=== PATIENT | male | born 1955 | race American Indian/Alaskan Native ===

== ENCOUNTER 2018-09-16 16:56 | Inpatient (IN) | payer OTHER ==
[~2018-09-16] VITALS: Ht 175.3 cm; Wt 132.3 kg
[~2018-09-16 16:56] MED LIST: ASPIRIN EC81 MG PO; B-12 DOTS500 MCG PO; BACTRIM DS TAB1 EACH PO; CRESTOR20 MG PO; FLOMAX0.4 MG PO; GLUCOPHAGE XR500 MG PO; HIBICLENS118 ML TOP; HYDROCHLOROTHIA25 MG PO; HYDROPHILIC120 GM TOP; LANTUS100 UNIT/1; LANTUS100 UNIT/1 SUB-Q; LANTUS100 UNITS/; LANTUS100 UNITS/ SUB-Q; LISINOPRIL20 MG PO; LISINOPRIL40 MG PO; METFORMIN HCL500 MG PO; MICROZIDE12.5 MG PO; NORVASC10 MG PO; NOVOLOG FL100 UNIT/1 SUB-Q; PREDNISONE20 MG PO; VITAMIN D35000 UNI1 PO; ZESTRIL10 MG PO
[2018-09-16] MEDS ORDERED: KEFLEX500 MG PO (19:21)
[2018-09-16] MEDS ORDERED: LIPITOR80 MG PO (19:27)
[2018-09-16] MEDS ORDERED: METOPROLOL TART50 MG PO (19:28)
--- NOTE | 2018-09-16 22:37 | NUR ---
PATIENTS ADMISSION COMPLETED. PATIENTS VITALS TAKEN BY SKIP TENDER. PATIENT DENIES ANY NEEDS. CALL LIGHT IN REACH.
--- NOTE | 2018-09-16 23:24 | NUR ---
PATIENT GIVEN SCHEDULED MEDICATIONS PER ORDER. PRN TYLENOL PROVIDE PER PATINET REQUEST FOR "8/10 PAINFULS SPASMS IN RIGHT LOWER LEG". PATIENT DENIES ANY FURTHER NEEDS. CALL LIGHT IN REACH.
--- NOTE | 2018-09-16 23:30 | NUR ---
PT RESTING IN BED, EYES CLOSED, SCHED ABX STARTED. PT AOX4, ASSESSMENT COMPLETE, LS CLEAR. PT DENIES ANY PAIN AT THIS TIME, PT STATES THAT HE HAS HAD A HX OF PAIN IN HIS BLE, ESPECIALLY HIS RIGHT EXTREMITY, COBAN WITH GAUZE NOTED ON RIGHT MID FOOT. ERYTHEMA NOTED TO PT'S RIGHT HARVEY WELL, APPEARS SAUL/SCALY, WARM. PT DENIES AN NUMBNESS OR TINGLING AT THIS TIME, CMS INTACT. NO REQUESTS AT THIS TIME, IV FLUIDS INFUSING PER EMAR, CALL LIGHT WITHIN REACH, FALL PRECAUITONS IN PLACE. PT ORIENTED TO ROOM, EDUCATION PROVIDED REGARDING MEDS/ DISEASE PROCESS.
--- NOTE | 2018-09-17 02:08 | NUR ---
PATIENT ASSISTED TO THE RESTROOM A SBA. PATIENT IS STEADY ON HIS FEET. PATIENT WAS ABLE TO VOID. PATIENT IS NOW BACK IN BED RESTING. PATIENTS RIGH LEG ELEVATED ON PILLOWS. NO FURTHER NEEDS NOTED. CALL LIGHT IN REACH.
--- NOTE | 2018-09-17 02:30 | NUR ---
IN ROOM FOR VITALS, VSS, PT AOX4, APPROPRIATE, ASSESSMENT COMPLETE, PT DENIES ANY PAIN AT THIS TIME, ASSESSMENT UNCHANGED FROM PREVIOUS. IV FLUIDS INFUSING PER EMAR WNL, CALL LIGHT WITHIN REACH, FALL PRECAUTIONS IN PLACE.
--- NOTE | 2018-09-17 03:30 | NUR ---
PT RESTING IN BED, EYES CLOSED, BREATHS EVEN, UNLABORED, NO REQUESTS AT THIS TIME, IV FLUIDS INFUSING PER EMAR WNL, CALL LIGHT WITHIN REACH. FALL PRECAUITONS IN PLACE.
--- NOTE | 2018-09-17 04:53 | NUR ---
PT IV ALARM SOUNDING. PT WOKE WHEN RN IN ROOM. REQUESTED PILLOW SUPPORTS FOR BOTH ARMS, AND NEW PILLOW UNDER HEAD. GRANTED. DENIES FURTHER NEEDS AT THIS TIME.
--- NOTE | 2018-09-17 05:21 | NUR ---
PT RESTING IN BED, EYES CLOSED, BREATHS EVEN, UNLABORED, NO REQUESTS AT THIS TIME, CALL LIGHT WITHIN REACH, FALL PRECAUTIONS IN PLACE. IV FLUID INFUSING PER EMAR WNL.
--- NOTE | 2018-09-17 06:08 | NUR ---
PT AOX4 THIS SHIFT, NO C/O PAIN THIS SHIFT. GAUZE DRESSING W/COBAN TO BOTTOM OF PT'S RIGHT FOOT. C/D/I. IV FLUIDS INFUSING PER EMAR. IV ABX GIVEN PER EMAR. 1PERSON SBA. ADA DIET. ACCUCHECKS.
--- NOTE | 2018-09-17 06:41 | NUR ---
PT UP TO BATHROOM WITH 1PERSON SBA, PT TOLERATED AMBULATING WELL, PT BACK TO BED NOW, PT GIVEN COFFEE PER PT'S REQUEST. NO FURTHER REQUESTS AT THIS TIME, IV FLUIDS INFUSING PER EMAR WNL. CALL LIGHT WITHIN REACH. FALL PRECAUTIONS IN PLACE.
--- NOTE | 2018-09-17 07:25 | NUR ---
PATIENT RESTING IN BED, BLOOD SUGAR TAKEN. PATIENT WASHED HANDS AND FACE WITH WARM WASH CLOTH. CALL LIGHT IN REACH. NO OTHER NEEDS AT THIS TIME.
--- NOTE | 2018-09-17 07:41 | NUR ---
Pt sleeping at this time, resp even and non labored. Pt appears to be comfortabl, no notable distress. Per report pt voiding Q/S urine output. Personal supplies and call light within reach. No needs at this time.
--- NOTE | 2018-09-17 10:46 | NUR ---
PATIENT RESTING IN BED, CALL LIGHT IN REACH. PATIENT STATES HE WOULD LIKE TO SHOWER LATER THIS AFTERNOON. NO OTHER NEEDS AT THIS TIME.
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
--- NOTE | 2018-09-17 15:03 | NUR ---
Pt in shower at this time with assist of u.s. commissioner. Pt has no needs at this time.
--- NOTE | 2018-09-17 15:34 | NUR ---
THIS CHURCH ORGANIST ASSISTED PATIENT UP INTO SHOWER, PATIENT SHOWERED INDEPENDENTLY WITH SUPERVISION. PATIENT BACK IN BEDSIDE RECLINER, CALL LIGHT IN REACH. NO OTHER NEEDS AT THIS TIME.
--- NOTE | 2018-09-17 15:53 | NUR ---
PT PLAN OF DC AT THIS TIME WILL BE TO RETURN HOME WITH HIS FAMILY.
[2018-09-17] MEDS ORDERED: GLUCOPHAGE500 MG PO (15:55)
--- NOTE | 2018-09-17 17:14 | NUR ---
BS REPORTED 53. PER PROTOCL ADMIN GLASS OF JUICE. WILL RECHECK BS IN 15 MIN AND CALL PROVIDER WITH RESULTS. PT AWAKE, ALERT AND ORIENTED X3. PT REPORTS HE WAS SLEEPING AND DID NOT FEEL SYMPTOMATIC AT ALL UNITL HE WOKE UP AND NOTICED HE WAS SWEATING A BIT. PT TOLERATING PO WELL. WILL MONITOR AND FOLLOW PROTOCOL FOR HYPOGLYCEMIA.
--- NOTE | 2018-09-17 17:29 | NUR ---
Blood sugar now 54. Gave pt full glass of juice per protocol. Pt is awake, alert and oriented x3. Will check bs again in 15 min. Dinner ordered.
--- NOTE | 2018-09-17 17:55 | NUR ---
ATTEMPTED TO CALL PROVIDER, NO ANSWER AT THIS TIME. BS HAS INCREASED TO 73. PT IS AWAKE, DOING WELL TOLERATING SNACKS AT THIS TIME. WILL CONTINUE TO ATTEMPT TO CONTACT PROVIDER. PT HAS NO NEEDS AT THIS TIME AND REPORTS HE "FEELS FINE". WILL CONTINUE TO MONITOR. SWEATING HAS SUBSIDED COMPLETELY.
--- NOTE | 2018-09-17 17:57 | NUR ---
PATIENT SITTING UP IN BED WAITING FOR DINNER. RN IN ROOM. CALL LIGHT IN REACH. NO OTHER NEEDS AT THIS TIME.
--- NOTE | 2018-09-17 18:10 | NUR ---
PT A&OX3. ON RA. IV SL. PT TOLERATING DIET. BS DECREASED TO 53 THIS SHIFT, INCREASING TO 73. PT TOLERATING DIET. WELL. PROVIDER TO BE NOTIFIED. 1PA. DECLINED PAIN MEDICATION THIS SHIFT.
--- NOTE | 2018-09-17 18:33 | NUR ---
SPOKE WITH DR. ABRAHAM REGARDING DECREASED BLOOD SUGARS' THIS EVENING. ORDER TO HOLD INSULIN FOR THIS MEAL; NON ADMIN DOSE IN EMAR THIS MEAL. PHARMACY QUESTIONED CURRENT LISINOPRIL DOSE OF 40MG PO PT STATES HE ONLY ACTUALLY TAKES 10MG AT HOME. PER DR. ABRAHAM HE WOULD LIKE TO KEEP DOSE AT 40MG INDICATED IN EMAR. DR. VELAZCO STATED NEW ADJUSTMENTS MADE IN EMAR FOR INSULIN MANAGEMENT.
--- NOTE | 2018-09-17 20:53 | NUR ---
COOP WITH ASSESSMENT, IVF VANCOMYCIN INFUSING, NO C/O ADVERSE REACTION. . DRESSING ON R FOOT
--- NOTE | 2018-09-17 22:10 | NUR ---
ROUNDED CHARGE. PATIENT IS RESTIN GIN BED WATCHING TV. PATIENT DENIES ANY COMMENTS, QUESTIONS OR CONCENRS. NO NEEDS NOTED. CALL LIGHT IN REACH.
--- NOTE | 2018-09-17 23:00 | NUR ---
RESTING, EYES CLOSED, ON ROOM AIR, AWAKENS EASILY, NO C/O APIN. R FOOT ELEVATED WITH PILLOWS, GOOD CMS, DRESSING CDI.
--- NOTE | 2018-09-18 02:53 | NUR ---
UP TO BR, VOIDED, BACK TO BED WITH 1PA, TOLERATED WELL, NO C/O PAIN DRESSING R FOOT INTACT
--- NOTE | 2018-09-18 03:47 | NUR ---
up to br from bed, voided and had a soft bm, up to chair r leg elevated, no c/o pain or resp distress, watching tv, no c/o hypoglycemia s/sx.
--- NOTE | 2018-09-18 06:13 | NUR ---
PT MEDICATED WITH TYLENOL 650MG PO C/O R FOOT PAIN. LEG ELEVATED WITH PILLOWS, DRESSING IN PLACE
--- NOTE | 2018-09-18 06:21 | NUR ---
PT HAS BEEN UP TO BR SEVERAL TIMES WITH ONE ASSIST, TO CHAIR FOR 2 HOURS, TOLERATED WELL, BACK TO BED. EDEMA 2+ R LE. DRESSING R FOOT INTACT. 1+ GENERALIZED EDEMA REST OF BODY, PT OBESE. MEDICATED WITH TYLENOL X1/ C/O PAIN. NO C/O N/V. NO C/O ADVERSE REACTION TO IV ABX. CURRENTLY AWAKE WATCHING TV
--- NOTE | 2018-09-18 07:27 | NUR ---
REPORT RECEIVED FROM STEPHANY FORD. PT AWAKE AND UP TO CHAIR. PT REPORTS "MORE" SWELLING IN RIGHT FOOT "COMPARED TO YESTERDAY." PT DENIES PAIN AND NAUSEA. PT ASSISTED WITH ORDERING BREAKFAST. NO ADDIITONAL REQUESTS OR COMPLAINTS. AT THIS TIME. CALL LIGHT WITHIN REACH.
--- NOTE | 2018-09-18 08:56 | NUR ---
MORNING ASSESSMENT AND MEDICATION DUE. THIS RN TO BEDSIDE. PT UP TO CHAIR, EATING BREAKFAST. PT DENIES PAIN AND NAUSEA. ASSESSMENT DONE, PERIPHERAL NEUROPATHY NOTED UP TO MID CALF. ABDOMINAL DISTENTION NOTED, PT REPORTS THIS IS "NORMAL." SMALL AMOUNT OF DRAINAGE NOTED ON THE BOTTOM (NEAR HEEL) OF RIGHT FOOT DRESSING. MEDICATIONS GIVEN (SEE MAR). PT STATES NO ADDITIONAL REQUESTS OR COMPLAINTS AT THIS TIME. CALL LIGHT WITHIN REACH.
--- NOTE | 2018-09-18 10:36 | NUR ---
NEW PIV STARTED PER PROTOCOL, BRISK BLOOD RETURN NOTED WITH IV START. VANCO STARTED (SEE MAR). PT VERBALIZES UNDERSTANDING TO CONTACT RN IF IV SITE BEGINS TO HURT. DIET COLA PROVIDED PER PT REQUEST. PT REMAINS UP TO CHAIR. NO ADDITIONAL REQUESTS OR COMPLAINTS AT THIS TIME. CALL LIGHT WITHIN REACH.
--- NOTE | 2018-09-18 12:15 | NUR ---
PTS CBG NOTED TO BE 80 WITH PREVIOUS HYPOGLYCEMIC EPSIDOE YESTERDAY AFTERNOON. MD CONSULTED REGARDING INSULIN DOSAGES, NEW ORDERS PLACED. PT UPDATED ON PLAN OF CARE. DIABETIC DIET EDUCATION DONE. EDUCATION R/T WOUND HEALING, BLOOD SUGAR AND "WHAT IS A CARBOHYDARTE?" DONE. PT VERBALIZES UNDERSTANDING AND POINTS OUT CARBOHYRATES ON HIS LUNCH PLATE. ASSESSMENT DONE. MD ORDERS TO HOLD LUNCH TIME INSULIN, MARKED NOT GIVEN. PT VISITING WITH AND EATING LUNCH. NO ADDITIONAL REQUESTS OR COMPLAINTS AT THIS TIME. CALL LIGHT WITHIN REACH.
--- NOTE | 2018-09-18 12:40 | NUR ---
PT CALL LIGHT ON. PT REQUESTS ASSISTANCE UP TO RESTROOM. PT ASSISTED UP, SBA, PT TOLERATED WELL. PT 800ML VOIDS WITHOUT ISSUE. PT ENCOAURGED TO WALK IN HALLWAY. PT ABLE TO MAKE 2 LAPS AROUND UNIT. PT DENIES DIZZINESS AND PAIN IN FOOT. SOB WITH AMBULATON. PT BACK TO ROOM AND UP TO CHAIR. PT WATCHING TV. NO ADDITIONAL REQUESTS OR COMPLAINTS. CALL LIGHT WITHIN REACH.
--- NOTE | 2018-09-18 13:55 | NUR ---
PT CALL LIGHT ON. PT REQUESTS ASSISTANCE BACK TO BED. PT UP AND BACK TO BED, SBA. PT REQUESTS "SOMETHING SWEET TO EAT." SUGER FREE JELLO AND PUDDING PROVIDED. EDUCATION DONE R/T DIABETES AND SUGAR INTAKE. PT VERBALIZES UNDERSTANDING AND STATES THAT "SUGAR FREE IS FINE." CALL LIGHT WITHIN REACH. NO ADDITIONAL REQUESTS OR COMPLAINTS AT THIS TIME.
--- NOTE | 2018-09-18 14:30 | NUR ---
PATIENT SAID MAYBE TAKE A SHOWER LATER.
--- NOTE | 2018-09-18 16:28 | NUR ---
THIS RN TO BEDSIDE FOR ROUNDS WITH MD. PT DENIES PAIN AND NAUEA. RIGHT LEG/FOOT CONTINUES TO APPEAR MORE SWOLLEN THAN LAST ASSESSMENT. MD REMOVES DRESSING FROM RIGHT FOOT. YELLOW DRAINAGE NOTED. RIGHT LEG HOT COMPARED TO LEFT LEG. NON-AHERANT GAUZE APPLIED WITH COBAN TO RIGHT FOOT PER DR. ABRAHAM'S INSTRUCTONS. DR. WOOD CALLED (PER DR. ABRAHAM'S INSTRUCTIONS) AND STATES HE WILL BE IN TO SEE PT SOON AND STATES THAT PT SHOULD NOT SHOWER, KEEP FOOT DRY FOR NOW. FULL ASSESSMENT DONE. MEDICATIONS GIVEN. CBG= 86. DR. ABRAHAM CONSULTED. INSULIN ORDERS CHANGED. PT AWAITING DINNER. NO ADDITIONAL REQUESTS OR COMPLAINTS AT THIS TIME. CALL LIGHT WITHIN REACH.
--- NOTE | 2018-09-18 17:57 | NUR ---
PT HERE FOR LEFT FOOT CELLULITS. DR ENCARNACION IN TO REVIEW WOUND STATUS TODAY, NEW DRESSING APPLIED, NEW DRESSING ORDERS PLACED, SHOE IN PLACE. INCREASED SWELLING AND HEAT TO RIGHT LEG TODAY. NEW PIV IN RFA, SL. INSULIN ORDERS DC'D TODAY R/T LOW BLOOD SURGARS, ONLY SLINDING SCALE REMAINS. PT UP TO AMBULATE TODAY. NO SHOWERS PER MD ORDER, BED BATH DECLINED TODAY. PT USES CALL LIGHT APPROPRIATLY.
--- NOTE | 2018-09-18 19:00 | NUR ---
SHIFT REPORT RECEIVED FROM DAYSHIFT RN AT BEDSIDE. PT AWAKE, DENIES NEEDS AT THIS TIME. RR EVEN AND UNLABORED. CALL LIGHT IN REACH.
--- NOTE | 2018-09-18 19:00 | NUR ---
HELPED PT BACK TO BED FROM THE BATHROOM. BEDSIDE TABLE AND CALL LIGHT IN REACH.
--- NOTE | 2018-09-18 21:47 | NUR ---
ASSESSMENT COMPLETE. PT A/OX3. PT DENIES PAIN AT THIS TIME. GENERALIZED 1-2+ EDEMA NOTED TO BLE, SKIN TEMPERATURE WARMER TO RLE. DRESSING CDI ON RLE. IV ABX INFUSING, SITE WNL. PT DENIES FURTHER NEEDS, CALL LIGHT IN REACH.
--- NOTE | 2018-09-18 21:48 | NUR ---
VITALS AND I&OS DONE AND CHARTED. BEDSIDE TABLE AND CALL LIGHT IN REACH. PT NEEDS NOTHING AT THIS TIME.
--- NOTE | 2018-09-18 22:00 | NUR ---
INFORMED BY HOME STAGER NOVEMBER OF PT'S VS. HR 53, BP 138/67, MAP 84. INFORMED RN CORRECTIONAL LOGAN OF PT'S VS. INSTRUCTED BY RN CORRECTIONAL TO WAIT ON ADMINISTERING PT'S SCHEDULED NICARDIPIN AND METOPROLOL TO SEE IF HR RISES. OTHER SCHEDULED MEDICATIONS GIVEN WITHOUT CONCERN.
--- NOTE | 2018-09-18 22:15 | NUR ---
Informed by lyric november of pt's 53hr. bp 138/67. This rn had an apical hr of 54. This rn infomred bellows charger assembler riaz. instructed by emma mabry to hold scheduled metoprolol and nicardipin and recheck hr "a little later in the evening". At 2250, this rn rechecked pt's hr. apical hr of 54, bp 154/85. Again informed bellows charger assembler of results, instructed by bellows charger assembler to hold scheduled metoprolol and nicardipin due to hr parameters in EMAR.
--- NOTE | 2018-09-18 23:00 | NUR ---
BP RESULT OF 154/58, MAP OF 84. APICAL HR OF 54. CHIEF LIBRARIAN BRANCH OR DEPARTMENT LOGAN AWARE. INSTRUCTED BY CHIEF LIBRARIAN BRANCH OR DEPARTMENT LOGAN TO HOLD SCHEDULED CARDIAC MEDICATIONS. THIS RN ASKED IF DR ABRAHAM SHOULD BE MADE AWARE, INSTRUCTED BY CHIEF LIBRARIAN BRANCH OR DEPARTMENT LOGAN THAT CALLING DR ABRAHAM WAS NOT NECESSARY.
--- NOTE | 2018-09-18 23:13 | NUR ---
HELPED PT BACK TO BED FROM THE BATHROOM. TWO PILLOWS GIVEN. BEDSIDE TABLE AND CALL LIGHT IN REACH.
--- NOTE | 2018-09-19 00:10 | NUR ---
SPOKE TO DR ABRAHAM REGARDING PT'S HR AND BP. DR ABRAHAM AWARE OF LAST SET OF VS TAKEN BY THIS RN AT 2250. APICAL HR 54, BP 154/68, MAP 86. INSTRUCTED TO GIVE SCHEDULED METOPROLOL AND NICARDIPIN. INSTRUCTED TO ONLY HOLD METOPROLOL IF HR IS LESS THAN 50 BPM. SCHEDULED CARDIAC MEDICATIONS GIVEN. 2200 SCHEDULED IV VANCO ALSO GIVEN, SITE WNL. PT VERBALIZED DISCOMFORT AT BLE, GENERALIZED EDEMA NOTED, PILLOWS PLACED UNDER BLE FOR ELEVATION. NO FURTHER NEEDS, CALL LIGHT IN REACH.
--- NOTE | 2018-09-19 00:30 | NUR ---
IV VANCO INFUSING, SITE WNL. RR EVEN AND UNLABORED. CALL LIGHT IN REACH, PT DENIES FURTHER NEEDS.
--- NOTE | 2018-09-19 01:11 | NUR ---
PT RESTING IN BED, EYES CLOSED. RR EVEN AND UNLABORED. IV ABX COMPLETE, FLUSHING NOW, SITE WNL. CALL LIGHT IN REACH.
--- NOTE | 2018-09-19 04:48 | NUR ---
ASSESSMENT COMPLETE. NO NEW CONCERNS. PT A/OX4, DENIES PAIN. PT WISHES FOR PRN BS CHECK PT STATED, "I FEEL HUNGRY AND I FEEL LIKE I DO SOMETIMES WHEN MY BS IS GONNA BE LOW". [employer] NOVEMBER COMPLETED BS CHECK, RESULT OF 91. SF SNACK PROVIDED FOR PT'S HUNGER. PT DENIES DIZZINESS, SWEATINESS. NO FURTHER NEEDS, CALL LIGHT IN REACH.
--- NOTE | 2018-09-19 04:56 | NUR ---
VITALS AND I&OS DONE AND CHARTED. BLOOD SUGAR DONE WELL. HELPED PT GET TO THE BED FROM THE CHAIR. PUDDING AUTOMATIC SCREWMAKER PER REQUEST OF PT. BEDSIDE TABLE AND CALL LIGHT IN REACH.
--- NOTE | 2018-09-19 06:39 | NUR ---
PT HAD A KATYA, SLEPT ON AND OFF DURING SHIFT. PT A/OX4, DENIED PAIN. PT AMBULATES 1PSBA. FOOT BOOT TO RIGHT LE WITH LEG DRESSING. CARDIAC MEDICATIONS INITIALLY HELD DUE TO 54HR, BUT GIVEN AROUND 0000 PER REDDYS ORDERS. PT ON ADA DIET, WITH INSULIN SS. PT SL, IV SITE WNL. PT USES CALL LIGHT APPROPERIATELY.
--- NOTE | 2018-09-19 07:30 | NUR ---
PATIENT REPORT RECEIVED FROM JEFFRY HAMMOND, PATIENT IS SLEEPY AND REMAINS ASLEEP DURING REPORT BUT WAKES EASILY TO HIS NAME. PATIENT BED IN THE LOW POSITION AND RAILS ARE UP.
--- NOTE | 2018-09-19 08:19 | NUR ---
PATIENT HAS DRESSING TO THE RIGHT FOOT THAT IS INTACT WITH COBAN, NETTING AND THE BLUE WALKING SHOE, CMS IS INTACT AT THIS TIME. HE DENIES ANY PAIN CURRENTLY AND BLOOD SUGAR IS 95, NO INSULIN REQUIRED AT THIS TIME. PATIENT GIVEN A DIET COKE AND BREAKFAST SET UP FOR HIM.
--- NOTE | 2018-09-19 11:01 | NUR ---
Pt. up from chair to bathroom for bedbath; repositioned in chair with feet elevated; Pt. lungs clear, equal bilateral, sinus rhythm, no murmurs or rubs detected, R LE dressing dry and intact, cap refill 2 sec. bilateral dorsalis pedis pulses present, R LE skin warm and dry, bruising present. Pain at 0.
--- NOTE | 2018-09-19 11:39 | NUR ---
KATIE FROM NUTRITION IN TO SPEAK WITH THE PATIENT RE: ADA DIET
--- NOTE | 2018-09-19 11:46 | NUR ---
PATIENT HAS HAD DIABETES FOR APPROXIMATELY 8 YEARS. 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 PATIENT TAKES INSULIN AT HOME AND SAYS HE SOMETIMES HAS A HIGH BLOOD SUGAR IN THE MIDDLE OF THE NIGHT SO HE WILL TAKE SOME SHORT ACTING INSULIN WITH A BITE OF FOOD. HIS ALSO HAS DIABETES AND HER BLOOD SUGARS ARE IN GOOD CONTROL. PATIENT SAID "IF I LISTENED TO MY I'D HAVE GOOD BLOOD SUGARS, TOO." HE EATS LARGE PORTIONS. HAS BEEN AVOIDING RICE AND PASTA. 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 HE PROBABLY WILL GET AN APPOINMENT WITH THE NEW DIETITIAN OUT AT [facility]. LITTLE EDUCATION PROVIDED SINCE PATIENT NOT NEW TO DIABETES BUT TRIED TO REINFORCE FOLLOWING UP WITH A DIETITIAN AT [employer] AND TO EAT REGULAR MEALS. WILL REMAIN AVAILABLE IF NEEDED.
--- NOTE | 2018-09-19 12:44 | NUR ---
Pt. up in chair eating, R LE wound dry and warm, LE cap. refill 1.5 sec bilateral, skin warm dry, pedal pulses present equal bilateral. Pt. pain rate 0.
--- NOTE | 2018-09-19 13:29 | NUR ---
IV ABX HUNG AT THIS TIME, PATIENT ATE 100% OF LUNCH AND DENIES OTHER NEEDS AT THIS TIME. PO KAYEXELAYTE GIVEN AT THIS TIME.
--- NOTE | 2018-09-19 15:22 | NUR ---
WHEN I WENT IN AROUND 2PM PATIENT WAS SITTING UP IN CHAIR WITH FEET ELEVATED.
--- NOTE | 2018-09-19 15:57 | NUR ---
PATIENT STAND BY ASSIST UP TO THE BATHROOM, HE HAD HIS THIRD LOOSE BM SINCE RECEIVING KAYEXELATE PO. PATIENT AMBULATED BACK TO THE CHAIR AND IS AWAITING DINNER. COFFEE AND WATER GIVEN TO THE PATIENT AT THIS TIME.
--- NOTE | 2018-09-19 16:34 | NUR ---
patient's blood glucose was 144 at this time, patient per sliding scale is not receiving insulin at this time. patient remains up in the chair with feet elevated. he has no c/o pain and gown changed at this time. cms intact to the right foot, dressing is cdi
--- NOTE | 2018-09-19 19:10 | NUR ---
SHIFT REPORT RECEIVED FROM DAYSHIFT STEPHANY LANGLEY. PT AWAKE RESTING IN CHAIR, RR EVEN AND UNLABORED. SNACK PROVIDED BY SHIVAM HAMMOND PER PT REQUEST. NO FURTHER NEEDS, CALL LIGHT IN REACH.
--- NOTE | 2018-09-19 20:21 | NUR ---
VITALS AND I&OS DONE AND CHARTED. BEDSIDE TABLE AND CALL LIGHT IN REACH. PT NEEDS NOTHING AT THIS TIME.
--- NOTE | 2018-09-19 21:11 | NUR ---
VITALS DONE AND CHARTED. PER PT REQUEST I GAVE HIM SOME SUGAR FREE JELLO. BEDSIDE TABLE AND CALL LIGHT IN REACH.
--- NOTE | 2018-09-19 21:15 | NUR ---
ASSESSMENT COMPLETE. VSS, SCHEDULED MEDICATIONS GIVEN (SEE EMAR). PT A/OX4, DENIES PAIN. STRONG PEDAL PULSES NOTED BILATERALLY. SMALL YELLOW LIKE SHADOWING NOTED UNDER SYLVIA WRAP, BOOT IN PLACE. IV ABX INFUSING, SITE WNL. NO FURTHER NEEDS, CALL LIGHT IN REACH.
--- NOTE | 2018-09-19 22:32 | NUR ---
PATIENT ASKED TO USE FOR ASSISTANCE TO REST ROOM. HE WAS ASSISTED INTO BED AFTER HE WAS FINSHED USING THE RESTROOM. HE REQUESTED A DIET COLA AND IT WAS APPROVED BY STEPHANY HIRSCH. BEDSIDE TABLE AND CALL LIGHT WAS IN REACH.
--- NOTE | 2018-09-19 22:45 | NUR ---
IV PUMP BEEPING. INFUSION COMPLETE. CONSULTED PRIMARY NURSE, PHILIP IV. pt RESTING WITH EYES CLOSED, RESPIRATIONS REGULAR. CALL LIGHT WITHIN REACH.
--- NOTE | 2018-09-20 00:20 | NUR ---
SUPERVISOR SPINNING NOVEMBER COLLECTED BS AND BP. BS RESULT OF 144, BP RESULT OF 126/56 (MAP 74). HR 60. PT STATES, "I FEEL FINE" TO SUPERVISOR SPINNING NOVEMBER. NO FURTHER NEEDS, PT QUICKLY WENT BACK TO SLEEP PER SUPERVISOR SPINNING NOVEMBER.
--- NOTE | 2018-09-20 00:20 | NUR ---
SCHEDULED VANCO INFUSING, SITE FLUSHED AND WNL. PT AMBULATED SBA TO RESTROOM TO VOID. PT REPORTS MILD DIZZINESS, AND WISHES TO HAVE BS CHECKED. PT SITTING IN BATHRROM, INSTRUCTED TO PULL CORD WHEN DONE, PT VERBALIZES UNDERSTANDING.
--- NOTE | 2018-09-20 00:37 | NUR ---
VITALS AND BLOOD SUGAR DONE AND CHARTED. INFORMED HIS RN TORREY OF RESULTS. HELPED PT BACK TO BED FROM THE BATHROOM. BEDSIDE TABLE AND CALL LIGHT IN REACH.
--- NOTE | 2018-09-20 02:40 | NUR ---
ASSESSMENT COMPLETE. NO NEW CONCERNS. PT RETING COMFORTABLY, RR EVEN AND UNLABORED. RLE DRESSING INTACT, BOOT IN PLACE. NO NEW SHADOWING NOTED. CALL LIGHT IN REACH. PT SL, SITE WNL.
--- NOTE | 2018-09-20 05:59 | NUR ---
PT HAD A GOOD NIGHT. PT A/OX4, DENIES PAIN THIS SHIFT. PT AMBULATES 1PA, TOLERATES WELL. PT ON ADA DIET WITH SCHEDULED ACCUCHECKS WITH INSULIN SS. PT DENIES NAUSEA THIS SHIFT, BOWEL TONES ACTIVE. BOOT AND DRESSING TO RLE, SCHEDULED DRESSING CHANGE TO BE DONE TODAY (09/20/18). PT SL, SCHEDULED IV ABX, SITE WNL. VSS. USES CALL LIGHT APPROPERAITELY.
--- NOTE | 2018-09-20 07:15 | NUR ---
REPORT RECEIVED FROM STEPHANY HIRSCH. PT RESTING ON LEFT SIDE WITH EYES CLOSED, SNORING NOTED, REGULAR RATE AND RHYTHEM. BED RAILS UP. CALL LIGHT WITHIN REACH.
--- NOTE | 2018-09-20 08:53 | NUR ---
MORNING ASSESSMENT AND MEDICATIONS DUE. THIS RN TO BESIDE. PT AWAKE AND DENIES PAIN AND NAUSEA. PT UP FOR MORNING CARES, BRUSHES TEETH AND USES RESTROOM WITH SBA. PT UP TO CHAIR FOR BREAKFAST. ASSESSMENT DONE. DRESSING CHANGED TO RIGHT FOOT PER MD ORDER. WOUND HAS GRANULATION AROUND EDGES AND IS YELLOW IN CENTER. EDGES ARE MACURATED AND SURROUNDING AREA IS BLANCHABLE. HEAT IN RIGHT LEG IS DIMISHED TODAY AND TEMPERATURE IS NEAR THAT OF LEFT LEG. MEDICATIONS GIVEN (SEE MAR). PT EATING BREAKFAST. CALL LIGHT WITHIN REACH.
--- NOTE | 2018-09-20 09:40 | NUR ---
SIMEON PERFORMED HIS OWN AM CARE, VS DONE, PATIENT NEEDED NO OTHER ASSISTANCE AT THE MOMENT
[2018-09-20] MEDS ORDERED: DOXYCYCLINE HY100 MG PO (10:18)
[2018-09-20] MEDS ORDERED: NORVASC5 MG PO (10:20)
--- NOTE | 2018-09-20 10:23 | NUR ---
THIS RN TO ROOM WITH MD FOR ROUNDS. EDUCATION DONE REGARDING DIABETES AND THE IMPORTANCE OF MAINTAINING HEALTHY BLOOD SUGAR VALUES FOR WOUND HEELING. PT ANTICIPATING DISCHARGE LATER TODAY (AFTER VANCO INFUSION). PHONE ARMATURE REPAIRER PROVIDED FOR PT. PT CALLING . NO REQUESTS OR COMPLAINTS AT THIS TIME.
--- NOTE | 2018-09-20 10:56 | NUR ---
VANCO ARRIVED FROM [facility]. PIV ASSESSED, WNL. GIVEN ORDERED (SEE MAR). PT ANTICIPATING DISCHARGE AFTER VANCO INFUSION. NO ADDITIONAL REQUESTS OR COMPLAINTS AT THIS TIME. CALL LIGHT WITHIN REACH.
--- NOTE | 2018-09-20 12:44 | NUR ---
PT CALL LIGHT ON. PT STATES HE IS READY FOR DISCHARGE. DISCHARGE INSTRUCTIONS REVIEWED, AT BESIDE FOR DISCHARGE INSTRUCTIONS. PT AND VERBALIZE UNDERSTANDING OF DISCHRAGE INSTRUCTIONS AND STATE THEIR QUESTIONS HAVE BEEN ANSWERED. PHARMACIST TO BEDSIDE TO REVIEW MEDICATIONS. PT AND VERBALIZE UNDERSTANDING OF MEDICATIONS EXCEPT PT STATES "I DONT' HAVE A SLINDING SCALE I JUST GIVE MYSELF WHATEVER I FEEL LIKE." PT ASKED TO WAIT WHILE MD IS CONSULTED REGARDING SLIDING SCALE HE SHOULD BE USING AT HOME. 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 STEADY ON FEET AND DENIES DIZZINESS. CALL LIGHT WITHIN REACH. AWAITING RESPONSE FROM PHARMACY OR MD REGARDING INSLUIN SLIDING SCALE FOR HOME USE.
--- NOTE | 2018-09-20 13:10 | NUR ---
MD STATES THAT PCP WILL FOLLOW UP WITH PT REGARDING SLIDING SCALE INSULIN. PT VERBALIZES UNDERSTANDING TO FOLLOW UP WIHT PCP REGARDING INSULIN DOSAGING. PT WHEELED FROM CLINIC. PT AND STATE THEY HAVE NO ADDITIONAL QUSTIONS, COMPLAINTS OR CONCERNS AT THIS TIME.
== END 2018-09-20 13:10 | disposition home or self-care (01) | DRG 623 ==
LOC: ED 16:56 → MS 20:21
PROVIDERS: ADMIT Internal Medicine
PROC: 0JBQ0ZZ Excision of Right Foot Subcutaneous Tissue and Fascia, Open Approach (ICD-10-PCS; principal; 2018-09-18)
DX: E11.628 Type 2 diabetes mellitus with other skin complications (principal); L03.115 Cellulitis of right lower limb; L97.418 Non-pressure chronic ulcer of right heel and midfoot with other specified severity; E11.65 Type 2 diabetes mellitus with hyperglycemia; E11.42 Type 2 diabetes mellitus with diabetic polyneuropathy; I10 Essential (primary) hypertension; E78.5 Hyperlipidemia, unspecified; M47.9 Spondylosis, unspecified; D64.9 Anemia, unspecified; E11.621 Type 2 diabetes mellitus with foot ulcer; E87.5 Hyperkalemia; T46.4X5A Adverse effect of angiotensin-converting-enzyme inhibitors, initial encounter; I25.10 Atherosclerotic heart disease of native coronary artery without angina pectoris; Z95.1 Presence of aortocoronary bypass graft; Z79.82 Long term (current) use of aspirin; Z79.4 Long term (current) use of insulin; Z79.899 Other long term (current) drug therapy
CPT/HCPCS: 36415; 73630; 80048; 80053; 80202; 82607; 82728; 82746; 83036; 83540; 83605; 83735; 84466; 85025; 87070; 87205; 96365; 99284-25; J1335; J1650; J1815; J3370; J7060; J7120

== ENCOUNTER 2020-05-12 14:16 | Inpatient (IN) | payer MEDICARE, OTHER ==
[~2020-05-12] VITALS: Ht 175.3 cm; Wt 111.6 kg
--- OUTSIDE RECORDS SUMMARY | ~2020-05-12 | XMS | Encounter Summary ---
Demographics + + + | Address | [address] | | | [place] [address] | + + + | Home Phone | | + + + | Preferred Language | Unknown | + + + | Marital Status | Legally | + + + | Christianity Affiliation | 1041 | + + + | Race | or | + + + | Ethnic Group | Not or | + + + Author + + + | Author | [facility] | | | and [place] | + + + | Organization | [facility] | | | and [place] | + + + | Address | Unknown | + + + | Phone | Unavailable | + + + Support + + + + + | Name | Relationship | Address | Phone | + + + + + | Jenniffer Chew | ECON | [address] | | | | | [address] | | | | | [address] | | + + + + + Care Team Providers + +------+ + | Care Cardroom Plastic Card Grader Name | Role | Phone | + +------+ + | Kaylan Montaño PA-C | PCP | | + +------+ + Encounter Details +--------+ + + + + | Date | Type | Department | Care Team | Description | +--------+ + + + + | 06/14/ | Hospital | [facility] | Kendall Morales MD | Coronary artery | | 2016 - | Encounter | [facility] | [address] | disease involving | | | | CARE [address] | [place], [place] | [place] coronary | | 06/22/ | | [address] | [address] | artery of [place] | | 2016 | | [place], [place] | | heart with unstable | | | | [address] | | angina pectoris | | | | [phone] | | (HCC) | +--------+ + + + + Social History + +-------+ +--------+------+ | Tobacco Use | Types | Packs/Day | Years | Date | | | | | Used | | + +-------+ +--------+------+ | Former Smoker | | | | | + +-------+ +--------+------+ + + +---------+ + | Alcohol Use | Drinks/Week | oz/Week | Comments | + + +---------+ + | No | | | | + + +---------+ + + + + | Sex Assigned at | Date Recorded | | | | + + + | Not on file | | + + + documented as of this encounter Last Filed Vital Signs + + + + + | Vital Sign | Reading | Time Taken | Comments | + + + + + | Blood Pressure | 144/73 | 06/22/2016 12:46 PM | | | | | PDT | | + + + + + | Pulse | 69 | 06/22/2016 12:46 PM | | | | | PDT | | + + + + + | Temperature | 36.6 C (97.8 F) | 06/22/2016 12:46 PM | | | | | PDT | | + + + + + | Respiratory Rate | 20 | 06/22/2016 12:46 PM | | | | | PDT | | + + + + + | Oxygen Saturation | - | - | | + + + + + | Inhaled Oxygen | - | - | | | Concentration | | | | + + + + + | Weight | 130.8 kg (288 lb 5.8 | 06/22/2016 12:46 PM | | | | oz) | PDT | | + + + + + | Height | 175.3 cm (5' 9") | 06/22/2016 12:46 PM | | | | | PDT | | + + + + + | Body Mass Index | 42.58 | 06/22/2016 12:46 PM | | | | | PDT | | + + + + + documented in this encounter Discharge Summaries Alena Coto PA-C - 06/21/2016 1:08 PM PDTFormatting of this note might be dif ferent from the original. Discharge Summaries by Alena Coto PA-C at 06/21/16 1873 Author: Alena Coto PA-C Service: Cardiac, Thoracic, and Vascular Surgery Au thor Type: Physician Filler Shaker - Certified Filed: 06/22/16 1033 Date of Service: 06/21/16 1308 Status: Attested Software Packager: Alena Coto PA-C (Physician Filler Shaker - Certified) Cosigner: Xavi Alvarez MD at 06/23/16 1009 Attestation signed by Xavi Alvarez MD at 06/23/16 1009 I have examined Tr Caballero, reviewed the notes, assessments, and/or procedures performed by Alena Mike PA-C, I concur with her documentation of Tr Caballero. Service: Cardiothoracic Surgery Discharge Summary Pt: Tr Caballero AGE/SEX: 61 y.o. male ROOM: [address] [place] [address] : 1955 PCP: Kaylan Montaño Date/Time:06/22/2016 10:29 AM Date of Admission: 06/14/2016 Date of Discharge: 06/22/16 Hospital Day: LOS: 8 days Surgery/Procedure: 06/15/16 1) Coronary artery bypass grafting x 3 ([facility]WOOD-LAD, GSV-OM, GSV- RPDA) 2) EVH Left Post-Op Day: 7 Days Post-Op Discharge Provider: Alena Coto PA-C Treatment Team: Admitting Provider: Kendall Morales MD Discharge Diagnoses: Principal Problem: NSTEMI (non-ST elevation myocardial infarction) (HCC) Active Problems: CAD (coronary artery disease), [place] coronary artery Resolved Problems: * No resolved hospital problems. * POSTOPERATIVE DIAGNOSES 1. Acute myocardial infarction. 2. Severe coronary artery disease. 3. Insulin-dependent diabetes mellitus. 4. Hypertension. 5. Obstructive sleep apnea. 6. Obesity. BRIEF HISTORY OF PRESENTATION: Tr Caballero is a 61 y.o. male w/ Per Dr. Morales's consult note ( ): " The patien t is a 61 y/o male w/ significant PMHx of IDDM, HTN, HUNTER who presented to [place] with a 4 day history of anginal symptoms. He was evaluated at [facility] in [place] and was diag nosed with a NSTEMI. He underwent cardiac angiography. Dr. Morales reviewed the films and wa s noted to have severe coronary artery disease. Patient is asymptomatic. Hospital Timeline: 06/14: Admission 06/15: CABG x3, R-EVH 06/16: ICU: Extubated @0400 , overnight hypoxemia/hypercarbia - BiPAP, diuresis 06/17:ICU: 4-6L NC/BiPAP, d iuresis, Shields out 06/18:ICU: 3-4L NC/BiPAP, d iuresis, Flomax added 06/19: ICU: 3L NC/BiPAP, di uresis, +/-tx to 4RP 06/20: 4RP: 2L NC/BiPAP, di uresis, start Plavix 06/21: diuresis x once 06/22: Discharge to [place]; insurance auth covered 7 days. HOSPITAL COURSE: The patient was taken to the operating room and underwent a CABG x 3; L EVH on 06/15/16. Operation was uneventful (please refer to operative note for details of the same). The patie nt tolerated the procedure well and was transferred to the ICU intubated and in stable condi tion, and was extubated per ICU protocol. He spent 5 nights in the ICU d/t acute ICU deliriu m and respiratory status and on 06/20/16, the patient was transferred to the cardiac unit, h emodynamically stable. He received electrolyte replacement per protocol and continued to broderick e good recovery, ambulating, tolerating diabetic/cardiac diet, and passing bowel movements. Chest tubes and pacing wires were removed without complication, and the patient remained sta ble with the use of BiPAP at night and was on RA at discharge. The patient was fit for disch arge to custodial on 06/22/16. Complications during hospital stay: 1) Fluid overload sp cardiac surgery: given 40mg lasix x 1 -2 times per day x 5. Pt is at pre-op weight of 132kg (291lbs). He was discharged with lasix 40mg daily x 3 days, and KDur 20mEq daily x 3 days. 2) NSTEMI: given Plavix 75mg x 3 months Past Medical History Diagnosis Date Type 2 diabetes mellitus treated with insulin ([facility]) Essential hypertension HUNTER (obstructive sleep apnea) CAD (coronary artery disease) NSTEMI (non-ST elevation myocardial infarction) ([facility]) Hypercholesteremia Neuropathy Bulging lumbar disc Morbid obesity with BMI of 40.0-44.9, adult (HCC) Past Surgical History Procedure Laterality Date Scrotal surgery Hernia repair Vasectomy Coronary artery bypass graft N/A 06/15/2016 Procedure: CABG - HAY; Surgeon: Kendall Morales MD; Location: [facility] MAIN OR; Service: Car diac; Laterality: N/A; No Known Allergies No prescriptions prior to admission DISCHARGE EXAM Vital Signs: BP 153/69 mmHg | Pulse 71 | Temp(Src) 98.2 F (36.8 C) (Oral) | Resp 20 | Ht 1.753 m (5' 9") | Wt 130.8 kg (288 lb 5.8 oz) | BMI 42.56 kg/m2 | SpO2 91% Temp: [97.6 F (36.4 C)-98.2 F (36.8 C)] 98.2 F (36.8 C) (06/22 239) BP: (126-153)/(60-73) 153/69 mmHg (06/22 853) Heart Rate: [68-75] 71 (06/22 853) Resp: [18-20] 20 (06/22 239) SpO2: [91 %-96 %] 91 % (06/21 458) Weight: [130.8 kg (288 lb 5.8 oz)] 130.8 kg (288 lb 5.8 oz) (06/22 530) PE: GENERAL: Pt sitting in chair, A&O x3, NAD NEURO: PERRLA, EOMI; no facial asymmetry, speech normal and non pressured. Normal ROM. SKIN: Mid-sternal incision is C/D/I. L EVH incisions C/D/I. Chest tube removed incision C /D/I. No erythema, edema/inflammation, discharge, or warmth noted around the incision site. No rash or mottling; No evidence of skin breakdown over the occiput, scapulae, elbows, sacru m or heels. HEENT: Sclerae clear, nonicteric; Oral Mucosa moist and pink. NECK: No JVD noted, carotid upstrokes brisk without bruits. No thyromegaly. HEART: RRR w/normal S1/S2. No murmur, rub, heave, or gallop noted. LUNGS: Lungs are CTA w/o wheezing, crackles, or rhonchi. Dim bases. ABDOMEN: Soft, morbidly obese, nontender. BS active. No masses or organomegaly noted. EXTREMITIES: +2 b/l LE edema; B/L radial, dorsalis pedis, and posterior tibialis pulses mod erate. No clubbing or cyanosis noted. DATA CBC: Lab Results Component Value Date WBC 8.93 06/21/2016 RBC 2.70* 06/21/2016 HGB 8.1* 06/21/2016 HGB 8.8* 06/15/2016 HCT 24.1* 06/21/2016 HCT 26* 06/15/2016 MCV 89.0 06/21/2016 MCH 30.0 06/21/2016 MCHC 33.7 06/21/2016 RDW 42.0 06/21/2016 PLT 249 06/21/2016 MPV 9.4 06/21/2016 DIFFTYPE AUTOMATED 06/21/2016 BMP: Lab Results Component Value Date NA 140 06/22/2016 K 4.4 06/22/2016 K 5.3* 06/15/2016 CL 104 06/22/2016 CO2 30 06/22/2016 ANIONGAP 10 06/22/2016 GLUF 88 06/22/2016 BUN 30* 06/22/2016 CREATININE 0.8 06/22/2016 BCR 38 06/22/2016 CA 8.9 06/22/2016 EGFR >60 06/22/2016 Magnesium: Lab Results Component Value Date MG 2.1 06/22/2016 Last 3 Troponin: No results found for: TROPONINI CPK: No results found for: CKTOTAL CKMB: No results found for: CKMB HgBA1c: Lab Results Component Value Date HGBA1C 8.8* 06/16/2016 LABGLYC 206 06/16/2016 TSH: No results found for: TSH, TSHNEO PLAN 1. Patient is discharged to [facility] in [place], [place] for 7 days on 06/22/16. 2. Smoking cessation was discussed with patient. Pt says he doesn't smoke and doesn't inten d to start. 3. Patient was instructed to follow up in clinic with Cardiothoracic Surgery, Nevaeh Coto PA-C on 07/10/16 at 11am. 4. Patient was instructed to follow up in clinic with Take Down Inspector, Dr. Flores in 2 weeks . i. An Ambulatory referral for the [place] office was given. 5. Patient was instructed to follow up in clinic with Primary Care Physician, Dr. Montaño in 2-4 wks. 6. Patient was given an ambulatory referral for Stone Fabricator/ Sleep study for HUNTER. 7. Education: CABG: The patient is being discharged with instructions on cardiac diet, sternal precau tions x 12 weeks and surgical incision care are according to the Society of Thoracic Surgeon guidelines. The patient is given instructions to start cardiac rehabilitation in accordance with interior decorator painting recommendations. Pt advised not to drive for 6 weeks post discharge. Patient was discharged with aspirin, atorvastatin, metoprolol and plavix. PLEASE DO NOT STOP TAKING THE BELOW MEDICATION LIST UNTIL OTHERWISE SPECIFIED BY YOUR CA RDIOTHORACIC SURGEON, THE SERVICE REPRESENTATIVE, OR YOUR PRIMARY CARE PROVIDER. Cardiothoracic Surgery will manage prescriptions until you have seen your Take Down Inspector a nd Primary Care Physician, in which they will resume prescription management afterwards. Disposition: custodial Condition: Stable Code Status: Full Code Discharge Instructions Ambulatory referral to Pulmonology Referral Priority: Routine Referral Type: Consultation Referral Reason: Specialty Services Required Requested Specialty: Pulmonary Disease Number of Visits Requested: 1 Ambulatory referral to Cardiology Referral Priority: Routine Referral Type: Consultation Referral Reason: Specialty Services Required Referred to Provider: NANCY FLORES Requested Specialty: Cardiology Number of Visits Requested: 1 Follow up: Kaylan Motnaño PA-C [address] [place] [address] Alena Coto PA-C [address] [place] [facility] [address] Go on 07/10/2016 Appointment at 11am; Post-op, For wound re-check, For suture removal, If symptoms worsen, A s needed Nancy Flores MD [address] [facility] [place] [address] Schedule an appointment as soon as possible for a visit in 2 weeks Post-op, As needed Medication List START taking these medications aspirin 325 MG EC tablet QTY: 30 tablet Refills: 2 Take 1 tablet by mouth nightly. Replaces: aspirin 81 MG tablet atorvastatin 80 MG tablet QTY: 30 tablet Refills: 2 Commonly known as: LIPITOR Take 1 tablet by mouth nightly. Replaces: rosuvastatin 20 MG tablet clopidogrel 75 MG tablet QTY: 30 tablet Refills: 2 Commonly known as: PLAVIX Take 1 tablet by mouth daily. DSS 100 MG Caps QTY: 30 each Refills: 0 Take 100 mg by mouth 2 (two) times daily. furosemide 40 MG tablet QTY: 3 tablet Refills: 0 Commonly known as: LASIX Take 1 tablet by mouth daily. insulin detemir 100 UNIT/ML injection QTY: 15 mL Refills: 0 Commonly known as: LEVEMIR Inject 13 Units into the skin 2 (two) times daily. * insulin lispro (human) 100 UNIT/ML injection QTY: 10 mL Refills: 0 Commonly known as: HUMALOG Inject 2-14 Units into the skin 3 (three) times daily before meals. Mealtime Correctional S leighann<70 Initiate Hypoglycemia Protocol BG: High Dose 70-119 0 Units 120-149 2 Units 150-199 3 Units 200-249 4 Units 250-299 7 Units 300-34 9 10 Units 350-399 11 Units >400 14 Units * insulin lispro (human) 100 UNIT/ML injection QTY: 10 mL Refills: 0 Commonly known as: HUMALOG Inject 5 Units into the skin 3 (three) times daily before meals. metoprolol 25 MG tablet QTY: 60 tablet Refills: 0 Commonly known as: LOPRESSOR Take 1 tablet by mouth 2 (two) times daily. Hold for systolic blood pressure less than 110 and/or heart rate less than 60 potassium chloride SA 20 MEQ tablet QTY: 3 tablet Refills: 0 Commonly known as: K-DUR,KLOR-CON Take 1 tablet by mouth daily. traMADol 50 MG tablet QTY: 30 tablet Refills: 0 Commonly known as: ULTRAM Take 2 tablets by mouth every 6 (six) hours as needed. * Notice: This list has 2 medication(s) that are the same as other medications prescribed for you. Read the directions carefully, and ask your doctor or other care provider to revie w them with you. CHANGE how you take these medications lisinopril 5 MG tablet QTY: 30 tablet Refills: 0 Commonly known as: ZESTRIL Take 1 tablet by mouth daily. What changed: - medication strength - how much to take CONTINUE taking these medications Cholecalciferol 5000 UNITS capsule QTY: 30 capsule Refills: 0 Take 5,000 Units by mouth daily. cyanocobalamin 500 MCG tablet QTY: 30 tablet Refills: 0 Commonly known as: VITAMIN B-12 Take 1 tablet by mouth daily. hydrophilic ointment QTY: 454 g Refills: 0 Apply 120 g topically daily. metFORMIN 1000 MG tablet QTY: 60 tablet Refills: 0 Commonly known as: GLUCOPHAGE Take 1 tablet by mouth 2 (two) times daily with meals. Indications: Type 2 Diabetes STOP taking these medications aspirin 81 MG tablet Replaced by: aspirin 325 MG EC tablet insulin aspart 100 UNIT/ML injection Commonly known as: NOVOLOG insulin glargine 100 UNIT/ML injection Commonly known as: LANTUS rosuvastatin 20 MG tablet Commonly known as: CRESTOR Replaced by: atorvastatin 80 MG tablet Where to Get Your Medications You can get these medications from any pharmacy Bring a paper prescription for each of these medications - aspirin 325 MG EC tablet - atorvastatin 80 MG tablet - Cholecalciferol 5000 UNITS capsule - clopidogrel 75 MG tablet - cyanocobalamin 500 MCG tablet - DSS 100 MG Caps - furosemide 40 MG tablet - hydrophilic ointment - insulin detemir 100 UNIT/ML injection - insulin lispro (human) 100 UNIT/ML injection - insulin lispro (human) 100 UNIT/ML injection - lisinopril 5 MG tablet - metFORMIN 1000 MG tablet - metoprolol 25 MG tablet - potassium chloride SA 20 MEQ tablet - traMADol 50 MG tablet Discharge took 45 minutes, to include final examination, discussion of admission, and prepa ration of prescriptions, instructions for on-going care, follow-up and documentation of disc harge summary. Alena Coto PA-C 06/22/2016 documented in this encounter Medications at Time of Discharge + + + +---------+ + + | Medication | Sig | Dispensed | Refills | Start | End Date | | | | | | Date | | + + + +---------+ + + | aspirin 81 mg EC | Take 81 mg by mouth | | 0 | | | | tablet | Daily. | | | | | + + + +---------+ + + | atorvaSTATin | Take 1 tablet by | | 0 | 06/22/20 | | | (LIPITOR) 80 MG | mouth nightly. | | | 16 | | | tablet | | | | | | + + + +---------+ + + | cholecalciferol | Take by mouth | | 0 | | | | (VITAMIN D-3) 5000 | Daily. | | | | | | units TABS | | | | | | + + + +---------+ + + | clopidogrel | Take 1 tablet by | | 0 | 06/22/20 | | | (PLAVIX) 75 mg | mouth daily. | | | 16 | | | tablet | | | | | | + + + +---------+ + + | cyanocobalamin | Take 500 mcg by | | 0 | | | | (VITAMIN B-12) 500 | mouth Daily. | | | | | | mcg tablet | | | | | | + + + +---------+ + + | hydrophilic | Apply 120 g | | 0 | | | | ointment | topically Daily. | | | | | + + + +---------+ + + | insulin aspart | Inject 22 Units | | 0 | | | | (NOVOLOG PENFILL) | under the skin 3 | | | | | | 100 units/mL | times daily (before | | | | | | injection cartridge | meals). | | | | | + + + +---------+ + + | insulin detemir | Inject 13 Units into | | 0 | 06/22/20 | | | (LEVEMIR FLEXTOUCH) | the skin 2 (two) | | | 16 | | | 100 units/mL | times daily. | | | | | | injection (pen) | | | | | | + + + +---------+ + + | insulin glargine | Inject 50 Units | | 0 | | | | (LANTUS SOLOSTAR) | under the skin 2 | | | | | | 100 units/mL | times daily. | | | | | | injection (pen) | | | | | | + + + +---------+ + + | insulin lispro | Inject 5 Units into | | 0 | 06/22/20 | | | (HUMALOG) 100 | the skin 3 (three) | | | 16 | | | units/mL injection | times daily before | | | | | | (vial) | meals. | | | | | + + + +---------+ + + | lisinopril | Take 40 mg by mouth | | 0 | | | | (PRINIVIL,ZESTRIL) | Daily. | | | | | | 40 MG tablet | | | | | | + + + +---------+ + + | metFORMIN | Take 1,000 mg by | | 0 | | | | (GLUCOPHAGE) 1000 MG | mouth 2 times daily | | | | | | tablet | (with breakfast & | | | | | | | dinner). | | | | | + + + +---------+ + + | rosuvastatin | Take 20 mg by mouth | | 0 | | | | (CRESTOR) 20 mg | nightly. | | | | | | tablet | | | | | | + + + +---------+ + + documented as of this encounter Progress Notes Conversion Transaction, Provider Unknown - 06/22/2016 2:33 PM PDTFormatting of this note m ight be different from the original. Case Management by Berta Reed RN at 06/22/161432 Author: Berta Reed RN Service: (none) Author Type: Registered Nurse Filed: 06/22/16 2785 Date of Service: 06/22/161432 Status: Signed Software Packager: Summer R Touchette, RN (Registered Nurse) 06/22/16 5437 Anticipated Discharge Plan Post Acute Care Needs Other (comment) (Natacha Collado) Plan communicated to patient/family Yes Anticipated Disposition Medicare Important Message (RABIA) Not applicable Disposition: Natacha Collado family aware and will meet at facility Transportation:Natacha vance All orders, signed AVS, and prescriptions have been faxed All DC paperwork completed Patient and family in agreement with discharge plan Medicare important message: N/A Pt is aware that his insurance only covering 7 days, CM will fax AVS to christopher at [facility] . Berta Reed onver paul Transaction, Provider Unknown - 06/22/2016 11:29 AM PDT Progress Notes by Avery Stevenson RRT at 06/22/16 1129 Author: Avery Stevenson RRT Service: -Emergency Author Type: Registered Respiratory Ther apist Filed: 06/22/16 1129 Date of Service: 06/22/161128 Status: Signed Software Packager: Avery Stevenson RRT (Registered Respiratory Therapist) [facility] Department of Respiratory Usp Oxygen Evaluation (Evaluation is valid for 48 hours once completed) Date: 06/22/2016 RT: Avery Stevenson Time: 11:29 AM Home O2 Eval at rest-Part 1 Is the patient's SpO2 88% or lower at rest & breathing room air? : No SpO2 at rest & breathing room air: 97 percent Home O2 Eval during exercise-Part 2 Is the patient's SpO2 88% or lower during exercise & breathing room air? : No SpO2 during exercise & breathing room air : 93 percent Home O2 Eval Comment Eval Comment: Patient ambulates at a slow pace with use of a 4 wheel walker, about 200ft in to eval patient stated feeling light headed and needed to sit. After 2 mins, patient resumed eval and returned to room. Patient on room air during whole eval. HOME OXYGEN PROVIDER PREFERENCE PHONE FAX *NOTE* Provider must include liter flow, route of oxygen administration, frequency of use w ith duration of need in months on the prescription AND document patient s diagnosis. OXYGEN PRN IS NOT A VALID ORDER Physician Signature: Date: Time: Thomas guerrero, Alena Mike PA-C - 06/22/2016 10:46 AM PDT Progress Notes by Alena Coto PA-C at 06/22/16 1046 Author: Alena Coto PA-C Service: Cardiac, Thoracic, and Vascular Surgery Au thor Type: Physician Filler Shaker - Certified Filed: 06/22/16 104 Date of Service: 06/22/16 104 Status: Attested Software Packager: Alena Coto PA-C (Physician Filler Shaker - Certified) Cosigner: Xavi Alvarez MD at 06/23/16 100 Attestation signed by Xavi Alvarez MD at 06/23/16 100 I have examined Tr Caballero, reviewed the notes, assessments, and/or procedures performed by Alena Mike PA-C, I concur with her documentation of Tr Caballero. Cardiothoracic Surgery Progress Note Pt: Tr Caballero AGE/SEX: 61 y.o. male : 1955 ROOM: [facility] ADMIT DATE: 06/14/2016 Hospital Day: LOS: 8 days Surgery/Procedure: 06/15/16 1. Coronary artery bypass grafting x3 (left internal mammary artery to left anterior desce nding artery, saphenous vein graft to obtuse marginal branch, saphenous vein graft to right posterior descending artery). 2. Endoscopic vein harvest. Post-Op Day: 7 Days Post-Op SUBJECTIVE: Per Dr. Morales's consult note ( ): " The patient is a 61 y/o male w/ sig nificant PMHx of IDDM, HTN, HUNTER who presented to [place] with a 4 day history of anginal s ymptoms. He was evaluated at [facility] in [place] and was diagnosed with a NSTEMI. He u nderwent cardiac angiography. Dr. Morales reviewed the films and was noted to have severe co ronary artery disease. Patient is asymptomatic. Hospital Timeline: 06/14: Admission 06/15: CABG x3, R-EVH 06/16: ICU: Extubated @0400, overnight hypoxemia/hypercarbia - BiPAP, diuresis 06/17:ICU: 4-6L NC/BiPAP, diuresis, Shields out 06/18:ICU: 3-4L NC/BiPAP, diuresis, Flomax added 06/19: ICU: 3L NC/BiPAP, diuresis, +/-tx to 4RP 06/20: 4RP: 2L NC/BiPAP, diuresis, start Plavix 06/22: discharge to [facility] Overnight ASSESSMENT/PLAN: General: Pt sitting up in chair, using IS. Cardiac: HD stable, NSR - Cont' optimized on ASA 325mg, Atrovastatin 80mg daily (takes Crestor 20 @ home), Metopr olol 12.5 mg bid, Lisinopril 5mg daily (home at 40mg) - NSTEMI: Started Plavix (06/20). - Take Down Inspector: Referral for Dr. Flores. Respiratory: On RA; encourage aggressive pulmonary toilet - hx of HUNTER: BiPAP; referral sent for pulm/sleep study after discharge. Neuro: 2-12 NC intact, moving all extremities well, following commands appropriately - cont' neuro checks Q24hr. GI: BM: x 4 (06/20) - Stict I/O, daily wts : UOP 600mL overnight, 2400mL/24hr - Edema: +3 b/l LE - Fluid overload sp cardiac surgery: cont' to watch; at pre-op weight this am; given 40mg daily x 1 today. - on Flomax 0.4mg daily. ENDO: hx of IDDM2: A1C: 8.8 - Current regiment: 13 units levermir bid, 1-7 units nightly, 5 units humalog w/ meals + high dose SSI. - Home regiment: metformin 1000mg bid, novolog 22 units TID w/ meals, Lantus 50 units bid daily. - Consult DM Educator for daily maintaince of BG < 180. Pain control:Tramadol 50mg/100mg prn panel Ambulation: - cont' increasing ambulation as tolerated/PT/OT Social: CM following for discharge needs, plan for SNF vs family assist (to be determined today). Disposition: discharge today to [facility] PROBLEM LIST Principal Problem: NSTEMI (non-ST elevation myocardial infarction) ([facility]) Active Problems: CAD (coronary artery disease), [place] coronary artery 1. Acute myocardial infarction. 2. Severe coronary artery disease. 3. Insulin-dependent diabetes mellitus. 4. Hypertension. 5. Obstructive sleep apnea. 6. Obesity. OBJECTIVE: Current weight: Patient Vitals for the past 96 hrs: Weight 06/22/16 0530 130.8 kg (288 lb 5.8 oz) 06/21/16 0342 132.3 kg (291 lb 10.7 oz) 06/20/16 0430 134.7 kg (296 lb 15.4 oz) 06/19/16 06 137.8 kg (303 lb 12.7 oz) Admission weight: Weight: 132 kg (291 lb 0.1 oz) Net fluid since admission: - 350 Vital Signs: BP 153/69 mmHg | Pulse 71 | Temp(Src) 98.2 F (36.8 C) (Oral) | Resp 20 | Ht 1.753 m (5' 9") | Wt 130.8 kg (288 lb 5.8 oz) | BMI 42.56 kg/m2 | SpO2 91% Temp: [97.6 F (36.4 C)-98.2 F (36.8 C)] 98.2 F (36.8 C) (06/22 239) BP: (126-153)/(60-73) 153/69 mmHg (06/22 853) Heart Rate: [68-75] 71 (06/22 853) Resp: [18-20] 20 (06/22 239) SpO2: [91 %-96 %] 91 % (06/21 2318) Weight: [130.8 kg (288 lb 5.8 oz)] 130.8 kg (288 lb 5.8 oz) (06/22 530) Intake/Output Summary (Last 24 hours) at 06/22/16 1046 Last data filed at 06/22/16 0900 Gross per 24 hour Intake 800 ml Output 2950 ml Net -2150 ml I/O this shift: In: - Out: 1300 [Urine:1300] 06/21 0700 - 06/22 0659 In: 920 [P.O.:920] Out: 2400 [Urine:2400] PE: GENERAL: Pt sitting in chair, A&O x3, NAD NEURO: PERRLA, EOMI; no facial asymmetry, speech normal and non pressured. Normal ROM. SKIN: Mid-sternal incision is C/D/I. L EVH incisions C/D/I. Chest tube removed incision C/ D/I. No erythema, edema/inflammation, discharge, or warmth noted around the incision site. N o rash or mottling; No evidence of skin breakdown over the occiput, scapulae, elbows, sacrum or heels. HEENT: Sclerae clear, nonicteric; Oral Mucosa moist and pink. NECK: No JVD noted, carotid upstrokes brisk without bruits. No thyromegaly. HEART: RRR w/normal S1/S2. No murmur, rub, heave, or gallop noted. LUNGS: Lungs are CTA w/o wheezing, crackles, or rhonchi. Dim bases. ABDOMEN: Soft, morbidly obese, nontender. BS active. No masses or organomegaly noted. EXTREMITIES: +2 b/l LE edema; B/L radial, dorsalis pedis, and posterior tibialis pulses mod erate. No clubbing or cyanosis noted. DATA: Scheduled Medications aspirin 325 mg Oral Nightly atorvastatin 80 mg Oral Nightly cholecalciferol 2,000 Units Oral Daily clopidogrel 75 mg Oral Daily cyanocobalamin 500 mcg Oral Daily docusate sodium 100 mg Oral BID famotidine 20 mg Oral BID Or famotidine 20 mg Intravenous BID insulin detemir 13 Units Subcutaneous BID insulin lispro (human) 1-7 Units Subcutaneous Nightly insulin lispro (human) 2-14 Units Subcutaneous TID AC insulin lispro (human) 5 Units Subcutaneous TID AC lisinopril 5 mg Oral Daily magnesium hydroxide 30 mL Oral Daily metFORMIN 1,000 mg Oral BID WC metoprolol 25 mg Oral BID tamsulosin 0.4 mg Oral Daily Continuous Infusions amiodarone infusion PRN Medications acetaminophen OR acetaminophen, albuterol, aluminum-magnesium hydroxide-simethicone, am iodarone IV bolus, amiodarone infusion, bisacodyl, dextrose, dextrose, dextrose, hydrALAZINE , magnesium sulfate OR magnesium sulfate OR magnesium sulfate, mineral oil-hydrophil ic petrolatum, ondansetron, polyethylene glycol, potassium OR potassium OR potassium OR potassium chloride OR potassium chloride OR potassium chloride, sodium chlor chelsey, saline lock IV - prn tolerating PO fluid AND sodium chloride, sodium phosphate, tra MADol OR traMADol HOME MEDS: Prior to Admission medications Medication Sig Start Date End Date Taking? Authorizing Provider aspirin 81 MG tablet Take 81 mg by mouth daily. Yes Historical Provider Cholecalciferol 5000 UNITS capsule Take 5,000 Units by mouth daily. Yes Historical Provid er cyanocobalamin (VITAMIN B-12) 500 MCG tablet Take 500 mcg by mouth daily. Yes Historical Provider hydrophilic ointment Apply 120 g topically daily. Yes Historical Provider insulin aspart (NOVOLOG) 100 UNIT/ML injection Inject 22 Units into the skin 3 (three) time s daily before meals. Yes Historical Provider insulin glargine (LANTUS) 100 UNIT/ML injection Inject 50 Units into the skin 2 (two) times daily. Indications: Type 2 Diabetes Yes Historical Provider lisinopril (ZESTRIL) 40 MG tablet Take 40 mg by mouth daily. Yes Historical Provider metFORMIN (GLUCOPHAGE) 1000 MG tablet Take 1,000 mg by mouth 2 (two) times daily with meals . Indications: Type 2 Diabetes Yes Historical Provider rosuvastatin (CRESTOR) 20 MG tablet Take 20 mg by mouth nightly. Yes Historical Provider LABS: Recent Labs Lab 06/21/1633906/20/1641006/19/16 0601 WBC 8.93 7.45 7.84 HGB 8.1* 7.8* 7.7* HCT 24.1* 24.0* 23.6* PLT 249 203 170 NEUTOPHILPCT 60.90 62.97 69.55 MONOPCT 10.39 13.38 10.86 Recent Labs Lab 06/22/1642706/21/1633906/20/16410 NA 140 141 139 K 4.4 4.2 4.6 CL 104 104 103 CO2 30 32 32 BUN 30* 38* 43* CREATININE 0.8 0.9 0.9 Phosphorus: No results found for: PHOS Invalid input(s): LABALBU Recent Labs Lab 06/22/1642706/21/1633906/20/16410 MG 2.1 2.3 2.5* Current Labs: Last 3 Troponin: No results found for: TROPONINI CPK: No results found for: CKTOTAL CKMB: No results found for: CKMB HgBA1c: Lab Results Component Value Date HGBA1C 8.8* 06/16/2016 LABGLYC 206 06/16/2016 TSH: No results found for: TSH, TSHNEO IMAGIN/26: CXR 2 View: FINDINGS:Enlarged cardiopericardial silhouette, status post median sternotomy and CABG. Low lung volumes. Mild interstitial edema. Left basilar subsegmental atelectasis. Sma ll left pleural effusion and/or pleural thickening. Median sternotomy wires are intact and a ligned. No pneumothorax. IMPRESSION: 1. Similar cardiomegaly, status post median sternotomy and CABG. Mild interstitial edema . Left basilar subsegmental atelectasis. 2. Possible small left pleural effusion and/or pleural thickening. No pneumothorax. Greatly appreciate the excellent care of the 4RP team for this patient. The patient has been seen and the plan discussed with the attending provider, Dr. Antonio Coto PA-C 06/22/2016 10:46 AM onversion Transaction, Provider Unknown - 06/22/2016 9:49 AM PDTFormatting of this note might be dif ferent from the original. Therapy Progress Note by John Freire PT at 06/22/16 0973 Author: John Freire PT Service: (none) Author Type: Physical Therapist Filed: 06/22/16 5326 Date of Service: 06/22/16948 Status: Addendum Software Packager: John Freire PT (Physical Therapist) Related Notes: Original Note by John Freire PT (Physical Therapist) filed at 06/22 8055 06/22/1633 PT Last Visit PT Received On 06/22/16 Reason for Treatment Cardiac Requires PT Follow Up Yes Follow up PT Only? No Assistance Required 1 person Rental Sales Agent Needed No Precautions Cardiac Precautions Sternal Other Precautions fall risk Other Comments Comments Patient sleeping in chair upon PT arrival. Pt reports 2/10 local pain in chest. Vi tals at rest in sitting: HR 72, BP 165/77 SpO2 92% on RA. Pt performed ISx5 w/ max 750. Pt r eports he used to get to 1000ml. Patient tolerated increased ambulating distance. As he fati gued his trunk sway to the left inceaseed. Patient required [address] through. Check O2 when he returned. SpO2 was at 85% w/ room air. Instructed pt to breath in through the nose and out the mouth. O2 levels increased to 91%. Helped patient to restroom. Patient performed a on the tinetti. Indicating a moderate fall risk. Vitals post activity in sitting: HR 73, BP 162/74, SpO2 93% on RA. Call light in reach and informed RN of sats. Cognition Overall Cognitive Status WFL Orientation Level Oriented Transfers Sit to/from Stand Minimal assist (steadying/contact guard) Mobility Ambulation Assistance Minimal assist Maximal Ambulation Distance (feet) 150x2 Total Ambulation Distance (feet) 300 Distance limited by? Patient's ability Pattern Decreased michelle;Foot drop right;Wide base (trunk lean to left) Assistive Device Walker 4 wheeled Balance Balance Yes Standardized Test Tinetti Performance Oriented Mobility Assessment Activity Tolerance Activity Tolerance Patient limited by shortness of breath (SOB);Patient limited by fatigue Nurse Made Aware RN Sosa Safety Devices Safety Devices in Place Yes Type of Devices (call light in reach) Plan Treatment/Interventions Continue per Primary PT POC Progress Progressing toward goals Recommendation Recommendations SNF PT Ready for Discharge Yes Note was created by student physical therapist and co-signed by licensed physical therapist . Student therapist also educationally participated in therapy session under the supervision of the licensed therapist. The patient approved of the student's role in care. onver paul Transaction, Provider Unknown - 06/22/2016 7:28 AM PDT Therapy Progress Note by EZ De Anda at 06/22/16727 Author: EZ De Anda Service: (none) Author Type: Occupational Therapy Celio aldrich Filed: 06/22/16 1051 Date of Service: 06/22/16727 Status: Signed Software Packager: EZ De Anda (Diamond Blender) 06/22/16 0728 OT Last Visit OT Received On 06/22/16 Reason for Treatment Cardiac Requires OT Follow Up Yes Assistance Required 1 person Rental Sales Agent Needed No Family/Caregiver Present Yes Precautions Cardiac Precautions Sternal Other Precautions fall risk Other Comments Comments pt seated in recliner chair upon SHAHAB arrival. pt agreeable to participate in OT at this time. Emphasis on tx session to inc overall ind during daily tasks while maintaining p recautions. At this time pt requesting to discuss self care handouts At end of session pt s eated in recliner chair no needs indicated at this time. Grooming Grooming Comments educated pt on completing grooming tasks while maintaining sternal precau tions. UE Bathing UE Bathing Comments Educated on UE/LE bathing while maintaining sternal precautions w/ use of AE/compensatory tech pt state understanding UE Dressing UE Dressing Comments Educated on UE/LE dressing task with use of AE while maintaining preca utions. Educated on looser fitted clothing. pt state understanding Toileting Toileting Comments Educated on tech for completing personal hygiene task while maintaining precautions. per pt report has been requiring assistance d/t reaching discrepancy. Educated on use of toilet aide to assist with task. pt state understanding Kitchen Mobility Kitchen Mobility Comments Educated on appropriate reaching distance when retrieving items m aking sure reaching infront of self. pt state understanding Activity Tolerance Activity Tolerance Patient tolerated treatment well;Patient limited by fatigue Safety Devices Safety Devices in Place Yes Type of Devices Call lite in place Plan Treatment Interventions (per OT POC) Progress Progressing toward goals Recommendation Recommendation SNF Equipment Recommended Tennis Centre Manager;Sock aid;Sponge long handled Education Completed: Education Topic: self care-sternal precautions Completed with: Patient, Completed by: Verbal Education, Written Material, Demonstration Response to Education: Stated Understanding, Reinforcement Necessary for Education Under standing Occupational Therapy Plan: Continue OT treatment per POC Met with supervising OTR/L on this date, discussed and confirmed that POC is still appropri ate and verified recommendations onver paul Transaction, Provider Unknown - 06/21/2016 5:17 PM PDT Therapy Progress Note by John Freire, PT at 06/21/161716 Author: John Freire PT Service: (none) Author Type: Physical Therapist Filed: 06/21/16 7093 Date of Service: 06/21/161716 Status: Signed Software Packager: John Freire PT (Physical Therapist) 06/21/161716 PT Last Visit PT Received On 06/21/16 Reason for Treatment Cardiac Requires PT Follow Up Yes Follow up PT Only? No Assistance Required 1 person Rental Sales Agent Needed No Precautions Cardiac Precautions Sternal Other Precautions Fall Risk Other Comments Comments Pt resting in the recliner upon PT arrival; fatigued but very participatory. Amaya s pain at rest. Reports feeling well after receiving a shower earlier. Now on roomair at res t, with SpO2 between 91-93%. SpO2 maintained in the 90s with activity on roomair. Pt improvi ng his transfer strength from the recliner, but when attempting to arise from a low surface chair in the hallway he needed multiple attempts and mod A from PT. Pt did indicating noted dyspnea and dizziness with activity, requiring a seated rest break for safety. No new compla ints after activity, all dizziness cleared once in sitting. Vitals at rest in sitting: HR 72 , BP 146/73, SpO2 93% RA. Vitals after activity in sitting: HR 79, BP 149/76, SpO2 94% RA. Cognition Overall Cognitive Status WFL Orientation Level Oriented Bed Mobility Scooting Moderate assist Transfers Sit to/from Stand Minimal assist (steadying/contact guard);Moderate assist (to arise OR low er) Mobility Ambulation Assistance Minimal assist Maximal Ambulation Distance (feet) 125, 100 Total Ambulation Distance (feet) 225 ft Distance limited by? Patient's ability Pattern Decreased michelle;Right swing foot doesn't pass stance foot;Left swing foot doesn't pass stance foot Assistive Device Walker 4 wheeled Modalities Other Therapy Ed on sternal precautions; upright posture with mobility and breathing techni que to reduce dyspnea Activity Tolerance Activity Tolerance Patient limited by fatigue Nurse Made Aware RN present at end of session Safety Devices Safety Devices in Place (call light in reach; RN aware) Restraints Initially in Place No Plan Treatment/Interventions Continue per Primary PT POC Progress Progressing toward goals Recommendation Recommendations SNF PT Ready for Discharge Yes onver paul Transaction, Provider Unknown - 06/21/2016 1:00 PM PDT Progress Notes by Yulissa Mahmood RD at 06/21/16 1300 Author: Yulissa Mahmood RD Service: (none) Author Type: Registered Dietitian Filed: 06/21/16 1300 Date of Service: 06/21/16 1300 Status: Signed Software Packager: Yulissa Mahmood RD (Clinical Rehabilitation Coordinator) 06/21/16 1150 Subjective Timepoint Follow up Pt c/o POD 6 s/p CABG x3. Possibilty pt can go home with assist from instead of SNF. P t was in room and willing to receive education. Diet Experience Previous Diet / Nutrition Education / Counseling diabetes educator saw pt. Pt reported diab etes edu in the past and felt comfortable with the diet. Self-selected diet(s) followed Pt states he avoids carbs like bread and pasta and was not h appy with the diabetic diet given here. He states he eats meat and vegetables at home. 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 Per his sons report he does make daija ws with vegetables from his garden. Fluid / Beverage Intake Oral Fluids Amount 1.5 L FR Liquid Meal Replacement or Supplement Boost BG control TID ordered. Food Intake Amount of Food Pt states his appetite has improved and he ate 100% of his breakfast burrito and small cup of fruit this AM. Type of Food / Meals Cardiac diabetic 2400 kcal 1.5 L FR Micronutrient Intake Vitamin Intake D;B12 Food and Nutrition Knowledge Area(s) and Level of Knowledge Reviewed the TLC diet focusing on increasing fiber and omega 3 intake while decreasing saturated fat and sodium intake. Discussed increased calorie and protein needs post-operatively and reviewed the importance of maintaining BG control. Pt exp ressed understanding. Written materials provided. Nutrition-Focused Physical Findings Overall Appearance Somnolent but pleasant Extremities, Muscles and Bones BLE 3+, BUE non-pitting, perineal dependent edema. Skin Incisions on chest Anthropometrics Weight change Wt up 1.3 kg since admit. Pt is 3.7 L fluid positive and lasix is ordered. Biochemical data, medical tests, and procedures reviewed Biochemical data, medical tests, and procedures reviewed BGs in the 100s. Humalog and Levem ir ordered. BUN 38 (H)-renal insufficiency. Recommendations Recommended energy needs Continue diabetic, cardiac diet with fluid mgmt per MD. Recommend eliminating kcal restriction as it is less than projected needs of post-op CABG. Continue masters pplements and encourage intake of foods high in protein to promote wound healing. Will nolan nue to monitor as indicated. Nutritional Risk Nutritional risk Low / moderate Follow up date 06/27/[address] onver paul Transaction, Provider Unknown - 06/21/2016 12:04 PM PDT Case Management by Berta Reed RN at 06/21/16 1204 Author: Berta Reed RN Service: (none) Author Type: Registered Nurse Filed: 06/21/16 1427 Date of Service: 06/21/16 1204 Status: Addendum Software Packager: Berta Reed RN (Registered Nurse) Related Notes: Original Note by Berta Reed RN (Registered Nurse) filed at 1215 CM spoke to Christopher from [facility] and she advised that pt has been approved for 7 days SNF. Christopher also advised that she has spoken to [facility] and they can accept pt, this CM will contact regarding transportation. CM will need to fax Christopher a copy of the AVS and med list on d/c. LM with Tyshawn at [facility] [phone]. 06/21/16 1213 Tyshawn from [facility] called back and advised that they can transport pt, if pt cannot be weaned off O2, they can also provide an O2 tank. Tyshawn will arrange transport time on day of d/c. 06/21/16 1400 Pt requested that this CM fax doctors note to his employer, CM faxed per pt's request. onver paul Transaction, Provider Unknown - 06/21/2016 9:07 AM PDT Therapy Progress Note by John Freire PT at 06/21/16 0907 Author: John Freire PT Service: (none) Author Type: Physical Therapist Filed: 06/21/16 1148 Date of Service: 06/21/16906 Status: Signed Software Packager: John Freire, PT (Physical Therapist) 06/21/16906 PT Last Visit PT Received On 06/21/16 Reason for Treatment Cardiac Requires PT Follow Up Yes Follow up PT Only? No Assistance Required 1 person Rental Sales Agent Needed No Precautions Cardiac Precautions Sternal Other Precautions Fall Risk Other Comments Comments Pt in the recliner upon PT arrival; indicating pain and fatigue but with discussio n/education pt was agreeable and participatory. Vitals at rest in sitting: HR 75, BP 123/59, SpO2 95% w/ 2L. Reports having an episode of dizziness earlier this AM when he was up w/ st aff. Indicates 5/10 pain at rest. Frequent productive cough observed this AM. RN present t o provide medication. Vitals after activity in sitting: HR 74, BP 129/69, SpO2 94% w/ 2L. P t did indicate mild dizziness with activity that subsided with seated rest. Pt assisted into BR during session, PT assisting with pericare. Discussed DC planning, patient indicating th at he would prefer a short term subacute rehab prior to returning home- which may be appropr iate considering his need for assistance with mobility and limited activity tolerance. Agree able to remaining in the recliner after activity with ed on importance of upright positionin g. Denied pain after activity. Cognition Overall Cognitive Status WFL Orientation Level Oriented Transfers Sit to/from Stand Minimal assist (steadying/contact guard);Verbal instruction Mobility Ambulation Assistance Minimal assist Maximal Ambulation Distance (feet) 100x2 Total Ambulation Distance (feet) 200 ft Distance limited by? Patient's ability Pattern Decreased michelle;Right swing foot doesn't pass stance foot;Left swing foot doesn't pass stance foot Assistive Device Walker 4 wheeled Modalities Other Therapy Ed on sternal precautions, ed on safe DC planning, ed on continued use of IS to promote pulmonary function Activity Tolerance Activity Tolerance Patient limited by fatigue Nurse Made Aware STEPHANY Garcia Safety Devices Safety Devices in Place (call light in reach; RN aware) Restraints Initially in Place No Plan Treatment/Interventions Continue per Primary PT POC Progress Progressing toward goals Recommendation Recommendations SNF Recommendation Comments pt. continues to progress, SNF vs. home with assist, pt. has good f amily support as is there at every session and willing to assist. If pt continues to im porve functional mobility and is trained pt. potentially could go home with assistance Alena Green PA-C - 06/21/2016 8:13 AM PDT Progress Notes by Alena Coto PA-C at 06/21/16812 Author: Alena Coto PA-C Service: Cardiac, Thoracic, and Vascular Surgery [place] Type: Physician Filler Shaker - Certified Filed: 06/21/1635 Date of Service: 06/21/16812 Status: Attested Software Packager: Alena Coto PA-C (Physician Filler Shaker - Certified) Cosigner: Xavi Alvarez MD at 06/21/161610 Attestation signed by Xavi Alvarez MD at 06/21/161610 I have examined rT Caballero, reviewed the notes, assessments, and/or procedures performed by Alena Mike PA-C, I concur with her documentation of Trsavannah Caballero. Cardiothoracic Surgery Progress Note Pt: Tr Caballero AGE/SEX: 61 y.o. male : 1955 ROOM: [facility]4466-1 ADMIT DATE: 06/14/2016 Hospital Day: LOS: 7 days Surgery/Procedure: 06/15/16 1. Coronary artery bypass grafting x3 (left internal mammary artery to left anterior desce nding artery, saphenous vein graft to obtuse marginal branch, saphenous vein graft to right posterior descending artery). 2. Endoscopic vein harvest. Post-Op Day: 6 Days Post-Op SUBJECTIVE: Per Dr. Morales's consult note ( ): " The patient is a 61 y/o male w/ sig nificant PMHx of IDDM, HTN, HUNTER who presented to [facility] with a 4 day history of anginal s ymptoms. He was evaluated at [facility] in [place] and was diagnosed with a NSTEMI. He u nderwent cardiac angiography. Dr. Morales reviewed the films and was noted to have severe co ronary artery disease. Patient is asymptomatic. Hospital Timeline: 06/14: Admission 06/15: CABG x3, R-[facility] 06/16: ICU: Extubated @0400, overnight hypoxemia/hypercarbia - BiPAP, diuresis 06/17:ICU: 4-6L NC/BiPAP, diuresis, Shields out 06/18:ICU: 3-4L NC/BiPAP, diuresis, Flomax added 06/19: ICU: 3L NC/BiPAP, diuresis, +/-tx to 4RP 06/20: 4RP: 2L NC/BiPAP, diuresis, start Plavix 06/21: Overnight ASSESSMENT/PLAN: General: Pt sitting up in chair, using IS. Cardiac: HD stable, NSR - Cont' optimized on ASA 325mg, Atrovastatin 80mg daily (takes Crestor 20 @ home), Metopr olol 12.5 mg bid, Lisinopril 5mg daily (home at 40mg) - NSTEMI: Started Plavix (06/20). - Take Down Inspector: Respiratory: On 2L NC, no SOB; desat's to 80-85% on RA; wean O2 as tolerated - maintain sa t >88%; encourage aggressive pulmonary toilet - hx of HUNTER: BiPAP may need referral for pulm/sleep study after discharge. Neuro: 2-12 NC intact, moving all extremities well, following commands appropriately - cont' neuro checks Q24hr. GI: BM: x 4 (06/20) - Stict I/O, daily wts : UOP 600mL overnight, 1050mL/24hr - Edema: +3 b/l LE - Fluid overload sp cardiac surgery: cont' to watch; at pre-op weight this am; on fluid r estriction 1.5L/24hr - on Flomax 0.4mg daily. ENDO: hx of IDDM2: A1C: 8.8 - Current regiment: 13 units levermir bid, 1-7 units nightly, 5 units humalog w/ meals + high dose SSI. - Home regiment: metformin 1000mg bid, novolog 22 units TID w/ meals, Lantus 50 units bid daily. - Consult DM Educator for daily maintaince of BG < 180. Pain control:Tramadol 50mg/100mg prn panel Ambulation: - cont' increasing ambulation as tolerated/PT/OT Social: CM following for discharge needs, plan for SNF vs family assist (to be determined today). Disposition: 4RP for now; discharge likely tomorrow if everything lined up. PROBLEM LIST Principal Problem: NSTEMI (non-ST elevation myocardial infarction) ([facility]) Active Problems: CAD (coronary artery disease), [place] coronary artery 1. Acute myocardial infarction. 2. Severe coronary artery disease. 3. Insulin-dependent diabetes mellitus. 4. Hypertension. 5. Obstructive sleep apnea. 6. Obesity. OBJECTIVE: Current weight: Patient Vitals for the past 96 hrs: Weight 06/21/16 034 132.3 kg (291 lb 10.7 oz) 06/20/16 043 134.7 kg (296 lb 15.4 oz) 06/19/16 06 137.8 kg (303 lb 12.7 oz) Admission weight: Weight: 132 kg (291 lb 0.1 oz) Net fluid since admission: - 350 Vital Signs: BP 123/59 mmHg | Pulse 69 | Temp(Src) 98.2 F (36.8 C) (Oral) | Resp 18 | Ht 1.753 m (5' 9") | Wt 132.3 kg (291 lb 10.7 oz) | BMI 43.05 kg/m2 | SpO2 95% Temp: [97.6 F (36.4 C)-98.6 F (37 C)] 98.2 F (36.8 C) (06/21 809) BP: (115-156)/(59-74) 123/59 mmHg (06/21 809) Heart Rate: [66-77] 69 (06/21 809) Resp: [18-22] 18 (06/21 809) SpO2: [90 %-96 %] 95 % (06/21 809) Weight: [132.3 kg (291 lb 10.7 oz)] 132.3 kg (291 lb 10.7 oz) (06/21 342) Intake/Output Summary (Last 24 hours) at 06/21/16812 Last data filed at 06/21/16809 Gross per 24 hour Intake 620 ml Output 1600 ml Net -980 ml I/O this shift: In: 120 [P.O.:120] Out: 550 [Urine:550] 06/20 0700 - 06/21 0659 In: 700 [P.O.:700] Out: 1050 [Urine:1050] PE: GENERAL: Pt sitting in chair, A&O x3, NAD NEURO: PERRLA, EOMI; no facial asymmetry, speech normal and non pressured. Normal ROM. SKIN: Mid-sternal incision is C/D/I. L EVH incisions C/D/I. Chest tube removed incision C/ D/I. No erythema, edema/inflammation, discharge, or warmth noted around the incision site. N o rash or mottling; No evidence of skin breakdown over the occiput, scapulae, elbows, sacrum or heels. HEENT: Sclerae clear, nonicteric; Oral Mucosa moist and pink. NECK: No JVD noted, carotid upstrokes brisk without bruits. No thyromegaly. HEART: RRR w/normal S1/S2. No murmur, rub, heave, or gallop noted. LUNGS: Lungs are CTA w/o wheezing, crackles, or rhonchi. Dim bases. ABDOMEN: Soft, morbidly obese, nontender. BS active. No masses or organomegaly noted. EXTREMITIES: +3 b/l LE edema; B/L radial, dorsalis pedis, and posterior tibialis pulses mod erate. No clubbing or cyanosis noted. DATA: Scheduled Medications aspirin 325 mg Oral Nightly atorvastatin 80 mg Oral Nightly cholecalciferol 2,000 Units Oral Daily clopidogrel 75 mg Oral Daily cyanocobalamin 500 mcg Oral Daily docusate sodium 100 mg Oral BID famotidine 20 mg Oral BID Or famotidine 20 mg Intravenous BID insulin detemir 13 Units Subcutaneous BID insulin lispro (human) 1-7 Units Subcutaneous Nightly insulin lispro (human) 2-14 Units Subcutaneous TID AC insulin lispro (human) 5 Units Subcutaneous TID AC lisinopril 5 mg Oral Daily magnesium hydroxide 30 mL Oral Daily metFORMIN 1,000 mg Oral BID WC metoprolol 25 mg Oral BID tamsulosin 0.4 mg Oral Daily Continuous Infusions amiodarone infusion PRN Medications acetaminophen OR acetaminophen, albuterol, aluminum-magnesium hydroxide-simethicone, am iodarone IV bolus, amiodarone infusion, bisacodyl, dextrose, dextrose, dextrose, hydrALAZINE , magnesium sulfate OR magnesium sulfate OR magnesium sulfate, mineral oil-hydrophil ic petrolatum, ondansetron, polyethylene glycol, potassium OR potassium OR potassium OR potassium chloride OR potassium chloride OR potassium chloride, sodium chlor chelsey, saline lock IV - prn tolerating PO fluid AND sodium chloride, sodium phosphate, tra MADol OR traMADol HOME MEDS: Prior to Admission medications Medication Sig Start Date End Date Taking? Authorizing Provider aspirin 81 MG tablet Take 81 mg by mouth daily. Yes Historical Provider Cholecalciferol 5000 UNITS capsule Take 5,000 Units by mouth daily. Yes Historical Provid er cyanocobalamin (VITAMIN B-12) 500 MCG tablet Take 500 mcg by mouth daily. Yes Historical Provider hydrophilic ointment Apply 120 g topically daily. Yes Historical Provider insulin aspart (NOVOLOG) 100 UNIT/ML injection Inject 22 Units into the skin 3 (three) time s daily before meals. Yes Historical Provider insulin glargine (LANTUS) 100 UNIT/ML injection Inject 50 Units into the skin 2 (two) times daily. Indications: Type 2 Diabetes Yes Historical Provider lisinopril (ZESTRIL) 40 MG tablet Take 40 mg by mouth daily. Yes Historical Provider metFORMIN (GLUCOPHAGE) 1000 MG tablet Take 1,000 mg by mouth 2 (two) times daily with meals . Indications: Type 2 Diabetes Yes Historical Provider rosuvastatin (CRESTOR) 20 MG tablet Take 20 mg by mouth nightly. Yes Historical Provider LABS: Recent Labs Lab 06/21/1633906/20/1641006/19/16600 WBC 8.93 7.45 7.84 HGB 8.1* 7.8* 7.7* HCT 24.1* 24.0* 23.6* PLT 249 203 170 NEUTOPHILPCT 60.90 62.97 69.55 MONOPCT 10.39 13.38 10.86 Recent Labs Lab 06/21/1633906/20/1641006/19/1601 06/15/16 0721 NA 141 139 138 < > 137 K 4.2 4.6 5.0* < > 4.5 CL 104 103 104 < > 100 CO2 32 32 29 < > 31 BUN 38* 43* 48* < > 30* CREATININE 0.9 0.9 0.9 < > 0.93 PROT -- -- -- -- 6.9 BILITOT -- -- -- -- 0.5 ALT -- -- -- -- 23 AST -- -- -- -- 13 < > = values in this interval not displayed. Phosphorus: No results found for: PHOS Invalid input(s): LABALBU Recent Labs Lab 06/21/16 0340 06/20/16 0411 06/19/16 0601 MG 2.3 2.5* 2.8* Current Labs: Last 3 Troponin: No results found for: TROPONINI CPK: No results found for: CKTOTAL CKMB: No results found for: CKMB HgBA1c: Lab Results Component Value Date HGBA1C 8.8* 06/16/2016 LABGLYC 206 06/16/2016 TSH: No results found for: TSH, TSHNEO IMAGIN/26: CXR 2 View: FINDINGS:Enlarged cardiopericardial silhouette, status post median sternotomy and CABG. Low lung volumes. Mild interstitial edema. Left basilar subsegmental atelectasis. Sma ll left pleural effusion and/or pleural thickening. Median sternotomy wires are intact and a ligned. No pneumothorax. IMPRESSION: 1. Similar cardiomegaly, status post median sternotomy and CABG. Mild interstitial edema . Left basilar subsegmental atelectasis. 2. Possible small left pleural effusion and/or pleural thickening. No pneumothorax. Greatly appreciate the excellent care of the 4RP team for this patient. The patient has been seen and the plan discussed with the attending provider, Dr. Antonio Coto PA-C 06/21/2016 8:13 AM onversion Transaction, Provider Unknown - 06/21/2016 4:42 AM PDTFormatting of this note might be dif ferent from the original. Progress Notes by Theodore Moreira RN at 06/21/16 7626 Author: Theodore Moreira RN Service: (none) Author Type: Registered Nurse Filed: 06/21/16 0450 Date of Service: 06/21/16 1252 Status: Addendum Software Packager: Theodore Moreira RN (Registered Nurse) Related Notes: Original Note by Theodore Moreira RN (Registered Nurse) filed at 06/21/16 5316 At 0400 when getting pt up to weigh and ambulate, pt became dizzy and diaphoretic. Pt was t aken back to room and assisted in to recliner. Vitals were checked, BGL 117, BP 120's, HR 70 's however SpO2 was low with quality reading at 86% RA. Pt has been maintaining suitable O2 sats while resting however does appear to require small amount of O2 with exertion. 2L via N C was added and O2 improved to 94%. Will continue to monitor the O2 sats and maintain the masters pplemental O2 as needed. Pt assisted with IS and DB&C, Pt reaching 750 on IS. Educated pt on the importance of using the IS aggressively and DB&C often. Pt stated understanding and oliver sing will continue to push aggressive pulmonary toilet. onver paul Transaction, Provider Unknown - 06/20/2016 3:48 PM PDT Therapy Progress Note by GRANT Cifuentes at 06/20/16 7735 Author: GRANT Cifuentes Service: (none) Author Type: Occupational Therapist Filed: 06/20/16 1549 Date of Service: 06/20/16 1540 Status: Signed Software Packager: GRANT Cifuentes (Occupational Therapist) 06/20/16 1524 OT Last Visit OT Received On 06/20/16 Requires OT Follow Up Yes Assistance Required 1 person Rental Sales Agent Needed No Family/Caregiver Present Yes Precautions Cardiac Precautions Sternal Other Precautions fall risk Other Comments Comments Pt just completing walk with PT when OT arrived for session. Pt is off of O2 at t his time. HR post activity was 81, dropped down to 76 within a few minutes after sitting. Reviewed precautions and ADL's with pt and spouse who was present in the room. Pt still nee ding some reminders for precautions during ADL's. Able to complete self feeding task and re call precautions but continues to need work on remembering precautions during actual ADL com pletion. Feeding Feeding Level of Assistance Modified independent Feeding Where Assessed (bedside chair) Feeding Comments Assist to open containers, pt self admits he would happily take more fluid s than he is allowed. Therapeutic Exercise - ROM ROM Yes (Reviewed ROM w/in precaut. w/ pt and encouragement to compl.) Plan Treatment Interventions (Per OT POC) Progress Progressing toward goals Recommendation Recommendation SNF Equipment Recommended Other (comment) (defer to SNF) OT Ready for Discharge Yes onver paul Transaction, Provider Unknown - 06/20/2016 3:16 PM PDT Case Management by Berta Reed RN at 06/20/16 151 Author: Berta Reed RN Service: (none) Author Type: Registered Nurse Filed: 06/20/16 1519 Date of Service: 06/20/161515 Status: Signed Software Packager: Berta Reed RN (Registered Nurse) CM received a message from Brandy at [facility] [employer], she is the CM assigned to pt's case. Per pt's with this insurance do not have SNF care as an op tion she will need to review pt's clinical notes to determine if pt has a need. CM faxed Christopher layton will contact this CM tomorrow. Christopher [phone] onver paul Transaction, Provider Unknown - 06/20/2016 3:01 PM PDT Therapy Progress Note by Fracisco Ying PT at 06/20/16 1501 Author: Fracisco Ying PT Service: (none) Author Type: Physical Therapist Filed: 06/20/16 5758 Date of Service: 06/20/16 1501 Status: Signed Software Packager: Fracisco Ying PT (Physical Therapist) 06/20/16 1501 PT Last Visit PT Received On 06/20/16 (should be filed at 1505) Reason for Treatment Cardiac Requires PT Follow Up Yes Follow up PT Only? No Assistance Required 1 person Precautions Cardiac Precautions Sternal Other Precautions fall risk Other Comments Comments pt. supine in bed and agreeable to PT. Reviewed sternal precautions and pt. got 8 0% without prompts. supine to sit Max A, sit to stand Mario Alberto, pt. ambulated 200' with 4WW and Min A. pt. fatigued this afternoon and doesn't want to ambulate further. pt. sitting in ch air at end of session with spouse present and OT entering room. Cognition Overall Cognitive Status WFL Orientation Level Oriented Bed Mobility Supine to Sit Max assist (BLEs OOB & trunk to upright) Scooting Moderate assist Transfers Sit to/from Stand Minimal assist (steadying/contact guard) Mobility Ambulation Assistance Minimal assist Maximal Ambulation Distance (feet) 200 Total Ambulation Distance (feet) 200 Distance limited by? Patient's ability Pattern Alternating;Right swing foot passes stance foot;Left swing foot passes stance foot Assistive Device Walker 4 wheeled Modalities Modalities Other therapy Other Therapy cont. ed. on sternal precautions Activity Tolerance Activity Tolerance Patient limited by fatigue;Patient limited by pain Nurse Made Aware yes Safety Devices Safety Devices in Place (call light in reach) Restraints Initially in Place No Plan Treatment/Interventions Continue per Primary PT POC Progress Progressing toward goals Recommendation Recommendations SNF Barriers to Discharge Physical Deficits Impacting Functional [place];Self-care Deficit s Impacting Functional [place];Pain Recommendation Comments pt. continues to progress, SNF vs. home with assist, pt. has good f amily support as is there at every session and willing to assist. If pt continues to i mporve functional mobility and is trained pt. potentially could go home with assistance onver paul Castro Provider Unknown - 06/20/2016 2:25 PM PDT Therapy Progress Note by LESLIE Lomeli at 06/20/161424 Author: LESLIE Lomeli Service: (none) Author Type: Massage Therapist Filed: 06/20/161424 Date of Service: 06/20/161424 Status: Signed Software Packager: LESLIE Lomeli (Massage Therapist) 06/20/16 1292 Massage Therapy Interventions Locations Back;Neck;Shoulder Massage Therapy Technique Effleurage;Petrissage;Grenadian massage Response to treatment Decreased pain;Increase ROM;Decreased muscle tension onver paul Castro, Provider Unknown - 06/20/2016 7:55 AM PDT Therapy Progress Note by Fracisco Ying, PT at 06/20/16754 Author: Fracisco Ying PT Service: (none) Author Type: Physical Therapist Filed: 06/20/1635 Date of Service: 06/20/16754 Status: Signed Software Packager: Fracisco Ying PT (Physical Therapist) 06/20/16754 PT Last Visit PT Received On 06/20/16 Reason for Treatment Cardiac (CABG x 3) Requires PT Follow Up Yes Follow up PT Only? No Assistance Required 2 person Precautions Cardiac Precautions Sternal Other Precautions fall risk Other Comments Comments pt. sitting in recliner and agreeable to PT. Reviewed sternal precautions and pt. is compliant with them. sit to stand Min A, pt. ambulated 500' with one rest break with FW W and Min A. Discussed with pt. about slowing michelle down (pt. tends to sterling to get sessio n done) with pt. slowing down was able to go much further then yesterday. pt. sitting in re cliner at end of session with call light in reach. Cognition Overall Cognitive Status WFL Orientation Level Oriented Transfers Sit to/from Stand Minimal assist (steadying/contact guard) Mobility Ambulation Assistance Minimal assist Maximal Ambulation Distance (feet) 350 Total Ambulation Distance (feet) 500 Distance limited by? Patient's ability Pattern Right swing foot passes stance foot;Left swing foot passes stance foot;Alternating Assistive Device Walker front wheeled Modalities Modalities Other therapy Other Therapy cont. ed on sternal precautions Activity Tolerance Activity Tolerance Patient limited by fatigue Nurse Made Aware yes Safety Devices Safety Devices in Place (call light in reach, spouse in room) Restraints Initially in Place No Plan Treatment/Interventions Continue per Primary PT POC Progress Progressing toward goals Recommendation Recommendations SNF Barriers to Discharge Physical Deficits Impacting Functional [place];Self-care Deficit s Impacting Functional [place];Pain Lila Barron ARNP - 06/20/2016 5:46 AM PDTFormatting of this note might be differ ent from the original. Progress Notes by ASHU Altamirano at 06/20/16545 Author: ASHU Altamirano Service: Cardiac, Thoracic, and Vascular Surgery [place] Type: Advanced Registered Nurse Practitioner Filed: 06/20/16 1435 Date of Service: 06/20/16545 Status: Attested Software Packager: ASHU Altamirano (Advanced Registered Nurse Practitioner) Cosigner: Xavi Alvarez MD at 06/21/161611 Attestation signed by Xavi Alvarez MD at 06/21/161611 I have examined Tr Caballero, reviewed the notes, assessments, and/or procedures performed by ASHU Herman, I concur with her documentation of Tr Caballero. - [facility] Cardiothoracic Surgery Progress Note Date/Time:06/20/2016 6:15 AM Provider: ASHU Altamirano Hospital Day: LOS: 6 days Surgery/Procedure: Post-Op Day: 5 Days Post-Op S/P CABG X 3 + Endoscopic Vein [place] (RGSV) Room: [address] [place] [address] (Acute care status) PROBLEM LIST Principal Problem: NSTEMI (non-ST elevation myocardial infarction) (HCC) Active Problems: CAD (coronary artery disease), [place] coronary artery IDDM HUNTER SUBJECTIVE: Hospital Timeline: 06/14: Admission 06/15: CABG x3, R-EVH 06/16: ICU: Extubated @0400, overnight hypoxemia/hypercarbia - BiPAP, diuresis 06/17:ICU: 4-6L NC/BiPAP, diuresis, Shields out 06/18:ICU: 3-4L NC/BiPAP, diuresis, Flomax added 06/19: ICU: 3L NC/BiPAP, diuresis, +/-tx to 4RP 06/20: 4RP: 2L NC/BiPAP, diuresis, start Plavix Patient Summary Overnight: - HD stable, NSR - On 2L NC this AM, tolerated BiPAP ~4h overnight, CABA slowly improving - Up to chair, ambulating more yest (~400ft, but w/frequent rest breaks) - Mentation cleared, no issues w/confusion/AMS yest - UOP 945ml overnight, 2245ml + 5 voids for 24h OBJECTIVE: Current weight: Weight: 134.7 kg (296 lb 15.4 oz) Admission weight: Weight: 132 kg (291 lb 0.1 oz) Vital Signs: BP 137/65 mmHg | Pulse 69 | Temp(Src) 98.8 F (37.1 C) (Oral) | Resp 22 | Ht 1.753 m (5' 9") | Wt 134.7 kg (296 lb 15.4 oz) | BMI 43.83 kg/m2 | SpO2 99% 24h: Temp: [97.7 F (36.5 C)-99 F (37.2 C)] 98.8 F (37.1 C) Heart Rate: [65-85] 69 Resp: [21-22] 22 BP: (86-176)/(49-79) 137/65 mmHg FiO2 : [30 %] 30 % Intake/Output Summary (Last 24 hours) at 06/20/16614 Last data filed at 06/20/16 0614 Gross per 24 hour Intake 900 ml Output 2595 ml Net -1695 ml 06/19 0700 - 06/20 0659 In: 800 [P.O.:800] Out: 2245 [Urine:2245] Physical Exam: GENERAL: A&O x 3, in no acute distress. Mild confusion/forgetfulness, impulsive NEURO: PERRLA, EOMI; no facial asymmetry, speech normal and non pressured. Normal ROM. HEENT: Sclerae clear, nonicteric; Oral Mucosa moist and pink. NECK: No JVD noted, carotid upstrokes brisk without bruits. No thyromegaly. HEART: RRR w/normal S1/S2. No murmur, rub, heave, or gallop noted. LUNGS: Lungs are clear to auscultation but distant without wheezing, crackles, or rhonchi. Dim bases ABDOMEN: Soft, nondistended, nontender. EXTREMITIES: +1 generalized and +3 BLE (R>L) and perineal edema; Bilateral radial, dorsalis pedis, and posterior tibialis pulses palpable. No clubbing or cyanosis noted. SKIN: Midsternal and RLE incisions clean, dry, and intact. No erythema, edema/inflammation , discharge, or warmth noted around the incision site. No rash or mottling DATA: Scheduled Medications aspirin 325 mg Oral Nightly atorvastatin 80 mg Oral Nightly cholecalciferol 2,000 Units Oral Daily cyanocobalamin 500 mcg Oral Daily docusate sodium 100 mg Oral BID famotidine 20 mg Oral BID Or famotidine 20 mg Intravenous BID insulin detemir 13 Units Subcutaneous BID insulin lispro (human) 1-7 Units Subcutaneous Nightly insulin lispro (human) 2-14 Units Subcutaneous TID AC insulin lispro (human) 5 Units Subcutaneous TID AC lisinopril 5 mg Oral Daily magnesium hydroxide 30 mL Oral Daily metFORMIN 1,000 mg Oral BID WC metoprolol 25 mg Oral BID tamsulosin 0.4 mg Oral Daily Continuous Infusions amiodarone infusion PRN Medications acetaminophen OR acetaminophen, albuterol, aluminum-magnesium hydroxide-simethicone, am iodarone IV bolus, amiodarone infusion, bisacodyl, dextrose, dextrose, dextrose, hydrALAZINE , magnesium sulfate OR magnesium sulfate OR magnesium sulfate, mineral oil-hydrophil ic petrolatum, ondansetron, polyethylene glycol, potassium OR potassium OR potassium OR potassium chloride OR potassium chloride OR potassium chloride, sodium chlor chelsey, saline lock IV - prn tolerating PO fluid AND sodium chloride, sodium phosphate, tra MADol OR traMADol LABS: Recent Labs Lab 06/20/1641006/19/1660006/18/16429 WBC 7.45 7.84 8.38 RBC 2.68* 2.64* 3.02* HGB 7.8* 7.7* 8.9* HCT 24.0* 23.6* 27.2* MCV 89.5 89.2 90.1 MCH 29.0 29.0 29.4 MCHC 32.4 32.5 32.6 RDW 42.9 42.4 42.0 PLT 203 170 140* MPV 9.5 9.6 9.8 DIFFTYPE AUTOMATED AUTOMATED AUTOMATED Recent Labs Lab 06/20/1641006/19/1660006/18/16429 NA 139 138 137 K 4.6 5.0* 5.6* CL 103 104 104 CO2 32 29 29 ANIONGAP 9 10 10 GLUF 135* 175* 156* BUN 43* 48* 53* CREATININE 0.9 0.9 1.4* BCR 48 53 38 CA 8.1* 8.7 8.2* EGFR >60 >60 55* MG 2.5* 2.8* 3.4* Imaging: X-ray chest 2 view Pending ASSESSMENT & PLAN: CARDIAC S/P CABG x3, R-EVH (06/15/16): Optimized on ASA (325mg), atorvastatin (80mg, takes rosuvastatin 20mg at home), BB (meto prolol 12.5mg BID), ZEUS-I (lisinopril 5mg, takes 40mg at home) Chest tubes out 06/17, pacing wires 06/18 NSTEMI/STEMI: Will start Plavix today H/O HTN: On home med lisinopril (5mg, home dose 40mg) RESPIRATORY BiPAP at night for HUNTER, may need referral for pulm/sleep study after discharge Encourage IS q15min while awake, aggressive pulmonary toilet Wean O2 as tolerated /RENAL Shields out 06/17, voiding well on own Continue strict I/O, daily weights Post-op fluid overload: Lasix 40mg IVP x1 today for diuresis (excellent response yest), monitor 'lytes 1.5L/24h fluid restriction, aim for net- daily fluid balance ENDO H/O T2DM: Fasting BG 135 (135-195), on EndoTool basal/bolus/SSI; Levemir 13un BID On home med metformin (1000mg BID); Lantus (50un BID) and Novolog (33un w/meals) home do ses on HOLD for now, will restart when able/as needed HEME Acute blood loss anemia (post-op, also likely dilutional as well s/t post-op fluid overl oad): Stable; should improve some with continued diuresis, also on Fe/vit C supplement Will continue to monitor Increase ambulation as tolerated, PT/OT CM consulted for discharge needs, plan is for SNF (referrals sent out), likely ready lat er this week if resp status and mobility continues to improve Disposition: Cardiac Unit (waiting for bed on 4RP) The patient has been seen and the plan has been discussed with the attending provider, Dr.C carlson. Lila Grigsby YasstephanieASHU 06/20/2016 onversio n Transaction, Provider Unknown - 06/19/2016 4:51 PM PDTFormatting of this note might be di fferent from the original. Nurse Progress Note by Chad Hennessy RN at 06/19/161650 Author: Chad Hennessy RN Service: (none) Author Type: Registered Nurse Filed: 06/19/161651 Date of Service: 06/19/161650 Status: Signed Software Packager: Chad Hennessy RN (Registered Nurse) I received report on this patient from Jyoti HAMMOND and assumed care of this patient at this time . CHAD HENNESSY RN 06/19/2016 4:52 PM onver paul Transaction, Provider Unknown - 06/19/2016 4:00 PM PDT Therapy Progress Note by Fracisco Ying PT at 06/19/16 1600 Author: Fracisco Ying PT Service: (none) Author Type: Physical Therapist Filed: 06/19/16 163 Date of Service: 06/19/16 1600 Status: Signed Software Packager: Fracisco Ying PT (Physical Therapist) 06/19/16 1600 PT Last Visit PT Received On 06/19/16 Reason for Treatment Cardiac (CABG x 3) Requires PT Follow Up Yes Follow up PT Only? No Assistance Required 2 person (w/c follow, safety concerns) Precautions Cardiac Precautions Sternal Other Precautions fall risk Other Comments Comments pt. sitting in recliner and agreeable to PT. Cont. ed on sternal precautions pt w as able to get 60% without prompts. sit to stand two tries Mod A, pt. ambulated 200' with F WW with VC for using walker for balance and not putting weight through it. pt has better ca dence this afternoon but does go slightly right as he ambulates. posture cues needed. pt. sitting in chair at the end of sesison with call light in reach and spouse in room. Cognition Overall Cognitive Status WFL Orientation Level Oriented Transfers Sit to/from Stand Moderate assist (to arise OR lower) Mobility Ambulation Assistance Minimal assist Maximal Ambulation Distance (feet) 100 Total Ambulation Distance (feet) 200 Distance limited by? Patient's ability Pattern Decreased michelle;Right swing foot passes stance foot;Left swing foot passes stance foot;Alternating Assistive Device Walker front wheeled (bariatric) Modalities Modalities Other therapy Other Therapy cont ed. on sternal precations Activity Tolerance Activity Tolerance Patient limited by fatigue Nurse Made Aware yes Safety Devices Safety Devices in Place (call light in reach) Restraints Initially in Place No Plan Treatment/Interventions Continue per Primary PT POC Progress Progressing toward goals Recommendation Recommendations SNF Barriers to Discharge Physical Deficits Impacting Functional [place];Self-care Deficit s Impacting Functional [place];Pain onver paul Transaction, Provider Unknown - 06/19/2016 9:50 AM PDT Therapy Progress Note by LESLIE Saavedra at 06/19/16949 Author: LESLIE Saavedra Service: (none) Author Type: Massage Therapist Filed: 06/19/16949 Date of Service: 06/19/16949 Status: Signed Software Packager: LESLIE Saavedra (Massage Therapist) 06/19/16949 Massage Therapy Interventions Locations Back;Neck;Shoulder Massage Therapy Technique Effleurage;Petrissage;Grenadian massage Response to treatment Decreased muscle tension onver paul Transaction, Provider Unknown - 06/19/2016 8:14 AM PDT Case Management by CLYDE Erickson at 06/19/16813 Author: CLYDE Erickson Service: (none) Author Type: School Leader Filed: 06/19/16846 Date of Service: 06/19/16813 Status: Addendum Software Packager: CLYDE Erickson (School Leader) Related Notes: Original Note by CLYDE Erickson (School Leader) filed at 06/19/16815 Received referral from [facility] to work on d/c plan. Pt confused yesterday, did not know that he had his surgery already. Pt had been planning to go home with his SO, Jenniffer. PT notes jerry bobby recommending SNF. I called SO and left a message requesting a return call. As a back up plan I placed pt on list at [facility] as pt lives in [place]. Awai t return call from SO. Addendum: Spoke with in pt's room. does not want [facility]. She is open to [facility] and [facility]. Made referrals to both. onver paul Transaction, Provider Unknown - 06/19/2016 7:40 AM PDT Therapy Progress Note by Fracisco Ying PT at 06/19/16739 Author: Fracisco Ying PT Service: (none) Author Type: Physical Therapist Filed: 06/19/16904 Date of Service: 06/19/16739 Status: Signed Software Packager: Fracisco Ying PT (Physical Therapist) 06/19/16739 PT Last Visit PT Received On 06/19/16 Reason for Treatment Cardiac (CABG x 3) Requires PT Follow Up Yes Follow up PT Only? Yes (medical status) Assistance Required 2 person (w/c follow, safety concerns) Precautions Cardiac Precautions Sternal Other Precautions fall risk Other Comments Comments pt. sitting in recliner when PT came in and pt. was agreeable to therapy. pt. le thargic and had to be woken up multiple times during education on sternal precautions. pt. able to get about 40% of sternal precautions with out prompts. pt. sit to stand Mod A, pt. ambulated 150' with FWW with education on just using it for balance not pushing through it w ith his arms and Min A. w/c follow for safety as pt. fatigues realatively easy. Discussed with pt and spouse, they report pt. just sweats with pretty much any type of movement. pt. very stable at this time, took O2 and BP multiple times and were WFL. pt. very fatigued aft er ambulating but seemed to recover after a few minutes and HR,BP and O2 were about were the y started before ambulation. pt. sitting in chair at end of sesion with spouse in room, sarahy l light in reach. Cognition Overall Cognitive Status WFL Orientation Level Oriented Comments lethargic Transfers Sit to/from Stand Moderate assist (to arise OR lower) Mobility Ambulation Assistance Minimal assist Maximal Ambulation Distance (feet) 50 (standing rest breaks) Total Ambulation Distance (feet) 150 Distance limited by? Patient's ability Pattern Decreased michelle;Right swing foot doesn't pass stance foot;Left swing foot doesn't pass stance foot Assistive Device Walker front wheeled (bariatric) Modalities Modalities Other therapy Other Therapy cont. ed on sternal precautions and the importance of movement Activity Tolerance Activity Tolerance Patient limited by fatigue;Patient limited by pain Nurse Made Aware yes Safety Devices Safety Devices in Place (call light in reach, spouse in room) Restraints Initially in Place No Plan Treatment/Interventions Continue per Primary PT POC Progress Progressing toward goals Recommendation Recommendations SNF Barriers to Discharge Physical Deficits Impacting Functional [place];Self-care Deficit s Impacting Functional [place];Pain Recommendation Comments pt. doing better today, but should benefit from SNF to imporve stre ngth, functional mobility and endurance Lila Barron ARNP - 06/19/2016 5:51 AM PDTFormatting of this note might be differ ent from the original. Progress Notes by ASHU Altamirano at 06/19/16 6279 Author: ASHU Altamirano Service: Cardiac, Thoracic, and Vascular Surgery [facility] Type: Advanced Registered Nurse Practitioner Filed: 06/19/16 0921 Date of Service: 06/19/16 0544 Status: Attested Software Packager: ASHU Altamirano ([place] Registered Nurse Practitioner) Cosigner: Kendall Morales MD at 06/19/16 2097 Attestation signed by Kendall Morales MD at 06/19/16 4790 Patient was seen, examined, labs, x-rays, treatment plan reviewed. - [facility] Cardiothoracic Surgery Progress Note Date/Time:06/19/2016 5:56 AM Provider: ASHU Altamirano Hospital Day: LOS: 5 days Surgery/Procedure: Post-Op Day: 4 Days Post-Op S/P CABG X 3 + Endoscopic Vein [place] (RGSV) Room: [address] [place] [address] PROBLEM LIST Principal Problem: NSTEMI (non-ST elevation myocardial infarction) ([facility]) Active Problems: CAD (coronary artery disease), [place] coronary artery IDDM HUNTER SUBJECTIVE: Hospital Timeline: 06/14: Admission 06/15: CABG x3, R-EVH 06/16: ICU: Extubated @0400, overnight hypoxemia/hypercarbia - BiPAP, diuresis 06/17:ICU: 4-6L NC/BiPAP, diuresis, Shields out 06/18:ICU: 3-4L NC/BiPAP, diuresis, Flomax added 06/19: ICU: 3L NC/BiPAP, diuresis, +/-tx to 4RP Patient Summary Overnight: - HD stable, NSR -On 3L NC this AM, only tolerated ~2.5h BiPAP overnight, shallow/tachy breathing, easily dy spneic, gets confused at times, forgetful - Up to chair, somnolent - UOP 700ml overnight, 2025ml for 24h OBJECTIVE: Current weight: Weight: 137.8 kg (303 lb 12.7 oz) Admission weight: Weight: 132 kg (291 lb 0.1 oz) Vital Signs: BP 133/66 mmHg | Pulse 72 | Temp(Src) 98.2 F (36.8 C) (Oral) | Resp 20 | Ht 1.753 m (5' 9") | Wt 137.2 kg (302 lb 7.5 oz) | BMI 44.65 kg/m2 | SpO2 98% 24h: Temp: [97.5 F (36.4 C)-99.2 F (37.3 C)] 98.2 F (36.8 C) Heart Rate: [72-91] 72 Resp: [16-22] 20 BP: (99-156)/(47-89) 133/66 mmHg FiO2 : [30 %] 30 % Intake/Output Summary (Last 24 hours) at 06/19/16 0556 Last data filed at 06/19/16 0014 Gross per 24 hour Intake 2012 ml Output 1675 ml Net 337 ml 06/18 0700 06/19 0659 In: 2011 [P.O.:1963] Out: 1675 [Urine:1675] Physical Exam: GENERAL: A&O x 3, in no acute distress. Mild confusion/forgetfulness, impulsive NEURO: PERRLA, EOMI; no facial asymmetry, speech normal and non pressured. Normal ROM. GCS: 15 HEENT: Sclerae clear, nonicteric; Oral Mucosa moist and pink. NECK: No JVD noted, carotid upstrokes brisk without bruits. No thyromegaly. HEART: RRR w/normal S1/S2. No murmur, rub, heave, or gallop noted. LUNGS: Lungs are clear to auscultation but distant without wheezing, crackles, or rhonchi. Dim bases ABDOMEN: Soft, nondistended, nontender. EXTREMITIES: +1 generalized and +3 BLE edema (R>L); Bilateral radial, dorsalis pedis, and p osterior tibialis pulses moderate. No clubbing or cyanosis noted. SKIN: Midsternal and RLE dressings clean, dry, and intact. No erythema, edema/inflammation , discharge, or warmth noted around the incision site. No rash or mottling DATA: Scheduled Medications aspirin 324 mg Per NG tube Nightly Or aspirin 325 mg Oral Nightly Or aspirin 300 mg Rectal Nightly atorvastatin 80 mg Oral Nightly cholecalciferol 2,000 Units Oral Daily cyanocobalamin 500 mcg Oral Daily docusate sodium 100 mg Oral BID famotidine 20 mg Oral BID Or famotidine 20 mg Intravenous BID insulin detemir 25 Units Subcutaneous Nightly insulin lispro (human) 1-7 Units Subcutaneous Nightly insulin lispro (human) 2-14 Units Subcutaneous TID AC insulin lispro (human) 5 Units Subcutaneous TID AC magnesium hydroxide 30 mL Oral Daily metoprolol 12.5 mg Oral BID sodium chloride 10 mL Intravenous 2 times per day sodium phosphate 1 enema Rectal Once tamsulosin 0.4 mg Oral Daily Continuous Infusions amiodarone infusion dexmedetomidine in NS Stopped (06/17/16400) EPINEPHrine Stopped (06/15/162129) nitroGLYCERIN in D5W Stopped (06/15/162129) norepinephrine phenylephrine Stopped (06/17/1610) vasopressin Stopped (06/16/162327) PRN Medications acetaminophen OR acetaminophen OR acetaminophen, albumin human, albuterol, aluminum -magnesium hydroxide-simethicone, amiodarone IV bolus, amiodarone infusion, atropine, bisaco dyl, calcium chloride, dexmedetomidine in NS, dextrose, dextrose, dextrose, dextrose, EPINEP Hrine, hydrALAZINE, [] HYDROmorphone FOLLOWED BY HYDROmorphone, insulin regular 1 unit/mL, lactated ringers, magnesium sulfate, meperidine, mineral oil-hydrophilic petrolatu m, nitroGLYCERIN in D5W, norepinephrine, oxyCODONE OR oxyCODONE, phenylephrine, potassiu m chloride, sodium chloride, vasopressin LABS: Recent Labs Lab 06/19/16 0606/18/16 0430 06/17/16 0357 WBC 7.84 8.38 14.08* RBC 2.64* 3.02* 2.87* HGB 7.7* 8.9* 8.5* HCT 23.6* 27.2* 25.1* MCV 89.2 90.1 87.5 MCH 29.0 29.4 29.5 MCHC 32.5 32.6 33.7 RDW 42.4 42.0 42.0 PLT 170 140* 145* MPV 9.6 9.8 9.5 DIFFTYPE AUTOMATED AUTOMATED AUTOMATED Recent Labs Lab 06/19/16 0601 06/18/16 0430 06/17/16 1238 06/17/16 0357 NA 138 137 138 137 K 5.0* 5.6* 5.2* 5.9* CL 104 104 104 104 CO2 29 29 27 26 ANIONGAP 10 10 12 13 GLUF 175* 156* 203* 174* BUN 48* 53* 44* 41* CREATININE 0.9 1.4* 1.6* 1.7* BCR 53 38 28 24 CA 8.7 8.2* 7.7* 7.6* EGFR >60 55* 47* 44* MG 2.8* 3.4* -- 2.8* Imaging: X-ray chest 1 view FINDINGS: Cardiac enlargement post median sternotomy. Shifting bilateral perihilar and left basilar a telectasis. Prominence of the superior mediastinum again noted. Right IJ sheath has been rem abel. No pneumothorax. IMPRESSION: 1. Removal right IJ sheath. 2. Persistent moderate cardiac enlargement. 3. Shifting bilateral perihilar atelectasis, overall slightly improved. 4. No pneumothorax. SSMENT & PLAN: CARDIAC S/P CABG x3, R-EVH (06/15/16): Optimized on ASA (325mg), atorvastatin (80mg, takes rosuvastatin 20mg at home), BB (meto prolol 12.5mg BID); will restart ZEUS-I (lisinopril 5mg, takes 40mg at home) now that renal f xn improving Chest tubes out 06/17, pacing wires 06/18 NSTEMI/STEMI: Will start Plavix POD#5 or at discharge H/O HTN: Will restart lisinopril today (5mg, home dose 40mg) RESPIRATORY BiPAP at night for HUNTER and prn for hypoxia, otherwise NC if tolerated, up to chair Encourage IS q15min while awake, aggressive pulmonary toilet Wean O2 as tolerated Continue to monitor hypoxemia/hypercarbia - continues to be mildly confused, improves w/ BiPAP but pt doesn't tolerate the mask well; may improve with continued diuresis as well /RENAL Shileds out 06/17, voiding well on own Continue strict I/O, daily weights Post-op fluid overload: Increase lasix to 40mg IVP x2 today for diuresis, monitor 'lytes 1.5L/24h fluid restriction, aim for net- daily fluid balance ENDO H/O T2DM: Fasting BG 175 (155-215), on EndoTool basal/bolus/SSI; Levemir at 25un nightly (will mara nge to 13un BID), but only 1/2 dose given last night d/t lack of PO intake Will restart home med metformin (1000mg BID); Lantus (50un BID) and Novolog (33un w/meal s) home doses on HOLD for now, will restart when able/as needed HEME Acute blood loss anemia (post-op, also likely dilutional as well s/t post-op fluid overl oad): Should improve some with diuresis, will also start Fe/vit C supplement today Increase ambulation as tolerated, PT/OT CM consulted for discharge needs, plan is for SNF (referrals sent out), likely ready lat er this week if resp status and mentation improves Disposition: Likely transfer to Cardiac Unit later today if resp/mentation remains stable The patient has been seen and the plan has been discussed with the attending provider, Dr.C roberson. Lila Grigsby ASHU Bear 06/19/2016 onversio n Transaction, Provider Unknown - 06/18/2016 4:45 PM PDTFormatting of this note might be di fferent from the original. Progress Notes by Leeanna Vang RD, CD at 06/18/16 410 Author: Leeanna Vang RD, CD Service: (none) Author Type: Registered Dietitian Filed: 06/18/161644 Date of Service: 06/18/161644 Status: Signed Software Packager: Leeanna Vang RD, CD (Registered Dietitian) 06/18/16 9152 Subjective Timepoint Admit (CABG day 3) Pt c/o Pt was admitted with NSTEMI, angina, and severe CAD. POD #3 s/p CABG x 3. Pt had jus t finished working with PT when seen. Per PT, pt became anxious and diaphoretic and was unab le to participate in education at that time. Mental status has been waxing and waning. Son w as at the bedside. Diet Experience Self-selected diet(s) followed Son reports that pt had been eating well up until admit. Tri es to limit his salt intake but son states that pt is stubborn and often does not adhere to dietary recommendations. Pt cooks for himself at home. Tends to prepare a lot of stews using fresh vegetables from his garden. Son does not think that pt has had any diabetic diet educ ation in the past. Fluid / Beverage Intake Oral Fluids Amount Drinking liquids ad jass. Likes milk. Liquid Meal Replacement or Supplement Pt is receiving Boost Glucose Control TID. Tried a ch ocolate flavor and did not really like it. Has a vanilla flavor in the fridge. Per son, pt m ay prefer strawberry. Food Intake Amount of Food Per son, pt ate about 6 bites of eggs and a half a slice of toast for breakf ast. Ate better at lunch time, finished most of the lunch special which consisted of meatloa f, potatoes, squash, etc. Type of Food / Meals Cardiac, diabetic, 2400 kcal diet. Meal / Snack Pattern House diet. Micronutrient Intake Vitamin Intake B12;D Food and Nutrition Knowledge Area(s) and Level of Knowledge Will f/u to provide cardiac, diabetic diet education once me ntal status improves and pt is able to fully participate in conversation and retain informat ion. Nutrition-Focused Physical Findings Overall Appearance Obese, lethargic. On nasal cannula. Extremities, Muscles and Bones 3+ generalized edema with 4+ RLE and 3+ LLE edema. Anthropometrics Weight change Wt has been stable prior to admit. BMI 42.65 - grade 3 obesity. Biochemical data, medical tests, and procedures reviewed Biochemical data, medical tests, and procedures reviewed BUN 53 (H), Cr 1.4 (H), K+ 5.6 (H) - renal insufficiency. Lasix ordered. BG has been elevated in the 100s-200s, on Levemir and Humalog insulin. HgbA1c 8.8 - poor glycemic control for at least the past 2-3 months. Aga Felder referral. Estimated Energy Needs Total Energy Estimated Needs 6888-7293 kcal/day Method for Estimating Needs 30-35 kcal/kg adjusted wt (87.3 kg) Estimated Protein Needs Total Protein Estimated Needs 113-157 g protein/day Method for Estimating Needs 1.3-1.8 g protein/kg adjusted wt (87.3 kg) Recommendations Recommended energy needs Continue diabetic, cardiac diet as ordered. Recommend removing sarahy oric restriction. Encourage PO intake. House diet is appropriate to ensure pt receives meals on a consistent basis until cognitive status improves. Continue Boost Glucose Control TID. Will arrange for a strawberry flavor to be sent for pt to try. Will continue to monitor clin ical course and f/u with further nutrition recs as indicated. Nutritional Risk Nutritional risk High Follow up date 06/21/[address], CD, CNSC 06/18/2016 Harish Riggins MD - 06/18/2016 3:43 PM PDT Progress Notes by Harish Fiore MD at 06/18/16 6822 Author: Harish Fiore MD Service: Cryptological Technician Author Type: Physician Filed: 06/18/16 8300 Date of Service: 06/18/161542 Status: Signed Software Packager: Harish Fiore MD (Physician) [facility] Service: Cryptological Technician Progress Note Tr Caballero 61 y.o. Hospital Day: LOS: 4 days Post-Op Day: 3 Days Post-Op Consulting Physicians Treatment Team: Admitting Provider: Kendall Morales MD SUBJECTIVE Patient Summary: 61 y/o man with DM, HTN, HUNTER s/o CABG. Consulted for Acute Hypercar juvenal and mental status changes. ICU Timeline: 06/14-Admission 06/15-CABGx3 06/16-Extubated. Consulted for Hypercarbia and mental status changes. Events Overnight: Fluctuation in mental status. Intermittent BiPAP use SCHEDULED MEDICATIONS aspirin 324 mg Per NG tube Nightly Or aspirin 325 mg Oral Nightly Or aspirin 300 mg Rectal Nightly atorvastatin 80 mg Oral Nightly cholecalciferol 2,000 Units Oral Daily cyanocobalamin 500 mcg Oral Daily docusate sodium 100 mg Oral BID famotidine 20 mg Oral BID Or famotidine 20 mg Intravenous BID furosemide 20 mg Intravenous BID-Diuretics insulin detemir 25 Units Subcutaneous Nightly insulin lispro (human) 1-7 Units Subcutaneous Nightly insulin lispro (human) 2-14 Units Subcutaneous TID AC insulin lispro (human) 5 Units Subcutaneous TID AC magnesium hydroxide 30 mL Oral Daily metoprolol 12.5 mg Oral BID sodium chloride 10 mL Intravenous 2 times per day sodium phosphate 1 enema Rectal Once tamsulosin 0.4 mg Oral Daily CONTINUOUS INFUSIONS amiodarone infusion dexmedetomidine in NS Stopped (06/17/16400) EPINEPHrine Stopped (06/15/162129) nitroGLYCERIN in D5W Stopped (06/15/162129) norepinephrine phenylephrine Stopped (06/17/1610) vasopressin Stopped (06/16/162327) OBJECTIVE VITAL SIGNS Temp: [97.5 F (36.4 C)-99 F (37.2 C)] 99 F (37.2 C) Heart Rate: [67-90] 78 Resp: [16-24] 16 BP: (99-159)/(47-89) 99/47 mmHg FiO2 : [30 %-35 %] 30 % Intake/Output Summary (Last 24 hours) at 06/18/16 1544 Last data filed at 06/18/16 1330 Gross per 24 hour Intake 437 ml Output 1450 ml Net -1013 ml EXAM GEN: awake, alert, oriented x3, NAD NEURO: PERRLA, EOMI, no facial asymmetry, moves all extremities well GCS: 15 HEENT: sclerae clear, nonicteric, oral mmm, pink, no exudates NECK: supple, trachea midline HEART: RRR, S1/S2, no murmur, rub or gallop LUNGS: clear b/l, no wheezing, rales or rhonchi, symmetric chest expansion, even/unlabored respirations ABD: soft, nondistended, nontender to palpation, no masses, no hepatosplenomegaly EXTR: 2+ edema lower extremities SKIN: midsternal dressing C/D/I. DATA Recent Labs Lab 06/18/1642906/17/1635606/16/1635106/15/16 2128 WBC 8.38 14.08* 13.04* 18.36* RBC 3.02* 2.87* 3.35* 3.40* HGB 8.9* 8.5* 9.8* 9.8* HCT 27.2* 25.1* 29.4* 30.1* MCV 90.1 87.5 87.7 88.3 MCH 29.4 29.5 29.3 28.9 MCHC 32.6 33.7 33.4 32.7 RDW 42.0 42.0 40.7 41.1 PLT 140* 145* 163 175 MPV 9.8 9.5 9.4 8.3 BANDSABS -- -- -- 3.49* NEUTROABS 6.27 11.16* 11.00* -- LYMPHSABS 1.06 1.43 0.90* -- MONOSABS 0.91* 1.43* 1.10* -- BASOSABS 0.03 0.03 0.03 -- EOSABS 0.10 0.02 0.01 -- MORPH -- -- -- RBC AND PLT MORPHOLOGY APPEAR NORMAL Recent Labs Lab 06/18/1642906/17/16 1238 06/17/1635606/16/1635106/15/16 0721 NA 137 138 137 -- 141 < > 137 K 5.6* 5.2* 5.9* < > 5.7* < > 4.5 CL 104 104 104 -- 107 < > 100 CO2 29 27 26 -- 25 < > 31 ANIONGAP 10 12 13 -- 15 < > 10 GLUF 156* 203* 174* -- 230* < > 92 BUN 53* 44* 41* -- 29* < > 30* CREATININE 1.4* 1.6* 1.7* -- 1.1 < > 0.93 BCR 38 28 24 -- 26 < > 32 CA 8.2* 7.7* 7.6* -- 7.7* < > 8.7 ALB -- -- -- -- -- -- 3.3 GLOB -- -- -- -- -- -- 3.6 AG -- -- -- -- -- -- 0.9* PROT -- -- -- -- -- -- 6.9 BILITOT -- -- -- -- -- -- 0.5 ALT -- -- -- -- -- -- 23 AST -- -- -- -- -- -- 13 EGFR 55* 47* 44* -- >60 < > >60 MG 3.4* -- 2.8* -- 2.5* < > 2.3 < > = values in this interval not displayed. Recent Labs Lab 06/15/168 INR 1.2 IMAGING PROBLEM LIST Principal Problem: NSTEMI (non-ST elevation myocardial infarction) (HCC) Active Problems: CAD (coronary artery disease), [place] coronary artery ASSESSMENT & PLAN -Continue NIPPV as needed and for naps and night sleep. -Pulmonary toilet -Minimize narcotics -Diuresis per CT surgery -Outpatient sleep studies Harish Fiore MD 06/18/2016 3:44 PM onversion Transact ion, Provider Unknown - 06/18/2016 2:42 PM PDTFormatting of this note might be different fr om the original. Therapy Progress Note by Deisy Koch PT at 06/18/16 0997 Author: Deisy [place], PT Service: (none) Author Type: Physical Therapist Filed: 06/18/16 1270 Date of Service: 06/18/16 1442 Status: Signed Software Packager: Deisy Koch PT (Physical Therapist) 06/18/16 1442 PT Last Visit PT Received On 06/18/16 Reason for Treatment Cardiac (CABG x 3) Requires PT Follow Up Yes Follow up PT Only? Yes (medical status) Assistance Required 2 person (w/c follow; safety concerns d/t medical status) Precautions Cardiac Precautions Sternal Other Precautions fall precautions Other Comments Comments Pt in recliner chair upon arrival. Appears mildly diaphoretic and is constantly ad justing position in chair as if he is uncomfortable. Admits he is eager to return to bed. Pr e-activity: BP 152/75, HR 77 bpm, SpO2 96% on 3 L O2. Pt's son present to encourage pt. FWW trialed this session for ambulation. Pt attempted to pull himself into standing with walker and required cues to continue to utilize heart pillow. Still needing v.i. to achieve "nose o cecilio toes" position during STS transfer. Mild unsteadiness in intial standing. SIMONA is very wi de. Breathing immediately becomes more laborsome just in standing position but pt denies any worsening perceived dyspnea. Gait proceeded cautiously with slow michelle. Pt requiring min/ mod A for trunk stability and also assist to advance/turn walker. Gait speed and stride twan th was significantly slower than this morning and it appeared much more laborsome for pt. Pt became even more diaphoretic and reported significant fatigue. HR 89 bpm, SpO2 93%. LEs and UEs became mildly tremulous and pt was assisted into w/c. Even after 5 minutes of rest pt d id not seem to recover much (remained dyspneic, tachypneic, very diaphoretic) so he was push ed back to room in w/c and assisted into bed. Post activity: BP 156/71, HR 77 bpm, SpO2 96%. RN present and aware of pt's poor response to activity. Pt reporting no clear symptoms asi de from extreme fatigue. Cognition Overall Cognitive Status GIANA Orientation Level Oriented Bed Mobility Rolling Maximal assist;x 1 person Sit to Sidelying Max assist (BLEs into bed & trunk to lower);x 2 person Transfers Sit to/from Stand Moderate assist (to arise OR lower);x 1 person Mobility Ambulation Assistance Moderate assist;Minimal assist;X1;X2 (w/c follow for safety) Maximal Ambulation Distance (feet) 20 Total Ambulation Distance (feet) 20 Distance limited by? Patient's ability Pattern Decreased michelle;Right swing foot doesn't pass stance foot;Left swing foot doesn't pass stance foot Assistive Device Walker front wheeled (bariatric) Seated Seated-Exercise Type Long arc quads;Heel raises;Toe raises Seated-Exercise Comments x 5 ea bilat Modalities Other Therapy Ed son on ongoing mobility progression based on response to activity. Ed pt o n breathing technique, pacing, and safe mobility techniques. Activity Tolerance Activity Tolerance Patient limited by fatigue;Treatment limited secondary to medical compli cations;Patient limited by shortness of breath (SOB) Nurse Made Aware STEPHANY Hitchcock Safety Devices Safety Devices in Place (call light in reach; needs met; son present) Plan Treatment/Interventions Continue per Primary PT POC Progress Slow progress, medical status limitations;Slow progress, decreased activity tolera nce Recommendation Recommendations SNF Barriers to Discharge Physical Deficits Impacting Functional [place];Self-care Deficit s Impacting Functional [place];Cognitive Deficits Impacting Functional [place] Recommendation Comments Pt desires to return home and will still work towards this goal, bu t based on limited activity tolerance today, may benefit from SNF placement prior to returni ng home. onver paul Transaction, Provider Unknown - 06/18/2016 2:28 PM PDT Therapy Progress Note by GRANT Cifuentes at 06/18/16 1249 Author: GRANT Cifuentes Service: (none) Author Type: Occupational Therapist Filed: 06/18/16 6090 Date of Service: 06/18/161427 Status: Signed Software Packager: GRANT Cifuentes (Occupational Therapist) 06/18/16 1300 Precautions Cardiac Precautions Sternal Other Precautions fall precautions Home Environment Type of Home Home one story (duplex) Home Exterior Layout Entry steps none Home Interior Layout Lives on main level with bedroom/bathroom Bathroom Shower/Tub Walk-in shower Bathroom Toilet Standard Bathroom Accessibility Accessible via walker Home Equipment Cane single point Additional Comments Pt time actually seen, 1350. 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 Provided pt with educaiton regarding grooming and sternal prec autions, pt needed vc's to correct technique immediately after being handed wash cloth to wi pe face and head. Vision-Basic Assessment Current Vision (supposed to have glasses, doesn't) Cognition Overall Cognitive Status WFL Orientation Level Oriented RUE Assessment RUE Assessment X (GIANA d/t sternal precautions) LUE Assessment LUE Assessment X (GIANA d/t sternal precautions) Hand Function Gross Grasp Functional Functional Gross Grasp Able to grasp objects without difficulty Assessment Assessment Decreased ADL status;Decreased UE ROM;Decreased endurance;Decreased self-care tr ans;Decreased high-level ADLs Prognosis Good;With family Goal Formulation Patient;Family ADL Goals Pt Will Perform Grooming Standing at sink;With min assist;Maintaining sternal precautions Pt Will Perform Bathing In shower/tub unit;With min assist;Maintaining sternal precautions Pt Will Perform UE Dressing At edge of bed;With min assist;Maintaining sternal precautions Pt Will Perform LE Dressing At edge of bed;With min assist;Maintaining sternal precautions Functional Transfer Goals Pt Will Perform All Functional Transfers With supervision;Maintaining sternal precautions Plan Treatment Interventions ADL retraining;Functional transfer training;Functional dynamic acti vities;Therapeutic exercises;Endurance training;Patient/Family training;Equipment eval/educa tion;Compensatory technique education;Continued evaluation Progress (Initiate OT POC) OT Frequency 4-6 x/wk (Q/BID) Care Duration (Days) 10 Days Requires OT Follow Up Yes Recommendation Recommendation Defer at this time (pending acute progression) Equipment Recommended Other (comment) (tbd) OT Ready for Discharge Yes 06/18/16 1300 OT Last Visit Requires OT Follow Up Yes Precautions Cardiac Precautions Sternal Other Precautions fall precautions Other Comments Comments Pt time actually seen, 1350. Pt is a 61 yo male who was admitted from [facility] ith a 4 day history of anginal symptoms. He was evaluated at [facility] in [place] and as diagnosed with a NSTEMI. He is currently s/p CABG x 3. Pt was sitting upright int he be dside chair with RN assisting to position pt with waffle cushion for pressure relief. Pt's son was present int he room and able to answer quesitons with pt. Pt's vitals were HR 78bpm , O2 92% on 3L. Pt appears diaphoretic with moaning which appears to be from discomfort. P t able to engage in minimal education. Appeared very anxious/diaphoretic and was not engage d in educaiton. provided handouts and educaiton to son as well who wa sin the room. Inform ed pt and son we would continue to work with pt regarding ADL's with sternal precautions. N o further needs identified at this time. Activity Tolerance Activity Tolerance Patient limited by pain;Patient limited by fatigue (Pt appears diaphoretic at this time.) Safety Devices Safety Devices in Place Yes Plan Treatment Interventions ADL retraining;Functional transfer training;Functional dynamic acti vities;Therapeutic exercises;Endurance training;Patient/Family training;Equipment eval/educa tion;Compensatory technique education;Continued evaluation Progress (Initiate OT POC) OT Frequency 4-6 x/wk (Q/BID) Care Duration (Days) 10 Days Recommendation Recommendation Defer at this time (pending acute progression) Equipment Recommended Other (comment) (tbd) OT Ready for Discharge Yes Education Completed: Education Topic: OT role, ADL's while maintaining precautions Completed with: Patient, Family Completed by: Verbal Education, Written Material Response to Education: Stated Understanding, Reinforcement Necessary for Education Under standing Occupational Therapy Plan: Initiate OT POC The following recommendations are made for d/c planning at this time: Return to home w/ family support versus SNF: Pending acute progression Barriers to d/c at this time include: Self-care deficits impacting functional independence onver paul Transaction, Provider Unknown - 06/18/2016 11:44 AM PDT Therapy Progress Note by Charles Tapia [facility] at 06/18/16 1144 Author: LESLIE Saavedra Service: (none) Author Type: Massage Therapist Filed: 06/18/16 1144 Date of Service: 06/18/16 1144 Status: Signed Software Packager: LESLIE Saavedra (Massage Therapist) 06/18/16 1144 Massage Therapy Interventions Locations Back;Neck;Shoulder Massage Therapy Technique Effleurage;Petrissage;Grenadian massage Response to treatment Decreased muscle tension onver paul Transaction, Provider Unknown - 06/18/2016 10:50 AM PDT Therapy Progress Note by Brandy Streeter OTR/L at 06/18/16 1050 Author: Brandy Streeter OTR/Beth Service: (none) Author Type: Occupational Therapist Filed: 06/18/16 1050 Date of Service: 06/18/16 1050 Status: Signed Software Packager: CIRO Cifuentes/Beth (Occupational Therapist) 06/18/16 1049 OT Last Visit OT Received On 06/18/16 Requires OT Follow Up Unavailable Other Comments Comments Pt currently with PT, will follow up later this day for evaluation. onver paul Transaction, Provider Unknown - 06/18/2016 10:29 AM PDT Therapy Progress Note by Deisy Koch PT at 06/18/16 1029 Author: Deisy Koch PT Service: (none) Author Type: Physical Therapist Filed: 06/18/16 7795 Date of Service: 06/18/16 1029 Status: Signed Software Packager: Deisy Koch PT (Physical Therapist) 06/18/16 1029 PT Last Visit PT Received On 06/18/16 Reason for Treatment Cardiac (CABG x 3) Requires PT Follow Up Yes Follow up PT Only? Yes (ongoing monitoring/assessment) Assistance Required 1 person;2 person Precautions Cardiac Precautions Sternal Other Precautions fall precautions Other Comments Comments Pt in recliner upon arrival. RN had just taken pt off Bipap and placed pt on 4 L O 2. BP 123/89, HR 77 bpm, SpO2 94%. Pt appears diaphoretic at rest. Pt able to recite about 50% of sternal precautions and used pillow appropriately when coughing. Pt was extremely ret ropulsive during initial standing and required mod A to prevent posterior LOB and took about 30 seconds before he was really steady in standing. This improved with STS practice of gett ing "nose over toes." Pt's breathing sounds quite labored during ambulation, however he is a ble to maintain a conversation with therapist. Sats 92% and above, HR in 80s during activity . Therapist instructed pt to go "slow and steady" and pt repeated this to himself aloud abou t 20 times during ambulation. Pt took seated rest break in w/c between bouts of ambulation. Pt hallucinated on 2 different occasions during session, but seemed aware that it was a hager ucination (saw balloons floating and black spots on his heart pillow). Pt denied dizziness/l ightheadedness. Overall activity tolerance is gradually improving. Post-activity: BP 142/67, HR 78 bpm, SpO2 96% on 3 L o2. Pt left in recliner chair. Cognition Overall Cognitive Status GIANA (seems somewhat variable; pt was hallucinating) Orientation Level Oriented Transfers Sit to/from Stand Moderate assist (to arise OR lower);x 1 person;Verbal instruction Mobility Ambulation Assistance Minimal assist;X2 (w/c follow for safety) Maximal Ambulation Distance (feet) 70, 40 Total Ambulation Distance (feet) 110 Distance limited by? Patient's ability;Therapist/staff discretion Pattern Decreased michelle;Right swing foot doesn't pass stance foot;Left swing foot doesn't pass stance foot Assistive Device Other (Comment) (BALE PILER on w/c) Modalities Other Therapy Ongoing ed on sternal precautions, recommendations, safe mobility techniques, pacing, and breathing technique. Activity Tolerance Activity Tolerance Patient limited by fatigue;Patient limited by shortness of breath (SOB) Nurse Made Aware RN Coretta Safety Devices Safety Devices in Place (call light in reach; son present) Plan Treatment/Interventions Continue per Primary PT POC Progress Progressing toward goals Recommendation Recommendations Other (comment) (see comments; plan for SNF) Barriers to Discharge Physical Deficits Impacting Functional [place];Self-care Deficit s Impacting Functional [place] Recommendation Comments Pt having intermittent hallucinations/confusion during therapy. Pt is very receptive to teachings but overall is quite variable in abilities which could be uns afe if pt returned home. May benefit from arranging for SNF for ongoing monitoring/rehab and if pt improves prior to d/c, could always return home with family assist. Pt and son open t o this plan. oncecilio miller Transaction, Provider Unknown - 06/18/2016 10:05 AM PDT Case Management by CLYDE Erickson at 06/18/16 1005 Author: CLYDE Erickson Service: (none) Author Type: School Leader Filed: 06/18/16 1030 Date of Service: 06/18/16 1005 Status: Signed Software Packager: CLYDE Erickson (School Leader) Attended morning rounds. Pt had CABG x3. Pt has issues with severe sleep apnea requiring bi pap however pt does not like wearing the bipap. He was confused and lethargic this morning s o RN put bipap on pt which pt does not like. Met with pt and his son. Pt did not realize that he had surgery and asked when he was harini g home. Son is very supportive. Son states that pt's plans to be with pt after d/c. I explained that the sternal precautions are very important and that if pt is confused he is more likely to use his arms especially since he doesn't remember having surgery. Placed name and number on white board and encouraged son to have his mother call me if she has questions. Lila Barron ARNP - 06/18/2016 5:50 AM PDTFormatting of this note might be differ ent from the original. Progress Notes by ASHU Altamirano at 06/18/16 0550 Author: ASHU Altamirano Service: Cardiac, Thoracic, and Vascular Surgery [place] Type: Advanced Registered Nurse Practitioner Filed: 06/18/16 5767 Date of Service: 06/18/16 0550 Status: Attested Software Packager: ASHU Altamirano (Advanced Registered Nurse Practitioner) Cosigner: Kendall Morales MD at 06/18/16 1811 Attestation signed by Kendall Morales MD at 06/18/16 1811 Patient was seen, examined, labs, x-rays, treatment plan reviewed. - [facility] Cardiothoracic Surgery Progress Note Date/Time:06/18/2016 5:53 AM Provider: ASHU Altamirano Hospital Day: LOS: 4 days Surgery/Procedure: Post-Op Day: 3 Days Post-Op S/P CABG X 3 + Endoscopic Vein [place] (RGSV) Room: [address] [place] [address] PROBLEM LIST Principal Problem: NSTEMI (non-ST elevation myocardial infarction) ([facility]) Active Problems: CAD (coronary artery disease), [place] coronary artery IDDM HUNTER SUBJECTIVE: Hospital Timeline: 06/14: Admission 06/15: CABG x3, R-EVH 06/16: ICU: Extubated @0400, overnight hypoxemia/hypercarbia - BiPAP, diuresis 06/17:ICU: 4-6L NC/BiPAP, diuresis, Shields out 06/18:ICU: 3-4L NC/BiPAP, diuresis, Flomax added Patient Summary Overnight: - HD stable, NSR -On 4L NC this AM, shallow/tachy breathing, easily dyspneic, gets confused when off BiPAP f or long periods - Up to chair, lethargic this AM - UOP 425ml overnight, 1020ml for 24h OBJECTIVE: Current weight: Weight: 137.2 kg (302 lb 7.5 oz) Admission weight: Weight: 132 kg (291 lb 0.1 oz) Vital Signs: BP 159/67 mmHg | Pulse 70 | Temp(Src) 98.8 F (37.1 C) (Oral) | Resp 20 | Ht 1.753 m (5' 9") | Wt 137.2 kg (302 lb 7.5 oz) | BMI 44.65 kg/m2 | SpO2 97% 24h: Temp: [98.4 F (36.9 C)-99.3 F (37.4 C)] 98.8 F (37.1 C) Heart Rate: [67-90] 70 Resp: [16-36] 20 BP: (99-159)/(50-73) 159/67 mmHg Arterial Line BP: (96-153)/(42-64) 130/60 mmHg FiO2 : [30 %-35 %] 30 % Intake/Output Summary (Last 24 hours) at 06/18/16 0553 Last data filed at 06/17/16 1352 Gross per 24 hour Intake 2209.8 ml Output 766 ml Net 1443.8 ml 06/17 0700 - 06/18 0659 In: 1160 [P.O.:1160] Out: 684 [Urine:594] Physical Exam: GENERAL: A&O x 3, in no acute distress. Mild confusion NEURO: PERRLA, EOMI; no facial asymmetry, speech normal and non pressured. Normal ROM. GCS: 15 HEENT: Sclerae clear, nonicteric; Oral Mucosa moist and pink. NECK: No JVD noted, carotid upstrokes brisk without bruits. No thyromegaly. HEART: RRR w/normal S1/S2. No murmur, rub, heave, or gallop noted. LUNGS: Lungs are clear to auscultation but distant without wheezing, crackles, or rhonchi. Dim bases ABDOMEN: Soft, nondistended, nontender. EXTREMITIES: +2 generalized and +3 BLE edema (R>L); Bilateral radial, dorsalis pedis, and p osterior tibialis pulses moderate. No clubbing or cyanosis noted. SKIN: Midsternal and RLE dressings clean, dry, and intact. No erythema, edema/inflammation , discharge, or warmth noted around the incision site. No rash or mottling DATA: Scheduled Medications aspirin 324 mg Per NG tube Nightly Or aspirin 325 mg Oral Nightly Or aspirin 300 mg Rectal Nightly atorvastatin 80 mg Oral Nightly cholecalciferol 2,000 Units Oral Daily cyanocobalamin 500 mcg Oral Daily docusate sodium 100 mg Oral BID famotidine 20 mg Oral BID Or famotidine 20 mg Intravenous BID insulin detemir 19 Units Subcutaneous Nightly insulin lispro (human) 1-7 Units Subcutaneous Nightly insulin lispro (human) 2-14 Units Subcutaneous TID AC insulin lispro (human) 5 Units Subcutaneous TID AC magnesium hydroxide 30 mL Oral Daily metoprolol 12.5 mg Oral BID sodium phosphate 1 enema Rectal Once Continuous Infusions amiodarone infusion dexmedetomidine in NS Stopped (06/17/16 0401) EPINEPHrine Stopped (06/15/162129) nitroGLYCERIN in D5W Stopped (06/15/160) norepinephrine phenylephrine Stopped (06/17/16 0810) vasopressin Stopped (06/16/16 7753) PRN Medications acetaminophen OR acetaminophen OR acetaminophen, albumin human, albuterol, aluminum -magnesium hydroxide-simethicone, amiodarone IV bolus, amiodarone infusion, atropine, bisaco dyl, calcium chloride, dexmedetomidine in NS, dextrose, dextrose, dextrose, dextrose, EPINEP Hrine, hydrALAZINE, [] HYDROmorphone FOLLOWED BY HYDROmorphone, insulin regular 1 unit/mL, lactated ringers, magnesium sulfate, meperidine, mineral oil-hydrophilic petrolatu m, nitroGLYCERIN in D5W, norepinephrine, oxyCODONE OR oxyCODONE, phenylephrine, potassiu m chloride, vasopressin LABS: Recent Labs Lab 06/18/1642906/17/1635606/16/16 035 WBC 8.38 14.08* 13.04* RBC 3.02* 2.87* 3.35* HGB 8.9* 8.5* 9.8* HCT 27.2* 25.1* 29.4* MCV 90.1 87.5 87.7 MCH 29.4 29.5 29.3 MCHC 32.6 33.7 33.4 RDW 42.0 42.0 40.7 PLT 140* 145* 163 MPV 9.8 9.5 9.4 DIFFTYPE AUTOMATED AUTOMATED AUTOMATED Recent Labs Lab 06/18/1642906/17/16 1238 06/17/1635606/16/16 035 NA 137 138 137 -- 141 K 5.6* 5.2* 5.9* < > 5.7* CL 104 104 104 -- 107 CO2 29 27 26 -- 25 ANIONGAP 10 12 13 -- 15 GLUF 156* 203* 174* -- 230* BUN 53* 44* 41* -- 29* CREATININE 1.4* 1.6* 1.7* -- 1.1 BCR 38 28 24 -- 26 CA 8.2* 7.7* 7.6* -- 7.7* EGFR 55* 47* 44* -- >60 MG 3.4* -- 2.8* -- 2.5* < > = values in this interval not displayed. Imaging: X-ray chest 1 view FINDINGS: Persistent mild to moderate cardiac enlargement with prominence of the superior mediastinum post cardiac surgery. Bilateral perihilar and left basilar atelectasis persists. Improvemen t in pulmonary venous congestion. No pneumothorax. Removal left basilar chest drain and midl ine mediastinal drain. No pneumothorax. No pneumomediastinum. IMPRESSION: 1. Removal of the left chest tube and mediastinal drain, without pneumothorax or pneumome diastinum. 2. Persistent mild/moderate cardiac enlargement with prominence of the superior mediastin um. 3. Persistent bilateral atelectasis. SSMENT & PLAN: CARDIAC S/P CABG X 3 Optimized on ASA (325mg), atorvastatin (80mg, takes rosuvastatin 20mg at home), BB (meto prolol 12.5mg BID) Chest tubes out 06/18, remove pacing wires today Home med lisinopril (40mg) on HOLD for now, will restart when able NSTEMI/STEMI: Will start Plavix POD#5 or at discharge RESPIRATORY BiPAP at night for HUNTER and prn for hypoxia, otherwise NC if tolerated, up to chair Encourage IS q15min while awake, aggressive pulmonary toilet Wean O2 as tolerated Continue to monitor hypoxemia/hypercarbia - continues to be mildly confused, improves w/ BiPAP but pt doesn't tolerate the mask well /RENAL Shields out 06/17, has had some difficulty urinating d/t penile/scrotal edema - will start Flomax today, and Shields to be replaced if he continues to have difficulty (until edema reso lves) Continue strict I/O, daily weights 20mg lasix IVP x2 today for diuresis (post-op fluid overload), monitor 'lytes ENDO H/O T2DM: Fasting BG 156 (155-220), on EndoTool basal/bolus/SSI; will increase Levemir to 25un nig htly (was 19un) Home meds metformin (1000mg BID), Lantus (50un BID), Novolog (33un w/meals) on HOLD for now, will restart when able/as needed Increase ambulation as tolerated, PT/OT CM consulted for discharge needs, plan for home vs SNF, likely ready later this week if resp status and mentation improves Disposition: Continue ICU care d/t guarded resp status and AMS The patient has been seen and the plan has been discussed with the attending provider, Dr.C roberson. ASHU Altamirano 06/18/2016 Manuel Collier PT - 06/17/2016 5:02 PM PDTFormatting of this note might be different from the origin al. Therapy Progress Note by Sofie Matos PT at 06/17/161701 Author: Sofie Matos PT Service: (none) Author Type: Physical Therapist Filed: 06/17/16 2125 Date of Service: 06/17/161701 Status: Signed Software Packager: Sofie Matos PT (Physical Therapist) 06/17/161701 PT Last Visit PT Received On 06/17/16 Reason for Treatment Cardiac (CABG x 3) Requires PT Follow Up Yes Follow up PT Only? Yes (For assessment (may need ABG; requiring Bi-pap at times)) Assistance Required 1 person;2 person (2nd person for lines) Precautions Cardiac Precautions Sternal Other Precautions Fall precautions, monitor SpO2 Other Comments Comments Pt in recliner when PT arrived, states "I'm doing just fine" and agreeable to ther apy. VS at rest in seated: HR 82 SpO2 92% on 4L NC BP 125/50, denies pain. Pt was assiste d out of recliner requiring 2 attempts then ambulated into hallway with W/C BALE PILER. Pt require s extra time with ambulation and frequent standing rest breaks. Pt very fatigued upon retur allison to room and assisted into bed with MAX A x 2. Pt was repostioned for comfort with kavon ws. VS post-activity in supine with HOB elevated: HR 84 SpO2 92% on 5L BP 107/56. As PT w as discussing d/c planning with pt's son, pt becoming increasingly confused and disoriented. RN informed who placed pt on Bi-pap; ABG to be ordered. RN present when PT left, pt on b i-pap with son present. Cognition Overall Cognitive Status WFL Orientation Level Oriented;Disoriented (Became less oriented after mobilizing ("I'm in [place]")) Comments Some mild confusion this p.m. Per RN pt had large dose of dilauded earlier. Bed Mobility Sit to Supine Max assist (BLEs into bed & trunk to lower) Scooting Verbal instruction;Standby assist;Minimal assist Transfers Sit to/from Stand Minimal assist (steadying/contact guard);Moderate assist (to arise OR low er) Mobility Ambulation Assistance Minimal assist;X2 (2nd person for safety) Maximal Ambulation Distance (feet) 40ft x 2 Total Ambulation Distance (feet) 80ft Distance limited by? Patient's ability Pattern Alternating;Shuffling;Decreased michelle;Wide base;Right swing foot doesn't pass sta nce foot;Left swing foot doesn't pass stance foot;Forward flexed Assistive Device (BHHA on W/C) Modalities Other Therapy Ongoing pt/fam ed on sternal precautions, safety during mobility, use of call light, use of IS. Activity Tolerance Activity Tolerance Patient limited by pain;Patient limited by shortness of breath (SOB);Pat ient limited by fatigue Nurse Made Aware Yes RN Brianna Safety Devices Safety Devices in Place (Call light and needs in reach, son present) Plan Treatment/Interventions Continue per Primary PT POC Progress Progressing toward goals Recommendation Recommendations Other (comment) (SNF vs home assist) Barriers to Discharge Physical Deficits Impacting Functional [place];Self-care Deficit s Impacting Functional [place] Recommendation Comments Patient requiring MOD to MAX A at this time for most mobility tasks . Son reports "my mom is unemployed right now so she will be around to help 18/03"; pending progress in PT pt may be able to return home with family assist; may also benefit from [place] [place] rehab in SNF setting if appropriate. Jillian, GRANT Langston - 06/17/2016 10:33 AM PDT Therapy Progress Note by GRANT Fernandez at 06/17/16 1033 Author: GRANT Fernandez Service: (none) Author Type: Occupational Therapist Filed: 06/17/16 1034 Date of Service: 06/17/161032 Status: Signed Software Packager: Irina M Karina, OTR/L (Occupational Therapist) 06/17/16 1032 OT Last Visit OT Received On 06/17/16 Requires OT Follow Up On hold Other Comments Comments RN recently placed pt on facemask Bipap to keep him from re-intubation. Pt on hold at this time. ofie Matos PT - 06/17/2016 9:03 AM PDT Therapy Progress Note by Sofie Matos PT at 06/17/16 0903 Author: Sofie Matos PT Service: (none) Author Type: Physical Therapist Filed: 06/17/1634 Date of Service: 06/17/16902 Status: Signed Software Packager: Sofie Matos PT (Physical Therapist) 06/17/16 09 PT Last Visit PT Received On 06/17/16 Reason for Treatment Cardiac (CABG x 3) Requires PT Follow Up Yes Follow up PT Only? No Assistance Required 1 person;2 person (2nd person for lines) Precautions Cardiac Precautions Sternal Other Precautions Fall precautions Other Comments Comments Pt in recliner finishing breakfast when PT arrived, agreeable to therapy. VS at r est in seated: BP 124/69 HR 82 SpO2 95% on 3.5L, pain 8/10 with meds provided by RN 20 min p rior. Pt assisted out of recliner; demonstrates improved LE strength and decreased retropul sivity with STS. Pt ambulated 100ft total requiring occasional standing rest breaks, then a ssisted into recliner and repositioned with pillows for comfort. VS post-activity in seated : HR 85 SpO2 95% on 3.5L NC BP 120/54, pain unchanged. Pt resting comfortably with family present, call light and needs in reach when PT left. Cognition Overall Cognitive Status WFL Orientation Level Oriented Bed Mobility Scooting Verbal instruction;Standby assist Transfers Sit to/from Stand Minimal assist (steadying/contact guard) Mobility Ambulation Assistance Minimal assist;X2 (2nd person for lines ) Maximal Ambulation Distance (feet) 50ft x 2 Total Ambulation Distance (feet) 100ft Distance limited by? Patient's ability Pattern Alternating;Decreased michelle;Right swing foot doesn't pass stance foot;Left swing foot doesn't pass stance foot;Wide base Assistive Device Other (Comment) ([facility] on W/C) Modalities Other Therapy Ongoing pt/fam ed on sternal precautions and safety during mobility. Activity Tolerance Activity Tolerance Patient limited by pain;Patient limited by fatigue Nurse Made Aware Yes RN Brianna Plan Treatment/Interventions Continue per Primary PT POC Progress Progressing toward goals Recommendation Recommendations Defer (Anticipate home assist; will update as mobility progresses) Lila Braun ARNP - 06/17/2016 6:47 AM PDTFormatting of this note might be different from the bert laila. Progress Notes by ASHU Altamirano at 06/17/1647 Author: ASHU Altamirano Service: Cardiac, Thoracic, and Vascular Surgery [place] Type: Advanced Registered Nurse Practitioner Filed: 06/17/1610 Date of Service: 06/17/16646 Status: Attested Software Packager: ASHU Altamirano (Advanced Registered Nurse Practitioner) Cosigner: Abdelrahman Coles MD at 06/17/16 1001 Attestation signed by Abdelrahman Coles MD at 06/17/16 1001 (Updated) I have personally seen the patient and reviewed the above note and agree with the assessmen t and plan with the following additions. Large man with history of HUNTER. Developed hypercarbic respiratory insufficiency with pCO2 6 7. We were able to get him to tolerate BiPAP by giving a bit of sedation, but I was concern ed he was failing and might need reintubation. He was able to "get by" and by 4 AM pCO2 had improved to 57. This AM sitting up in chair he has rapid resp rate and shallow breathing, but pCO2 after being up a while is better at 46. I would like to d/c the chest tubes (even though more serous drainage than I'd like) to try and help him breathe better. New issue is post op renal insufficiency. Creat 1.2 -> 1.7. Continue to monitor, avoid ne phrotoxins etc. Electronically signed by: Abdelrahman Coles M.D. CardioThoracic Surgery [facility] 06/17/2016, 9:52 AM - [facility] Cardiothoracic Surgery Progress Note Date/Time:06/17/2016 6:49 AM Provider: ASHU Altamirano Hospital Day: LOS: 3 days Surgery/Procedure: Post-Op Day: 2 Days Post-Op S/P CABG X 3 + Endoscopic Vein [place] (RGSV) Room: [address] [place] [address] PROBLEM LIST Principal Problem: NSTEMI (non-ST elevation myocardial infarction) ([facility]) Active Problems: CAD (coronary artery disease), [place] coronary artery IDDM HUNTER SUBJECTIVE: Hospital Timeline: 06/14: Admission 06/15: CABG x3, R-EVH 06/16: ICU: Extubated @0400, overnight hypoxemia/hypercarbia - BiPAP, diuresis 06/17:ICU: 4-6L NC, diuresis, Shields out Patient Summary Overnight: - HD stable, NSR, on Jesus @30 this AM (on/off Jesus, BP dips when getting OOB) -On 6L NC this AM, shallow/tachy breathing; had become increasingly hypoxic overnight, was almost intubated, but placed on BiPAP and responded well overall (ABGs improving) - Getting up to commode this AM, c/o mild-moderate pain - UOP 575ml overnight, 900ml for 24h - CT 280ml out overnight, 520ml for 24h OBJECTIVE: Current weight: Weight: 137.2 kg (302 lb 7.5 oz) Admission weight: Weight: 132 kg (291 lb 0.1 oz) Vital Signs: BP 112/57 mmHg | Pulse 80 | Temp(Src) 99 F (37.2 C) (Bladder) | Resp 25 | Ht 1.753 m (5 ' 9") | Wt 137.2 kg (302 lb 7.5 oz) | BMI 44.65 kg/m2 | SpO2 96% 24h: Temp: [98.1 F (36.7 C)-99.3 F (37.4 C)] 99.3 F (37.4 C) Heart Rate: [72-84] 82 Resp: [20-36] 26 BP: (92-135)/(45-64) 117/56 mmHg Arterial Line BP: (93-153)/(48-65) 153/52 mmHg FiO2 : [30 %-35 %] 35 % Intake/Output Summary (Last 24 hours) at 06/17/16 0649 Last data filed at 06/17/16 0600 Gross per 24 hour Intake 4769.3 ml Output 1423 ml Net 3346.3 ml 06/16 0700 - 06/17 0659 In: 4769.3 [P.O.:980; I.V.:2789.3] Out: 1423 [Urine:903] Physical Exam: GENERAL: A&O x 3, in no acute distress. NEURO: PERRLA, EOMI; no facial asymmetry, speech normal and non pressured. Normal ROM. GCS: 15 HEENT: Sclerae clear, nonicteric; Oral Mucosa moist and pink. NECK: No JVD noted, carotid upstrokes brisk without bruits. No thyromegaly. HEART: RRR w/normal S1/S2. No murmur, rub, heave, or gallop noted. LUNGS: Lungs are clear to auscultation but distant without wheezing, crackles, or rhonchi. Dim bases ABDOMEN: Soft, nondistended, nontender. EXTREMITIES: Mild generalized and +2 BLE edema (R>L); Bilateral radial, dorsalis pedis, and posterior tibialis pulses moderate. No clubbing or cyanosis noted. SKIN: Midsternal and RLE dressings clean, dry, and intact. No erythema, edema/inflammation , discharge, or warmth noted around the incision site. No rash or mottling; No evidence of s kin breakdown over the occiput, scapulae, elbows, sacrum or heels DATA: Scheduled Medications aspirin 324 mg Per NG tube Nightly Or aspirin 325 mg Oral Nightly Or aspirin 300 mg Rectal Nightly atorvastatin 80 mg Oral Nightly cholecalciferol 2,000 Units Oral Daily cyanocobalamin 500 mcg Oral Daily docusate sodium 100 mg Oral BID famotidine 20 mg Oral BID Or famotidine 20 mg Intravenous BID hydrophilic ointment 120 g Topical Daily insulin detemir 19 Units Subcutaneous Nightly insulin lispro (human) 1-7 Units Subcutaneous Nightly insulin lispro (human) 2-14 Units Subcutaneous TID AC insulin lispro (human) 5 Units Subcutaneous TID AC magnesium hydroxide 30 mL Oral Daily metoprolol 12.5 mg Oral BID sodium phosphate 1 enema Rectal Once Continuous Infusions amiodarone infusion dexmedetomidine in NS Stopped (06/17/16 040) dextrose 5 % and 0.45 % NaCl 30 mL (06/16/16 0641) EPINEPHrine Stopped (06/15/162129) insulin regular 1 unit/mL 4.2 Units/hr (06/16/162144) nitroGLYCERIN in D5W Stopped (06/15/162129) norepinephrine phenylephrine 60 mcg/min (06/17/16229) sodium chloride (IV) 30 mL/hr at 06/15/162129 vasopressin Stopped (06/16/162327) PRN Medications acetaminophen OR acetaminophen OR acetaminophen, albumin human, albuterol, aluminum -magnesium hydroxide-simethicone, amiodarone IV bolus, amiodarone infusion, atropine, bisaco dyl, calcium chloride, dexmedetomidine in NS, dextrose, dextrose, dextrose, dextrose, EPINEP Hrine, hydrALAZINE, [] HYDROmorphone FOLLOWED BY HYDROmorphone, insulin regular 1 unit/mL, lactated ringers, magnesium sulfate, meperidine, nitroGLYCERIN in D5W, norepinephr ine, ondansetron, oxyCODONE OR oxyCODONE, phenylephrine, potassium chloride, vasopressin LABS: Recent Labs Lab 06/17/1635606/16/1635106/15/162127 WBC 14.08* 13.04* 18.36* RBC 2.87* 3.35* 3.40* HGB 8.5* 9.8* 9.8* HCT 25.1* 29.4* 30.1* MCV 87.5 87.7 88.3 MCH 29.5 29.3 28.9 MCHC 33.7 33.4 32.7 RDW 42.0 40.7 41.1 PLT 145* 163 175 MPV 9.5 9.4 8.3 DIFFTYPE AUTOMATED AUTOMATED MANUAL Recent Labs Lab 06/17/1635606/16/16214106/16/16183306/16/1635106/15/162127 NA 137 -- -- -- 141 -- 139 K 5.9* 5.2* 6.0* < > 5.7* < > 4.7 CL 104 -- -- -- 107 -- 108 CO2 26 -- -- -- 25 -- 23 ANIONGAP 13 -- -- -- 15 -- 13 GLUF 174* -- -- -- 230* -- 156* BUN 41* -- -- -- 29* -- 28* CREATININE 1.7* -- -- -- 1.1 -- 1.2 BCR 24 -- -- -- 26 -- 23 CA 7.6* -- -- -- 7.7* -- 7.8* EGFR 44* -- -- -- >60 -- >60 MG 2.8* -- -- -- 2.5* -- 2.5* < > = values in this interval not displayed. Imaging: X-ray chest 1 view FINDINGS: Enlarged cardiac pericardial silhouette, similar to radiographs dated 06/16/2016. Similar p osition of right internal jugular approach vascular sheath, mediastinal drain and left thora costomy tube. Low lung volumes. Pulmonary venous congestion with mild interstitial edema. Bi basilar subsegmental atelectasis. Possible trace bilateral pleural effusions. No pneumothora x. Median sternotomy wires are intact and aligned. IMPRESSION: 1. Status post median sternotomy and CABG. Cardiomegaly with pulmonary venous congestion and mild interstitial edema. 2. Small bilateral pleural effusions with bibasilar atelectasis. 3. Support apparatus is similar to radiographs dated 06/16/2016. SSMENT & PLAN: CARDIAC S/P CABG X 3 Optimized on ASA (325mg), atorvastatin (80mg), BB (metoprolol 12.5mg BID) Pacing wires in place, remove chest tubes today Continue Jesus as Required NSTEMI/STEMI: Will start Plavix POD#5 or at discharge RESPIRATORY BiPAP if needed, otherwise NC if tolerated, up to chair Encourage IS q15min while awake, aggressive pulmonary toilet Wean O2 as tolerated ABG improved ~30min after up to chair w/4-6L NC: 7.31/46/97/23 CPAP at night for HUNTER /RENAL Shields in place, will remove today Continue strict I/O, daily weights 40mg lasix IVP for diuresis (post-op fluid overload), monitor 'lytes ENDO Continue Endotool Until Eating adequately; Transition to SS + LA Insulin when ready Increase ambulation as tolerated, PT/OT CM consulted for discharge planning Disposition: Continue ICU care d/t guarded resp status The patient has been seen and the plan has been discussed with the attending provider, Dr.S sanford. Lilayelena Bear, LABORER [employer] 06/17/2016 onversio n Transaction, Provider Unknown - 06/16/2016 11:00 PM PDTFormatting of this note might be di fferent from the original. Nurse Progress Note by Duarte Willett RN at 06/16/162299 Author: Duarte Willett RN Service: (none) Author Type: Registered Nurse Filed: 06/17/166 Date of Service: 06/16/162299 Status: Signed Software Packager: Duarte Willett RN (Registered Nurse) Pt with increasing rate requirements of phenlyephrine to maintain SBP and MAP. Call to Ruben Price for assistance in management. See orders. onver paul Transaction, Provider Unknown - 06/16/2016 10:49 PM PDT Nurse Progress Note by Duarte Willett RN at 06/16/162248 Author: Duarte Willett RN Service: (none) Author Type: Registered Nurse Filed: 06/16/162249 Date of Service: 06/16/162248 Status: Signed Software Packager: Duarte Willett RN (Registered Nurse) EndoTool discontinued per protocol. Sofie Collier PT - 06/16/2016 2:50 PM PDTFormatting of this note might be different from the bert ginal. Therapy Progress Note by Sofie Matos PT at 06/16/16 4976 Author: Sofie Matos PT Service: (none) Author Type: Physical Therapist Filed: 06/16/16 8442 Date of Service: 06/16/161449 Status: Signed Software Packager: Sofie Carlo, PT (Physical Therapist) 06/16/16 1450 PT Last Visit PT Received On 06/16/16 Reason for Treatment Cardiac (CABG x 3) Requires PT Follow Up Yes Follow up PT Only? No Assistance Required 2 person Precautions Cardiac Precautions Sternal Other Precautions Fall precautions Other Comments Comments Pt up in recliner when PT arrived requesting to get back to bed. Family and NSG p resent. VS at rest in seated: HR 78 SpO2 90% on 5L BP 89/53 pain 7/10 in sternum with meds recently provided by RN. Pt was assisted to sitting up in recliner; c/o dizziness but stat ing he felt he could ambulate back to bed. STS with MIN A, ambulated 10ft with MIN A and W/ C BALE PILER, 2nd person to manage lines. Pt was MAX A x 2 to supine, repositioned with pillows fo r comfort and provided ice pack and cool washcloth for forehead d/t complaints of feeling ho t. Pt resting comfortably in supine with HOB elevated after mobilizing: BP 113/57 HR 76 Sp O2 92% on 5L pain unchanged. Pt demonstrating good adherance to sternal precautions through out tx. Pt resting comfortably with call light and needs in reach when PT left, family pres ent. Cognition Overall Cognitive Status WFL Orientation Level Oriented Bed Mobility Sit to Supine Max assist (BLEs into bed & trunk to lower);x 2 person Scooting Minimal assist Transfers Sit to/from Stand Minimal assist (steadying/contact guard) Mobility Ambulation Assistance Minimal assist Maximal Ambulation Distance (feet) 10ft Total Ambulation Distance (feet) 10ft Distance limited by? Patient's ability Pattern Alternating;Decreased micehlle;Right swing foot doesn't pass stance foot;Left swing foot doesn't pass stance foot Assistive Device (BHHA on W/C) Modalities Other Therapy Ongoing ed on sternal precautions, safety during mobility Activity Tolerance Activity Tolerance Patient limited by fatigue;Treatment limited secondary to medical compli cations;Patient limited by pain (Dizziness) Nurse Made Aware Yes RN Brianna Safety Devices Safety Devices in Place (Call light and needs in reach, family present) Plan Treatment/Interventions Continue per Primary PT POC Progress Progressing toward goals Recommendation Recommendations Defer Sofie Collier PT - 10:29 AM PDT Therapy Progress Note by Sofie Matos PT at 06/16/16 1029 Author: Sofie Matos PT Service: (none) Author Type: Physical Therapist Filed: 06/16/16 1322 Date of Service: 06/16/16 1029 Status: Addendum Software Packager: Sofie Matos PT (Physical Therapist) Related Notes: Original Note by Sofie Matos PT (Physical Therapist) filed at 06/16/16 132 1 06/16/16 1029 PT Last Visit PT Received On 06/16/16 Reason for Treatment Cardiac (CABG x 3) Requires PT Follow Up Yes Follow up PT Only? No PT Eval/Reassessment Date 06/16/16 Assistance Required 1 person;2 person (2nd person for lines) Precautions Cardiac Precautions Sternal Other Precautions Fall precautions Other Comments Comments Chart reviewed PT eval complete. Pt is 61 y.o. male with significant past medical history of IDDM, HTN,HUNTER seen POD 1 s/p CABG x 3. Pt supine with HOB elevated when PT arri camila, eager to get out of bed ("I'm too hot here). VS at rest in supine with HOB elevated: HR 81 SpO2 93% on 4L BP 104/57 pain 4/10 in sternum. Pt sweating profusely; RN reports she believes he had a fever which just broke. Pt was educated on sternal precautions then tremaine manasa to sitting EOB MAX A x 2; stood with only MIN A and ambulated several feet to recliner w ith W/C BALE PILER. Pt was assisted into recliner and repositioned with pillows for comfort. VS p ost-activity in seated: HR 80 SpO2 91% on 4L NC BP 93/50, pain 7/10 in sternum (RN present and aware of BP, pain, and mobility status). PT then attempting to obtain pt hx but pt very fatigued after mobilizing and intermittently nodding off. Pt's and daughter arrived w ho assisted with providing home environment and PLOF information; stating pt was MOD I with QC at communtiy level prior to admit. Pt did state "I nearly lost my right leg" d/t a wound and LE cellulits, which limits his mobility. Pt sleeping comfortably in recliner with fami ly present, call light in hand, and needs met when PT left. Cognition Overall Cognitive Status WFL Orientation Level Oriented Comments Some mild confusion at times Bed Mobility Supine to Sit Max assist (BLEs OOB & trunk to upright);x 2 person Scooting Minimal assist Transfers Sit to/from Stand Minimal assist (steadying/contact guard) Bed to/from Chair Minimal assist (steadying/contact guard) Mobility Ambulation Assistance Minimal assist;X2 (2nd person for lines) Maximal Ambulation Distance (feet) 5ft Total Ambulation Distance (feet) 5ft Distance limited by? Patient's ability Pattern Alternating;Decreased michelle;Right swing foot doesn't pass stance foot;Left swing foot doesn't pass stance foot Assistive Device (BHHA on W/C) Modalities Modalities Other therapy Other Therapy Pt/fam ed on current condition, PT POC, sternal precautions, safety during mo bility, use of call light, d/c planning. Activity Tolerance Activity Tolerance Patient limited by fatigue;Patient limited by pain Nurse Made Aware Yes RN Brianna Safety Devices Safety Devices in Place (Call light and needs in reach, family present, RN aware) Plan Treatment/Interventions Cardiac protocol PT Frequency 5-7x/wk;Twice a day;Once per day Care Duration (# of days) 7 # of days Recommendation Recommendations Defer Equipment Recommended (TBD) Barriers to Discharge Cognitive Deficits Impacting Functional [place];Physical Deficit s Impacting Functional [place];Self-care Deficits Impacting Functional [place] Recommendation Comments Pt is POD 1 s/p CABG x 3; will need ongoing mobility assessment as medical status improves to determine appropriate d/c disposition (home assist VS SNF for sub acute rehab) 06/16/16 1029 PT Last Visit PT Received On 06/16/16 Reason for Treatment Cardiac (CABG x 3) Requires PT Follow Up Yes Follow up PT Only? No PT Eval/Reassessment Date 06/16/16 Assistance Required 2 person Home Environment Type of Home Home one story (duplex) Home Exterior Layout Entry steps none Home Interior Layout Lives on main level with bedroom/bathroom Bathroom Shower/Tub Walk-in shower Bathroom Toilet Standard Bathroom Accessibility Accessible via walker Home Equipment Cane quad Additional Comments Patient nodding off while attempting to inquire about home environment Some information obtained from /daughter Prior Function Level of [place] Modified independent with functional mobility;Independent with IADLs; Independent with ADLs;Driving in community;Community distance (Limited at times by LE cellulitis ) Falls in Past Year No Lives With Spouse;Adult child(mel) 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 Vision-Basic Assessment Current Vision ("Im supposed to wear glasses but I don't") Assessment of Patient Status Assessment of Patient Status Decreased functional mobility;Decreased ADL status;Decreased endurance;Decreased level of alertness/ arousal;Precautions;Pain Prognosis Should progress with skilled therapy intervention Safety Devices Safety Devices in Place (Call light and needs in reach, family present, RN aware) Precautions Cardiac Precautions Sternal Other Precautions Fall precautions Activity Tolerance Endurance Fair Plan Treatment/Interventions Cardiac protocol PT Frequency 5-7x/wk;Twice a day;Once per day Care Duration (# of days) 7 # of days Recommendation Recommendations Defer Equipment Recommended (TBD) Barriers to Discharge Cognitive Deficits Impacting Functional [place];Physical Deficit s Impacting Functional [place];Self-care Deficits Impacting Functional [place] Recommendation Comments Pt is POD 1 s/p CABG x 3; will need ongoing mobility assessment as medical status improves to determine appropriate d/c disposition (home assist VS SNF for sub acute rehab) Abdelrahman Prasad MD - 06/16/2016 9:44 AM PDT Progress Notes by Abdelrahman Coles MD at 06/16/16943 Author: Abdelrahman Coles MD Service: Cardiac, Thoracic, and Vascular Surgery Author Type: Physician Filed: 06/16/16 6105 Date of Service: 06/16/16943 Status: Addendum Software Packager: Abdelrahman Coles MD (Physician) Related Notes: Original Note by Jacob Price PA-C (Physician Filler Shaker - Certified) filed at 06/16/16 1018 [facility] Cardiothoracic Surgery Progress Note Date/Time:06/16/2016 9:45 AM Provider: Jacob Price PA-C Hospital Day: LOS: 2 days Surgery/Procedure: Post-Op Day: 1 Day Post-Op S/P CABG X 3 + Endoscopic Vein [place] Room: [address] [place] [address] PROBLEM LIST Principal Problem: NSTEMI (non-ST elevation myocardial infarction) ([facility]) Active Problems: CAD (coronary artery disease), [place] coronary artery IDDM HUNTER SUBJECTIVE: Hospital Timeline: Admission - 06/14/16 CABG X 3 - 06/15/16 Extubated - 06/16/16 @0400 Patient Summary Overnight: - HD stable, NSR, on Neosynephrine drip @30-70mcg with somewhat labile BP at this point. -O2 @ 4 L NC, no SOB - Has not been Up to chair, C/o mild-moderate pain - UOP 2211ml overnight - CT 230ml out overnight OBJECTIVE: Current weight: Weight: 131 kg (288 lb 12.8 oz) Admission weight: Weight: 132 kg (291 lb 0.1 oz) Vital Signs: BP 97/54 mmHg | Pulse 77 | Temp(Src) 100.4 F (38 C) (Bladder) | Resp 28 | Ht 1.753 m (5 ' 9") | Wt 131 kg (288 lb 12.8 oz) | BMI 42.63 kg/m2 | SpO2 95% 24h: Intake/Output Summary (Last 24 hours) at 06/16/16 0945 Last data filed at 06/16/16 0700 Gross per 24 hour Intake 5959 ml Output 2954 ml Net 3005 ml 06/15 0700 - 06/16 0659 In: 5959 [I.V.:5499] Out: 3322 [Urine:3022] Physical Exam: GENERAL: A&O x 3, in no acute distress. NEURO: PERRLA, EOMI; no facial asymmetry, speech normal and non pressured. Normal ROM. GCS: 15 HEENT: Sclerae clear, nonicteric; Oral Mucosa moist and pink. NECK: No JVD noted, carotid upstrokes brisk without bruits. No thyromegaly. HEART: RRR w/normal S1/S2. No murmur, rub, heave, or gallop noted. LUNGS: Lungs are clear to auscultation but distant without wheezing, crackles, or rhonchi. ABDOMEN: Soft, nondistended, nontender. EXTREMITIES: Mild edema; Bilateral radial, dorsalis pedis, and posterior tibialis pulses mo derate. No clubbing or cyanosis noted. SKIN: incisions/dressings clean, dry, and intact. No erythema, edema/inflammation, dischar ge, or warmth noted around the incision site. No rash or mottling; No evidence of skin break down over the occiput, scapulae, elbows, sacrum or heels DATA: Scheduled Medications albuterol 6 puff Ventilator Q4H aspirin 324 mg Per NG tube Nightly Or aspirin 325 mg Oral Nightly Or aspirin 300 mg Rectal Nightly atorvastatin 80 mg Oral Nightly [START ON 06/17/2016] bisacodyl 20 mg Rectal Once ceFAZolin 2 g Intravenous Q8H cholecalciferol 2,000 Units Oral Daily cyanocobalamin 500 mcg Oral Daily docusate sodium 100 mg Oral BID famotidine 20 mg Oral BID Or famotidine 20 mg Intravenous BID hydrophilic ointment 120 g Topical Daily magnesium hydroxide 30 mL Oral Daily metoprolol 12.5 mg Oral BID [START ON 06/17/2016] sodium phosphate 1 enema Rectal Once Continuous Infusions amiodarone infusion dexmedetomidine in NS Stopped (06/16/16 0500) dextrose 5 % and 0.45 % NaCl 30 mL (06/16/16 0641) EPINEPHrine Stopped (06/15/162129) insulin regular 1 unit/mL 1.1 Units/hr (06/16/16 0510) nitroGLYCERIN in D5W Stopped (06/15/162129) norepinephrine phenylephrine 25 mcg/min (06/16/16 0026) sodium chloride (IV) 30 mL/hr at 06/15/162129 vasopressin PRN Medications acetaminophen OR acetaminophen OR acetaminophen, albumin human, albuterol, aluminum -magnesium hydroxide-simethicone, amiodarone IV bolus, amiodarone infusion, atropine, bisaco dyl, calcium chloride, dexmedetomidine in NS, dextrose, dextrose, EPINEPHrine, hydrALAZINE, [] HYDROmorphone FOLLOWED BY HYDROmorphone, insulin regular 1 unit/mL, lactated r ingers, magnesium sulfate, meperidine, nitroGLYCERIN in D5W, norepinephrine, ondansetron, ox yCODONE OR oxyCODONE, phenylephrine, potassium chloride, vasopressin LABS: Recent Labs Lab 06/16/1635106/15/16212706/15/16194706/15/16 0721 WBC 13.04* 18.36* -- -- 9.69 RBC 3.35* 3.40* -- -- 4.49 HGB 9.8* 9.8* 8.8* < > 12.9* HCT 29.4* 30.1* 26* < > 39.0 MCV 87.7 88.3 -- -- 87.0 MCH 29.3 28.9 -- -- 28.7 MCHC 33.4 32.7 -- -- 33.0 RDW 40.7 41.1 -- -- 40.7 PLT 163 175 -- -- 206 MPV 9.4 8.3 -- -- 9.0 DIFFTYPE AUTOMATED MANUAL -- -- AUTOMATED < > = values in this interval not displayed. Recent Labs Lab 06/16/16 0911 06/16/1635106/16/1613506/15/16212706/15/16 0721 NA -- 141 -- 139 -- 137 K 5.1* 5.7* 5.6* 4.7 < > 4.5 CL -- 107 -- 108 -- 100 CO2 -- 25 -- 23 -- 31 ANIONGAP -- 15 -- 13 -- 10 GLUF -- 230* -- 156* -- 92 BUN -- 29* -- 28* -- 30* CREATININE -- 1.1 -- 1.2 -- 0.93 BCR -- 26 -- 23 -- 32 CA -- 7.7* -- 7.8* -- 8.7 EGFR -- >60 -- >60 -- >60 MG -- 2.5* -- 2.5* -- 2.3 < > = values in this interval not displayed. Imaging: TR CABALLERO XR CHEST 1 VIEW 06/16/2016 5:53 AM History: 61 years. Male. Critical care unit patient evaluate heart, tubes and lines. Technique: AP supine portable view of the chest at 0530 hours. Compared to 2120 hours last evening. Findings: Is been interval extubation and removal of the nasogastric tube. The left pleural drain is unchanged in position. The mediastinal drain is not well seen due to underpenetrat ion but is thought to be present. Cardiac size is mildly generous but unchanged. Normal pulm onary vascular pattern. 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 Persistent left basilar atelectasis. IMPRESSION: 1. Life-support devices as described above. 2. Left basilar atelectasis SSMENT & PLAN: CARDIAC S/P CABG X 3 Optimized on ASA (325mg), atorvastatin (80mg), BB (metoprolol 12.5mg BID) Chest tubes and pacing wires Continue Jesus as Required; May require Volume Challenge NSTEMI/STEMI: Will start Plavix POD#5 or at discharge RESPIRATORY Encourage IS q15min while awake, aggressive pulmonary toilet Wean O2 as tolerated /RENAL Shields in place, will remove POD#2 Continue strict I/O, daily weights ENDO Continue Endotool Until Eating adequately; Transition to SS + LA Insulin when ready. Increase ambulation as tolerated, PT/OT CM consulted for discharge planning Disposition: CaCl2 Keep in Unit Today Close Eye on BP & Volume Status Nocturnal CPAP For HUNTER To Cardiac Floor Soon if Stable. The patient has been seen and the plan has been discussed with the attending provider, Dr.S sanford. Jacob Price PA-C 06/16/2016 I have personally seen the patient and reviewed the above note and agree with the assessmen t and plan with the following additions. Looks good. Still requiring a little Jesus. Mobilization and pulmonary toilet will be challenges. Abdelrahman Coles M.D. CardioThoracic Surgery onversion Transacti on, Provider Unknown - 06/16/2016 5:52 AM PDTFormatting of this note might be different fro m the original. Progress Notes by Boy Mcgee RRT at 06/16/16 0552 Author: Boy Mcgee RRT Service: (none) Author Type: Registered Respiratory Therapis t Filed: 06/16/16551 Date of Service: 06/16/16551 Status: Signed Software Packager: Boy Mcgee, DONTE (Registered Respiratory Therapist) Pt extubated to CPAP without difficulty. onver paul Transaction, Provider Unknown - 06/16/2016 4:29 AM PDT Nurse Progress Note by Duarte Willett RN at 06/16/16428 Author: Duarte Willett RN Service: (none) Author Type: Registered Nurse Filed: 06/16/16431 Date of Service: 06/16/16428 Status: Signed Software Packager: Duarte Willett RN (Registered Nurse) Pt extubated to CPAP without difficulty. Snoring noted even on CPAP. Current Settings are : 30% Fi02, RR 24, VT 410, 10/10. onver paul Transaction, Provider Unknown - 06/15/2016 10:35 PM PDT Progress Notes by Joey Thomson RPH at 06/15/162234 Author: Joey Thomson RPH Service: (none) Author Type: Pharmacist Filed: 06/15/162234 Date of Service: 06/15/162234 Status: Signed Software Packager: Joey Thomson RPH (Pharmacist) Note ccl 85.6ml/min meds reviewed Pharmacy will follow c 2235 onver paul Transaction, Provider Unknown - 06/15/2016 7:46 PM PDT Progress Notes by Manish Jones at 06/15/161945 Author: Manish Jones Service: (none) Author Type: Wic Site Coordinator Filed: 06/15/161949 Date of Service: 06/15/161945 Status: Signed Software Packager: Manish Jones (Wic Site Coordinator) Introductory visit following handoff from outgoing agricultural scientist, followed later by on and off p ump reports, delivered when received from CVOR to Ejnniffer and dtr Rosario who are actively supported by other family/friends. Volumn of other waiting area visitors in main 10th lobby and famikly room compelled this family to seek another waiting area. I located them in 10th floor corner family room. Informed INTERNAL MEDICINE DOCTOR of this info to convey to surgeon. Raisa Mayen CC onver paul Transaction, Provider Unknown - 06/15/2016 12:13 PM PDT Case Management by Kiana Russell RN at 06/15/16 1213 Author: Kiana Russell RN Service: (none) Author Type: Registered Nurse Filed: 06/15/167 Date of Service: 06/15/161212 Status: Signed Software Packager: Kiana Russell RN (Registered Nurse) 06/15/16 1200 Discharge Planning Evaluation Admitting Diagnosis chest pain Readmission No Living Arrangements Spouse/significant other Support Systems Spouse/significant other Type of Residence Private residence Independent with ADL's Yes Independent with Mobility No-comment Home Care Services No Caregiver after Discharge No Mental Status Oriented Prior functional status independent Resources Financial concerns No Transportation issues No Patient/Family concerns No Prescription Plan Yes Name of Pharmacy [facility] Previous home health equipment No Vascular access device No Anticipated Disposition Facility Type Home Met with pt and spouse jenniffer and discussed discharge planning, Pt is a 61 y.o., male. Pt s tates he lives with spouse. Pt is independent with his ADL's, uses cane frequently. No home O2, no HD, no anticoagulants. Pt is a member of [employer] [place]. Pt states he wants to retu rn home after CABG as he will have 24/ family support. Patient's PCP is:Hinduism?? Pt doesn't remember last name for PCP/[facility] Cli brittnee Patient's insurance:[employer] Coverage concerns: no Medication coverage/concerns: no [facility] clinic Community resources utilized / needed: tbd Assistance in transportation: tbd Identification of any specific education / training: tbd Barriers to Discharge / Alternative housing needed: tbd Anticipated DCP: tbd Mary Russell, docume nted in this encounter Consult Notes Conversion Transaction, Provider Unknown - 06/20/2016 2:11 PM PDTFormatting of this note m ight be different from the original. Consults by Lidia Fernández RD, ANTELMO at 06/20/16 1411 Author: Lidia Fernández RD, ANTELMO Service: (none) Author Type: Clinical Rehabilitation Coordinator Filed: 06/20/16 1419 Date of Service: 06/20/161410 Status: Signed Software Packager: Lidia Fernández RD, CDE (Clinical Rehabilitation Coordinator) Consult Orders: 1. Clinical Rehabilitation Coordinator Consult [[id number]] ordered by ASHU Altamirano at 6 1030 Met with pt and spouse. Pt reports he's had diabetes for 5 years. At home has been taking : 50 units of Lantus am and pm. Takes 22 units of Novolog with meals and also takes metfor min. Spouse reports pt is faithful in taking his insulin. Pt states he checks his blood masters gar "at least twice a day". They both report they have had diabetes education and do not plascencia ve questions about carbohydrates or meals and do not want further diabetes information. Reviewed HbA1c of 8.8, pt reports blood sugars have been high lately. Pt was very tired, had a hard time staying awake. States he is eating about 50% of what he normally would eat, that "nothing tastes good". Elevated blood sugars here. 9 units of correctional scale insulin yesterday. Recommend: In crease Levemir to 15 units bid, increase routine Humalog with meals to 7 units. Will follow for blood sugars. Lidia Fernández RD, MPH, CDE, Clinical Rehabilitation Coordinator 06/20/2016 2:17 PM Med King MD - 06/17/2016 6:39 AM PDT Consults by Med Alfonso MD at 06/17/1639 Author: Med Alfonso MD Service: Cryptological Technician Author Type: Physician Filed: 06/17/16 0716 Date of Service: 06/17/16638 Status: Signed Software Packager: Med Alfonso MD (Physician) [facility] Service: Cryptological Technician Progress Note Tr Caballero 61 y.o. Hospital Day: LOS: 3 days Post-Op Day: 2 Days Post-Op Treatment Team: Admitting Provider: Kendall Morales MD SUBJECTIVE PT had cabg done 2 days ago. Had dsypnea; respiratory failure.. Hypoxemia and hypercarbia; low BP and AMS. Multiple evals done; vent NIPPV placed and titrated; ABG reviewed multiple times. And progr ess noted. Hospital Timeline: Admission - 06/14/16 CABG X 3 - 06/15/16 S/P CABG X 3 + Endoscopic Vein [place] Extubated - 06/16/16 @0400 Patient Summary Overnight: - HD stable, NSR, on Neosynephrine drip @30-70mcg with somewhat labile BP at this point. -O2 @ 4 L NC, no SOB - Has not been Up to chair, C/o mild-moderate pain - UOP 2211ml overnight - CT 230ml out overnight OBJECTIVE: Current weight: Weight: 137.2 kg (302 lb 7.5 oz) Admission weight: Weight: 132 kg (291 lb 0.1 oz) PAST MEDICAL HISTORY: Past Medical History Diagnosis Date Type 2 diabetes mellitus treated with insulin ([facility]) Essential hypertension HUNTER (obstructive sleep apnea) CAD (coronary artery disease) NSTEMI (non-ST elevation myocardial infarction) ([facility]) Hypercholesteremia Neuropathy Bulging lumbar disc Morbid obesity with BMI of 40.0-44.9, adult ([facility]) PAST SURGICAL HISTORY: Past Surgical History Procedure Laterality Date Scrotal surgery Hernia repair Vasectomy MEDICATION ALLERGIES: No Known Allergies MEDICATIONS PRIOR TO ADMISSION: Prescriptions prior to admission Medication Sig Dispense Refill Last Dose aspirin 81 MG tablet Take 81 mg by mouth daily. 06/14/2016 Cholecalciferol 5000 UNITS capsule Take 5,000 Units by mouth daily. 06/14/2016 cyanocobalamin (VITAMIN B-12) 500 MCG tablet Take 500 mcg by mouth daily. 06/14/2016 hydrophilic ointment Apply 120 g topically daily. 06/14/2016 insulin aspart (NOVOLOG) 100 UNIT/ML injection Inject 22 Units into the skin 3 (three) times daily before meals. 06/14/2016 insulin glargine (LANTUS) 100 UNIT/ML injection Inject 50 Units into the skin 2 (two) t imes daily. Indications: Type 2 Diabetes 06/14/2016 at 0800 lisinopril (ZESTRIL) 40 MG tablet Take 40 mg by mouth daily. 06/14/2016 at Unknown ti me metFORMIN (GLUCOPHAGE) 1000 MG tablet Take 1,000 mg by mouth 2 (two) times daily with m eals. Indications: Type 2 Diabetes 06/14/2016 rosuvastatin (CRESTOR) 20 MG tablet Take 20 mg by mouth nightly. 06/13/2016 Scheduled Medications aspirin 324 mg Per NG tube Nightly Or aspirin 325 mg Oral Nightly Or aspirin 300 mg Rectal Nightly atorvastatin 80 mg Oral Nightly cholecalciferol 2,000 Units Oral Daily cyanocobalamin 500 mcg Oral Daily docusate sodium 100 mg Oral BID famotidine 20 mg Oral BID Or famotidine 20 mg Intravenous BID hydrophilic ointment 120 g Topical Daily insulin detemir 19 Units Subcutaneous Nightly insulin lispro (human) 1-7 Units Subcutaneous Nightly insulin lispro (human) 2-14 Units Subcutaneous TID AC insulin lispro (human) 5 Units Subcutaneous TID AC magnesium hydroxide 30 mL Oral Daily metoprolol 12.5 mg Oral BID sodium phosphate 1 enema Rectal Once Continuous Infusions amiodarone infusion dexmedetomidine in NS Stopped (06/17/16 0401) dextrose 5 % and 0.45 % NaCl 30 mL (06/16/16 0641) EPINEPHrine Stopped (06/15/162129) insulin regular 1 unit/mL 4.2 Units/hr (06/16/162144) nitroGLYCERIN in D5W Stopped (06/15/162129) norepinephrine phenylephrine 60 mcg/min (06/17/16 0230) sodium chloride (IV) 30 mL/hr at 06/15/162129 vasopressin Stopped (06/16/162327) PRN Medications acetaminophen OR acetaminophen OR acetaminophen, albumin human, alb uterol, aluminum-magnesium hydroxide-simethicone, amiodarone IV bolus, amiodarone infusion, atropine, bisacodyl, calcium chloride, dexmedetomidine in NS, dextrose, dextrose, dextrose, dextrose, EPINEPHrine, hydrALAZINE, [] HYDROmorphone FOLLOWED BY HYDROmorphone, i nsulin regular 1 unit/mL, lactated ringers, magnesium sulfate, meperidine, nitroGLYCERIN in D5W, norepinephrine, ondansetron, oxyCODONE OR oxyCODONE, phenylephrine, potassium chlor chelsey, vasopressin OBJECTIVE Vital Signs: BP 112/57 mmHg | Pulse 80 | Temp(Src) 99 F (37.2 C) (Bladder) | Resp 25 | Ht 1.753 m (5 ' 9") | Wt 137.2 kg (302 lb 7.5 oz) | BMI 44.65 kg/m2 | SpO2 96% Physical Examination GEN: Awake, alert, oriented x3, obese; absent neck; struggling to breathe NEURO: PERRLA, EOMI, no facial asymmetry, speech normal, moves all extremities well; tone a bout major muscle groups appear normal. HEENT: sclerae clear, nonicteric, oral mmm, pink, no exudates NECK: supple, trachea midline HEART: RRR, SSM no rub or gallop LUNGS: clear b/l, Decreased air movt at bases. no wheezing, crackles or rhonchi ABD: soft, distended and obese, nontender to palpation, no masses; limited palpation.. EXTR: no edema, clubbing or cyanosis SKIN: warm, dry, no rash or mottling; no e/o skin breakdown over the occiput, scapulae, elb ows, sacrum or heels DATA CBC: Lab Results Component Value Date WBC 14.08* 06/17/2016 RBC 2.87* 06/17/2016 HGB 8.5* 06/17/2016 HGB 8.8* 06/15/2016 HCT 25.1* 06/17/2016 HCT 26* 06/15/2016 MCV 87.5 06/17/2016 MCH 29.5 06/17/2016 MCHC 33.7 06/17/2016 RDW 42.0 06/17/2016 PLT 145* 06/17/2016 MPV 9.5 06/17/2016 DIFFTYPE AUTOMATED 06/17/2016 CMP: Lab Results Component Value Date NA 137 06/17/2016 K 5.9* 06/17/2016 K 5.3* 06/15/2016 CL 104 06/17/2016 CO2 26 06/17/2016 ANIONGAP 13 06/17/2016 GLUF 174* 06/17/2016 BUN 41* 06/17/2016 CREATININE 1.7* 06/17/2016 BCR 24 06/17/2016 CA 7.6* 06/17/2016 PROT 6.9 06/15/2016 ALB 3.3 06/15/2016 GLOB 3.6 06/15/2016 BILITOT 0.5 06/15/2016 ALP 83 06/15/2016 AST 13 06/15/2016 ALT 23 06/15/2016 EGFR 44* 06/17/2016 BMP: Lab Results Component Value Date NA 137 06/17/2016 K 5.9* 06/17/2016 K 5.3* 06/15/2016 CL 104 06/17/2016 CO2 26 06/17/2016 ANIONGAP 13 06/17/2016 GLUF 174* 06/17/2016 BUN 41* 06/17/2016 CREATININE 1.7* 06/17/2016 BCR 24 06/17/2016 CA 7.6* 06/17/2016 EGFR 44* 06/17/2016 Ammonia: No results found for: AMMONIA Magnesium: Lab Results Component Value Date MG 2.8* 06/17/2016 Phosphorus: No results found for: PHOS LDH: No results found for: LDH PT/INR: Lab Results Component Value Date INR 1.2 06/15/2016 PTT: Lab Results Component Value Date APTT 26 06/15/2016 [APTT} CPK: No results found for: CKTOTAL ABG: Lab Results Component Value Date POCPH 7.243* 06/17/2016 POCPCO 57* 06/17/2016 POCPO2 91 06/17/2016 POCHCO 24 06/17/2016 POCTCO2 26 06/17/2016 POCBD 3* 06/17/2016 BEART 1 06/16/2016 POCSO2 95 06/17/2016 POCCMT Tidal Volume = 20 06/17/2016 HgBA1c: Lab Results Component Value Date HGBA1C 8.8* 06/16/2016 LABGLYC 206 06/16/2016 TSH: No results found for: TSH TR CABALLERO XR CHEST 1 VIEW 06/16/2016 5:53 AM History: 61 years. Male. Critical care unit patient evaluate heart, tubes and lines. Technique: AP supine portable view of the chest at 0530 hours. Compared to 2120 hours last evening. Findings: Is been interval extubation and removal of the nasogastric tube. The left pleural drain is unchanged in position. The mediastinal drain is not well seen due to underpenetrat ion but is thought to be present. Cardiac size is mildly generous but unchanged. Normal pulm onary vascular pattern. 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 Persistent left basilar atelectasis. IMPRESSION: 1. Life-support devices as described above. 2. Left basilar atelectasis LEM LIST Principal Problem: NSTEMI (non-ST elevation myocardial infarction) ([facility]) Active Problems: CAD (coronary artery disease), [place] coronary artery Respiratory failure; sleep apnea; drug dose. ASSESSMENT & PLAN NEURO: Monitor neuro signs; AMS better when ventilates well. CARDIOVASCULAR: Keep MAP > 65; hold off on diuresis for now.. As he is hypotensive. Pressor s as needed. No sign of infection for now. CTVS care as per PULMONARY: Put on BiPAP. Titrated to get adequate volumes of about 400-600 and back up rat e 20; Many evals done; followed with repeated ABG's to document slow but consistent improvemen t Pt avoided intubation. Apparently a very tough intubation case - both by history and by exam Will continue empiric duonebs for now. Getting him out of bed and weight off the lungs will help in improving lung volume Pt was explained the meaning of sleep apnea and the need to treat this .. HE DOES NOT plascencia ve a CPAP device at home. GI: need to contiue PPI/ pepcid - antireflux measures. RENAL: monitor lytes and replete as pertinent. INFECTIOUS DISEASE: Doubt PNA; but would not hesitate to start ABX early and pre-emptively HEME: Monitor H& H ; no urgent need to transfuse ENDOCRINE: Continue Endotool Until Eating adequately; Transition to SS + LA Insulin when r cole. MUSCULOSKELETAL: mobilize. PROPHYLAXIS: Stress ulcer prophylaxis: ppi DVT prophylaxis: Lovenox VAP bundle: chlorhexadine oral care, HOB >30 degrees. Keep in Unit Today Disposition: ICU Code Status: Full Code *Please bill 60 minutes of critical care time spent evaluating the patient, reviewing the d lucius and formulating a plan exclusive of all other procedures. Med Alfonso MD 06/17/2016 6:40 AM Kendall Morgan Jr., MD - 06/14/2016 9:18 PM PDT Consult* by Kendall Morales MD at 06/14/162117 Author: Kendall Morales MD Service: (none) Author Type: Physician Filed: 06/14/162132 Date of Service: 06/14/162117 Status: Signed Software Packager: Kendall Morales MD (Physician) [facility] Service: Cardiothoracic Surgery Initial Consult Note Date of Admission: 06/14/2016 Reason for Consultation: Evaluation for surgical revascularization Requesting Physician: Dr. Ochoa, Cardiology History Obtained From: patient CHIEF COMPLAINT: Angina HISTORY OF PRESENT ILLNESS The patient is a 61 y.o. male with significant past medical history of IDDM, HTN,HUNTER who pr esented in [place] with a 4 day hisitory of anginal symptoms. He was evaluated at [facility] in [place] and was diagnosed with a NSTEMI. He underwent cardiac angiography. I have reviewed the films. The patient has severe coronary artery disease. We are asked to evaluate the patient for surgical revascularization. He is currently asymptomatic. REVIEW OF SYSTEMS Review of Systems Constitutional: Positive for fatigue. Negative for fever, chills and activity change. HENT: Negative for hearing loss, nosebleeds, sore throat, tinnitus and voice change. Eyes: Negative for pain, discharge, redness and visual disturbance. Respiratory: Positive for shortness of breath. Negative for cough, chest tightness and whee zing. Cardiovascular: Positive for chest pain. Negative for palpitations and leg swelling. Gastrointestinal: Negative for nausea, abdominal pain, diarrhea, constipation, blood in sto ol, abdominal distention and anal bleeding. Genitourinary: Negative for dysuria, urgency, frequency and hematuria. Musculoskeletal: Positive for gait problem. Negative for back pain, arthralgias and neck st iffness. Skin: Negative for color change, pallor and wound. Neurological: Positive for weakness. Negative for dizziness, tremors, seizures, syncope, fa cial asymmetry, speech difficulty and light-headedness. Hematological: Negative for adenopathy. Does not bruise/bleed easily. Psychiatric/Behavioral: Negative for suicidal ideas, behavioral problems, confusion, sleep disturbance and agitation. No past medical history on file. No past surgical history on file. No Known Allergies Prescriptions prior to admission Medication Sig Dispense Refill Last Dose aspirin 81 MG tablet Take 81 mg by mouth daily. 06/14/2016 Cholecalciferol 5000 UNITS capsule Take 5,000 Units by mouth daily. 06/14/2016 cyanocobalamin (VITAMIN B-12) 500 MCG tablet Take 500 mcg by mouth daily. 06/14/2016 hydrophilic ointment Apply 120 g topically daily. 06/14/2016 insulin aspart (NOVOLOG) 100 UNIT/ML injection Inject 22 Units into the skin 3 (three) times daily before meals. 06/14/2016 insulin glargine (LANTUS) 100 UNIT/ML injection Inject 50 Units into the skin 2 (two) t imes daily. Indications: Type 2 Diabetes 06/14/2016 at 0800 lisinopril (ZESTRIL) 40 MG tablet Take 40 mg by mouth daily. 06/14/2016 at Unknown ti me metFORMIN (GLUCOPHAGE) 1000 MG tablet Take 1,000 mg by mouth 2 (two) times daily with m eals. Indications: Type 2 Diabetes 06/14/2016 rosuvastatin (CRESTOR) 20 MG tablet Take 20 mg by mouth nightly. 06/13/2016 Scheduled Medications Continuous Infusions PRN Medications No family history on file. History Smoking status Not on file Smokeless tobacco Not on file PHYSICAL EXAM Vital Signs: BP 117/61 mmHg | Pulse 76 | Temp(Src) 97.4 F (36.3 C) (Oral) | Resp 20 | Ht 1.753 m (5' 9") | Wt 132 kg (291 lb 0.1 oz) | BMI 42.95 kg/m2 | SpO2 95% Temp: [97.4 F (36.3 C)] 97.4 F (36.3 C) (06/14 1949) BP: (117)/(61) 117/61 mmHg (06/14 1949) Heart Rate: [76] 76 (06/14 1949) Resp: [20] 20 (06/14 1949) SpO2: [95 %] 95 % (06/14 1949) Height: [175.3 cm (5' 9")] 175.3 cm (5' 9") (06/14 1949) Weight: [132 kg (291 lb 0.1 oz)] 132 kg (291 lb 0.1 oz) (06/14 1949) BMI (Calculated): [43.1] 43.1 (06/14 1949) Physical Exam Constitutional: He is oriented to person, place, and time. Vital signs are normal. He appea rs well-developed and well-nourished. HENT: Head: Normocephalic and atraumatic. Eyes: Conjunctivae and lids are normal. Neck: Trachea normal and normal range of motion. Neck supple. No JVD present. Cardiovascular: Normal rate and regular rhythm. Pulmonary/Chest: Effort normal and breath sounds normal. Abdomina/Gl: Soft. Obese Rash over abdomen Musculoskeletal: He exhibits no edema. Neurological: He is alert and oriented to person, place, and time. No cranial nerve deficit . Skin: Skin is warm. No cyanosis. DATA Cath:Significant LAD/RCA lesions/Moderate OM1 PROBLEM LIST Active Problems: * No active hospital problems. * RISK SCORES About the STS Risk Calculator Procedure: CAB Only Risk of Mortality: 0.636% Morbidity or Mortality: 9.647% Long Length of Stay: 3.438% Short Length of Stay: 53.614% Permanent Stroke: 0.593% Prolonged Ventilation: 5.711% DSW Infection: 0.64% Renal Failure: 2.832% Reoperation: 3.555% ASSESSMENT & PLAN 61 y.o. with 3 vessel coronary artery disease and preserved left ventricular function. He is an acceptable candidate for surgical revascularization. Risks and benefits of the proced ure including but not limited to bleeding, infection, stroke, damage to the heart, lungs kid neys and were discussed at length with the patient and his family. The patient and harriet donnelly understand the risks and wish to proceed with surgery. STS risk score was calculated an d reviewed. CABG has been tentatively scheduled for 06/15/16. Code Status: Full Code Primary Care Physician: No primary care provider on file. Thank you for allowing me to participate in the care of this patient. KENDALL MORALES MD 06/14/2016 documented in th is encounter Miscellaneous Notes Op Note - Kendall Morales Jr., MD - 06/15/2016 8:37 PM PDT Op Note signed by Kendall Morales MD at 06/16/16751 Author: Kendall Morales MD Service: (none) Author Type: Physician Filed: 06/16/16751 Date of Service: 06/15/162036 Status: Signed Software Packager: Kendall Morales MD (Physician) TR CABALLERO Date of : 1955 DATE OF SERVICE June 15, 2016 PREOPERATIVE DIAGNOSES 1. Acute myocardial infarction. 2. Severe coronary artery disease. 3. Insulin-dependent diabetes mellitus. 4. Hypertension. 5. Obstructive sleep apnea. 6. Obesity. POSTOPERATIVE DIAGNOSES 1. Acute myocardial infarction. 2. Severe coronary artery disease. 3. Insulin-dependent diabetes mellitus. 4. Hypertension. 5. Obstructive sleep apnea. 6. Obesity. PROCEDURE 1. Coronary artery bypass grafting x3 (left internal mammary artery to left anterior descen ding artery, saphenous vein graft to obtuse marginal branch, saphenous vein graft to right p osterior descending artery). 2. Endoscopic vein harvest. SURGEON Kendall Morales MD PHYSICIAN PEDIATRICIAN BENITO Oneil. ANESTHESIOLOGIST Britton Smith MD ANESTHESIA General endotracheal. INTRAVENOUS FLUIDS 2500 mL. ESTIMATED BLOOD LOSS All recycled. DRAINS 1. A #28 chest tube. 2. A #24 chest tube. INTRAOPERATIVE COMPLICATIONS None. INDICATIONS The patient is a 61-year-old white male with a history of insulin-dependent diabetes [facility] and hypertension who presented in [place] recently with a 4-day history of anginal symp toms. He was sent to [facility] in [place] and he was diagnosed with a non- ST segment elevation [place]. He underwent cardiac catheterization yesterday which showed severe 3-vessel coronary artery disease. The patient was transferred here for further care. I saw t he patient in consultation. I recommended surgical revascularization. Risks and benefits inc luding but not limited to bleeding, infection, damage to heart, lungs, kidneys, stroke, or d eath were discussed at length with the patient. He now presents for surgery. FINDINGS 1. 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 2. The greater saphenous vein was of adequate caliber, measuring approximately 3 mm in diam eter. 3. The left internal mammary artery was of adequate caliber, and had excellent flow. 4. The LAD was 1.5 mm distally. 5. The obtuse marginal branch was 1.75 mm. 6. The RPDA was 1.75 mm. DESCRIPTION OF PROCEDURE The patient was identified and taken to the operating room where he was placed supine on th e operating table. After the adequate induction of general endotracheal anesthesia, the johanna ent's neck, chest, abdomen, and lower extremities were prepped and draped in the usual steri le fashion. Preoperative antibiotics were given. Greater saphenous vein was harvested from t he right lower extremity using endoscopic techniques. All side branches were ligated with 4- 0 silk ties. A midline incision was made over the sternum and carried down to the sternal table. The daija rnum was divided in the midline. The left internal mammary artery was taken down from the le teodoro of the left subclavian vein, down to the bifurcation at the xiphoid process. The patient was then systemically heparinized. The pedicle was divided distally. There was good flow fr om the mammary artery. It was placed on a papaverine sponge. A sternal retractor was put int o place. The pericardium was opened in the midline and suspended. When the ACT had reached 400, the patient was cannulated via the distal ascending aorta and the right atrial appendage. A card ioplegia needle was placed in the proximal ascending aorta. Cardiopulmonary bypass was then instituted without difficulty. The heart decompressed. The patient's temperature was allowed to drift. The aorta was then cross clamped and the heart was arrested with 1.25 L of cold a ntegrade cardioplegia solution. Myocardial septal temperatures were measured and kept below 15 degrees. Cardioplegia was given every 15 minutes during the crossclamp period. The inferior wall was exposed. The RPDA was dissected. An arteriotomy was made and extended . Greater saphenous vein was sewn to the RPDA using a running 7-0 Prolene stitch. Vein graft was measured to length for a proximal anastomosis and divided. An aortotomy was made in the right side of the aorta and extended with an aortic punch. Proximal anastomosis was constru cted using a running 6-0 Prolene stitch. The lateral wall was exposed. The obtuse marginal branch was dissected. An arteriotomy was made and extended. Greater saphenous vein was sewn to the obtuse marginal branch using a run allison 7-0 Prolene stitch. The vein graft was measured to length for a proximal anastomosis an d divided. An aortotomy was made in the left side of the aorta and extended with an aortic p unch. Proximal anastomosis was constructed using a running 6-0 Prolene stitch. The patient w as rewarmed. The heart was elevated. The LAD was dissected distally. An arteriotomy was made and extende d. The left internal mammary artery was sewn to the LAD using a running 8-0 Prolene stitch. The pedicle was tacked to the anterior myocardium using 2 interrupted 6-0 Prolene stitches. The patient was then placed in deep Trendelenburg position, and with high suction across the aortic vent the crossclamp was removed. The heart returned to a sinus rhythm spontaneously. The distal surgical sites were inspected. Two right ventricular pacing wires were placed. W hen the patient's temperature had reached 36.5 degrees, he was weaned from cardiopulmonary b ypass without difficulty, on low-dose epinephrine. He remained hemodynamically stable. Prota mine was then given to reverse the heparin. The patient was then decannulated in the usual f ashion. All surgical sites were inspected. There was adequate hemostasis. Two small incisions were made below the main incision. A #24 right-angle chest tube was placed in the left pleural sp zeus. A #28 chest tube was placed anterior to the heart. The sternum was reapproximated with wires in the usual fashion. The subcutaneous tissues and skin were closed with running Vicry l stitches. A sterile dressing was applied to the wound. The patient tolerated the procedure well and was transferred to the ICU in stable condition. P/ P//[id number] KENDALL MORALES MD p Note - Kendall Rivera Jr., MD - 06/15/2016 8:35 PM PDTFormatting of this note might be different from t he original. Brief Op Note by Kendall Morales MD at 06/15/162034 Author: Kendall Morales MD Service: (none) Author Type: Physician Filed: 06/15/162035 Date of Service: 06/15/162034 Status: Signed Software Packager: Kendall Morales MD (Physician) [facility] Service: Cardiothoracic Surgery Brief Op Note Pre-operative Diagnosis: AMI/CAD Post-operative Diagnosis: Same Procedure(s): CABGx3/EVH Surgeon: KENDALL MORALES MD Filler Shaker(s): Mone OLIVER Anesthesia: General endotrachial anesthesia Estimated Blood Loss: Recycled Other: IV Fluids: 2500 ml Indications: See pre-operative history and physical. Findings: See note Complications: none Condition: Stable See dictated operative report for full details. KENDALL MORALES MD 06/15/2016 lan of Care - C onversion Transaction, Provider Unknown - 06/15/2016 8:06 AM PDTFormatting of this note yulissa ht be different from the original. Plan of Care by Phani Lambert RN at 06/15/16805 Author: Phani Lambert RN Service: (none) Author Type: Registered Nurse Filed: 06/15/16806 Date of Service: 06/15/16805 Status: Signed Software Packager: Phani Lambert RN (Registered Nurse) Patient has no pain at this time. Answered all questions posed by patient. No further q uestions at this time. Fluid and Electrolyte Imbalance Fluid and electrolyte balance are achieved/maintained Progressing Hemodynamic Status Patient's vitals signs are stable Progressing Pain Patient's pain/discomfort is manageable Progressing Psychosocial Needs Demonstrates ability to cope with hospitalization/illness Progressing Safety Patient will be injury free during hospitalization Progressing docume nted in this encounter Plan of Treatment Not on filedocumented as of this encounter Procedures + +--------+ + + + | Procedure Name | Priori | Date/Time | Associated Diagnosis | Comments | | | ty | | | | + +--------+ + + + | POC GLUCOSE | Routin | 06/22/2016 | | Results for this | | | e | 11:54 AM | | procedure are in the | | | | PDT | | results section. | + +--------+ + + + | POC GLUCOSE | Routin | 06/22/2016 | | Results for this | | | e | 5:29 AM | | procedure are in the | | | | PDT | | results section. | + +--------+ + + + | MAGNESIUM | Routin | 06/22/2016 | | Results for this | | | e | 4:28 AM | | procedure are in the | | | | PDT | | results section. | + +--------+ + + + | BASIC METABOLIC | Routin | 06/22/2016 | | Results for this | | PANEL | e | 4:28 AM | | procedure are in the | | | | PDT | | results section. | + +--------+ + + + | POC GLUCOSE | Routin | 06/21/2016 | | Results for this | | | e | 9:09 PM | | procedure are in the | | | | PDT | | results section. | + +--------+ + + + | POC GLUCOSE | Routin | 06/21/2016 | | Results for this | | | e | 4:35 PM | | procedure are in the | | | | PDT | | results section. | + +--------+ + + + | POC GLUCOSE | Routin | 06/21/2016 | | Results for this | | | e | 11:21 AM | | procedure are in the | | | | PDT | | results section. | + +--------+ + + + | POC GLUCOSE | Routin | 06/21/2016 | | Results for this | | | e | 5:19 AM | | procedure are in the | | | | PDT | | results section. | + +--------+ + + + | POC GLUCOSE | Routin | 06/21/2016 | | Results for this | | | e | 4:18 AM | | procedure are in the | | | | PDT | | results section. | + +--------+ + + + | EXTERNAL LAB: CBC | Routin | 06/21/2016 | | Results for this | | | e | 3:40 AM | | procedure are in the | | | | PDT | | results section. | + +--------+ + + + | MAGNESIUM | Routin | 06/21/2016 | | Results for this | | | e | 3:40 AM | | procedure are in the | | | | PDT | | results section. | + +--------+ + + + | BASIC METABOLIC | Routin | 06/21/2016 | | Results for this | | PANEL | e | 3:40 AM | | procedure are in the | | | | PDT | | results section. | + +--------+ + + + | POC GLUCOSE | Routin | 06/20/2016 | | Results for this | | | e | 9:03 PM | | procedure are in the | | | | PDT | | results section. | + +--------+ + + + | POC GLUCOSE | Routin | 06/20/2016 | | Results for this | | | e | 3:47 PM | | procedure are in the | | | | PDT | | results section. | + +--------+ + + + | POC GLUCOSE | Routin | 06/20/2016 | | Results for this | | | e | 11:59 AM | | procedure are in the | | | | PDT | | results section. | + +--------+ + + + | POC GLUCOSE | Routin | 06/20/2016 | | Results for this | | | e | 9:58 AM | | procedure are in the | | | | PDT | | results section. | + +--------+ + + + | XR CHEST 2 VIEWS | Routin | 06/20/2016 | | Results for this | | | e | 9:35 AM | | procedure are in the | | | | PDT | | results section. | + +--------+ + + + | EXTERNAL LAB: CBC | Routin | 06/20/2016 | | Results for this | | | e | 4:11 AM | | procedure are in the | | | | PDT | | results section. | + +--------+ + + + | MAGNESIUM | Routin | 06/20/2016 | | Results for this | | | e | 4:11 AM | | procedure are in the | | | | PDT | | results section. | + +--------+ + + + | BASIC METABOLIC | Routin | 06/20/2016 | | Results for this | | PANEL | e | 4:11 AM | | procedure are in the | | | | PDT | | results section. | + +--------+ + + + | POC GLUCOSE | Routin | 06/19/2016 | | Results for this | | | e | 9:41 PM | | procedure are in the | | | | PDT | | results section. | + +--------+ + + + | POC GLUCOSE | Routin | 06/19/2016 | | Results for this | | | e | 5:05 PM | | procedure are in the | | | | PDT | | results section. | + +--------+ + + + | POC GLUCOSE | Routin | 06/19/2016 | | Results for this | | | e | 11:19 AM | | procedure are in the | | | | PDT | | results section. | + +--------+ + + + | EXTERNAL LAB: CBC | Routin | 06/19/2016 | | Results for this | | | e | 6:01 AM | | procedure are in the | | | | PDT | | results section. | + +--------+ + + + | MAGNESIUM | Routin | 06/19/2016 | | Results for this | | | e | 6:01 AM | | procedure are in the | | | | PDT | | results section. | + +--------+ + + + | BASIC METABOLIC | Routin | 06/19/2016 | | Results for this | | PANEL | e | 6:01 AM | | procedure are in the | | | | PDT | | results section. | + +--------+ + + + | XR CHEST 1 VIEW | Routin | 06/19/2016 | | Results for this | | | e | 5:26 AM | | procedure are in the | | | | PDT | | results section. | + +--------+ + + + | POC GLUCOSE | Routin | 06/19/2016 | | Results for this | | | e | 5:22 AM | | procedure are in the | | | | PDT | | results section. | + +--------+ + + + | POC GLUCOSE | Routin | 06/18/2016 | | Results for this | | | e | 9:57 PM | | procedure are in the | | | | PDT | | results section. | + +--------+ + + + | POC GLUCOSE | Routin | 06/18/2016 | | Results for this | | | e | 4:36 PM | | procedure are in the | | | | PDT | | results section. | + +--------+ + + + | POC GLUCOSE | Routin | 06/18/2016 | | Results for this | | | e | 11:27 AM | | procedure are in the | | | | PDT | | results section. | + +--------+ + + + | POC GLUCOSE | Routin | 06/18/2016 | | Results for this | | | e | 6:35 AM | | procedure are in the | | | | PDT | | results section. | + +--------+ + + + | XR CHEST 1 VIEW | Routin | 06/18/2016 | | Results for this | | | e | 6:01 AM | | procedure are in the | | | | PDT | | results section. | + +--------+ + + + | EXTERNAL LAB: CBC | Routin | 06/18/2016 | | Results for this | | | e | 4:30 AM | | procedure are in the | | | | PDT | | results section. | + +--------+ + + + | MAGNESIUM | Routin | 06/18/2016 | | Results for this | | | e | 4:30 AM | | procedure are in the | | | | PDT | | results section. | + +--------+ + + + | BASIC METABOLIC | Routin | 06/18/2016 | | Results for this | | PANEL | e | 4:30 AM | | procedure are in the | | | | PDT | | results section. | + +--------+ + + + | POC GLUCOSE | Routin | 06/17/2016 | | Results for this | | | e | 9:52 PM | | procedure are in the | | | | PDT | | results section. | + +--------+ + + + | POC GLUCOSE | Routin | 06/17/2016 | | Results for this | | | e | 5:48 PM | | procedure are in the | | | | PDT | | results section. | + +--------+ + + + | POC GLUCOSE | Routin | 06/17/2016 | | Results for this | | | e | 12:41 PM | | procedure are in the | | | | PDT | | results section. | + +--------+ + + + | BASIC METABOLIC | Routin | 06/17/2016 | | Results for this | | PANEL | e | 12:38 PM | | procedure are in the | | | | PDT | | results section. | + +--------+ + + + | XR CHEST 1 VIEW | Routin | 06/17/2016 | | Results for this | | | e | 6:15 AM | | procedure are in the | | | | PDT | | results section. | + +--------+ + + + | POC GLUCOSE | Routin | 06/17/2016 | | Results for this | | | e | 6:02 AM | | procedure are in the | | | | PDT | | results section. | + +--------+ + + + | EXTERNAL LAB: CBC | Routin | 06/17/2016 | | Results for this | | | e | 3:57 AM | | procedure are in the | | | | PDT | | results section. | + +--------+ + + + | MAGNESIUM | Routin | 06/17/2016 | | Results for this | | | e | 3:57 AM | | procedure are in the | | | | PDT | | results section. | + +--------+ + + + | BASIC METABOLIC | Routin | 06/17/2016 | | Results for this | | PANEL | e | 3:57 AM | | procedure are in the | | | | PDT | | results section. | + +--------+ + + + | POC GLUCOSE | Routin | 06/17/2016 | | Results for this | | | e | 12:35 AM | | procedure are in the | | | | PDT | | results section. | + +--------+ + + + | POC GLUCOSE | Routin | 06/16/2016 | | Results for this | | | e | 10:48 PM | | procedure are in the | | | | PDT | | results section. | + +--------+ + + + | POC GLUCOSE | Routin | 06/16/2016 | | Results for this | | | e | 9:44 PM | | procedure are in the | | | | PDT | | results section. | + +--------+ + + + | POTASSIUM | Routin | 06/16/2016 | | Results for this | | | e | 9:42 PM | | procedure are in the | | | | PDT | | results section. | + +--------+ + + + | POC GLUCOSE | Routin | 06/16/2016 | | Results for this | | | e | 8:39 PM | | procedure are in the | | | | PDT | | results section. | + +--------+ + + + | POC GLUCOSE | Routin | 06/16/2016 | | Results for this | | | e | 7:36 PM | | procedure are in the | | | | PDT | | results section. | + +--------+ + + + | POC GLUCOSE | Routin | 06/16/2016 | | Results for this | | | e | 7:02 PM | | procedure are in the | | | | PDT | | results section. | + +--------+ + + + | POTASSIUM | Routin | 06/16/2016 | | Results for this | | | e | 6:34 PM | | procedure are in the | | | | PDT | | results section. | + +--------+ + + + | POC GLUCOSE | Routin | 06/16/2016 | | Results for this | | | e | 3:53 PM | | procedure are in the | | | | PDT | | results section. | + +--------+ + + + | POC GLUCOSE | Routin | 06/16/2016 | | Results for this | | | e | 1:50 PM | | procedure are in the | | | | PDT | | results section. | + +--------+ + + + | POTASSIUM | Routin | 06/16/2016 | | Results for this | | | e | 1:45 PM | | procedure are in the | | | | PDT | | results section. | + +--------+ + + + | POC GLUCOSE | Routin | 06/16/2016 | | Results for this | | | e | 12:48 PM | | procedure are in the | | | | PDT | | results section. | + +--------+ + + + | POC GLUCOSE | Routin | 06/16/2016 | | Results for this | | | e | 11:44 AM | | procedure are in the | | | | PDT | | results section. | + +--------+ + + + | POC GLUCOSE | Routin | 06/16/2016 | | Results for this | | | e | 10:37 AM | | procedure are in the | | | | PDT | | results section. | + +--------+ + + + | POC GLUCOSE | Routin | 06/16/2016 | | Results for this | | | e | 9:16 AM | | procedure are in the | | | | PDT | | results section. | + +--------+ + + + | POTASSIUM | Routin | 06/16/2016 | | Results for this | | | e | 9:11 AM | | procedure are in the | | | | PDT | | results section. | + +--------+ + + + | POC GLUCOSE | Routin | 06/16/2016 | | Results for this | | | e | 8:08 AM | | procedure are in the | | | | PDT | | results section. | + +--------+ + + + | POC GLUCOSE | Routin | 06/16/2016 | | Results for this | | | e | 7:12 AM | | procedure are in the | | | | PDT | | results section. | + +--------+ + + + | POC GLUCOSE | Routin | 06/16/2016 | | Results for this | | | e | 6:43 AM | | procedure are in the | | | | PDT | | results section. | + +--------+ + + + | XR CHEST 1 VIEW | Routin | 06/16/2016 | | Results for this | | | e | 5:53 AM | | procedure are in the | | | | PDT | | results section. | + +--------+ + + + | POC GLUCOSE | Routin | 06/16/2016 | | Results for this | | | e | 5:09 AM | | procedure are in the | | | | PDT | | results section. | + +--------+ + + + | EXTERNAL LAB: CBC | Routin | 06/16/2016 | | Results for this | | | e | 3:52 AM | | procedure are in the | | | | PDT | | results section. | + +--------+ + + + | MAGNESIUM | Routin | 06/16/2016 | | Results for this | | | e | 3:52 AM | | procedure are in the | | | | PDT | | results section. | + +--------+ + + + | HEMOGLOBIN A1C | Routin | 06/16/2016 | | Results for this | | | e | 3:52 AM | | procedure are in the | | | | PDT | | results section. | + +--------+ + + + | BASIC METABOLIC | Routin | 06/16/2016 | | Results for this | | PANEL | e | 3:52 AM | | procedure are in the | | | | PDT | | results section. | + +--------+ + + + | POC GLUCOSE | Routin | 06/16/2016 | | Results for this | | | e | 3:18 AM | | procedure are in the | | | | PDT | | results section. | + +--------+ + + + | POC GLUCOSE | Routin | 06/16/2016 | | Results for this | | | e | 2:11 AM | | procedure are in the | | | | PDT | | results section. | + +--------+ + + + | POTASSIUM | Routin | 06/16/2016 | | Results for this | | | e | 1:36 AM | | procedure are in the | | | | PDT | | results section. | + +--------+ + + + | POC GLUCOSE | Routin | 06/16/2016 | | Results for this | | | e | 1:12 AM | | procedure are in the | | | | PDT | | results section. | + +--------+ + + + | POC GLUCOSE | Routin | 06/16/2016 | | Results for this | | | e | 12:08 AM | | procedure are in the | | | | PDT | | results section. | + +--------+ + + + | POC GLUCOSE | Routin | 06/15/2016 | | Results for this | | | e | 11:31 PM | | procedure are in the | | | | PDT | | results section. | + +--------+ + + + | POC GLUCOSE | Routin | 06/15/2016 | | Results for this | | | e | 10:13 PM | | procedure are in the | | | | PDT | | results section. | + +--------+ + + + | ECG 12 LEAD | Routin | 06/15/2016 | | Results for this | | | e | 9:39 PM | | procedure are in the | | | | PDT | | results section. | + +--------+ + + + | CALCIUM, IONIZED | Routin | 06/15/2016 | | Results for this | | | e | 9:30 PM | | procedure are in the | | | | PDT | | results section. | + +--------+ + + + | EXTERNAL LAB: CBC | Routin | 06/15/2016 | | Results for this | | | e | 9:28 PM | | procedure are in the | | | | PDT | | results section. | + +--------+ + + + | PTT | Routin | 06/15/2016 | | Results for this | | | e | 9:28 PM | | procedure are in the | | | | PDT | | results section. | + +--------+ + + + | PROTIME INR | Routin | 06/15/2016 | | Results for this | | | e | 9:28 PM | | procedure are in the | | | | PDT | | results section. | + +--------+ + + + | FIBRINOGEN | Routin | 06/15/2016 | | Results for this | | | e | 9:28 PM | | procedure are in the | | | | PDT | | results section. | + +--------+ + + + | MAGNESIUM | Routin | 06/15/2016 | | Results for this | | | e | 9:28 PM | | procedure are in the | | | | PDT | | results section. | + +--------+ + + + | BASIC METABOLIC | Routin | 06/15/2016 | | Results for this | | PANEL | e | 9:28 PM | | procedure are in the | | | | PDT | | results section. | + +--------+ + + + | XR CHEST 1 VIEW | Routin | 06/15/2016 | | Results for this | | | e | 9:25 PM | | procedure are in the | | | | PDT | | results section. | + +--------+ + + + | XR CHEST 1 VIEW | Routin | 06/15/2016 | | Results for this | | | e | 9:10 PM | | procedure are in the | | | | PDT | | results section. | + +--------+ + + + | ECHO | Routin | 06/15/2016 | | Results for this | | TRANSESOPHAGEAL(HAY) | e | 8:15 PM | | procedure are in the | | - PERIOPERATIVE | | PDT | | results section. | + +--------+ + + + | JOY REAVES | Routin | 06/15/2016 | | Results for this | | ARTERIAL | e | 7:51 PM | | procedure are in the | | | | PDT | | results section. | + +--------+ + + + | MUNA SEE, | Routin | 06/15/2016 | | Results for this | | ARTERIAL | e | 7:48 PM | | procedure are in the | | | | PDT | | results section. | + +--------+ + + + | MUNA SEE, | Routin | 06/15/2016 | | Results for this | | ARTERIAL | e | 6:51 PM | | procedure are in the | | | | PDT | | results section. | + +--------+ + + + | JARRETT ZULMADAQUANMUNA, | Routin | 06/15/2016 | | Results for this | | ARTERIAL | e | 6:24 PM | | procedure are in the | | | | PDT | | results section. | + +--------+ + + + | MUNA SEE, | Routin | 06/15/2016 | | Results for this | | ARTERIAL | e | 6:03 PM | | procedure are in the | | | | PDT | | results section. | + +--------+ + + + | MUNA SEE, | Routin | 06/15/2016 | | Results for this | | ARTERIAL | e | 4:44 PM | | procedure are in the | | | | PDT | | results section. | + +--------+ + + + | POC ALAINA Hernandes, ISGURVINDERT | Routin | 06/15/2016 | | Results for this | | ARTERIAL | e | 3:39 PM | | procedure are in the | | | | PDT | | results section. | + +--------+ + + + | POC ZULMADAQUAN CG8, | Routin | 06/15/2016 | | Results for this | | ARTERIAL | e | 3:35 PM | | procedure are in the | | | | PDT | | results section. | + +--------+ + + + | POC GLUCOSE | Routin | 06/15/2016 | | Results for this | | | e | 11:55 AM | | procedure are in the | | | | PDT | | results section. | + +--------+ + + + | EXTERNAL LAB: CBC | Routin | 06/15/2016 | | Results for this | | | e | 7:21 AM | | procedure are in the | | | | PDT | | results section. | + +--------+ + + + | MAGNESIUM | Routin | 06/15/2016 | | Results for this | | | e | 7:21 AM | | procedure are in the | | | | PDT | | results section. | + +--------+ + + + | COMPREHENSIVE | Routin | 06/15/2016 | | Results for this | | METABOLIC PANEL | e | 7:21 AM | | procedure are in the | | | | PDT | | results section. | + +--------+ + + + | XR CHEST 2 VIEWS | Routin | 06/15/2016 | | Results for this | | | e | 6:48 AM | | procedure are in the | | | | PDT | | results section. | + +--------+ + + + | POC GLUCOSE | Routin | 06/15/2016 | | Results for this | | | e | 5:33 AM | | procedure are in the | | | | PDT | | results section. | + +--------+ + + + | VAS LOWER EXTREMITY | Routin | 06/15/2016 | | Results for this | | VEIN MAPPING | e | 3:59 AM | | procedure are in the | | BILATERAL | | PDT | | results section. | + +--------+ + + + | VAS CAROTID DUPLEX | Routin | 06/15/2016 | | Results for this | | BILATERAL | e | 3:51 AM | | procedure are in the | | | | PDT | | results section. | + +--------+ + + + | POC GLUCOSE | Routin | 06/14/2016 | | Results for this | | | e | 9:19 PM | | procedure are in the | | | | PDT | | results section. | + +--------+ + + + | MRSA NAAT | STAT | 06/14/2016 | | Results for this | | | | 8:36 PM | | procedure are in the | | | | PDT | | results section. | + +--------+ + + + documented in this encounter Results POC Glucose (06/22/2016 11:54 AM PDT) + + + + + + | Component | Value | Ref Range | Performed | Pathologist | | | | | At | Signature | + + + + + + | Glucose, | 113 (H)Comment: Testing | 65 - 99 mg/dL | EXTERNAL | | | Fingerstick | performed at [facility];[address] | | LAB | | | | [address];[place] | | | | | | [address] | | | | + + + + + + + + | Specimen | + + | | + + + +---------+ + + | Performing | Address | City/State/Zipcode | Phone Number | | Organization | | | | + +---------+ + + | EXTERNAL LAB | | | | + +---------+ + + POC Glucose (06/22/2016 5:29 AM PDT) + + + + + + | Component | Value | Ref Range | Performed | Pathologist | | | | | At | Signature | + + + + + + | Glucose, | 83Comment: Testing | 65 - 99 mg/dL | EXTERNAL | | | Fingerstick | performed at [facility];[address] | | LAB | | | | [address];[place] | | | | | | [address] | | | | + + + + + + + + | Specimen | + + | | + + + +---------+ + + | Performing | Address | City/State/Zipcode | Phone Number | | Organization | | | | + +---------+ + + | EXTERNAL LAB | | | | + +---------+ + + Magnesium (06/22/2016 4:28 AM PDT) + + + + + + | Component | Value | Ref Range | Performed | Pathologist | | | | | At | Signature | + + + + + + | Magnesium | 2.1Comment: Testing | 1.7 - 2.4 mg/dL | EXTERNAL | | | | performed at [facility], [address] | | LAB | | | | [address], | | | | | | [place] [address] | | | | + + + + + + + + | Specimen | + + | Blood specimen | | (specimen) | + + + +---------+ + + | Performing | Address | City/State/Zipcode | Phone Number | | Organization | | | | + +---------+ + + | EXTERNAL LAB | | | | + +---------+ + + Basic Metabolic Panel (06/22/2016 4:28 AM PDT) + + + + + + | Component | Value | Ref Range | Performed | Pathologist | | | | | At | Signature | + + + + + + | Na | 140Comment: Testing | 135 - 145 | EXTERNAL | | | | performed at [facility], [address] | mmol/L | LAB | | | | [address], | | | | | | [place] [address] | | | | + + + + + + | K | 4.4Comment: Testing | 3.5 - 4.9 | EXTERNAL | | | | performed at [facility], [address] | mmol/L | LAB | | | | [address], | | | | | | [place] [address] | | | | + + + + + + | Cl | 104Comment: Testing | 99 - 109 mmol/L | EXTERNAL | | | | performed at [facility], [address] | | LAB | | | | [address], | | | | | | [place], [place] [address] | | | | + + + + + + | CO2 | 30Comment: Testing | 23 - 32 mmol/L | EXTERNAL | | | | performed at [facility], [address] | | LAB | | | | [address], | | | | | | [place], [place] [address] | | | | + + + + + + | Anion Gap | 10Comment: Testing | 5 - 20 mmol/L | EXTERNAL | | | | performed at [facility], [address] | | LAB | | | | [address], | | | | | | [place] [address] | | | | + + + + + + | Glucose, | 88Comment: Testing | 65 - 99 mg/dL | EXTERNAL | | | Fasting | performed at [facility], [address] | | LAB | | | | [address], | | | | | | [place] [address] | | | | + + + + + + | BUN | 30 (H)Comment: Testing | 8 - 25 mg/dL | EXTERNAL | | | | performed at [facility], [address] | | LAB | | | | [address], | | | | | | [place] [address] | | | | + + + + + + | Creatinine | 0.8Comment: Testing | 0.70 - 1.30 | EXTERNAL | | | | performed at [facility], [address] | mg/dL | LAB | | | | [address], | | | | | | [place] [address] | | | | + + + + + + | BUN/Creatin | 38Comment: Testing | | EXTERNAL | | | ine Ratio | performed at [facility], [address] | | LAB | | | | [address], | | | | | | [place] [address] | | | | + + + + + + | Calcium | 8.9Comment: Testing | 8.5 - 10.5 | EXTERNAL | | | | performed at [facility], [address] | mg/dL | LAB | | | | [address], | | | | | | [place] [address] | | | | + + + + + + | Estimated | >60Comment: GFR <60: | mL/min/1.73m2 | EXTERNAL | | | GFR | CHRONIC KIDNEY DISEASE, | | LAB | | | | IF FOUND OVER A 3 MONTH | | | | | | PERIOD.GFR <15: KIDNEY | | | | | | FAILURE.FOR | | | | | | AMERICANS, MULTIPLY THE | | | | | | CALCULATED GFR BY | | | | | | 1.210.Testing performed | | | | | | at [facility], [address] | | | | | | [facility], | | | | | | [place] [address] | | | | + + + + + + + + | Specimen | + + | Blood specimen | | (specimen) | + + + +---------+ + + | Performing | Address | City/State/Zipcode | Phone Number | | Organization | | | | + +---------+ + + | EXTERNAL LAB | | | | + +---------+ + + POC Glucose (06/21/2016 9:09 PM PDT) + + + + + + | Component | Value | Ref Range | Performed | Pathologist | | | | | At | Signature | + + + + + + | Glucose, | 110 (H)Comment: Testing | 65 - 99 mg/dL | EXTERNAL | | | Fingerstick | performed at [facility];[address] | | LAB | | | | [address];[place] | | | | | | [address] | | | | + + + + + + + + | Specimen | + + | | + + + +---------+ + + | Performing | Address | City/State/Zipcode | Phone Number | | Organization | | | | + +---------+ + + | EXTERNAL LAB | | | | + +---------+ + + POC Glucose (06/21/2016 4:35 PM PDT) + + + + + + | Component | Value | Ref Range | Performed | Pathologist | | | | | At | Signature | + + + + + + | Glucose, | 118 (H)Comment: Testing | 65 - 99 mg/dL | EXTERNAL | | | Fingerstick | performed at [facility];[address] | | LAB | | | | [address];[place], [place] | | | | | | [address] | | | | + + + + + + + + | Specimen | + + | | + + + +---------+ + + | Performing | Address | City/State/Zipcode | Phone Number | | Organization | | | | + +---------+ + + | EXTERNAL LAB | | | | + +---------+ + + POC Glucose (06/21/2016 11:21 AM PDT) + + + + + + | Component | Value | Ref Range | Performed | Pathologist | | | | | At | Signature | + + + + + + | Glucose, | 145 (H)Comment: Testing | 65 - 99 mg/dL | EXTERNAL | | | Fingerstick | performed at [facility];[address] | | LAB | | | | [address];[place], [place] | | | | | | [address] | | | | + + + + + + + + | Specimen | + + | | + + + +---------+ + + | Performing | Address | City/State/Zipcode | Phone Number | | Organization | | | | + +---------+ + + | EXTERNAL LAB | | | | + +---------+ + + POC Glucose (06/21/2016 5:19 AM PDT) + + + + + + | Component | Value | Ref Range | Performed | Pathologist | | | | | At | Signature | + + + + + + | Glucose, | 120 (H)Comment: Testing | 65 - 99 mg/dL | EXTERNAL | | | Fingerstick | performed at [facility];[address] | | LAB | | | | [address];[place], [place] | | | | | | [address] | | | | + + + + + + + + | Specimen | + + | | + + + +---------+ + + | Performing | Address | City/State/Zipcode | Phone Number | | Organization | | | | + +---------+ + + | EXTERNAL LAB | | | | + +---------+ + + POC Glucose (06/21/2016 4:18 AM PDT) + + + + + + | Component | Value | Ref Range | Performed | Pathologist | | | | | At | Signature | + + + + + + | Glucose, | 116 (H)Comment: Testing | 65 - 99 mg/dL | EXTERNAL | | | Fingerstick | performed at [facility];[address] | | LAB | | | | [address];[place] | | | | | | [address] | | | | + + + + + + + + | Specimen | + + | | + + + +---------+ + + | Performing | Address | City/State/Zipcode | Phone Number | | Organization | | | | + +---------+ + + | EXTERNAL LAB | | | | + +---------+ + + External Lab: SOLIS (06/21/2016 3:40 AM PDT) + + + + + + | Component | Value | Ref Range | Performed | Pathologist | | | | | At | Signature | + + + + + + | WBC | 8.93Comment: Testing | 3.80 - 11.00 | EXTERNAL | | | | performed at [facility], [address] | [address] | LAB | | | | [address], | | | | | | [place] [address] | | | | + + + + + + | Non- | 2.70 (L)Comment: Testing | 4.20 - 5.70 | EXTERNAL | | | Red Blood | performed at [facility], [address] | [address] | LAB | | | Cells | [address], | | | | | Counted | [place] [address] | | | | + + + + + + | Hemoglobin | 8.1 (L)Comment: Testing | 13.2 - 17.0 | EXTERNAL | | | | performed at [facility], [address] | g/dL | LAB | | | | [address], | | | | | | [place] [address] | | | | + + + + + + | Hematocrit, | 24.1 (L)Comment: Testing | 39.0 - 50.0 % | EXTERNAL | | | POC | performed at [facility], [address] | | LAB | | | | [address], | | | | | | [place] [address] | | | | + + + + + + | MCV | 89.0Comment: Testing | 80.0 - 100.0 fl | EXTERNAL | | | | performed at [facility], [address] | | LAB | | | | [address], | | | | | | [place] [address] | | | | + + + + + + | MCH | 30.0Comment: Testing | 27.0 - 34.0 pg | EXTERNAL | | | | performed at [facility], [address] | | LAB | | | | [address], | | | | | | [place] [address] | | | | + + + + + + | MCHC | 33.7Comment: Testing | 32.0 - 35.5 | EXTERNAL | | | | performed at [facility], [address] | g/dL | LAB | | | | [address], | | | | | | [place] [address] | | | | + + + + + + | RDW-CV | 42.0Comment: Testing | 37 - 53 fl | EXTERNAL | | | | performed at [facility], [address] | | LAB | | | | [address], | | | | | | [place] [address] | | | | + + + + + + | Platelet | 249Comment: Testing | 150 - 400 K/uL | EXTERNAL | | | Count | performed at [facility], [address] | | LAB | | | Plasma | [address], | | | | | | [place] [address] | | | | + + + + + + | MPV | 9.4Comment: Testing | fl | EXTERNAL | | | | performed at [facility], [address] | | LAB | | | | [address], | | | | | | [place] [address] | | | | + + + + + + | Differentia | AUTOMATEDComment: | | EXTERNAL | | | l Type | Testing performed at | | LAB | | | | [facility], [address] | | | | | | [place] | | | | | | [address] | | | | + + + + + + | % Segmented | 60.90Comment: Testing | % | EXTERNAL | | | | performed at [facility], [address] | | LAB | | | Neutrophils | [address], | | | | | | [place] [address] | | | | + + + + + + | % | 25.17Comment: Testing | % | EXTERNAL | | | Lymphocytes | performed at [facility], [address] | | LAB | | | | [address], | | | | | | [place] [address] | | | | + + + + + + | % Monocytes | 10.39Comment: Testing | % | EXTERNAL | | | | performed at [facility], [address] | | LAB | | | | [address], | | | | | | [place] [address] | | | | + + + + + + | % | 2.88Comment: Testing | % | EXTERNAL | | | Eosinophils | performed at [facility], [address] | | LAB | | | | [address], | | | | | | [place] [address] | | | | + + + + + + | % Basophils | 0.66Comment: Testing | % | EXTERNAL | | | | performed at [facility], [address] | | LAB | | | | [address], | | | | | | [place] [address] | | | | + + + + + + | Absolute | 5.44Comment: Testing | 1.90 - 7.40 | EXTERNAL | | | Segmented | performed at [facility], [address] | K/uL | LAB | | | Neutrophils | [address], | | | | | | [place] [address] | | | | + + + + + + | Absolute | 2.25Comment: Testing | 1.00 - 3.90 | EXTERNAL | | | Lymphocytes | performed at [facility], [address] | K/uL | LAB | | | | [address], | | | | | | [place] [address] | | | | + + + + + + | Absolute | 0.93 (H)Comment: Testing | 0.00 - 0.80 | EXTERNAL | | | Monocytes | performed at [facility], [address] | [address] | LAB | | | | [address], | | | | | | [place] [address] | | | | + + + + + + | Absolute | 0.26Comment: Testing | 0.00 - 0.50 | EXTERNAL | | | Eosinophils | performed at [facility], [address] | K/uL | LAB | | | | [address], | | | | | | [place] [address] | | | | + + + + + + | Absolute | 0.06Comment: Testing | 0.00 - 0.10 | EXTERNAL | | | Basophils | performed at [facility], [address] | K/uL | LAB | | | | [address], | | | | | | [place] [address] | | | | + + + + + + + + | Specimen | + + | Blood specimen | | (specimen) | + + + +---------+ + + | Performing | Address | City/State/Zipcode | Phone Number | | Organization | | | | + +---------+ + + | EXTERNAL LAB | | | | + +---------+ + + Magnesium (06/21/2016 3:40 AM PDT) + + + + + + | Component | Value | Ref Range | Performed | Pathologist | | | | | At | Signature | + + + + + + | Magnesium | 2.3Comment: Testing | 1.7 - 2.4 mg/dL | EXTERNAL | | | | performed at [facility], [address] | | LAB | | | | [facility], | | | | | | [place] [address] | | | | + + + + + + + + | Specimen | + + | Blood specimen | | (specimen) | + + + +---------+ + + | Performing | Address | City/State/Zipcode | Phone Number | | Organization | | | | + +---------+ + + | EXTERNAL LAB | | | | + +---------+ + + Basic Metabolic Panel (06/21/2016 3:40 AM PDT) + + + + + + | Component | Value | Ref Range | Performed | Pathologist | | | | | At | Signature | + + + + + + | Na | 141Comment: Testing | 135 - 145 | EXTERNAL | | | | performed at [facility], [address] | mmol/L | LAB | | | | [address], | | | | | | [place] [address] | | | | + + + + + + | K | 4.2Comment: Testing | 3.5 - 4.9 | EXTERNAL | | | | performed at [facility], [address] | mmol/L | LAB | | | | [address], | | | | | | [place] [address] | | | | + + + + + + | Cl | 104Comment: Testing | 99 - 109 mmol/L | EXTERNAL | | | | performed at [facility], [address] | | LAB | | | | [address], | | | | | | [place] [address] | | | | + + + + + + | CO2 | 32Comment: Testing | 23 - 32 mmol/L | EXTERNAL | | | | performed at [facility], [address] | | LAB | | | | [address], | | | | | | [place] [address] | | | | + + + + + + | Anion Gap | 9Comment: Testing | 5 - 20 mmol/L | EXTERNAL | | | | performed at [facility], [address] | | LAB | | | | [address], | | | | | | [place] [address] | | | | + + + + + + | Glucose, | 101 (H)Comment: Testing | 65 - 99 mg/dL | EXTERNAL | | | Fasting | performed at [facility], [address] | | LAB | | | | [address], | | | | | | [place] [address] | | | | + + + + + + | BUN | 38 (H)Comment: Testing | 8 - 25 mg/dL | EXTERNAL | | | | performed at [facility], [address] | | LAB | | | | [address], | | | | | | [place] [address] | | | | + + + + + + | Creatinine | 0.9Comment: Testing | 0.70 - 1.30 | EXTERNAL | | | | performed at [facility], [address] | mg/dL | LAB | | | | [address], | | | | | | [place] [address] | | | | + + + + + + | BUN/Creatin | 42Comment: Testing | | EXTERNAL | | | ine Ratio | performed at [facility], [address] | | LAB | | | | [address], | | | | | | [place] [address] | | | | + + + + + + | Calcium | 8.8Comment: Testing | 8.5 - 10.5 | EXTERNAL | | | | performed at [facility], [address] | mg/dL | LAB | | | | [address], | | | | | | [place] [address] | | | | + + + + + + | Estimated | >60Comment: GFR <60: | mL/min/1.73m2 | EXTERNAL | | | GFR | CHRONIC KIDNEY DISEASE, | | LAB | | | | IF FOUND OVER A 3 MONTH | | | | | | PERIOD.GFR <15: KIDNEY | | | | | | FAILURE.FOR | | | | | | AMERICANS, MULTIPLY THE | | | | | | CALCULATED GFR BY | | | | | | 1.210.Testing performed | | | | | | at [facility], [address] | | | | | | [address], | | | | | | [place] [address] | | | | + + + + + + + + | Specimen | + + | Blood specimen | | (specimen) | + + + +---------+ + + | Performing | Address | City/State/Zipcode | Phone Number | | Organization | | | | + +---------+ + + | EXTERNAL LAB | | | | + +---------+ + + POC Glucose (06/20/2016 9:03 PM PDT) + + + + + + | Component | Value | Ref Range | Performed | Pathologist | | | | | At | Signature | + + + + + + | Glucose, | 170 (H)Comment: Testing | 65 - 99 mg/dL | EXTERNAL | | | Fingerstick | performed at [facility];[address] | | LAB | | | | [address];[place] | | | | | | [address] | | | | + + + + + + + + | Specimen | + + | | + + + +---------+ + + | Performing | Address | City/State/Zipcode | Phone Number | | Organization | | | | + +---------+ + + | EXTERNAL LAB | | | | + +---------+ + + POC Glucose (06/20/2016 3:47 PM PDT) + + + + + + | Component | Value | Ref Range | Performed | Pathologist | | | | | At | Signature | + + + + + + | Glucose, | 104 (H)Comment: Testing | 65 - 99 mg/dL | EXTERNAL | | | Fingerstick | performed at [facility];[address] | | LAB | | | | [address];[place] | | | | | | [address] | | | | + + + + + + + + | Specimen | + + | | + + + +---------+ + + | Performing | Address | City/State/Zipcode | Phone Number | | Organization | | | | + +---------+ + + | EXTERNAL LAB | | | | + +---------+ + + POC Glucose (06/20/2016 11:59 AM PDT) + + + + + + | Component | Value | Ref Range | Performed | Pathologist | | | | | At | Signature | + + + + + + | Glucose, | 200 (H)Comment: Testing | 65 - 99 mg/dL | EXTERNAL | | | Fingerstick | performed at [facility];[address] | | LAB | | | | [address];[place] | | | | | | [address] | | | | + + + + + + + + | Specimen | + + | | + + + +---------+ + + | Performing | Address | City/State/Zipcode | Phone Number | | Organization | | | | + +---------+ + + | EXTERNAL LAB | | | | + +---------+ + + POC Glucose (06/20/2016 9:58 AM PDT) + + + + + + | Component | Value | Ref Range | Performed | Pathologist | | | | | At | Signature | + + + + + + | Glucose, | 255 (H)Comment: Testing | 65 - 99 mg/dL | EXTERNAL | | | Fingerstick | performed at [facility] | | LAB | | | | [address];[place], [place] | | | | | | [address] | | | | + + + + + + + + | Specimen | + + | | + + + +---------+ + + | Performing | Address | City/State/Zipcode | Phone Number | | Organization | | | | + +---------+ + + | EXTERNAL LAB | | | | + +---------+ + + XR Chest 2 Vws (06/20/2016 9:35 AM PDT) + + | Specimen | + + | | + + + + + | Impressions | Performed At | + + + | 1. Similar cardiomegaly, status post median sternotomy and CABG. | | | Mild interstitial edema. Left basilar subsegmental atelectasis. 2. | | | Possible small left pleural effusion and/or pleural thickening. No | | | pneumothorax. Electronically signed by Lexy Tenorio on | | | 06/20/2016 10:00 AM | | + + + + + + | Narrative | Performed At | + + + | TR JOVEL CHEST 2 VIEW FRONTAL AND LATERAL 06/20/2016 9:35 AM | | | HISTORY: 61 years. Male. Tubes/line position, status post | | | cardiac surgery TECHNIQUE: XR CHEST 2 VIEW FRONTAL AND LATERAL. | | | 2 view(s) obtained. COMPARISON: Multiple, most recent | | | 06/19/2016 FINDINGS: Enlarged cardiopericardial silhouette, | | | status post median sternotomy and CABG. Low lung volumes. Mild | | | interstitial edema. Left basilar subsegmental atelectasis. Small left | | | pleural effusion and/or pleural thickening. Median sternotomy wires | | | are intact and aligned. No pneumothorax. | | + + + + + | Procedure Note | + + | Parker, Rad Conversion - 04/09/2019 7:51 PM PDT TR CABALLEROXR CHEST 2 VIEW FRONTAL AND | | [id number]/20/2016 9:35 AM HISTORY:61 years. Male. Tubes/line position, status post | | cardiac surgery TECHNIQUE:XR CHEST 2 VIEW FRONTAL AND LATERAL. 2 view(s) obtained. | | COMPARISON:Multiple, most recent 06/19/2016 FINDINGS:Enlarged cardiopericardial | | silhouette, status post median sternotomy and CABG. Low lung volumes. Mild interstitial | | edema. Left basilar subsegmental atelectasis. Small left pleural effusion and/or pleural | | thickening. Median sternotomy wires are intact and aligned. No pneumothorax. | | IMPRESSION: 1. Similar cardiomegaly, status post median sternotomy and CABG. Mild | | interstitial edema. Left basilar subsegmental atelectasis.2. Possible small left | | pleural effusion and/or pleural thickening. No pneumothorax. | |Multiple, most recent 06/19/2016 | | | |FINDINGS: | |Enlarged cardiopericardial silhouette, status post median sternotomy and CABG. Low lung vol umes. Mild interstitial edema. Left basilar subsegmental atelectasis. Small left pleural eff usion and/or pleural thickening. Median | |sternotomy wires are intact and | | aligned. No pneumothorax. | | | |IMPRESSION: | |1. Similar cardiomegaly, status post median sternotomy and CABG. Mild interstitial edema. Left basilar subsegmental atelectasis. | |2. Possible small left pleural effusion and/or pleural thickening. No pneumothorax. | | | | | + + External Lab: CBC (06/20/2016 4:11 AM PDT) + + + + + + | Component | Value | Ref Range | Performed | Pathologist | | | | | At | Signature | + + + + + + | WBC | 7.45Comment: Testing | 3.80 - 11.00 | EXTERNAL | | | | performed at [facility], [address] | [address] | LAB | | | | [address], | | | | | | [place] [address] | | | | + + + + + + | Non- | 2.68 (L)Comment: Testing | 4.20 - 5.70 | EXTERNAL | | | Red Blood | performed at [facility], [address] | M/u[address] | LAB | | | Cells | [address], | | | | | Counted | [place] [address] | | | | + + + + + + | Hemoglobin | 7.8 (L)Comment: Testing | 13.2 - 17.0 | EXTERNAL | | | | performed at [facility], [address] | g/dL | LAB | | | | [address], | | | | | | [place] [address] | | | | + + + + + + | Hematocrit, | 24.0 (L)Comment: Testing | 39.0 - 50.0 % | EXTERNAL | | | POC | performed at [facility], [address] | | LAB | | | | [address], | | | | | | [place] [address] | | | | + + + + + + | MCV | 89.5Comment: Testing | 80.0 - 100.0 fl | EXTERNAL | | | | performed at [facility], [address] | | LAB | | | | [address], | | | | | | [place] [address] | | | | + + + + + + | MCH | 29.0Comment: Testing | 27.0 - 34.0 pg | EXTERNAL | | | | performed at [facility], [address] | | LAB | | | | [address], | | | | | | [place] [address] | | | | + + + + + + | MCHC | 32.4Comment: Testing | 32.0 - 35.5 | EXTERNAL | | | | performed at [facility], [address] | g/dL | LAB | | | | [address], | | | | | | [place] [address] | | | | + + + + + + | RDW-CV | 42.9Comment: Testing | 37 - 53 fl | EXTERNAL | | | | performed at [facility], [address] | | LAB | | | | [address], | | | | | | [place] [address] | | | | + + + + + + | Platelet | 203Comment: Testing | 150 - 400 K/uL | EXTERNAL | | | Count | performed at [facility], [address] | | LAB | | | Plasma | [address], | | | | | | [place] [address] | | | | + + + + + + | MPV | 9.5Comment: Testing | fl | EXTERNAL | | | | performed at [facility], [address] | | LAB | | | | [address], | | | | | | [place] [address] | | | | + + + + + + | Differentia | AUTOMATEDComment: | | EXTERNAL | | | l Type | Testing performed at | | LAB | | | | [facility], [address] [facility] | | | | | | [place] | | | | | | [address] | | | | + + + + + + | % Segmented | 62.97Comment: Testing | % | EXTERNAL | | | | performed at [facility], [address] | | LAB | | | Neutrophils | [address], | | | | | | [place] [address] | | | | + + + + + + | % | 20.57Comment: Testing | % | EXTERNAL | | | Lymphocytes | performed at [facility], [address] | | LAB | | | | [address], | | | | | | [place] [address] | | | | + + + + + + | % Monocytes | 13.38Comment: Testing | % | EXTERNAL | | | | performed at [facility], [address] | | LAB | | | | [address], | | | | | | [place], [place] [address] | | | | + + + + + + | % | 2.61Comment: Testing | % | EXTERNAL | | | Eosinophils | performed at [facility], [address] | | LAB | | | [address], | | | | | | [place] [address] | | | | + + + + + + | % Basophils | 0.47Comment: Testing | % | EXTERNAL | | | | performed at [facility], [address] | | LAB | | | | [address], | | | | | | [place] [address] | | | | + + + + + + | Absolute | 4.69Comment: Testing | 1.90 - 7.40 | EXTERNAL | | | Segmented | performed at [facility], [address] | K/uL | LAB | | | Neutrophils | [address], | | | | | | [place] [address] | | | | + + + + + + | Absolute | 1.53Comment: Testing | 1.00 - 3.90 | EXTERNAL | | | Lymphocytes | performed at [facility], [address] | K/uL | LAB | | | | [address], | | | | | | [place] [address] | | | | + + + + + + | Absolute | 1.00 (H)Comment: Testing | 0.00 - 0.80 | EXTERNAL | | | Monocytes | performed at [facility], [address] | K/[address] | LAB | | | | [address], | | | | | | [place] [address] | | | | + + + + + + | Absolute | 0.19Comment: Testing | 0.00 - 0.50 | EXTERNAL | | | Eosinophils | performed at [facility], [address] | K/uL | LAB | | | | [address], | | | | | | [place] [address] | | | | + + + + + + | Absolute | 0.04Comment: Testing | 0.00 - 0.10 | EXTERNAL | | | Basophils | performed at [facility], [address] | K/uL | LAB | | | | [address], | | | | | | [place] [address] | | | | + + + + + + + + | Specimen | + + | Blood specimen | | (specimen) | + + + +---------+ + + | Performing | Address | City/State/Zipcode | Phone Number | | Organization | | | | + +---------+ + + | EXTERNAL LAB | | | | + +---------+ + + Magnesium (06/20/2016 4:11 AM PDT) + + + + + + | Component | Value | Ref Range | Performed | Pathologist | | | | | At | Signature | + + + + + + | Magnesium | 2.5 (H)Comment: Testing | 1.7 - 2.4 mg/dL | EXTERNAL | | | | performed at [facility], [address] | | LAB | | | | [address], | | | | | | [place] [address] | | | | + + + + + + + + | Specimen | + + | Blood specimen | | (specimen) | + + + +---------+ + + | Performing | Address | City/State/Zipcode | Phone Number | | Organization | | | | + +---------+ + + | EXTERNAL LAB | | | | + +---------+ + + Basic Metabolic Panel (06/20/2016 4:11 AM PDT) + + + + + + | Component | Value | Ref Range | Performed | Pathologist | | | | | At | Signature | + + + + + + | Na | 139Comment: Testing | 135 - 145 | EXTERNAL | | | | performed at [facility], [address] | mmol/L | LAB | | | | [address], | | | | | | [place] [address] | | | | + + + + + + | K | 4.6Comment: Testing | 3.5 - 4.9 | EXTERNAL | | | | performed at [facility], [address] | mmol/L | LAB | | | | [address], | | | | | | [place] [address] | | | | + + + + + + | Cl | 103Comment: Testing | 99 - 109 mmol/L | EXTERNAL | | | | performed at [facility], [address] | | LAB | | | | [address], | | | | | | [place] [address] | | | | + + + + + + | CO2 | 32Comment: Testing | 23 - 32 mmol/L | EXTERNAL | | | | performed at [facility], [address] | | LAB | | | | [address], | | | | | | [place] [address] | | | | + + + + + + | Anion Gap | 9Comment: Testing | 5 - 20 mmol/L | EXTERNAL | | | | performed at [facility], [address] | | LAB | | | | [address], | | | | | | [place] [address] | | | | + + + + + + | Glucose, | 135 (H)Comment: Testing | 65 - 99 mg/dL | EXTERNAL | | | Fasting | performed at [facility], [address] | | LAB | | | | [address], | | | | | | [place] [address] | | | | + + + + + + | BUN | 43 (H)Comment: Testing | 8 - 25 mg/dL | EXTERNAL | | | | performed at [facility], [address] | | LAB | | | | [address], | | | | | | [place] [address] | | | | + + + + + + | Creatinine | 0.9Comment: Testing | 0.70 - 1.30 | EXTERNAL | | | | performed at [facility], [address] | mg/dL | LAB | | | | [address], | | | | | | [place] [address] | | | | + + + + + + | BUN/Creatin | 48Comment: Testing | | EXTERNAL | | | ine Ratio | performed at [facility], [address] | | LAB | | | | [address], | | | | | | [place] [address] | | | | + + + + + + | Calcium | 8.1 (L)Comment: Testing | 8.5 - 10.5 | EXTERNAL | | | | performed at [facility], [address] | mg/dL | LAB | | | | [address], | | | | | | [place] [address] | | | | + + + + + + | Estimated | >60Comment: GFR <60: | mL/min/1.73m2 | EXTERNAL | | | GFR | CHRONIC KIDNEY DISEASE, | | LAB | | | | IF FOUND OVER A 3 MONTH | | | | | | PERIOD.GFR <15: KIDNEY | | | | | | FAILURE.FOR | | | | | | AMERICANS, MULTIPLY THE | | | | | | CALCULATED GFR BY | | | | | | 1.210.Testing performed | | | | | | at [facility], [address] | | | | | | [address], | | | | | | [place] [address] | | | | + + + + + + + + | Specimen | + + | Blood specimen | | (specimen) | + + + +---------+ + + | Performing | Address | City/State/Zipcode | Phone Number | | Organization | | | | + +---------+ + + | EXTERNAL LAB | | | | + +---------+ + + POC Glucose (06/19/2016 9:41 PM PDT) + + + + + + | Component | Value | Ref Range | Performed | Pathologist | | | | | At | Signature | + + + + + + | Glucose, | 167 (H)Comment: Testing | 65 - 99 mg/dL | EXTERNAL | | | Fingerstick | performed at [facility];[address] | | LAB | | | | [address];[place] | | | | | | [address] | | | | + + + + + + + + | Specimen | + + | | + + + +---------+ + + | Performing | Address | City/State/Zipcode | Phone Number | | Organization | | | | + +---------+ + + | EXTERNAL LAB | | | | + +---------+ + + POC Glucose (06/19/2016 5:05 PM PDT) + + + + + + | Component | Value | Ref Range | Performed | Pathologist | | | | | At | Signature | + + + + + + | Glucose, | 169 (H)Comment: Testing | 65 - 99 mg/dL | EXTERNAL | | | Fingerstick | performed at [facility];[address] | | LAB | | | | [address];[place] | | | | | | [address] | | | | + + + + + + + + | Specimen | + + | | + + + +---------+ + + | Performing | Address | City/State/Zipcode | Phone Number | | Organization | | | | + +---------+ + + | EXTERNAL LAB | | | | + +---------+ + + POC Glucose (06/19/2016 11:19 AM PDT) + + + + + + | Component | Value | Ref Range | Performed | Pathologist | | | | | At | Signature | + + + + + + | Glucose, | 185 (H)Comment: Testing | 65 - 99 mg/dL | EXTERNAL | | | Fingerstick | performed at [facility];[address] | | LAB | | | | [address];[place], [place] | | | | | | [address] | | | | + + + + + + + + | Specimen | + + | | + + + +---------+ + + | Performing | Address | City/State/Zipcode | Phone Number | | Organization | | | | + +---------+ + + | EXTERNAL LAB | | | | + +---------+ + + External Lab: CBC (06/19/2016 6:01 AM PDT) + + + + + + | Component | Value | Ref Range | Performed | Pathologist | | | | | At | Signature | + + + + + + | WBC | 7.84Comment: Testing | 3.80 - 11.00 | EXTERNAL | | | | performed at [facility], [address] | K/uL | LAB | | | | [address], | | | | | | [place] [address] | | | | + + + + + + | Non- | 2.64 (L)Comment: Testing | 4.20 - 5.70 | EXTERNAL | | | Red Blood | performed at [facility], [address] | [address] | LAB | | | Cells | [address], | | | | | Counted | [place] [address] | | | | + + + + + + | Hemoglobin | 7.7 (L)Comment: Testing | 13.2 - 17.0 | EXTERNAL | | | | performed at [facility], [address] | g/dL | LAB | | | | [address], | | | | | | [place] [address] | | | | + + + + + + | Hematocrit, | 23.6 (L)Comment: Testing | 39.0 - 50.0 % | EXTERNAL | | | POC | performed at [facility], [address] | | LAB | | | | [address], | | | | | | [place] [address] | | | | + + + + + + | MCV | 89.2Comment: Testing | 80.0 - 100.0 fl | EXTERNAL | | | | performed at [facility], [address] | | LAB | | | | [address], | | | | | | [place] [address] | | | | + + + + + + | MCH | 29.0Comment: Testing | 27.0 - 34.0 pg | EXTERNAL | | | | performed at [facility], [address] | | LAB | | | | [address], | | | | | | [place] [address] | | | | + + + + + + | MCHC | 32.5Comment: Testing | 32.0 - 35.5 | EXTERNAL | | | | performed at [facility], [address] | g/dL | LAB | | | | [address], | | | | | | [place] [address] | | | | + + + + + + | RDW-CV | 42.4Comment: Testing | 37 - 53 fl | EXTERNAL | | | | performed at [facility], [address] | | LAB | | | | [address], | | | | | | [place] [address] | | | | + + + + + + | Platelet | 170Comment: Testing | 150 - 400 K/uL | EXTERNAL | | | Count | performed at [facility], [address] | | LAB | | | Plasma | [address], | | | | | | [place] [address] | | | | + + + + + + | MPV | 9.6Comment: Testing | fl | EXTERNAL | | | | performed at [facility], [address] | | LAB | | | | [address], | | | | | | [place] [address] | | | | + + + + + + | Differentia | AUTOMATEDComment: | | EXTERNAL | | | l Type | Testing performed at | | LAB | | | | [facility], [address] | | | | | | [place] | | | | | | [address] | | | | + + + + + + | % Segmented | 69.55Comment: Testing | % | EXTERNAL | | | | performed at [facility], [address] | | LAB | | | Neutrophils | [address], | | | | | | [place] [address] | | | | + + + + + + | % | 17.10Comment: Testing | % | EXTERNAL | | | Lymphocytes | performed at [facility], [address] | | LAB | | | | [address], | | | | | | [place] [address] | | | | + + + + + + | % Monocytes | 10.86Comment: Testing | % | EXTERNAL | | | | performed at [facility], [address] | | LAB | | | | [address], | | | | | | [place] [address] | | | | + + + + + + | % | 2.09Comment: Testing | % | EXTERNAL | | | Eosinophils | performed at [facility], [address] | | LAB | | | | [address], | | | | | | [place] [address] | | | | + + + + + + | % Basophils | 0.40Comment: Testing | % | EXTERNAL | | | | performed at [facility], [address] | | LAB | | | | [address], | | | | | | [place] [address] | | | | + + + + + + | Absolute | 5.45Comment: Testing | 1.90 - 7.40 | EXTERNAL | | | Segmented | performed at [facility], [address] | K/uL | LAB | | | Neutrophils | [address], | | | | | | [place] [address] | | | | + + + + + + | Absolute | 1.34Comment: Testing | 1.00 - 3.90 | EXTERNAL | | | Lymphocytes | performed at [facility], [address] | K/uL | LAB | | | | [address], | | | | | | [place] [address] | | | | + + + + + + | Absolute | 0.85 (H)Comment: Testing | 0.00 - 0.80 | EXTERNAL | | | Monocytes | performed at [facility], [address] | [address] | LAB | | | | [address], | | | | | | [place] [address] | | | | + + + + + + | Absolute | 0.16Comment: Testing | 0.00 - 0.50 | EXTERNAL | | | Eosinophils | performed at [facility], [address] | K/uL | LAB | | | | [address], | | | | | | [place] [address] | | | | + + + + + + | Absolute | 0.03Comment: Testing | 0.00 - 0.10 | EXTERNAL | | | Basophils | performed at [facility], [address] | K/uL | LAB | | | | [address], | | | | | | [place] [address] | | | | + + + + + + + + | Specimen | + + | Blood specimen | | (specimen) | + + + +---------+ + + | Performing | Address | City/State/Zipcode | Phone Number | | Organization | | | | + +---------+ + + | EXTERNAL LAB | | | | + +---------+ + + Magnesium (06/19/2016 6:01 AM PDT) + + + + + + | Component | Value | Ref Range | Performed | Pathologist | | | | | At | Signature | + + + + + + | Magnesium | 2.8 (H)Comment: Testing | 1.7 - 2.4 mg/dL | EXTERNAL | | | | performed at [facility], [address] | | LAB | | | | [address], | | | | | | [place] [address] | | | | + + + + + + + + | Specimen | + + | Blood specimen | | (specimen) | + + + +---------+ + + | Performing | Address | City/State/Zipcode | Phone Number | | Organization | | | | + +---------+ + + | EXTERNAL LAB | | | | + +---------+ + + Basic Metabolic Panel (06/19/2016 6:01 AM PDT) + + + + + + | Component | Value | Ref Range | Performed | Pathologist | | | | | At | Signature | + + + + + + | Na | 138Comment: Testing | 135 - 145 | EXTERNAL | | | | performed at [facility], [address] | mmol/L | LAB | | | | [address], | | | | | | [place] [address] | | | | + + + + + + | K | 5.0 (H)Comment: Testing | 3.5 - 4.9 | EXTERNAL | | | | performed at [facility], [address] | mmol/L | LAB | | | | [address], | | | | | | [place] [address] | | | | + + + + + + | Cl | 104Comment: Testing | 99 - 109 mmol/L | EXTERNAL | | | | performed at [facility], [address] | | LAB | | | | [address], | | | | | | [place] [address] | | | | + + + + + + | CO2 | 29Comment: Testing | 23 - 32 mmol/L | EXTERNAL | | | | performed at [facility], [address] | | LAB | | | | [address], | | | | | | [place] [address] | | | | + + + + + + | Anion Gap | 10Comment: Testing | 5 - 20 mmol/L | EXTERNAL | | | | performed at [facility], [address] | | LAB | | | | [address], | | | | | | [place] [address] | | | | + + + + + + | Glucose, | 175 (H)Comment: Testing | 65 - 99 mg/dL | EXTERNAL | | | Fasting | performed at [facility], [address] | | LAB | | | | [address], | | | | | | [place] [address] | | | | + + + + + + | BUN | 48 (H)Comment: Testing | 8 - 25 mg/dL | EXTERNAL | | | | performed at [facility], [address] | | LAB | | | | [address], | | | | | | [place] [address] | | | | + + + + + + | Creatinine | 0.9Comment: Testing | 0.70 - 1.30 | EXTERNAL | | | | performed at [facility], [address] | mg/dL | LAB | | | | [address], | | | | | | [place] [address] | | | | + + + + + + | BUN/Creatin | 53Comment: Testing | | EXTERNAL | | | ine Ratio | performed at [facility], [address] | | LAB | | | | [address], | | | | | | [place] [address] | | | | + + + + + + | Calcium | 8.7Comment: Testing | 8.5 - 10.5 | EXTERNAL | | | | performed at [facility], [address] | mg/dL | LAB | | | | [address], | | | | | | [place] [address] | | | | + + + + + + | Estimated | >60Comment: GFR <60: | mL/min/1.73m2 | EXTERNAL | | | GFR | CHRONIC KIDNEY DISEASE, | | LAB | | | | IF FOUND OVER A 3 MONTH | | | | | | PERIOD.GFR <15: KIDNEY | | | | | | FAILURE.FOR | | | | | | AMERICANS, MULTIPLY THE | | | | | | CALCULATED GFR BY | | | | | | 1.210.Testing performed | | | | | | at [facility], [address] | | | | | | [address], | | | | | | [place] [address] | | | | + + + + + + + + | Specimen | + + | Blood specimen | | (specimen) | + + + +---------+ + + | Performing | Address | City/State/Zipcode | Phone Number | | Organization | | | | + +---------+ + + | EXTERNAL LAB | | | | + +---------+ + + XR Chest 1 Vw (06/19/2016 5:26 AM PDT) + + | Specimen | + + | | + + + + + | Impressions | Performed At | + + + | 1. Removal right IJ sheath. 2. Persistent moderate cardiac | | | enlargement. 3. Shifting bilateral perihilar atelectasis, overall | | | slightly improved. 4. No pneumothorax. | | + + + + + + | Narrative | Performed At | + + + | HISTORY: Evaluate tubes and lines. COMPARISON: 06/18/16. | | | TECHNIQUE: AP portable film of the chest at 0513 hours FINDINGS: | | | Cardiac enlargement post median sternotomy. Shifting bilateral | | | perihilar and left basilar atelectasis. Prominence of the superior | | | mediastinum again noted. Right IJ sheath has been removed. No | | | pneumothorax. | | + + + + + | Procedure Note | + + | Parker, David Conversion - 04/09/2019 7:51 PM PDT HISTORY:Evaluate tubes and lines. | | COMPARISON:06/18/16. TECHNIQUE:AP portable film of the chest at 0513 hours | | FINDINGS:Cardiac enlargement post median sternotomy. Shifting bilateral perihilar and | | left basilar atelectasis. Prominence of the superior mediastinum again noted. Right IJ | | sheath has been removed. No pneumothorax. IMPRESSION: 1. Removal right IJ sheath.2. | | Persistent moderate cardiac enlargement.3. Shifting bilateral perihilar atelectasis, | | overall slightly improved.4. No pneumothorax. | | | |FINDINGS: | |Cardiac enlargement post median sternotomy. Shifting bilateral perihilar and left basilar a telectasis. Prominence of the superior mediastinum again noted. Right IJ sheath has been rem abel. No pneumothorax. | | | |IMPRESSION: | |1. Removal right IJ sheath. | |2. Persistent moderate cardiac enlargement. | |3. Shifting bilateral perihilar atelectasis, overall slightly improved. | |4. No pneumothorax. | | | | | + + POC Glucose (06/19/2016 5:22 AM PDT) + + + + + + | Component | Value | Ref Range | Performed | Pathologist | | | | | At | Signature | + + + + + + | Glucose, | 195 (H)Comment: Testing | 65 - 99 mg/dL | EXTERNAL | | | Fingerstick | performed at [facility];[address] | | LAB | | | | [address];[place] | | | | | | [address] | | | | + + + + + + + + | Specimen | + + | | + + + +---------+ + + | Performing | Address | City/State/Zipcode | Phone Number | | Organization | | | | + +---------+ + + | EXTERNAL LAB | | | | + +---------+ + + POC Glucose (06/18/2016 9:57 PM PDT) + + + + + + | Component | Value | Ref Range | Performed | Pathologist | | | | | At | Signature | + + + + + + | Glucose, | 164 (H)Comment: Testing | 65 - 99 mg/dL | EXTERNAL | | | Fingerstick | performed at [facility];[address] | | LAB | | | | [address];[place] | | | | | | [address] | | | | + + + + + + + + | Specimen | + + | | + + + +---------+ + + | Performing | Address | City/State/Zipcode | Phone Number | | Organization | | | | + +---------+ + + | EXTERNAL LAB | | | | + +---------+ + + POC Glucose (06/18/2016 4:36 PM PDT) + + + + + + | Component | Value | Ref Range | Performed | Pathologist | | | | | At | Signature | + + + + + + | Glucose, | 213 (H)Comment: Testing | 65 - 99 mg/dL | EXTERNAL | | | Fingerstick | performed at [facility];[address] | | LAB | | | | [address];[place], [place] | | | | | | [address] | | | | + + + + + + + + | Specimen | + + | | + + + +---------+ + + | Performing | Address | City/State/Zipcode | Phone Number | | Organization | | | | + +---------+ + + | EXTERNAL LAB | | | | + +---------+ + + POC Glucose (06/18/2016 11:27 AM PDT) + + + + + + | Component | Value | Ref Range | Performed | Pathologist | | | | | At | Signature | + + + + + + | Glucose, | 177 (H)Comment: Testing | 65 - 99 mg/dL | EXTERNAL | | | Fingerstick | performed at [facility];[address] | | LAB | | | | [address];[place] | | | | | | [address] | | | | + + + + + + + + | Specimen | + + | | + + + +---------+ + + | Performing | Address | City/State/Zipcode | Phone Number | | Organization | | | | + +---------+ + + | EXTERNAL LAB | | | | + +---------+ + + POC Glucose (06/18/2016 6:35 AM PDT) + + + + + + | Component | Value | Ref Range | Performed | Pathologist | | | | | At | Signature | + + + + + + | Glucose, | 191 (H)Comment: Testing | 65 - 99 mg/dL | EXTERNAL | | | Fingerstick | performed at [facility];[address] | | LAB | | | | [address];[place], [place] | | | | | | [address] | | | | + + + + + + + + | Specimen | + + | | + + + +---------+ + + | Performing | Address | City/State/Zipcode | Phone Number | | Organization | | | | + +---------+ + + | EXTERNAL LAB | | | | + +---------+ + + XR Chest 1 Vw (06/18/2016 6:01 AM PDT) + + | Specimen | + + | | + + + + + | Impressions | Performed At | + + + | 1. Removal of the left chest tube and mediastinal drain, without | | | pneumothorax or pneumomediastinum. 2. Persistent mild/moderate | | | cardiac enlargement with prominence of the superior mediastinum. 3. | | | Persistent bilateral atelectasis. | | + + + + + + | Narrative | Performed At | + + + | HISTORY: Evaluate tubes and lines. COMPARISON: 06/17/16. | | | TECHNIQUE: AP portable film of the chest at 0504 hours FINDINGS: | | | Persistent mild to moderate cardiac enlargement with prominence of | | | the superior mediastinum post cardiac surgery. Bilateral perihilar and | | | left basilar atelectasis persists. Improvement in pulmonary venous | | | congestion. No pneumothorax. Removal left basilar chest drain and | | | midline mediastinal drain. No pneumothorax. No pneumomediastinum. | | + + + + + | Procedure Note | + + | Parker, Rad Conversion - 04/09/2019 7:51 PM PDT HISTORY:Evaluate tubes and lines. | | COMPARISON:06/17/16. TECHNIQUE:AP portable film of the chest at 0504 hours | | FINDINGS:Persistent mild to moderate cardiac enlargement with prominence of the superior | | mediastinum post cardiac surgery. Bilateral perihilar and left basilar atelectasis | | persists. Improvement in pulmonary venous congestion. No pneumothorax. Removal left | | basilar chest drain and midline mediastinal drain. No pneumothorax. No | | pneumomediastinum. IMPRESSION: 1. Removal of the left chest tube and mediastinal drain, | | without pneumothorax or pneumomediastinum.2. Persistent mild/moderate cardiac | | enlargement with prominence of the superior mediastinum.3. Persistent bilateral | | atelectasis. | |Persistent mild to moderate cardiac enlargement with prominence of the superior mediastinum post cardiac surgery. Bilateral perihilar and left basilar atelectasis persists. Improvemen t in pulmonary venous congestion. | |No pneumothorax. Removal left basilar | | chest drain and midline mediastinal drain. No pneumothorax. No pneumomediastinum. | | | |IMPRESSION: | |1. Removal of the left chest tube and mediastinal drain, without pneumothorax or pneumomed iastinum. | |2. Persistent mild/moderate cardiac enlargement with prominence of the superior mediastinu m. | |3. Persistent bilateral atelectasis. | | | | | + + External Lab: CBC (06/18/2016 4:30 AM PDT) + + + + + + | Component | Value | Ref Range | Performed | Pathologist | | | | | At | Signature | + + + + + + | WBC | 8.38Comment: Testing | 3.80 - 11.00 | EXTERNAL | | | | performed at [facility], [address] | K/uL | LAB | | | | [address], | | | | | | [place] [address] | | | | + + + + + + | Non- | 3.02 (L)Comment: Testing | 4.20 - 5.70 | EXTERNAL | | | Red Blood | performed at [facility], [address] | [address] | LAB | | | Cells | [address], | | | | | Counted | [place] [address] | | | | + + + + + + | Hemoglobin | 8.9 (L)Comment: Testing | 13.2 - 17.0 | EXTERNAL | | | | performed at [facility], [address] | g/dL | LAB | | | | [address], | | | | | | [place] [address] | | | | + + + + + + | Hematocrit, | 27.2 (L)Comment: Testing | 39.0 - 50.0 % | EXTERNAL | | | POC | performed at [facility], [address] | | LAB | | | | [address], | | | | | | [place] [address] | | | | + + + + + + | MCV | 90.1Comment: Testing | 80.0 - 100.0 fl | EXTERNAL | | | | performed at [facility], [address] | | LAB | | | | [address], | | | | | | [place] [address] | | | | + + + + + + | MCH | 29.4Comment: Testing | 27.0 - 34.0 pg | EXTERNAL | | | | performed at [facility], [address] | | LAB | | | | [address], | | | | | | [place] [address] | | | | + + + + + + | MCHC | 32.6Comment: Testing | 32.0 - 35.5 | EXTERNAL | | | | performed at [facility], [address] | g/dL | LAB | | | | [address], | | | | | | [place] [address] | | | | + + + + + + | RDW-CV | 42.0Comment: Testing | 37 - 53 fl | EXTERNAL | | | | performed at [facility], [address] | | LAB | | | | [address], | | | | | | [place] [address] | | | | + + + + + + | Platelet | 140 (L)Comment: Testing | 150 - 400 K/uL | EXTERNAL | | | Count | performed at [facility], [address] | | LAB | | | Plasma | [address], | | | | | | [place] [address] | | | | + + + + + + | MPV | 9.8Comment: Testing | fl | EXTERNAL | | | | performed at [facility], [address] | | LAB | | | | [address], | | | | | | [place] [address] | | | | + + + + + + | Differentia | AUTOMATEDComment: | | EXTERNAL | | | l Type | Testing performed at | | LAB | | | | [facility], [address] | | | | | | [place] | | | | | | [address] | | | | + + + + + + | % Segmented | 74.92Comment: Testing | % | EXTERNAL | | | | performed at [facility], [address] | | LAB | | | Neutrophils | [address], | | | | | | [place] [address] | | | | + + + + + + | % | 12.66Comment: Testing | % | EXTERNAL | | | Lymphocytes | performed at [facility], [address] | | LAB | | | | [address], | | | | | | [place], [place] [address] | | | | + + + + + + | % Monocytes | 10.86Comment: Testing | % | EXTERNAL | | | | performed at [facility], [address] | | LAB | | | | [address], | | | | | | [place], [place] [address] | | | | + + + + + + | % | 1.22Comment: Testing | % | EXTERNAL | | | Eosinophils | performed at [facility], [address] | | LAB | | | | [address], | | | | | | [place] [address] | | | | + + + + + + | % Basophils | 0.34Comment: Testing | % | EXTERNAL | | | | performed at [facility], [address] | | LAB | | | | [address], | | | | | | [place] [address] | | | | + + + + + + | Absolute | 6.27Comment: Testing | 1.90 - 7.40 | EXTERNAL | | | Segmented | performed at [facility], [address] | K/uL | LAB | | | Neutrophils | [address], | | | | | | [place] [address] | | | | + + + + + + | Absolute | 1.06Comment: Testing | 1.00 - 3.90 | EXTERNAL | | | Lymphocytes | performed at [facility], [address] | K/uL | LAB | | | | [address], | | | | | | [place] [address] | | | | + + + + + + | Absolute | 0.91 (H)Comment: Testing | 0.00 - 0.80 | EXTERNAL | | | Monocytes | performed at [facility], [address] | [address] | LAB | | | | [address], | | | | | | [place] [address] | | | | + + + + + + | Absolute | 0.10Comment: Testing | 0.00 - 0.50 | EXTERNAL | | | Eosinophils | performed at [facility], [address] | K/uL | LAB | | | | [address], | | | | | | [place] [address] | | | | + + + + + + | Absolute | 0.03Comment: Testing | 0.00 - 0.10 | EXTERNAL | | | Basophils | performed at [facility], [address] | K/uL | LAB | | | | [address], | | | | | | [place] [address] | | | | + + + + + + + + | Specimen | + + | Blood specimen | | (specimen) | + + + +---------+ + + | Performing | Address | City/State/Zipcode | Phone Number | | Organization | | | | + +---------+ + + | EXTERNAL LAB | | | | + +---------+ + + Magnesium (06/18/2016 4:30 AM PDT) + + + + + + | Component | Value | Ref Range | Performed | Pathologist | | | | | At | Signature | + + + + + + | Magnesium | 3.4 (H)Comment: Testing | 1.7 - 2.4 mg/dL | EXTERNAL | | | | performed at [facility], [address] | | LAB | | | | [address], | | | | | | [place] [address] | | | | + + + + + + + + | Specimen | + + | Blood specimen | | (specimen) | + + + +---------+ + + | Performing | Address | City/State/Zipcode | Phone Number | | Organization | | | | + +---------+ + + | EXTERNAL LAB | | | | + +---------+ + + Basic Metabolic Panel (06/18/2016 4:30 AM PDT) + + + + + + | Component | Value | Ref Range | Performed | Pathologist | | | | | At | Signature | + + + + + + | Na | 137Comment: Testing | 135 - 145 | EXTERNAL | | | | performed at [facility], [address] | mmol/L | LAB | | | | [address], | | | | | | [place] [address] | | | | + + + + + + | K | 5.6 (H)Comment: Testing | 3.5 - 4.9 | EXTERNAL | | | | performed at [facility], [address] | mmol/L | LAB | | | | [address], | | | | | | [place] [address] | | | | + + + + + + | Cl | 104Comment: Testing | 99 - 109 mmol/L | EXTERNAL | | | | performed at [facility], [address] | | LAB | | | | [address], | | | | | | [place] [address] | | | | + + + + + + | CO2 | 29Comment: Testing | 23 - 32 mmol/L | EXTERNAL | | | | performed at [facility], [address] | | LAB | | | | [address], | | | | | | [place] [address] | | | | + + + + + + | Anion Gap | 10Comment: Testing | 5 - 20 mmol/L | EXTERNAL | | | | performed at [facility], [address] | | LAB | | | | [address], | | | | | | [place] [address] | | | | + + + + + + | Glucose, | 156 (H)Comment: Testing | 65 - 99 mg/dL | EXTERNAL | | | Fasting | performed at [facility], [address] | | LAB | | | | [address], | | | | | | [place] [address] | | | | + + + + + + | BUN | 53 (H)Comment: Testing | 8 - 25 mg/dL | EXTERNAL | | | | performed at [facility], [address] | | LAB | | | | [address], | | | | | | [place] [address] | | | | + + + + + + | Creatinine | 1.4 (H)Comment: Testing | 0.70 - 1.30 | EXTERNAL | | | | performed at [facility], [address] | mg/dL | LAB | | | | [address], | | | | | | [place] [address] | | | | + + + + + + | BUN/Creatin | 38Comment: Testing | | EXTERNAL | | | ine Ratio | performed at [facility], [address] | | LAB | | | | [address], | | | | | | [place] [address] | | | | + + + + + + | Calcium | 8.2 (L)Comment: Testing | 8.5 - 10.5 | EXTERNAL | | | | performed at [facility], [address] | mg/dL | LAB | | | | [address], | | | | | | [place] [address] | | | | + + + + + + | Estimated | 55 (L)Comment: GFR <60: | mL/min/1.73m2 | EXTERNAL | | | GFR | CHRONIC KIDNEY DISEASE, | | LAB | | | | IF FOUND OVER A 3 MONTH | | | | | | PERIOD.GFR <15: KIDNEY | | | | | | FAILURE.FOR | | | | | | AMERICANS, MULTIPLY THE | | | | | | CALCULATED GFR BY | | | | | | 1.210.Testing performed | | | | | | at [facility], [address] | | | | | | [address], | | | | | | [place] [address] | | | | + + + + + + + + | Specimen | + + | Blood specimen | | (specimen) | + + + +---------+ + + | Performing | Address | City/State/Zipcode | Phone Number | | Organization | | | | + +---------+ + + | EXTERNAL LAB | | | | + +---------+ + + POC Glucose (06/17/2016 9:52 PM PDT) + + + + + + | Component | Value | Ref Range | Performed | Pathologist | | | | | At | Signature | + + + + + + | Glucose, | 180 (H)Comment: Testing | 65 - 99 mg/dL | EXTERNAL | | | Fingerstick | performed at [facility];[address] | | LAB | | | | [address];[place], [place] | | | | | | [address] | | | | + + + + + + + + | Specimen | + + | | + + + +---------+ + + | Performing | Address | City/State/Zipcode | Phone Number | | Organization | | | | + +---------+ + + | EXTERNAL LAB | | | | + +---------+ + + POC Glucose (06/17/2016 5:48 PM PDT) + + + + + + | Component | Value | Ref Range | Performed | Pathologist | | | | | At | Signature | + + + + + + | Glucose, | 179 (H)Comment: Testing | 65 - 99 mg/dL | EXTERNAL | | | Fingerstick | performed at [facility];[address] | | LAB | | | | [address];[place] | | | | | | [address] | | | | + + + + + + + + | Specimen | + + | | + + + +---------+ + + | Performing | Address | City/State/Zipcode | Phone Number | | Organization | | | | + +---------+ + + | EXTERNAL LAB | | | | + +---------+ + + POC Glucose (06/17/2016 12:41 PM PDT) + + + + + + | Component | Value | Ref Range | Performed | Pathologist | | | | | At | Signature | + + + + + + | Glucose, | 221 (H)Comment: Testing | 65 - 99 mg/dL | EXTERNAL | | | Fingerstick | performed at [facility] [place];[address] | | LAB | | | | [address];[place] | | | | | | [address] | | | | + + + + + + + + | Specimen | + + | | + + + +---------+ + + | Performing | Address | City/State/Zipcode | Phone Number | | Organization | | | | + +---------+ + + | EXTERNAL LAB | | | | + +---------+ + + Basic Metabolic Panel (06/17/2016 12:38 PM PDT) + + + + + + | Component | Value | Ref Range | Performed | Pathologist | | | | | At | Signature | + + + + + + | Na | 138Comment: Testing | 135 - 145 | EXTERNAL | | | | performed at [facility], [address] | mmol/L | LAB | | | | [address], | | | | | | [place] [address] | | | | + + + + + + | K | 5.2 (H)Comment: Testing | 3.5 - 4.9 | EXTERNAL | | | | performed at [facility], [address] | mmol/L | LAB | | | | [address], | | | | | | [place] [address] | | | | + + + + + + | Cl | 104Comment: Testing | 99 - 109 mmol/L | EXTERNAL | | | | performed at [facility], [address] | | LAB | | | | [address], | | | | | | [place] [address] | | | | + + + + + + | CO2 | 27Comment: Testing | 23 - 32 mmol/L | EXTERNAL | | | | performed at [facility], [address] | | LAB | | | | [address], | | | | | | [place] [address] | | | | + + + + + + | Anion Gap | 12Comment: Testing | 5 - 20 mmol/L | EXTERNAL | | | | performed at [facility], [address] | | LAB | | | | [address], | | | | | | [place] [address] | | | | + + + + + + | Glucose, | 203 (H)Comment: Testing | 65 - 99 mg/dL | EXTERNAL | | | Fasting | performed at [facility], [address] | | LAB | | | | [address], | | | | | | [place] [address] | | | | + + + + + + | BUN | 44 (H)Comment: Testing | 8 - 25 mg/dL | EXTERNAL | | | | performed at [facility], [address] | | LAB | | | | [address], | | | | | | [place] [address] | | | | + + + + + + | Creatinine | 1.6 (H)Comment: Testing | 0.70 - 1.30 | EXTERNAL | | | | performed at [facility], [address] | mg/dL | LAB | | | | [address], | | | | | | [place] [address] | | | | + + + + + + | BUN/Creatin | 28Comment: Testing | | EXTERNAL | | | ine Ratio | performed at [facility], [address] | | LAB | | | | [address], | | | | | | [place] [address] | | | | + + + + + + | Calcium | 7.7 (L)Comment: Testing | 8.5 - 10.5 | EXTERNAL | | | | performed at [facility], [address] | mg/dL | LAB | | | | [address], | | | | | | [place] [address] | | | | + + + + + + | Estimated | 47 (L)Comment: GFR <60: | mL/min/1.73m2 | EXTERNAL | | | GFR | CHRONIC KIDNEY DISEASE, | | LAB | | | | IF FOUND OVER A 3 MONTH | | | | | | PERIOD.GFR <15: KIDNEY | | | | | | FAILURE.FOR | | | | | | AMERICANS, MULTIPLY THE | | | | | | CALCULATED GFR BY | | | | | | 1.210.Testing performed | | | | | | at [facility], [address] | | | | | | [facility], | | | | | | [place] [address] | | | | + + + + + + + + | Specimen | + + | Blood specimen | | (specimen) | + + + +---------+ + + | Performing | Address | City/State[facility] | Phone Number | | Organization | | | | + +---------+ + + | EXTERNAL LAB | | | | + +---------+ + + XR Chest 1 Vw (06/17/2016 6:15 AM PDT) + + | Specimen | + + | | + + + + + | Impressions | Performed At | + + + | 1. Status post median sternotomy and CABG. Cardiomegaly with | | | pulmonary venous congestion and mild interstitial edema. 2. Small | | | bilateral pleural effusions with bibasilar atelectasis. 3. Support | | | apparatus is similar to radiographs dated 06/16/2016. | | | | | + + + + + + | Narrative | Performed At | + + + | TR CABALLERO XR CHEST 1 VIEW 06/17/2016 6:15 AM HISTORY: 61 | | | years. Male. Tubes/line position TECHNIQUE: XR CHEST 1 VIEW. | | | 1 view(s) obtained. COMPARISON: 06/16/2016 FINDINGS: | | | Enlarged cardiac pericardial silhouette, similar to radiographs dated | | | 06/16/2016. Similar position of right internal jugular approach | | | vascular sheath, mediastinal drain and left thoracostomy tube. Low | | | lung volumes. Pulmonary venous congestion with mild interstitial | | | edema. Bibasilar subsegmental atelectasis. Possible trace bilateral | | | pleural effusions. No pneumothorax. Median sternotomy wires are intact | | | and aligned. | | + + + + + | Procedure Note | + + | David Canales Conversion - 04/09/2019 7:51 PM PDT TR CABALLEROXR CHEST 1 VIEW06/17/2016 | | 6:15 AM HISTORY:61 years. Male. Tubes/line position TECHNIQUE:XR CHEST 1 VIEW. 1 | | view(s) obtained. COMPARISON:06/16/2016 FINDINGS:Enlarged cardiac pericardial | | silhouette, similar to radiographs dated 06/16/2016. Similar position of right internal | | jugular approach vascular sheath, mediastinal drain and left thoracostomy tube. Low lung | | volumes. Pulmonary venous congestion with mild interstitial edema. Bibasilar | | subsegmental atelectasis. Possible trace bilateral pleural effusions. No pneumothorax. | | Median sternotomy wires are intact and aligned. IMPRESSION: 1. Status post median | | sternotomy and CABG. Cardiomegaly with pulmonary venous congestion and mild interstitial | | edema.2. Small bilateral pleural effusions with bibasilar atelectasis.3. Support | | apparatus is similar to radiographs dated 06/16/2016. | | | |FINDINGS: | |Enlarged cardiac pericardial silhouette, similar to radiographs dated 06/16/2016. Similar p osition of right internal jugular approach vascular sheath, mediastinal drain and left thora costomy tube. Low lung volumes. | |Pulmonary venous congestion with mild | |interstitial edema. Bibasilar subsegmental atelectasis. Possible trace bilateral pleural ef fusions. No pneumothorax. Median sternotomy wires are intact and aligned. | | | |IMPRESSION: | |1. Status post median sternotomy and CABG. Cardiomegaly with pulmonary venous congestion a nd mild interstitial edema. | |2. Small bilateral pleural effusions with bibasilar atelectasis. | |3. Support apparatus is similar to radiographs dated 06/16/2016. | | | | | + + POC Glucose (06/17/2016 6:02 AM PDT) + + + + + + | Component | Value | Ref Range | Performed | Pathologist | | | | | At | Signature | + + + + + + | Glucose, | 200 (H)Comment: Testing | 65 - 99 mg/dL | EXTERNAL | | | Fingerstick | performed at [facility];[address] | | LAB | | | | [address];[place] | | | | | | [address] | | | | + + + + + + + + | Specimen | + + | | + + + +---------+ + + | Performing | Address | City/State/Zipcode | Phone Number | | Organization | | | | + +---------+ + + | EXTERNAL LAB | | | | + +---------+ + + External Lab: CBC (06/17/2016 3:57 AM PDT) + + + + + + | Component | Value | Ref Range | Performed | Pathologist | | | | | At | Signature | + + + + + + | WBC | 14.08 (H)Comment: | 3.80 - 11.00 | EXTERNAL | | | | Testing performed at | K/uL | LAB | | | | [facility], [address] | | | | | | [place] | | | | | | [address] | | | | + + + + + + | Non- | 2.87 (L)Comment: Testing | 4.20 - 5.70 | EXTERNAL | | | Red Blood | performed at [facility], [address] | M/uL | LAB | | | Cells | [address], | | | | | Counted | [place] [address] | | | | + + + + + + | Hemoglobin | 8.5 (L)Comment: Testing | 13.2 - 17.0 | EXTERNAL | | | | performed at [facility], [address] | g/dL | LAB | | | | [address], | | | | | | [place] [address] | | | | + + + + + + | Hematocrit, | 25.1 (L)Comment: Testing | 39.0 - 50.0 % | EXTERNAL | | | POC | performed at [facility], [address] | | LAB | | | | [address], | | | | | | [place] [address] | | | | + + + + + + | MCV | 87.5Comment: Testing | 80.0 - 100.0 fl | EXTERNAL | | | | performed at [facility], [address] | | LAB | | | | [address], | | | | | | [place] [address] | | | | + + + + + + | MCH | 29.5Comment: Testing | 27.0 - 34.0 pg | EXTERNAL | | | | performed at [facility], [address] | | LAB | | | | [address], | | | | | | [place] [address] | | | | + + + + + + | MCHC | 33.7Comment: Testing | 32.0 - 35.5 | EXTERNAL | | | | performed at [facility], [address] | g/dL | LAB | | | | [address], | | | | | | [place] [address] | | | | + + + + + + | RDW-CV | 42.0Comment: Testing | 37 - 53 fl | EXTERNAL | | | | performed at [facility], [address] | | LAB | | | | [address], | | | | | | [place] [address] | | | | + + + + + + | Platelet | 145 (L)Comment: Testing | 150 - 400 K/uL | EXTERNAL | | | Count | performed at [facility], [address] | | LAB | | | Plasma | [address], | | | | | | [place] [address] | | | | + + + + + + | MPV | 9.5Comment: Testing | fl | EXTERNAL | | | | performed at [facility], [address] | | LAB | | | | [address], | | | | | | [place] [address] | | | | + + + + + + | Differentia | AUTOMATEDComment: | | EXTERNAL | | | l Type | Testing performed at | | LAB | | | | [facility], [address] | | | | | | [place] | | | | | | [address] | | | | + + + + + + | % Segmented | 79.28Comment: Testing | % | EXTERNAL | | | | performed at [facility], [address] | | LAB | | | Neutrophils | [address], | | | | | | [place] [address] | | | | + + + + + + | % | 10.18Comment: Testing | % | EXTERNAL | | | Lymphocytes | performed at [facility], [address] | | LAB | | | | [address], | | | | | | [place] [address] | | | | + + + + + + | % Monocytes | 10.17Comment: Testing | % | EXTERNAL | | | | performed at [facility], [address] | | LAB | | | | [address], | | | | | | [place] [address] | | | | + + + + + + | % | 0.15Comment: Testing | % | EXTERNAL | | | Eosinophils | performed at [facility], [address] | | LAB | | | | [address], | | | | | | [place] [address] | | | | + + + + + + | % Basophils | 0.22Comment: Testing | % | EXTERNAL | | | | performed at [facility], [address] | | LAB | | | | [address], | | | | | | [place] [address] | | | | + + + + + + | Absolute | 11.16 (H)Comment: | 1.90 - 7.40 | EXTERNAL | | | Segmented | Testing performed at | K/uL | LAB | | | Neutrophils | [facility], [address] | | | | | | [place] | | | | | | [address] | | | | + + + + + + | Absolute | 1.43Comment: Testing | 1.00 - 3.90 | EXTERNAL | | | Lymphocytes | performed at [facility], [address] | K/uL | LAB | | | | [address], | | | | | | [place] [address] | | | | + + + + + + | Absolute | 1.43 (H)Comment: Testing | 0.00 - 0.80 | EXTERNAL | | | Monocytes | performed at [facility], [address] | K/uL | LAB | | | | [address], | | | | | | [place] [address] | | | | + + + + + + | Absolute | 0.02Comment: Testing | 0.00 - 0.50 | EXTERNAL | | | Eosinophils | performed at [facility], [address] | K/uL | LAB | | | | [address], | | | | | | [place] [address] | | | | + + + + + + | Absolute | 0.03Comment: Testing | 0.00 - 0.10 | EXTERNAL | | | Basophils | performed at [facility], [address] | K/uL | LAB | | | | [address], | | | | | | [place] [address] | | | | + + + + + + + + | Specimen | + + | Blood specimen | | (specimen) | + + + +---------+ + + | Performing | Address | City/State/Zipcode | Phone Number | | Organization | | | | + +---------+ + + | EXTERNAL LAB | | | | + +---------+ + + Magnesium (06/17/2016 3:57 AM PDT) + + + + + + | Component | Value | Ref Range | Performed | Pathologist | | | | | At | Signature | + + + + + + | Magnesium | 2.8 (H)Comment: Testing | 1.7 - 2.4 mg/dL | EXTERNAL | | | | performed at [facility], [address] | | LAB | | | | [address], | | | | | | [place] [address] | | | | + + + + + + + + | Specimen | + + | Blood specimen | | (specimen) | + + + +---------+ + + | Performing | Address | City/State/Zipcode | Phone Number | | Organization | | | | + +---------+ + + | EXTERNAL LAB | | | | + +---------+ + + Basic Metabolic Panel (06/17/2016 3:57 AM PDT) + + + + + + | Component | Value | Ref Range | Performed | Pathologist | | | | | At | Signature | + + + + + + | Na | 137Comment: Testing | 135 - 145 | EXTERNAL | | | | performed at [facility], [address] | mmol/L | LAB | | | | [address], | | | | | | [place] [address] | | | | + + + + + + | K | 5.9 (H)Comment: Testing | 3.5 - 4.9 | EXTERNAL | | | | performed at [facility], [address] | mmol/L | LAB | | | | [address], | | | | | | [place] [address] | | | | + + + + + + | Cl | 104Comment: Testing | 99 - 109 mmol/L | EXTERNAL | | | | performed at [facility], [address] | | LAB | | | | [address], | | | | | | [place] [address] | | | | + + + + + + | CO2 | 26Comment: Testing | 23 - 32 mmol/L | EXTERNAL | | | | performed at [facility], [address] | | LAB | | | | [address], | | | | | | [place] [address] | | | | + + + + + + | Anion Gap | 13Comment: Testing | 5 - 20 mmol/L | EXTERNAL | | | | performed at [facility], [address] | | LAB | | | | [address], | | | | | | [place] [address] | | | | + + + + + + | Glucose, | 174 (H)Comment: Testing | 65 - 99 mg/dL | EXTERNAL | | | Fasting | performed at [facility], [address] | | LAB | | | | [address], | | | | | | [place] [address] | | | | + + + + + + | BUN | 41 (H)Comment: Testing | 8 - 25 mg/dL | EXTERNAL | | | | performed at [facility], [address] | | LAB | | | | [address], | | | | | | [place] [address] | | | | + + + + + + | Creatinine | 1.7 (H)Comment: Testing | 0.70 - 1.30 | EXTERNAL | | | | performed at [facility], [address] | mg/dL | LAB | | | | [address], | | | | | | [place] [address] | | | | + + + + + + | BUN/Creatin | 24Comment: Testing | | EXTERNAL | | | ine Ratio | performed at [facility], [address] | | LAB | | | | [address], | | | | | | [place] [address] | | | | + + + + + + | Calcium | 7.6 (L)Comment: Testing | 8.5 - 10.5 | EXTERNAL | | | | performed at [facility], [address] | mg/dL | LAB | | | | [address], | | | | | | [place] [address] | | | | + + + + + + | Estimated | 44 (L)Comment: GFR <60: | mL/min/1.73m2 | EXTERNAL | | | GFR | CHRONIC KIDNEY DISEASE, | | LAB | | | | IF FOUND OVER A 3 MONTH | | | | | | PERIOD.GFR <15: KIDNEY | | | | | | FAILURE.FOR | | | | | | AMERICANS, MULTIPLY THE | | | | | | CALCULATED GFR BY | | | | | | 1.210.Testing performed | | | | | | at [facility], [address] | | | | | | [address], | | | | | | [place] [address] | | | | + + + + + + + + | Specimen | + + | Blood specimen | | (specimen) | + + + +---------+ + + | Performing | Address | City/State/Zipcode | Phone Number | | Organization | | | | + +---------+ + + | EXTERNAL LAB | | | | + +---------+ + + POC Glucose (06/17/2016 12:35 AM PDT) + + + + + + | Component | Value | Ref Range | Performed | Pathologist | | | | | At | Signature | + + + + + + | Glucose, | 142 (H)Comment: Testing | 65 - 99 mg/dL | EXTERNAL | | | Fingerstick | performed at [facility];[address] | | LAB | | | | [address];[place], [place] | | | | | | [address] | | | | + + + + + + + + | Specimen | + + | | + + + +---------+ + + | Performing | Address | City/State/Zipcode | Phone Number | | Organization | | | | + +---------+ + + | EXTERNAL LAB | | | | + +---------+ + + POC Glucose (06/16/2016 10:48 PM PDT) + + + + + + | Component | Value | Ref Range | Performed | Pathologist | | | | | At | Signature | + + + + + + | Glucose, | 150 (H)Comment: Testing | 65 - 99 mg/dL | EXTERNAL | | | Fingerstick | performed at [facility] | | LAB | | | | [address];[place] | | | | | | [address] | | | | + + + + + + + + | Specimen | + + | | + + + +---------+ + + | Performing | Address | City/State/Zipcode | Phone Number | | Organization | | | | + +---------+ + + | EXTERNAL LAB | | | | + +---------+ + + POC Glucose (06/16/2016 9:44 PM PDT) + + + + + + | Component | Value | Ref Range | Performed | Pathologist | | | | | At | Signature | + + + + + + | Glucose, | 159 (H)Comment: Testing | 65 - 99 mg/dL | EXTERNAL | | | Fingerstick | performed at [facility];[address] | | LAB | | | | [address];[place] | | | | | | [address] | | | | + + + + + + + + | Specimen | + + | | + + + +---------+ + + | Performing | Address | City/State/Zipcode | Phone Number | | Organization | | | | + +---------+ + + | EXTERNAL LAB | | | | + +---------+ + + Potassium (06/16/2016 9:42 PM PDT) + + + + + + | Component | Value | Ref Range | Performed | Pathologist | | | | | At | Signature | + + + + + + | K | 5.2 (H)Comment: Testing | 3.5 - 4.9 | EXTERNAL | | | | performed at [facility];[address] | mmol/L | LAB | | | | [address];[place], [place] | | | | | | [address] | | | | + + + + + + + + | Specimen | + + | Blood specimen | | (specimen) | + + + +---------+ + + | Performing | Address | City/State/Zipcode | Phone Number | | Organization | | | | + +---------+ + + | EXTERNAL LAB | | | | + +---------+ + + POC Glucose (06/16/2016 8:39 PM PDT) + + + + + + | Component | Value | Ref Range | Performed | Pathologist | | | | | At | Signature | + + + + + + | Glucose, | 173 (H)Comment: Testing | 65 - 99 mg/dL | EXTERNAL | | | Fingerstick | performed at [facility];[address] | | LAB | | | | [address];[place], [place] | | | | | | [address] | | | | + + + + + + + + | Specimen | + + | | + + + +---------+ + + | Performing | Address | City/State/Zipcode | Phone Number | | Organization | | | | + +---------+ + + | EXTERNAL LAB | | | | + +---------+ + + POC Glucose (06/16/2016 7:36 PM PDT) + + + + + + | Component | Value | Ref Range | Performed | Pathologist | | | | | At | Signature | + + + + + + | Glucose, | 190 (H)Comment: Testing | 65 - 99 mg/dL | EXTERNAL | | | Fingerstick | performed at [facility];[address] | | LAB | | | | [address];[place] | | | | | | [address] | | | | + + + + + + + + | Specimen | + + | | + + + +---------+ + + | Performing | Address | City/State/Zipcode | Phone Number | | Organization | | | | + +---------+ + + | EXTERNAL LAB | | | | + +---------+ + + POC Glucose (06/16/2016 7:02 PM PDT) + + + + + + | Component | Value | Ref Range | Performed | Pathologist | | | | | At | Signature | + + + + + + | Glucose, | 178 (H)Comment: Testing | 65 - 99 mg/dL | EXTERNAL | | | Fingerstick | performed at [facility];[address] | | LAB | | | | [address];[place], [place] | | | | | | [address] | | | | + + + + + + + + | Specimen | + + | | + + + +---------+ + + | Performing | Address | City/State/Zipcode | Phone Number | | Organization | | | | + +---------+ + + | EXTERNAL LAB | | | | + +---------+ + + Potassium (06/16/2016 6:34 PM PDT) + + + + + + | Component | Value | Ref Range | Performed | Pathologist | | | | | At | Signature | + + + + + + | K | 6.0 (H)Comment: Testing | 3.5 - 4.9 | EXTERNAL | | | | performed at [facility];[address] | mmol/L | LAB | | | | [address];[place] | | | | | | [address] | | | | + + + + + + + + | Specimen | + + | Blood specimen | | (specimen) | + + + +---------+ + + | Performing | Address | City/State/Zipcode | Phone Number | | Organization | | | | + +---------+ + + | EXTERNAL LAB | | | | + +---------+ + + POC Glucose (06/16/2016 3:53 PM PDT) + + + + + + | Component | Value | Ref Range | Performed | Pathologist | | | | | At | Signature | + + + + + + | Glucose, | 120 (H)Comment: Testing | 65 - 99 mg/dL | EXTERNAL | | | Fingerstick | performed at [facility];[address] | | LAB | | | | [address];[place], [place] | | | | | | [address] | | | | + + + + + + + + | Specimen | + + | | + + + +---------+ + + | Performing | Address | City/State/Zipcode | Phone Number | | Organization | | | | + +---------+ + + | EXTERNAL LAB | | | | + +---------+ + + POC Glucose (06/16/2016 1:50 PM PDT) + + + + + + | Component | Value | Ref Range | Performed | Pathologist | | | | | At | Signature | + + + + + + | Glucose, | 125 (H)Comment: Testing | 65 - 99 mg/dL | EXTERNAL | | | Fingerstick | performed at [facility] | | LAB | | | | [address];[place] | | | | | | [address] | | | | + + + + + + + + | Specimen | + + | | + + + +---------+ + + | Performing | Address | City/State/Zipcode | Phone Number | | Organization | | | | + +---------+ + + | EXTERNAL LAB | | | | + +---------+ + + Potassium (06/16/2016 1:45 PM PDT) + + + + + + | Component | Value | Ref Range | Performed | Pathologist | | | | | At | Signature | + + + + + + | K | 5.3 (H)Comment: Testing | 3.5 - 4.9 | EXTERNAL | | | | performed at [facility];[address] | mmol/L | LAB | | | | [address];[place], [place] | | | | | | [address] | | | | + + + + + + + + | Specimen | + + | Blood specimen | | (specimen) | + + + +---------+ + + | Performing | Address | City/State/Zipcode | Phone Number | | Organization | | | | + +---------+ + + | EXTERNAL LAB | | | | + +---------+ + + POC Glucose (06/16/2016 12:48 PM PDT) + + + + + + | Component | Value | Ref Range | Performed | Pathologist | | | | | At | Signature | + + + + + + | Glucose, | 128 (H)Comment: Testing | 65 - 99 mg/dL | EXTERNAL | | | Fingerstick | performed at [facility];[address] | | LAB | | | | [address];[place] | | | | | | [address] | | | | + + + + + + + + | Specimen | + + | | + + + +---------+ + + | Performing | Address | City/State/Zipcode | Phone Number | | Organization | | | | + +---------+ + + | EXTERNAL LAB | | | | + +---------+ + + POC Glucose (06/16/2016 11:44 AM PDT) + + + + + + | Component | Value | Ref Range | Performed | Pathologist | | | | | At | Signature | + + + + + + | Glucose, | 126 (H)Comment: Testing | 65 - 99 mg/dL | EXTERNAL | | | Fingerstick | performed at [facility];[address] | | LAB | | | | [address];[place], [place] | | | | | | [address] | | | | + + + + + + + + | Specimen | + + | | + + + +---------+ + + | Performing | Address | City/State/Zipcode | Phone Number | | Organization | | | | + +---------+ + + | EXTERNAL LAB | | | | + +---------+ + + POC Glucose (06/16/2016 10:37 AM PDT) + + + + + + | Component | Value | Ref Range | Performed | Pathologist | | | | | At | Signature | + + + + + + | Glucose, | 159 (H)Comment: Testing | 65 - 99 mg/dL | EXTERNAL | | | Fingerstick | performed at [facility];[address] | | LAB | | | | [address];[place] | | | | | | [address] | | | | + + + + + + + + | Specimen | + + | | + + + +---------+ + + | Performing | Address | City/State/Zipcode | Phone Number | | Organization | | | | + +---------+ + + | EXTERNAL LAB | | | | + +---------+ + + POC Glucose (06/16/2016 9:16 AM PDT) + + + + + + | Component | Value | Ref Range | Performed | Pathologist | | | | | At | Signature | + + + + + + | Glucose, | 178 (H)Comment: Testing | 65 - 99 mg/dL | EXTERNAL | | | Fingerstick | performed at [facility];[address] | | LAB | | | | [address];[place] | | | | | | [address] | | | | + + + + + + + + | Specimen | + + | | + + + +---------+ + + | Performing | Address | City/State/Zipcode | Phone Number | | Organization | | | | + +---------+ + + | EXTERNAL LAB | | | | + +---------+ + + Potassium (06/16/2016 9:11 AM PDT) + + + + + + | Component | Value | Ref Range | Performed | Pathologist | | | | | At | Signature | + + + + + + | K | 5.1 (H)Comment: Testing | 3.5 - 4.9 | EXTERNAL | | | | performed at [facility];[address] | mmol/L | LAB | | | | [address];[place] | | | | | | [address] | | | | + + + + + + + + | Specimen | + + | Blood specimen | | (specimen) | + + + +---------+ + + | Performing | Address | City/State/Zipcode | Phone Number | | Organization | | | | + +---------+ + + | EXTERNAL LAB | | | | + +---------+ + + POC Glucose (06/16/2016 8:08 AM PDT) + + + + + + | Component | Value | Ref Range | Performed | Pathologist | | | | | At | Signature | + + + + + + | Glucose, | 230 (H)Comment: Testing | 65 - 99 mg/dL | EXTERNAL | | | Fingerstick | performed at [facility];[address] | | LAB | | | | [address];[place] | | | | | | [address] | | | | + + + + + + + + | Specimen | + + | | + + + +---------+ + + | Performing | Address | City/State/Zipcode | Phone Number | | Organization | | | | + +---------+ + + | EXTERNAL LAB | | | | + +---------+ + + POC Glucose (06/16/2016 7:12 AM PDT) + + + + + + | Component | Value | Ref Range | Performed | Pathologist | | | | | At | Signature | + + + + + + | Glucose, | 224 (H)Comment: Testing | 65 - 99 mg/dL | EXTERNAL | | | Fingerstick | performed at [facility];[address] | | LAB | | | | [address];[place] | | | | | | [address] | | | | + + + + + + + + | Specimen | + + | | + + + +---------+ + + | Performing | Address | City/State/Zipcode | Phone Number | | Organization | | | | + +---------+ + + | EXTERNAL LAB | | | | + +---------+ + + POC Glucose (06/16/2016 6:43 AM PDT) + + + + + + | Component | Value | Ref Range | Performed | Pathologist | | | | | At | Signature | + + + + + + | Glucose, | 220 (H)Comment: Testing | 65 - 99 mg/dL | EXTERNAL | | | Fingerstick | performed at [facility];[address] | [address] | | [address];[place], [place] | | | | | | [address] | | | | + + + + + + + + | Specimen | + + | | + + + +---------+ + + | Performing | Address | City/State/Zipcode | Phone Number | | Organization | | | | + +---------+ + + | EXTERNAL LAB | | | | + +---------+ + + XR Chest 1 Vw (06/16/2016 5:53 AM PDT) + + | Specimen | + + | | + + + + + | Impressions | Performed At | + + + | 1. Life-support devices as described above. 2. Left basilar | | | atelectasis Electronically signed by Allen Valencia MD on | | | 06/16/2016 8:05 AM | | + + + + + + | Narrative | Performed At | + + + | TR CABALLERO XR CHEST 1 VIEW 06/16/2016 5:53 AM History: 61 | | | years. Male. Critical care unit patient evaluate heart, tubes and | | | lines. Technique: AP supine portable view of the chest at 0530 | | | hours. Compared to 2120 hours last evening. Findings: Is been | | | interval extubation and removal of the nasogastric tube. The left | | | pleural drain is unchanged in position. The mediastinal drain is not | | | well seen due to underpenetration but is thought to be present. | | | Cardiac size is mildly generous but unchanged. Normal pulmonary | | | vascular pattern. 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 | | | Persistent left basilar atelectasis. | | + + + + + | Procedure Note | + + | Parker, Rad Conversion - 04/09/2019 7:51 PM PDT TR CABALLEROXR CHEST 1 VIEW06/16/2016 | | 5:53 AM History: 61 years. Male. Critical care unit patient evaluate heart, tubes and | | lines. Technique: AP supine portable view of the chest at 0530 hours. Compared to 2120 | | hours last evening. Findings: Is been interval extubation and removal of the nasogastric | | tube. The left pleural drain is unchanged in position. The mediastinal drain is not | | well seen due to underpenetration but is thought to be present. Cardiac size is mildly | | generous but unchanged. Normal pulmonary vascular pattern. Postoperative changes of | | sternotomy and prior CABG. Persistent left basilar atelectasis. IMPRESSION: 1. | | Life-support devices as described above.2. Left basilar atelectasis Electronically | | signed by Allen Valencia MD on 06/16/2016 8:05 AM | |unchanged. Normal pulmonary vascular pattern. 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 Persistent left basilar atelectasis. | | | | | |IMPRESSION: | |1. Life-support devices as described above. | |2. Left basilar atelectasis | | | | | + + POC Glucose (06/16/2016 5:09 AM PDT) + + + + + + | Component | Value | Ref Range | Performed | Pathologist | | | | | At | Signature | + + + + + + | Glucose, | 210 (H)Comment: Testing | 65 - 99 mg/dL | EXTERNAL | | | Fingerstick | performed at [facility];[address] | | LAB | | | | [address];[place] | | | | | | [address] | | | | + + + + + + + + | Specimen | + + | | + + + +---------+ + + | Performing | Address | City/State/Zipcode | Phone Number | | Organization | | | | + +---------+ + + | EXTERNAL LAB | | | | + +---------+ + + External Lab: CBC (06/16/2016 3:52 AM PDT) + + + + + + | Component | Value | Ref Range | Performed | Pathologist | | | | | At | Signature | + + + + + + | WBC | 13.04 (H)Comment: | 3.80 - 11.00 | EXTERNAL | | | | Testing performed at | K/uL | LAB | | | | [facility], [address] | | | | | | [place] | | | | | | [address] | | | | + + + + + + | Non- | 3.35 (L)Comment: Testing | 4.20 - 5.70 | EXTERNAL | | | Red Blood | performed at [facility], [address] | [address] | LAB | | | Cells | [address], | | | | | Counted | [place] [address] | | | | + + + + + + | Hemoglobin | 9.8 (L)Comment: Testing | 13.2 - 17.0 | EXTERNAL | | | | performed at [facility], [address] | g/dL | LAB | | | | [address], | | | | | | [place] [address] | | | | + + + + + + | Hematocrit, | 29.4 (L)Comment: Testing | 39.0 - 50.0 % | EXTERNAL | | | POC | performed at [facility], [address] | | LAB | | | | [address], | | | | | | [place] [address] | | | | + + + + + + | MCV | 87.7Comment: Testing | 80.0 - 100.0 fl | EXTERNAL | | | | performed at [facility], [address] | | LAB | | | | [address], | | | | | | [place] [address] | | | | + + + + + + | MCH | 29.3Comment: Testing | 27.0 - 34.0 pg | EXTERNAL | | | | performed at [facility], [address] | | LAB | | | | [address], | | | | | | [place] [address] | | | | + + + + + + | MCHC | 33.4Comment: Testing | 32.0 - 35.5 | EXTERNAL | | | | performed at [facility], [address] | g/dL | LAB | | | | [address], | | | | | | [place] [address] | | | | + + + + + + | RDW-CV | 40.7Comment: Testing | 37 - 53 fl | EXTERNAL | | | | performed at [facility], [address] | | LAB | | | | [address], | | | | | | [place] [address] | | | | + + + + + + | Platelet | 163Comment: Testing | 150 - 400 K/uL | EXTERNAL | | | Count | performed at [facility], [address] | | LAB | | | Plasma | [address], | | | | | | [place] [address] | | | | + + + + + + | MPV | 9.4Comment: Testing | fl | EXTERNAL | | | | performed at [facility], [address] | | LAB | | | | [address], | | | | | | [place] [address] | | | | + + + + + + | Differentia | AUTOMATEDComment: | | EXTERNAL | | | l Type | Testing performed at | | LAB | | | | [facility], [address] | | | | | | [place] | | | | | | [address] | | | | + + + + + + | % Segmented | 84.37Comment: Testing | % | EXTERNAL | | | | performed at [facility], [address] | | LAB | | | Neutrophils | [address], | | | | | | [place] [address] | | | | + + + + + + | % | 6.88Comment: Testing | % | EXTERNAL | | | Lymphocytes | performed at [facility], [address] | | LAB | | | | [address] [place], | | | | | | [place] [address] | | | | + + + + + + | % Monocytes | 8.47Comment: Testing | % | EXTERNAL | | | | performed at [facility], [address] | | LAB | | | | [address], | | | | | | [place] [address] | | | | + + + + + + | % | 0.04Comment: Testing | % | EXTERNAL | | | Eosinophils | performed at [facility], [address] | | LAB | | | | [address], | | | | | | [place] [address] | | | | + + + + + + | % Basophils | 0.24Comment: Testing | % | EXTERNAL | | | | performed at [facility], [address] | | LAB | | | | [address], | | | | | | [place] [address] | | | | + + + + + + | Absolute | 11.00 (H)Comment: | 1.90 - 7.40 | EXTERNAL | | | Segmented | Testing performed at | K/uL | LAB | | | Neutrophils | [facility], [address] | | | | | | [place] | | | | | | [address] | | | | + + + + + + | Absolute | 0.90 (L)Comment: Testing | 1.00 - 3.90 | EXTERNAL | | | Lymphocytes | performed at [facility], [address] | K/uL | LAB | | | | [address], | | | | | | [place] [address] | | | | + + + + + + | Absolute | 1.10 (H)Comment: Testing | 0.00 - 0.80 | EXTERNAL | | | Monocytes | performed at [facility], [address] | K/uL | LAB | | | | [address], | | | | | | [place] [address] | | | | + + + + + + | Absolute | 0.01Comment: Testing | 0.00 - 0.50 | EXTERNAL | | | Eosinophils | performed at [facility], [address] | K/uL | LAB | | | | [address], | | | | | | [place] [address] | | | | + + + + + + | Absolute | 0.03Comment: Testing | 0.00 - 0.10 | EXTERNAL | | | Basophils | performed at [facility], [address] | K/uL | LAB | | | | [address], | | | | | | [place] [address] | | | | + + + + + + + + | Specimen | + + | Blood specimen | | (specimen) | + + + +---------+ + + | Performing | Address | City/State/Zipcode | Phone Number | | Organization | | | | + +---------+ + + | EXTERNAL LAB | | | | + +---------+ + + Magnesium (06/16/2016 3:52 AM PDT) + + + + + + | Component | Value | Ref Range | Performed | Pathologist | | | | | At | Signature | + + + + + + | Magnesium | 2.5 (H)Comment: Testing | 1.7 - 2.4 mg/dL | EXTERNAL | | | | performed at [facility], [address] | | LAB | | | | [address], | | | | | | [place] [address] | | | | + + + + + + + + | Specimen | + + | Blood specimen | | (specimen) | + + + +---------+ + + | Performing | Address | City/State/Zipcode | Phone Number | | Organization | | | | + +---------+ + + | EXTERNAL LAB | | | | + +---------+ + + Hemoglobin A1C (06/16/2016 3:52 AM PDT) + + + + + + | Component | Value | Ref Range | Performed | Pathologist | | | | | At | Signature | + + + + + + | Hemoglobin | 8.8 (H)Comment: The | 4.0 - 6.0 % | EXTERNAL | | | A1c | [employer] [employer] | | LAB | | | | Association considers a | | | | | | hemoglobin A1c result of | | | | | | <7.0% to be the goal of | | | | | | diabetic therapy. | | | | | | When results are | | | | | | consistently >8.0%, the | | | | | | ADA suggests | | | | | | reevaluation of the | | | | | | treatment regimen. The | | | | | | testing method used is | | | | | | certified traceable to | | | | | | the Diabetes Control and | | | | | | Complications Trial | | | | | | reference method.Testing | | | | | | performed at [facility], [address] | | | | | | [address] [facility], | | | | | | [place] [address] | | | | + + + + + + | Glycohemogl | 206Comment: The ADA | mg/dL | EXTERNAL | | | obin | considers an eAG result | | LAB | | | (GHb),Total | of LT 154 mg/dL to be | | | | | | the goal of diabetic | | | | | | therapy. Estimated | | | | | | Average Glucose | | | | | | calculated from | | | | | | hemoglobin A1c by use of | | | | | | the ADA recommended | | | | | | formula.Testing | | | | | | performed at [facility], [address] | | | | | | [facility], | | | | | | [place] [address] | | | | + + + + + + + + | Specimen | + + | Blood specimen | | (specimen) | + + + +---------+ + + | Performing | Address | City/State/Zipcode | Phone Number | | Organization | | | | + +---------+ + + | EXTERNAL LAB | | | | + +---------+ + + Basic Metabolic Panel (06/16/2016 3:52 AM PDT) + + + + + + | Component | Value | Ref Range | Performed | Pathologist | | | | | At | Signature | + + + + + + | Na | 141Comment: Testing | 135 - 145 | EXTERNAL | | | | performed at [facility], [address] | mmol/L | LAB | | | | [address], | | | | | | [place] [address] | | | | + + + + + + | K | 5.7 (H)Comment: Testing | 3.5 - 4.9 | EXTERNAL | | | | performed at [facility], [address] | mmol/L | LAB | | | | [address], | | | | | | [place] [address] | | | | + + + + + + | Cl | 107Comment: Testing | 99 - 109 mmol/L | EXTERNAL | | | | performed at [facility], [address] | | LAB | | | | [address], | | | | | | [place] [address] | | | | + + + + + + | CO2 | 25Comment: Testing | 23 - 32 mmol/L | EXTERNAL | | | | performed at [facility], [address] | | LAB | | | | [address], | | | | | | [place] [address] | | | | + + + + + + | Anion Gap | 15Comment: Testing | 5 - 20 mmol/L | EXTERNAL | | | | performed at [facility], [address] | | LAB | | | | [address], | | | | | | [place], [place] [address] | | | | + + + + + + | Glucose, | 230 (H)Comment: Testing | 65 - 99 mg/dL | EXTERNAL | | | Fasting | performed at [facility], [address] | | LAB | | | | [address], | | | | | | [place], [place] [address] | | | | + + + + + + | BUN | 29 (H)Comment: Testing | 8 - 25 mg/dL | EXTERNAL | | | | performed at [facility], [address] | | LAB | | | | [address], | | | | | | [place] [address] | | | | + + + + + + | Creatinine | 1.1Comment: Testing | 0.70 - 1.30 | EXTERNAL | | | | performed at [facility], [address] | mg/dL | LAB | | | | [address], | | | | | | [place] [address] | | | | + + + + + + | BUN/Creatin | 26Comment: Testing | | EXTERNAL | | | ine Ratio | performed at [facility], [address] | | LAB | | | | [facility], | | | | | | [place] [address] | | | | + + + + + + | Calcium | 7.7 (L)Comment: Testing | 8.5 - 10.5 | EXTERNAL | | | | performed at [facility], [address] | mg/dL | LAB | | | | [address], | | | | | | [place] [address] | | | | + + + + + + | Estimated | >60Comment: GFR <60: | mL/min/1.73m2 | EXTERNAL | | | GFR | CHRONIC KIDNEY DISEASE, | | LAB | | | | IF FOUND OVER A 3 MONTH | | | | | | PERIOD.GFR <15: KIDNEY | | | | | | FAILURE.FOR | | | | | | AMERICANS, MULTIPLY THE | | | | | | CALCULATED GFR BY | | | | | | 1.210.Testing performed | | | | | | at [facility], [address] | | | | | | [address], | | | | | | [place] [address] | | | | + + + + + + + + | Specimen | + + | Blood specimen | | (specimen) | + + + +---------+ + + | Performing | Address | City/State/Zipcode | Phone Number | | Organization | | | | + +---------+ + + | EXTERNAL LAB | | | | + +---------+ + + POC Glucose (06/16/2016 3:18 AM PDT) + + + + + + | Component | Value | Ref Range | Performed | Pathologist | | | | | At | Signature | + + + + + + | Glucose, | 196 (H)Comment: Testing | 65 - 99 mg/dL | EXTERNAL | | | Fingerstick | performed at [facility];[address] | | LAB | | | | [address];[place] | | | | | | [address] | | | | + + + + + + + + | Specimen | + + | | + + + +---------+ + + | Performing | Address | City/State/Zipcode | Phone Number | | Organization | | | | + +---------+ + + | EXTERNAL LAB | | | | + +---------+ + + POC Glucose (06/16/2016 2:11 AM PDT) + + + + + + | Component | Value | Ref Range | Performed | Pathologist | | | | | At | Signature | + + + + + + | Glucose, | 164 (H)Comment: Testing | 65 - 99 mg/dL | EXTERNAL | | | Fingerstick | performed at [facility];[address] | | LAB | | | | [address];[place], [place] | | | | | | [address] | | | | + + + + + + + + | Specimen | + + | | + + + +---------+ + + | Performing | Address | City/State/Zipcode | Phone Number | | Organization | | | | + +---------+ + + | EXTERNAL LAB | | | | + +---------+ + + Potassium (06/16/2016 1:36 AM PDT) + + + + + + | Component | Value | Ref Range | Performed | Pathologist | | | | | At | Signature | + + + + + + | K | 5.6 (H)Comment: Testing | 3.5 - 4.9 | EXTERNAL | | | | performed at [facility];[address] | mmol/L | LAB | | | | [address];[place] | | | | | | [address] | | | | + + + + + + + + | Specimen | + + | Blood specimen | | (specimen) | + + + +---------+ + + | Performing | Address | City/State/Zipcode | Phone Number | | Organization | | | | + +---------+ + + | EXTERNAL LAB | | | | + +---------+ + + POC Glucose (06/16/2016 1:12 AM PDT) + + + + + + | Component | Value | Ref Range | Performed | Pathologist | | | | | At | Signature | + + + + + + | Glucose, | 140 (H)Comment: Testing | 65 - 99 mg/dL | EXTERNAL | | | Fingerstick | performed at [facility];[address] | | LAB | | | | [address];[place], [place] | | | | | | [address] | | | | + + + + + + + + | Specimen | + + | | + + + +---------+ + + | Performing | Address | City/State/Zipcode | Phone Number | | Organization | | | | + +---------+ + + | EXTERNAL LAB | | | | + +---------+ + + POC Glucose (06/16/2016 12:08 AM PDT) + + + + + + | Component | Value | Ref Range | Performed | Pathologist | | | | | At | Signature | + + + + + + | Glucose, | 162 (H)Comment: Testing | 65 - 99 mg/dL | EXTERNAL | | | Fingerstick | performed at [facility];[address] | | LAB | | | | [address];[place] | | | | | | [address] | | | | + + + + + + + + | Specimen | + + | | + + + +---------+ + + | Performing | Address | City/State/Zipcode | Phone Number | | Organization | | | | + +---------+ + + | EXTERNAL LAB | | | | + +---------+ + + POC Glucose (06/15/2016 11:31 PM PDT) + + + + + + | Component | Value | Ref Range | Performed | Pathologist | | | | | At | Signature | + + + + + + | Glucose, | 136 (H)Comment: Testing | 65 - 99 mg/dL | EXTERNAL | | | Fingerstick | performed at [facility];[address] | | LAB | | | | [address];[place] | | | | | | [address] | | | | + + + + + + + + | Specimen | + + | | + + + +---------+ + + | Performing | Address | City/State/Zipcode | Phone Number | | Organization | | | | + +---------+ + + | EXTERNAL LAB | | | | + +---------+ + + POC Glucose (06/15/2016 10:13 PM PDT) + + + + + + | Component | Value | Ref Range | Performed | Pathologist | | | | | At | Signature | + + + + + + | Glucose, | 135 (H)Comment: Testing | 65 - 99 mg/dL | EXTERNAL | | | Fingerstick | performed at [facility];[address] | | LAB | | | | [address];[place] | | | | | | [address] | | | | + + + + + + + + | Specimen | + + | | + + + +---------+ + + | Performing | Address | City/State/Zipcode | Phone Number | | Organization | | | | + +---------+ + + | EXTERNAL LAB | | | | + +---------+ + + ECG 12 lead (06/15/2016 9:39 PM PDT) + + + + + + | Component | Value | Ref Range | Performed | Pathologist | | | | | At | Signature | + + + + + + | DIAGNOSIS: | Normal sinus rhythmRight | | EXTERNAL | | | | bundle branch | | LAB | | | | blockAbnormal ECGNo | | | | | | previous ECGs | | | | | | availableConfirmed by | | | | | | DAVID POLK ([id number]) on | | | | | | 06/16/2016 11:14:09 AM | | | | + + + + + + + + | Specimen | + + | | + + + + + | Narrative | Performed At | + + + | Historically converted procedure from [facility] | EXTERNAL LAB | + + + + +---------+ + + | Performing | Address | City/State/Zipcode | Phone Number | | Organization | | | | + +---------+ + + | EXTERNAL LAB | | | | + +---------+ + + Calcium, Ionized (06/15/2016 9:30 PM PDT) + + + + + + | Component | Value | Ref Range | Performed | Pathologist | | | | | At | Signature | + + + + + + | Calcium | 1.12Comment: Testing | 1.08 - 1.25 | EXTERNAL | | | (Calc) | performed at [facility];[address] | mmol/L | LAB | | | | [address];[place] | | | | | | [address] | | | | + + + + + + | pH, Bld | 7.263 (L)Comment: | 7.300 - 7.450 | EXTERNAL | | | | Testing performed at | | LAB | | | | [facility];[address];[place] [address] | | | | + + + + + + + + | Specimen | + + | Blood specimen | | (specimen) | + + + +---------+ + + | Performing | Address | City/State/Zipcode | Phone Number | | Organization | | | | + +---------+ + + | EXTERNAL LAB | | | | + +---------+ + + PTT (06/15/2016 9:28 PM PDT) + + + + + + | Component | Value | Ref Range | Performed | Pathologist | | | | | At | Signature | + + + + + + | aPTT, | 26Comment: Testing | 23 - 32 seconds | EXTERNAL | | | Patient | performed at [facility];[address] | | LAB | | | | [address];[place], [place] | | | | | | [address] | | | | + + + + + + + + | Specimen | + + | Blood specimen | | (specimen) | + + + +---------+ + + | Performing | Address | City/State/Zipcode | Phone Number | | Organization | | | | + +---------+ + + | EXTERNAL LAB | | | | + +---------+ + + Protime INR (06/15/2016 9:28 PM PDT) + + + + + + | Component | Value | Ref Range | Performed | Pathologist | | | | | At | Signature | + + + + + + | INR | 1.2Comment: REFERENCE | | EXTERNAL | | | | RANGE:0.9 - 1.2 | | LAB | | | | NON-ANTICOAGULATED2.0 | | | | | | - 3.0 ALL OTHER | | | | | | THERAPEUTIC | | | | | | INDICATIONS2.5 - 3.5 | | | | | | MECHANICAL HEART VALVES, | | | | | | RECURRENT OR SYSTEMIC | | | | | | EMBOLISMTesting | | | | | | performed at [facility];[address] | | | | | | [address];[place] | | | | | | [address] | | | | + + + + + + + + | Specimen | + + | Blood specimen | | (specimen) | + + + +---------+ + + | Performing | Address | City/State/Zipcode | Phone Number | | Organization | | | | + +---------+ + + | EXTERNAL LAB | | | | + +---------+ + + Fibrinogen (06/15/2016 9:28 PM PDT) + + + + + + | Component | Value | Ref Range | Performed | Pathologist | | | | | At | Signature | + + + + + + | Fibrinogen | 218Comment: Testing | 200 - 450 mg/dL | EXTERNAL | | | | performed at [facility];[address] | | LAB | | | | [address];[place], [place] | | | | | | [address] | | | | + + + + + + + + | Specimen | + + | Blood specimen | | (specimen) | + + + +---------+ + + | Performing | Address | City/State/Zipcode | Phone Number | | Organization | | | | + +---------+ + + | EXTERNAL LAB | | | | + +---------+ + + External Lab: CBC (06/15/2016 9:28 PM PDT) + + + + + + | Component | Value | Ref Range | Performed | Pathologist | | | | | At | Signature | + + + + + + | WBC | 18.36 (H)Comment: | 3.80 - 11.00 | EXTERNAL | | | | Testing performed at | K/uL | LAB | | | | [facility];[address];[place] [address] | | | | + + + + + + | Non- | 3.40 (L)Comment: Testing | 4.20 - 5.70 | EXTERNAL | | | Red Blood | performed at [facility];[address] | M/uL | LAB | | | Cells | [address];[place] | | | | | Counted | [id number] | | | | + + + + + + | Hemoglobin | 9.8 (L)Comment: Testing | 13.2 - 17.0 | EXTERNAL | | | | performed at [facility];[address] | g/dL | LAB | | | | [address];[place] | | | | | | [address] | | | | + + + + + + | Hematocrit, | 30.1 (L)Comment: Testing | 39.0 - 50.0 % | EXTERNAL | | | POC | performed at [facility];[address] | | LAB | | | | [address];[place] | | | | | | [address] | | | | + + + + + + | MCV | 88.3Comment: Testing | 80.0 - 100.0 fl | EXTERNAL | | | | performed at [facility];[address] | | LAB | | | | [address];[place] | | | | | | [address] | | | | + + + + + + | MCH | 28.9Comment: Testing | 27.0 - 34.0 pg | EXTERNAL | | | | performed at [facility];[address] | | LAB | | | | [address];[place] | | | | | | [address] | | | | + + + + + + | MCHC | 32.7Comment: Testing | 32.0 - 35.5 | EXTERNAL | | | | performed at [facility];[address] | g/dL | LAB | | | | [address];[place] | | | | | | [address] | | | | + + + + + + | RDW-CV | 41.1Comment: Testing | 37 - 53 fl | EXTERNAL | | | | performed at [facility];[address] | | LAB | | | | [address];[place] | | | | | | [address] | | | | + + + + + + | Platelet | 175Comment: Testing | 150 - 400 K/uL | EXTERNAL | | | Count | performed at [facility];[address] | | LAB | | | Plasma | [address];[place] | | | | | | [address] | | | | + + + + + + | MPV | 8.3Comment: Testing | fl | EXTERNAL | | | | performed at [facility];[address] | | LAB | | | | [address];[place] | | | | | | [address] | | | | + + + + + + | Differentia | MANUALComment: Testing | | EXTERNAL | | | l Type | performed at [facility];[address] | | LAB | | | | [address];[place] | | | | | | [address] | | | | + + + + + + | Segmented | 67Comment: Testing | % | EXTERNAL | | | Neutrophils | performed at [facility];[address] | | LAB | | | Manual | [address];[place] | | | | | | [address] | | | | + + + + + + | % Bands | 19Comment: Testing | % | EXTERNAL | | | | performed at [facility];[address] | | LAB | | | | [address];[place] | | | | | | [address] | | | | + + + + + + | Lymphocytes | 12Comment: Testing | % | EXTERNAL | | | Manual | performed at [facility];[address] | | LAB | | | | [address];[place] | | | | | | [address] | | | | + + + + + + | Monocytes | 2Comment: Testing | % | EXTERNAL | | | Manual | performed at [facility];[address] | | LAB | | | | [address];[place] | | | | | | [address] | | | | + + + + + + | Absolute | 12.30 (H)Comment: | 1.90 - 7.40 | EXTERNAL | | | Neutrophils | Testing performed at | K/uL | LAB | | | | [facility];[address];[place] [address] | | | | + + + + + + | Bands | 3.49 (H)Comment: Testing | 0.00 - 0.20 | EXTERNAL | | | Manual | performed at [facility];[address] | K/uL | LAB | | | | [address];[place] | | | | | | [address] | | | | + + + + + + | Absolute | 2.20Comment: Testing | 1.00 - 3.90 | EXTERNAL | | | Lymphocytes | performed at [facility];[address] | LAB | | | | [address];[place] | | | | | | [address] | | | | + + + + + + | Absolute | 0.37Comment: Testing | 0.00 - 0.80 | EXTERNAL | | | Monocytes | performed at [facility];[address] | LAB | | | | [address];[place] | | | | | | [address] | | | | + + + + + + | RBC | RBC AND PLT MORPHOLOGY | | EXTERNAL | | | Morphology | APPEAR NORMALComment: | | LAB | | | | Testing performed at | | | | | | [facility];[address] | | | | | | [place] [address] | | | | + + + + + + + + | Specimen | + + | Blood specimen | | (specimen) | + + + +---------+ + + | Performing | Address | City/State/Zipcode | Phone Number | | Organization | | | | + +---------+ + + | EXTERNAL LAB | | | | + +---------+ + + Magnesium (06/15/2016 9:28 PM PDT) + + + + + + | Component | Value | Ref Range | Performed | Pathologist | | | | | At | Signature | + + + + + + | Magnesium | 2.5 (H)Comment: Testing | 1.7 - 2.4 mg/dL | EXTERNAL | | | | performed at [facility];[address] | | LAB | | | | [address];[place] | | | | | | [address] | | | | + + + + + + + + | Specimen | + + | Blood specimen | | (specimen) | + + + +---------+ + + | Performing | Address | City/State/Zipcode | Phone Number | | Organization | | | | + +---------+ + + | EXTERNAL LAB | | | | + +---------+ + + Basic Metabolic Panel (06/15/2016 9:28 PM PDT) + + + + + + | Component | Value | Ref Range | Performed | Pathologist | | | | | At | Signature | + + + + + + | Na | 139Comment: Testing | 135 - 145 | EXTERNAL | | | | performed at [facility];888 | mmol/L | LAB | | | | [address];[place] | | | | | | [address] | | | | + + + + + + | K | 4.7Comment: Testing | 3.5 - 4.9 | EXTERNAL | | | | performed at [facility];888 | mmol/L | LAB | | | | [address];[place] | | | | | | [address] | | | | + + + + + + | Cl | 108Comment: Testing | 99 - 109 mmol/L | EXTERNAL | | | | performed at [facility];[address] | | LAB | | | | [address];[place] | | | | | | [address] | | | | + + + + + + | CO2 | 23Comment: Testing | 23 - 32 mmol/L | EXTERNAL | | | | performed at [facility];[address] | | LAB | | | | [address];[place] | | | | | | [address] | | | | + + + + + + | Anion Gap | 13Comment: Testing | 5 - 20 mmol/L | EXTERNAL | | | | performed at [facility];[address] | | LAB | | | | [address];[place] | | | | | | [address] | | | | + + + + + + | Glucose, | 156 (H)Comment: Testing | 65 - 99 mg/dL | EXTERNAL | | | Fasting | performed at [facility];[address] | | LAB | | | | [address];[place] | | | | | | [address] | | | | + + + + + + | BUN | 28 (H)Comment: Testing | 8 - 25 mg/dL | EXTERNAL | | | | performed at [facility];[address] | | LAB | | | | [address];[place] | | | | | | [address] | | | | + + + + + + | Creatinine | 1.2Comment: Testing | 0.70 - 1.30 | EXTERNAL | | | | performed at [facility];[address] | mg/dL | LAB | | | | [address];[place] | | | | | | [address] | | | | + + + + + + | BUN/Creatin | 23Comment: Testing | | EXTERNAL | | | ine Ratio | performed at [facility];[address] | | LAB | | | | [address];[place] | | | | | | [address] | | | | + + + + + + | Calcium | 7.8 (L)Comment: Testing | 8.5 - 10.5 | EXTERNAL | | | | performed at [facility];[address] | mg/dL | LAB | | | | [address];[place] | | | | | | [address] | | | | + + + + + + | Estimated | >60Comment: GFR <60: | mL/min/1.73m2 | EXTERNAL | | | GFR | CHRONIC KIDNEY DISEASE, | | LAB | | | | IF FOUND OVER A 3 MONTH | | | | | | PERIOD.GFR <15: KIDNEY | | | | | | FAILURE.FOR | | | | | | AMERICANS, MULTIPLY THE | | | | | | CALCULATED GFR BY | | | | | | 1.210.Testing performed | | | | | | at [facility];[address] | | | | | | [address];[place] [address] | | | | + + + + + + + + | Specimen | + + | Blood specimen | | (specimen) | + + + +---------+ + + | Performing | Address | City/State/Zipcode | Phone Number | | Organization | | | | + +---------+ + + | EXTERNAL LAB | | | | + +---------+ + + XR Chest 1 Vw (06/15/2016 9:25 PM PDT) + + | Specimen | + + | | + + + + + | Impressions | Performed At | + + + | 1. Enlarged cardiopericardial silhouette, status post median | | | sternotomy and CABG. Pulmonary venous congestion with possible mild | | | interstitial edema. Small left pleural effusion with left basilar | | | atelectasis. 2. Support apparatus as detailed above. 3. Interval | | | retraction of nasogastric tube with tip projecting over expected | | | location of distal thoracic esophagus. 4. Probably small | | | pneumomediastinum and possible trace left pneumothorax, related to | | | recent surgical intervention. | | + + + + + + | Narrative | Performed At | + + + | TR CABALLERO XR CHEST 1 VIEW 06/15/2016 9:25 PM HISTORY: 61 | | | years. Male. Tubes/line position TECHNIQUE: XR CHEST 1 VIEW. | | | 1 view(s) obtained. COMPARISON: Multiple, most recent | | | 06/15/2016 FINDINGS: Status post median sternotomy and CABG. | | | Enlarged cardiopericardial silhouette. Endotracheal tube in situ with | | | tip projecting at the level of thoracic inlet. Mediastinal drain and | | | left thoracostomy tube in situ. Low lung volumes. Pulmonary venous | | | congestion and possible mild interstitial edema. Small left pleural | | | effusion with left basilar atelectasis. Probably small | | | pneumomediastinum and possible trace left pneumothorax, related to | | | recent surgical intervention. Median sternotomy is are intact and | | | aligned. Right internal jugular approach vascular sheath in situ with | | | tip projecting over expected location of right internal jugular vein. | | | Interval retraction of nasogastric tube with tip projecting over | | | expected location of distal thoracic esophagus. | | + + + + + | Procedure Note | + + | Parker, Rad Conversion - 04/09/2019 7:51 PM PDT TR CABALLEROXR CHEST 1 VIEW06/15/2016 | | 9:25 PM HISTORY:61 years. Male. Tubes/line position TECHNIQUE:XR CHEST 1 VIEW. 1 | | view(s) obtained. COMPARISON:Multiple, most recent 06/15/2016 FINDINGS:Status post | | median sternotomy and CABG. Enlarged cardiopericardial silhouette. Endotracheal tube in | | situ with tip projecting at the level of thoracic inlet. Mediastinal drain and left | | thoracostomy tube in situ. Low lung volumes. Pulmonary venous congestion and possible | | mild interstitial edema. Small left pleural effusion with left basilar atelectasis. | | Probably small pneumomediastinum and possible trace left pneumothorax, related to recent | | surgical intervention. Median sternotomy is are intact and aligned. Right internal | | jugular approach vascular sheath in situ with tip projecting over expected location of | | right internal jugular vein. Interval retraction of nasogastric tube with tip projecting | | over expected location of distal thoracic esophagus. IMPRESSION: 1. Enlarged | | cardiopericardial silhouette, status post median sternotomy and CABG. Pulmonary venous | | congestion with possible mild interstitial edema. Small left pleural effusion with left | | basilar atelectasis.2. Support apparatus as detailed above.3. Interval retraction of | | nasogastric tube with tip projecting over expected location of distal thoracic | | esophagus.4. Probably small pneumomediastinum and possible trace left pneumothorax, | | related to recent surgical intervention. Electronically signed by Lexy Tenorio on | | 06/15/2016 9:51 PM | |IMPRESSION: | |1. Enlarged cardiopericardial silhouette, status post median sternotomy and CABG. Pulmonar y venous congestion with possible mild interstitial edema. Small left pleural effusion with left basilar atelectasis. | |2. Support apparatus as detailed above. | |3. Interval retraction of nasogastric tube with tip projecting over expected location of d istal thoracic esophagus. | |4. Probably small pneumomediastinum and possible trace left pneumothorax, related to recen t surgical intervention. | | | | | + + XR Chest 1 Vw (06/15/2016 9:10 PM PDT) + + | Specimen | + + | | + + + + + | Impressions | Performed At | + + + | 1. Enlarged cardiopericardial silhouette, status post median | | | sternotomy and CABG. Pulmonary venous congestion with possible mild | | | interstitial edema. Small left pleural effusion with left basilar | | | atelectasis. 2. Support apparatus as detailed above. 3. Probably | | | small pneumomediastinum and possible trace left pneumothorax, related | | | to recent surgical intervention. | | + + + + + + | Narrative | Performed At | + + + | TR CABALLERO XR CHEST 1 VIEW 06/15/2016 9:10 PM HISTORY: 61 | | | years. Male. Status post CABG. TECHNIQUE: XR CHEST 1 VIEW. | | | 1 view(s) obtained. COMPARISON: 06/15/2016 FINDINGS: | | | Status post median sternotomy and CABG. Enlarged cardiopericardial | | | silhouette. Endotracheal tube in situ with tip projecting at the level | | | of thoracic inlet. Mediastinal drain and left thoracostomy tube in | | | situ. Low lung volumes. Pulmonary venous congestion and possible | | | mild interstitial edema. Small left pleural effusion with left basilar | | | atelectasis. Probably small pneumomediastinum and possible trace left | | | pneumothorax, related to recent surgical intervention. Median | | | sternotomy is are intact and aligned. Right internal jugular | | | approach vascular sheath in situ. Nasogastric tube in situ with tip | | | projecting over expected location of stomach. | | + + + + + | Procedure Note | + + | Parker, Rad Conversion - 04/09/2019 7:51 PM PDT TR CABALLEROXR CHEST 1 VIEW06/15/2016 | | 9:10 PM HISTORY:61 years. Male. Status post CABG. TECHNIQUE:XR CHEST 1 VIEW. 1 | | view(s) obtained. COMPARISON:06/15/2016 FINDINGS:Status post median sternotomy and CABG. | | Enlarged cardiopericardial silhouette. Endotracheal tube in situ with tip projecting at | | the level of thoracic inlet. Mediastinal drain and left thoracostomy tube in situ. Low | | lung volumes. Pulmonary venous congestion and possible mild interstitial edema. Small | | left pleural effusion with left basilar atelectasis. Probably small pneumomediastinum | | and possible trace left pneumothorax, related to recent surgical intervention. Median | | sternotomy is are intact and aligned. Right internal jugular approach vascular sheath in | | situ. Nasogastric tube in situ with tip projecting over expected location of stomach. | | IMPRESSION: 1. Enlarged cardiopericardial silhouette, status post median sternotomy and | | CABG. Pulmonary venous congestion with possible mild interstitial edema. Small left | | pleural effusion with left basilar atelectasis.2. Support apparatus as detailed | | above.3. Probably small pneumomediastinum and possible trace left pneumothorax, related | | to recent surgical intervention. Electronically signed by Lexy Tenorio on | | 06/15/2016 9:50 PM | |and aligned. Right internal jugular approach vascular sheath in situ. Nasogastric tube in s itu with tip projecting over expected location of stomach. | | | |IMPRESSION: | |1. Enlarged cardiopericardial silhouette, status post median sternotomy and CABG. Pulmonar y venous congestion with possible mild interstitial edema. Small left pleural effusion with left basilar atelectasis. | |2. Support apparatus as detailed above. | |3. Probably small pneumomediastinum and possible trace left pneumothorax, related to recen t surgical intervention. | | | | | + + ECHO Transesophageal (HAY) - Periop (06/15/2016 8:15 PM PDT) + + | Specimen | + + | | + + + + + | Impressions | Performed At | + + + | 1. None. | | + + + + + + | Narrative | Performed At | + + + | Patient Name: Tr Caballero Date of : 1955 | | | Performing Physician: Britton Smith | | | | | | INDICATIONS UNKNOWN CONCLUSIONS 1. | | | None. FINDINGS -------- Procedure Details: Limited 2D, | | | Color-flow Doppler, Pulsed-wave and Continuous-wave Doppler. | | | Procedure Details: Intubated: Y Procedure Details: Anesthetic Type: | | | General anesthesia Procedure Details: Insertion: Easy Procedure | | | Details: Probe type: Omniplane Procedure Details: Complications: | | | N Ascending Aorta: Normal size. Ascending Aorta: No dissection. | | | Aortic Arch: Normal size. Aortic Arch: No dissection. Descending | | | Aorta: Normal size. Descending Aorta: No dissection. Aortic Valve: | | | Normal annulus. Aortic Valve: No Stenosis. Aortic Valve: Normal | | | tricuspid leaflet morphology. Aortic Valve: Normal leaflet motion. | | | Mitral Valve: The mitral annulus is normal. Mitral Valve: No mitral | | | stenosis. Mitral Valve: Mild-moderate mitral regurgitation. Mitral | | | Valve: Normal mitral leaflet morphology. Mitral Valve: Normal | | | mitral valve leaflet motion. Tricuspid Valve: Normal tricuspid | | | annulus. Tricuspid Valve: Trace regurgitation. Tricuspid Valve: | | | Normal leaflet motion. Right Atrium: Normal size. Right Atrium: No | | | spontaneous echo contrast. Left atrium: Normal size. Left atrium: No | | | spontaneous echo contrast. Left Atrial Appendage : No thrombus | | | noted. Intraatrial septum: Normal. Left Ventricle: LV size, wall | | | thickness and systolic function are normal, with an EF greater than | | | 55%. Left Ventricle: Left ventricular wall thickness is normal. Left | | | Ventricle: There is normal global left ventricular contractility. | | | Left Ventricle: Overall left ventricular systolic function is | | | low-normal with, an EF between 50 - 55 %. Right Ventricle: The right | | | ventricle is normal in size and function. Right Ventricle: The right | | | ventricle is normal in size. Interventricular septum : Normal | | | morphology. Pericardium: The pericardium is normal. Pleura: Normal. | | | Complications: None. MEASUREMENTS Show Design Supervisor: | | | GD Authenticated by: Britton Smith Report Date/Time: 06-21-2016 | | | 16:57:09 | | + + + + + | Procedure Note | + + | Parker, Rad Conversion - 04/09/2019 7:51 PM PDT Patient Name: Shala Caballero | | : 1955 Performing Physician: Britton | | Sarah INDICATIONS----- | | ------UNKNOWN CONCLUSIONS 1. None. FINDINGS--------Procedure Details: Limited | | 2D, Color-flow Doppler, Pulsed-wave and Continuous-wave Doppler.Procedure Details: | | Intubated: YProcedure Details: Anesthetic Type: General anesthesiaProcedure Details: | | Insertion: EasyProcedure Details: Probe type: OmniplaneProcedure Details: | | Complications: NAscending Aorta: Normal size.Ascending Aorta: No dissection.Aortic | | Arch: Normal size.Aortic Arch: No dissection.Descending Aorta: Normal size.Descending | | Aorta: No dissection.Aortic Valve: Normal annulus.Aortic Valve: No Stenosis.Aortic | | Valve: Normal tricuspid leaflet morphology.Aortic Valve: Normal leaflet motion.Mitral | | Valve: The mitral annulus is normal.Mitral Valve: No mitral stenosis.Mitral Valve: | | Mild-moderate mitral regurgitation.Mitral Valve: Normal mitral leaflet | | morphology.Mitral Valve: Normal mitral valve leaflet motion.Tricuspid Valve: Normal | | tricuspid annulus.Tricuspid Valve: Trace regurgitation.Tricuspid Valve: Normal leaflet | | motion.Right Atrium: Normal size.Right Atrium: No spontaneous echo contrast.Left atrium: | | Normal size.Left atrium: No spontaneous echo contrast.Left Atrial Appendage : No | | thrombus noted.Intraatrial septum: Normal.Left Ventricle: LV size, wall thickness and | | systolic function are normal, with an EF greater than 55%.Left Ventricle: Left | | ventricular wall thickness is normal.Left Ventricle: There is normal global left | | ventricular contractility.Left Ventricle: Overall left ventricular systolic function is | | low-normal with, an EF between 50 - 55 %.Right Ventricle: The right ventricle is normal | | in size and function.Right Ventricle: The right ventricle is normal in | | size.Interventricular septum : Normal morphology.Pericardium: The pericardium is | | normal.Pleura: Normal.Complications: None. MEASUREMENTS Show Design Supervisor: | | GDAuthenticated by: Britton [place] Date/Time: 06-21-2016 16:57:09 IMPRESSION: 1. | | None. | |Aortic Arch: No dissection. | |Descending Aorta: Normal size. | |Descending Aorta: No dissection. | |Aortic Valve: Normal annulus. | |Aortic Valve: No Stenosis. | |Aortic Valve: Normal tricuspid leaflet morphology. | |Aortic Valve: Normal leaflet motion. | |Mitral Valve: The mitral annulus is normal. | |Mitral Valve: No mitral stenosis. | |Mitral Valve: Mild-moderate mitral regurgitation. | |Mitral Valve: Normal mitral leaflet morphology. | |Mitral Valve: Normal mitral valve leaflet motion. | |Tricuspid Valve: Normal tricuspid annulus. | |Tricuspid Valve: Trace regurgitation. | |Tricuspid Valve: Normal leaflet motion. | |Right Atrium: Normal size. | |Right Atrium: No spontaneous echo contrast. | |Left atrium: Normal size. | |Left atrium: No spontaneous echo contrast. | |Left Atrial Appendage : No thrombus noted. | |Intraatrial septum: Normal. | |Left Ventricle: LV size, wall thickness and systolic function are normal, with an EF greate r than 55%. | |Left Ventricle: Left ventricular wall thickness is normal. | |Left Ventricle: There is normal global left ventricular contractility. | |Left Ventricle: Overall left ventricular systolic function is low-normal with, an EF betwee n 50 - 55 %. | |Right Ventricle: The right ventricle is normal in size and function. | |Right Ventricle: The right ventricle is normal in size. | |Interventricular septum : Normal morphology. | |Pericardium: The pericardium is normal. | |Pleura: Normal. | |Complications: None. | | | |MEASUREMENTS | | | | | |Show Design Supervisor: GD | |Authenticated by: Britton Smith | |Report Date/Time: 06-21-2016 16:57:09 | | | |IMPRESSION: | |1. None. | + + POC CG 4, ISTAT Arterial (06/15/2016 7:51 PM PDT) + + + + + + | Component | Value | Ref Range | Performed | Pathologist | | | | | At | Signature | + + + + + + | PH ART | 7.285 (L)Comment: | 7.350 - 7.450 | EXTERNAL | | | | Testing performed at | | LAB | | | | [facility];[address] [place] [address] | | | | | | Blvd;[place] [address] | | | | + + + + + + | PCO2 ART | 54 (H)Comment: Testing | 35 - 45 mmHg | EXTERNAL | | | | performed at [facility];[address] | | LAB | | | | [address];[place] | | | | | | [address] | | | | + + + + + + | PO2 ART | 153 (H)Comment: Testing | 80 - 105 mmHg | EXTERNAL | | | | performed at [facility];[address] | | LAB | | | | [address];[place] | | | | | | [address] | | | | + + + + + + | Lactate, | 1.8 (H)Comment: Testing | 0.36 - 1.25 | EXTERNAL | | | Arterial | performed at [facility];[address] | mmol/L | LAB | | | | [address];[place] | | | | | | [address] | | | | + + + + + + | HCO3 ART | 26Comment: Testing | 22 - 26 mmol/L | EXTERNAL | | | | performed at [facility];[address] | | LAB | | | | [address];[place] | | | | | | [address] | | | | + + + + + + | POC | 27Comment: Testing | 23 - 27 mEq/L | EXTERNAL | | | APPEARANCE | performed at [facility];[address] | | LAB | | | UA | [address];[place] | | | | | | [address] | | | | + + + + + + | Base | 1Comment: Testing | 0.0 - 2.0 | EXTERNAL | | | deficit | performed at [facility];[address] | mmol/L | LAB | | | | [address];[place] | | | | | | [address] | | | | + + + + + + | O2 SAT ART | 99 (H)Comment: Testing | 95 - 98 % | EXTERNAL | | | | performed at [facility];[address] | | LAB | | | | [address];[place] | | | | | | [address] | | | | + + + + + + + + | Specimen | + + | | + + + +---------+ + + | Performing | Address | City/State/Zipcode | Phone Number | | Organization | | | | + +---------+ + + | EXTERNAL LAB | | | | + +---------+ + + JARRETT HAMILTON CG8 Arterial (06/15/2016 7:48 PM PDT) + + + + + + | Component | Value | Ref Range | Performed | Pathologist | | | | | At | Signature | + + + + + + | PH ART | 7.279 (L)Comment: | 7.350 - 7.450 | EXTERNAL | | | | Testing performed at | | LAB | | | | [facility];[address] | | | | [address];[place] [address] | | | | + + + + + + | PCO2 ART | 54 (H)Comment: Testing | 35 - 45 mmHg | EXTERNAL | | | | performed at [facility];[address] | | LAB | | | | [address];[place] | | | | | | [address] | | | | + + + + + + | PO2 ART | 146 (H)Comment: Testing | 80 - 105 mmHg | EXTERNAL | | | | performed at [facility];[address] | | LAB | | | | [address];[place] | | | | | | [address] | | | | + + + + + + | HCO3 ART | 25Comment: Testing | 22 - 26 mmol/L | EXTERNAL | | | | performed at [facility];[address] | | LAB | | | | [address];[place] | | | | | | [address] | | | | + + + + + + | POC | 27Comment: Testing | 23 - 27 mEq/L | EXTERNAL | | | APPEARANCE | performed at [facility];[address] | | LAB | | | UA | [address];[place] | | | | | | [address] | | | | + + + + + + | Base | 1Comment: Testing | 0.0 - 2.0 | EXTERNAL | | | deficit | performed at [facility];[address] | mmol/L | LAB | | | | [address];[place] | | | | | | [address] | | | | + + + + + + | O2 SAT ART | 99 (H)Comment: Testing | 95 - 98 % | EXTERNAL | | | | performed at [facility];[address] | | LAB | | | | [address];[place] | | | | | | [address] | | | | + + + + + + | Sodium, POC | 136Comment: Testing | 135 - 145 mEq/L | EXTERNAL | | | | performed at [facility];[address] | | LAB | | | | [address];[place] | | | | | | [address] | | | | + + + + + + | Potassium, | 5.3 (H)Comment: Testing | 3.5 - 5.0 mEq/L | EXTERNAL | | | POC | performed at [facility];[address] | | LAB | | | | [address];[place] | | | | | | [address] | | | | + + + + + + | Ionized | 1.41 (H)Comment: Testing | 1.12 - 1.32 | EXTERNAL | | | Calcium, | performed at [facility];[address] | mmol/L | LAB | | | POC | [address];[place] | | | | | | [address] | | | | + + + + + + | Glucose, | 145 (H)Comment: Testing | 65 - 99 mg/dL | EXTERNAL | | | POC | performed at [facility];[address] | | LAB | | | | [address];[place] | | | | | | [address] | | | | + + + + + + | Hematocrit, | 26 (L)Comment: Testing | 40.0 - 50.0 % | EXTERNAL | | | POC | performed at [facility];[address] | | LAB | | | | [address];[place] | | | | | | [address] | | | | + + + + + + | Hemoglobin, | 8.8 (L)Comment: Testing | 13.7 - 16.7 | EXTERNAL | | | POC | performed at [facility];[address] | g/dL | LAB | | | | [address];[place] | | | | | | [address] | | | | + + + + + + + + | Specimen | + + | | + + + +---------+ + + | Performing | Address | City/State/Zipcode | Phone Number | | Organization | | | | + +---------+ + + | EXTERNAL LAB | | | | + +---------+ + + POC JOY, CG8, Arterial (06/15/2016 6:51 PM PDT) + + + + + + | Component | Value | Ref Range | Performed | Pathologist | | | | | At | Signature | + + + + + + | PH ART | 7.383Comment: Testing | 7.350 - 7.450 | EXTERNAL | | | | performed at [facility];[address] | | LAB | | | | [address];[place] | | | | | | [address] | | | | + + + + + + | PCO2 ART | 46 (H)Comment: Testing | 35 - 45 mmHg | EXTERNAL | | | | performed at [facility];[address] | | LAB | | | | [address];[place] | | | | | | [address] | | | | + + + + + + | PO2 ART | 289 (H)Comment: Testing | 80 - 105 mmHg | EXTERNAL | | | | performed at [facility];[address] | | LAB | | | | [address];[place] | | | | | | [address] | | | | + + + + + + | HCO3 ART | 27 (H)Comment: Testing | 22 - 26 mmol/L | EXTERNAL | | | | performed at [facility];[address] | | LAB | | | | [address];[place] | | | | | | [address] | | | | + + + + + + | POC | 28 (H)Comment: Testing | 23 - 27 mEq/L | EXTERNAL | | | APPEARANCE | performed at [facility];[address] | | LAB | | | UA | [address];[place] | | | | | | [address] | | | | + + + + + + | Base | 2Comment: Testing | 0 - 3 mEq/L | EXTERNAL | | | Excess, | performed at [facility];[address] | | LAB | | | Arterial | [address];[place] | | | | | | [address] | | | | + + + + + + | O2 SAT ART | 100 (H)Comment: Testing | 95 - 98 % | EXTERNAL | | | | performed at [facility];[address] | | LAB | | | | [address];[place] | | | | | | [address] | | | | + + + + + + | Sodium, POC | 134 (L)Comment: Testing | 135 - 145 mEq/L | EXTERNAL | | | | performed at [facility];[address] | | LAB | | | | [address];[place] | | | | | | [address] | | | | + + + + + + | Potassium, | 6.5 (HH)Comment: Testing | 3.5 - 5.0 mEq/L | EXTERNAL | | | POC | performed at [facility];[address] | | LAB | | | | [address];[place] | | | | | | [address] | | | | + + + + + + | Ionized | 1.04 (L)Comment: Testing | 1.12 - 1.32 | EXTERNAL | | | Calcium, | performed at [facility];[address] | mmol/L | LAB | | | POC | [address];[place] | | | | | | [address] | | | | + + + + + + | Glucose, | 152 (H)Comment: Testing | 65 - 99 mg/dL | EXTERNAL | | | POC | performed at [facility];[address] | | LAB | | | | [address];[place] | | | | | | [address] | | | | + + + + + + | Hematocrit, | 26 (L)Comment: Testing | 40.0 - 50.0 % | EXTERNAL | | | POC | performed at [facility];[address] | | LAB | | | | [address];[place] | | | | | | [address] | | | | + + + + + + | Hemoglobin, | 8.8 (L)Comment: Testing | 13.7 - 16.7 | EXTERNAL | | | POC | performed at [facility];888 | g/dL | LAB | | | | [address];[place] | | | | | | [address] | | | | + + + + + + + + | Specimen | + + | | + + + +---------+ + + | Performing | Address | City/State/Zipcode | Phone Number | | Organization | | | | + +---------+ + + | EXTERNAL LAB | | | | + +---------+ + + POC ISTAT, CG8, Arterial (06/15/2016 6:24 PM PDT) + + + + + + | Component | Value | Ref Range | Performed | Pathologist | | | | | At | Signature | + + + + + + | PH ART | 7.389Comment: Testing | 7.350 - 7.450 | EXTERNAL | | | | performed at [facility];[address] | | LAB | | | | [address];[place] | | | | | | [address] | | | | + + + + + + | PCO2 ART | 48 (H)Comment: Testing | 35 - 45 mmHg | EXTERNAL | | | | performed at [facility];[address] | | LAB | | | | [address];[place] | | | | | | [address] | | | | + + + + + + | PO2 ART | 261 (H)Comment: Testing | 80 - 105 mmHg | EXTERNAL | | | | performed at [facility];[address] | | LAB | | | | [address];[place] | | | | | | [address] | | | | + + + + + + | HCO3 ART | 29 (H)Comment: Testing | 22 - 26 mmol/L | EXTERNAL | | | | performed at [facility];[address] | | LAB | | | | [address];[place] | | | | | | [address] | | | | + + + + + + | POC | 30 (H)Comment: Testing | 23 - 27 mEq/L | EXTERNAL | | | APPEARANCE | performed at [facility];[address] | | LAB | | | UA | [address];[place] | | | | | | [address] | | | | + + + + + + | Base | 4 (H)Comment: Testing | 0 - 3 mEq/L | EXTERNAL | | | Excess, | performed at [facility];888 | | LAB | | | Arterial | [address];[place] | | | | | | [address] | | | | + + + + + + | O2 SAT ART | 100 (H)Comment: Testing | 95 - 98 % | EXTERNAL | | | | performed at [facility];[address] | | LAB | | | | [address];[place] | | | | | | [address] | | | | + + + + + + | Sodium, POC | 134 (L)Comment: Testing | 135 - 145 mEq/L | EXTERNAL | | | | performed at [facility];888 | | LAB | | | | [address];[place] | | | | | | [address] | | | | + + + + + + | Potassium, | 6.5 (HH)Comment: Testing | 3.5 - 5.0 mEq/L | EXTERNAL | | | POC | performed at [facility];[address] | | LAB | | | | [address];[place] | | | | | | [address] | | | | + + + + + + | Ionized | 1.04 (L)Comment: Testing | 1.12 - 1.32 | EXTERNAL | | | Calcium, | performed at [facility];888 | mmol/L | LAB | | | POC | [address];[place] | | | | | | [address] | | | | + + + + + + | Glucose, | 145 (H)Comment: Testing | 65 - 99 mg/dL | EXTERNAL | | | POC | performed at [facility];[address] | | LAB | | | | [address];[place] | | | | | | [address] | | | | + + + + + + | Hematocrit, | 27 (L)Comment: Testing | 40.0 - 50.0 % | EXTERNAL | | | POC | performed at [facility];888 | | LAB | | | | [address];[place] | | | | | | [address] | | | | + + + + + + | Hemoglobin, | 9.2 (L)Comment: Testing | 13.7 - 16.7 | EXTERNAL | | | POC | performed at [facility];888 | g/dL | LAB | | | | [address];[place] | | | | | | [address] | | | | + + + + + + + + | Specimen | + + | | + + + +---------+ + + | Performing | Address | City/State/Zipcode | Phone Number | | Organization | | | | + +---------+ + + | EXTERNAL LAB | | | | + +---------+ + + POC JOY, CG8, Arterial (06/15/2016 6:03 PM PDT) + + + + + + | Component | Value | Ref Range | Performed | Pathologist | | | | | At | Signature | + + + + + + | PH ART | 7.378Comment: Testing | 7.350 - 7.450 | EXTERNAL | | | | performed at [facility] | | LAB | | | | [address];[place] | | | | | | [address] | | | | + + + + + + | PCO2 ART | 49 (H)Comment: Testing | 35 - 45 mmHg | EXTERNAL | | | | performed at [facility];[address] | | LAB | | | | [address];[place] | | | | | | [address] | | | | + + + + + + | PO2 ART | 263 (H)Comment: Testing | 80 - 105 mmHg | EXTERNAL | | | | performed at [facility];[address] | | LAB | | | | [address];[place] | | | | | | [address] | | | | + + + + + + | HCO3 ART | 29 (H)Comment: Testing | 22 - 26 mmol/L | EXTERNAL | | | | performed at [facility];[address] | | LAB | | | | [address];[place] | | | | | | [address] | | | | + + + + + + | POC | 30 (H)Comment: Testing | 23 - 27 mEq/L | EXTERNAL | | | APPEARANCE | performed at [facility];[address] | | LAB | | | UA | [address];[place] | | | | | | [address] | | | | + + + + + + | Base | 4 (H)Comment: Testing | 0 - 3 mEq/L | EXTERNAL | | | Excess, | performed at [facility];[address] | | LAB | | | Arterial | [address];[place] | | | | | | [address] | | | | + + + + + + | O2 SAT ART | 100 (H)Comment: Testing | 95 - 98 % | EXTERNAL | | | | performed at [facility];[address] | | LAB | | | | [address];[place] | | | | | | [address] | | | | + + + + + + | Sodium, POC | 134 (L)Comment: Testing | 135 - 145 mEq/L | EXTERNAL | | | | performed at [facility];[address] | | LAB | | | | [address];[place] | | | | | | [address] | | | | + + + + + + | Potassium, | 6.8 (HH)Comment: Testing | 3.5 - 5.0 mEq/L | EXTERNAL | | | POC | performed at [facility];[address] | | LAB | | | | [address];[place] | | | | | | [address] | | | | + + + + + + | Ionized | 1.06 (L)Comment: Testing | 1.12 - 1.32 | EXTERNAL | | | Calcium, | performed at [facility];888 | mmol/L | LAB | | | POC | [address];[place] | | | | | | [address] | | | | + + + + + + | Glucose, | 146 (H)Comment: Testing | 65 - 99 mg/dL | EXTERNAL | | | POC | performed at [facility];[address] | | LAB | | | | [address];[place] | | | | | | [address] | | | | + + + + + + | Hematocrit, | 28 (L)Comment: Testing | 40.0 - 50.0 % | EXTERNAL | | | POC | performed at [facility];[address] | | LAB | | | | [address];[place] | | | | | | [address] | | | | + + + + + + | Hemoglobin, | 9.5 (L)Comment: Testing | 13.7 - 16.7 | EXTERNAL | | | POC | performed at [facility];888 | g/dL | LAB | | | | [address];[place] | | | | | | [address] | | | | + + + + + + + + | Specimen | + + | | + + + +---------+ + + | Performing | Address | City/State/Zipcode | Phone Number | | Organization | | | | + +---------+ + + | EXTERNAL LAB | | | | + +---------+ + + POC JOY, CG8, Arterial (06/15/2016 4:44 PM PDT) + + + + + + | Component | Value | Ref Range | Performed | Pathologist | | | | | At | Signature | + + + + + + | PH ART | 7.303 (L)Comment: | 7.350 - 7.450 | EXTERNAL | | | | Testing performed at | | LAB | | | | [facility];[address];[place] [address] | | | | + + + + + + | PCO2 ART | 57 (H)Comment: Testing | 35 - 45 mmHg | EXTERNAL | | | | performed at [facility];[address] | | LAB | | | | [address];[place] | | | | | | [address] | | | | + + + + + + | PO2 ART | 232 (H)Comment: Testing | 80 - 105 mmHg | EXTERNAL | | | | performed at [facility];[address] | | LAB | | | | [address];[place] | | | | | | [address] | | | | + + + + + + | HCO3 ART | 28 (H)Comment: Testing | 22 - 26 mmol/L | EXTERNAL | | | | performed at [facility];[address] | | LAB | | | | [address];[place] | | | | | | [address] | | | | + + + + + + | POC | 30 (H)Comment: Testing | 23 - 27 mEq/L | EXTERNAL | | | APPEARANCE | performed at [facility];[address] | | LAB | | | UA | [address];[place] | | | | | | [address] | | | | + + + + + + | Base | 2Comment: Testing | 0 - 3 mEq/L | EXTERNAL | | | Excess, | performed at [facility];[address] | | LAB | | | Arterial | [address];[place] | | | | | | [address] | | | | + + + + + + | O2 SAT ART | 100 (H)Comment: Testing | 95 - 98 % | EXTERNAL | | | | performed at [facility];[address] | | LAB | | | | [address];[place] | | | | | | [address] | | | | + + + + + + | Sodium, POC | 136Comment: Testing | 135 - 145 mEq/L | EXTERNAL | | | | performed at [facility];[address] | | LAB | | | | [address];[place] | | | | | | [address] | | | | + + + + + + | Potassium, | 4.5Comment: Testing | 3.5 - 5.0 mEq/L | EXTERNAL | | | POC | performed at [facility];[address] | | LAB | | | | [address];[place] | | | | | | [address] | | | | + + + + + + | Ionized | 1.15Comment: Testing | 1.12 - 1.32 | EXTERNAL | | | Calcium, | performed at [facility];888 | mmol/L | LAB | | | POC | [address];[place] | | | | | | [address] | | | | + + + + + + | Glucose, | 140 (H)Comment: Testing | 65 - 99 mg/dL | EXTERNAL | | | POC | performed at [facility];[address] | | LAB | | | | [address];[place] | | | | | | [address] | | | | + + + + + + | Hematocrit, | 35 (L)Comment: Testing | 40.0 - 50.0 % | EXTERNAL | | | POC | performed at [facility];[address] | | LAB | | | | [address];[place] | | | | | | [address] | | | | + + + + + + | Hemoglobin, | 11.9 (L)Comment: Testing | 13.7 - 16.7 | EXTERNAL | | | POC | performed at [facility];888 | g/dL | LAB | | | | [address];[place] | | | | | | [address] | | | | + + + + + + + + | Specimen | + + | | + + + +---------+ + + | Performing | Address | City/State/Zipcode | Phone Number | | Organization | | | | + +---------+ + + | EXTERNAL LAB | | | | + +---------+ + + POC CG 4, ISTAT Arterial (06/15/2016 3:39 PM PDT) + + + + + + | Component | Value | Ref Range | Performed | Pathologist | | | | | At | Signature | + + + + + + | PH ART | 7.361Comment: Testing | 7.350 - 7.450 | EXTERNAL | | | | performed at [facility];[address] | | LAB | | | | [address];[place] | | | | | | [address] | | | | + + + + + + | PCO2 ART | 51 (H)Comment: Testing | 35 - 45 mmHg | EXTERNAL | | | | performed at [facility];[address] | | LAB | | | | [address];[place] | | | | | | [address] | | | | + + + + + + | PO2 ART | 276 (H)Comment: Testing | 80 - 105 mmHg | EXTERNAL | | | | performed at [facility];[address] | | LAB | | | | [address];[place] | | | | | | [address] | | | | + + + + + + | Lactate, | 0.6Comment: Testing | 0.36 - 1.25 | EXTERNAL | | | Arterial | performed at [facility];888 | mmol/L | LAB | | | | [address];[place] | | | | | | [address] | | | | + + + + + + | HCO3 ART | 29 (H)Comment: Testing | 22 - 26 mmol/L | EXTERNAL | | | | performed at [facility];[address] | | LAB | | | | [address];[place] | | | | | | [address] | | | | + + + + + + | POC | 30 (H)Comment: Testing | 23 - 27 mEq/L | EXTERNAL | | | APPEARANCE | performed at [facility];[address] | | LAB | | | UA | [address];[place] | | | | | | [address] | | | | + + + + + + | Base | 3Comment: Testing | 0 - 3 mEq/L | EXTERNAL | | | Excess, | performed at [facility];[address] | | LAB | | | Arterial | [address];[place] | | | | | | [address] | | | | + + + + + + | O2 SAT ART | 100 (H)Comment: Testing | 95 - 98 % | EXTERNAL | | | | performed at [facility];[address] | | LAB | | | | [address];[place] | | | | | | [address] | | | | + + + + + + + + | Specimen | + + | | + + + +---------+ + + | Performing | Address | City/State/Zipcode | Phone Number | | Organization | | | | + +---------+ + + | EXTERNAL LAB | | | | + +---------+ + + POC ISTAT, CG8, Arterial (06/15/2016 3:35 PM PDT) + + + + + + | Component | Value | Ref Range | Performed | Pathologist | | | | | At | Signature | + + + + + + | PH ART | 7.356Comment: Testing | 7.350 - 7.450 | EXTERNAL | | | | performed at [facility];8 | | LAB | | | | [address];[place], [place] | | | | | | [address] | | | | + + + + + + | PCO2 ART | 50 (H)Comment: Testing | 35 - 45 mmHg | EXTERNAL | | | | performed at [facility];[address] | | LAB | | | | [address];[place] | | | | | | [address] | | | | + + + + + + | PO2 ART | 274 (H)Comment: Testing | 80 - 105 mmHg | EXTERNAL | | | | performed at [facility];[address] | | LAB | | | | [address];[place] | | | | | | [address] | | | | + + + + + + | HCO3 ART | 28 (H)Comment: Testing | 22 - 26 mmol/L | EXTERNAL | | | | performed at [facility];[address] | | LAB | | | | [address];[place] | | | | | | [address] | | | | + + + + + + | POC | 29 (H)Comment: Testing | 23 - 27 mEq/L | EXTERNAL | | | APPEARANCE | performed at [facility];[address] | | LAB | | | UA | [address];[place] | | | | | | [address] | | | | + + + + + + | Base | 2Comment: Testing | 0 - 3 mEq/L | EXTERNAL | | | Excess, | performed at [facility];888 | | LAB | | | Arterial | [address];[place] | | | | | | [address] | | | | + + + + + + | O2 SAT ART | 100 (H)Comment: Testing | 95 - 98 % | EXTERNAL | | | | performed at [facility];[address] | | LAB | | | | [address];[place] | | | | | | [address] | | | | + + + + + + | Sodium, POC | 136Comment: Testing | 135 - 145 mEq/L | EXTERNAL | | | | performed at [facility];[address] | | LAB | | | | [address];[place] | | | | | | [address] | | | | + + + + + + | Potassium, | 4.6Comment: Testing | 3.5 - 5.0 mEq/L | EXTERNAL | | | POC | performed at [facility];[address] | | LAB | | | | [address];[place] | | | | | | [address] | | | | + + + + + + | Ionized | 1.14Comment: Testing | 1.12 - 1.32 | EXTERNAL | | | Calcium, | performed at [facility];888 | mmol/L | LAB | | | POC | [address];[place] | | | | | | [address] | | | | + + + + + + | Glucose, | 102 (H)Comment: Testing | 65 - 99 mg/dL | EXTERNAL | | | POC | performed at [facility];[address] | | LAB | | | | [address];[place] | | | | | | [address] | | | | + + + + + + | Hematocrit, | 35 (L)Comment: Testing | 40.0 - 50.0 % | EXTERNAL | | | POC | performed at [facility];[address] | | LAB | | | | [address];[place] | | | | | | [address] | | | | + + + + + + | Hemoglobin, | 11.9 (L)Comment: Testing | 13.7 - 16.7 | EXTERNAL | | | POC | performed at [facility];888 | g/dL | LAB | | | | [address];[place] | | | | | | [address] | | | | + + + + + + + + | Specimen | + + | | + + + +---------+ + + | Performing | Address | City/State/Zipcode | Phone Number | | Organization | | | | + +---------+ + + | EXTERNAL LAB | | | | + +---------+ + + POC Glucose (06/15/2016 11:55 AM PDT) + + + + + + | Component | Value | Ref Range | Performed | Pathologist | | | | | At | Signature | + + + + + + | Glucose, | 107 (H)Comment: Testing | 65 - 99 mg/dL | EXTERNAL | | | Fingerstick | performed at [facility];[address] | | LAB | | | | [address];[place] | | | | | | [address] | | | | + + + + + + + + | Specimen | + + | | + + + +---------+ + + | Performing | Address | City/State/Zipcode | Phone Number | | Organization | | | | + +---------+ + + | EXTERNAL LAB | | | | + +---------+ + + External Lab: CBC (06/15/2016 7:21 AM PDT) + + + + + + | Component | Value | Ref Range | Performed | Pathologist | | | | | At | Signature | + + + + + + | WBC | 9.69Comment: Testing | 3.80 - 11.00 | EXTERNAL | | | | performed at [facility];888 | K/uL | LAB | | | | [address];[place] | | | | | | [address] | | | | + + + + + + | Non- | 4.49Comment: Testing | 4.20 - 5.70 | EXTERNAL | | | Red Blood | performed at [facility];888 | M/uL | LAB | | | Cells | [address];[place] | | | | | Counted | [address] | | | | + + + + + + | Hemoglobin | 12.9 (L)Comment: Testing | 13.2 - 17.0 | EXTERNAL | | | | performed at [facility];888 | g/dL | LAB | | | | [address];[place] | | | | | | [address] | | | | + + + + + + | Hematocrit, | 39.0Comment: Testing | 39.0 - 50.0 % | EXTERNAL | | | POC | performed at [facility];[address] | | LAB | | | | [address];[place] | | | | | | [address] | | | | + + + + + + | MCV | 87.0Comment: Testing | 80.0 - 100.0 fl | EXTERNAL | | | | performed at [facility];[address] | | LAB | | | | [address];[place] | | | | | | [address] | | | | + + + + + + | MCH | 28.7Comment: Testing | 27.0 - 34.0 pg | EXTERNAL | | | | performed at [facility];[address] | | LAB | | | | [address];[place] | | | | | | [address] | | | | + + + + + + | MCHC | 33.0Comment: Testing | 32.0 - 35.5 | EXTERNAL | | | | performed at [facility];888 | g/dL | LAB | | | | [address];[place] | | | | | | [address] | | | | + + + + + + | RDW-CV | 40.7Comment: Testing | 37 - 53 fl | EXTERNAL | | | | performed at [facility];[address] | | LAB | | | | [address];[place] | | | | | | [address] | | | | + + + + + + | Platelet | 206Comment: Testing | 150 - 400 K/uL | EXTERNAL | | | Count | performed at [facility];[address] | | LAB | | | Plasma | [address];[place] | | | | | | [address] | | | | + + + + + + | MPV | 9.0Comment: Testing | fl | EXTERNAL | | | | performed at [facility];[address] | | LAB | | | | [address];[place] | | | | | | [address] | | | | + + + + + + | Differentia | AUTOMATEDComment: | | EXTERNAL | | | l Type | Testing performed at | | LAB | | | | [facility];[address];[place] [address] | | | | + + + + + + | % Segmented | 65.29Comment: Testing | % | EXTERNAL | | | | performed at [facility];[address] | | LAB | | | Neutrophils | [address];[place] | | | | | | [address] | | | | + + + + + + | % | 21.11Comment: Testing | % | EXTERNAL | | | Lymphocytes | performed at [facility];[address] | | LAB | | | | [address];[place] | | | | | | [address] | | | | + + + + + + | % Monocytes | 8.10Comment: Testing | % | EXTERNAL | | | | performed at [facility];[address] | | LAB | | | | [address];[place] | | | | | | [address] | | | | + + + + + + | % | 5.00Comment: Testing | % | EXTERNAL | | | Eosinophils | performed at [facility];[address] | | LAB | | | | [address];[place] | | | | | | [address] | | | | + + + + + + | % Basophils | 0.50Comment: Testing | % | EXTERNAL | | | | performed at [facility];[address] | | LAB | | | | [address];[place] | | | | | | [address] | | | | + + + + + + | Absolute | 6.33Comment: Testing | 1.90 - 7.40 | EXTERNAL | | | Segmented | performed at [facility];888 | K/uL | LAB | | | Neutrophils | [address];[place] | | | | | | [address] | | | | + + + + + + | Absolute | 2.05Comment: Testing | 1.00 - 3.90 | EXTERNAL | | | Lymphocytes | performed at [facility];888 | K/uL | LAB | | | | [address];[place] | | | | | | [address] | | | | + + + + + + | Absolute | 0.78Comment: Testing | 0.00 - 0.80 | EXTERNAL | | | Monocytes | performed at [facility];888 | K/uL | LAB | | | | [address];[place] | | | | | | [address] | | | | + + + + + + | Absolute | 0.49Comment: Testing | 0.00 - 0.50 | EXTERNAL | | | Eosinophils | performed at [facility];888 | K/uL | LAB | | | | [address];[place] | | | | | | [address] | | | | + + + + + + | Absolute | 0.05Comment: Testing | 0.00 - 0.10 | EXTERNAL | | | Basophils | performed at [facility];[address] | K/uL | LAB | | | | [address];[place] | | | | | | [address] | | | | + + + + + + + + | Specimen | + + | Blood specimen | | (specimen) | + + + +---------+ + + | Performing | Address | City/State/Zipcode | Phone Number | | Organization | | | | + +---------+ + + | EXTERNAL LAB | | | | + +---------+ + + Magnesium (06/15/2016 7:21 AM PDT) + + + + + + | Component | Value | Ref Range | Performed | Pathologist | | | | | At | Signature | + + + + + + | Magnesium | 2.3Comment: Testing | 1.7 - 2.4 mg/dL | EXTERNAL | | | | performed at [facility];[address] | | LAB | | | | [address];[place], [place] | | | | | | [address] | | | | + + + + + + + + | Specimen | + + | Blood specimen | | (specimen) | + + + +---------+ + + | Performing | Address | City/State/Zipcode | Phone Number | | Organization | | | | + +---------+ + + | EXTERNAL LAB | | | | + +---------+ + + Comprehensive Metabolic Panel (06/15/2016 7:21 AM PDT) + + + + + + | Component | Value | Ref Range | Performed | Pathologist | | | | | At | Signature | + + + + + + | Na | 137Comment: Testing | 135 - 145 | EXTERNAL | | | | performed at [facility];888 | mmol/L | LAB | | | | [address];[place] | | | | | | [address] | | | | + + + + + + | K | 4.5Comment: Testing | 3.5 - 4.9 | EXTERNAL | | | | performed at [facility];[address] | mmol/L | LAB | | | | [address];[place] | | | | | | [address] | | | | + + + + + + | Cl | 100Comment: Testing | 99 - 109 mmol/L | EXTERNAL | | | | performed at [facility];[address] | | LAB | | | | [address];[place] | | | | | | [address] | | | | + + + + + + | CO2 | 31Comment: Testing | 23 - 32 mmol/L | EXTERNAL | | | | performed at [facility];[address] | | LAB | | | | [address];[place] | | | | | | [address] | | | | + + + + + + | Anion Gap | 10Comment: Testing | 5 - 20 mmol/L | EXTERNAL | | | | performed at [facility];[address] | | LAB | | | | [address];[place] | | | | | | [address] | | | | + + + + + + | Glucose, | 92Comment: Testing | 65 - 99 mg/dL | EXTERNAL | | | Fasting | performed at [facility];[address] | | LAB | | | | [address];[place] | | | | | | [address] | | | | + + + + + + | BUN | 30 (H)Comment: Testing | 8 - 25 mg/dL | EXTERNAL | | | | performed at [facility];[address] | | LAB | | | | [address];[place] | | | | | | [address] | | | | + + + + + + | Creatinine | 0.93Comment: Testing | 0.70 - 1.30 | EXTERNAL | | | | performed at [facility];[address] | mg/dL | LAB | | | | [address];[place] | | | | | | [address] | | | | + + + + + + | BUN/Creatin | 32Comment: Testing | | EXTERNAL | | | ine Ratio | performed at [facility];[address] | | LAB | | | | [address];[place] | | | | | | [address] | | | | + + + + + + | Calcium | 8.7Comment: Testing | 8.5 - 10.5 | EXTERNAL | | | | performed at [facility];[address] | mg/dL | LAB | | | | [address];[place] | | | | | | [address] | | | | + + + + + + | Protein, | 6.9Comment: Testing | 6.3 - 8.2 g/dL | EXTERNAL | | | Total | performed at [facility];[address] | | LAB | | | | [address];[place] | | | | | | [address] | | | | + + + + + + | Albumin | 3.3Comment: Testing | 3.3 - 4.8 g/dL | EXTERNAL | | | | performed at [facility];[address] | | LAB | | | | [address];[place] | | | | | | [address] | | | | + + + + + + | Globulin | 3.6Comment: Testing | 1.3 - 4.9 g/dL | EXTERNAL | | | | performed at [facility];[address] | | LAB | | | | [address];[place] | | | | | | [address] | | | | + + + + + + | A/G Ratio | 0.9 (L)Comment: Testing | 1.0 - 2.4 | EXTERNAL | | | | performed at [facility];[address] | | LAB | | | | [address];[place] | | | | | | [address] | | | | + + + + + + | Bilirubin | 0.5Comment: Testing | 0.1 - 1.5 mg/dL | EXTERNAL | | | Total | performed at [facility];[address] | | LAB | | | | [address];[place] | | | | | | [address] | | | | + + + + + + | ALP, | 83Comment: Testing | 35 - 115 U/L | EXTERNAL | | | External | performed at [facility];[address] | | LAB | | | | [address];[place] | | | | | | [address] | | | | + + + + + + | AST | 13Comment: Testing | 10 - 45 U/L | EXTERNAL | | | | performed at [facility];[address] | | LAB | | | | [address];[place] | | | | | | [address] | | | | + + + + + + | ALT | 23Comment: Testing | 10 - 65 U/L | EXTERNAL | | | | performed at [facility];[address] | | LAB | | | | [address];[place] | | | | | | [address] | | | | + + + + + + | Estimated | >60Comment: GFR <60: | mL/min/1.73m2 | EXTERNAL | | | GFR | CHRONIC KIDNEY DISEASE, | | LAB | | | | IF FOUND OVER A 3 MONTH | | | | | | PERIOD.GFR <15: KIDNEY | | | | | | FAILURE.FOR | | | | | | AMERICANS, MULTIPLY THE | | | | | | CALCULATED GFR BY | | | | | | 1.210.Testing performed | | | | | | at [facility];[address];[place] [address] | | | | + + + + + + + + | Specimen | + + | Blood specimen | | (specimen) | + + + +---------+ + + | Performing | Address | City/State/Zipcode | Phone Number | | Organization | | | | + +---------+ + + | EXTERNAL LAB | | | | + +---------+ + + XR Chest 2 Vws (06/15/2016 6:48 AM PDT) + + | Specimen | + + | | + + + + + | Impressions | Performed At | + + + | 1. Heart size upper normal, without congestion or infiltrate. | | | | | + + + + + + | Narrative | Performed At | + + + | HISTORY: Coronary artery disease. Intended CABG. COMPARISON: | | | None. TECHNIQUE: PA and lateral films of the chest. FINDINGS: | | | Heart size is upper normal. No congestion or infiltrate. No | | | effusions. Slight degenerative changes both AC joints and scattered | | | throughout the thoracic spine. | | + + + + + | Procedure Note | + + | David Canales Conversion - 04/09/2019 7:51 PM PDT HISTORY:Coronary artery disease. | | Intended CABG. COMPARISON:None. TECHNIQUE:PA and lateral films of the chest. | | FINDINGS:Heart size is upper normal. No congestion or infiltrate. No effusions. Slight | | degenerative changes both AC joints and scattered throughout the thoracic spine. | | IMPRESSION: 1. Heart size upper normal, without congestion or infiltrate. | | | |TECHNIQUE: | |PA and lateral films of the chest. | | | |FINDINGS: | |Heart size is upper normal. No congestion or infiltrate. No effusions. Slight degenerative changes both AC joints and scattered throughout the thoracic spine. | | | |IMPRESSION: | |1. Heart size upper normal, without congestion or infiltrate. | | | | | + + POC Glucose (06/15/2016 5:33 AM PDT) + + + + + + | Component | Value | Ref Range | Performed | Pathologist | | | | | At | Signature | + + + + + + | Glucose, | 92Comment: Testing | 65 - 99 mg/dL | EXTERNAL | | | Fingerstick | performed at [facility];[address] | | LAB | | | | [address];[place], [place] | | | | | | [address] | | | | + + + + + + + + | Specimen | + + | | + + + +---------+ + + | Performing | Address | City/State/Zipcode | Phone Number | | Organization | | | | + +---------+ + + | EXTERNAL LAB | | | | + +---------+ + + VAS Lower Extremity Vein Mapping Bilat (06/15/2016 3:59 AM PDT) + + | Specimen | + + | | + + + + + | Impressions | Performed At | + + + | Bilateral lower extremity greater saphenous vein mapping. Greater | | | saphenous veins are patent bilaterally. [facility] | | | Electronically signed by Romeo Caceres MD on Jun 15 2016 4:20AM | | | Referring Provider Line: [phone] ID: [id number] | | + + + + + + | Narrative | Performed At | + + + | EXAM: BILATERAL LOWER EXTREMITY VEIN MAPPING EXAM DATE: | | | 06/15/2016 04:00 AM CLINICAL HISTORY: Coronary artery disease. | | | Scheduled for CABG. COMPARISON: None. TECHNIQUE: The bilateral | | | greater saphenous vein is were scanned with a high frequency linear | | | transducer. Greater saphenous vein diameters and branch points were | | | indicated and labeled on the skin with an indelible marker. The | | | patient was instructed to remark these areas as necessary prior to | | | surgery. The long chain beamer's worksheet was scanned into the electronic | | | medical record and faxed to the referring physician's office. | | | COMPARISON: None. FINDINGS: Greater saphenous vein diameters were | | | assessed from the upper thigh to the ankle: Right: Diameters range | | | from 13 mm proximal thigh to 1.3 mm mid calf. Left: Diameters range | | | from 5.6 mm proximal thigh , to 2.7 mm at the level of the knee, to | | | 3.2 mm-4.4 mm calf. | | + + + + + | Procedure Note | + + | David Canales Conversion - 04/09/2019 7:51 PM PDT EXAM:BILATERAL LOWER EXTREMITY VEIN | | MAPPING EXAM DATE: 06/15/2016 04:00 AM CLINICAL HISTORY: Coronary artery disease. | | Scheduled for CABG. COMPARISON: None. TECHNIQUE: The bilateral greater saphenous vein is | | were scanned with a high frequency linear transducer. Greater saphenous vein diameters | | and branch points were indicated and labeled on the skin with an indelible marker. The | | patient was instructed to remark these areas as necessary prior to surgery. The | | long chain beamer's worksheet was scanned into the electronic medical record and faxed to the | | referring physician's office. COMPARISON: None. FINDINGS: Greater saphenous vein | | diameters were assessed from the upper thigh to the ankle:Right: Diameters range from 13 | | mm proximal thigh to 1.3 mm mid calf.Left: Diameters range from 5.6 mm proximal thigh , | | to 2.7 mm at the level of the knee, to 3.2 mm-4.4 mm calf. IMPRESSION: Bilateral lower | | extremity greater saphenous vein mapping. Greater saphenous veins are patent | | bilaterally. [facility]IA Electronically signed by Romeo Caceres MD on Jun 15 2016 | | 4:20AM Referring Provider Line: [phone] ID: [id number] | |FINDINGS: Greater saphenous vein diameters were assessed from the upper thigh to the ankle: | |Right: Diameters range from 13 mm proximal thigh to 1.3 mm mid calf. | |Left: Diameters range from 5.6 mm proximal thigh , to 2.7 mm at the level of the knee, to 3 .2 mm-4.4 mm calf. | | | |IMPRESSION: | | | |Bilateral lower extremity greater saphenous vein mapping. Greater saphenous veins are paten t bilaterally. | | | | | | | |[facility] | | | | Electronically signed by Romeo Caceres MD on Jun 15 2016 4:20AM Referring Provider Sera e: [phone] ID: [id number] | + + VAS Carotid Duplex Bilateral (06/15/2016 3:51 AM PDT) + + | Specimen | + + | | + + + + + | Impressions | Performed At | + + + | 1. Limited examination, without evidence of hemodynamically | | | significant stenosis in either proximal internal carotid artery. | | | 2. Vertebral arteries are not visualized. Occlusion/stenosis not | | | excludable in this setting. CTA or MRA would provide additional | | | diagnostic information. Validated velocity measurements with | | | angiographic measurements and velocity criteria are extrapolated from | | | diameter data as defined by the Society of Radiologists in Ultrasound | | | Consensus Conference Radiology 2003; 229;340-346. [facility] | | | Electronically signed by Romeo Caceres MD on Jun 15 2016 1:06PM | | | Referring Provider Line: [phone] ID: [id number] | | + + + + + + | Narrative | Performed At | + + + | EXAM: CAROTID DOPPLER ULTRASOUND EXAM DATE: 06/15/2016 03:52 | | | AM. CLINICAL HISTORY: Cardiac surgery, history of vascular | | | disease. COMPARISON: None. TECHNIQUE: Real-time sonographic | | | vascular imaging was performed by the long chain beamer through the carotid | | | arterial system with a linear transducer utilizing color-flow, Doppler | | | flow and spectral analysis. Multiple account retention representative static images | | | were saved for review. FINDINGS: No hemodynamically significant | | | stenosis is identified in either common carotid artery or proximal | | | internal carotid arteries bilaterally, with normal velocity | | | measurements. No prominent plaque formation is demonstrated. The mid | | | and distal right internal carotid artery are not imaged nor could | | | the distal left internal carotid artery be evaluated. The | | | vertebral arteries were not visualized. Right: CCA Proximal: PSV | | | 36 cm/sec, EDV 9 cm/sec. CCA Distal: PSV 50 cm/sec, EDV 12 cm/sec. | | | ICA Proximal: PSV 31 cm/sec, EDV 5 cm/sec. ECA Proximal: PSV 48 | | | cm/sec, EDV 8 cm/sec. ICA/CCA Ratio: 0.6. CCA Plaque: | | | Calcification distal CCA. Vertebral Artery Flow: Not Visualized. | | | Left: CCA Proximal: PSV 50 cm/sec, EDV 15 cm/sec. CCA Distal: PSV 62 | | | cm/sec, EDV 14 cm/sec. ICA Proximal: PSV 62 cm/sec/ EDV 9 cm/sec. | | | ICA Mid: PSV 90 cm/sec, EDV 31 cm/sec. ECA Proximal: PSV 80 cm/sec, | | | EDV 5 cm/sec. ICA/CCA Ratio: 1.0. CCA Plaque: Intimal | | | thickening distal CCA. Vertebral Artery Flow: Not visualized. | | + + + + + | Procedure Note | + + | Parker, Rad Conversion - 04/09/2019 7:51 PM PDT EXAM:CAROTID DOPPLER ULTRASOUND EXAM | | DATE: 06/15/2016 03:52 AM. CLINICAL HISTORY: Cardiac surgery, history of vascular | | disease. COMPARISON: None. TECHNIQUE: Real-time sonographic vascular imaging was | | performed by the long chain beamer through the carotid arterial system with a linear | | transducer utilizing color-flow, Doppler flow and spectral analysis. Multiple | | account retention representative static images were saved for review. FINDINGS:No hemodynamically | | significant stenosis is identified in either common carotid artery or proximal internal | | carotid arteries bilaterally, with normal velocity measurements. No prominent plaque | | formation is demonstrated. The mid and distal right internal carotid artery are not | | imaged nor could the distal left internal carotid artery be evaluated. The vertebral | | arteries were not visualized. Right:CCA Proximal: PSV 36 cm/sec, EDV 9 cm/sec.CCA | | Distal: PSV 50 cm/sec, EDV 12 cm/sec.ICA Proximal: PSV 31 cm/sec, EDV 5 cm/sec.ECA | | Proximal: PSV 48 cm/sec, EDV 8 cm/sec. ICA/CCA Ratio: 0.6. CCA Plaque: Calcification | | distal CCA.Vertebral Artery Flow: Not Visualized. Left:CCA Proximal: PSV 50 cm/sec, EDV | | 15 cm/sec.CCA Distal: PSV 62 cm/sec, EDV 14 cm/sec.ICA Proximal: PSV 62 cm/sec/ EDV 9 | | cm/sec.ICA Mid: PSV 90 cm/sec, EDV 31 cm/sec.ECA Proximal: PSV 80 cm/sec, EDV 5 cm/sec. | | ICA/CCA Ratio: 1.0. CCA Plaque: Intimal thickening distal CCA.Vertebral Artery Flow: Not | | visualized. IMPRESSION: 1. Limited examination, without evidence of hemodynamically | | significant stenosis in either proximal internal carotid artery. 2. Vertebral arteries | | are not visualized. Occlusion/stenosis not excludable in this setting. CTA or MRA would | | provide additional diagnostic information. Validated velocity measurements with | | angiographic measurements and velocity criteria are extrapolated from diameter data as | | defined by the Society of Radiologists in Ultrasound Consensus Conference Radiology | | 2003; 229;340-346. RAD[facility] Electronically signed by Romeo Caceres MD on Jun 15 2016 | | 1:06PM Referring Provider Line: [phone] ID: [id number] | | | |ICA/CCA Ratio: 0.6. | | | |CCA Plaque: Calcification distal CCA. | |Vertebral Artery Flow: Not Visualized. | | | |Left: | |CCA Proximal: PSV 50 cm/sec, EDV 15 cm/sec. | |CCA Distal: PSV 62 cm/sec, EDV 14 cm/sec. | |ICA Proximal: PSV 62 cm/sec/ EDV 9 cm/sec. | |ICA Mid: PSV 90 cm/sec, EDV 31 cm/sec. | |ECA Proximal: PSV 80 cm/sec, EDV 5 cm/sec. | | | |ICA/CCA Ratio: 1.0. | | | |CCA Plaque: Intimal thickening distal CCA. | |Vertebral Artery Flow: Not visualized. | | | |IMPRESSION: | | | |1. Limited examination, without evidence of hemodynamically significant stenosis in either proximal internal carotid artery. | | | |2. Vertebral arteries are not visualized. Occlusion/stenosis not excludable in this setting . CTA or MRA would provide additional diagnostic information. | | | |Validated velocity measurements with angiographic measurements and velocity criteria are ex trapolated from diameter data as defined by the Society of Radiologists in Ultrasound Consen chula Conference Radiology 2003; 229;340-346. | | | |RADIA | | | | Electronically signed by Romeo Caceres MD on Jun 15 2016 1:06PM Referring Provider Sera e: [phone] ID: [id number] | + + POC Glucose (06/14/2016 9:19 PM PDT) + + + + + + | Component | Value | Ref Range | Performed | Pathologist | | | | | At | Signature | + + + + + + | Glucose, | 129 (H)Comment: Testing | 65 - 99 mg/dL | EXTERNAL | | | Fingerstick | performed at [facility];[address] | | LAB | | | | [address];[place], [place] | | | | | | [address] | | | | + + + + + + + + | Specimen | + + | | + + + +---------+ + + | Performing | Address | City/State/Zipcode | Phone Number | | Organization | | | | + +---------+ + + | EXTERNAL LAB | | | | + +---------+ + + MRSA NAAT (06/14/2016 8:36 PM PDT) + + | Specimen | + + | | + + + + + | Narrative | Performed At | + + + | SOURCE [facility]ARES(NOSE) | EXTERNAL LAB | | Testing performed at [facility];[address] [place] [address];[place] [address] MRSA PCR | | | NEGATIVE Testing performed at | | | [address];[place] [address] | | + + + + +---------+ + + | Performing | Address | City/State/Zipcode | Phone Number | | Organization | | | | + +---------+ + + | EXTERNAL LAB | | | | + +---------+ + + documented in this encounter Visit Diagnoses + + | Diagnosis | + + | 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
--- OUTSIDE RECORDS SUMMARY | ~2020-05-12 | XMS | Encounter Summary ---
Demographics + + + | Address | [address] | | | [place] [address] | + + + | Home Phone | | + + + | Preferred Language | Unknown | + + + | Marital Status | Legally | + + + | Islam Affiliation | 1041 | + + + | Race | or | + + + | Ethnic Group | Not or | + + + Author + + + | Author | [facility] | | | and [place] | + + + | Organization | [facility] | | | and [place] | + + + | Address | Unknown | + + + | Phone | Unavailable | + + + Support + + + + + | Name | Relationship | Address | Phone | + + + + + | Jenniffer Chew | ECON | [address] | | | | | [address] | | | | | [address] | | + + + + + Care Team Providers + +------+ + | Care Disease Education Specialist Name | Role | Phone | + +------+ + | Kaylan Montaño PA-C | PCP | | + +------+ + Encounter Details +--------+ + + + + | Date | Type | Department | Care Team | Description | +--------+ + + + + | 03/31/ | Orders Only | [facility] | Provider, | | | 2019 | | [facility] | [address] | | | | | [address] | [address] | | | | | [address] [place], [place] | [place] [address] | | | | | [address] | | | | | | [phone] | | | +--------+ + + + + Social History + +-------+ +--------+------+ | Tobacco Use | Types | Packs/Day | Years | Date | | | | | Used | | + +-------+ +--------+------+ | Former Smoker | | 1 | | | + +-------+ +--------+------+ + + | Comments: quit about 6-7 yrs ago | + + + + +---------+ + | Alcohol Use | Drinks/Week | oz/Week | Comments | + + +---------+ + | No | | | Alcoholic | | | | | Drinks/day: heavy | | | | | drinker in past hx. | + + +---------+ + + + + | Sex Assigned at | Date Recorded | | | | + + + | Not on file | | + + + documented as of this encounter Plan of Treatment Not on filedocumented as of this encounter Visit Diagnoses Not on filedocumented in this encounter"
--- OUTSIDE RECORDS SUMMARY | ~2020-05-12 | XMS | Encounter Summary ---
Demographics + + + | Address | [address] | | | [place] [address] | + + + | Home Phone | | + + + | Preferred Language | Unknown | + + + | Marital Status | Legally | + + + | Buddhist Affiliation | 1041 | + + + | Race | or | + + + | Ethnic Group | Not or | + + + Author + + + | Author | [facility] | | | and [place] | + + + | Organization | [facility] | | | and [place] | + + + | Address | Unknown | + + + | Phone | Unavailable | + + + Support + + + + + | Name | Relationship | Address | Phone | + + + + + | Jenniffer Chew | ECON | [address] | | | | | [address] | | | | | [address] | | + + + + + Care Team Providers + +------+ + | Care Airport Operations Specialist Name | Role | Phone | + +------+ + | Kaylan Montaño PA-C | PCP | | + +------+ + Encounter Details +--------+ + + + + | Date | Type | Department | Care Team | Description | +--------+ + + + + | 04/19/ | Orders Only | [facility] | Kaylan Montaño | | | 2015 | | [address] | | | | [address] | [place] [facility] | | | | | [place], [place] | [address] [place], [place] | | | | | [address] | [address] | | | | | [phone] | [phone] | | | | | | | | +--------+ + + + + Social History + +-------+ +--------+------+ | Tobacco Use | Types | Packs/Day | Years | Date | | | | | Used | | + +-------+ +--------+------+ | Never Assessed | | | | | + +-------+ +--------+------+ + + + | Sex Assigned at [...] + +--------+ + + + | ECHO INTERPRETATION | Routin | 04/19/2016 | | Results for this | | OF OUTSIDE FILMS | e | 11:35 AM | | procedure are in the | | | | PDT | | results section. | + +--------+ + + + documented in this encounter Results ECHO Interpretation of Outside Films (04/19/2016 11:35 AM PDT) + + | Specimen | + + | | + + + + + | Impressions | Performed At | + + + | 1. See Dictation. TDS, limited. Sinus. 2. Prob mild LVH, | | | systolic function grossly NML, Grade 1 diastolic abnormality, LVEF | | | >60%. Prob LAE, ALIYA, RVE. 3. Mitral and Tricuspid valves grossly | | | NML, trace MR, mild TR. Aortic and Pulmonic valves not seen well. | | | No . 4. No Pericardial effusion. 5. IVC grossly NML, inadequate TR | | | to estimate PAP. 6. Aortic root 42mm. | | + + + + + + | Narrative | Performed At | + + + | Patient Name: Quinton Renae Date of : 1955 | | | Performing Physician: Nito Swanson DO | | | | | | INDICATIONS Edema, HTN CONCLUSIONS 1. | | | See Dictation. TDS, limited. Sinus. 2. Prob mild LVH, systolic | | | function grossly NML, Grade 1 diastolic abnormality, LVEF >60%. Prob | | | LAE, ALIYA, RVE. 3. Mitral and Tricuspid valves grossly NML, trace MR, | | | mild TR. Aortic and Pulmonic valves not seen well. No . 4. No | | | Pericardial effusion. 5. IVC grossly NML, inadequate TR to estimate | | | PAP. 6. Aortic root 42mm. FINDINGS -------- ECG rhythm: Sinus | | | rhythm. Study: This was a technically difficult study with suboptimal | | | views. Left Ventricle: The diastolic filling pattern indicates | | | impaired relaxation consistent with mild dysfunction (Grade I). Right | | | Ventricle: The RV was not well visualized. Left Atrium: The left | | | atrium is mildly enlarged. Right Atrium: The right atrium is mildly | | | enlarged. Aortic Valve: The aortic valve was not well visualized. | | | Aortic Valve: There is no evidence of aortic regurgitation. Aortic | | | Valve: There is no evidence of aortic stenosis. Mitral Valve: The | | | mitral valve is normal. Mitral Valve: There is trace mitral | | | regurgitation. Tricuspid Valve: The tricuspid valve appears | | | structurally normal. Tricuspid Valve: Trace tricuspid regurgitation | | | present. Pulmonic Valve: The pulmonic valve was not well visualized. | | | Pericardium: There is no pericardial effusion. IVC/Hepatic Veins: | | | The IVC is normal size (1.5-2.5cm) and collapses >50% with sniff, | | | consistent with central venous pressures of 5-10mmHg. MEASUREMENTS | | | Lehr Operator: ANDRA Authenticated by: Nito Swanson | | | DO Report Date/Time: -- [id number] | | + + + + + | Procedure Note | + + | Parker, Rad Conversion - 04/16/2019 10:35 PM PDT Patient Name: Shala Renae | | : 1955 Performing Physician: Nito Swanson | | DO INDICATIONS E | | elizabeth, HTN CONCLUSIONS 1. See Dictation. TDS, limited. Sinus. 2. Prob mild | | LVH, systolic function grossly NML, Grade 1 diastolic abnormality, LVEF >60%. Prob LAE, | | ALIYA, RVE. 3. Mitral and Tricuspid valves grossly NML, trace MR, mild TR. Aortic and | | Pulmonic valves not seen well. No . 4. No Pericardial effusion. 5. IVC grossly NML, | | inadequate TR to estimate PAP. 6. Aortic root 42mm. FINDINGS--------ECG rhythm: Sinus | | rhythm.Study: This was a technically difficult study with suboptimal views.Left | | Ventricle: The diastolic filling pattern indicates impaired relaxation consistent with | | mild dysfunction (Grade I).Right Ventricle: The RV was not well visualized.Left Atrium: | | The left atrium is mildly enlarged.Right Atrium: The right atrium is mildly | | enlarged.Aortic Valve: The aortic valve was not well visualized.Aortic Valve: There is | | no evidence of aortic regurgitation.Aortic Valve: There is no evidence of aortic | | stenosis.Mitral Valve: The mitral valve is normal.Mitral Valve: There is trace mitral | | regurgitation.Tricuspid Valve: The tricuspid valve appears structurally normal.Tricuspid | | Valve: Trace tricuspid regurgitation present.Pulmonic Valve: The pulmonic valve was not | | well visualized.Pericardium: There is no pericardial effusion.IVC/Hepatic Veins: The | | IVC is normal size (1.5-2.5cm) and collapses >50% with sniff, consistent with central | | venous pressures of 5-10mmHg. MEASUREMENTS Lehr Operator: DHAuthenticated by: | | Nito Quinteros Date/Time: -- [id number] IMPRESSION: 1. See | | Dictation. TDS, limited. Sinus. 2. Prob mild LVH, systolic function grossly NML, Grade | | 1 diastolic abnormality, LVEF >60%. Prob LAE, ALIYA, RVE. 3. Mitral and Tricuspid valves | | grossly NML, trace MR, mild TR. Aortic and Pulmonic valves not seen well. No . 4. | | No Pericardial effusion. 5. IVC grossly NML, inadequate TR to estimate PAP. 6. Aortic | | root 42mm. | |Aortic Valve: The aortic valve was not well visualized. | |Aortic Valve: There is no evidence of aortic regurgitation. | |Aortic Valve: There is no evidence of aortic stenosis. | |Mitral Valve: The mitral valve is normal. | |Mitral Valve: There is trace mitral regurgitation. | |Tricuspid Valve: The tricuspid valve appears structurally normal. | |Tricuspid Valve: Trace tricuspid regurgitation present. | |Pulmonic Valve: The pulmonic valve was not well visualized. | |Pericardium: There is no pericardial effusion. | |IVC/Hepatic Veins: The IVC is normal size (1.5-2.5cm) and collapses >50% with sniff, consis tent with central venous pressures of 5-10mmHg. | | | |MEASUREMENTS | | | | | |Lehr Operator: ANDRA | |Authenticated by: Nito Swanson DO | |Report Date/Time: -- [id number] | | | |IMPRESSION: | |1. See Dictation. TDS, limited. Sinus. 2. Prob mild LVH, systolic function grossly NML, G rade 1 diastolic abnormality, LVEF >60%. Prob LAE, ALIYA, RVE. 3. Mitral and Tricuspid valves grossly NML, trace MR, mild TR. | |Aortic and Pulmonic valves not seen | |well. No . 4. No Pericardial effusion. 5. IVC grossly NML, inadequate TR to estimate PAP . 6. Aortic root 42mm. | + + documented in this encounter Visit Diagnoses Not on filedocumented in this encounter"
--- OUTSIDE RECORDS SUMMARY | ~2020-05-12 | XMS | Encounter Summary ---
Demographics + + + | Address | [address] | | | [place] [address] | + + + | Home Phone | | + + + | Preferred Language | Unknown | + + + | Marital Status | Legally | + + + | Advent Affiliation | 1041 | + + + | Race | or | + + + | Ethnic Group | Not or | + + + Author + + + | Author | [facility] | | | and [place] | + + + | Organization | [facility] | | | and [place] | + + + | Address | Unknown | + + + | Phone | Unavailable | + + + Support + + + + + | Name | Relationship | Address | Phone | + + + + + | Jenniffer Chew | ECON | [address] | | | | | [address] | | | | | [address] | | + + + + + Care Team Providers + +------+ + | Care Claims Administrator Name | Role | Phone | + +------+ + PCP | Unavailable | + +------+ + Encounter Details +--------+ + + + + | Date | Type | Department | Care Team | Description | +--------+ + + + + | 01/08/ | Hospital | [facility] | | | | 2005 | Encounter | [facility] [address] | | | | | | [address] | | | | | | [place] [address] | | | | | | [phone] | | | +--------+ + + + [...]
--- OUTSIDE RECORDS SUMMARY | ~2020-05-12 | XMS | Encounter Summary ---
Demographics + + + | Address | [address] | | | [place] [address] | + + + | Home Phone | | + + + | Preferred Language | Unknown | + + + | Marital Status | Legally | + + + | Roman Catholic Affiliation | 1041 | + + + | Race | or | + + + | Ethnic Group | Not or | + + + Author + + + | Author | [facility] | | | and [place] | + + + | Organization | [facility] | | | and [place] | + + + | Address | Unknown | + + + | Phone | Unavailable | + + + Support + + + + + | Name | Relationship | Address | Phone | + + + + + | Jenniffer Chew | ECON | [address] | | | | | [address] [place] | | | | | [address] | | + + + + + Care Team Providers + +------+ + | Care Pharmaceutical Plant Operator Name | Role | Phone | + +------+ + | Kaylan Montaño PA-C | PCP | | + +------+ + Encounter Details +--------+ + + + + | Date | Type | Department | Care Team | Description | +--------+ + + + + | 06/15/ | Hospital | [facility] | Conversion | | | 2016 | Encounter | [facility] | Transaction, | | | | | ECHOCARDIOGRAPHY | Provider Unknown | | | | | [address] [facility] | | | | | | [place], [place] | (Fax) | | | | | [address] | | | | | | [phone] | | | +--------+ + + + [...] + + documented as of this encounter Medications at Time of Discharge + + + +---------+--------+ + | Medication | Sig | Dispensed | Refills | Start | End Date | | | | | | Date | | + + + +---------+--------+ + | aspirin 81 mg EC | Take 81 mg by mouth | | 0 | | | | tablet | Daily. | | | | | + + + +---------+--------+ + | cholecalciferol | Take by mouth | | 0 | | | | (VITAMIN D-3) 5000 | Daily. | | | | | | units TABS | | | | | | + + + +---------+--------+ + | cyanocobalamin | Take 500 mcg by | | 0 | | | | (VITAMIN B-12) 500 | mouth Daily. | | | | | | mcg tablet | | | | | | + + + +---------+--------+ + | hydrophilic | Apply 120 g | | 0 | | | | ointment | topically Daily. | | | | | + + + +---------+--------+ + | insulin aspart | Inject 22 Units | | 0 | | | | (NOVOLOG PENFILL) | under the skin 3 | | | | | | 100 units/mL | times daily (before | | | | | | injection cartridge | meals). | | | | | + + + +---------+--------+ + | insulin glargine | Inject 50 Units | | 0 | | | | (LANTUS SOLOSTAR) | under the skin 2 | | | | | | 100 units/mL | times daily. | | | | | | injection (pen) | | | | | | + + + +---------+--------+ + | lisinopril | Take 40 mg by mouth | | 0 | | | | (PRINIVIL,ZESTRIL) | Daily. | | | | | | 40 MG tablet | | | | | | + + + +---------+--------+ + | metFORMIN | Take 1,000 mg by | | 0 | | | | (GLUCOPHAGE) 1000 MG | mouth 2 times daily | | | | | | tablet | (with breakfast & | | | | | | | dinner). | | | | | + + + +---------+--------+ + | rosuvastatin | Take 20 mg by mouth | | 0 | | | | (CRESTOR) 20 mg | nightly. | | | | | | tablet | | | | | | + + + +---------+--------+ + documented as of this encounter Plan of Treatment Not on filedocumented as of this encounter Visit Diagnoses Not on filedocumented in this encounter"
--- OUTSIDE RECORDS SUMMARY | ~2020-05-12 | XMS | Encounter Summary ---
Demographics + + + | Address | [address] | | | [place] [address] | + + + | Home Phone | | + + + | Preferred Language | Unknown | + + + | Marital Status | Legally | + + + | Tenriism Affiliation | [id number] | + + + | Race | or | + + + | Ethnic Group | Not or | + + + Author + + + | Author | [facility] | | | and [place] | + + + | Organization | [facility] | | | and [place] | + + + | Address | Unknown | + + + | Phone | Unavailable | + + + Support + + + + + | Name | Relationship | Address | Phone | + + + + + | Jenniffer Chew | ECON | [address] | | | | | [address] [place] | | | | | [address] | | + + + + + Care Team Providers + +------+ + | Care Linking Machine Operator Name | Role | Phone | + +------+ + | Kaylan Montaño PA-C | PCP | | + +------+ + Reason for Visit Auth/Cert +--------+--------+ + + + + | Status | Reason | Specialty | Diagnoses / | Referred By | Referred To | | | | | Procedures | Contact | Contact | +--------+--------+ + + + + | | | | Diagnoses | | | | | | | Chest pain | | | | | | | Chest pain | | | | | | | [R07.9] | | | | | | | Unstable | | | | | | | angina | | | | | | | Procedures | | | | | | | CV LHC | | | +--------+--------+ + + + + Encounter Details +--------+ + + + + | Date | Type | Department | Care Team | Description | +--------+ + + + + | 06/13/ | Hospital | [facility] | Jasen Love, | Morbid obesity with | | 2016 - | Encounter | MED CTR ICU [address] | MD [address] | BMI of 40.0-44.9, | | | | [place], | [place], [place] | adult ([facility]) (Primary | | 06/14/ | | [place] [address] | [phone] | Dx); Unstable | | 2015 | | [phone] | [phone] | angina (HCC); | | | | | | Coronary artery | | | | | | disease involving | | | | | | tunica-biloxi coronary | | | | | | artery of tunica-biloxi | | | | | | heart with unstable | | | | | | angina pectoris | | | | | | ([facility]); | | | | | | Hypertriglyceridemia | +--------+ + + + + Social [...] + + + | Blood Pressure | 101/66 | 06/14/2016 6:15 PM | | | | | PDT | | + + + + + | Pulse | 67 | 06/14/2016 6:15 PM | | | | | PDT | | + + + + + | Temperature | 36.5 C (97.7 F) | 06/14/2016 3:25 PM | | | | | PDT | | + + + + + | Respiratory Rate | 18 | 06/14/2016 6:15 PM | | | | | PDT | | + + + + + | Oxygen Saturation | 96% | 06/14/2016 6:15 PM | | | | | PDT | | + + + + + | Inhaled Oxygen | - | - | | | Concentration | | | | + + + + + | Weight | 131 kg (288 lb 12.8 | 06/14/2016 5:08 AM | | | | oz) | PDT | | + + + + + | Height | 175.3 cm (5' 9") | 06/13/2016 10:12 PM | | | | | PDT | | + + + + + | Body Mass Index | 42.65 | 06/13/2016 10:12 PM | | | | | PDT | | + + + + + documented in this encounter Discharge Summaries Jenifer Kumar MD - 06/14/2016 3:27 PM PDTFormatting of this note might be different fr om the original. Physician Discharge Summary Patient ID: Quinton Renae [id number] 61 y.o. 1955 Admit date: 06/13/2016 Discharge date and time: 06/14/2016 Admitting Physician: Jasen Love MD Discharge Physician: Jenifer Kumar MD Admission Diagnoses: Chest pain [R07.9] Discharge Diagnoses: Principal Problem: Coronary artery disease involving tunica-biloxi coronary artery of tunica-biloxi heart with unstable an neto pectoris Active Problems: Diabetes mellitus Hyperlipidemia Obstructive sleep apnea Essential hypertension Unstable angina Morbid obesity with BMI of 40.0-44.9, adult Hypertriglyceridemia Admission Condition: fair Discharged Condition: good Indication for Admission: Chest pain, admitted on transfer from [place] for unstable an [facility] Course: This is a 61 y.o. male with a history of insulin-dependent diabetes, hyper tension, hyperlipidemia, morbid obesity, smoking history, who presented with complaint of ex ertional chest pain. He has no known diagnosis of CAD, and has not had a stress test that he knows of. He works at the [employer], but has noticed worsening exercise tolerance this year to the point that he can only walk about a block before becoming very tired. The last three days, he has been wa lking a dog, and if he walks more than half a block, he develops substernal sharp chest pain up to 5/10, relieved with rest. Accompanied by weakness and shortness of breath at times. No diaphoresis, positive for history of radiation to posterior left shoulder. He has had n o resting chest pain. No fevers, cough, or sputum production. He snores loudly at night, and can't breathe if he is flat on his back, so usually turns on his side or sits up while sleeping. He has never had a sleep study or used CPAP. His bloo d sugars have been poorly controlled up to 300 frequently. He quit smoking about 5 years ag o, but smoked about 30 pack years. He presented to [facility], and was found to have RBBB on EKG without obvious a cute ischemia, but Troponin T was slightly elevated at 0.012 (normal 0.01 or less), and pace sferred for further cardiac workup. Denies current chest pain, feels better currently. He underwent right and left heart catheterization 06/14/[address] Todd Arguelles. He is found to have multi vessel CAD and will transfer to [facility] for further care. Will recommend overn ight oximetry and outpatient sleep study when medically stable along with risk reduction. Consults: cardiology Significant Diagnostic Studies: PACS Images Show images for CV Cardiac Procedure Visit Information Location Encounter # 06/13/2016 21:38 [place] [facility] [id number] Procedures CV LHC CV RHC Link to Procedure Log Procedure Log 06/14/2016 14:30 - Nursing Informatics Clinical Analyst [place] Addenda RIGHT AND LEFT CARDIAC CATHETERIZATION With ANGIOGRAPHY PATIENT NAME/: Quinton Downey Renae, (1955) DATE OF PROCEDURE: 06/14/2016 SQL SERVER DBA: Todd Arguelles MD PROCEDURES PERFORMED: Coronary Angiography Right Heart Catheterization Left Ventriculography INDICATIONS: Unstable angina and suspected pulmonary hypertension Brief Description of Procedure Following informed consent both groins was prepped and draped. A right femoral approach wa s used. Using ultrasound and fluoroscopy vascular access was obtained in the femoral artery and vein with considerable difficulty. A 6 F sheath was placed in the artery and a 7 F in the vein. Right heart pressure and flow data were recorded using a balloon tipped thermodil ution catheter. Coronary angiography was subsequently performed using listed diagnostic cor onary catheters. Hemostasis was obtained at the arterial site with a closure device. Manua l compression was used for venous hemostasis. The procedure had no immediate complications. FINDINGS: Hemodynamics: RA - 10 mm Hg RV - 46/10 mm Hg PA - 48/15 mm Hg with a mean of 29 mmHg PCW - 23 mm Hg Ao - 116/72 mm Hg with a mean of 90 mm Hg LV - Not done Using the Hayes method, cardiac output is 6.8 L/min Using thermodilution, cardiac output is 7.3 L/min (See the separate hemodynamic report for full details. Left main artery: Separate ostia are present for the LAD, diminutive ramus intermedius and circumflex coronary artery. No left main artery is present Left anterior descending artery: The left anterior descending artery is a type 2 vessel. It provides a fairly large high diagonal branch, a large bifurcating first septal legal records manager , 1 second diagonal branch then terminates at the apex. The 75% stenosis is found in the pr oximal segment of the LAD. A 75% stenosis is seen in the high diagonal. Left circumflex artery: The left circumflex artery is a medium caliber vessel that is non dominant. The vessel consists of 4 obtuse marginal branches the first of which is fairly sm all. The second diagonal, largest of all, has a long 50% stenosis in its proximal segment. Proximal circumflex is diffusely diseased without an identifiable normal segment. Degree o f stenosis is at least 30%. Right coronary artery: The right coronary artery is a medium caliber vessel that is domina nt. It gives rise to 3 right ventricular branches, a bifurcating posterior descending and a bout 4 posterolateral branches one of which is fairly large. The proximal right coronary ar zackary contains a 75% focal stenosis. The mid right coronary is severely diffusely diseased t hroughout its entire course and terminates in a 75% stenosis. The distal right coronary seg ments have luminal irregularities without significant obstruction. CONCLUSIONS: 1. Mild pulmonary hypertension 2. Severe three vessel coronary artery disease characterized by a 75% stenosis in the prox imal LAD, a 75% stenosis in a high diagonal branch, tandem 75% stenoses in the proximal and mid right coronary artery and a 50% stenosis in the second obtuse marginal branch 3. 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 Below is the cardiac cath report as generated by the markedup PRIMARY CARE PROVIDER: Kaylan Montaño PA-C Signed by Todd Arguelles MD on 06/14/2016 14:30 Narrative Cardiac Diagnostic Report Demographics Patient Name ADA Downey Gender Male Patient Number [id number] Race Visit Number [id number] Height 69.02 inches Accession Number [id number] Weight 288.81 pounds Date of 1955 BSA 2.42 m^2 Age 61 year(s) BMI 42.63 kg/m^2 Referring Melony ARGUELLES, Date of Study 06/14/2016 Physician Diagnostic Melony ARGUELLES, Interventional Meolny ARGUELLES, Physician Physician Procedure Procedure Type Diagnostic procedure: LHC (includes coronaries and LV gram if done), Right Heart Catheterization , CV CARDIAC CATH Risk Factors The patient risk factors include:obesity, arterial hypertension, diabetes, Last creatinine 0.9 mg/dl, Creatinine clearance 157.69 ml/min and dyslipidemia. Angiographic findings Cardiac Arteries and Lesion Findings LAD: Multiple stenosis.There is a 75% stenosis noted in the proximal portion of the vessel. There is a 75% stenosis noted in the proximal segment of the first diagonal. LCx: Multiple stenosis.There is moderate diffuse disease noted. There is a 50% stenosis noted in the proximal portion of the first major obtuse marginal branch. RCA: Multiple stenosis.There is a 75% stenosis noted in the proximal portion of the vessel. There is a 75% stenosis noted in the mid portion of the vessel. Ramus: Abnormal.Small caliber vessel. Conclusions Signatures Admission Data Admission Date: 06/13/2016 Admission Status: Inpatient. Procedure Data Procedure Date Date: 06/14/2016Start: 08:52 The procedure was explained in detail to the patient. Risks, complications and alternative treatments were reviewed. Written consent was obtained. Diagnostic Cath Status: Urgent Indications: Unstable angina. Fluoroscopy Time: Total: 10:12 minutes. Contrast Material - [id number] ml Entry Locations - Percutaneous access was performed through the Right Femoral artery. A 6 Fr sheath was inserted. Hemostasis was successfully obtained using Perclose ProGlide (Quinones). - Percutaneous access was performed through the Right Femoral vein. A 7 Fr sheath was inserted. Hemostasis was successfully obtained using Manual Compression. Diagnostic Catheters - SWAN-GRAEME was used for Right heart cath. - 6F JL4 was used for Left coronary angiography. - 6Fr JR4 was used for Right coronary angiography. Hemodynamics Condition: Rest Actual: Estimated: 284.81Heart rate: 71 bpm Oxygen saturation - Location: AO, Saturation %: 97.9, Hgb: 12.8, - Location: PA, Saturation %: 73.2, Hgb: 12.8, Pressure - RA - 14/11 (10) - RV - 41/12 ,15 - PA - 39/22 (29) - PCW - 23/21 (22) - AO - 119/63 (89) Cardiac output - Time: 06/14/2016 10:28 Cardiac Output (l/min): 8.5 Use: True - Time: 06/14/2016 10:28 Cardiac Output (l/min): 5.98 Use: False - Time: 06/14/2016 10:29 Cardiac Output (l/min): 12.41 Use: False - Time: 06/14/2016 10:29 Cardiac Output (l/min): 7.6 Use: True - Time: 06/14/2016 10:30 Cardiac Output (l/min): 6.45 Use: True - Time: 06/14/2016 10:30 Cardiac Output (l/min): 7.07 Use: True Cardiac output - Method: Hayes, CO (l/min): 6.63, CI (l/min/m2): 2.7, SV (ml): 92.78 - Method: Thermal, CO (l/min): 7.405, CI (l/min/m2): 3.1, SV (ml): 100.75 Shunts Oxygen values O2 dasbfciqsoa081.81 Flows (l/min)Qs6.63 Vascular resistance - CO method: Qp or Qs, TSVR: 1070.51, SVR: 949.1, PVR/SVR: - CO method: Thermal, TSVR: 958.47, SVR: 849.76, TPSVR: 317.02, PVR: 79.34, TPVR/TSVR: 0.33, PVR/SVR: 0.09 - CO method: Hayes, TSVR: 1070.51, SVR: 949.1, TPSVR: 354.07, PVR: 88.61, TPVR/TSVR: 0.33, PVR/SVR: 0.09 Results Scan on 06/14/2016 11:06 by ONBASE SCAN WAMT : CV CARDIAC CATHScan on 06/14/2016 11:06 by ONBASE SCAN WAMT : CV CARDIAC CATH Scan on 06/14/2016 14:18 by ONBASE SCAN WAMT : CV CARDIAC PROCEDUREScan on 06/14/2016 14: 18 by ONBASE SCAN WAMT : CV CARDIAC PROCEDURE Lab and Collection CV Cardiac Procedure on 06/14/2016 Result History CV Cardiac Procedure on 06/14/2016 CV Cardiac Procedure 06/14/16 Quinton Renae 61 year old Reading Physician Todd Arguelles MD Ordering Physician Todd Arguelles MD Result Information Status Provider Status Edited Result - FINAL (06/14/2016 0000) Open Surgery Report Signed at 1418 PDT Addended by Todd Arguelles MD on 06/14/16 at 1430 PDT Authorizing Provider Audit Hampton Date/Time Authorizing Provider Changed by 06/14/2016 7:59 MD Agnes Alonso Tech CV Cardiac Procedure (Order [id number]) Cardiac Cath Order: [id number] Released By: Jesse Merino Authorizing: Todd Arguelles MD Date: 06/14/2016 Department: [facility] ICU Procedure Abnormality Status CV Cardiac Procedure Visit Information Location Encounter # 06/13/2016 21:38 [facility] [id number] Order Information Order Date/Time Release Date/Time Start Date/Time End Date/Time 06/14/16 07:59 06/14/16 07:59 06/14/16 08:00 06/14/16 08:00 Order Details Frequency Duration Priority Order Class ONE TIME 1 occurrence Routine Hospital Performed Collection Information Collected: 06/14/2016 0852 Order Report View Order Information Authorizing Provider Audit Hampton Date/Time Authorizing Provider Changed by 06/14/2016 7:59 MD Agnes Alonso Tech Lab Requisition CV Cardiac Procedure (Order #[id number]) on 06/14/16 Disposition: [facility] for CT surgery evaluation Patient Instructions: Discharge Readmit Medications Start Ordered Status Ordering Provider Signed and Held Signed and Held dextrose 50% injection 12.5 g PRN JENIFER KUMAR Signed and Held Signed and Held insulin lispro (humaLOG KWIKPEN) 100 units/mL injection ( pen) 0-18 Units 4 TIMES DAILY WITH MEALS & NIGHTLY JENIFER KUMAR Signed and Held Signed and Held nitroglycerin (NITROSTAT) SL tablet 0.4 mg EVERY 5 MIN PRN JENIFER KUMAR Signed and Held Signed and Held metoprolol tartrate (LOPRESSOR) tablet 25 mg 2 TIMES DA BRYN JENIFER KUMAR Signed and Held Signed and Held aspirin tablet 325 mg DAILY JENIFER KUMAR Signed and Held Signed and Held cyanocobalamin (VITAMIN B-12) tablet 500 mcg DAILY JENIFER KUMAR Signed and Held Signed and Held insulin lispro (humaLOG KWIKPEN) 100 units/mL injection ( pen) 10 Units 3 TIMES DAILY WITH MEALS JENIFER KUMAR Signed and Held Signed and Held insulin glargine (LANTUS SOLOSTAR) 100 units/mL injection (pen) 50 Units 2 TIMES DAILY JENIFER KUMAR Signed and Held Signed and Held lisinopril (PRINIVIL,ZESTRIL) tablet 40 mg DAILY JENIFER KUMAR Signed and Held Signed and Held atorvaSTATin (LIPITOR) tablet 80 mg NIGHTLY JENIFER KUMAR Signed and Held Signed and Held acetaminophen (TYLENOL) tablet 650 mg EVERY 4 HOURS PRN JENIFER KUMAR Signed and Held Signed and Held zolpidem (AMBIEN) tablet 5 mg NIGHTLY PRN JENIFER KUMAR Signed and Held Signed and Held docusate sodium (COLACE) capsule 100 mg 2 TIMES DAILY JENIFER KUMAR Signed and Held Signed and Held senna (SENOKOT) tablet 8.6 mg 2 TIMES DAILY PRN JENIFER KUMAR Signed and Held Signed and Held ondansetron (ZOFRAN) injection 4 mg EVERY 6 HOURS PRN JENIFER KUMAR Signed and Held Signed and Held aluminum & magnesium hydroxide-simethicone (MAALOX PLUS R EGULAR STRENGTH) 200-200-20 mg/5 mL suspension 30 mL EVERY 4 HOURS PRN JENIFER KUMAR Signed and Held Signed and Held oxyCODONE (ROXICODONE) tablet 5-10 mg EVERY 4 HOURS PRN JENIFER KUMAR Signed and Held Signed and Held lidocaine 1%-EPINEPHrine 1:100,000 injection 5 mL ONCE PRN JENIFER KUMAR Signed: Jenifer Kumar MD 06/14/2016 15:27 documented in this e ncounter Medications at Time of Discharge + + [...] +---------+--------+ + documented as of this encounter Progress Notes Todd Arguelles MD - 06/14/2016 2:39 PM PDTCardiac cath revealed: 1. mild pulmonary hypertension, mean PA pressure of 28. 2. 3 vessel CAD: 75% proximal LAD, 75% diagonal. 50% OMB narrowing. Two 75% narrowings in the right coronary. Discussed with Kendall Chaney, CV surgeon at [facility]. He has agreed to accept. We decided th at we would keep Mr. Renae here tonight and ambulate him. If he has no angina and seems cli nically stable, we would discharge and have him seen by Dr. Chaney Saturday in his outpatient clinic. If not stable, will transfer tomorrow. Jenifer Lema MD - 06/14/2016 8:15 AM PDT [facility] HOSPITALIST PROGRESS NOTE PATIENT NAME: Quinton Renae AGE: 61 y.o. DATE OF SERVICE: 06/14/2016 SUBJECTIVE: No chest pain, no shortness of breath. Symptoms exertional. Patient with burnin g pain radiating to left shoulder with malaise and palpitations for the past three or four d ays when walking son's dog. Sent from [facility]. His father passed at age 60 with probable sudden cardiac when went out to chop some wood. Multiple risk factors+. Per record for cath today. OBJECTIVE: VITAL SIGNS FOR LAST 24 HOURS: Temp: [36.2 C (97.2 F)-36.8 C (98.2 F)] 36.3 C (9 7.3 F) Pulse: [67-90] 75 Resp: [14-23] 16 BP: (118-153)/(60-94) 131/62 mmHg INTAKE/OUTPUT THIS SHIFT: Intake/Output Summary (Last 24 hours) at 06/14/16 0815 Last data filed at 06/14/16 0608 Gross per 24 hour Intake 220 ml Output 900 ml Net -680 ml EXAM: Alert, pleasant NAD Lungs: clear Heart: RRR, no murmur Abd: obese MEDICATIONS REVIEWED: aspirin 325 mg Oral Daily atorvaSTATin 80 mg Oral Nightly cyanocobalamin 500 mcg Oral Daily docusate sodium 100 mg Oral BID insulin glargine 50 Units Subcutaneous BID insulin lispro 0-18 Units Subcutaneous 4x Daily WC and HS insulin lispro 10 Units Subcutaneous TID WC lisinopril 40 mg Oral Daily metoprolol tartrate 25 mg Oral BID sodium chloride 0.9% 1 mL/kg Intravenous Multilith Operator LABORATORY REVIEWED INCLUDING: Lab Results Component Value Date WBC 8.7 06/14/2016 HGB 13.5 06/14/2016 HCT 40.1 06/14/2016 Lab Results Component Value Date CREA 0.87 06/14/2016 BUN 22* 06/14/2016 NA 134* 06/14/2016 K 4.8 06/14/2016 CL 99 06/14/2016 CO2 30 06/14/2016 ASSESSMENT AND PLAN: Active Hospital Problems Diagnosis Unstable angina Diabetes mellitus Hyperlipidemia Obstructive sleep apnea Essential hypertension Morbid obesity with BMI of 40.0-44.9, adult Resolved Hospital Problems Diagnosis No resolved problems to display. 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 Dr. Arguelles is consulting. No new issues this AM. Electronically signed by: Jenifer Kumar MD, DATE/TIME: 06/14/2016 8:15 [facility] HOSPITALIST TEAM Portions of this chart may have been created using [employer] voice recognition software. Occas ional wrong-word or "sound alike" substitutions may have occurred due to the inherent limita tions of voice recognition software. Please read chart carefully and recognize using context where these substitutions have occurred.Electronically signed by Jenifer Kumar MD at 8:18 AM PDTdocumented in this encounter H&P Notes Jasen Love MD - 06/13/2016 10:24 PM PDTFormatting of this note might be different f rom the original. [facility] HISTORY AND PHYSICAL Pt. Name/Age/: Quinton Renae 61 y.o. 1955 Date of admission: 06/13/2016 Admitting Physician: Jasen Love MD Primary Care Provider: Kaylan Montaño PA-C CHIEF COMPLAINT: Chest pain HISTORY OF PRESENT ILLNESS: This is a 61 y.o. male with a history of insulin-dependent diabetes, hypertension, hyperlip idemia, morbid obesity, smoking history, who presents with chest pain. He has no known diagnosis of CAD, and has not had a stress test that he knows of. He works at the [employer], but has noticed worsening exercise tolerance this year to the point that he can only walk about a block before becoming very tired. The last three days, he has been wa lking a dog, and if he walks more than half a block, he develops substernal sharp chest pain up to 5/10, relieved with rest. Accompanied by weakness and shortness of breath at times. No radiation or diaphoresis. He has had no resting chest pain. No fevers, cough, or sputu m production. He snores loudly at night, and can't breathe if he is flat on his back, so usually turns on his side or sits up while sleeping. He has never had a sleep study or used CPAP. His bloo d sugars have been poorly controlled up to 300 frequently. He quit smoking about 5 years ag o, but smoked about 30 pack years. He presented to [facility], and was found to have RBBB on EKG without obvious a cute ischemia, but Troponin T was slightly elevated at 0.012 (normal 0.01 or less), and pace sferred for further cardiac workup. Denies current chest pain, feels better currently. PAST MEDICAL and SURGICAL HISTORY: Past Medical History Diagnosis Date Diabetes mellitus (HCC) Hypertension Neuropathy (HCC) Bulging lumbar disc Hyperlipidemia Obstructive sleep apnea Morbid obesity with BMI of 40.0-44.9, adult (HCC) Past Surgical History Procedure Laterality Date Scrotal surgery Vasectomy Abdominal hernia repair Puncture aspiration abscess Infected diabetic ulcer on left foot 2015 FAMILY HISTORY: Father of [place] in his 60's. SOCIAL HISTORY: reports that he has quit smoking. He does not have any smokeless tobacco history on file. He reports that he does not drink alcohol or use illicit drugs. 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 He lives with his and daughter in [place]. He is retire d from the [employer]. REVIEW OF SYSTEMS: Significant for stable weight and appetite. No GI symptoms. Chronic hesitation with urina tion. He had cellulitis/abscess of left foot and leg, and there was concern that he would l ose his left foot earlier this year, but this has healed. Chronic edema of both legs. Lost most of his teeth during his [employer] service. A complete 14-system review was otherwise negat adrian except as noted in the HPI. HOME MEDICATIONS: Current Discharge Medication List CONTINUE these medications which have NOT CHANGED Details aspirin 81 mg EC tablet Take 81 mg by mouth Daily. cholecalciferol (VITAMIN D-3) 5000 units TABS Take by mouth Daily. cyanocobalamin (VITAMIN B-12) 500 mcg tablet Take 500 mcg by mouth Daily. hydrophilic ointment Apply 120 g topically Daily. insulin aspart (NOVOLOG PENFILL) 100 units/mL injection cartridge Inject 22 Units under the skin 3 times daily (before meals). insulin glargine (LANTUS SOLOSTAR) 100 units/mL injection (pen) Inject 50 Units under the s kin 2 times daily. lisinopril (PRINIVIL,ZESTRIL) 40 MG tablet Take 40 mg by mouth Daily. metFORMIN (GLUCOPHAGE) 1000 MG tablet Take 1,000 mg by mouth 2 times daily (with breakfast & dinner). rosuvastatin (CRESTOR) 20 mg tablet Take 20 mg by mouth nightly. ALLERGIES: No Known Allergies VITAL SIGNS: Temp: 36.8 C (98.2 F), Pulse: 72, Resp: 14, BP: 134/71 mmHg, SpO2 98 % on nasal cannula at flow rate 2L/min Temp Min: 36.5 C (97.7 F) Max: 36.8 C (98.2 F) Weight: 132.9 kg (292 lb 15.9 oz) PHYSICAL EXAMINATION: Gen Maycol - alert, cooperative and no distress, pleasant, obese Head - Normocephalic, without obvious abnormality Eyes - conjunctiva/corneas clear ENT - mucous membranes moist, edentulous Neck - supple Lungs - clear to auscultation, no wheezes or rales and unlabored breathing Heart - normal rate, regular rhythm, normal S1, S2, no murmurs, rubs, clicks or gallops Abdomen - soft, protuberant, normal bowel sounds, nontender, without guarding and withou t rebound Extremities - chronic venous stasis changes with at least 3 cm woody edema bilaterally, healed ulcer on left posterior foot, no clubbing or cyanosis Skin - no rashes Neurologic - Alert and oriented x 3. Excellent historian. DIAGNOSTIC STUDIES: Available data and images were reviewed personally. Significant results and findings are a ddressed here or in the Assessment and Plan. Recent Results (from the past 24 hour(s)) POC Glucose Result Value Ref Range Glucose, POC 292 (H) 70-150 mg/dL ECG 12 lead Result Value Ref Range INTERPRETATION TEXT Not Confirmed Troponin I Result Value Ref Range Troponin I 0.03 <0.06 ng/mL CK Total with CK-MB Result Value Ref Range CK TOTAL 82 22-269 U/L CK-MB 5.3 0.6-6.3 ng/mL CK-MB Index 6.5 % Extra Green Top Tube Result Value Ref Range Extra Green Top Tube Done Creatinine was 1.0 at [facility] K 4.9. EKG: Reviewed independently by me. The tracing shows NSR, RBBB, no acute ischemic changes CXR: CXR pending ASSESSMENT and PLAN: Active Hospital Problems Diagnosis Diabetes mellitus Hyperlipidemia Obstructive sleep apnea Essential hypertension *Unstable angina Morbid obesity with BMI of 40.0-44.9, adult Resolved Hospital Problems Diagnosis Date Noted Date Resolved No resolved problems to display. * Unstable angina Assessment & Plan - Presents with progressive, worsening substernal chest pain with exertion and relieved wit h rest. He has multiple risk factors for CAD (family history, hyperlipidemia, smoking histo ry, hypertension, diabetes). - Troponin slightly elevated in [place], and discussed with Dr. Arguelles of cardiology, will plan for angiogram while hospitalized, pretest probability of CAD very high, NPO at [facility] - Daily aspirin - No active chest pain, but will start enoxaparin if he has chest pain Diabetes mellitus Assessment & Plan - Continue bid glargine, insulin sliding scale, and short-acting insulin before meals. Hem oglobin A1C in AM. Hyperlipidemia Assessment & Plan - Continue statin, check lipids in AM Obstructive sleep apnea Assessment & Plan - Untreated, and has not had sleep study, but almost certainly has HUNTER given his morbid obe sity, his RBBB, and chronic snoring - Consider overnight sleep ox study while hospitalized to see if he becomes hypoxic while s leeping Essential hypertension Assessment & Plan - Continue outpatient lisinopril, start metoprolol at low dose 25 mg bid, goal BP 120/80 Morbid obesity with BMI of 40.0-44.9, adult Assessment & Plan - BMI of 43, would benefit from weight loss DVT Prophylaxis SCD's while in bed Code Status Full Code. CMS Documentation I expect this patient will be hospitalized for greater than 2-midnights and expect the post -hospital plan to be discharge to home or to an adult foster home. Total of 70 minutes were required to complete the admission process. Reviewed and summariz ed past medical records. Medical Decisionmaker: Electronically signed by: Jasen Love MD 06/14/2016 0:39 [facility] Portions of this chart may have been created with [employer] voice recognition software. Occasi onal wrong-word or sound-alike substitutions may have occurred due to the inherent vieyra itations of voice recognition software. Please read the chart carefully and recognize, using context, where these substitutions have occurred documented in this encounter Consult Notes Todd Arguelles MD - 06/14/2016 8:31 AM PDT PATIENT NAME: Quinton Renae : 1955: AGE: 61 y.o. ADMISSION DATE: 06/13/2016 HOSPITAL DAY NUMBER: 1 PRIMARY CARE: Kaylan Montaño PA-C REFERRING PROVIDER: Jenifer Kumar CONSULTING PROVIDER: Todd Arguelles MD CARDIOLOGY CONSULTATION DATE OF CONSULTATION: 06/14/16 REASON FOR CONSULT: Angina with elevated troponin I HISTORY OF PRESENT ILLNESS: Quinton Renae is a 61 y.o. male with a plethora of cardiovascular risk factors. He was admi t[facility] on 06/13/2016 for Unstable angina . He has had a month or more of exertional chest discomfort that, over time, has been produce d with less and less effort. He had prolonged pain and presented to [facility] ER where he had a slightly elevated troponin. He's had no pain since presentation. He states he has hyp ertension, hyperlipidemia, diabetes but not diabetes. NYHA Class: III- Symptoms with minimal exertion PAST MEDICAL HISTORY Episode of sepsis from a right lower leg infection complicated by renal failure about one y ear ago. Hypertension Lipid disorder Type 2 diabetes with peripheral neuropathy. Sleep apnea PAST SURGICAL HISTORY Incision and drainage of abscess on right calf. FAMILY HISTORY Father of [place] about age 60. SOCIAL HISTORY Does not smoke. Formerly smoked. OUTPATIENT MEDICATIONS Prescriptions prior to admission Medication Sig Dispense Refill aspirin 81 mg EC tablet Take 81 mg by mouth Daily. cholecalciferol (VITAMIN D-3) 5000 units TABS Take by mouth Daily. cyanocobalamin (VITAMIN B-12) 500 mcg tablet Take 500 mcg by mouth Daily. hydrophilic ointment Apply 120 g topically Daily. insulin aspart (NOVOLOG PENFILL) 100 units/mL injection cartridge Inject 22 Units under the skin 3 times daily (before meals). insulin glargine (LANTUS SOLOSTAR) 100 units/mL injection (pen) Inject 50 Units under t he skin 2 times daily. lisinopril (PRINIVIL,ZESTRIL) 40 MG tablet Take 40 mg by mouth Daily. metFORMIN (GLUCOPHAGE) 1000 MG tablet Take 1,000 mg by mouth 2 times daily (with breakf ast & dinner). rosuvastatin (CRESTOR) 20 mg tablet Take 20 mg by mouth nightly. ALLERGIES No Known Allergies REVIEW OF SYSTEMS See history and physical. PHYSICAL EXAM Vital signs: Filed Vitals: 06/14/16 0733 BP: 131/62 Pulse: 75 Temp: 36.3 C (97.3 F) Resp: 16 Admit Weight: Weight: 132.9 kg (292 lb 15.9 oz) Current weight: Weight: 131 kg (288 lb 12.8 oz) Body mass index is 42.63 kg/(m^2). General appearance: Comfortable. Conversant and pleasant. Head and neck: No evidence of trauma. EOMs normal for age. PER. Neck thick and obese. Range of motion unremarkable. Bruit none. Chest: Configuration: normal. Respiratory effort and pattern: normal. Chest wall: not t jairo. Auscultation: clear with equal and normal breath sounds. Cardiovascular Jugular veins: difficult to evaluate Carotid arteries: symmetric with normal upstroke and amplitude. Palp/Percussion: PMI: difficult to evaluate. No lift or abnormal precordial motion. Auscultation: normal S1 S2; no gallop or rub or click Murmur: none Femoral arteries: symmetric and easily palpable without bruit. Pulses: Left: Radial nl DP nl PT obscured Right Radial nl DP nl PT obscured by edema Gastrointestinal Abdomen: soft without tenderness. Obesity precludes adequate palpation. Questionable hepatomegaly? Mental Status/Neurological Grossly oriented. No obvious motor or cranial nerve deficits. Affect/Mood: appropriate. Extremities No clubbing or cyanosis. Moderate bilateral LE edema, right > left. Skin Unremarkable LABS: Troponin levels here are borderline, 0.03 Creatinine is 0.9 ECG: Sinus rhythm and RBBB. No Q waves or ST deviation DIAGNOSES AND ASSESSMENTS: 1. Unstable angina 2. Leg edema 3. He may have right heart failure. Hard to say PLAN OR RECOMMENDATIONS: Cardiac catheterization, R&L with coronary angiography. I appreciate the opportunity of participating in the care of this patient. Electronically signed by: Todd Arguelles MD 06/14/2016 8:31 Portions of this chart may have been created with [employer] voice recognition software. Occasi onal wrong-word or sound-alike substitutions may have occurred due to the inherent vieyra itations of voice recognition software. Please read the chart carefully and recognize, using context, where these substitutions have occurred. documented in this encounter Miscellaneous Notes eICU Note - Maile Love RN - 06/14/2016 6:27 PM PDTGround ambulance crew assumed care, to transfer to [facility]. Right groin site remains without bleeding, swelling, hematoma. Pulses intact. P DTPlan of Care - Maile Love RN - 06/14/2016 5:04 PM PDTProblem: Patient Care Overview (Adult) Goal: Care Team Goals & Evaluation PROBLEM-RELATED GOALS: Quinton will no longer complain of chest pain by 06/14/2016 Quinton will keep his oxygen saturation >92% by 06/14/2016 STRATEGY TO ACHIEVE GOALS: Monitor for chest pain and administer medication as needed. Provide supplementary oxygen therapy as needed. RESTRAINT-RELATED GOALS: STRATEGIES TO ACHIEVE RESTRAINT GOALS: Outcome: Unchanged Goal Evaluation: No chest discomfort today. Heart cath with triple vessel disease. Awaiting transport to [facility]. Right groin without swelling, hematoma. Scant amt of blood at inser tion site. Pedal pulses intact, chronic numbness unchanged. Color WNL. Post cath vascular an d groin checks stable per post procedure protocol. lan of Care - Mica Mcdonald RN - 06/14/2016 1:52 PM PDTProblem: Discharge Planning Goal: Patient will be discharged in a safe manner Outcome: Unchanged I visited with Mr. Renae this afternoon regarding discharge planning. He lives with his Wi fe and adult Daughter in a one level home with no steps to the entrance located in [place], [place]. He is normally independent and drives prior to this hospitalization. His PCP is Dr. Guru Montaño from the [facility]. He uses the [facility] pharmacy. He owns a cane. He has no preference regarding a DME agency. He declines Home Health services. He would be agreeable to having the [facility] RN from [facility] visit him at home. He declines to discuss a "Plan B" at this time. He said that he may be sent to another hospit al for heart surgery according to Dr. Arguelles. His or Daughter will transport him home a fter discharge if he does discharge home before his surgery. CM please follow up closer to discharge. There are no other questions at this time. Electronically signed by: Mica de RN 06/14/2016 13:51 lan of Salomon Solano RN - 06/14/2016 5:08 AM PDTProblem: Patient Care Overview (Adult) Goal: Care Team Goals & Evaluation PROBLEM-RELATED GOALS: Quinton will no longer complain of chest pain by 06/14/2016 Quinton will keep his oxygen saturation >92% by 06/14/2016 STRATEGY TO ACHIEVE GOALS: Monitor for chest pain and administer medication as needed. Provide supplementary oxygen therapy as needed. RESTRAINT-RELATED GOALS: STRATEGIES TO ACHIEVE RESTRAINT GOALS: Goal Evaluation:Sleep apnea noted overnight. Lowest Oxygen saturation on room air when slee ping noted to be 66%. Placed client on 4L nasal cannula. lan of Salomon Solano RN - 06/14/2016 4:59 AM PDTProblem: Patient Care Overview (Adult) Goal: Care Team Goals & Evaluation PROBLEM-RELATED GOALS: Quinton will no longer complain of chest pain by 06/14/2016 Quinton will keep his oxygen saturation >92% by 06/14/2016 STRATEGY TO ACHIEVE GOALS: Monitor for chest pain and administer medication as needed. Provide supplementary oxygen therapy as needed. RESTRAINT-RELATED GOALS: STRATEGIES TO ACHIEVE RESTRAINT GOALS: Goal Evaluation: Monitored for episodes of chest pain. Monitored Oxygen saturation overnigh t. No chest pain noted. lan of Care - Lidia Ingram RRT - 06/14/2016 2:23 AM PDTProblem: Patient Care Overview (Adult) Goal: Care Team Goals & Evaluation PROBLEM-RELATED GOALS: Quinton will no longer complain of chest pain by 06/14/2016 Quinton will keep his oxygen saturation >92% by 06/14/2016 STRATEGY TO ACHIEVE GOALS: Monitor for chest pain and administer medication as needed. Provide supplementary oxygen therapy as needed. RESTRAINT-RELATED GOALS: STRATEGIES TO ACHIEVE RESTRAINT GOALS: Goal Evaluation: RN placed pt on 2 lpm nc. Sao2 94% on 2 lpm ssessment & Plan N ote - Jasen Love MD - 06/14/2016 12:38 AM PDTAssociated Problem(s): Essential hypert ension- Continue outpatient lisinopril, start metoprolol at low dose 25 mg bid ssessment & Plan Ger - Van Love MD - 06/14/2016 12:37 AM PDTAssociated Problem(s): Diabetes mellitus (HCC)- Contin ue bid glargine, insulin sliding scale, and short-acting insulin before meals ssessment & Plan Ger - Jules Love MD - 06/14/2016 12:37 AM PDTAssociated Problem(s): Hyperlipidemia- Continue statin, check lipids in AM ssessment & Plan Jasen Durand MD - 06/14/2016 12:37 AM PDTAssociated Problem(s) : Morbid obesity with BMI of 40.0-44.9, adult (HCC)- BMI of 43, would benefit from weight lo ss ssessment & Plan Jasen Durand MD - 06/14/2016 12:37 AM PDTAssociated Problem(s): Obstructive sle ep apnea- Untreated, and has not had sleep study, but almost certainly has HUNTER given his mor bid obesity, his RBBB, and chronic snoring - Consider overnight sleep ox study while hospitalized to see if he becomes hypoxic while s leeping ssessment & Plan Jasen Durand MD - 06/14/2016 12:35 AM PDTAssociated Problem(s): Unstable spike zayas ([facility])- Presents with progressive, worsening substernal chest pain with exertion reliev ed with rest, and he has every risk factor for CAD (family history, hyperlipidemia, smoking history, hypertension, diabetes, obesity, HUNTER) - Troponin slightly elevated in [place], and discussed with Dr. Arguelles of cardiology, will plan for angiogram while hospitalized, pretest probability of CAD very high, [facility] - Daily aspirin - No active chest pain, but will start enoxaparin if he has chest pain documented in this encounter Plan of Treatment Not on filedocumented as of this encounter Procedures + +--------+ + + + | Procedure Name | Priori | Date/Time | Associated Diagnosis | Comments | | | ty | | | | + +--------+ + + + | POC GLUCOSE | Routin | 06/14/2016 | | Results for this | | | e | 5:19 PM | | procedure are in the | | | | PDT | | results section. | + +--------+ + + + | POC GLUCOSE | Routin | 06/14/2016 | | Results for this | | | e | 11:13 AM | | procedure are in the | | | | PDT | | results section. | + +--------+ + + + | CV RHC | Routin | 06/14/2016 | | Results for this | | | e | 11:02 AM | | procedure are in the | | | | PDT | | results section. | + +--------+ + + + | CV LHC | Routin | 06/14/2016 | | Results for this | | | e | 11:02 AM | | procedure are in the | | | | PDT | | results section. | + +--------+ + + + | POCT BLOOD GAS, COOX | Routin | 06/14/2016 | | Results for this | | | e | 9:58 AM | | procedure are in the | | | | PDT | | results section. | + +--------+ + + + | POCT BLOOD GAS, COOX | Routin | 06/14/2016 | | Results for this | | | e | 9:56 AM | | procedure are in the | | | | PDT | | results section. | + +--------+ + + + | POC GLUCOSE | Routin | 06/14/2016 | | Results for this | | | e | 6:33 AM | | procedure are in the | | | | PDT | | results section. | + +--------+ + + + | LIPID PANEL | Routin | 06/14/2016 | | Results for this | | | e | 3:27 AM | | procedure are in the | | | | PDT | | results section. | + +--------+ + + + | TROPONIN I | Routin | 06/14/2016 | | Results for this | | | e | 3:27 AM | | procedure are in the | | | | PDT | | results section. | + +--------+ + + + | CBC WITH | Routin | 06/14/2016 | | Results for this | | DIFFERENTIAL | e | 3:27 AM | | procedure are in the | | | | PDT | | results section. | + +--------+ + + + | HEMOGLOBIN A1C | Routin | 06/14/2016 | | Results for this | | | e | 3:27 AM | | procedure are in the | | | | PDT | | results section. | + +--------+ + + + | CK TOTAL AND CK-MB | Routin | 06/14/2016 | | Results for this | | | e | 3:27 AM | | procedure are in the | | | | PDT | | results section. | + +--------+ + + + | BASIC METABOLIC | Routin | 06/14/2016 | | Results for this | | PANEL | e | 3:27 AM | | procedure are in the | | | | PDT | | results section. | + +--------+ + + + | CULTURE, MRSA | Routin | 06/13/2016 | | Results for this | | | e | 11:10 PM | | procedure are in the | | | | PDT | | results section. | + +--------+ + + + | EXTRA GREEN TOP TUBE | Routin | 06/13/2016 | | Results for this | | | e | 10:39 PM | | procedure are in the | | | | PDT | | results section. | + +--------+ + + + | TROPONIN I | Routin | 06/13/2016 | | Results for this | | | e | 10:35 PM | | procedure are in the | | | | PDT | | results section. | + +--------+ + + + | CK TOTAL AND CK-MB | Routin | 06/13/2016 | | Results for this | | | e | 10:35 PM | | procedure are in the | | | | PDT | | results section. | + +--------+ + + + | ECG 12 LEAD | RICCO | 06/13/2016 | | Results for this | | | | 10:28 PM | | procedure are in the | | | | PDT | | results section. | + +--------+ + + + | POC GLUCOSE | Routin | 06/13/2016 | | Results for this | | | e | 10:10 PM | | procedure are in the | | | | PDT | | results section. | + +--------+ + + + | ECG - EXTERNAL SCAN | | 06/13/2016 | | Results for this | | | | 12:00 AM | | procedure are in the | | | | PDT | | results section. | + +--------+ + + + | ECG - EXTERNAL SCAN | | 06/13/2016 | | Results for this | | | | 12:00 AM | | procedure are in the | | | | PDT | | results section. | + +--------+ + + + documented in this encounter Results POC Glucose (06/14/2016 5:19 PM PDT) + +-------+ + + + | Component | Value | Ref Range | Performed | Pathologist | | | | | At | Signature | + +-------+ + + + | Glucose, | 144 | 70 - 150 mg/dL | [facility] | | | POC | | | [facility] | | | | | | [facility] | | | | | | [place] - | | | | | | LABORATORY | | + +-------+ + + + + + | Specimen | + + | Blood | + + + + + + + | Performing | Address | City/State/Zipcode | Phone Number | | Organization | | | | + + + + + | [facility] | [address] | [place] | [phone] | | [facility] | | [address] | | | - LABORATORY | | | | + + + + + POC Glucose (06/14/2016 11:13 AM PDT) + +---------+ + + + | Component | Value | Ref Range | Performed | Pathologist | | | | | At | Signature | + +---------+ + + + | Glucose, | 215 (H) | 70 - 150 mg/dL | [facility] | | | POC | | | [facility] | | | | | [facility] | | | | | | [facility] - | | | | | | LABORATORY | | + +---------+ + + + + + | Specimen | + + | Blood | + + + + + + + | Performing | Address | City/State/Zipcode | Phone Number | | Organization | | | | + + + + + | [facility] | [address] | [place] | [phone] | | [facility] | | [address] | | | - LABORATORY | | | | + + + + + CV CARDIAC PROCEDURE (06/14/2016 11:02 AM PDT) + + | Specimen | + + | | + + + + | Addenda | + + | Addendum by Todd Arguelles MD on 06/14/2016 2:30 PM RIGHT AND LEFT | | CARDIAC CATHETERIZATION With ANGIOGRAPHY PATIENT NAME/: Quinton Renae, | | (1955) DATE OF PROCEDURE: 06/14/2016 | | SQL SERVER DBA: Todd Arguelles MD PROCEDURES PERFORMED: Coronary | | Angiography Right Heart Catheterization Left Ventriculography Indications: | | Unstable angina and suspected pulmonary hypertension Brief Description of Procedure | | Following informed consent both groins was prepped and draped. A right femoral | | approach was used. Using ultrasound and fluoroscopy vascular access was obtained in | | the femoral artery and vein with considerable difficulty. A 6 F sheath was placed in | | the artery and a 7 F in the vein. Right heart pressure and flow data were recorded | | using a balloon tipped thermodilution catheter. Coronary angiography was | | subsequently performed using listed diagnostic coronary catheters. Hemostasis was | | obtained at the arterial site with a closure device. Manual compression was used for | | venous hemostasis. The procedure had no immediate complications. FINDINGS: | | Hemodynamics: RA - 10 mm Hg RV - 46/10 mm Hg PA - 48/15 mm Hg with a mean of | | 29 mmHg PCW - 23 mm Hg Ao - 116/72 mm Hg with a mean of 90 mm Hg LV - Not | | done Using the Hayes method, cardiac output is 6.8 L/min Using thermodilution, | | cardiac output is 7.3 L/min (See the separate hemodynamic report for full details. | | Left main artery: Separate ostia are present for the LAD, diminutive ramus | | intermedius and circumflex coronary artery. No left main artery is present Left | | anterior descending artery: The left anterior descending artery is a type 2 vessel. | | It provides a fairly large high diagonal branch, a large bifurcating first septal | | legal records manager, 1 second diagonal branch then terminates at the apex. The 75% stenosis | | is found in the proximal segment of the LAD. A 75% stenosis is seen in the high | | diagonal. Left circumflex artery: The left circumflex artery is a medium caliber | | vessel that is non dominant. The vessel consists of 4 obtuse marginal branches the | | first of which is fairly small. The second diagonal, largest of all, has a long 50% | | stenosis in its proximal segment. Proximal circumflex is diffusely diseased without | | an identifiable normal segment. Degree of stenosis is at least 30%. Right | | coronary artery: The right coronary artery is a medium caliber vessel that is | | dominant. It gives rise to 3 right ventricular branches, a bifurcating posterior | | descending and about 4 posterolateral branches one of which is fairly large. The | | proximal right coronary artery contains a 75% focal stenosis. The mid right coronary | | is severely diffusely diseased throughout its entire course and terminates in a 75% | | stenosis. The distal right coronary segments have luminal irregularities without | | significant obstruction. CONCLUSIONS: 1. Mild pulmonary hypertension 2. Severe | | three vessel coronary artery disease characterized by a 75% stenosis in the proximal | | LAD, a 75% stenosis in a high diagonal branch, tandem 75% stenoses in the proximal and | | mid right coronary artery and a 50% stenosis in the second obtuse marginal branch 3. 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 Below is the cardiac cath report as | | generated by the [facility] PRIMARY CARE PROVIDER: Kaylan Montaño PA-C | + + + + -+ | Narrative | Performed At | + + -+ | Cardiac | | | Diagnostic Report Demographics Patient Name ADA Downey | | | Gender Male Patient Number [id number] | | | Race Visit Number | | | [id number] Height 69.02 inches | | | Accession Number [id number] Weight | | | 288.81 pounds Date of 1955 BSA | | | 2.42 m^2 Age 61 year(s) | | | BMI 42.63 kg/m^2 Referring | | | Melony ARGUELLES, Date of Study 06/14/2016 Physician | | | MD Diagnostic Melony ARGUELLES, Interventional | | | Melony ARGUELLES Physician | | | Physician ProcedureProcedure Type Diagnostic | | | procedure: LHC (includes coronaries and LV gram if done), Right Heart | | | Catheterization , CV CARDIAC CATH Risk Factors The patient risk | | | factors include:obesity, arterial hypertension, diabetes, Last | | | creatinine 0.9 mg/dl, Creatinine clearance 157.69 ml/min and | | | dyslipidemia. Angiographic findings Cardiac Arteries and Lesion | | | Findings LAD: Multiple stenosis.There is a 75% stenosis noted in the | | | proximal portionof the vessel.There is a 75% stenosis noted in the | | | proximal segment of the first diagonal. LCx: Multiple stenosis.There | | | is moderate diffuse disease noted.There is a 50% stenosis noted in the | | | proximal portion of the first majorobtuse marginal branch. RCA: | | | Multiple stenosis.There is a 75% stenosis noted in the proximal | | | portionof the vessel.There is a 75% stenosis noted in the mid portion | | | of the vessel. Ramus: Abnormal.Small caliber vessel. Conclusions | | | Signatures | | | | | | Electronically signed by Melony ARGUELLES MD(Diagnostic Physician) on | | | 06/14/2016 14:18 | | | | | | Admission DataAdmission Date: 06/13/2016 Admission Status: Inpatient. | | | Procedure DataProcedure DateDate: 06/14/2016Start: 08:52 The procedure | | | was explained in detail to the patient. Risks, complicationsand | | | alternative treatments were reviewed. Written consent was obtained. | | | Diagnostic Cath Status: Urgent Indications: Unstable angina. | | | Fluoroscopy Time: Total: 10:12 minutes. Contrast Material - | | | [id number] Entry Locations - Percutaneous access was performed | | | through the Right Femoral artery. A 6 Fr sheath was inserted. | | | Hemostasis was successfully obtained using Perclose ProGlide | | | (Quinones). - Percutaneous access was performed through the Right | | | Femoral vein. A 7 Fr sheath was inserted. Hemostasis was | | | successfully obtained using Manual Compression. Diagnostic | | | Catheters - SWAN-GRAEME was used for Right heart cath. - 6F JL4 was | | | used for Left coronary angiography. - 6Fr JR4 was used for Right | | | coronary angiography. Hemodynamics Condition: Rest Actual: | | | Estimated: 284.81Heart rate: 71 bpm Oxygen saturation - Location: | | | AO, Saturation %: 97.9, Hgb: 12.8, - Location: PA, Saturation %: | | | 73.2, Hgb: 12.8, Pressure - RA - 14/11 (10) - RV - 41/12 ,15 - | | | PA - 39/22 (29) - PCW - 23/21 (22) - AO - 119/63 (89) Cardiac | | | output - Time: 06/14/2016 10:28 Cardiac Output (l/min): 8.5 Use: | | | True - Time: 06/14/2016 10:28 Cardiac Output (l/min): 5.98 Use: | | | False - Time: 06/14/2016 10:29 Cardiac Output (l/min): 12.41 Use: | | | False - Time: 06/14/2016 10:29 Cardiac Output (l/min): 7.6 Use: | | | True - Time: 06/14/2016 10:30 Cardiac Output (l/min): 6.45 Use: | | | True - Time: 06/14/2016 10:30 Cardiac Output (l/min): 7.07 Use: | | | True Cardiac output - Method: Hayes, CO (l/min): 6.63, CI (l/min/m2): | | | 2.7, SV (ml): 92.78 - Method: Thermal, CO (l/min): 7.405, CI | | | (l/min/m2): 3.1, SV (ml): 100.75 Shunts Oxygen values O2 | | | [id number] Flows (l/min)Qs6.63 Vascular resistance - CO | | | method: Qp or Qs, TSVR: 1070.51, SVR: 949.1, PVR/SVR: - CO method: | | | Thermal, TSVR: 958.47, SVR: 849.76, TPSVR: 317.02, PVR: 79.34, | | | TPVR/TSVR: 0.33, PVR/SVR: 0.09 - CO method: Hayes, TSVR: 1070.51, | | | SVR: 949.1, TPSVR: 354.07, PVR: 88.61, TPVR/TSVR: 0.33, PVR/SVR: | | | 0.09 | | | | | |Admission Data | | |Admission Date: 06/13/2016 | | | | | |Admission Status: Inpatient. | | | | | |Procedure Data | | |Procedure Date | | |Date: 06/14/2016Start: 08:52 | | | | | |The procedure was explained in detail to the patient. Risks, complications | | |and alternative treatments were reviewed. Written consent was obtained. | | | | | |Diagnostic Cath Status: Urgent | | | | | |Indications: Unstable angina. | | | | | |Fluoroscopy Time: Total: 10:12 minutes. | | | | | |Contrast Material | | | - [id number] ml | | | | | |Entry Locations | | | - Percutaneous access was performed through the Right Femoral artery. A | | |6 | | | Fr sheath was inserted. Hemostasis was successfully obtained using | | | Perclose ProGlide (Quinones). | | | | | | - Percutaneous access was performed through the Right Femoral vein. A 7 | | |Fr | | | sheath was inserted. Hemostasis was successfully obtained using Manual | | | Compression. | | | | | |Diagnostic Catheters | | | - SWAN-GRAEME was used for Right heart cath. | | | | | | - 6F JL4 was used for Left coronary angiography. | | | | | | - 6Fr JR4 was used for Right coronary angiography. | | | | | | Hemodynamics | | | | | | Condition: Rest | | | | | | Actual: Estimated: 284.81Heart rate: 71 bpm | | | | | |Oxygen saturation | | | - Location: AO, Saturation %: 97.9, Hgb: 12.8, | | | | | | - Location: PA, Saturation %: 73.2, Hgb: 12.8, | | | | | |Pressure | | | - RA - 14/11 (10) | | | | | | - RV - 41/12 ,15 | | | | | | - PA - 39/22 (29) | | | | | | - PCW - 23/ (22) | | | | | | - AO - 119/63 (89) | | | | | |Cardiac output | | | - Time: 06/14/2016 10:28 Cardiac Output (l/min): 8.5 Use: True | | | | | | - Time: 06/14/2016 10:28 Cardiac Output (l/min): 5.98 Use: False | | | | | | - Time: 06/14/2016 10:29 Cardiac Output (l/min): 12.41 Use: False | | | | | | - Time: 06/14/2016 10:29 Cardiac Output (l/min): 7.6 Use: True | | | | | | - Time: 06/14/2016 10:30 Cardiac Output (l/min): 6.45 Use: True | | | | | | - Time: 06/14/2016 10:30 Cardiac Output (l/min): 7.07 Use: True | | | | | |Cardiac output | | | - Method: Hayes, CO (l/min): 6.63, CI (l/min/m2): 2.7, SV (ml): 92.78 | | | | | | - Method: Thermal, CO (l/min): 7.405, CI (l/min/m2): 3.1, SV (ml): | | |100.75 | | | | | |Shunts | | | | | | Oxygen values | | | | | | O2 zohyvjnobbm195.81 | | | | | | Flows (l/min)Qs6.63 | | | | | |Vascular resistance | | | - CO method: Qp or Qs, TSVR: 1070.51, SVR: 949.1, PVR/SVR: | | | | | | - CO method: Thermal, TSVR: 958.47, SVR: 849.76, TPSVR: 317.02, PVR: | | | 79.34, TPVR/TSVR: 0.33, PVR/SVR: 0.09 | | | | | | - CO method: Hayes, TSVR: 1070.51, SVR: 949.1, TPSVR: 354.07, PVR: 88.61, | | | TPVR/TSVR: 0.33, PVR/SVR: 0.09 | | + + -+ + + | Procedure Note | + + | Todd Arguelles MD - 06/14/2016 2:30 PM PDT Cardiac Diagnostic Report | | | | Demographics | | | | Patient Name ADA Downey Gender Male | | | | Patient Number [id number] Race | | | | Visit Number [id number] Height 69.02 inches | | | | Accession Number [id number] Weight 288.81 pounds | | | | Date of 1955 BSA 2.42 m^2 | | | | Age 61 year(s) BMI 42.63 kg/m^2 | | | | Referring Melony ARGUELLES, Date of Study 06/14/2016 | | Physician | | | | Diagnostic Melony ARGUELLES, Interventional Melony ARGUELLES, | | Physician MD Physician NEGRON | | | | Procedure | | Procedure Type | | | | Diagnostic procedure: LHC (includes coronaries and LV gram if done), Right | | Heart Catheterization , CV CARDIAC CATH | | | | Risk Factors | | | | The patient risk factors include:obesity, arterial hypertension, diabetes, | | Last creatinine 0.9 mg/dl, Creatinine clearance 157.69 ml/min and | | dyslipidemia. | | | | Angiographic findings | | | | Cardiac Arteries and Lesion Findings | | | | LAD: Multiple stenosis.There is a 75% stenosis noted in the proximal portion | | of the vessel. | | There is a 75% stenosis noted in the proximal segment of the first diagonal. | | | | LCx: Multiple stenosis.There is moderate diffuse disease noted. | | There is a 50% stenosis noted in the proximal portion of the first major | | obtuse marginal branch. | | | | RCA: Multiple stenosis.There is a 75% stenosis noted in the proximal portion | | of the vessel. | | There is a 75% stenosis noted in the mid portion of the vessel. | | | | Ramus: Abnormal.Small caliber vessel. | | | | Conclusions | | | | Signatures | | | | | | | | | | | | Admission Data | | Admission Date: 06/13/2016 | | | | Admission Status: Inpatient. | | | | Procedure Data | | Procedure Date | | Date: 06/14/2016Start: 08:52 | | | | The procedure was explained in detail to the patient. Risks, complications | | and alternative treatments were reviewed. Written consent was obtained. | | | | Diagnostic Cath Status: Urgent | | | | Indications: Unstable angina. | | | | Fluoroscopy Time: Total: 10:12 minutes. | | | | Contrast Material | | - [id number] ml | | | | Entry Locations | | - Percutaneous access was performed through the Right Femoral artery. A 6 | | Fr sheath was inserted. Hemostasis was successfully obtained using | | Perclose ProGlide (Quinones). | | | | - Percutaneous access was performed through the Right Femoral vein. A 7 Fr | | sheath was inserted. Hemostasis was successfully obtained using Manual | | Compression. | | | | Diagnostic Catheters | | - SWAN-GRAEME was used for Right heart cath. | | | | - 6F JL4 was used for Left coronary angiography. | | | | - 6Fr JR4 was used for Right coronary angiography. | | | | Hemodynamics | | | | Condition: Rest | | | | Actual: Estimated: 284.81Heart rate: 71 bpm | | | | Oxygen saturation | | - Location: AO, Saturation %: 97.9, Hgb: 12.8, | | | | - Location: PA, Saturation %: 73.2, Hgb: 12.8, | | | | Pressure | | - RA - 14/11 (10) | | | | - RV - 41/12 ,15 | | | | - PA - 39/22 (29) | | | | - PCW - 23/21 (22) | | | | - AO - 119/63 (89) | | | | Cardiac output | | - Time: 06/14/2016 10:28 Cardiac Output (l/min): 8.5 Use: True | | | | - Time: 06/14/2016 10:28 Cardiac Output (l/min): 5.98 Use: False | | | | - Time: 06/14/2016 10:29 Cardiac Output (l/min): 12.41 Use: False | | | | - Time: 06/14/2016 10:29 Cardiac Output (l/min): 7.6 Use: True | | | | - Time: 06/14/2016 10:30 Cardiac Output (l/min): 6.45 Use: True | | | | - Time: 06/14/2016 10:30 Cardiac Output (l/min): 7.07 Use: True | | | | Cardiac output | | - Method: Hayes, CO (l/min): 6.63, CI (l/min/m2): 2.7, SV (ml): 92.78 | | | | - Method: Thermal, CO (l/min): 7.405, CI (l/min/m2): 3.1, SV (ml): 100.75 | | | | Shunts | | | | Oxygen values | | | | O2 [id number] | | | | Flows (l/min)Qs6.63 | | | | Vascular resistance | | - CO method: Qp or Qs, TSVR: 1070.51, SVR: 949.1, PVR/SVR: | | | | - CO method: Thermal, TSVR: 958.47, SVR: 849.76, TPSVR: 317.02, PVR: | | 79.34, TPVR/TSVR: 0.33, PVR/SVR: 0.09 | | | | - CO method: Hayes, TSVR: 1070.51, SVR: 949.1, TPSVR: 354.07, PVR: 88.61, | | TPVR/TSVR: 0.33, PVR/SVR: 0.09 | + + POCT Blood Gas, Coox (06/14/2016 9:58 AM PDT) + +-------+ + + + | Component | Value | Ref Range | Performed | Pathologist | | | | | At | Signature | + +-------+ + + + | Carboxyhemo | | | [facility] | | | globin | | | [facility] | | | [facility], [facility]OC | | | [facility] | | | | | | C[facility] - | | | | | | LABORATORY | | + +-------+ + + + | Deoxyhemogl | | | [facility] | | | obin [facility], | | | [facility] | | | POC | | | [facility] | | | | | | CENTER - | | | | | | LABORATORY | | + +-------+ + + + | Hemoglobin | . | 13.2 - 17.0 | [facility] | | | [facility] | | g/dL | [facility] | | | | | | [facility] | | | | | | C[facility] - | | | | | | LABORATORY | | + +-------+ + + + | Methemoglob | | | [facility] | | | in [facility], | | | [facility] | | | POC | | | MEDICAL | | | | | | CENTER - | | | | | | LABORATORY | | + +-------+ + + + | O2 Capacity | | | [facility] | | | [facility] | | | [facility] | | | | | | [facility] | | | | | | CENTER - | | | | | | LABORATORY | | + +-------+ + + + | O2 Content | . | 94 - 97 % | [facility] | | | [facility] | | | [facility] | | | | | | [facility] | | | | | | [facility] - | | | | | | LABORATORY | | + +-------+ + + + + + | Specimen | + + | Blood specimen | | (specimen) | + + + + + | Narrative | Performed At | + + + | | | + + + + + + + + | Performing | Address | City/State/Zipcode | Phone Number | | Organization | | | | + + + + + | [facility] | [address] | [place] | [phone] | | [facility] | | [address] | | | - LABORATORY | | | | + + + + + POCT Blood Gas, Coox (06/14/2016 9:56 AM PDT) + +-------+ + + + | Component | Value | Ref Range | Performed | Pathologist | | | | | At | Signature | + +-------+ + + + | Carboxyhemo | | | [facility] | | | globin | | | [facility] | | | [facility] | | | [facility] | | | | | | CENTER - | | | | | | LABORATORY | | + +-------+ + + + | Deoxyhemogl | | | [facility] | | | obin [facility], | | | [facility] | | | POC | | | MEDICAL | | | | | | CENTER - | | | | | | LABORATORY | | + +-------+ + + + | Hemoglobin | . | 13.2 - 17.0 | [facility] | | | [facility] | | g/dL | [facility] | | | | | | MEDICAL | | | | | | CENTER - | | | | | | LABORATORY | | + +-------+ + + + | Methemoglob | | | [facility] | | | in [facility], | | | [facility] | | | POC | | | MEDICAL | | | | | | CENTER - | | | | | | LABORATORY | | + +-------+ + + + | O2 Capacity | | | [facility] | | | [facility] | | | [facility] | | | | | | MEDICAL | | | | | | CENTER - | | | | | | LABORATORY | | + +-------+ + + + | O2 Content | . | 94 - 97 % | [facility] | | | [facility] | | | [facility] | | | | | | MEDICAL | | | | | | CENTER - | | | | | | LABORATORY | | + +-------+ + + + + + | Specimen | + + | Blood specimen | | (specimen) | + + + + + | Narrative | Performed At | + + + | | | + + + + + + + + | Performing | Address | City/State/Zipcode | Phone Number | | Organization | | | | + + + + + | [facility] | [address] | [place] | [phone] | | [facility] | | [address] | | | - LABORATORY | | | | + + + + + POC Glucose (06/14/2016 6:33 AM PDT) + +---------+ + + + | Component | Value | Ref Range | Performed | Pathologist | | | | | At | Signature | + +---------+ + + + | Glucose, | 212 (H) | 70 - 150 mg/dL | [facility] | | | POC | | | [facility] | | | | | | [facility] | | | | | | C[facility] - | | | | | | LABORATORY | | + +---------+ + + + + + | Specimen | + + | Blood | + + + + + + + | Performing | Address | City/State/Zipcode | Phone Number | | Organization | | | | + + + + + | [facility] | [address] | [place] | [phone] | | [facility] | | [address] | | | - LABORATORY | | | | + + + + + Hemoglobin A1C (06/14/2016 3:27 AM PDT) + +---------+ + + + | Component | Value | Ref Range | Performed | Pathologist | | | | | At | Signature | + +---------+ + + + | Hemoglobin | 9.4 (H) | 4.3 - 6.0 % | [facility] | | | A1c | | | [facility] | | | | | | MEDICAL | | | | | | CENTER - | | | | | | LABORATORY | | + +---------+ + + + | Estimated | 223 | mg/dL | [facility] | | | Average | | | [facility] | | | Glucose | | | MEDICAL | | | | | | CENTER - | | | | | | LABORATORY | | + +---------+ + + + + + | Specimen | + + | Blood | + + + + + + + | Performing | Address | City/State/Zipcode | Phone Number | | Organization | | | | + + + + + | [facility] | [address] | [place], [place] | [phone] | | [facility] | | [address] | | | - LABORATORY | | | | + + + + + CBC with Differential (06/14/2016 3:27 AM PDT) + + + + + + | Component | Value | Ref Range | Performed | Pathologist | | | | | At | Signature | + + + + + + | White Blood | 8.7 | 4.0 - 11.0 K/uL | [facility] | | | Cells | | | [facility] | | | | | | [facility] | | | | | | CENTER - | | | | | | LABORATORY | | + + + + + + | Red Blood | 4.58 | 4.30 - 5.70 | [facility] | | | Cells | | M/uL | [facility] | | | | | [facility] | | | | | | [facility] - | | | | | | LAB[facility]ATORY | | + + + + + + | Hemoglobin | 13.5 | 13.5 - 18.0 | [facility] | | | | | g/dL | [facility] | | | | | | [facility] | | | | | | C[facility] - | | | | | | LABORATORY | | + + + + + + | Hematocrit | 40.1 | 40.0 - 51.0 % | [facility] | | | | | | [facility] | | | | | | [facility]ICAL | | | | | | C[facility] - | | | | | | LABORATORY | | + + + + + + | MCV | 87.4 | 83.0 - 101.0 fL | [facility] | | | | | | [facility] | | | | | | [facility] | | | | | | C[facility] - | | | | | | LABORATORY | | + + + + + + | MCH | 29.4 | 28.0 - 35.0 pg | [facility] | | | | | | [facility] | | | | | | [facility] | | | | | | C[facility] - | | | | | | LABORATORY | | + + + + + + | MCHC | 33.6 | 32.0 - 36.0 | [facility] | | | | | g/dL | [facility] | | | | | | MEDICAL | | | | | | CENTER - | | | | | | LABORATORY | | + + + + + + | RDW-CV | 13.2 | <15.0 % | [facility] | | | | | | [facility] | | | | | | [facility] | | | | | | CENTER - | | | | | | LABORATORY | | + + + + + + | Platelet | 192 | 140 - 440 K/uL | [facility] | | | Count | | | [facility] | | | | | | MEDICAL | | | | | | CENTER - | | | | | | LABORATORY | | + + + + + + | MPV | 9.4 | fL | [facility] | | | | | | [facility] | | | | | | [facility]ICAL | | | | | | CENTER - | | | | | | LABORATORY | | + + + + + + | % | 56.3 | 45.0 - 82.0 % | [facility] | | | Neutrophils | | | [facility] | | | | | | MEDICAL | | | | | | CENTER - | | | | | | LABORATORY | | + + + + + + | % | 27.4 | 20.0 - 45.0 % | [facility] | | | Lymphocytes | | | [facility] | | | | | | MEDICAL | | | | | | CENTER - | | | | | | LABORATORY | | + + + + + + | % Monocytes | 8.9 | 4.0 - 12.0 % | [facility] | | | | | | [facility] | | | | | | [facility] | | | | | | C[facility] - | | | | | | LABORATORY | | + + + + + + | % | 6.8 (H) | 0.0 - 5.0 % | [facility] | | | Eosinophils | | | [facility] | | | | | | MEDICAL | | | | | | CENTER - | | | | | | LABORATORY | | + + + + + + | % Basophils | 0.6 | 0.0 - 1.0 % | [facility] | | | | | | [facility] | | | | | | [facility]ICAL | | | | | | CENTER - | | | | | | LABORATORY | | + + + + + + | Absolute | 4.90 | 1.80 - 8.50 | [facility] | | | Neutrophils | | K/uL | [facility] | | | | | | [facility]ICAL | | | | | | CENTER - | | | | | | LABORATORY | | + + + + + + | Absolute | 2.40 | 0.60 - 3.20 | [facility] | | | Lymphocytes | | K/uL | [facility] | | | | | | [facility]ICAL | | | | | | CENTER - | | | | | | LABORATORY | | + + + + + + | Absolute | 0.80 | 0.00 - 1.00 | [facility] | | | Monocytes | | K/uL | [facility] | | | | | | MED[facility] | | | | | | CENTER - | | | | | | LABORATORY | | + + + + + + | Absolute | 0.60 (H) | 0.00 - 0.40 | [facility] | | | Eosinophils | | K/uL | [facility] | | | | | | MEDICAL | | | | | | CENTER - | | | | | | LABORATORY | | + + + + + + | Absolute | 0.10 | 0.00 - 0.10 | [facility] | | | Basophils | | K/uL | [facility] | | | | | | MEDICAL | | | | | | CENTER - | | | | | | LABORATORY | | + + + + + + + + | Specimen | + + | Blood | + + + + + + + | Performing | Address | City/State/Zipcode | Phone Number | | Organization | | | | + + + + + | [facility] | [address] | [place] | [phone] | | [facility] | | [address] | | | - LABORATORY | | | | + + + + + Lipid Panel (06/14/2016 3:27 AM PDT) + + + + + + | Component | Value | Ref Range | Performed | Pathologist | | | | | At | Signature | + + + + + + | Triglycerid | 196 (H) | 35 - 160 mg/dL | [facility] | | | es | | | [facility] | | | | | | MEDICAL | | | | | | CENTER - | | | | | | LABORATORY | | + + + + + + | Cholesterol | 172 | 150 - 200 mg/dL | [facility] | | | | | | [facility] | | | | | | MEDICAL | | | | | | CENTER - | | | | | | LABORATORY | | + + + + + + | HDL | 37Comment: New HDL | 28 - 83 mg/dL | [facility] | | | | Reference Range as of | | [facility] | | | | May 05, 2015 | | MEDICAL | | | | Values may be 10-20% | | CENTER - | | | | lower with new, | | LABORATORY | | | | standardized method. | | | | + + + + + + | Chol/HDL | 4.6 | | [facility] | | | Ratio | | | [facility] | | | | | | MEDICAL | | | | | | CENTER - | | | | | | LABORATORY | | + + + + + + | LDL, | 96 | <=130 mg/dL | [facility] | | | Calculated | | | [facility] | | | | | | MEDICAL | | | | | | CENTER - | | | | | | LABORATORY | | + + + + + + + + | Specimen | + + | Blood | + + + + + + + | Performing | Address | City/State/Zipcode | Phone Number | | Organization | | | | + + + + + | [facility] | [address] | [place] | [phone] | | [facility] | | [address] | | | - LABORATORY | | | | + + + + + Basic Metabolic Panel (06/14/2016 3:27 AM PDT) + + + + + + | Component | Value | Ref Range | Performed | Pathologist | | | | | At | Signature | + + + + + + | Na | 134 (L) | 136 - 149 | [facility] | | | | | mmol/L | [facility] | | | | | | MED[facility] | | | | | | CENTER - | | | | | | LABORATORY | | + + + + + + | K | 4.8 | 3.5 - 5.1 | [facility] | | | | | mmol/L | [facility] | | | | | | MEDICAL | | | | | | CENTER - | | | | | | LABORATORY | | + + + + + + | Cl | 99 | 98 - 109 mmol/L | [facility] | | | | | | [facility] | | | | | | MEDICAL | | | | | | CENTER - | | | | | | LABORATORY | | + + + + + + | CO2 | 30 | 24 - 31 mmol/L | [facility] | | | | | | [facility] | | | | | | MEDICAL | | | | | | CENTER - | | | | | | LABORATORY | | + + + + + + | Anion Gap | 5 | 3 - 16 mmol/L | [facility] | | | | | | [facility] | | | | | | MEDICAL | | | | | | CENTER - | | | | | | LABORATORY | | + + + + + + | Glucose | 228 (H) | 70 - 109 mg/dL | [facility] | | | | | | [facility] | | | | | | MEDICAL | | | | | | CENTER - | | | | | | LABORATORY | | + + + + + + | BUN | 22 (H) | 7 - 18 mg/dL | [facility] | | | | | | [facility] | | | | | | [facility] | | | | | | CENTER - | | | | | | LABORATORY | | + + + + + + | Creatinine | 0.87 | 0.60 - 1.30 | [facility] | | | | | mg/dL | [facility] | | | | | | MEDICAL | | | | | | CENTER - | | | | | | LABORATORY | | + + + + + + | eGFR, | >60Comment: GLOMERULAR | >=60 | [facility] | | | non- | FILTRATION | mL/min/1.73m2 | [facility] | | | [place] | RATE,ESTIMATED | | MEDICAL | | | | mL/min/1.21j3Oxzs than | | CENTER - | | | | 60 Chronic kidney | | LABORATORY | | | | disease,if found over a | | | | | | 3-month period.Less than | | | | | | 15 Kidney failureFor | | | | | | | | | | | | Americans,multiply the | | | | | | calculated GFR by 1.21. | | | | | | | | | | + + + + + + | Calcium | 9.0 | 8.3 - 10.5 | [facility] | | | | | mg/dL | [facility] | | | | | | MEDICAL | | | | | | CENTER - | | | | | | LABORATORY | | + + + + + + | BUN/Creatin | 25.3 | | [facility] | | | ine Ratio | | | [facility] | | | | | | MEDICAL | | | | | | CENTER - | | | | | | LABORATORY | | + + + + + + + + | Specimen | + + | Blood | + + + + + + + | Performing | Address | City/State/Zipcode | Phone Number | | Organization | | | | + + + + + | [facility] | [address] | [place] | [phone] | | [facility] | | [address] | | | - LABORATORY | | | | + + + + + CK Total with CK-MB (06/14/2016 3:27 AM PDT) + +-------+ + + + | Component | Value | Ref Range | Performed | Pathologist | | | | | At | Signature | + +-------+ + + + | CK TOTAL | 78 | 22 - 269 U/L | [facility] | | | | | | [facility] | | | | | | MEDICAL | | | | | | CENTER - | | | | | | LABORATORY | | + +-------+ + + + | CK-MB | 4.6 | 0.6 - 6.3 ng/mL | [facility] | | | | | | [facility] | | | | | | MEDICAL | | | | | | CENTER - | | | | | | LABORATORY | | + +-------+ + + + | CK-MB Index | 5.9 | % | [facility] | | | | | | [facility] | | | | | | MEDICAL | | | | | | CENTER - | | | | | | LABORATORY | | + +-------+ + + + + + | Specimen | + + | Blood | + + + + + + + | Performing | Address | City/State/Zipcode | Phone Number | | Organization | | | | + + + + + | [facility] | [address] | [place] | [phone] | | [facility] | | [address] | | | - LABORATORY | | | | + + + + + Troponin I (06/14/2016 3:27 AM PDT) + + + + + + | Component | Value | Ref Range | Performed | Pathologist | | | | | At | Signature | + + + + + + | Troponin I | 0.02Comment: Reference | <0.06 ng/mL | [facility] | | | | Ranges:0.00-0.06 = | | [facility] | | | | NORMAL>0.06 = | | MEDICAL | | | | SUSPICIOUS FOR | | CENTER - | | | | MYOCARDIAL DAMAGE NOTE: | | LABORATORY | | | | Values greater than 0.50 | | | | | | ng/mL have been shown | | | | | | to be strongly | | | | | | associated with acute | | | | | | myocardial infarction. | | | | | | The [employer] | | | | | | Cardiology ([employer]) | | | | | | recommends a decision | | | | | | limit of 0.06 ng/mL for | | | | | | this assay. Results | | | | | | greater than 0.06 can | | | | | | reflect a pre-infarct | | | | | | acute coronary syndrome, | | | | | | but can also reflect | | | | | | myocardial necrosis or | | | | | | injury that is not due | | | | | | to coronary artery | | | | | | disease. Some of these | | | | | | causes are sepsis, | | | | | | hypocolemia, atrial | | | | | | fibrillation, heart | | | | | | failure, pulmonary | | | | | | embolism, myocarditis, | | | | | | myocardial contusion, | | | | | | and renal failure. The | | | | | | diagnosis of myocardial | | | | | | infarction should be | | | | | | based on a combination | | | | | | of the patient's | | | | | | clinical presentation | | | | | | and the clinical | | | | | | laboratory test results | | | | | | (especially serial | | | | | | troponin levels). | | | | + + + + + + + + | Specimen | + + | Blood | + + + + + + + | Performing | Address | City/State/Zipcode | Phone Number | | Organization | | | | + + + + + | [facility] | [address] | [place] | [phone] | | [facility] | | [address] | | | - LABORATORY | | | | + + + + + Culture, MRSA (06/13/2016 11:10 PM PDT) + + + + + + | Component | Value | Ref Range | Performed | Pathologist | | | | | At | Signature | + + + + + + | Culture | Negative for MRSA by | | [facility] | | | | chromogenic agar method | | [facility] | | | | | | [facility] | | | | | | CENTER - | | | | | | LABORATORY | | + + + + + + + + | Specimen | + + | Respiratory - Both | | anterior nares (body | | structure) | + + + + + + + | Performing | Address | City/State/Zipcode | Phone Number | | Organization | | | | + + + + + | [facility] | [address] | [place] | [phone] | | [facility] | | [address] | | | - LABORATORY | | | | + + + + + Extra Green Top Tube (06/13/2016 10:39 PM PDT) + +-------+ + + + | Component | Value | Ref Range | Performed | Pathologist | | | | | At | Signature | + +-------+ + + + | Extra Green | Done | | [facility] | | | Top Tube | | | [facility] | | | | | | [facility] | | | | | | CENTER - | | | | | | LABORATORY | | + +-------+ + + + + + | Specimen | + + | Blood | + + + + + + + | Performing | Address | City/State/Zipcode | Phone Number | | Organization | | | | + + + + + | [facility] | [address] | [place] | [phone] | | [facility] | | [address] | | | - LABORATORY | | | | + + + + + CK Total with CK-MB (06/13/2016 10:35 PM PDT) + +-------+ + + + | Component | Value | Ref Range | Performed | Pathologist | | | | | At | Signature | + +-------+ + + + | CK TOTAL | 82 | 22 - 269 U/L | [facility] | | [facility] | | | | | | [facility] - | | | | | | LABORATORY | | + +-------+ + + + | CK-MB | 5.3 | 0.6 - 6.3 ng/mL | [facility] | | | | | [facility] | | | | | | [facility] | | | | | | CENTER - | | | | | | LABORATORY | | + +-------+ + + + | CK-MB Index | 6.5 | % | [facility] | | | | | [facility] | | | | | | [facility] | | | | | | CENTER - | | | | | | LABORATORY | | + +-------+ + + + + + | Specimen | + + | Blood | + + + + + + + | Performing | Address | City/State/Zipcode | Phone Number | | Organization | | | | + + + + + | [facility] | [address] | [place] | [phone] | | [facility] | | [address] | | | - LABORATORY | | | | + + + + + Troponin I (06/13/2016 10:35 PM PDT) + + + + + + | Component | Value | Ref Range | Performed | Pathologist | | | | | At | Signature | + + + + + + | Troponin I | 0.03Comment: Reference | <0.06 ng/mL | [facility] | | | | Ranges:0.00-0.06 = | | [facility] | | | | NORMAL>0.06 = | | MEDICAL | | | | SUSPICIOUS FOR | | CENTER - | | | | MYOCARDIAL DAMAGE NOTE: | | LABORATORY | | | | Values greater than 0.50 | | | | | | ng/mL have been shown | | | | | | to be strongly | | | | | | associated with acute | | | | | | myocardial infarction. | | | | | | The [employer] | | | | | | Cardiology (ACC) | | | | | | recommends a decision | | | | | | limit of 0.06 ng/mL for | | | | | | this assay. Results | | | | | | greater than 0.06 can | | | | | | reflect a pre-infarct | | | | | | acute coronary syndrome, | | | | | | but can also reflect | | | | | | myocardial necrosis or | | | | | | injury that is not due | | | | | | to coronary artery | | | | | | disease. Some of these | | | | | | causes are sepsis, | | | | | | hypocolemia, atrial | | | | | | fibrillation, heart | | | | | | failure, pulmonary | | | | | | embolism, myocarditis, | | | | | | myocardial contusion, | | | | | | and renal failure. The | | | | | | diagnosis of myocardial | | | | | | infarction should be | | | | | | based on a combination | | | | | | of the patient's | | | | | | clinical presentation | | | | | | and the clinical | | | | | | laboratory test results | | | | | | (especially serial | | | | | | troponin levels). | | | | + + + + + + + + | Specimen | + + | Blood | + + + + + + + | Performing | Address | City/State/[facility] [place] [place] | Phone Number | | Organization | | | | + + + + + | [facility] | [address] | [place] | [phone] | | [facility] | | [address] | | | - LABORATORY | | | | + + + + + ECG 12 lead (06/13/2016 10:28 PM PDT) + + + + + + | Component | Value | Ref Range | Performed | Pathologist | | | | | At | Signature | + + + + + + | VENTRICULAR | 88 | BPM | [facility] | | | RATE EKG | | | | | + + + + + + | ATRIAL RATE | 88 | BPM | [facility] | | + + + + + + | P-R | 144 | ms | [facility] | | | INTERVAL | | | | | + + + + + + | QRS | 146 | ms | [facility] | | | DURATION | | | | | + + + + + + | Q-T | 390 | ms | [facility] | | | INTERVAL | | | | | + + + + + + | Q-T | 471 | ms | [facility] | | | INTERVAL | | | | | | (CORRECTED) | | | | | + + + + + + | P WAVE AXIS | 60 | degrees | [facility] | | + + + + + + | QRS AXIS | 58 | degrees | [facility] | | + + + + + + | T AXIS | 50 | degrees | [facility] | | + + + + + + | INTERPRETAT | Normal sinus rhythmRight | | [facility] | | | ION TEXT | bundle branch | | | | | | blockAbnormal ECGNo | | | | | | previous ECGs | | | | | | availableConfirmed by | | | | | | FRANK VAUGHAN MD ([id number]) | | | | | | on 06/14/2016 6:26:53 AM | | | | | | | | | | + + + + + + + + | Specimen | + + | | + + + + + | Narrative | Performed At | + + + | | | + + + + +---------+ + + | Performing | Address | City/State/Zipcode | Phone Number | | Organization | | | | + +---------+ + + | [facility] | | | | + +---------+ + + POC Glucose (06/13/2016 10:10 PM PDT) + +---------+ + + + | Component | Value | Ref Range | Performed | Pathologist | | | | | At | Signature | + +---------+ + + + | Glucose, | 292 (H) | 70 - 150 mg/dL | [facility] | | [facility] | | [facility] | | | | | | [facility]ICAL | | | | | | CENTER - | | | | | | LABORATORY | | + +---------+ + + + + + | Specimen | + + | Blood | + + + + + + + | Performing | Address | City/State/Zipcode | Phone Number | | Organization | | | | + + + + + | [facility] | [address] | [place] | [phone] | | [facility] | | [address] | | | - LABORATORY | | | | + + + + + ECG - EXTERNAL SCAN (06/13/2016 12:00 AM PDT) + + + | Narrative | Performed At | + + + | Ordered by an | | | unspecified provider. | | + + + ECG - EXTERNAL SCAN (06/13/2016 12:00 AM PDT) + + + | Narrative | Performed At | + + + | Ordered by an | | | unspecified provider. 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) - Primary | + + | Morbid obesity with BMI of 40.0-44.9, adult ([facility]) | + + | Unstable angina ([facility]) Intermediate coronary syndrome | + + | Hypertriglyceridemia Pure hyperglyceridemia | + + | Diabetes mellitus ([facility]) Type II or unspecified type diabetes mellitus without mention | | of complication, not stated as uncontrolled | + + | Hyperlipidemia Other and unspecified hyperlipidemia | + + | Obstructive sleep apnea Obstructive sleep apnea (adult) (pediatric) | + + | Essential hypertension Unspecified essential hypertension | + + documented in this encounter Administered Medications + +--------+ +--------+------+------+ | Medication Order | MAR | Action | Dose | Rate | Site | | | Action | Date | | | | + +--------+ +--------+------+------+ | aspirin tablet 325 mg 325 mg, | Given | 06/14/20 | 325 mg | | | | Oral, DAILY, First dose on Sat | | 16 11:32 | | | | | 06/14/16 at 0900 | | AM PDT | | | | + +--------+ +--------+------+------+ +---+---+ | | | +---+---+ + +-------+ +-------+---+---+ | atorvaSTATin (LIPITOR) tablet | Given | 06/13/20 | 80 mg | | | | 80 mg 80 mg, Oral, NIGHTLY, | | 16 10:54 | | | | | First dose on Sat06/13/16 at | | PM PDT | | | | | 2245 | | | | | | + +-------+ +-------+---+---+ +---+---+ | | | +---+---+ + +-------+ +---------+---+---+ | cyanocobalamin (VITAMIN B-12) | Given | 06/14/20 | 500 mcg | | | | tablet 500 mcg 500 mcg, Oral, | | 16 11:31 | | | | | DAILY, First dose on Sat06/14/16 | | AM PDT | | | | | at 0900 | | | | | | + +-------+ +---------+---+---+ +---+---+ | | | +---+---+ + +-------+ +--------+---+---+ | docusate sodium (COLACE) | Given | 06/13/20 | 100 mg | | | | capsule 100 mg 100 mg, Oral, 2 | | 16 10:55 | | | | | TIMES DAILY, First dose on Sat | | PM PDT | | | | | 06/13/16 at 2245, 1st line agent | | | | | | | for constipation relief., | | | | | | + +-------+ +--------+---+---+ +---+---+ | | | +---+---+ + +-------+ + +---+ + | insulin glargine (LANTUS | Given | 06/14/20 | 50 Units | | Arm-Righ | | SOLOSTAR) 100 units/mL injection | | 16 12:42 | | | t Upper | | (pen) 50 Units 50 Units, | | PM PDT | | | | | Subcutaneous, 2 TIMES DAILY, | | | | | | | First dose on Sat06/13/16 at | | | | | | | 2245, For subcutaneous use only. | | | | | | | Basal (long acting) insulin., | | | | | | + +-------+ + +---+ + +-------+ + +---+ + | Given | 06/13/20 | 50 Units | | Arm-Righ | | | 16 10:51 | | | t Upper | | | PM PDT | | | | +-------+ + +---+ + +---+---+ | | | +---+---+ + +-------+ +---------+---+ + | insulin lispro (humaLOG | Given | 06/14/20 | 6 Units | | Arm-Righ | | KWIKPEN) 100 units/mL injection | | 16 11:25 | | | t Upper | | (pen) 0-18 Units 0-18 Units, | | AM PDT | | | | | Subcutaneous, 4 TIMES DAILY WITH | | | | | | | MEALS & NIGHTLY, First dose on | | | | | | | 06/13/16 at 2245, CORRECTION | | | | | | | SCALE: Blood Glucose (BG) < | | | | | | | 150: None BG | | | | | | | 150-200: DAY: 3 units. NIGHT: | | | | | | | 0 units BG 201-250: DAY: 6 | | | | | | | units. NIGHT: 3 units BG | | | | | | | 251-300: DAY: 9 units. NIGHT: | | | | | | | 6 units BG 301-350: DAY: 12 | | | | | | | units. NIGHT: 9 units BG | | | | | | | 351-400: DAY: 15 units. NIGHT: | | | | | | | 12 units BG > 400 : DAY: 18 | | | | | | | units. NIGHT: 15 units | | | | | | | AND CALL PROVIDER | | | | | | | Use DAY DOSE for doses | | | | | | | scheduled: AC, NPO, Daytime | | | | | | | 5458-0498 Use NIGHT DOSE for | | | | | | | doses scheduled: HS, 3AM, | | | | | | | Nighttime 0216-1031, | | | | | | + +-------+ +---------+---+ + +-------+ +---------+---+ + | Given | 06/13/20 | 6 Units | | Arm-Left | | | 16 10:50 | | | Upper | | | PM PDT | | | | +-------+ +---------+---+ + +---+---+ | | | +---+---+ + +-------+ + +---+ + | insulin lispro (humaLOG | Given | 06/14/20 | 10 Units | | Arm-Left | | KWIKPEN) 100 units/mL injection | | 16 6:09 | | | Upper | | (pen) 10 Units 10 Units, | | PM PDT | | | | | Subcutaneous, 3 TIMES DAILY WITH | | | | | | | MEALS, First dose on Bekah 06/14/16 | | | | | | | at 0800 | | | | | | + +-------+ + +---+ + +-------+ + +---+ + | Given | 06/14/20 | 10 Units | | Arm-Left | | | 16 12:40 | | | Upper | | | PM PDT | | | | +-------+ + +---+ + +---+---+ | | | +---+---+ + +-------+ +-------+---+---+ | lisinopril (PRINIVIL,ZESTRIL) | Given | 06/14/20 | 40 mg | | | | tablet 40 mg 40 mg, Oral, DAILY, | | 16 11:32 | | | | | First dose on [facility] 06/14/16 at | | AM PDT | | | | | 0900 | | | | | | + +-------+ +-------+---+---+ +---+---+ | | | +---+---+ + +-------+ +-------+---+---+ | metoprolol tartrate (LOPRESSOR) | Given | 06/14/20 | 25 mg | | | | tablet 25 mg 25 mg, Oral, 2 | | 16 11:32 | | | | | TIMES DAILY, First dose on Sat | | AM PDT | | | | | 06/13/16 at 2245 | | | | | | + +-------+ +-------+---+---+ +-------+ +-------+---+---+ | Given | 06/13/20 | 25 mg | | | | | 16 10:55 | | | | | | PM PDT | | | | +-------+ +-------+---+---+ + +---+ | | | + +---+ | sodium chloride 0.9% (NS) bolus | | | 131 mL 131 mL (1 mL/kg | | | 131 kg), Intravenous, Administer | | | over 1 Hours, RELIEF MAN, Starting | | | Bekah 06/14/16 at 0809, For 1 dose, | | | Begin 1 hour prior to procedure, | | | | | + +---+ | | | + +---+ documented in this encounter
--- OUTSIDE RECORDS SUMMARY | ~2020-05-12 | XMS | Encounter Summary ---
Demographics + + + | Address | [address] | | | [place] [address] | + + + | Home Phone | | + + + | Preferred Language | Unknown | + + + | Marital Status | Legally | + + + | Lutheran Affiliation | 1041 | + + + | Race | or | + + + | Ethnic Group | Not or | + + + Author + + + | Author | [facility] | | | and [place] | + + + | Organization | [facility] | | | and [place] | + + + | Address | Unknown | + + + | Phone | Unavailable | + + + Support + + + + + | Name | Relationship | Address | Phone | + + + + + | Jenniffer Chew | ECON | [address] | | | | | [address] | | | | | [address] | | + + + + + Care Team Providers + +------+ + | Care Stock Preparation Operator Name | Role | Phone | + +------+ + | Kaylan Montaño PA-C | PCP | | + +------+ + Encounter Details +--------+ + + + + | Date | Type | Department | Care Team | Description | +--------+ + + + + | 06/15/ | Hospital | [facility] | Conversion | | | 2016 | Encounter | [facility] | Transaction, | | | | | ECHOCARDIOGRAPHY | Provider Unknown | | | | | [address] | | | | | | [place], [place] | (Fax) | | | | | [address] | | | | | | [phone] | | | +--------+ + + + [...]
--- OUTSIDE RECORDS SUMMARY | ~2020-05-12 | XMS | Encounter Summary ---
Demographics + + + | Address | [address] | | | [place] [address] | + + + | Home Phone | | + + + | Preferred Language | Unknown | + + + | Marital Status | Legally | + + + | Gnosticism Affiliation | 1041 | + + + | Race | or | + + + | Ethnic Group | Not or | + + + Author + + + | Author | [facility] | | | and [place] | + + + | Organization | [facility] | | | and [place] | + + + | Address | Unknown | + + + | Phone | Unavailable | + + + Support + + + + + | Name | Relationship | Address | Phone | + + + + + | Jenniffer Chew | ECON | [address] | | | | | [address] | | | | | [address] | | + + + + + Care Team Providers + +------+ + | Care Software Controls Engineer Name | Role | Phone | + [...] | | | [address] | [facility] | | | | | [place], [place] | [address], [place] | | | | | [address] | [phone] | | | | | [phone] | [phone] | | | | | | | [...] pressures of 5-10mmHg. MEASUREMENTS | | | Implementation Lead: ANDRA Authenticated by: Nito Swanson | | | DO Report Date/Time: -- [id number] | | + + + + + [...] | | venous pressures of 5-10mmHg. MEASUREMENTS Implementation Lead: DHAuthenticated by: | | Nito Quinteros Date/Time: -- [id number] IMPRESSION: 1. See | | Dictation. TDS, [...] | |MEASUREMENTS | | | | | |Implementation Lead: ANDRA | |Authenticated by: Nito Swanson DO | |Report Date/Time: -- [id number] | | | |IMPRESSION: | |1. See [...]
--- OUTSIDE RECORDS SUMMARY | ~2020-05-12 | XMS | Encounter Summary ---
Demographics + + + | Address | [address] | | | [place] [address] | + + + | Home Phone | | + + + | Preferred Language | Unknown | + + + | Marital Status | Legally | + + + | Cheondoism Affiliation | 1041 | + + + | Race | or | + + + | Ethnic Group | Not or | + + + Author + + + | Author | [facility] | | | and [place] | + + + | Organization | [facility] | | | and [place] | + + + | Address | Unknown | + + + | Phone | Unavailable | + + + Support + + + + + | Name | Relationship | Address | Phone | + + + + + | Jenniffer Chew | ECON | [address] | | | | | [address] [place] | | | | | [address] | | + + + + + Care Team Providers + +------+ + | Care Small Products Ii Assembler Name | Role | Phone | + +------+ + | Kaylan Montaño PA-C | PCP | | + +------+ + Encounter Details +--------+ + + + + | Date | Type | Department | Care Team | Description | +--------+ + + + + | 06/14/ | Hospital | [facility] | Kendall Morales MD | Coronary artery | | 2016 - | Encounter | [facility] | [address] | disease involving | | | | CARE FLOOR [address] | [place], [place] | atka coronary | | 06/22/ | | [address] | [address] | artery of atka | | 2016 | | [place], [place] | | heart with unstable | | | | [address] | | angina pectoris | | | | [phone] | | (HCC) | +--------+ + + [...] Summaries by Alena Coto PA-C at 06/21/16 0410 Author: Alena Coto PA-C Service: Cardiac, Thoracic, and Vascular Surgery [place] Type: Physician Bioinformatics Programmer - Certified Filed: 06/22/16 1033 Date of Service: 06/21/16 1308 Status: Attested Cognos Architect: Alena Coto PA-C (Physician Bioinformatics Programmer - Certified) Cosigner: Xavi Alvarez MD at 06/23/16 1009 Attestation signed by Xavi Alvarez MD at 06/23/16 1009 I have examined Tr Caballero, reviewed the notes, assessments, and/or procedures performed by Alena Mike PA-C, I concur with her documentation of Tr Caballero. Service: Cardiothoracic Surgery Discharge Summary Pt: Tr Caballero AGE/SEX: 61 y.o. male ROOM: [address] [place] [address] : 1955 PCP: Kaylan Montaño Date/Time:06/22/2016 10:29 [...] (HCC) Active Problems: CAD (coronary artery disease), [place] coronary artery Resolved Problems: * No resolved [...] of IDDM, HTN, HUNTER who presented to [place] with a 4 day history of anginal symptoms. He was evaluated at [facility] in [place] and was diag nosed with a NSTEMI. [...] 06/21: diuresis x once 06/22: Discharge to [place]; insurance auth covered 7 days. HOSPITAL [...] patient was fit for disch arge to long-term on 06/22/16. Complications during hospital stay: 1) [...] Type 2 diabetes mellitus treated with insulin ([facility]) Essential hypertension HUNTER (obstructive sleep apnea) CAD (coronary artery disease) NSTEMI (non-ST elevation myocardial infarction) ([facility]) Hypercholesteremia Neuropathy Bulging lumbar disc Morbid obesity with BMI of 40.0-44.9, adult (HCC) Past Surgical History Procedure Laterality Date Scrotal surgery Hernia repair Vasectomy Coronary artery bypass graft N/A 06/15/2016 Procedure: CABG - HAY; Surgeon: Kendall Morales MD; Location: [facility]; Service: Car diac; Laterality: N/A; [...] SpO2: [91 %-96 %] 91 % (06/21 415) Weight: [130.8 kg (288 lb 5.8 oz)] [...] TSHNEO PLAN 1. Patient is discharged to [facility] in [place], [place] for 7 days on 06/22/16. 2. Smoking cessation was discussed with patient. Pt says he doesn't smoke and doesn't inten d to start. 3. Patient was instructed to follow up in clinic with Cardiothoracic Surgery, Nevaeh Coto PA-C on 07/10/16 at 11am. 4. Patient was instructed to follow up in clinic with Wharfmaster, Dr. Flores in 2 weeks . i. An Ambulatory referral for the [place] office was given. 5. Patient was instructed to follow up in clinic with Primary Care Physician, Dr. Montaño in 2-4 wks. 6. Patient was given an ambulatory referral for Grain Shoveler/ Sleep study for HUNTER. 7. Education: CABG: The patient is being discharged with instructions on cardiac diet, sternal precau tions x 12 weeks and surgical incision care are according to the Society of Thoracic Surgeon guidelines. The patient is given instructions to start cardiac rehabilitation in accordance with crop consultant recommendations. Pt advised not to drive for 6 weeks post discharge. Patient was discharged with aspirin, atorvastatin, metoprolol and plavix. PLEASE DO NOT STOP TAKING THE BELOW MEDICATION LIST UNTIL OTHERWISE SPECIFIED BY YOUR CA RDIOTHORACIC SURGEON, THE CONTRACT AGENT, OR YOUR PRIMARY CARE PROVIDER. Cardiothoracic Surgery will manage prescriptions until you have seen your Wharfmaster a nd Primary Care Physician, in which they will resume prescription management afterwards. Disposition: long-term Condition: Stable Code Status: Full Code Discharge Instructions Ambulatory referral to Pulmonology Referral Priority: Routine Referral Type: Consultation Referral Reason: Specialty Services Required Requested Specialty: Pulmonary Disease Number of Visits Requested: 1 Ambulatory referral to Cardiology Referral Priority: Routine Referral Type: Consultation Referral Reason: Specialty Services Required Referred to Provider: NANCY FLORES Requested Specialty: Cardiology Number of Visits Requested: 1 Follow up: Kaylan Montaño PA-C [address] [place] [address] Alena Coto PA-C [address] [place] [facility]ly named [facility] [address] Go on 07/10/2016 Appointment at 11am; Post-op, For wound re-check, For suture removal, If symptoms worsen, A s needed Nancy Flores MD [address] [facility] [place] [address] Schedule an appointment as soon as possible [...] (none) Author Type: Registered Nurse Filed: 06/22/16 1026 Date of Service: 06/22/161432 Status: Signed Cognos Architect: Summer R Touchette, RN (Registered Nurse) 06/22/16 3574 Anticipated Discharge Plan Post Acute Care Needs [...] CM will fax AVS to christopher at [facility] . Berta Reed onver paul Transaction, Provider Unknown - 06/22/2016 11:29 AM PDT Progress Notes by Avery Stevenson RRT at 06/22/16 1129 Author: Avery Stevenson RRT Service: -Emergency Author Type: Registered Respiratory Ther apist Filed: 06/22/16 1129 Date of Service: 06/22/161128 Status: Signed Cognos Architect: Avery Stevenson RRT (Registered Respiratory Therapist) [facility] Department of Respiratory Half-Way Oxygen Evaluation (Evaluation is valid for 48 [...] and Vascular Surgery [place] Type: Physician Bioinformatics Programmer - Certified Filed: 06/22/16 104 Date of Service: 06/22/16 104 Status: Attested Cognos Architect: Alena Coto PA-C (Physician Bioinformatics Programmer - Certified) Cosigner: Xavi Alvarez MD at 06/23/16 100 Attestation signed by Xavi Alvarez MD at 06/23/16 100 I have examined Tr Caballero, reviewed the notes, assessments, and/or procedures performed by Alena Mike PA-C, I concur with her documentation of Tr Caballero. Cardiothoracic Surgery Progress Note Pt: Tr Caballero AGE/SEX: 61 y.o. male : 1955 ROOM: [facility] ADMIT DATE: 06/14/2016 Hospital Day: LOS: 8 [...] of IDDM, HTN, HUNTER who presented to [place] with a 4 day history of anginal s ymptoms. He was evaluated at [facility] in [place] and was diagnosed with a NSTEMI. He [...] NC/BiPAP, diuresis, start Plavix 06/22: discharge to [facility] Overnight ASSESSMENT/PLAN: General: Pt sitting up in chair, using IS. Cardiac: HD stable, NSR - Cont' optimized on ASA 325mg, Atrovastatin 80mg daily (takes Crestor 20 @ home), Metopr olol 12.5 mg bid, Lisinopril 5mg daily (home at 40mg) - NSTEMI: Started Plavix (06/20). - Wharfmaster: Referral for Dr. Flores. Respiratory: On RA; [...] be determined today). Disposition: discharge today to [facility] PROBLEM LIST Principal Problem: NSTEMI (non-ST elevation myocardial infarction) ([facility]) Active Problems: CAD (coronary artery disease), [place] coronary artery 1. Acute myocardial infarction. 2. [...] Note by John Freire PT at 06/22/16 0981 Author: John Freire PT Service: (none) Author Type: Physical Therapist Filed: 06/22/16 7228 Date of Service: 06/22/16948 Status: Addendum Cognos Architect: John Freire PT (Physical Therapist) Related Notes: Original Note by John Freire PT (Physical Therapist) filed at 06/22 9133 06/22/1679 PT Last Visit PT Received On 06/22/16 Reason for Treatment Cardiac Requires PT Follow Up Yes Follow up PT Only? No Assistance Required 1 person Junior Art Director Needed No Precautions Cardiac Precautions Sternal Other [...] 1051 Date of Service: 06/22/16727 Status: Signed Cognos Architect: EZ De Anda (Vascular Nurse) 06/22/16 0728 OT Last Visit OT Received On 06/22/16 Reason for Treatment Cardiac Requires OT Follow Up Yes Assistance Required 1 person Junior Art Director Needed No Family/Caregiver Present Yes Precautions Cardiac [...] toward goals Recommendation Recommendation SNF Equipment Recommended Mobility Architect Manager;Sock aid;Sponge long handled Education Completed: Education [...] (none) Author Type: Physical Therapist Filed: 06/21/16 9387 Date of Service: 06/21/161716 Status: Signed Cognos Architect: John Freire PT (Physical Therapist) 06/21/161716 PT Last Visit PT Received On 06/21/16 Reason for Treatment Cardiac Requires PT Follow Up Yes Follow up PT Only? No Assistance Required 1 person Junior Art Director Needed No Precautions Cardiac Precautions Sternal Other [...] Date of Service: 06/21/16 1300 Status: Signed Cognos Architect: Yulissa Mahmood RD (Oxyacetylene Cutter) 06/21/16 1150 Subjective Timepoint Follow up Pt c/o POD 6 s/p CABG x3. Possibilty pt can go home with assist from instead of SNF. P t was in room and willing to receive education. Diet Experience Previous Diet / Nutrition Education / Counseling hospital educator saw pt. Pt reported diab etes [...] Date of Service: 06/21/16 1204 Status: Addendum Cognos Architect: Berta Reed RN (Registered Nurse) Related Notes: Original Note by Berta Reed RN (Registered Nurse) filed at 1215 CM spoke to Christopher from [facility] and she advised that pt has been approved for 7 days SNF. Christopher also advised that she has spoken to [facility] and they can accept pt, this CM will contact regarding transportation. CM will need to fax Christopher a copy of the AVS and med list on d/c. LM with Tyshawn at [facility] [phone]. 06/21/16 1213 Tyshawn from [facility] called back and advised that they can [...] 1148 Date of Service: 06/21/16906 Status: Signed Cognos Architect: John Freire, PT (Physical Therapist) 06/21/16906 PT Last Visit PT Received On 06/21/16 Reason for Treatment Cardiac Requires PT Follow Up Yes Follow up PT Only? No Assistance Required 1 person Junior Art Director Needed No Precautions Cardiac Precautions Sternal Other [...] Patient limited by fatigue Nurse Made Aware STPEHANY Garcia Safety Devices Safety Devices in Place [...] Service: Cardiac, Thoracic, and Vascular Surgery [place] Type: Physician Bioinformatics Programmer - Certified Filed: 06/21/1635 Date of Service: 06/21/16812 Status: Attested Cognos Architect: Alena Coto PA-C (Physician Bioinformatics Programmer - Certified) Cosigner: Xavi Alvarez MD at 06/21/161610 Attestation signed by Xavi Alvarez MD at 06/21/161610 I have examined Tr Caballero, reviewed the notes, assessments, and/or procedures performed by Alena Mike PA-C, I concur with her documentation of Trsavannah Caballero. Cardiothoracic Surgery Progress Note Pt: Tr Caballero AGE/SEX: 61 y.o. male : 1955 ROOM: [facility]4466-1 ADMIT DATE: 06/14/2016 Hospital Day: LOS: 7 [...] of IDDM, HTN, HUNTER who presented to [place] with a 4 day history of anginal s ymptoms. He was evaluated at [facility] in [place] and was diagnosed with a NSTEMI. He [...] 40mg) - NSTEMI: Started Plavix (06/20). - Wharfmaster: Respiratory: On 2L NC, no SOB; desat's [...] Principal Problem: NSTEMI (non-ST elevation myocardial infarction) ([facility]) Active Problems: CAD (coronary artery disease), atka coronary artery 1. Acute myocardial infarction. 2. [...] Notes by Theodore Moreira RN at 06/21/16 9468 Author: Theodore Moreira RN Service: (none) Author Type: Registered Nurse Filed: 06/21/16 0450 Date of Service: 06/21/16 0842 Status: Addendum Cognos Architect: Theodore Moreira RN (Registered Nurse) Related Notes: Original Note by Theodore Moreira RN (Registered Nurse) filed at 06/21/16 0086 At 0400 when getting pt up to [...] Progress Note by GRANT Cifuentes at 06/20/16 1000 Author: GRANT Cifuentes Service: (none) Author Type: Occupational Therapist Filed: 06/20/16 1549 Date of Service: 06/20/16 1540 Status: Signed Cognos Architect: GRANT Cifuentes (Occupational Therapist) 06/20/16 1524 OT Last Visit OT Received On 06/20/16 Requires OT Follow Up Yes Assistance Required 1 person Junior Art Director Needed No Family/Caregiver Present Yes Precautions Cardiac [...] 1519 Date of Service: 06/20/161515 Status: Signed Cognos Architect: Berta Reed RN (Registered Nurse) CM received a message from Brandy at [facility] [employer], she is the CM assigned to pt's case. Per pt's with this insurance do not have SNF care as an op tion she will need to review pt's clinical notes to determine if pt has a need. CM faxed Christopher layton will contact this CM tomorrow. Christopher [phone] onver paul Transaction, Provider Unknown - 06/20/2016 3:01 PM PDT Therapy Progress Note by Fracisco Ying PT at 06/20/16 1501 Author: Fracisco Ying PT Service: (none) Author Type: Physical Therapist Filed: 06/20/16 7264 Date of Service: 06/20/16 1501 Status: Signed Cognos Architect: Fracisco Ying PT (Physical Therapist) 06/20/16 1501 [...] Barriers to Discharge Physical Deficits Impacting Functional [place];Self-care Deficit s Impacting Functional [place];Pain Recommendation Comments pt. continues to progress, SNF [...] 06/20/161424 Date of Service: 06/20/161424 Status: Signed Cognos Architect: LESLIE Lomeli (Massage Therapist) 06/20/16 4929 Massage Therapy Interventions Locations Back;Neck;Shoulder Massage Therapy Technique Effleurage;Petrissage;[place] massage Response to treatment Decreased pain;Increase ROM;Decreased muscle tension onver paul Castro, Provider Unknown - 06/20/2016 7:55 AM PDT Therapy Progress Note by Fracisco Ying, PT at 06/20/16754 Author: Fracisco Ying PT Service: (none) Author Type: Physical Therapist Filed: 06/20/1635 Date of Service: 06/20/16754 Status: Signed Cognos Architect: Fracisco Ying PT (Physical Therapist) 06/20/16754 PT [...] Barriers to Discharge Physical Deficits Impacting Functional [place];Self-care Deficit s Impacting Functional [place];Pain Lila Barron ARNP - 06/20/2016 5:46 AM PDTFormatting of this note might be differ ent from the original. Progress Notes by ASHU Altamirano at 06/20/16545 Author: ASHU Altamirano Service: Cardiac, Thoracic, and Vascular Surgery [place] Type: Advanced Registered Nurse Practitioner Filed: 06/20/16 1435 Date of Service: 06/20/16545 Status: Attested Cognos Architect: ASHU Altamirano (Advanced Registered Nurse Practitioner) Cosigner: Xavi Alvarez MD at 06/21/161611 Attestation signed by Xavi Alvarez MD at 06/21/161611 I have examined Tr Caballero, reviewed the notes, assessments, and/or procedures performed by ASHU Herman, I concur with her documentation of Tr Caballero. - [facility] Cardiothoracic Surgery Progress Note Date/Time:06/20/2016 6:15 AM Provider: ASHU Altamirano Hospital Day: LOS: 6 days Surgery/Procedure: Post-Op Day: 5 Days Post-Op S/P CABG X 3 + Endoscopic Vein [place] (RGSV) Room: [address] [place] [address] (Acute care status) PROBLEM LIST Principal Problem: NSTEMI (non-ST elevation myocardial infarction) (HCC) Active Problems: CAD (coronary artery disease), at[place] coronary artery IDDM HUNTER SUBJECTIVE: Hospital Timeline: [...] 06/19/161651 Date of Service: 06/19/161650 Status: Signed Cognos Architect: Chad Hennessy RN (Registered Nurse) I received [...] Date of Service: 06/19/16 1600 Status: Signed Cognos Architect: Fracisco Ying PT (Physical Therapist) 06/19/16 1600 [...] Barriers to Discharge Physical Deficits Impacting Functional [place];Self-care Deficit s Impacting Functional [place];Pain onver paul Transaction, Provider Unknown - 06/19/2016 9:50 AM PDT Therapy Progress Note by LESLIE Saavedra at 06/19/16949 Author: LESLIE Saavedra Service: (none) Author Type: Massage Therapist Filed: 06/19/16949 Date of Service: 06/19/16949 Status: Signed Cognos Architect: LESLIE Saavedra (Massage Therapist) 06/19/16949 Massage Therapy Interventions Locations Back;Neck;Shoulder Massage Therapy Technique Effleurage;Petrissage;[place] massage Response to treatment Decreased muscle tension onver paul Transaction, Provider Unknown - 06/19/2016 8:14 AM PDT Case Management by CLYDE Erickson at 06/19/16813 Author: CLYDE Erickson Service: (none) Author Type: Instructor Pilot Filed: 06/19/16846 Date of Service: 06/19/16813 Status: Addendum Cognos Architect: CLYDE Erickson (Instructor Pilot) Related Notes: Original Note by CLYDE Erickson (Instructor Pilot) filed at 06/19/16815 Received referral from [facility] to work on d/c plan. Pt confused yesterday, did not know that he had his surgery already. Pt had been planning to go home with his SO, Jenniffer. PT notes jerry bobby recommending SNF. I called SO and left a message requesting a return call. As a back up plan I placed pt on list at [facility] as pt lives in [place]. Awai t return call from SO. Addendum: Spoke with in pt's room. does not want [facility]. She is open to [facility] and [facility]. Made referrals to both. onver paul Transaction, Provider Unknown - 06/19/2016 7:40 AM PDT Therapy Progress Note by Fracisco Ying PT at 06/19/16739 Author: Fracisco Ying PT Service: (none) Author Type: Physical Therapist Filed: 06/19/16904 Date of Service: 06/19/16739 Status: Signed Cognos Architect: Fracisco Ying PT (Physical Therapist) 06/19/16739 PT [...] Barriers to Discharge Physical Deficits Impacting Functional [place];Self-care Deficit s Impacting Functional [place];Pain Recommendation Comments pt. doing better today, but should benefit from SNF to imporve stre ngth, functional mobility and endurance Lila Barron ARNP - 06/19/2016 5:51 AM PDTFormatting of this note might be differ ent from the original. Progress Notes by ASHU Altamirano at 06/19/16 0921 Author: ASHU Altamirano Service: Cardiac, Thoracic, and Vascular Surgery [facility] Type: Advanced Registered Nurse Practitioner Filed: 06/19/16 0921 Date of Service: 06/19/16 0580 Status: Attested Cognos Architect: ASHU Altamirano (Talat Registered Nurse Practitioner) Cosigner: Kendall Morales MD at 06/19/16 1097 Attestation signed by Kendall Morales MD at 06/19/16 8406 Patient was seen, examined, labs, x-rays, treatment plan reviewed. - [facility] Cardiothoracic Surgery Progress Note Date/Time:06/19/2016 5:56 AM Provider: ASHU Altamirano Hospital Day: LOS: 5 days Surgery/Procedure: Post-Op Day: 4 Days Post-Op S/P CABG X 3 + Endoscopic Vein [place] (RGSV) Room: [address] [place] [address] PROBLEM LIST Principal Problem: NSTEMI (non-ST elevation myocardial infarction) ([facility]) Active Problems: CAD (coronary artery disease), [place] coronary artery IDDM HUNTER SUBJECTIVE: Hospital Timeline: [...] improve with continued diuresis as well /RENAL Shields out 06/17, voiding well on [...] by Leeanna Vang RD, CD at 06/18/16 135 Author: Leeanna Vang RD, CD Service: (none) Author Type: Registered Dietitian Filed: 06/18/161644 Date of Service: 06/18/161644 Status: Signed Cognos Architect: Leeanna Vang RD, CD (Registered Dietitian) 06/18/16 1373 Subjective Timepoint Admit (CABG day 3) Pt [...] Estimated Energy Needs Total Energy Estimated Needs 0834-9389 kcal/day Method for Estimating Needs 30-35 kcal/kg [...] Notes by Harish Fiore MD at 06/18/16 6526 Author: Harish Fiore MD Service: Investor Relations Analyst Author Type: Physician Filed: 06/18/16 5977 Date of Service: 06/18/161542 Status: Signed Cognos Architect: Harish Fiore MD (Physician) [facility] Service: Investor Relations Analyst Progress Note Tr Caballero 61 y.o. Hospital Day: LOS: 4 days Post-Op Day: 3 Days Post-Op Consulting Physicians Treatment Team: Admitting Provider: Kendall Moarles MD SUBJECTIVE Patient Summary: 61 y/o man [...] (HCC) Active Problems: CAD (coronary artery disease), [place] coronary artery ASSESSMENT & PLAN -Continue NIPPV as needed and for naps and night sleep. -Pulmonary toilet -Minimize narcotics -Diuresis per CT surgery -Outpatient sleep studies Harish Fiore MD 06/18/2016 3:44 PM onversion Transact ion, Provider Unknown - 06/18/2016 2:42 PM PDTFormatting of this note might be different fr om the original. Therapy Progress Note by Deisy Koch PT at 06/18/16 6785 Author: Deisy [place], PT Service: (none) Author Type: Physical Therapist Filed: 06/18/16 9569 Date of Service: 06/18/16 1442 Status: Signed Cognos Architect: Deisy Koch PT (Physical Therapist) 06/18/16 1442 [...] Barriers to Discharge Physical Deficits Impacting Functional [place];Self-care Deficit s Impacting Functional [place];Cognitive Deficits Impacting Functional [place] Recommendation Comments Pt desires to return home and will still work towards this goal, bu t based on limited activity tolerance today, may benefit from SNF placement prior to returni ng home. onver paul Transaction, Provider Unknown - 06/18/2016 2:28 PM PDT Therapy Progress Note by GRANT Cifuentes at 06/18/16 6617 Author: GRANT Cifuentes Service: (none) Author Type: Occupational Therapist Filed: 06/18/16 5074 Date of Service: 06/18/161427 Status: Signed Cognos Architect: GRANT Cifuentes (Occupational Therapist) 06/18/16 1300 Precautions [...] actually seen, 1350. 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 He was evaluated at [facility] in [place] and as diagnosed with a NSTEMI. He [...] PDT Therapy Progress Note by Charles Tapia [facility] at 06/18/16 1144 Author: LESLIE Saavedra Service: (none) Author Type: Massage Therapist Filed: 06/18/16 1144 Date of Service: 06/18/16 1144 Status: Signed Cognos Architect: LESLIE Saavedra (Massage Therapist) 06/18/16 1144 Massage Therapy Interventions Locations Back;Neck;Shoulder Massage Therapy Technique Effleurage;Petrissage;[place] massage Response to treatment Decreased muscle tension onver paul Transaction, Provider Unknown - 06/18/2016 10:50 AM PDT Therapy Progress Note by Brandy Streeter OTR/L at 06/18/16 1050 Author: Brandy Streeter OTR/Beth Service: (none) Author Type: Occupational Therapist Filed: 06/18/16 1050 Date of Service: 06/18/16 1050 Status: Signed Cognos Architect: CIRO Cifuentes/Beth (Occupational Therapist) 06/18/16 1049 OT [...] (none) Author Type: Physical Therapist Filed: 06/18/16 2335 Date of Service: 06/18/16 1029 Status: Signed Cognos Architect: Deisy Koch PT (Physical Therapist) 06/18/16 1029 [...] pass stance foot Assistive Device Other (Comment) (ARCHITECTURE DRAFTER on w/c) Modalities Other Therapy Ongoing ed [...] Barriers to Discharge Physical Deficits Impacting Functional [place];Self-care Deficit s Impacting Functional [place] Recommendation Comments Pt having intermittent hallucinations/confusion during [...] Author: CLYDE Erickson Service: (none) Author Type: Instructor Pilot Filed: 06/18/16 1030 Date of Service: 06/18/16 1005 Status: Signed Cognos Architect: CLYDE Erickson (Instructor Pilot) Attended morning rounds. Pt had CABG x3. [...] Type: Advanced Registered Nurse Practitioner Filed: 06/18/16 9330 Date of Service: 06/18/16 0550 Status: Attested Cognos Architect: ASHU Altamirano (Advanced Registered Nurse Practitioner) Cosigner: Kendall Morales MD at 06/18/16 1811 Attestation signed by Kendall Morales MD at 06/18/16 1811 Patient was seen, examined, labs, x-rays, treatment plan reviewed. - [facility] Cardiothoracic Surgery Progress Note Date/Time:06/18/2016 5:53 AM Provider: ASHU Altamirano Hospital Day: LOS: 4 days Surgery/Procedure: Post-Op Day: 3 Days Post-Op S/P CABG X 3 + Endoscopic Vein [place] (RGSV) Room: [address] [place] [address] PROBLEM LIST Principal Problem: NSTEMI (non-ST elevation myocardial infarction) ([facility]) Active Problems: CAD (coronary artery disease), atka coronary artery IDDM HUNTER SUBJECTIVE: Hospital Timeline: [...] phenylephrine Stopped (06/17/16 0810) vasopressin Stopped (06/16/16 3940) PRN Medications acetaminophen OR acetaminophen OR acetaminophen, [...] (none) Author Type: Physical Therapist Filed: 06/17/16 3921 Date of Service: 06/17/161701 Status: Signed Cognos Architect: Sofie Matos PT (Physical Therapist) 06/17/161701 PT [...] attempts then ambulated into hallway with W/C ARCHITECTURE DRAFTER. Pt require s extra time with ambulation [...] (Became less oriented after mobilizing ("I'm in [place]")) Comments Some mild confusion this p.m. Per [...] Barriers to Discharge Physical Deficits Impacting Functional [place];Self-care Deficit s Impacting Functional [place] Recommendation Comments Patient requiring MOD to MAX A at this time for most mobility tasks . Son reports "my mom is unemployed right now so she will be around to help 18/03"; pending progress in PT pt may be able to return home with family assist; may also benefit from subac paimiut rehab in SNF setting if appropriate. Jillian, GRANT Langston - 06/17/2016 10:33 AM PDT Therapy Progress Note by GRANT Fernandez at 06/17/16 1033 Author: GRANT Fernandez Service: (none) Author Type: Occupational Therapist Filed: 06/17/16 1039 Date of Service: 06/17/161032 Status: Signed Cognos Architect: Irina M Karina, OTR/L (Occupational Therapist) 06/17/16 [...] 06/17/1634 Date of Service: 06/17/16902 Status: Signed Cognos Architect: Sofie Matos PT (Physical Therapist) 06/17/16 09 [...] stance foot;Wide base Assistive Device Other (Comment) ([facility] on W/C) Modalities Other Therapy Ongoing [...] Service: Cardiac, Thoracic, and Vascular Surgery [place] Type: Advanced Registered Nurse Practitioner Filed: 06/17/1610 Date of Service: 06/17/16646 Status: Attested Cognos Architect: ASHU Altamirano (Advanced Registered Nurse Practitioner) Cosigner: [...] signed by: Abdelrahman Coles M.D. CardioThoracic Surgery [facility] 06/17/2016, 9:52 AM - [facility] Cardiothoracic Surgery Progress Note Date/Time:06/17/2016 6:49 AM Provider: ASHU Altamirano Hospital Day: LOS: 3 days Surgery/Procedure: Post-Op Day: 2 Days Post-Op S/P CABG X 3 + Endoscopic Vein [place] (RGSV) Room: [address] [place] [address] PROBLEM LIST Principal Problem: NSTEMI (non-ST elevation myocardial infarction) (HCC) Active Problems: CAD (coronary artery disease), atka coronary artery IDDM HUNTER SUBJECTIVE: Hospital Timeline: [...] discussed with the attending provider, Dr.S sanford. Lialyelena Bear, ISOBUTYLENE OPERATOR CHIEF 06/17/2016 onversio n Transaction, Provider Unknown - 06/16/2016 11:00 PM PDTFormatting of this note might be di fferent from the original. Nurse Progress Note by Duarte Willett RN at 06/16/162299 Author: Duarte Willett RN Service: (none) Author Type: Registered Nurse Filed: 06/17/166 Date of Service: 06/16/162299 Status: Signed Cognos Architect: Duarte Willett RN (Registered Nurse) Pt with increasing rate requirements of phenlyephrine to maintain SBP and MAP. Call to Ruben Price for assistance in management. See orders. onver paul Transaction, Provider Unknown - 06/16/2016 10:49 PM PDT Nurse Progress Note by Duarte Willett RN at 06/16/162248 Author: Duarte Wileltt RN Service: (none) Author Type: Registered Nurse Filed: 06/16/162249 Date of Service: 06/16/162248 Status: Signed Cognos Architect: Duarte Willett RN (Registered Nurse) EndoTool discontinued per protocol. Sofie Collier PT - 06/16/2016 2:50 PM PDTFormatting of this note might be different from the bert ginal. Therapy Progress Note by Sofie Matos PT at 06/16/16 5994 Author: Sofie Matos PT Service: (none) Author Type: Physical Therapist Filed: 06/16/16 3162 Date of Service: 06/16/161449 Status: Signed Cognos Architect: Sofie Carlo, PT (Physical Therapist) 06/16/16 1450 [...] 10ft with MIN A and W/ C ARCHITECTURE DRAFTER, 2nd person to manage lines. Pt was [...] Date of Service: 06/16/16 1029 Status: Addendum Cognos Architect: Sofie Matos PT (Physical Therapist) Related Notes: [...] several feet to recliner w ith W/C ARCHITECTURE DRAFTER. 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) Leisure Hobbies-yes (Comment) (Gardening) RUE Assessment RUE [...] Barriers to Discharge Cognitive Deficits Impacting Functional [place];Physical Deficit s Impacting Functional [place];Self-care Deficits Impacting Functional [place] Recommendation Comments Pt is POD 1 s/p CABG x 3; will need ongoing mobility assessment as medical status improves to determine appropriate d/c disposition (home assist VS SNF for sub acute rehab) Abdelrahman Prasad MD - 06/16/2016 9:44 AM PDT Progress Notes by Abdelrahman Coles MD at 06/16/16943 Author: Abdelrahman Coles MD Service: Cardiac, Thoracic, and Vascular Surgery Author Type: Physician Filed: 06/16/16 9836 Date of Service: 06/16/16943 Status: Addendum Cognos Architect: Abdelrahman Coles MD (Physician) Related Notes: Original Note by Jacob Price PA-C (Physician Bioinformatics Programmer - Certified) filed at 06/16/16 1018 [facility] Cardiothoracic Surgery Progress Note Date/Time:06/16/2016 9:45 AM Provider: Jacob Price PA-C Hospital Day: LOS: 2 days Surgery/Procedure: Post-Op Day: 1 Day Post-Op S/P CABG X 3 + Endoscopic Vein [place] Room: [address] [place] [address] PROBLEM LIST Principal Problem: NSTEMI (non-ST elevation myocardial infarction) ([facility]) Active Problems: CAD (coronary artery disease), atka coronary artery IDDM HUNTER SUBJECTIVE: Hospital Timeline: [...] 06/16/16551 Date of Service: 06/16/16551 Status: Signed Cognos Architect: Boy Mcgee, DONTE (Registered Respiratory Therapist) Pt extubated to CPAP without difficulty. onver paul Transaction, Provider Unknown - 06/16/2016 4:29 AM PDT Nurse Progress Note by Duarte Willett RN at 06/16/16428 Author: Duarte Willett RN Service: (none) Author Type: Registered Nurse Filed: 06/16/16431 Date of Service: 06/16/16428 Status: Signed Cognos Architect: Duarte Willett RN (Registered Nurse) Pt extubated to CPAP without difficulty. Snoring noted even on CPAP. Current Settings are : 30% Fi02, RR 24, VT 410, 10/10. onver paul Transaction, Provider Unknown - 06/15/2016 10:35 PM PDT Progress Notes by Joey Thomson RPH at 06/15/162234 Author: Joey Thomson RPH Service: (none) Author Type: Pharmacist Filed: 06/15/162234 Date of Service: 06/15/162234 Status: Signed Cognos Architect: Joey Thomson RPH (Pharmacist) Note ccl 85.6ml/min meds reviewed Pharmacy will follow c 2235 onver paul Transaction, Provider Unknown - 06/15/2016 7:46 PM PDT Progress Notes by Manish Jones at 06/15/161945 Author: Manish Jones Service: (none) Author Type: [employer] Winder And Oiler Filed: 06/15/161949 Date of Service: 06/15/161945 Status: Signed Cognos Architect: Manish Jones ([employer] Winder [employer] Oiler) Introductory visit following handoff from outgoing gardener, followed later by on and off p ump reports, delivered when received from CVOR to Jenniffer and dtr Rosario who are actively supported by other family/friends. Volumn of other waiting area visitors in main 10th lobby and famikly room compelled this family to seek another waiting area. I located them in 10th floor corner family room. Informed TELEGRAPH EDITOR of this info to convey to surgeon. Raisa Mayen CC onver paul Transaction, Provider Unknown - 06/15/2016 12:13 PM PDT Case Management by Kiana Russell RN at 06/15/16 1213 Author: Kiana Russell RN Service: (none) Author Type: Registered Nurse Filed: 06/15/165 Date of Service: 06/15/161212 Status: Signed Cognos Architect: Kiana Russell RN (Registered Nurse) 06/15/16 1200 [...] No Prescription Plan Yes Name of Pharmacy [facility] Previous home health equipment No Vascular access device No Anticipated Disposition Facility Type Home Met with pt and spouse jenniffer and discussed discharge planning, Pt is a 61 y.o., male. Pt s tates he lives with spouse. Pt is independent with his ADL's, uses cane frequently. No home O2, no HD, no anticoagulants. Pt is a member of [employer]. Pt states he wants to retu rn home after CABG as he will have 24/ family support. Patient's PCP is:[facility]?? Pt doesn't remember last name for PCP/[place] [facility] brittnee Patient's insurance:[employer] Coverage concerns: no Medication coverage/concerns: no [facility] clinic Community resources utilized / needed: tbd [...] Fernández RD, ANTELMO Service: (none) Author Type: Oxyacetylene Cutter Filed: 06/20/16 1419 Date of Service: 06/20/161410 Status: Signed Cognos Architect: Lidia Fernández RD, CDE (Oxyacetylene Cutter) Consult Orders: 1. Oxyacetylene Cutter Consult [[id number]] ordered by ASHU Altamirano at 6 1030 [...] blood sugars. Lidia Fernández RD, MPH, CDE, Oxyacetylene Cutter 06/20/2016 2:17 PM Med King MD - 06/17/2016 6:39 AM PDT Consults by Med Alfonso MD at 06/17/1639 Author: Med Alfonso MD Service: Investor Relations Analyst Author Type: Physician Filed: 06/17/16 0716 Date of Service: 06/17/16638 Status: Signed Cognos Architect: Med Alfonso MD (Physician) [facility] Service: Investor Relations Analyst Progress Note Tr [facility]ero 61 [facility].o. Hospital [...] S/P CABG X 3 + Endoscopic Vein [place] Extubated - 06/16/16 @0400 Patient Summary Overnight: [...] Type 2 diabetes mellitus treated with insulin ([facility]) Essential hypertension HUNTER (obstructive sleep apnea) CAD (coronary artery disease) NSTEMI (non-ST elevation myocardial infarction) ([facility]) Hypercholesteremia Neuropathy Bulging lumbar disc Morbid obesity with BMI of 40.0-44.9, adult ([facility]) PAST SURGICAL HISTORY: Past Surgical History Procedure [...] Principal Problem: NSTEMI (non-ST elevation myocardial infarction) ([facility]) Active Problems: CAD (coronary artery disease), atka coronary artery Respiratory failure; sleep apnea; drug [...] 06/14/162132 Date of Service: 06/14/162117 Status: Signed Cognos Architect: Kendall Morales MD (Physician) [facility] Service: Cardiothoracic Surgery Initial Consult Note Date of Admission: 06/14/2016 Reason for Consultation: Evaluation for surgical revascularization Requesting Physician: Dr. Ochoa, Cardiology History Obtained From: patient CHIEF COMPLAINT: Angina HISTORY OF PRESENT ILLNESS The patient is a 61 y.o. male with significant past medical history of IDDM, HTN,HUNTER who pr esented in [place] with a 4 day hisitory of anginal symptoms. He was evaluated at [facility] in [place] and was diagnosed with a NSTEMI. He [...] 06/16/16751 Date of Service: 06/15/162036 Status: Signed Cognos Architect: Kendall Morales MD (Physician) TR CABALLERO Date [...] Endoscopic vein harvest. SURGEON Kendall Morales MD DAUB COLOR MIXER BENITO Oneil. ANESTHESIOLOGIST Britton Smith MD ANESTHESIA General endotracheal. INTRAVENOUS FLUIDS 2500 mL. ESTIMATED BLOOD LOSS All recycled. DRAINS 1. A #28 chest tube. 2. A #24 chest tube. INTRAOPERATIVE COMPLICATIONS None. INDICATIONS The patient is a 61-year-old white male with a history of insulin-dependent diabetes [facility] and hypertension who presented in [place] recently with a 4-day history of anginal symp toms. He was sent to [facility] in [place] and he was diagnosed with a non- ST segment elevation IA. He underwent cardiac catheterization yesterday which showed [...] to the ICU in stable condition. P/ P//[id number] KENDALL MORALES MD p Note - Kendall Rivera Jr., MD - 06/15/2016 8:35 PM PDTFormatting of this note might be different from t he original. Brief Op Note by Kendall Morales MD at 06/15/162034 Author: Kendall Morales MD Service: (none) Author Type: Physician Filed: 06/15/162035 Date of Service: 06/15/162034 Status: Signed Cognos Architect: Kendall Morales MD (Physician) [facility] Service: Cardiothoracic Surgery Brief Op Note Pre-operative Diagnosis: AMI/CAD Post-operative Diagnosis: Same Procedure(s): CABGx3/EVH Surgeon: KENDALL MORALES MD Bioinformatics Programmer(s): Mone OLIVER Anesthesia: General endotrachial anesthesia Estimated [...] 06/15/16806 Date of Service: 06/15/16805 Status: Signed Cognos Architect: Phani Lambert RN (Registered Nurse) Patient has [...] | | | Fingerstick | performed at [facility];[address] | | LAB | | | | [address];[place] | | | | | | [address] | | | | + + + [...] | | | Fingerstick | performed at [facility];[address] | | LAB | | | | [address];[place] | | | | | | [address] | | | | + + + [...] EXTERNAL | | | | performed at [facility], [address] | | LAB | | | | [address], | | | | | | [place] [address] | | | | + + + [...] | | | | | [place] [address] | | | | + + + + + + | K | 4.4Comment: Testing | 3.5 - 4.9 | EXTERNAL | | | | performed at [facility], [address] | mmol/L | LAB | | | | [address], | | | | | | [place] [address] | | | | + + + + + + | Cl | 104Comment: Testing | 99 - 109 mmol/L | EXTERNAL | | | | performed at [facility], [address] | | LAB | | | | [address], | | | | | | [place], [place] [address] | | | | + + + + + + | CO2 | 30Comment: Testing | 23 - 32 mmol/L | EXTERNAL | | | | performed at [facility], [address] | | LAB | | | | [address], | | | | | | [place], [place] [address] | | | | + + + + + + | Anion Gap | 10Comment: Testing | 5 - 20 mmol/L | EXTERNAL | | | | performed at [facility], [address] | | LAB | | | | [address], | | | | | | [place] [address] | | | | + + + + + + | Glucose, | 88Comment: Testing | 65 - 99 mg/dL | EXTERNAL | | | Fasting | performed at [facility], [address] | | LAB | | | | [address], | | | | | | [place] [address] | | | | + + + + + + | BUN | 30 (H)Comment: Testing | 8 - 25 mg/dL | EXTERNAL | | | | performed at [facility], [address] | | LAB | | | | [address], | | | | | | [place] [address] | | | | + + + + + + | Creatinine | 0.8Comment: Testing | 0.70 - 1.30 | EXTERNAL | | | | performed at [facility], [address] | mg/dL | LAB | | | | [address], | | | | | | [place] [address] | | | | + + + + + + | BUN/Creatin | 38Comment: Testing | | EXTERNAL | | | ine Ratio | performed at [facility], [address] | | LAB | | | | [address], | | | | | | [place] [address] | | | | + + + + + + | Calcium | 8.9Comment: Testing | 8.5 - 10.5 | EXTERNAL | | | | performed at [facility], [address] | mg/dL | LAB | | | | [address], | | | | | | [place] [address] | | | | + + + [...] W | | | | | | [facility] [address], | | | | | | [place] [address] | | | | + + + [...] | | | Fingerstick | performed at [facility];[address] | | LAB | | | | [address];[place] | | | | | | [address] | | | | + + + [...] | | | Fingerstick | performed at [facility];[address] | | LAB | | | | [address];[place], [place] | | | | | | [address] | | | | + + + [...] | | | Fingerstick | performed at [facility];[address] | | LAB | | | | [address];[place], [place] | | | | | | [address] | | | | + + + [...] | | | Fingerstick | performed at [facility];[address] | | LAB | | | | [address];[place], [place] | | | | | | [address] | | | | + + + [...] | | | Fingerstick | performed at [facility];[address] | | LAB | | | | [address];[place] | | | | | | [address] | | | | + + + [...] | | | | | | [place] [address] | | | | + + + + + + | Non- | 2.70 (L)Comment: Testing | 4.20 - 5.70 | EXTERNAL | | | Red Blood | performed at [facility], [address] | M/uL | LAB | | | Cells | [address], | | | | | Counted | [place] [address] | | | | + + + + + + | Hemoglobin | 8.1 (L)Comment: Testing | 13.2 - 17.0 | EXTERNAL | | | | performed at [facility], [address] | g/dL | LAB | | | | [address], | | | | | | [place] [address] | | | | + + + + + + | Hematocrit, | 24.1 (L)Comment: Testing | 39.0 - 50.0 % | EXTERNAL | | | POC | performed at [facility], [address] | | LAB | | | | [address], | | | | | | [place] [address] | | | | + + + + + + | MCV | 89.0Comment: Testing | 80.0 - 100.0 fl | EXTERNAL | | | | performed at [facility], [address] | | LAB | | | | [address], | | | | | | [place] [address] | | | | + + + + + + | MCH | 30.0Comment: Testing | 27.0 - 34.0 pg | EXTERNAL | | | | performed at [facility], [address] | | LAB | | | | [address], | | | | | | [place] [address] | | | | + + + + + + | MCHC | 33.7Comment: Testing | 32.0 - 35.5 | EXTERNAL | | | | performed at [facility], [address] | g/dL | LAB | | | | [address], | | | | | | [place] [address] | | | | + + + + + + | RDW-CV | 42.0Comment: Testing | 37 - 53 fl | EXTERNAL | | | | performed at [facility], [address] | | LAB | | | | [address], | | | | | | [place] [address] | | | | + + + + + + | Platelet | 249Comment: Testing | 150 - 400 K/uL | EXTERNAL | | | Count | performed at [facility], [address] | | LAB | | | Plasma | [address], | | | | | | [place] [address] | | | | + + + + + + | MPV | 9.4Comment: Testing | fl | EXTERNAL | | | | performed at [facility], [address] | | LAB | | | | [address], | | | | | | [place] [address] | | | | + + + + + + | Differentia | AUTOMATEDComment: | | EXTERNAL | | | l Type | Testing performed at | | LAB | | | | [facility], [address] | | | | | | [place] | | | | | | [address] | | | | + + + + + + | % Segmented | 60.90Comment: Testing | % | EXTERNAL | | | | performed at [facility], [address] | | LAB | | | Neutrophils | [address], | | | | | | [place] [address] | | | | + + + + + + | % | 25.17Comment: Testing | % | EXTERNAL | | | Lymphocytes | performed at [facility], [address] | | LAB | | | | [address], | | | | | | [place] [address] | | | | + + + + + + | % Monocytes | 10.39Comment: Testing | % | EXTERNAL | | | | performed at [facility], [address] | | LAB | | | | [address], | | | | | | [place] [address] | | | | + + + + + + | % | 2.88Comment: Testing | % | EXTERNAL | | | Eosinophils | performed at [facility], [address] | | LAB | | | | [address], | | | | | | [place] [address] | | | | + + + + + + | % Basophils | 0.66Comment: Testing | % | EXTERNAL | | | | performed at [facility], [address] | | LAB | | | | [address], | | | | | | [place] [address] | | | | + + + + + + | Absolute | 5.44Comment: Testing | 1.90 - 7.40 | EXTERNAL | | | Segmented | performed at [facility], [address] | K/uL | LAB | | | Neutrophils | [address], | | | | | | [place] [address] | | | | + + + + + + | Absolute | 2.25Comment: Testing | 1.00 - 3.90 | EXTERNAL | | | Lymphocytes | performed at [facility], [address] | K/uL | LAB | | | | [address], | | | | | | [place] [address] | | | | + + + + + + | Absolute | 0.93 (H)Comment: Testing | 0.00 - 0.80 | EXTERNAL | | | Monocytes | performed at [facility], [address] | K/uL | LAB | | | | [address], | | | | | | [place] [address] | | | | + + + + + + | Absolute | 0.26Comment: Testing | 0.00 - 0.50 | EXTERNAL | | | Eosinophils | performed at [facility], [address] | K/uL | LAB | | | | [address], | | | | | | [place] [address] | | | | + + + + + + | Absolute | 0.06Comment: Testing | 0.00 - 0.10 | EXTERNAL | | | Basophils | performed at [facility], [address] | K/uL | LAB | | | | [address], | | | | | | [place] [address] | | | | + + + [...] EXTERNAL | | | | performed at [facility], [address] | | LAB | | | | [facility], | | | | | | [place] [address] | | | | + + + [...] | | | | | [place] [address] | | | | + + + + + + | K | 4.2Comment: Testing | 3.5 - 4.9 | EXTERNAL | | | | performed at [facility], [address] | mmol/L | LAB | | | | [address], | | | | | | [place] [address] | | | | + + + + + + | Cl | 104Comment: Testing | 99 - 109 mmol/L | EXTERNAL | | | | performed at [facility], [address] | | LAB | | | | [address], | | | | | | [place] [address] | | | | + + + + + + | CO2 | 32Comment: Testing | 23 - 32 mmol/L | EXTERNAL | | | | performed at [facility], [address] | | LAB | | | | [address], | | | | | | [place] [address] | | | | + + + + + + | Anion Gap | 9Comment: Testing | 5 - 20 mmol/L | EXTERNAL | | | | performed at [facility], [address] | | LAB | | | | [address], | | | | | | [place] [address] | | | | + + + + + + | Glucose, | 101 (H)Comment: Testing | 65 - 99 mg/dL | EXTERNAL | | | Fasting | performed at [facility], [address] | | LAB | | | | [address], | | | | | | [place] [address] | | | | + + + + + + | BUN | 38 (H)Comment: Testing | 8 - 25 mg/dL | EXTERNAL | | | | performed at [facility], [address] | | LAB | | | | [address], | | | | | | [place] [address] | | | | + + + + + + | Creatinine | 0.9Comment: Testing | 0.70 - 1.30 | EXTERNAL | | | | performed at [facility], [address] | mg/dL | LAB | | | | [address], | | | | | | [place] [address] | | | | + + + + + + | BUN/Creatin | 42Comment: Testing | | EXTERNAL | | | ine Ratio | performed at [facility], [address] | | LAB | | | | [address], | | | | | | [place] [address] | | | | + + + + + + | Calcium | 8.8Comment: Testing | 8.5 - 10.5 | EXTERNAL | | | | performed at [facility], [address] | mg/dL | LAB | | | | [address], | | | | | | [place] [address] | | | | + + + [...] | | | | | [place] [address] | | | | + + + [...] | | | Fingerstick | performed at [facility];[address] | | LAB | | | | [address];[place] | | | | | | [address] | | | | + + + [...] | | | Fingerstick | performed at [facility];[address] | | LAB | | | | [address];[place] | | | | | | [address] | | | | + + + [...] | | | Fingerstick | performed at [facility];[address] | | LAB | | | | [address];[place] | | | | | | [address] | | | | + + + [...] | | | Fingerstick | performed at [facility] | | LAB | | | | [address];[place], [place] | | | | | | [address] | | | | + + + [...] CHEST 2 VIEW FRONTAL AND | | WIABMKB2506/20/2016 9:35 AM HISTORY:61 years. Male. Tubes/line position, [...] EXTERNAL | | | | performed at [facility], [address] | K/uL | LAB | | | | [address], | | | | | | [place] [address] | | | | + + + + + + | Non- | 2.68 (L)Comment: Testing | 4.20 - 5.70 | EXTERNAL | | | Red Blood | performed at [facility], [address] | M/uL | LAB | | | Cells | [address], | | | | | Counted | [place] [address] | | | | + + + + + + | Hemoglobin | 7.8 (L)Comment: Testing | 13.2 - 17.0 | EXTERNAL | | | | performed at [facility], [address] | g/dL | LAB | | | | [address], | | | | | | [place] [address] | | | | + + + + + + | Hematocrit, | 24.0 (L)Comment: Testing | 39.0 - 50.0 % | EXTERNAL | | | POC | performed at [facility], [address] | | LAB | | | | [address], | | | | | | [place] [address] | | | | + + + + + + | MCV | 89.5Comment: Testing | 80.0 - 100.0 fl | EXTERNAL | | | | performed at [facility], [address] | | LAB | | | | [address], | | | | | | [place] [address] | | | | + + + + + + | MCH | 29.0Comment: Testing | 27.0 - 34.0 pg | EXTERNAL | | | | performed at [facility], [address] | | LAB | | | | [address], | | | | | | [place] [address] | | | | + + + + + + | MCHC | 32.4Comment: Testing | 32.0 - 35.5 | EXTERNAL | | | | performed at [facility], [address] | g/dL | LAB | | | | [address], | | | | | | [place] [address] | | | | + + + + + + | RDW-CV | 42.9Comment: Testing | 37 - 53 fl | EXTERNAL | | | | performed at [facility], [address] | | LAB | | | | [address], | | | | | | [place] [address] | | | | + + + + + + | Platelet | 203Comment: Testing | 150 - 400 K/uL | EXTERNAL | | | Count | performed at [facility], [address] | | LAB | | | Plasma | [address], | | | | | | [place] [address] | | | | + + + + + + | MPV | 9.5Comment: Testing | fl | EXTERNAL | | | | performed at [facility], [address] | | LAB | | | | [address], | | | | | | [place] [address] | | | | + + + + + + | Differentia | AUTOMATEDComment: | | EXTERNAL | | | l Type | Testing performed at | | LAB | | | | [facility], [address] [facility] | | | | | | [place] | | | | | | [address] | | | | + + + + + + | % Segmented | 62.97Comment: Testing | % | EXTERNAL | | | | performed at [facility], [address] | | LAB | | | Neutrophils | [address] [place], | | | | | | [place] [address] | | | | + + + + + + | % | 20.57Comment: Testing | % | EXTERNAL | | | Lymphocytes | performed at [facility], [address] | | LAB | | | | [address], | | | | | | [place] [address] | | | | + + + + + + | % Monocytes | 13.38Comment: Testing | % | EXTERNAL | | | | performed at [facility], [address] | | LAB | | | [address], | | | | | | [place], [place] [address] | | | | + + + + + + | % | 2.61Comment: Testing | % | EXTERNAL | | | Eosinophils | performed at [facility], [address] | | LAB | | | [address], | | | | | | [place] [address] | | | | + + + + + + | % Basophils | 0.47Comment: Testing | % | EXTERNAL | | | | performed at [facility], [address] | | LAB | | | [address], | | | | | | [place] [address] | | | | + + + + + + | Absolute | 4.69Comment: Testing | 1.90 - 7.40 | EXTERNAL | | | Segmented | performed at [facility], [address] | K/uL | LAB | | | Neutrophils | [address], | | | | | | [place] [address] | | | | + + + + + + | Absolute | 1.53Comment: Testing | 1.00 - 3.90 | EXTERNAL | | | Lymphocytes | performed at [facility], [address] | K/uL | LAB | | | | [address], | | | | | | [place] [address] | | | | + + + + + + | Absolute | 1.00 (H)Comment: Testing | 0.00 - 0.80 | EXTERNAL | | | Monocytes | performed at [facility], [address] | K/uL | LAB | | | | [address], | | | | | | [place] [address] | | | | + + + + + + | Absolute | 0.19Comment: Testing | 0.00 - 0.50 | EXTERNAL | | | Eosinophils | performed at [facility], [address] | K/uL | LAB | | | | [address], | | | | | | [place] [address] | | | | + + + + + + | Absolute | 0.04Comment: Testing | 0.00 - 0.10 | EXTERNAL | | | Basophils | performed at [facility], [address] | K/uL | LAB | | | | [address] [place], | | | | | | [place] [address] | | | | + + + [...] EXTERNAL | | | | performed at [facility], [address] | | LAB | | | | [address], | | | | | | [place] [address] | | | | + + + [...] EXTERNAL | | | | performed at [facility], [address] | mmol/L | LAB | | | | [place], | | | | | | [place] [address] | | | | + + + + + + | K | 4.6Comment: Testing | 3.5 - 4.9 | EXTERNAL | | | | performed at [facility], [address] | mmol/L | LAB | | | | [address], | | | | | | [place] [address] | | | | + + + + + + | Cl | 103Comment: Testing | 99 - 109 mmol/L | EXTERNAL | | | | performed at [facility], [address] | | LAB | | | | [address], | | | | | | [place] [address] | | | | + + + + + + | CO2 | 32Comment: Testing | 23 - 32 mmol/L | EXTERNAL | | | | performed at [facility], [address] | | LAB | | | | [address], | | | | | | [place] [address] | | | | + + + + + + | Anion Gap | 9Comment: Testing | 5 - 20 mmol/L | EXTERNAL | | | | performed at [facility], [address] | | LAB | | | | [address], | | | | | | [place] [address] | | | | + + + + + + | Glucose, | 135 (H)Comment: Testing | 65 - 99 mg/dL | EXTERNAL | | | Fasting | performed at [facility], [address] | | LAB | | | | [address], | | | | | | [place] [address] | | | | + + + + + + | BUN | 43 (H)Comment: Testing | 8 - 25 mg/dL | EXTERNAL | | | | performed at [facility], [address] | | LAB | | | | [address], | | | | | | [place] [address] | | | | + + + + + + | Creatinine | 0.9Comment: Testing | 0.70 - 1.30 | EXTERNAL | | | | performed at [facility], [address] | mg/dL | LAB | | | | [address], | | | | | | [place] [address] | | | | + + + + + + | BUN/Creatin | 48Comment: Testing | | EXTERNAL | | | ine Ratio | performed at [facility], [address] | | LAB | | | | [address] [place], | | | | | | [place] [address] | | | | + + + + + + | Calcium | 8.1 (L)Comment: Testing | 8.5 - 10.5 | EXTERNAL | | | | performed at [facility], [address] | mg/dL | LAB | | | | [address], | | | | | | [place] [address] | | | | + + + [...] [address] | | | | | | [address], | | | | | | [place] [address] | | | | + + + [...] | | | Fingerstick | performed at [facility];[address] | | LAB | | | | [address];[place] | | | | | | [address] | | | | + + + [...] | | | Fingerstick | performed at [facility];[address] | | LAB | | | | [address];[place] | | | | | | [address] | | | | + + + [...] | | | Fingerstick | performed at [facility];[address] | | LAB | | | | [address];[place], [place] | | | | | | [address] | | | | + + + [...] EXTERNAL | | | | performed at [facility], [address] | K/uL | LAB | | | | [address] [place], | | | | | | [place] [address] | | | | + + + + + + | Non- | 2.64 (L)Comment: Testing | 4.20 - 5.70 | EXTERNAL | | | Red Blood | performed at [facility], [address] | M/uL | LAB | | | Cells | [address], | | | | | Counted | [place] [address] | | | | + + + + + + | Hemoglobin | 7.7 (L)Comment: Testing | 13.2 - 17.0 | EXTERNAL | | | | performed at [facility], [address] | g/dL | LAB | | | | [address] [place], | | | | | | [place] [address] | | | | + + + + + + | Hematocrit, | 23.6 (L)Comment: Testing | 39.0 - 50.0 % | EXTERNAL | | | POC | performed at [facility], [address] | | LAB | | | | [address], | | | | | | [place] [address] | | | | + + + + + + | MCV | 89.2Comment: Testing | 80.0 - 100.0 fl | EXTERNAL | | | | performed at [facility], [address] | | LAB | | | | [address], | | | | | | [place] [address] | | | | + + + + + + | MCH | 29.0Comment: Testing | 27.0 - 34.0 pg | EXTERNAL | | | | performed at [facility], [address] | | LAB | | | | [address], | | | | | | [place] [address] | | | | + + + + + + | MCHC | 32.5Comment: Testing | 32.0 - 35.5 | EXTERNAL | | | | performed at [facility], [address] | g/dL | LAB | | | | [address], | | | | | | [place] [address] | | | | + + + + + + | RDW-CV | 42.4Comment: Testing | 37 - 53 fl | EXTERNAL | | | | performed at [facility], [address] | | LAB | | | | [address], | | | | | | [place] [address] | | | | + + + + + + | Platelet | 170Comment: Testing | 150 - 400 K/uL | EXTERNAL | | | Count | performed at [facility], [address] | | LAB | | | Plasma | [address], | | | | | | [place] [address] | | | | + + + + + + | MPV | 9.6Comment: Testing | fl | EXTERNAL | | | | performed at [facility], [address] | | LAB | | | | [address], | | | | | | [place] [address] | | | | + + + + + + | Differentia | AUTOMATEDComment: | | EXTERNAL | | | l Type | Testing performed at | | LAB | | | | [facility], [address] | | | | | | [place] | | | | | | [address] | | | | + + + + + + | % Segmented | 69.55Comment: Testing | % | EXTERNAL | | | | performed at [facility], [address] | | LAB | | | Neutrophils | [address], | | | | | | [place] [address] | | | | + + + + + + | % | 17.10Comment: Testing | % | EXTERNAL | | | Lymphocytes | performed at [facility], [address] | | LAB | | | | [address] [place], | | | | | | [place] [address] | | | | + + + + + + | % Monocytes | 10.86Comment: Testing | % | EXTERNAL | | | | performed at [facility], [address] | | LAB | | | | [address], | | | | | | [place] [address] | | | | + + + + + + | % | 2.09Comment: Testing | % | EXTERNAL | | | Eosinophils | performed at [facility], [address] | | LAB | | | | [address], | | | | | | [place] [address] | | | | + + + + + + | % Basophils | 0.40Comment: Testing | % | EXTERNAL | | | | performed at [facility], [address] | | LAB | | | | [address], | | | | | | [place] [address] | | | | + + + + + + | Absolute | 5.45Comment: Testing | 1.90 - 7.40 | EXTERNAL | | | Segmented | performed at [facility], [address] | K/uL | LAB | | | Neutrophils | [address], | | | | | | [place] [address] | | | | + + + + + + | Absolute | 1.34Comment: Testing | 1.00 - 3.90 | EXTERNAL | | | Lymphocytes | performed at [facility], [address] | K/uL | LAB | | | | [address] [place], | | | | | | [place] [address] | | | | + + + + + + | Absolute | 0.85 (H)Comment: Testing | 0.00 - 0.80 | EXTERNAL | | | Monocytes | performed at [facility], [address] | K/uL | LAB | | | | [address], | | | | | | [place] [address] | | | | + + + + + + | Absolute | 0.16Comment: Testing | 0.00 - 0.50 | EXTERNAL | | | Eosinophils | performed at [facility], [address] | K/uL | LAB | | | | [address], | | | | | | [place] [address] | | | | + + + + + + | Absolute | 0.03Comment: Testing | 0.00 - 0.10 | EXTERNAL | | | Basophils | performed at [facility], [address] | K/uL | LAB | | | | [address], | | | | | | [place] [address] | | | | + + + [...] EXTERNAL | | | | performed at [facility], [address] | | LAB | | | | [place] [place], | | | | | | [place] [address] | | | | + + + [...] | | | | | [place] [address] | | | | + + + + + + | K | 5.0 (H)Comment: Testing | 3.5 - 4.9 | EXTERNAL | | | | performed at [facility], [address] | mmol/L | LAB | | | | [address], | | | | | | [place] [address] | | | | + + + + + + | Cl | 104Comment: Testing | 99 - 109 mmol/L | EXTERNAL | | | | performed at [facility], [address] | | LAB | | | | [address], | | | | | | [place] [address] | | | | + + + + + + | CO2 | 29Comment: Testing | 23 - 32 mmol/L | EXTERNAL | | | | performed at [facility], [address] | | LAB | | | | [address], | | | | | | [place] [address] | | | | + + + + + + | Anion Gap | 10Comment: Testing | 5 - 20 mmol/L | EXTERNAL | | | | performed at [facility], [address] | | LAB | | | | [address], | | | | | | [place] [address] | | | | + + + + + + | Glucose, | 175 (H)Comment: Testing | 65 - 99 mg/dL | EXTERNAL | | | Fasting | performed at [facility], [address] | | LAB | | | | [address], | | | | | | [place] [address] | | | | + + + + + + | BUN | 48 (H)Comment: Testing | 8 - 25 mg/dL | EXTERNAL | | | | performed at [facility], [address] | | LAB | | | | [address], | | | | | | [place] [address] | | | | + + + + + + | Creatinine | 0.9Comment: Testing | 0.70 - 1.30 | EXTERNAL | | | | performed at [facility], [address] | mg/dL | LAB | | | | [address], | | | | | | [place] [address] | | | | + + + + + + | BUN/Creatin | 53Comment: Testing | | EXTERNAL | | | ine Ratio | performed at [facility], [address] | | LAB | | | | [address], | | | | | | [place] [address] | | | | + + + + + + | Calcium | 8.7Comment: Testing | 8.5 - 10.5 | EXTERNAL | | | | performed at [facility], [address] | mg/dL | LAB | | | | [address], | | | | | | [place] [address] | | | | + + + [...] | | | | | [place] [address] | | | | + + + [...] | | | Fingerstick | performed at [facility];[address] | | LAB | | | | [address] [place] | | | | | | [address] | | | | + + + [...] | | | Fingerstick | performed at [facility];[address] | | LAB | | | | [address] [place] | | | | | | [address] | | | | + + + [...] | | | Fingerstick | performed at [facility];[address] | | LAB | | | | [address];[place], [place] | | | | | | [address] | | | | + + + [...] | | | Fingerstick | performed at [facility];[address] | | LAB | | | | [address];[place] | | | | | | [address] | | | | + + + [...] | | | Fingerstick | performed at [facility];[address] | | LAB | | | | [address];[place], [place] | | | | | | [address] | | | | + + + [...] EXTERNAL | | | | performed at [facility], [address] | K/uL | LAB | | | | [address] [place], | | | | | | [place] [address] | | | | + + + + + + | Non- | 3.02 (L)Comment: Testing | 4.20 - 5.70 | EXTERNAL | | | Red Blood | performed at [facility], [address] | M/uL | LAB | | | Cells | [address] [place], | | | | | Counted | [place] [address] | | | | + + + + + + | Hemoglobin | 8.9 (L)Comment: Testing | 13.2 - 17.0 | EXTERNAL | | | | performed at [facility], [address] | g/dL | LAB | | | | [address], | | | | | | [place] [address] | | | | + + + + + + | Hematocrit, | 27.2 (L)Comment: Testing | 39.0 - 50.0 % | EXTERNAL | | | POC | performed at [facility], [address] | | LAB | | | | [address], | | | | | | [place] [address] | | | | + + + + + + | MCV | 90.1Comment: Testing | 80.0 - 100.0 fl | EXTERNAL | | | | performed at [facility], [address] | | LAB | | | | [address], | | | | | | [place] [address] | | | | + + + + + + | MCH | 29.4Comment: Testing | 27.0 - 34.0 pg | EXTERNAL | | | | performed at [facility], [address] | | LAB | | | [address], | | | | | | [place] [address] | | | | + + + + + + | MCHC | 32.6Comment: Testing | 32.0 - 35.5 | EXTERNAL | | | | performed at [facility], [address] | g/dL | LAB | | | | [address], | | | | | | [place] [address] | | | | + + + + + + | RDW-CV | 42.0Comment: Testing | 37 - 53 fl | EXTERNAL | | | | performed at [facility], [address] | | LAB | | | | [address], | | | | | | [place] [address] | | | | + + + + + + | Platelet | 140 (L)Comment: Testing | 150 - 400 K/uL | EXTERNAL | | | Count | performed at [facility], [address] | | LAB | | | Plasma | [address], | | | | | | [place] [address] | | | | + + + + + + | MPV | 9.8Comment: Testing | fl | EXTERNAL | | | | performed at [facility], [address] | | LAB | | | | [place] [place], | | | | | | [place] [address] | | | | + + + + + + | Differentia | AUTOMATEDComment: | | EXTERNAL | | | l Type | Testing performed at | | LAB | | | | [facility], [address] | | | | | | [place] | | | | | | [address] | | | | + + + + + + | % Segmented | 74.92Comment: Testing | % | EXTERNAL | | | | performed at [facility], [address] | | LAB | | | Neutrophils | [address], | | | | | | [place] [address] | | | | + + + + + + | % | 12.66Comment: Testing | % | EXTERNAL | | | Lymphocytes | performed at [facility], [address] | | LAB | | | | [address], | | | | | | [place], [place] [address] | | | | + + + + + + | % Monocytes | 10.86Comment: Testing | % | EXTERNAL | | | | performed at [facility], [address] | | LAB | | | | [address], | | | | | | [place], [place] [address] | | | | + + + + + + | % | 1.22Comment: Testing | % | EXTERNAL | | | Eosinophils | performed at [facility], [address] | | LAB | | | | [address], | | | | | | [place] [address] | | | | + + + + + + | % Basophils | 0.34Comment: Testing | % | EXTERNAL | | | | performed at [facility], [address] | | LAB | | | | [address], | | | | | | [place] [address] | | | | + + + + + + | Absolute | 6.27Comment: Testing | 1.90 - 7.40 | EXTERNAL | | | Segmented | performed at [facility], [address] | K/uL | LAB | | | Neutrophils | [address], | | | | | | [place] [address] | | | | + + + + + + | Absolute | 1.06Comment: Testing | 1.00 - 3.90 | EXTERNAL | | | Lymphocytes | performed at [facility], [address] | K/uL | LAB | | | | [address], | | | | | | [place] [address] | | | | + + + + + + | Absolute | 0.91 (H)Comment: Testing | 0.00 - 0.80 | EXTERNAL | | | Monocytes | performed at [facility], [address] | K/uL | LAB | | | | [address], | | | | | | [place] [address] | | | | + + + + + + | Absolute | 0.10Comment: Testing | 0.00 - 0.50 | EXTERNAL | | | Eosinophils | performed at [facility], [address] | K/uL | LAB | | | | [address], | | | | | | [place] [address] | | | | + + + + + + | Absolute | 0.03Comment: Testing | 0.00 - 0.10 | EXTERNAL | | | Basophils | performed at [facility], [address] | K/uL | LAB | | | | [address], | | | | | | [place] [address] | | | | + + + [...] EXTERNAL | | | | performed at [facility], [address] | | LAB | | | | [address], | | | | | | [place] [address] | | | | + + + [...] | | | | | [place] [address] | | | | + + + + + + | K | 5.6 (H)Comment: Testing | 3.5 - 4.9 | EXTERNAL | | | | performed at [facility], [address] | mmol/L | LAB | | | | [address], | | | | | | [place] [address] | | | | + + + + + + | Cl | 104Comment: Testing | 99 - 109 mmol/L | EXTERNAL | | | | performed at [facility], [address] | | LAB | | | | [address], | | | | | | [place] [address] | | | | + + + + + + | CO2 | 29Comment: Testing | 23 - 32 mmol/L | EXTERNAL | | | | performed at [facility], [address] | | LAB | | | | [address], | | | | | | [place] [address] | | | | + + + + + + | Anion Gap | 10Comment: Testing | 5 - 20 mmol/L | EXTERNAL | | | | performed at [facility], [address] | | LAB | | | | [address], | | | | | | [place] [address] | | | | + + + + + + | Glucose, | 156 (H)Comment: Testing | 65 - 99 mg/dL | EXTERNAL | | | Fasting | performed at [facility], [address] | | LAB | | | | [address], | | | | | | [place] [address] | | | | + + + + + + | BUN | 53 (H)Comment: Testing | 8 - 25 mg/dL | EXTERNAL | | | | performed at [facility], [address] | | LAB | | | | [address], | | | | | | [place] [address] | | | | + + + + + + | Creatinine | 1.4 (H)Comment: Testing | 0.70 - 1.30 | EXTERNAL | | | | performed at [facility], [address] | mg/dL | LAB | | | | [address], | | | | | | [place] [address] | | | | + + + + + + | BUN/Creatin | 38Comment: Testing | | EXTERNAL | | | ine Ratio | performed at [facility], [address] | | LAB | | | | [address], | | | | | | [place] [address] | | | | + + + + + + | Calcium | 8.2 (L)Comment: Testing | 8.5 - 10.5 | EXTERNAL | | | | performed at [facility], [address] | mg/dL | LAB | | | | [address], | | | | | | [place] [address] | | | | + + + [...] [address], | | | | | | [place] [address] | | | | + + + [...] | | | Fingerstick | performed at [facility];[address] | | LAB | | | | [address];[place], [place] | | | | | | [address] | | | | + + + [...] | | | Fingerstick | performed at [facility];[address] | | LAB | | | | [address];[place] | | | | | | [address] | | | | + + + [...] | | | Fingerstick | performed at [facility];[address] | | LAB | | | | [address];[place] | | | | | | [address] | | | | + + + [...] | | | | | [place] [address] | | | | + + + + + + | K | 5.2 (H)Comment: Testing | 3.5 - 4.9 | EXTERNAL | | | | performed at [facility], [address] | mmol/L | LAB | | | | [address], | | | | | | [place] [address] | | | | + + + + + + | Cl | 104Comment: Testing | 99 - 109 mmol/L | EXTERNAL | | | | performed at [facility], [address] | | LAB | | | | [address], | | | | | | [place] [address] | | | | + + + + + + | CO2 | 27Comment: Testing | 23 - 32 mmol/L | EXTERNAL | | | | performed at [facility], [address] | | LAB | | | | [address], | | | | | | [place] [address] | | | | + + + + + + | Anion Gap | 12Comment: Testing | 5 - 20 mmol/L | EXTERNAL | | | | performed at [facility], [address] | | LAB | | | | [address] [place], | | | | | | [place] [address] | | | | + + + + + + | Glucose, | 203 (H)Comment: Testing | 65 - 99 mg/dL | EXTERNAL | | | Fasting | performed at [facility], [address] | | LAB | | | | [address], | | | | | | [place] [address] | | | | + + + + + + | BUN | 44 (H)Comment: Testing | 8 - 25 mg/dL | EXTERNAL | | | | performed at [facility], [address] | | LAB | | | | [address], | | | | | | [place] [address] | | | | + + + + + + | Creatinine | 1.6 (H)Comment: Testing | 0.70 - 1.30 | EXTERNAL | | | | performed at [facility], [address] | mg/dL | LAB | | | | [address], | | | | | | [place] [address] | | | | + + + + + + | BUN/Creatin | 28Comment: Testing | | EXTERNAL | | | ine Ratio | performed at [facility], [address] | | LAB | | | [address], | | | | | | [place] [address] | | | | + + + + + + | Calcium | 7.7 (L)Comment: Testing | 8.5 - 10.5 | EXTERNAL | | | | performed at [facility], [address] | mg/dL | LAB | | | | [address], | | | | | | [place] [address] | | | | + + + [...] | | | | | | at [facility], [address] | | | | | | [facility], | | | | | | [place] [address] | | | | + + + + + + + + | Specimen | + + | Blood specimen | | (specimen) | + + + +---------+ + + | Performing | Address | City/State[facility] | Phone Number | | Organization | [...] | | | Fingerstick | performed at [facility];[address] | | LAB | | | | [address];[place] | | | | | | [address] | | | | + + + [...] [place] | | | | | | [address] | | | | + + + + + + | Non- | 2.87 (L)Comment: Testing | 4.20 - 5.70 | EXTERNAL | | | Red Blood | performed at [facility], [address] | M/uL | LAB | | | Cells | [address], | | | | | Counted | [place] [address] | | | | + + + + + + | Hemoglobin | 8.5 (L)Comment: Testing | 13.2 - 17.0 | EXTERNAL | | | | performed at [facility], [address] | g/dL | LAB | | | | [address], | | | | | | [place] [address] | | | | + + + + + + | Hematocrit, | 25.1 (L)Comment: Testing | 39.0 - 50.0 % | EXTERNAL | | | POC | performed at [facility], [address] | | LAB | | | | [address], | | | | | | [place] [address] | | | | + + + + + + | MCV | 87.5Comment: Testing | 80.0 - 100.0 fl | EXTERNAL | | | | performed at [facility], [address] | | LAB | | | | [address], | | | | | | [place] [address] | | | | + + + + + + | MCH | 29.5Comment: Testing | 27.0 - 34.0 pg | EXTERNAL | | | | performed at [facility], [address] | | LAB | | | | [address], | | | | | | [place] [address] | | | | + + + + + + | MCHC | 33.7Comment: Testing | 32.0 - 35.5 | EXTERNAL | | | | performed at [facility], [address] | g/dL | LAB | | | | [address], | | | | | | [place] [address] | | | | + + + + + + | RDW-CV | 42.0Comment: Testing | 37 - 53 fl | EXTERNAL | | | | performed at [facility], [address] | | LAB | | | | [address], | | | | | | [place] [address] | | | | + + + + + + | Platelet | 145 (L)Comment: Testing | 150 - 400 K/uL | EXTERNAL | | | Count | performed at [facility], [address] | | LAB | | | Plasma | [address], | | | | | | [place] [address] | | | | + + + + + + | MPV | 9.5Comment: Testing | fl | EXTERNAL | | | | performed at [facility], [address] | | LAB | | | | [address], | | | | | | [place] [address] | | | | + + + + + + | Differentia | AUTOMATEDComment: | | EXTERNAL | | | l Type | Testing performed at | | LAB | | | | [facility], [address] | | | | | | [place] | | | | | | [address] | | | | + + + + + + | % Segmented | 79.28Comment: Testing | % | EXTERNAL | | | | performed at [facility], [address] | | LAB | | | Neutrophils | [address], | | | | | | [place] [address] | | | | + + + + + + | % | 10.18Comment: Testing | % | EXTERNAL | | | Lymphocytes | performed at [facility], [address] | | LAB | | | | [address], | | | | | | [place] [address] | | | | + + + + + + | % Monocytes | 10.17Comment: Testing | % | EXTERNAL | | | | performed at [facility], [address] | | LAB | | | | [address], | | | | | | [place] [address] | | | | + + + + + + | % | 0.15Comment: Testing | % | EXTERNAL | | | Eosinophils | performed at [facility], [address] | | LAB | | | | [address], | | | | | | [place] [address] | | | | + + + + + + | % Basophils | 0.22Comment: Testing | % | EXTERNAL | | | | performed at [facility], [address] | | LAB | | | | [address], | | | | | | [place] [address] | | | | + + + + + + | Absolute | 11.16 (H)Comment: | 1.90 - 7.40 | EXTERNAL | | | Segmented | Testing performed at | K/uL | LAB | | | Neutrophils | [facility], [address] | | | | | | [place] | | | | | | [address] | | | | + + + + + + | Absolute | 1.43Comment: Testing | 1.00 - 3.90 | EXTERNAL | | | Lymphocytes | performed at [facility], [address] | K/uL | LAB | | | | [address], | | | | | | [place] [address] | | | | + + + + + + | Absolute | 1.43 (H)Comment: Testing | 0.00 - 0.80 | EXTERNAL | | | Monocytes | performed at [facility], [address] | [address] | LAB | | | | [address], | | | | | | [place] [address] | | | | + + + + + + | Absolute | 0.02Comment: Testing | 0.00 - 0.50 | EXTERNAL | | | Eosinophils | performed at [facility], [address] | K/uL | LAB | | | | [address], | | | | | | [place] [address] | | | | + + + + + + | Absolute | 0.03Comment: Testing | 0.00 - 0.10 | EXTERNAL | | | Basophils | performed at [facility], [address] | K/uL | LAB | | | | [address], | | | | | | [place] [address] | | | | + + + [...] EXTERNAL | | | | performed at [facility], [address] | | LAB | | | | [address], | | | | | | [place] [address] | | | | + + + [...] | | | | | [place] [address] | | | | + + + + + + | K | 5.9 (H)Comment: Testing | 3.5 - 4.9 | EXTERNAL | | | | performed at [facility], [address] | mmol/L | LAB | | | | [address], | | | | | | [place] [address] | | | | + + + + + + | Cl | 104Comment: Testing | 99 - 109 mmol/L | EXTERNAL | | | | performed at [facility], [address] | | LAB | | | | [address], | | | | | | [place] [address] | | | | + + + + + + | CO2 | 26Comment: Testing | 23 - 32 mmol/L | EXTERNAL | | | | performed at [facility], [address] | | LAB | | | | [address], | | | | | | [place] [address] | | | | + + + + + + | Anion Gap | 13Comment: Testing | 5 - 20 mmol/L | EXTERNAL | | | | performed at [facility], [address] | | LAB | | | | [address], | | | | | | [place] [address] | | | | + + + + + + | Glucose, | 174 (H)Comment: Testing | 65 - 99 mg/dL | EXTERNAL | | | Fasting | performed at [facility], [address] | | LAB | | | | [address], | | | | | | [place] [address] | | | | + + + + + + | BUN | 41 (H)Comment: Testing | 8 - 25 mg/dL | EXTERNAL | | | | performed at [facility], [address] | | LAB | | | | [address], | | | | | | [place] [address] | | | | + + + + + + | Creatinine | 1.7 (H)Comment: Testing | 0.70 - 1.30 | EXTERNAL | | | | performed at [facility], [address] | mg/dL | LAB | | | | [address], | | | | | | [place] [address] | | | | + + + + + + | BUN/Creatin | 24Comment: Testing | | EXTERNAL | | | ine Ratio | performed at [facility], [address] | | LAB | | | | [address], | | | | | | [place] [address] | | | | + + + + + + | Calcium | 7.6 (L)Comment: Testing | 8.5 - 10.5 | EXTERNAL | | | | performed at [facility], [address] | mg/dL | LAB | | | | [address], | | | | | | [place] [address] | | | | + + + [...] | | | | | [place] [address] | | | | + + + [...] | | | Fingerstick | performed at [facility];[address] | | LAB | | | | [address];[place], [place] | | | | | | [address] | | | | + + + [...] | | | Fingerstick | performed at [facility] | | LAB | | | | [address];[place] | | | | | | [address] | | | | + + + [...] | | | Fingerstick | performed at [facility];[address] | | LAB | | | | [address];[place] | | | | | | [address] | | | | + + + [...] EXTERNAL | | | | performed at [facility];[address] | mmol/L | LAB | | | | [address];[place], [place] | | | | | | [address] | | | | + + + [...] | | | Fingerstick | performed at [facility];[address] | | LAB | | | | [address];[place], [place] | | | | | | [address] | | | | + + + [...] | | | Fingerstick | performed at [facility];[address] | | LAB | | | | [address];[place] | | | | | | [address] | | | | + + + [...] | | | Fingerstick | performed at [facility];[address] | | LAB | | | | [address];[place], [place] | | | | | | [address] | | | | + + + [...] EXTERNAL | | | | performed at [facility];[address] | mmol/L | LAB | | | | [address];[place] | | | | | | [address] | | | | + + + [...] | | | Fingerstick | performed at [facility];[address] | | LAB | | | | [address];[place], [place] | | | | | | [address] | | | | + + + [...] | | | Fingerstick | performed at [facility] | | LAB | | | | [address];[place] | | | | | | [address] | | | | + + + [...] EXTERNAL | | | | performed at [facility];[address] | mmol/L | LAB | | | | [address];[place], [place] | | | | | | [address] | | | | + + + [...] | | | Fingerstick | performed at [facility];[address] | | LAB | | | | [address];[place] | | | | | | [address] | | | | + + + [...] | | | Fingerstick | performed at [facility];[address] | | LAB | | | | [address];[place], [place] | | | | | | [address] | | | | + + + [...] | | | Fingerstick | performed at [facility];[address] | | LAB | | | | [address];[place] | | | | | | [address] | | | | + + + [...] | | | Fingerstick | performed at [facility];[address] | | LAB | | | | [address];[place] | | | | | | [address] | | | | + + + [...] EXTERNAL | | | | performed at [facility];[address] | mmol/L | LAB | | | | [address];[place] | | | | | | [address] | | | | + + + [...] | | | Fingerstick | performed at [facility];[address] | | LAB | | | | [address];[place] | | | | | | [address] | | | | + + + [...] | | | Fingerstick | performed at [facility];[address] | | LAB | | | | [address];[place] | | | | | | [address] | | | | + + + [...] | | | Fingerstick | performed at [facility];[address] | | LAB | | | | [address];[place], [place] | | | | | | [address] | | | | + + + [...] | | | Fingerstick | performed at [facility];[address] | | LAB | | | | [address];[place] | | | | | | [address] | | | | + + + [...] | | | | [facility], [address] [facility] | | | | | | [place] | | | | | | [address] | | | | + + + + + + | Non- | 3.35 (L)Comment: Testing | 4.20 - 5.70 | EXTERNAL | | | Red Blood | performed at [facility], [address] | M/uL | LAB | | | Cells | [address], | | | | | Counted | [place] [address] | | | | + + + + + + | Hemoglobin | 9.8 (L)Comment: Testing | 13.2 - 17.0 | EXTERNAL | | | | performed at [facility], [address] | g/dL | LAB | | | | [address], | | | | | | [place] [address] | | | | + + + + + + | Hematocrit, | 29.4 (L)Comment: Testing | 39.0 - 50.0 % | EXTERNAL | | | POC | performed at [facility], [address] | | LAB | | | | [address], | | | | | | [place] [address] | | | | + + + + + + | MCV | 87.7Comment: Testing | 80.0 - 100.0 fl | EXTERNAL | | | | performed at [facility], [address] | | LAB | | | | [address], | | | | | | [place] [address] | | | | + + + + + + | MCH | 29.3Comment: Testing | 27.0 - 34.0 pg | EXTERNAL | | | | performed at [facility], [address] | | LAB | | | | [address], | | | | | | [place] [address] | | | | + + + + + + | MCHC | 33.4Comment: Testing | 32.0 - 35.5 | EXTERNAL | | | | performed at [facility], [address] | g/dL | LAB | | | | [address], | | | | | | [place] [address] | | | | + + + + + + | RDW-CV | 40.7Comment: Testing | 37 - 53 fl | EXTERNAL | | | | performed at [facility], [address] | | LAB | | | | [address], | | | | | | [place] [address] | | | | + + + + + + | Platelet | 163Comment: Testing | 150 - 400 K/uL | EXTERNAL | | | Count | performed at [facility], [address] | | LAB | | | Plasma | [address], | | | | | | [place] [address] | | | | + + + + + + | MPV | 9.4Comment: Testing | fl | EXTERNAL | | | | performed at [facility], [address] | | LAB | | | | [address], | | | | | | [place] [address] | | | | + + + + + + | Differentia | AUTOMATEDComment: | | EXTERNAL | | | l Type | Testing performed at | | LAB | | | | [facility], [address] | | | | | | [place] | | | | | | [address] | | | | + + + + + + | % Segmented | 84.37Comment: Testing | % | EXTERNAL | | | | performed at [facility], [address] | | LAB | | | Neutrophils | [address], | | | | | | [place] [address] | | | | + + + + + + | % | 6.88Comment: Testing | % | EXTERNAL | | | Lymphocytes | performed at [facility], [address] | | LAB | | | | [address], | | | | | | [place] [address] | | | | + + + + + + | % Monocytes | 8.47Comment: Testing | % | EXTERNAL | | | | performed at [facility], [address] | | LAB | | | | [address], | | | | | | [place] [address] | | | | + + + + + + | % | 0.04Comment: Testing | % | EXTERNAL | | | Eosinophils | performed at [facility], [address] | | LAB | | | | [address], | | | | | | [place] [address] | | | | + + + + + + | % Basophils | 0.24Comment: Testing | % | EXTERNAL | | | | performed at [facility], [address] | | LAB | | | | [address], | | | | | | [place] [address] | | | | + + + + + + | Absolute | 11.00 (H)Comment: | 1.90 - 7.40 | EXTERNAL | | | Segmented | Testing performed at | K/uL | LAB | | | Neutrophils | [facility], [address] | | | | | | [place] | | | | | | [address] | | | | + + + + + + | Absolute | 0.90 (L)Comment: Testing | 1.00 - 3.90 | EXTERNAL | | | Lymphocytes | performed at [facility], [address] | [address] | LAB | | | | [address], | | | | | | [place] [address] | | | | + + + + + + | Absolute | 1.10 (H)Comment: Testing | 0.00 - 0.80 | EXTERNAL | | | Monocytes | performed at [facility], [address] | [address] | LAB | | | | [address], | | | | | | [place] [address] | | | | + + + + + + | Absolute | 0.01Comment: Testing | 0.00 - 0.50 | EXTERNAL | | | Eosinophils | performed at [facility], [address] | K/uL | LAB | | | | [address], | | | | | | [place] [address] | | | | + + + + + + | Absolute | 0.03Comment: Testing | 0.00 - 0.10 | EXTERNAL | | | Basophils | performed at [facility], [address] | K/uL | LAB | | | | [address], | | | | | | [place] [address] | | | | + + + [...] EXTERNAL | | | | performed at [facility], [address] | | LAB | | | | [address], | | | | | | [place] [address] | | | | + + + [...] | EXTERNAL | | | A1c | Cymraes Diabetes | | LAB | | | [...] | | | | | performed at [facility], [address] | | | | | | [address] [facility], | | | | | | [place] [address] | | | | + + + [...] | | | | | performed at [facility], [address] | | | | | | [facility], | | | | | | [place] [address] | | | | + + + [...] | | | | | [place] [address] | | | | + + + + + + | K | 5.7 (H)Comment: Testing | 3.5 - 4.9 | EXTERNAL | | | | performed at [facility], [address] | mmol/L | LAB | | | | [address], | | | | | | [place] [address] | | | | + + + + + + | Cl | 107Comment: Testing | 99 - 109 mmol/L | EXTERNAL | | | | performed at [facility], [address] | | LAB | | | | [address], | | | | | | [place] [address] | | | | + + + + + + | CO2 | 25Comment: Testing | 23 - 32 mmol/L | EXTERNAL | | | | performed at [facility], [address] | | LAB | | | | [address], | | | | | | [place] [address] | | | | + + + + + + | Anion Gap | 15Comment: Testing | 5 - 20 mmol/L | EXTERNAL | | | | performed at [facility], [address] | | LAB | | | | [address], | | | | | | [place], [place] [address] | | | | + + + + + + | Glucose, | 230 (H)Comment: Testing | 65 - 99 mg/dL | EXTERNAL | | | Fasting | performed at [facility], [address] | | LAB | | | | [address], | | | | | | [place], [place] [address] | | | | + + + + + + | BUN | 29 (H)Comment: Testing | 8 - 25 mg/dL | EXTERNAL | | | | performed at [facility], [address] | | LAB | | | | [address], | | | | | | [place] [address] | | | | + + + + + + | Creatinine | 1.1Comment: Testing | 0.70 - 1.30 | EXTERNAL | | | | performed at [facility], [address] | mg/dL | LAB | | | | [address], | | | | | | [place] [address] | | | | + + + + + + | BUN/Creatin | 26Comment: Testing | | EXTERNAL | | | ine Ratio | performed at [facility], [address] | | LAB | | | | [facility], | | | | | | [place] [address] | | | | + + + + + + | Calcium | 7.7 (L)Comment: Testing | 8.5 - 10.5 | EXTERNAL | | | | performed at [facility], [address] | mg/dL | LAB | | | | [address], | | | | | | [place] [address] | | | | + + + [...] | | | | | [place] [address] | | | | + + + [...] | | | Fingerstick | performed at [facility];[address] | | LAB | | | | [address];[place] | | | | | | [address] | | | | + + + [...] | | | Fingerstick | performed at [facility];[address] | | LAB | | | | [address];[place], [place] | | | | | | [address] | | | | + + + [...] EXTERNAL | | | | performed at [facility];[address] | mmol/L | LAB | | | | [address];[place] | | | | | | [address] | | | | + + + [...] | | | Fingerstick | performed at [facility];[address] | | LAB | | | | [address];[place], [place] | | | | | | [address] | | | | + + + [...] | | | Fingerstick | performed at [facility];[address] | | LAB | | | | [address];[place] | | | | | | [address] | | | | + + + [...] | | | Fingerstick | performed at [facility];[address] | | LAB | | | | [address];[place] | | | | | | [address] | | | | + + + [...] | | | Fingerstick | performed at [facility];[address] | | LAB | | | | [address];[place] | | | | | | [address] | | | | + + + [...] + + | Historically converted procedure from [facility] | EXTERNAL LAB | + [...] | | | (Calc) | performed at [facility];[address] | mmol/L | LAB | | | | [address];[place] | | | | | | [address] | | | | + + + + + + | pH, Bld | 7.263 (L)Comment: | 7.300 - 7.450 | EXTERNAL | | | | Testing performed at | | LAB | | | | [facility];[address];[place] [address] | | | | + + + [...] | | | Patient | performed at [facility];[address] | | LAB | | | | [address];[place], [place] | | | | | | [address] | | | | + + + [...] | | | | | performed at [facility];[address] | | | | | | [address];[place] | | | | | | [address] | | | | + + + [...] EXTERNAL | | | | performed at [facility];[address] | | LAB | | | | [address];[place], [place] | | | | | | [address] | | | | + + + [...] K/uL | LAB | | | | [facility];[address];[place] [address] | | | | + + + + + + | Non- | 3.40 (L)Comment: Testing | 4.20 - 5.70 | EXTERNAL | | | Red Blood | performed at [facility];[address] | M/uL | LAB | | | Cells | [address];[place] | | | | | Counted | [address] | | | | + + + + + + | Hemoglobin | 9.8 (L)Comment: Testing | 13.2 - 17.0 | EXTERNAL | | | | performed at [facility];[address] | g/dL | LAB | | | | [address];[place] | | | | | | [address] | | | | + + + + + + | Hematocrit, | 30.1 (L)Comment: Testing | 39.0 - 50.0 % | EXTERNAL | | | POC | performed at [facility];[address] | | LAB | | | | [address];[place] | | | | | | [address] | | | | + + + + + + | MCV | 88.3Comment: Testing | 80.0 - 100.0 fl | EXTERNAL | | | | performed at [facility];[address] | | LAB | | | | [address];[place] | | | | | | [address] | | | | + + + + + + | MCH | 28.9Comment: Testing | 27.0 - 34.0 pg | EXTERNAL | | | | performed at [facility];[address] | | LAB | | | | [address];[place] | | | | | | [address] | | | | + + + + + + | MCHC | 32.7Comment: Testing | 32.0 - 35.5 | EXTERNAL | | | | performed at [facility];[address] | g/dL | LAB | | | | [address];[place] | | | | | | [address] | | | | + + + + + + | RDW-CV | 41.1Comment: Testing | 37 - 53 fl | EXTERNAL | | | | performed at [facility];[address] | | LAB | | | | [address];[place] | | | | | | [address] | | | | + + + + + + | Platelet | 175Comment: Testing | 150 - 400 K/uL | EXTERNAL | | | Count | performed at [facility];[address] | | LAB | | | Plasma | [address];[place] | | | | | | [address] | | | | + + + + + + | MPV | 8.3Comment: Testing | fl | EXTERNAL | | | | performed at [facility];[address] | | LAB | | | | [address];[place] | | | | | | [address] | | | | + + + + + + | Differentia | MANUALComment: Testing | | EXTERNAL | | | l Type | performed at [facility];[address] | | LAB | | | | [address];[place] | | | | | | [address] | | | | + + + + + + | Segmented | 67Comment: Testing | % | EXTERNAL | | | Neutrophils | performed at [facility];[address] | | LAB | | | Manual | [address];[place] | | | | | | [address] | | | | + + + + + + | % Bands | 19Comment: Testing | % | EXTERNAL | | | | performed at [facility];[address] | | LAB | | | | [address];[place] | | | | | | [address] | | | | + + + + + + | Lymphocytes | 12Comment: Testing | % | EXTERNAL | | | Manual | performed at [facility];[address] | | LAB | | | | [address];[place] | | | | | | [address] | | | | + + + + + + | Monocytes | 2Comment: Testing | % | EXTERNAL | | | Manual | performed at [facility];[address] | | LAB | | | | [address];[place] | | | | | | [address] | | | | + + + + + + | Absolute | 12.30 (H)Comment: | 1.90 - 7.40 | EXTERNAL | | | Neutrophils | Testing performed at | K/uL | LAB | | | | [facility];[address];[place] [address] | | | | + + + + + + | Bands | 3.49 (H)Comment: Testing | 0.00 - 0.20 | EXTERNAL | | | Manual | performed at [facility];[address] | K/uL | LAB | | | | [address];[place] | | | | | | [address] | | | | + + + + + + | Absolute | 2.20Comment: Testing | 1.00 - 3.90 | EXTERNAL | | | Lymphocytes | performed at [facility];[address] | K/uL | LAB | | | | [address];[place] | | | | | | [address] | | | | + + + + + + | Absolute | 0.37Comment: Testing | 0.00 - 0.80 | EXTERNAL | | | Monocytes | performed at [facility];[address] | K/uL | LAB | | | | [address];[place] | | | | | | [address] | | | | + + + + + + | RBC | RBC AND PLT MORPHOLOGY | | EXTERNAL | | | Morphology | APPEAR NORMALComment: | | LAB | | | | Testing performed at | | | | | | [facility];[address] | | | | | [address];[place] [address] | | | | + + + [...] EXTERNAL | | | | performed at [facility];[address] | | LAB | | | | [address];[place] | | | | | | [address] | | | | + + + [...] EXTERNAL | | | | performed at [facility];[address] | mmol/L | LAB | | | | [address];[place] | | | | | | [address] | | | | + + + + + + | K | 4.7Comment: Testing | 3.5 - 4.9 | EXTERNAL | | | | performed at [facility];[address] | mmol/L | LAB | | | | [address];[place] | | | | | | [address] | | | | + + + + + + | Cl | 108Comment: Testing | 99 - 109 mmol/L | EXTERNAL | | | | performed at [facility];[address] | | LAB | | | | [address];[place] | | | | | | [address] | | | | + + + + + + | CO2 | 23Comment: Testing | 23 - 32 mmol/L | EXTERNAL | | | | performed at [facility];[address] | | LAB | | | | [address];[place] | | | | | | [address] | | | | + + + + + + | Anion Gap | 13Comment: Testing | 5 - 20 mmol/L | EXTERNAL | | | | performed at [facility];[address] | | LAB | | | | [address];[place] | | | | | | [address] | | | | + + + + + + | Glucose, | 156 (H)Comment: Testing | 65 - 99 mg/dL | EXTERNAL | | | Fasting | performed at [facility];[address] | | LAB | | | | [address];[place] | | | | | | [address] | | | | + + + + + + | BUN | 28 (H)Comment: Testing | 8 - 25 mg/dL | EXTERNAL | | | | performed at [facility];[address] | | LAB | | | | [address];[place] | | | | | | [address] | | | | + + + + + + | Creatinine | 1.2Comment: Testing | 0.70 - 1.30 | EXTERNAL | | | | performed at [facility];[address] | mg/dL | LAB | | | | [address];[place] | | | | | | [address] | | | | + + + + + + | BUN/Creatin | 23Comment: Testing | | EXTERNAL | | | ine Ratio | performed at [facility];[address] | | LAB | | | | [address];[place] | | | | | | [address] | | | | + + + + + + | Calcium | 7.8 (L)Comment: Testing | 8.5 - 10.5 | EXTERNAL | | | | performed at [facility];[address] | mg/dL | LAB | | | | [address];[place] | | | | | | [address] | | | | + + + [...] | | | | | | at [facility];[address] | | | | | | [address];[place] [address] | | | | + + + [...] Normal. | | | Complications: None. MEASUREMENTS Court Messenger: | | | GD Authenticated by: Britton [...] is | | normal.Pleura: Normal.Complications: None. MEASUREMENTS Court Messenger: | | GDAuthenticated by: Britton [place] Date/Time: [...] | |MEASUREMENTS | | | | | |Court Messenger: GD | |Authenticated by: Britton Smith | [...] | | LAB | | | | [facility];[address] [place] [address] | | | | | | Blvd;[place] [address] | | | | + + + + + + | PCO2 ART | 54 (H)Comment: Testing | 35 - 45 mmHg | EXTERNAL | | | | performed at [facility];[address] | | LAB | | | | [address];[place] | | | | | | [address] | | | | + + + + + + | PO2 ART | 153 (H)Comment: Testing | 80 - 105 mmHg | EXTERNAL | | | | performed at [facility];[address] | | LAB | | | | [address];[place] | | | | | | [address] | | | | + + + + + + | Lactate, | 1.8 (H)Comment: Testing | 0.36 - 1.25 | EXTERNAL | | | Arterial | performed at [facility];888 | mmol/L | LAB | | | | [address];[place] | | | | | | [address] | | | | + + + + + + | HCO3 ART | 26Comment: Testing | 22 - 26 mmol/L | EXTERNAL | | | | performed at [facility];[address] | | LAB | | | | [address];[place] | | | | | | [address] | | | | + + + + + + | POC | 27Comment: Testing | 23 - 27 mEq/L | EXTERNAL | | | APPEARANCE | performed at [facility];[address] | | LAB | | | UA | [address];[place] | | | | | | [address] | | | | + + + + + + | Base | 1Comment: Testing | 0.0 - 2.0 | EXTERNAL | | | deficit | performed at [facility];888 | mmol/L | LAB | | | | [address];[place] | | | | | | [address] | | | | + + + + + + | O2 SAT ART | 99 (H)Comment: Testing | 95 - 98 % | EXTERNAL | | | | performed at [facility];[address] | | LAB | | | | [address];[place] | | | | | | [address] | | | | + + + [...] | | LAB | | | | [facility];[address] | | | | [address];[place] [address] | | | | + + + + + + | PCO2 ART | 54 (H)Comment: Testing | 35 - 45 mmHg | EXTERNAL | | | | performed at [facility];[address] | | LAB | | | | [address];[place] | | | | | | [address] | | | | + + + + + + | PO2 ART | 146 (H)Comment: Testing | 80 - 105 mmHg | EXTERNAL | | | | performed at [facility];[address] | | LAB | | | | [address];[place] | | | | | | [address] | | | | + + + + + + | HCO3 ART | 25Comment: Testing | 22 - 26 mmol/L | EXTERNAL | | | | performed at [facility];[address] | | LAB | | | | [address];[place] | | | | | | [address] | | | | + + + + + + | POC | 27Comment: Testing | 23 - 27 mEq/L | EXTERNAL | | | APPEARANCE | performed at [facility];[address] | | LAB | | | UA | [address];[place] | | | | | | [address] | | | | + + + + + + | Base | 1Comment: Testing | 0.0 - 2.0 | EXTERNAL | | | deficit | performed at [facility];888 | mmol/L | LAB | | | | [address];[place] | | | | | | [address] | | | | + + + + + + | O2 SAT ART | 99 (H)Comment: Testing | 95 - 98 % | EXTERNAL | | | | performed at [facility];[address] | | LAB | | | | [address];[place] | | | | | | [address] | | | | + + + + + + | Sodium, POC | 136Comment: Testing | 135 - 145 mEq/L | EXTERNAL | | | | performed at [facility];[address] | | LAB | | | | [address];[place] | | | | | | [address] | | | | + + + + + + | Potassium, | 5.3 (H)Comment: Testing | 3.5 - 5.0 mEq/L | EXTERNAL | | | POC | performed at [facility] [facility];[address] | | LAB | | | | [address];[place] | | | | | | [address] | | | | + + + + + + | Ionized | 1.41 (H)Comment: Testing | 1.12 - 1.32 | EXTERNAL | | | Calcium, | performed at [facility];888 | mmol/L | LAB | | | POC | [address];[place] | | | | | | [address] | | | | + + + + + + | Glucose, | 145 (H)Comment: Testing | 65 - 99 mg/dL | EXTERNAL | | | POC | performed at [facility];888 | | LAB | | | | [address];[place] | | | | | | [address] | | | | + + + + + + | Hematocrit, | 26 (L)Comment: Testing | 40.0 - 50.0 % | EXTERNAL | | | POC | performed at [facility];888 | | LAB | | | | [address];[place] | | | | | | [address] | | | | + + + + + + | Hemoglobin, | 8.8 (L)Comment: Testing | 13.7 - 16.7 | EXTERNAL | | | POC | performed at [facility];888 | g/dL | LAB | | | | [address];[place] | | | | | | [address] | | | | + + + [...] EXTERNAL | | | | performed at [facility];888 | | LAB | | | | [address];[place] | | | | | | [address] | | | | + + + + + + | PCO2 ART | 46 (H)Comment: Testing | 35 - 45 mmHg | EXTERNAL | | | | performed at [facility];888 | | LAB | | | | [address];[place] | | | | | | [address] | | | | + + + + + + | PO2 ART | 289 (H)Comment: Testing | 80 - 105 mmHg | EXTERNAL | | | | performed at [facility];888 | | LAB | | | | [address];[place] | | | | | | [address] | | | | + + + + + + | HCO3 ART | 27 (H)Comment: Testing | 22 - 26 mmol/L | EXTERNAL | | | | performed at [facility];888 | | LAB | | | | [address];[place] | | | | | | [address] | | | | + + + + + + | POC | 28 (H)Comment: Testing | 23 - 27 mEq/L | EXTERNAL | | | APPEARANCE | performed at [facility];888 | | LAB | | | UA | [address];[place] | | | | | | [address] | | | | + + + + + + | Base | 2Comment: Testing | 0 - 3 mEq/L | EXTERNAL | | | Excess, | performed at [facility];888 | | LAB | | | Arterial | [address];[place] | | | | | | [address] | | | | + + + + + + | O2 SAT ART | 100 (H)Comment: Testing | 95 - 98 % | EXTERNAL | | | | performed at [facility];888 | | LAB | | | | [address];[place] | | | | | | [address] | | | | + + + + + + | Sodium, POC | 134 (L)Comment: Testing | 135 - 145 mEq/L | EXTERNAL | | | | performed at [facility];888 | | LAB | | | | [address];[place] | | | | | | [address] | | | | + + + + + + | Potassium, | 6.5 (HH)Comment: Testing | 3.5 - 5.0 mEq/L | EXTERNAL | | | POC | performed at [facility];888 | | LAB | | | | [address];[place] | | | | | | [address] | | | | + + + + + + | Ionized | 1.04 (L)Comment: Testing | 1.12 - 1.32 | EXTERNAL | | | Calcium, | performed at [facility];888 | mmol/L | LAB | | | POC | [address];[place] | | | | | | [address] | | | | + + + + + + | Glucose, | 152 (H)Comment: Testing | 65 - 99 mg/dL | EXTERNAL | | | POC | performed at [facility];888 | | LAB | | | | [address];[place] | | | | | | [address] | | | | + + + + + + | Hematocrit, | 26 (L)Comment: Testing | 40.0 - 50.0 % | EXTERNAL | | | POC | performed at [facility];888 | | LAB | | | | [address];[place] | | | | | | [address] | | | | + + + + + + | Hemoglobin, | 8.8 (L)Comment: Testing | 13.7 - 16.7 | EXTERNAL | | | POC | performed at [facility];888 | g/dL | LAB | | | | [address];[place] | | | | | | [address] | | | | + + + [...] EXTERNAL | | | | performed at [facility];888 | | LAB | | | | [address];[place] | | | | | | [address] | | | | + + + + + + | PCO2 ART | 48 (H)Comment: Testing | 35 - 45 mmHg | EXTERNAL | | | | performed at [facility];888 | | LAB | | | | [address];[place] | | | | | | [address] | | | | + + + + + + | PO2 ART | 261 (H)Comment: Testing | 80 - 105 mmHg | EXTERNAL | | | | performed at [facility];888 | | LAB | | | | [address];[place] | | | | | | [address] | | | | + + + + + + | HCO3 ART | 29 (H)Comment: Testing | 22 - 26 mmol/L | EXTERNAL | | | | performed at [facility];888 | | LAB | | | | [address];[place] | | | | | | [address] | | | | + + + + + + | POC | 30 (H)Comment: Testing | 23 - 27 mEq/L | EXTERNAL | | | APPEARANCE | performed at [facility];888 | | LAB | | | UA | [address];[place] | | | | | | [address] | | | | + + + + + + | Base | 4 (H)Comment: Testing | 0 - 3 mEq/L | EXTERNAL | | | Excess, | performed at [facility];888 | | LAB | | | Arterial | [address];[place] | | | | | | [address] | | | | + + + + + + | O2 SAT ART | 100 (H)Comment: Testing | 95 - 98 % | EXTERNAL | | | | performed at [facility];888 | | LAB | | | | [address];[place] | | | | | | [address] | | | | + + + + + + | Sodium, POC | 134 (L)Comment: Testing | 135 - 145 mEq/L | EXTERNAL | | | | performed at [facility];888 | | LAB | | | | [address];[place] | | | | | | [address] | | | | + + + + + + | Potassium, | 6.5 (HH)Comment: Testing | 3.5 - 5.0 mEq/L | EXTERNAL | | | POC | performed at [facility];888 | | LAB | | | | [address];[place] | | | | | | [address] | | | | + + + + + + | Ionized | 1.04 (L)Comment: Testing | 1.12 - 1.32 | EXTERNAL | | | Calcium, | performed at [facility];888 | mmol/L | LAB | | | POC | [address];[place] | | | | | | [address] | | | | + + + + + + | Glucose, | 145 (H)Comment: Testing | 65 - 99 mg/dL | EXTERNAL | | | POC | performed at [facility];888 | | LAB | | | | [address];[place] | | | | | | [address] | | | | + + + + + + | Hematocrit, | 27 (L)Comment: Testing | 40.0 - 50.0 % | EXTERNAL | | | POC | performed at [facility];888 | | LAB | | | | [address];[place] | | | | | | [address] | | | | + + + + + + | Hemoglobin, | 9.2 (L)Comment: Testing | 13.7 - 16.7 | EXTERNAL | | | POC | performed at [facility];888 | g/dL | LAB | | | | [address];[place] | | | | | | [address] | | | | + + + [...] EXTERNAL | | | | performed at [facility] | | LAB | | | | [address];[place] | | | | | | [address] | | | | + + + + + + | PCO2 ART | 49 (H)Comment: Testing | 35 - 45 mmHg | EXTERNAL | | | | performed at [facility];888 | | LAB | | | | [address];[place] | | | | | | [address] | | | | + + + + + + | PO2 ART | 263 (H)Comment: Testing | 80 - 105 mmHg | EXTERNAL | | | | performed at [facility];888 | | LAB | | | | [address];[place] | | | | | | [address] | | | | + + + + + + | HCO3 ART | 29 (H)Comment: Testing | 22 - 26 mmol/L | EXTERNAL | | | | performed at [facility];888 | | LAB | | | | [address];[place] | | | | | | [address] | | | | + + + + + + | POC | 30 (H)Comment: Testing | 23 - 27 mEq/L | EXTERNAL | | | APPEARANCE | performed at [facility];888 | | LAB | | | UA | [address];[place] | | | | | | [address] | | | | + + + + + + | Base | 4 (H)Comment: Testing | 0 - 3 mEq/L | EXTERNAL | | | Excess, | performed at [facility];888 | | LAB | | | Arterial | [address];[place] | | | | | | [address] | | | | + + + + + + | O2 SAT ART | 100 (H)Comment: Testing | 95 - 98 % | EXTERNAL | | | | performed at [facility];888 | | LAB | | | | [address];[place] | | | | | | [address] | | | | + + + + + + | Sodium, POC | 134 (L)Comment: Testing | 135 - 145 mEq/L | EXTERNAL | | | | performed at [facility];888 | | LAB | | | | [address];[place] | | | | | | [address] | | | | + + + + + + | Potassium, | 6.8 (HH)Comment: Testing | 3.5 - 5.0 mEq/L | EXTERNAL | | | POC | performed at [facility];888 | | LAB | | | | [address];[place] | | | | | | [address] | | | | + + + + + + | Ionized | 1.06 (L)Comment: Testing | 1.12 - 1.32 | EXTERNAL | | | Calcium, | performed at [facility];888 | mmol/L | LAB | | | POC | [address];[place] | | | | | | [address] | | | | + + + + + + | Glucose, | 146 (H)Comment: Testing | 65 - 99 mg/dL | EXTERNAL | | | POC | performed at [facility];888 | | LAB | | | | [address];[place] | | | | | | [address] | | | | + + + + + + | Hematocrit, | 28 (L)Comment: Testing | 40.0 - 50.0 % | EXTERNAL | | | POC | performed at [facility];888 | | LAB | | | | [address];[place] | | | | | | [address] | | | | + + + + + + | Hemoglobin, | 9.5 (L)Comment: Testing | 13.7 - 16.7 | EXTERNAL | | | POC | performed at [facility];888 | g/dL | LAB | | | | [address];[place] | | | | | | [address] | | | | + + + [...] | | LAB | | | | [facility];[address];[place] [address] | | | | + + + + + + | PCO2 ART | 57 (H)Comment: Testing | 35 - 45 mmHg | EXTERNAL | | | | performed at [facility];888 | | LAB | | | | [address];[place] | | | | | | [address] | | | | + + + + + + | PO2 ART | 232 (H)Comment: Testing | 80 - 105 mmHg | EXTERNAL | | | | performed at [facility];888 | | LAB | | | | [address];[place] | | | | | | [address] | | | | + + + + + + | HCO3 ART | 28 (H)Comment: Testing | 22 - 26 mmol/L | EXTERNAL | | | | performed at [facility];888 | | LAB | | | | [address];[place] | | | | | | [address] | | | | + + + + + + | POC | 30 (H)Comment: Testing | 23 - 27 mEq/L | EXTERNAL | | | APPEARANCE | performed at [facility];888 | | LAB | | | UA | [address];[place] | | | | | | [address] | | | | + + + + + + | Base | 2Comment: Testing | 0 - 3 mEq/L | EXTERNAL | | | Excess, | performed at [facility];888 | | LAB | | | Arterial | [address];[place] | | | | | | [address] | | | | + + + + + + | O2 SAT ART | 100 (H)Comment: Testing | 95 - 98 % | EXTERNAL | | | | performed at [facility];888 | | LAB | | | | [address];[place] | | | | | | [address] | | | | + + + + + + | Sodium, POC | 136Comment: Testing | 135 - 145 mEq/L | EXTERNAL | | | | performed at [facility];888 | | LAB | | | | [address];[place] | | | | | | [address] | | | | + + + + + + | Potassium, | 4.5Comment: Testing | 3.5 - 5.0 mEq/L | EXTERNAL | | | POC | performed at [facility];888 | | LAB | | | | [address];[place] | | | | | | [address] | | | | + + + + + + | Ionized | 1.15Comment: Testing | 1.12 - 1.32 | EXTERNAL | | | Calcium, | performed at [facility];888 | mmol/L | LAB | | | POC | [address];[place] | | | | | | [address] | | | | + + + + + + | Glucose, | 140 (H)Comment: Testing | 65 - 99 mg/dL | EXTERNAL | | | POC | performed at [facility];888 | | LAB | | | | [address];[place] | | | | | | [address] | | | | + + + + + + | Hematocrit, | 35 (L)Comment: Testing | 40.0 - 50.0 % | EXTERNAL | | | POC | performed at [facility];888 | | LAB | | | | [address];[place] | | | | | | [address] | | | | + + + + + + | Hemoglobin, | 11.9 (L)Comment: Testing | 13.7 - 16.7 | EXTERNAL | | | POC | performed at [facility];888 | g/dL | LAB | | | | [address];[place] | | | | | | [address] | | | | + + + [...] EXTERNAL | | | | performed at [facility];888 | | LAB | | | | [address];[place] | | | | | | [address] | | | | + + + + + + | PCO2 ART | 51 (H)Comment: Testing | 35 - 45 mmHg | EXTERNAL | | | | performed at [facility];888 | | LAB | | | | [address];[place] | | | | | | [address] | | | | + + + + + + | PO2 ART | 276 (H)Comment: Testing | 80 - 105 mmHg | EXTERNAL | | | | performed at [facility];888 | | LAB | | | | [address];[place] | | | | | | [address] | | | | + + + + + + | Lactate, | 0.6Comment: Testing | 0.36 - 1.25 | EXTERNAL | | | Arterial | performed at [facility];888 | mmol/L | LAB | | | | [address];[place] | | | | | | [address] | | | | + + + + + + | HCO3 ART | 29 (H)Comment: Testing | 22 - 26 mmol/L | EXTERNAL | | | | performed at [facility];888 | | LAB | | | | [address];[place] | | | | | | [address] | | | | + + + + + + | POC | 30 (H)Comment: Testing | 23 - 27 mEq/L | EXTERNAL | | | APPEARANCE | performed at [facility];888 | | LAB | | | UA | [address];[place] | | | | | | [address] | | | | + + + + + + | Base | 3Comment: Testing | 0 - 3 mEq/L | EXTERNAL | | | Excess, | performed at [facility];888 | | LAB | | | Arterial | [address];[place] | | | | | | [address] | | | | + + + + + + | O2 SAT ART | 100 (H)Comment: Testing | 95 - 98 % | EXTERNAL | | | | performed at [facility];888 | | LAB | | | | [address];[place] | | | | | | [address] | | | | + + + [...] EXTERNAL | | | | performed at [facility];8 | | LAB | | | | [address];[place], [place] | | | | | | [address] | | | | + + + + + + | PCO2 ART | 50 (H)Comment: Testing | 35 - 45 mmHg | EXTERNAL | | | | performed at [facility];888 | | LAB | | | | [address];[place] | | | | | | [address] | | | | + + + + + + | PO2 ART | 274 (H)Comment: Testing | 80 - 105 mmHg | EXTERNAL | | | | performed at [facility];888 | | LAB | | | | [address];[place] | | | | | | [address] | | | | + + + + + + | HCO3 ART | 28 (H)Comment: Testing | 22 - 26 mmol/L | EXTERNAL | | | | performed at [facility];888 | | LAB | | | | [address];[place] | | | | | | [address] | | | | + + + + + + | POC | 29 (H)Comment: Testing | 23 - 27 mEq/L | EXTERNAL | | | APPEARANCE | performed at [facility];888 | | LAB | | | UA | [address];[place] | | | | | | [address] | | | | + + + + + + | Base | 2Comment: Testing | 0 - 3 mEq/L | EXTERNAL | | | Excess, | performed at [facility];888 | | LAB | | | Arterial | [address];[place] | | | | | | [address] | | | | + + + + + + | O2 SAT ART | 100 (H)Comment: Testing | 95 - 98 % | EXTERNAL | | | | performed at [facility];888 | | LAB | | | | [address];[place] | | | | | | [address] | | | | + + + + + + | Sodium, POC | 136Comment: Testing | 135 - 145 mEq/L | EXTERNAL | | | | performed at [facility];888 | | LAB | | | | [address];[place] | | | | | | [address] | | | | + + + + + + | Potassium, | 4.6Comment: Testing | 3.5 - 5.0 mEq/L | EXTERNAL | | | POC | performed at [facility];888 | | LAB | | | | [address];[place] | | | | | | [address] | | | | + + + + + + | Ionized | 1.14Comment: Testing | 1.12 - 1.32 | EXTERNAL | | | Calcium, | performed at [facility];888 | mmol/L | LAB | | | POC | [address];[place] | | | | | | [address] | | | | + + + + + + | Glucose, | 102 (H)Comment: Testing | 65 - 99 mg/dL | EXTERNAL | | | POC | performed at [facility];888 | | LAB | | | | [address];[place] | | | | | | [address] | | | | + + + + + + | Hematocrit, | 35 (L)Comment: Testing | 40.0 - 50.0 % | EXTERNAL | | | POC | performed at [facility];888 | | LAB | | | | [address];[place] | | | | | | [address] | | | | + + + + + + | Hemoglobin, | 11.9 (L)Comment: Testing | 13.7 - 16.7 | EXTERNAL | | | POC | performed at [facility];888 | g/dL | LAB | | | | [address];[place] | | | | | | [address] | | | | + + + [...] | | | Fingerstick | performed at [facility];888 | | LAB | | | | [address];[place] | | | | | | [address] | | | | + + + [...] EXTERNAL | | | | performed at [facility];888 | K/uL | LAB | | | | [address];[place] | | | | | | [address] | | | | + + + + + + | Non- | 4.49Comment: Testing | 4.20 - 5.70 | EXTERNAL | | | Red Blood | performed at [facility];888 | M/uL | LAB | | | Cells | [address];[place] | | | | | Counted | [address] | | | | + + + + + + | Hemoglobin | 12.9 (L)Comment: Testing | 13.2 - 17.0 | EXTERNAL | | | | performed at [facility];888 | g/dL | LAB | | | | [address];[place] | | | | | | [address] | | | | + + + + + + | Hematocrit, | 39.0Comment: Testing | 39.0 - 50.0 % | EXTERNAL | | | POC | performed at [facility];888 | | LAB | | | | [address];[place] | | | | | | [address] | | | | + + + + + + | MCV | 87.0Comment: Testing | 80.0 - 100.0 fl | EXTERNAL | | | | performed at [facility];888 | | LAB | | | | [address];[place] | | | | | | [address] | | | | + + + + + + | MCH | 28.7Comment: Testing | 27.0 - 34.0 pg | EXTERNAL | | | | performed at [facility];888 | | LAB | | | | [address];[place] | | | | | | [address] | | | | + + + + + + | MCHC | 33.0Comment: Testing | 32.0 - 35.5 | EXTERNAL | | | | performed at [facility];888 | g/dL | LAB | | | | [address];[place] | | | | | | [address] | | | | + + + + + + | RDW-CV | 40.7Comment: Testing | 37 - 53 fl | EXTERNAL | | | | performed at [facility];888 | | LAB | | | | [address];[place] | | | | | | [address] | | | | + + + + + + | Platelet | 206Comment: Testing | 150 - 400 K/uL | EXTERNAL | | | Count | performed at [facility];888 | | LAB | | | Plasma | [address];[place] | | | | | | [address] | | | | + + + + + + | MPV | 9.0Comment: Testing | fl | EXTERNAL | | | | performed at [facility];888 | | LAB | | | | [address];[place] | | | | | | [address] | | | | + + + + + + | Differentia | AUTOMATEDComment: | | EXTERNAL | | | l Type | Testing performed at | | LAB | | | | [facility];[address];[place] [address] | | | | + + + + + + | % Segmented | 65.29Comment: Testing | % | EXTERNAL | | | | performed at [facility];888 | | LAB | | | Neutrophils | [address];[place] | | | | | | [address] | | | | + + + + + + | % | 21.11Comment: Testing | % | EXTERNAL | | | Lymphocytes | performed at [facility];888 | | LAB | | | | [address];[place] | | | | | | [address] | | | | + + + + + + | % Monocytes | 8.10Comment: Testing | % | EXTERNAL | | | | performed at [facility];888 | | LAB | | | | [address];[place] | | | | | | [address] | | | | + + + + + + | % | 5.00Comment: Testing | % | EXTERNAL | | | Eosinophils | performed at [facility];888 | | LAB | | | | [address];[place] | | | | | | [address] | | | | + + + + + + | % Basophils | 0.50Comment: Testing | % | EXTERNAL | | | | performed at [facility];888 | | LAB | | | | [address];[place] | | | | | | [address] | | | | + + + + + + | Absolute | 6.33Comment: Testing | 1.90 - 7.40 | EXTERNAL | | | Segmented | performed at [facility];888 | K/uL | LAB | | | Neutrophils | [address];[place] | | | | | | [address] | | | | + + + + + + | Absolute | 2.05Comment: Testing | 1.00 - 3.90 | EXTERNAL | | | Lymphocytes | performed at [facility];888 | K/uL | LAB | | | | [address];[place] | | | | | | [address] | | | | + + + + + + | Absolute | 0.78Comment: Testing | 0.00 - 0.80 | EXTERNAL | | | Monocytes | performed at [facility];888 | K/uL | LAB | | | | [address];[place] | | | | | | [address] | | | | + + + + + + | Absolute | 0.49Comment: Testing | 0.00 - 0.50 | EXTERNAL | | | Eosinophils | performed at [facility];888 | K/uL | LAB | | | | [address];[place] | | | | | | [address] | | | | + + + + + + | Absolute | 0.05Comment: Testing | 0.00 - 0.10 | EXTERNAL | | | Basophils | performed at [facility];888 | K/uL | LAB | | | | [address];[place] | | | | | | [address] | | | | + + + [...] EXTERNAL | | | | performed at [facility];888 | | LAB | | | | [address];[place], [place] | | | | | | [address] | | | | + + + [...] EXTERNAL | | | | performed at [facility];888 | mmol/L | LAB | | | | [address];[place] | | | | | | [address] | | | | + + + + + + | K | 4.5Comment: Testing | 3.5 - 4.9 | EXTERNAL | | | | performed at [facility];888 | mmol/L | LAB | | | | [address];[place] | | | | | | [address] | | | | + + + + + + | Cl | 100Comment: Testing | 99 - 109 mmol/L | EXTERNAL | | | | performed at [facility];[address] | | LAB | | | | [address];[place] | | | | | | [address] | | | | + + + + + + | CO2 | 31Comment: Testing | 23 - 32 mmol/L | EXTERNAL | | | | performed at [facility];[address] | | LAB | | | | [address];[place] | | | | | | [address] | | | | + + + + + + | Anion Gap | 10Comment: Testing | 5 - 20 mmol/L | EXTERNAL | | | | performed at [facility];[address] | | LAB | | | | [address];[place] | | | | | | [address] | | | | + + + + + + | Glucose, | 92Comment: Testing | 65 - 99 mg/dL | EXTERNAL | | | Fasting | performed at [facility];[address] | | LAB | | | | [address];[place] | | | | | | [address] | | | | + + + + + + | BUN | 30 (H)Comment: Testing | 8 - 25 mg/dL | EXTERNAL | | | | performed at [facility];[address] | | LAB | | | | [address];[place] | | | | | | [address] | | | | + + + + + + | Creatinine | 0.93Comment: Testing | 0.70 - 1.30 | EXTERNAL | | | | performed at [facility];888 | mg/dL | LAB | | | | [address];[place] | | | | | | [address] | | | | + + + + + + | BUN/Creatin | 32Comment: Testing | | EXTERNAL | | | ine Ratio | performed at [facility];[address] | | LAB | | | | [address];[place] | | | | | | [address] | | | | + + + + + + | Calcium | 8.7Comment: Testing | 8.5 - 10.5 | EXTERNAL | | | | performed at [facility];888 | mg/dL | LAB | | | | [address];[place] | | | | | | [address] | | | | + + + + + + | Protein, | 6.9Comment: Testing | 6.3 - 8.2 g/dL | EXTERNAL | | | Total | performed at [facility];[address] | | LAB | | | | [address];[place] | | | | | | [address] | | | | + + + + + + | Albumin | 3.3Comment: Testing | 3.3 - 4.8 g/dL | EXTERNAL | | | | performed at [facility];[address] | | LAB | | | | [address];[place] | | | | | | [address] | | | | + + + + + + | Globulin | 3.6Comment: Testing | 1.3 - 4.9 g/dL | EXTERNAL | | | | performed at [facility];[address] | | LAB | | | | [address];[place] | | | | | | [address] | | | | + + + + + + | A/G Ratio | 0.9 (L)Comment: Testing | 1.0 - 2.4 | EXTERNAL | | | | performed at [facility];[address] | | LAB | | | | [address];[place] | | | | | | [address] | | | | + + + + + + | Bilirubin | 0.5Comment: Testing | 0.1 - 1.5 mg/dL | EXTERNAL | | | Total | performed at [facility];[address] | | LAB | | | | [address];[place] | | | | | | [address] | | | | + + + + + + | ALP, | 83Comment: Testing | 35 - 115 U/L | EXTERNAL | | | External | performed at [facility];[address] | | LAB | | | | [address];[place] | | | | | | [address] | | | | + + + + + + | AST | 13Comment: Testing | 10 - 45 U/L | EXTERNAL | | | | performed at [facility];[address] | | LAB | | | | [address];[place] | | | | | | [address] | | | | + + + + + + | ALT | 23Comment: Testing | 10 - 65 U/L | EXTERNAL | | | | performed at [facility];[address] | | LAB | | | | [address];[place] | | | | | | [address] | | | | + + + [...] | | | | | | at [facility];[address];[place] [address] | | | | + + + [...] | | | Fingerstick | performed at [facility];[address] | | LAB | | | | [address];[place], [place] | | | | | | [address] | | | | + + + [...] 4:20AM | | | Referring Provider Line: [phone] ID: [id number] | | + + + [...] prior to | | | surgery. The recenterer's worksheet was scanned into the electronic | [...] necessary prior to surgery. The | | recenterer's worksheet was scanned into the electronic medical [...] 2016 | | 4:20AM Referring Provider Line: [phone] ID: [id number] | |FINDINGS: Greater saphenous vein [...] 15 2016 4:20AM Referring Provider Sera e: [phone] ID: [id number] | + + VAS Carotid [...] 1:06PM | | | Referring Provider Line: [phone] ID: [id number] | | + + + + + + | Narrative | Performed At | + + + | EXAM: CAROTID DOPPLER ULTRASOUND EXAM DATE: 06/15/2016 03:52 | | | AM. CLINICAL HISTORY: Cardiac surgery, history of vascular | | | disease. COMPARISON: None. TECHNIQUE: Real-time sonographic | | | vascular imaging was performed by the recenterer through the carotid | | | arterial system with a linear transducer utilizing color-flow, Doppler | | | flow and spectral analysis. Multiple manufacturing sales representative static images | | | were [...] imaging was | | performed by the recenterer through the carotid arterial system with a linear | | transducer utilizing color-flow, Doppler flow and spectral analysis. Multiple | | manufacturing sales representative static images were saved for review. [...] 2016 | | 1:06PM Referring Provider Line: [phone] ID: [id number] | | | |ICA/CCA Ratio: [...] 15 2016 1:06PM Referring Provider Sera e: [phone] ID: [id number] | + + POC Glucose (06/14/2016 9:19 PM PDT) + + + + + + | Component | Value | Ref Range | Performed | Pathologist | | | | | At | Signature | + + + + + + | Glucose, | 129 (H)Comment: Testing | 65 - 99 mg/dL | EXTERNAL | | | Fingerstick | performed at [facility];[address] | | LAB | | | | [address];[place], [place] | | | | | | [address] | | | | + + + [...] EXTERNAL LAB | | Testing performed at [facility];[address] [place] [address];[place] [address] MRSA PCR | | | NEGATIVE Testing performed at | | | [address];[place] [address] | | + + + + +---------+ + + | Performing | Address | City/State/Zipcode | Phone Number | | Organization | | | | + +---------+ + + | EXTERNAL LAB | | | | + +---------+ + + documented in this encounter Visit Diagnoses + + | Diagnosis | + + | 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
--- OUTSIDE RECORDS SUMMARY | ~2020-05-12 | XMS | Encounter Summary ---
Demographics + + + | Address | [address] | | | [place] [address] | + + + | Home Phone | | + + + | Preferred Language | Unknown | + + + | Marital Status | Legally | + + + | Voodoo Affiliation | 1041 | + + + | Race | or | + + + | Ethnic Group | Not or | + + + Author + + + | Author | [facility] | | | and [place] | + + + | Organization | [facility] | | | and [place] | + + + | Address | Unknown | + + + | Phone | Unavailable | + + + Support + + + + + | Name | Relationship | Address | Phone | + + + + + | Jenniffer Chew | ECON | [address] | | | | | [address] | | | | | [address] | | + + + + + Care Team Providers + +------+ + | Care Nutritional Health Coach Name | Role | Phone | + [...] +--------+--------+ + + + + Encounter Details +--------+---------+ + + + | Date | Type | Department | Care Team | Description | +--------+---------+ + + + | 06/14/ | Surgery | [facility] | Todd Arguelles | CV [facility] | | 2015 | | MED CTR CV INTRA OP | MD Steven [address] | | | | | [address] | [address] [facility] | | | | | [place] | [place] [address] | | | | | [address] | [phone] | | | | | [phone] | | | +--------+---------+ + + + Social History + +-------+ [...] + + + | Blood Pressure | 131/62 | 06/14/2016 7:33 AM | | | | | PDT | | + + + + + | Pulse | 75 | 06/14/2016 7:33 AM | | | | | PDT | | + + + + + | Temperature | 36.3 C (97.3 F) | 06/14/2016 7:33 AM | | | | | PDT | | + + + + + | Respiratory Rate | 16 | 06/14/2016 7:33 AM | | | | | PDT | | + + + + + | Oxygen Saturation | 95% | 06/14/2016 7:33 AM | | | | | PDT | [...] Physician Discharge Summary Patient ID: Quinton Renae [id number] 61 y.o. 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 male with a history of insulin-dependent diabetes, hyper tension, hyperlipidemia, morbid obesity, smoking history, who presented with complaint of ex ertional chest pain. He has no known diagnosis of CAD, and has not had a stress test that he knows of. He works at the [employer], but has noticed worsening exercise tolerance this [...] about 30 pack years. He presented to [facility], and was found to have RBBB on EKG without obvious a cute ischemia, but Troponin T was slightly elevated at 0.012 (normal 0.01 or less), and pace sferred for further cardiac workup. Denies current chest pain, feels better currently. He underwent right and left heart catheterization 06/14/[address] Todd Arguelles. He is found to have multi vessel CAD and will transfer to [facility] for further care. Will recommend overn ight oximetry and outpatient sleep study when medically stable along with risk reduction. Consults: cardiology Significant Diagnostic Studies: PACS Images Show images for CV Cardiac Procedure Visit Information Location Encounter # 06/13/2016 21:38 [facility] [id number] Procedures CV C CV RHC Link to Procedure Log Procedure Log 06/14/2016 14:30 - Marine Surveyor [place] Addenda RIGHT AND LEFT CARDIAC CATHETERIZATION With ANGIOGRAPHY PATIENT NAME/: Quinton Renae, (1955) DATE OF PROCEDURE: 06/14/2016 ADJUNCT INSTRUCTOR CHEMISTRY: Todd Arguelles MD PROCEDURES PERFORMED: Coronary Angiography [...] diagonal branch, a large bifurcating first septal store warehouse associate , 1 second diagonal branch then terminates [...] cardiac cath report as generated by the [facility] PRIMARY CARE PROVIDER: Kaylan Montaño PA-C Signed by Todd Arguelles MD on 06/14/2016 14:30 Narrative Cardiac Diagnostic Report Demographics Patient Name ADA Downey Gender Male Patient Number [id number] Race Visit Number [id number] Height 69.02 inches Accession Number [id number] Weight 288.81 pounds Date of 1955 BSA 2.42 m^2 Age 61 year(s) BMI 42.63 kg/m^2 Referring Melony ARGUELLES, Date of Study 06/14/2016 Physician Diagnostic Melony ARGUELLES, Interventional Melony ARGUELLES, Physician Physician Procedure Procedure Type Diagnostic [...] Time: Total: 10:12 minutes. Contrast Material - [id number] ml Entry Locations - Percutaneous access was [...] SV (ml): 100.75 Shunts Oxygen values O2 yuxfmpmjttk847.81 Flows (l/min)Qs6.63 Vascular resistance - CO method: [...] 06/14/16 at 1430 PDT Authorizing Provider Audit [place] Date/Time Authorizing Provider Changed by 06/14/2016 7:59 MD Agnes Alonso Tech CV Cardiac Procedure (Order [id number]) Cardiac Cath Order: [id number] Released By: Jesse Merino Authorizing: Todd Arguelles MD Date: 06/14/2016 Department: [facility] ICU Procedure Abnormality Status CV Cardiac Procedure Visit Information Location Encounter # 06/13/2016 21:38 [facility] [id number] Order Information Order Date/Time Release Date/Time Start Date/Time End Date/Time 06/14/16 07:59 06/14/16 07:59 06/14/16 08:00 06/14/16 08:00 Order Details Frequency Duration Priority Order Class ONE TIME 1 occurrence Routine Hospital Performed Collection Information Collected: 06/14/2016 0852 Order Report View Order Information Authorizing Provider Audit [place] Date/Time Authorizing Provider Changed by 06/14/2016 7:59 MD Agnes Alonso [facility] Lab Requisition CV Cardiac Procedure (Order #[id number]) on 06/14/16 Disposition: [facility] for CT surgery evaluation Patient Instructions: Discharge [...] cyanocobalamin (VITAMIN B-12) tablet 500 mcg DAILY JNEIFER KUMAR Signed and Held Signed and Held [...] Discussed with Kendall Chaney, CV surgeon at [facility]. He has agreed to accept. We decided th at we would keep Mr. Renae here tonight and ambulate him. If he has no angina and seems cli nically stable, we would discharge and have him seen by Dr. Chaney Saturday in his outpatient clinic. If not stable, will transfer tomorrow. aschJenifer MD - 06/14/2016 8:15 AM PDT [facility] HOSPITALIST PROGRESS NOTE PATIENT NAME: Quinton Renae AGE: 61 y.o. DATE OF SERVICE: 06/14/2016 SUBJECTIVE: No chest pain, no shortness of breath. Symptoms exertional. Patient with burnin g pain radiating to left shoulder with malaise and palpitations for the past three or four d ays when walking son's dog. Sent from [facility]. His father passed at age 59 [...] BID sodium chloride 0.9% 1 mL/kg Intravenous Business Development Representative LABORATORY REVIEWED INCLUDING: Lab Results Component Value [...] test probability for CAD admi tted by director community center team. Dr. Arguelles is consulting. No new issues this AM. Electronically signed by: Jenifer Kumar MD, DATE/TIME: 06/14/2016 8:15 [facility] HOSPITALIST TEAM Portions of this chart may have been created using [employer] voice recognition software. Occas ional wrong-word or [...] might be different f rom the original. [facility] HISTORY AND PHYSICAL Pt. Name/Age/: [...] he knows of. He works at the [employer], but has noticed worsening exercise tolerance this [...] about 30 pack years. He presented to [facility], and was found to have RBBB on [...] left foot 2015 FAMILY HISTORY: Father of [place] in his 60's. SOCIAL HISTORY: reports that he has quit smoking. He does not have any smokeless tobacco history on file. He reports that he does not drink alcohol or use illicit drugs. 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 He lives with his and daughter in [place]. He is retire d from the [employer]. REVIEW OF SYSTEMS: Significant for stable weight and appetite. No GI symptoms. Chronic hesitation with urina tion. He had cellulitis/abscess of left foot and leg, and there was concern that he would l ose his left foot earlier this year, but this has healed. Chronic edema of both legs. Lost most of his teeth during his [employer] service. A complete 14-system review was otherwise [...] Top Tube Done Creatinine was 1.0 at [place], K 4.9. EKG: Reviewed independently by me. [...] hypertension, diabetes). - Troponin slightly elevated in [place], and discussed with Dr. Arguelles of cardiology, will plan for angiogram while hospitalized, pretest probability of CAD very high, NPO at [facility] t - Daily aspirin - No active [...] signed by: Jasen Love MD 06/14/2016 0:39 [facility] Portions of this chart may have been created with [employer] voice recognition software. Occasi onal wrong-word or [...] risk factors. He was admi tted to [facility] on 06/13/2016 for Unstable angina . He has had a month or more of exertional chest discomfort that, over time, has been produce d with less and less effort. He had prolonged pain and presented to [facility] ER where he had a slightly [...] on right calf. FAMILY HISTORY Father of [place] about age 60. SOCIAL HISTORY Does not [...] this chart may have been created with [employer] voice recognition software. Occasi onal wrong-word or sound-alike substitutions may have occurred due to the inherent vieyra itations of voice recognition software. Please read the chart carefully and recognize, using context, where these substitutions have occurred. documented in this encounter Miscellaneous Notes eICU Note - Maile Love RN - 06/14/2016 6:27 PM PDTGround ambulance crew assumed care, to transfer to [facility]. Right groin site remains without bleeding, swelling, [...] with triple vessel disease. Awaiting transport to [facility]. Right groin without swelling, hematoma. Scant amt [...] no steps to the entrance located in [place], [place]. He is normally independent and drives prior to this hospitalization. His PCP is Dr. Guru Montaño from the [facility]. He uses the [facility] pharmacy. He owns a cane. He has no preference regarding a DME agency. He declines Home Health services. He would be agreeable to having the Community Health RN from [facility] visit him at home. He declines [...] Mica de RN 06/14/2016 13:51 lan of Care - Salomon Almodovar RN - 06/14/2016 5:08 AM PDTProblem: Patient [...] client on 4L nasal cannula. lan of Care - Salomon Almodovar RN - 06/14/2016 4:59 AM PDTProblem: Patient [...] t. No chest pain noted. lan of [place] - Lidia Ingram, DONTE - 06/14/2016 2:23 AM PDTProblem: Patient Care [...] 94% on 2 lpm ssessment & Plan Jasen Salinas MD - 06/14/2016 12:38 AM PDTAssociated Problem(s): Essential hypert ension- Continue outpatient lisinopril, start metoprolol at low dose 25 mg bid ssessment & Plan Note - Van Love MD - 06/14/2016 12:37 AM PDTAssociated Problem(s): Diabetes mellitus ([facility])- Contin ue bid glargine, insulin sliding scale, and short-acting insulin before meals ssessment & Plan Note - Jules Love MD - 06/14/2016 12:37 AM PDTAssociated Problem(s): Hyperlipidemia- Continue statin, check lipids in AM ssessment & Plan Note - Jasen Love MD - 06/14/2016 12:37 AM PDTAssociated Problem(s) : Morbid obesity with BMI of 40.0-44.9, adult ([facility])- BMI of 43, would benefit from weight lo ss ssessment & Plan Note - Jasen Love MD - 06/14/2016 12:37 AM PDTAssociated Problem(s): Obstructive sle ep apnea- Untreated, and has not had sleep study, but almost certainly has HUNTER given his mor bid obesity, his RBBB, and chronic snoring - Consider overnight sleep ox study while hospitalized to see if he becomes hypoxic while s leeping ssessment & Plan Note - Jasen Love MD - 06/14/2016 12:35 AM PDTAssociated Problem(s): Unstable a ngina ([facility])- Presents with progressive, worsening substernal chest pain with exertion reliev ed with rest, and he has every risk factor for CAD (family history, hyperlipidemia, smoking history, hypertension, diabetes, obesity, HUNTER) - Troponin slightly elevated in [place], and discussed with Dr. Arguelles of cardiology, will plan for angiogram while hospitalized, pretest probability of CAD very high, NPO at [facility] t - Daily aspirin - No active [...] 144 | 70 - 150 mg/dL | [facility] [...] + | [facility] | [address] | [place] | [phone] | | [facility] | | [address] | | | - LABORATORY | | [...] ST. | [address] | [place] | [phone] | | [facility] | | [address] | | | - LABORATORY | | [...] (1955) DATE OF PROCEDURE: 06/14/2016 | | ADJUNCT INSTRUCTOR CHEMISTRY: Todd Arguelles MD PROCEDURES PERFORMED: Coronary | [...] a large bifurcating first septal | | store warehouse associate, 1 second diagonal branch then terminates at [...] report as | | generated by the [facility] PRIMARY CARE PROVIDER: Kaylan Montaño PA-C | + + + + -+ | Narrative | Performed At | + + -+ | Cardiac | | | Diagnostic Report Demographics Patient Name ADA Downey | | | Gender Male Patient Number [id number] | | | Race Visit Number | | | [id number] Height 69.02 inches | | | Accession Number [id number] Weight | | | 288.81 pounds Date of 1955 BSA | | | 2.42 m^2 Age 61 year(s) | | | BMI 42.63 kg/m^2 Referring | | | Melony ARGUELLES, Date of Study 06/14/2016 Physician | | | MD Diagnostic Melony ARGUELLES, Interventional | | | Melony ARGUELLES, Physician | | | Physician ProcedureProcedure Type [...] minutes. Contrast Material - | | | Lcrztzkgm679 ml Entry Locations - Percutaneous access was [...] Shunts Oxygen values O2 | | | ssrotyqvgke640.81 Flows (l/min)Qs6.63 Vascular resistance - CO | [...] | |Contrast Material | | | - Yuaogsqkp864 ml | | | | | |Entry [...] | | | | - PCW - / (22) | | | | | | [...] | | | | | | O2 riwvoqczauc324.81 | | | | | | Flows [...] Male | | | | Patient Number [id number] Race | | | | Visit Number [id number] Height 69.02 inches | | | | Accession Number [id number] Weight 288.81 pounds | | | | [...] | | Contrast Material | | - Ijkfkueeg440 ml | | | | Entry Locations [...] Oxygen values | | | | O2 ibfstoytvsm090.81 | | | | Flows (l/min)Qs6.63 | [...] | COOX, POC | | | [facility] [...] | + + + + + | [facility] | [address] | [place] | [phone] | | [facility] | | [address] | | | - LABORATORY | | [...] | | | globin | | | [facility] | | | COOX, POC | | [...] | + + + + + | [facility] | [address] | [place] | [phone] | | [facility] | | [address] | | | - LABORATORY | | [...] [address] | [place] | [phone] | | [facility] | | [address] | | | - LABORATORY | | [...] + | [facility] | [address] | [place] | [phone] | | [facility] | | [address] | | | - LABORATORY | | [...] | | | Cells | | | [facility] | | | | | | MEDICAL | | | | | | CENTER - | | | | | | LABORATORY | | + + + + + + | Red Blood | 4.58 | 4.30 - 5.70 | [facility] | | | Cells | | M/uL | [facility] | | | | | | MEDICAL | | | | | | CENTER - | | | | | | LABORATORY | | + + + + + + | Hemoglobin | 13.5 | 13.5 - 18.0 | [facility] | | | | | g/dL | [facility] | | | [...] | + + + + + | [facility] | [address] | [place] | [phone] | | [facility] | | [address] | | | - LABORATORY | | [...] | | es | | | [facility] | [...] Reference Range as of | | [facility] | | | | May 05, 2015 | | MEDICAL | | | | Values may be 10-20% | | CENTER - | | | | lower with new, | | LABORATORY | | | | standardized method. | | | | + + + + + + | Chol/HDL | 4.6 | | [facility] | | | Ratio | | | [facility] | | | | | | MEDICAL | | | | | | CENTER - | | | | | | LABORATORY | | + + + + + + | LDL, | 96 | <=130 mg/dL | [facility] | | | Calculated | | | [facility] | [...] | + + + + + | [facility] | [address] | [place] | [phone] | | [facility] | | [address] | | | - LABORATORY | | [...] | | | | | mmol/L | [facility] | | | | | | MEDICAL | | | | | | CENTER - | | | | | | LABORATORY | | + + + + + + | K | 4.8 | 3.5 - 5.1 | [facility] | | | | | mmol/L | [facility] | | | | [...] | 0.87 | 0.60 - 1.30 | [facility] | | | | | mg/dL | [...] | [facility] | | | [place] | RATE,ESTIMATED | | MEDICAL | | | | mL/min/1.15i5Dsqn than | | CENTER - | | [...] | + + + + + | [facility] | [address] | [place] | [phone] | | [facility] | | [address] | | | - LABORATORY | | | | + + + + + CK Total with CK-MB (06/14/2016 3:27 AM PDT) + +-------+ + + + | Component | Value | Ref Range | Performed | Pathologist | | | | | At | Signature | + +-------+ + + + | CK TOTAL | 78 | 22 - 269 U/L | [facility] | | | | | | [facility] | | | | | | MEDICAL | | | | | | CENTER - | | | | | | LABORATORY | | + +-------+ + + + | CK-MB | 4.6 | 0.6 - 6.3 ng/mL | [facility] | | | | | | [facility] | | | | | | MEDICAL | | | | | | CENTER - | | | | | | LABORATORY | | + +-------+ + + + | CK-MB Index | 5.9 | % | [facility] | | | | | | [facility] | | | | | | [...] + | [facility] | [address] | [place] | [phone] | | [facility] | | [address] | | | - LABORATORY | | | | + + + + + Troponin I (06/14/2016 3:27 AM PDT) + + + + + + | Component | Value | Ref Range | Performed | Pathologist | | | | | At | Signature | + + + + + + | Troponin I | 0.02Comment: Reference | <0.06 ng/mL | [facility] | | | | Ranges:0.00-0.06 = | [...] | | | | | | [employer] | | | | | [...] + | [facility] | [address] | [place] | [phone] | | [facility] | | [address] | | | - LABORATORY | | [...] | | chromogenic agar method | | [facility] | | [...] [address] | [place] | [phone] | | [facility] | | [address] | | | - LABORATORY | | [...] [address] | [place] | [phone] | | [facility] | | [address] | | | - LABORATORY | | | | + + + + + CK Total with CK-MB (06/13/2016 10:35 PM PDT) + +-------+ + + + | Component | Value | Ref Range | Performed | Pathologist | | | | | At | Signature | + +-------+ + + + | CK TOTAL | 82 | 22 - 269 U/L | [facility] | | | | | | [facility] | | | | | | MEDICAL | | | | | | CENTER - | | | | | | LABORATORY | | + +-------+ + + + | CK-MB | 5.3 | 0.6 - 6.3 ng/mL | [facility] | | | | | | [facility] | | | | | | MEDICAL | | | | | | CENTER - | | | | | | LABORATORY | | + +-------+ + + + | CK-MB Index | 6.5 | % | [facility] | | | | | | ST[facility] [...] | + + + + + | [facility] | [address] | [place] | [phone] | | [facility] | | [address] | | | - LABORATORY | | [...] | | | | | | [employer] | | | | | [...] [address] | [place] | [phone] | | [facility] | | [address] | | | - LABORATORY | | [...] | | | | FRANK VAUGHAN MD ([id number]) | | | | | | on [...] [address] | [place] | [phone] | | [facility] | | [address] | | | - LABORATORY | | [...] Visit Diagnoses Not on filedocumented in this encounter Administered Medications + +--------+ +--------+------+------+ | Medication Order | MAR | Action | Dose | Rate | Site | | | Action | Date | | | | + +--------+ +--------+------+------+ | fentaNYL (PF) injection ONCE | Given | 06/14/20 | 25 mcg | | | | PRN, Starting Bekah 06/14/16 at | | 16 9:13 | | | | | 0854, Intra-op | | AM PDT | | | | + +--------+ +--------+------+------+ +-------+ +--------+---+---+ | Given | /20/20 | 50 mcg | | | | | 16 8:54 | | | | | | AM PDT | | | | +-------+ +--------+---+---+ +---+---+ | | | +---+---+ + +-------+ +---------+---+---+ | iohexol (OMNIPAQUE 350) 350 | Given | 06/14/20 | 100 mLs | | | | mg/mL injection ONCE PRN, | | 16 10:45 | | | | | Starting Bekah 06/14/16 at 1045, | | AM PDT | | | | | Intra-op | | | | | | + +-------+ +---------+---+---+ +---+---+ | | | +---+---+ + +-------+ +-------+---+---+ | lidocaine 1% injection ONCE | Given | 06/14/20 | 3 mLs | | | | PRN, Starting Bekah 16 at | | 16 9:27 | | | | | 0900, Intra-op | | AM PDT | | | | + +-------+ +-------+---+---+ +-------+ +-------+---+---+ | Given | 10/20/20 | 8 mLs | | | | | 16 9:00 | | | | | | AM PDT | | | | +-------+ +-------+---+---+ +---+---+ | | | +---+---+ + +-------+ +--------+---+---+ | midazolam (VERSED) 1 mg/mL | Given | 10/20/20 | 0.5 mg | | | | injection ONCE PRN, Starting Bekah | | 16 10:17 | | | | | 16 at 0854, Intra-op | | AM PDT | | | | + +-------+ +--------+---+---+ +-------+ +--------+---+---+ | Given | 10/20/20 | 0.5 mg | | | | | 16 9:59 | | | | | | AM PDT | | | | +-------+ +--------+---+---+ | Given | 06/14/20 | 0.5 mg | | | | | 16 9:45 | | | | | | AM PDT | | | | +-------+ +--------+---+---+ + +---+ | | | + +---+ | sodium chloride 0.9% (NS) bolus | | | 131 mL 131 mL (1 mL/kg | | | 131 kg), Intravenous, Administer | | | over 1 Hours, MUSEUM TOUR GUIDE, Starting | | | Bekah 06/14/16 at 0809, For 1 dose, | | | Begin 1 hour prior to procedure, | | | | | + +---+ | | | + +---+ documented in this encounter
--- OUTSIDE RECORDS SUMMARY | ~2020-05-12 | XMS | Encounter Summary ---
Demographics + + + | Address | [address] | | | [place] [address] | + + + | Home Phone | | + + + | Preferred Language | Unknown | + + + | Marital Status | Legally | + + + | Synagogue Affiliation | 1041 | + + + | Race | or | + + + | Ethnic Group | Not or | + + + Author + + + | Author | [facility] | | | and [place] | + + + | Organization | [facility] | | | and [place] | + + + | Address | Unknown | + + + | Phone | Unavailable | + + + Support + + + + + | Name | Relationship | Address | Phone | + + + + + | Jenniffer Chew | ECON | [address] | | | | | [address] [facility] | | | | | [address] | | + + + + + Care Team Providers + +------+ + | Care Electric Power Line Examiner Name | Role | Phone | + +------+ + PCP | Unavailable | + +------+ + Encounter Details +--------+ + + + + | Date | Type | Department | Care Team | Description | +--------+ + + + + | 05/27/ | Hospital | [facility] | Sanjiv Hernandez MD | | | 2000 | Encounter | MED CTR GENERIC OP | [address], [address] | | | | | CONV DEPT [address] | [address] [place], [place] | | | | | [address] [place], | [address] | | | | | [place] [address] | | | | | | [phone] | | | +--------+ + + + [...]
--- OUTSIDE RECORDS SUMMARY | ~2020-05-12 | XMS | Encounter Summary ---
Demographics + + + | Address | [address] | | | [place] [address] | + + + | Home Phone | | + + + | Preferred Language | Unknown | + + + | Marital Status | Legally | + + + | Adventism Affiliation | 1041 | + + + | Race | or | + + + | Ethnic Group | Not or | + + + Author + + + | Author | [facility] | | | and [place] | + + + | Organization | [facility] | | | and [place] | + + + | Address | Unknown | + + + | Phone | Unavailable | + + + Support + + + + + | Name | Relationship | Address | Phone | + + + + + | Jenniffer Chew | ECON | [address] | | | | | [address] [place] | | | | | [address] | | + + + + + Care Team Providers + +------+ + | Care Entrepreneur Name | Role | Phone | + +------+ + PCP | Unavailable | + +------+ + Encounter Details +--------+ + + + + | Date | Type | Department | Care Team | Description | +--------+ + + + + | 01/08/ | Hospital | [facility] | | | | 2005 | Encounter | MED CTR XRAY [address] | | | | | | [address] | | | | | | [place] [address] | | | | | | [phone] | | | +--------+ + + + [...]
--- OUTSIDE RECORDS SUMMARY | ~2020-05-12 | XMS | Encounter Summary ---
Demographics + + + | Address | [address] | | | [place] [address] | + + + | Home Phone [...] Author + + + | Author | [facility] | | | and [place] | + + + | Organization | [facility] | | | and [place] | + + + | Address | Unknown | + + + | Phone | Unavailable | + + + Support + + + + + | Name | Relationship | Address | Phone | + + + + + | Jenniffer Chew | ECON | [address] | | | | | [address] | | | | | [address] | | + + + + + Care Team Providers + +------+ + | Care Renewable Energy Broker Name | Role | Phone | + [...] | | | | | [address] | [facility] | | | | | [place] | [place] [address] | | | | | [address] | [phone] | | | | | [phone] | | | +--------+---------+ + + + [...] Physician Discharge Summary Patient ID: Quinton Renae [id number] 61 y.o. 1955 Admit date: 06/13/2016 Discharge date and time: 06/14/2016 Admitting Physician: Jasen Love MD Discharge Physician: Jenifer Kumar MD Admission Diagnoses: Chest pain [R07.9] Discharge Diagnoses: Principal Problem: Coronary artery disease involving [place] coronary artery of [place] heart with unstable an neto pectoris Active Problems: Diabetes mellitus Hyperlipidemia Obstructive sleep apnea Essential hypertension Unstable angina Morbid obesity with BMI of 40.0-44.9, adult Hypertriglyceridemia Admission Condition: fair Discharged Condition: good Indication for Admission: Chest pain, admitted on transfer from [place] [facility] Course: This is a 61 y.o. male with a history of insulin-dependent diabetes, hyper tension, hyperlipidemia, morbid obesity, smoking history, who presented with complaint of ex ertional chest pain. He has no known diagnosis of CAD, and has not had a stress test that he knows of. He works at the [employer], but has noticed worsening exercise tolerance this [...] about 30 pack years. He presented to [facility], and was found to have RBBB on EKG without obvious a cute ischemia, but Troponin T was slightly elevated at 0.012 (normal 0.01 or less), and pace sferred for further cardiac workup. Denies current chest pain, feels better currently. He underwent right and left heart catheterization 06/14/[address] Todd Arguelles. He is found to have multi vessel CAD and will transfer to [facility] for further care. Will recommend overn ight oximetry and outpatient sleep study when medically stable along with risk reduction. Consults: cardiology Significant Diagnostic Studies: PACS Images Show images for CV Cardiac Procedure Visit Information Location Encounter # 06/13/2016 21:38 [facility] [id number] Procedures CV C CV RHC Link to Procedure Log Procedure Log 06/14/2016 14:30 - Retail Link Analyst [place] Addenda RIGHT AND LEFT CARDIAC CATHETERIZATION With ANGIOGRAPHY PATIENT NAME/: Quinton Renae, (1955) DATE OF PROCEDURE: 06/14/2016 MYSQL DATABASE ADMINISTRATOR: Todd Arguelles MD PROCEDURES PERFORMED: Coronary Angiography [...] diagonal branch, a large bifurcating first septal rehabilitation coordinator , 1 second diagonal branch then terminates [...] cardiac cath report as generated by the [employer] PRIMARY CARE PROVIDER: Kaylan Montaño PA-C Signed by Todd Arguelles MD on 06/14/2016 14:30 Narrative Cardiac Diagnostic Report Demographics Patient Name ADA Downey Gender Male Patient Number [id number] Race Visit Number [id number] Height 69.02 inches Accession Number [id number] Weight 288.81 pounds Date of 1955 BSA [...] Time: Total: 10:12 minutes. Contrast Material - [id number] ml Entry Locations - Percutaneous access was [...] SV (ml): 100.75 Shunts Oxygen values O2 ywefrwxzxen390.81 Flows (l/min)Qs6.63 Vascular resistance - CO method: [...] 06/14/16 at 1430 PDT Authorizing Provider Audit [place] Date/Time Authorizing Provider Changed by 06/14/2016 7:59 MD Agnes Alonso Tech CV Cardiac Procedure (Order [id number]) Cardiac Cath Order: [id number] Released By: Jesse Merino Authorizing: Todd Arguelles MD Date: 06/14/2016 Department: [facility] ICU Procedure Abnormality Status CV Cardiac Procedure Visit Information Location Encounter # 06/13/2016 21:38 [facility] [id number] Order Information Order Date/Time Release Date/Time Start Date/Time End Date/Time 06/14/16 07:59 06/14/16 07:59 06/14/16 08:00 06/14/16 08:00 Order Details Frequency Duration Priority Order Class ONE TIME 1 occurrence Routine Hospital Performed Collection Information Collected: 06/14/2016 0852 Order Report View Order Information Authorizing Provider Audit [place] Date/Time Authorizing Provider Changed by 06/14/2016 7:59 MD Agnes Alonso [facility] Lab Requisition CV Cardiac Procedure (Order #[id number]) on 06/14/16 Disposition: [facility] for CT surgery evaluation Patient Instructions: Discharge [...] Discussed with Kendall Chaney, CV surgeon at [facility]. He has agreed to accept. We decided th at we would keep Mr. Renae here tonight and ambulate him. If he has no angina and seems cli nically stable, we would discharge and have him seen by Dr. Chaney Saturday in his outpatient clinic. If not stable, will transfer tomorrow. aschJenifer MD - 06/14/2016 8:15 AM PDT [facility] PROGRESS NOTE PATIENT NAME: Quinton Renae AGE: 61 y.o. DATE OF SERVICE: 06/14/2016 SUBJECTIVE: No chest pain, no shortness of breath. Symptoms exertional. Patient with burnin g pain radiating to left shoulder with malaise and palpitations for the past three or four d ays when walking son's dog. Sent from [facility]. 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 Dr. Arguelles is consulting. No new issues this AM. Electronically signed by: Jenifer Kumar MD, DATE/TIME: 06/14/2016 8:15 [facility] HOSPITALIST TEAM Portions of this chart may have been created using [employer] voice recognition software. Occas ional wrong-word or [...] might be different f rom the original. [facility] HISTORY AND PHYSICAL Pt. Name/Age/: [...] he knows of. He works at the [employer], but has noticed worsening exercise tolerance this [...] about 30 pack years. He presented to [facility], and was found to have RBBB on [...] left foot 2015 FAMILY HISTORY: Father of [place] in his 60's. SOCIAL HISTORY: reports that he has quit smoking. He does not have any smokeless tobacco history on file. He reports that he does not drink alcohol or use illicit drugs. 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 He lives with his and daughter in [place]. He is retire d from the [employer]. REVIEW OF SYSTEMS: Significant for stable weight and appetite. No GI symptoms. Chronic hesitation with urina tion. He had cellulitis/abscess of left foot and leg, and there was concern that he would l ose his left foot earlier this year, but this has healed. Chronic edema of both legs. Lost most of his teeth during his [employer] service. A complete 14-system review was otherwise [...] Top Tube Done Creatinine was 1.0 at [place], K 4.9. EKG: Reviewed independently by me. [...] hypertension, diabetes). - Troponin slightly elevated in [place], and discussed with Dr. Arguelles of cardiology, will plan for angiogram while hospitalized, pretest probability of CAD very high, NPO at [facility] t - Daily aspirin - No [...] signed by: Jasen Love MD 06/14/2016 0:39 [facility] Portions of this chart may have been created with [employer] voice recognition software. Occasi onal wrong-word or [...] risk factors. He was admi tted to [facility] on 06/13/2016 for Unstable angina . He has had a month or more of exertional chest discomfort that, over time, has been produce d with less and less effort. He had prolonged pain and presented to [facility] ER where he had a slightly elevated [...] on right calf. FAMILY HISTORY Father of [place] about age 60. SOCIAL HISTORY Does not [...] this chart may have been created with [employer] voice recognition software. Occasi onal wrong-word or sound-alike substitutions may have occurred due to the inherent vieyra itations of voice recognition software. Please read the chart carefully and recognize, using context, where these substitutions have occurred. documented in this encounter Miscellaneous Notes eICU Note - Maile Love RN - 06/14/2016 6:27 PM PDTGround ambulance crew assumed care, to transfer to [facility]. Right groin site remains without [...] with triple vessel disease. Awaiting transport to [facility]. Right groin without swelling, hematoma. [...] no steps to the entrance located in [place], [place]. He is normally independent and drives prior to this hospitalization. His PCP is Dr. Guru Montaño from the [facility]. He uses the [facility] pharmacy. He owns a cane. He has no preference regarding a DME agency. He declines Home Health services. He would be agreeable to having the [facility] RN from [facility] visit him at home. He declines [...] 06/14/2016 12:37 AM PDTAssociated Problem(s): Diabetes mellitus ([facility])- Contin ue bid glargine, insulin sliding scale, and short-acting insulin before meals ssessment & Plan Note - Jules Love MD - 06/14/2016 12:37 AM PDTAssociated Problem(s): Hyperlipidemia- Continue statin, check lipids in AM ssessment & Plan Note - Jasen Love MD - 06/14/2016 12:37 AM PDTAssociated Problem(s) : Morbid obesity with BMI of 40.0-44.9, adult ([facility])- BMI of 43, would benefit from weight [...] 12:35 AM PDTAssociated Problem(s): Unstable a ngina ([facility])- Presents with progressive, worsening substernal chest pain with exertion reliev ed with rest, and he has every risk factor for CAD (family history, hyperlipidemia, smoking history, hypertension, diabetes, obesity, HUNTER) - Troponin slightly elevated in [place], and discussed with Dr. Arguelles of cardiology, will plan for angiogram while hospitalized, pretest probability of CAD very high, NPO at [facility] t - Daily aspirin - No [...] + | [facility] | [address] | [place] | [phone] | | [facility] | | [address] | | | - LABORATORY | | [...] ST. | [address] | [place] | [phone] | | [facility] | | [address] | | | - LABORATORY | | [...] (1955) DATE OF PROCEDURE: 06/14/2016 | | MYSQL DATABASE ADMINISTRATOR: Todd Arguelles MD PROCEDURES PERFORMED: Coronary | [...] a large bifurcating first septal | | rehabilitation coordinator, 1 second diagonal branch then terminates at [...] report as | | generated by the [employer] PRIMARY CARE PROVIDER: Kaylan Montaño PA-C | + + + + -+ | Narrative | Performed At | + + -+ | Cardiac | | | Diagnostic Report Demographics Patient Name ADA Downey | | | Gender Male Patient Number [id number] | | | Race Visit Number | | | [id number] Height 69.02 inches | | | Accession Number [id number] Weight | | | 288.81 pounds Date [...] minutes. Contrast Material - | | | Carzkjmvc193 ml Entry Locations - Percutaneous access was [...] Shunts Oxygen values O2 | | | tnopcxfbwgn549.81 Flows (l/min)Qs6.63 Vascular resistance - CO | [...] | |Contrast Material | | | - Zfkmuezoi583 ml | | | | | |Entry [...] | | | | | | O2 jugeuwgrapj872.81 | | | | | | Flows [...] Male | | | | Patient Number [id number] Race | | | | Visit Number [id number] Height 69.02 inches | | | | Accession Number [id number] Weight 288.81 pounds | | | | [...] | | Contrast Material | | - Aakcgbruq916 ml | | | | Entry Locations [...] Oxygen values | | | | O2 cfxxwxxzuxq033.81 | | | | Flows (l/min)Qs6.63 | [...] [address] | [place] | [phone] | | [facility] | | [address] | | | - LABORATORY | | [...] [address] | [place] | [phone] | | [facility] | | [address] | | | - LABORATORY | | [...] [address] | [place] | [phone] | | [facility] | | [address] | | | - LABORATORY | | [...] + | [facility] | [address] | [place] | [phone] | | [facility] | | [address] | | | - LABORATORY | | [...] | Cells | | M/uL | [facility] | | | | [...] [address] | [place] | [phone] | | [facility] | | [address] | | | - LABORATORY | | [...] [address] | [place] | [phone] | | [facility] | | [address] | | | - LABORATORY | | [...] | 0.87 | 0.60 - 1.30 | [facility] | | | | | mg/dL | [...] | [facility] | | | [place] | RATE,ESTIMATED | | MEDICAL | | | | mL/min/1.06l8Dzqf than | | CENTER - | | [...] [address] | [place] | [phone] | | [facility] | | [address] | | | - LABORATORY | | [...] + | [facility] | [address] | [place] | [phone] | | [facility] | | [address] | | | - LABORATORY | | | | + + + + + Troponin I (06/14/2016 3:27 AM PDT) + + + + + + | Component | Value | Ref Range | Performed | Pathologist | | | | | At | Signature | + + + + + + | Troponin I | 0.02Comment: Reference | <0.06 ng/mL | [facility] | | | | Ranges:0.00-0.06 = | [...] | | | | | | [employer] | | | | | [...] + | [facility] | [address] | [place] | [phone] | | [facility] | | [address] | | | - LABORATORY | | [...] [address] | [place] | [phone] | | [facility] | | [address] | | | - LABORATORY | | [...] [address] | [place] | [phone] | | [facility] | | [address] | | | - LABORATORY | | [...] [address] | [place] | [phone] | | [facility] | | [address] | | | - LABORATORY | | [...] | | | | | | [employer] | | | | | [...] [address] | [place] | [phone] | | [facility] | | [address] | | | - LABORATORY | | [...] | | | | FRANK VAUGHAN MD ([id number]) | | | | | | on [...] [address] | [place] | [phone] | | [facility] | | [address] | | | - LABORATORY | | [...] mcg | | | | PRN, Starting Beakh 06/14/16 at | | 16 9:13 | [...] Administer | | | over 1 Hours, LICENSING SERVICES CLERK, Starting | | | Bekah 06/14/16 at 0809, For 1 dose, | | | Begin 1 hour prior to procedure, | | | | | + +---+ | | | + +---+ documented in this encounter
--- OUTSIDE RECORDS SUMMARY | ~2020-05-12 | XMS | Encounter Summary ---
Demographics + + + | Address | [address] | | | [place] [address] | + + + | Home Phone | | + + + | Preferred Language | Unknown | + + + | Marital Status | Legally | + + + | Anglican Affiliation | 1041 | + + + | Race | or | + + + | Ethnic Group | Not or | + + + Author + + + | Author | [facility] | | | and [place] | + + + | Organization | [facility] | | | and [place] | + + + | Address | Unknown | + + + | Phone | Unavailable | + + + Support + + + + + | Name | Relationship | Address | Phone | + + + + + | Jenniffer Chew | ECON | [address] | | | | | [address] | | | | | [address] | | + + + + + Care Team Providers + +------+ + | Care Ingredient Mixer Name | Role | Phone | + [...] + + | 06/13/ | Hospital | [facility] | Jasen Love, | Morbid obesity with | | 2016 - | Encounter | MED CTR ICU [address] | MD [address] | BMI of 40.0-44.9, | | | | [place], | [place], [place] | adult ([facility]) (Primary | | 06/14/ | | [place] [address] | [phone] | Dx); Unstable | | 2015 | | [phone] | [phone] | angina (HCC); | | | | | | Coronary artery | | | | | | disease involving | | | | | | wrangell coronary | | | | | | artery of wrangell | | | | | | heart with unstable | | | | | | angina pectoris | | | | | | ([facility]); | | | | | | Hypertriglyceridemia [...] Physician Discharge Summary Patient ID: Quinton Renae [id number] 61 y.o. 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 male with a history of insulin-dependent diabetes, hyper tension, hyperlipidemia, morbid obesity, smoking history, who presented with complaint of ex ertional chest pain. He has no known diagnosis of CAD, and has not had a stress test that he knows of. He works at the [employer], but has noticed worsening exercise tolerance this [...] about 30 pack years. He presented to [facility], and was found to have RBBB [...] multi vessel CAD and will transfer to [facility] for further care. Will recommend overn ight oximetry and outpatient sleep study when medically stable along with risk reduction. Consults: cardiology Significant Diagnostic Studies: PACS Images Show images for CV Cardiac Procedure Visit Information Location Encounter # 06/13/2016 21:38 [place] [facility] [id number] Procedures CV LHC CV RHC Link to Procedure Log Procedure Log 06/14/2016 14:30 - [employer] [facility] Addenda RIGHT AND LEFT CARDIAC CATHETERIZATION With ANGIOGRAPHY PATIENT NAME/: Quinton Downey Renae, (1955) DATE OF PROCEDURE: 06/14/2016 TRACTOR OPERATOR HELPER: Todd Arguelles MD PROCEDURES PERFORMED: Coronary Angiography [...] diagonal branch, a large bifurcating first septal middleware developer , 1 second diagonal branch then terminates [...] cardiac cath report as generated by the [employer] PRIMARY CARE PROVIDER: Kaylan Montaño PA-C Signed by Todd Arguelles MD on 06/14/2016 14:30 Narrative Cardiac Diagnostic Report Demographics Patient Name ADA Downey Gender Male Patient Number [id number] Race Visit Number [id number] Height 69.02 inches Accession Number [id number] Weight 288.81 pounds Date of 1955 BSA [...] Time: Total: 10:12 minutes. Contrast Material - Uwntcarxg730 ml Entry Locations - Percutaneous access was [...] SV (ml): 100.75 Shunts Oxygen values O2 jsschmyxuhz065.81 Flows (l/min)Qs6.63 Vascular resistance - CO method: [...] 06/14/16 at 1430 PDT Authorizing Provider [place] Date/Time Authorizing Provider Changed by 06/14/2016 7:59 MD Agnes Alonso Tech CV Cardiac Procedure (Order [id number]) Cardiac Cath Order: [id number] Released By: Jesse Merino Authorizing: Todd Arguelles MD Date: 06/14/2016 Department: [facility] ICU Procedure Abnormality Status CV Cardiac Procedure Visit Information Location Encounter # 06/13/2016 21:38 [facility] [id number] Order Information Order Date/Time Release Date/Time Start Date/Time End Date/Time 06/14/16 07:59 06/14/16 07:59 06/14/16 08:00 06/14/16 08:00 Order Details Frequency Duration Priority Order Class ONE TIME 1 occurrence Routine Hospital Performed Collection Information Collected: 06/14/2016 0852 Order Report View Order Information Authorizing Provider [place] Date/Time Authorizing Provider Changed by 06/14/2016 7:59 MD Agnes Alonso Tech Lab Requisition CV Cardiac Procedure (Order #[id number]) on 06/14/16 Disposition: [facility] for CT surgery evaluation Patient Instructions: [...] in the right coronary. Discussed with Kendall Cahney, CV surgeon at [facility]. He has agreed to accept. We decided th at we would keep Mr. Renae here tonight and ambulate him. If he has no angina and seems cli nically stable, we would discharge and have him seen by Dr. Chaney Saturday in his outpatient clinic. If not stable, will transfer tomorrow. Jenifer Lema MD - 06/14/2016 8:15 AM PDT [facility] HOSPITALIST PROGRESS NOTE PATIENT NAME: Quinton [...] BID sodium chloride 0.9% 1 mL/kg Intravenous Hot Plate Plywood Press Laborer LABORATORY REVIEWED INCLUDING: Lab Results Component Value [...] test probability for CAD admi tted by shiftman team. Dr. Arguelles is consulting. No new issues this AM. Electronically signed by: Jenifer Kumar MD, DATE/TIME: 06/14/2016 8:15 [facility] HOSPITALIST TEAM Portions of this chart may have been created using [employer] voice recognition software. Occas ional wrong-word or [...] might be different f rom the original. [facility] HISTORY AND PHYSICAL Pt. Name/Age/: [...] he knows of. He works at the [employer], but has noticed worsening exercise tolerance this [...] about 30 pack years. He presented to [facility], and was found to have RBBB on EKG without obvious a cute ischemia, but Troponin T was slightly elevated at 0.012 (normal 0.01 or less), and apce sferred for further cardiac workup. Denies current [...] left foot 2015 FAMILY HISTORY: Father of [place] in his 60's. SOCIAL HISTORY: reports that he has quit smoking. He does not have any smokeless tobacco history on file. He reports that he does not drink alcohol or use illicit drugs. 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 He lives with his and daughter in [place]. He is retire d from the [employer]. REVIEW OF SYSTEMS: Significant for stable weight and appetite. No GI symptoms. Chronic hesitation with urina tion. He had cellulitis/abscess of left foot and leg, and there was concern that he would l ose his left foot earlier this year, but this has healed. Chronic edema of both legs. Lost most of his teeth during his [employer] service. A complete 14-system review was otherwise [...] Top Tube Done Creatinine was 1.0 at [facility] K 4.9. EKG: Reviewed independently by [...] hypertension, diabetes). - Troponin slightly elevated in [place], and discussed with Dr. Arguelles of cardiology, will plan for angiogram while hospitalized, pretest probability of CAD very high, NPO at [facility] t - Daily aspirin - [...] signed by: Jasen Love MD 06/14/2016 0:39 [facility] Portions of this chart may have been created with [employer] voice recognition software. Occasi onal wrong-word or [...] risk factors. He was admi tted to [facility] on 06/13/2016 for Unstable angina . [...] on right calf. FAMILY HISTORY Father of [place] about age 60. SOCIAL HISTORY Does not [...] this chart may have been created with [employer] voice recognition software. Occasi onal wrong-word or sound-alike substitutions may have occurred due to the inherent vieyra itations of voice recognition software. Please read the chart carefully and recognize, using context, where these substitutions have occurred. documented in this encounter Miscellaneous Notes eICU Note - Maile Love RN - 06/14/2016 6:27 PM PDTGround ambulance crew assumed care, to transfer to [facility]. Right groin site remains without [...] with triple vessel disease. Awaiting transport to [facility]. Right groin without swelling, hematoma. [...] no steps to the entrance located in [place], [place]. He is normally independent and drives prior to this hospitalization. His PCP is Dr. Guru Montaño from the [facility]. He uses the [facility] pharmacy. He owns a cane. He has no preference regarding a DME agency. He declines Home Health services. He would be agreeable to having the Community Health RN from [facility] visit him at home. He declines to [...] 12:35 AM PDTAssociated Problem(s): Unstable spike zayas ([facility])- Presents with progressive, worsening substernal chest pain with exertion reliev ed with rest, and he has every risk factor for CAD (family history, hyperlipidemia, smoking history, hypertension, diabetes, obesity, HUNTER) - Troponin slightly elevated in [place], and discussed with Dr. Arguelles of cardiology, will plan for angiogram while hospitalized, pretest probability of CAD very high, [facility] t - Daily aspirin - No [...] MEDICAL | | | | | | [facility] - | | | | | | LABORATORY | | + +-------+ + + + + + | Specimen | + + | Blood | + + + + + + + | Performing | Address | City/State/Zipcode | Phone Number | | Organization | | | | + + + + + | [facility] | [address] | [place] | [phone] | | [facility] | | [address] | | | - LABORATORY | | [...] [address] | [place] | [phone] | | [facility] | | [address] | | | - LABORATORY | | | | + + + + + CV CARDIAC PROCEDURE (06/14/2016 11:02 AM PDT) + + | Specimen | + + | | + + + + | Addenda | + + | Addendum by Todd Argeulles MD on 06/14/2016 2:30 PM RIGHT AND LEFT | | CARDIAC CATHETERIZATION With ANGIOGRAPHY PATIENT NAME/: Quinton Renea, | | (1955) DATE OF PROCEDURE: 06/14/2016 | | TRACTOR OPERATOR HELPER: Todd Arguelles MD PROCEDURES PERFORMED: Coronary | [...] a large bifurcating first septal | | middleware developer, 1 second diagonal branch then terminates at [...] report as | | generated by the [facility] PRIMARY CARE PROVIDER: Kaylan Montaño PA-C | + + + + -+ | Narrative | Performed At | + + -+ | Cardiac | | | Diagnostic Report Demographics Patient Name ADA Downey | | | Gender Male Patient Number [id number] | | | Race Visit Number | | | [id number] Height 69.02 inches | | | Accession Number [id number] Weight | | | 288.81 pounds Date [...] minutes. Contrast Material - | | | Decidcoih159 ml Entry Locations - Percutaneous access was [...] Compression. Diagnostic | | | Catheters - SWAN-GREAME was used for Right heart cath. - [...] Shunts Oxygen values O2 | | | ssxrhotfavk693.81 Flows (l/min)Qs6.63 Vascular resistance - CO | [...] | |Contrast Material | | | - Rsrbgzijm836 ml | | | | | |Entry [...] | | | | | | O2 mavxvvibepu645.81 | | | | | | Flows [...] Male | | | | Patient Number [id number] Race | | | | Visit Number [id number] Height 69.02 inches | | | | Accession Number [id number] Weight 288.81 pounds | | | | [...] | | Contrast Material | | - Vpxkvaivd132 ml | | | | Entry Locations [...] Oxygen values | | | | O2 bonykvtfcdq130.81 | | | | Flows (l/min)Qs6.63 | [...] | COOX, POC | | | [facility] | | | | | | MEDICAL [...] ST. | [address] | [place] | [phone] | | [facility] | | [address] | | | - LABORATORY | | [...] [address] | [place] | [phone] | | [facility] | | [address] | | | - LABORATORY | | [...] [address] | [place] | [phone] | | [facility] | | [address] | | | - LABORATORY | | [...] ST. | [address] | [place], [place] | [phone] | | [facility] | | [address] | | | - LABORATORY | | [...] [address] | [place] | [phone] | | [facility] | | [address] | | | - LABORATORY | | [...] + | [facility] | [address] | [place] | [phone] | | [facility] | | [address] | | | - LABORATORY | | [...] | [facility] | | | [place] | RATE,ESTIMATED | | MEDICAL | | | | mL/min/1.54j3Jwhs than | | CENTER - | | [...] [address] | [place] | [phone] | | [facility] | | [address] | | | - LABORATORY | | [...] [address] | [place] | [phone] | | [facility] | | [address] | | | - LABORATORY | | [...] | | | | | | [employer] | | | | | [...] [address] | [place] | [phone] | | [facility] | | [address] | | | - LABORATORY | | [...] + | [facility] | [address] | [place] | [phone] | | [facility] | | [address] | | | - LABORATORY | | [...] + | [facility] | [address] | [place] | [phone] | | [facility] | | [address] | | | - LABORATORY | | [...] + | [facility] | [address] | [place] | [phone] | | [facility] | | [address] | | | - LABORATORY | | [...] | | | | | | [employer] | | | | | [...] + + | Performing | Address | City/State/[facility] | Phone Number | | Organization | | | | + + + + + | [facility] | [address] | [place] | [phone] | | [facility] | | [address] | | | - LABORATORY | | [...] | | | | FRANK VAUGHAN MD ([id number]) | | | | | | on [...] [address] | [place] | [phone] | | [facility] | | [address] | | | - LABORATORY | | [...] + + | Coronary artery disease involving wrangell coronary artery of wrangell heart with unstable | | angina pectoris (HCC) - Primary | + + | Morbid obesity with BMI of 40.0-44.9, adult ([facility]) | + + | Unstable angina ([facility]) Intermediate coronary syndrome | + + | Hypertriglyceridemia Pure hyperglyceridemia | + + | Diabetes mellitus ([facility]) Type II or unspecified type diabetes mellitus [...] | | | | | | | 1658-3927 Use NIGHT DOSE for | | | | | | | doses scheduled: HS, 3AM, | | | | | | | Nighttime 7006-1972, | | | | | | + [...] | | | | First dose on [facility] 06/14/16 at | | AM PDT [...] Administer | | | over 1 Hours, SEVERITY OF ILLNESS COORDINATOR, Starting | | | Bekah 06/14/16 at 0809, For 1 dose, | | | Begin 1 hour prior to procedure, | | | | | + +---+ | | | + +---+ documented in this encounter
--- OUTSIDE RECORDS SUMMARY | ~2020-05-12 | XMS | Encounter Summary ---
Demographics + + + | Address | [address] | | | [place] [address] | + + + | Home Phone | | + + + | Preferred Language | Unknown | + + + | Marital Status | Legally | + + + | Restorationism Affiliation | 1041 | + + + | Race | or | + + + | Ethnic Group | Not or | + + + Author + + + | Author | [facility] | | | and [place] | + + + | Organization | [facility] | | | and [place] | + + + | Address | Unknown | + + + | Phone | Unavailable | + + + Support + + + + + | Name | Relationship | Address | Phone | + + + + + | Jenniffer Chew | ECON | [address] | | | | | [address] [place] | | | | | [address] | | + + + + + Care Team Providers + +------+ + | Care Locomotive Repairer Diesel Name | Role | Phone | + +------+ + | Kaylan Montaño PA-C | PCP | | + +------+ + Encounter Details +--------+ + + + + | Date | Type | Department | Care Team | Description | +--------+ + + + + | 06/14/ | Hospital | [facility] GENERIC IP | Conversion | Diagnosis unknown | | 2016 | Encounter | [address] | Transaction, | | | | | [address] | Provider Unknown | | | | | [place], [place] | [phone] | | | | | [address] | | | | | | [phone] | | | +--------+ + + + [...] + +--------+ + + + | CV CARDIAC PROCEDURE | Routin | 06/14/2016 | | Results for this | | | e | 4:38 PM | | procedure are in the | | | | PDT | | results section. | + +--------+ + + + documented in this encounter Results CV CARDIAC PROCEDURE (06/14/2016 4:38 PM PDT) + + | Specimen | + + | | + + + + + | Narrative | Performed At | + + + | This is a non-reportable procedure without a radiologist report and | | | is used for image storage only | | + + + + + | Procedure Note | + + | David Canales - 04/15/2019 3:07 PM PDT This is a non-reportable procedure | | without a radiologist report and isused for image storage only | + + documented in this encounter Visit Diagnoses + + | Diagnosis | + + | Diagnosis unknown Other unknown and unspecified cause of morbidity or mortality | + + documented in this encounter"
--- OUTSIDE RECORDS SUMMARY | ~2020-05-12 | XMS | Encounter Summary ---
Demographics + + + | Address | [address] | | | [place] [address] | + + + | Home Phone | | + + + | Preferred Language | Unknown | + + + | Marital Status | Legally | + + + | Episcopal Affiliation | 1041 | + + + | Race | or | + + + | Ethnic Group | Not or | + + + Author + + + | Author | [facility] | | | and [place] | + + + | Organization | [facility] | | | and [place] | + + + | Address | Unknown | + + + | Phone | Unavailable | + + + Support + + + + + | Name | Relationship | Address | Phone | + + + + + | Jenniffer Chew | ECON | [address] | | | | | [address] | | | | | [address] | | + + + + + Care Team Providers + +------+ + | Care Verifying Machine Operator Name | Role | Phone | + +------+ + PCP | Unavailable | + +------+ + Encounter Details +--------+ + + + + | Date | Type | Department | Care Team | Description | +--------+ + + + + | 05/27/ | Hospital | [facility] | Sanjiv Hernandez MD | | | 2000 | Encounter | MED CTR GENERIC OP | [address], [place] | | | | | CONV DEPT [address] | [address] [place], [place] | | | | | [place], | [address] | | | | | [place] [address] | | | | | | [phone] | | | +--------+ + + + [...]
--- OUTSIDE RECORDS SUMMARY | ~2020-05-12 | XMS | Encounter Summary ---
Demographics + + + | Address | [address] | | | [place] [address] | + + + | Home Phone | | + + + | Preferred Language | Unknown | + + + | Marital Status | Legally | + + + | Jew Affiliation | 1041 | + + + | Race | or | + + + | Ethnic Group | Not or | + + + Author + + + | Author | [facility] | | | and [place] | + + + | Organization | [facility] | | | and [place] | + + + | Address | Unknown | + + + | Phone | Unavailable | + + + Support + + + + + | Name | Relationship | Address | Phone | + + + + + | Jenniffer Chew | ECON | [address] | | | | | [address] | | | | | [address] | | + + + + + Care Team Providers + +------+ + | Care Railroad Inspector Name | Role | Phone | + +------+ + | Kaylan Montaño PA-C | PCP | | + +------+ + Encounter Details +--------+ + + + + | Date | Type | Department | Care Team | Description | +--------+ + + + + | 03/31/ | Orders Only | [facility] | Provider, | | | 2019 | | SYSTEM GENERIC OP | [address] | | | | | CONVERSION [address] | [address] | | | | | [address] [place], [place] | [place] [address] | | | | | [address] | | | | | | [phone] | | | +--------+ + + + [...]
--- OUTSIDE RECORDS SUMMARY | ~2020-05-12 | XMS | Encounter Summary ---
Demographics + + + | Address | [address] | | | [place] [address] | + + + | Home Phone | | + + + | Preferred Language | Unknown | + + + | Marital Status | Legally | + + + | Moravian Affiliation | 1041 | + + + | Race | or | + + + | Ethnic Group | Not or | + + + Author + + + | Author | [facility] | | | and [place] | + + + | Organization | [facility] | | | and [place] | + + + | Address | Unknown | + + + | Phone | Unavailable | + + + Support + + + + + | Name | Relationship | Address | Phone | + + + + + | Jenniffer Chew | ECON | [address] | | | | | [address] | | | | | [address] | | + + + + + Care Team Providers + +------+ + | Care Hops Farmworker Name | Role | Phone | + +------+ + | Kaylan Montaño PA-C | PCP | | + +------+ + Encounter Details +--------+ + + + + | Date | Type | Department | Care Team | Description | +--------+ + + + + | 06/14/ | Hospital | [facility] | Conversion | Diagnosis unknown | | 2016 | Encounter | [address] | Transaction, | | | | | [address] | Provider Unknown | | | | | [place], [place] | [phone] | | | | | [address] | | | | | | [phone] | | | +--------+ + + + [...]
--- OUTSIDE RECORDS SUMMARY | ~2020-05-12 | XMS | Clinical Summary ---
Demographics + + + | Address | [address] | | | [place] [address] | + + + | Home Phone | | + + + | Preferred Language | Unknown | + + + | Marital Status | Legally | + + + | Pentecostal Affiliation | 1041 | + + + | Race | or | + + + | Ethnic Group | Not or | + + + Author + + + | Author | [facility] | | | and [place] | + + + | Organization | [facility] | | | and [place] | + + + | Address | Unknown | + + + | Phone | Unavailable | + + + Support + + + + + | Name | Relationship | Address | Phone | + + + + + | Jenniffer Chew | ECON | [address] | | | | | [address] | | | | | [address] | | + + + + + Care Team Providers + +------+ + | Care Professor Of Latin American Studies Name | Role | Phone | + +------+ + | Kaylan Montaño PA-C | PCP | | + +------+ + Allergies No Known Allergies Medications + + + +---------+------+------+-------+ | Medication | Sig | Dispensed | Refills | Star | End | Statu | | | | | | t | Date | s | | | | | | Date | | | + + + +---------+------+------+-------+ | lisinopril | Take 40 mg by mouth | | 0 | | | Activ | | (PRINIVIL,ZESTRIL) | Daily. | | | | | e | | 40 MG tablet | | | | | | | + + + +---------+------+------+-------+ | insulin glargine | Inject 50 Units | | 0 | | | Activ | | (LANTUS SOLOSTAR) | under the skin 2 | | | | | e | | 100 units/mL | times daily. | | | | | | | injection (pen) | | | | | | | + + + +---------+------+------+-------+ | cholecalciferol | Take by mouth | | 0 | | | Activ | | (VITAMIN D-3) 5000 | Daily. | | | | | e | | units TABS | | | | | | | + + + +---------+------+------+-------+ | cyanocobalamin | Take 500 mcg by | | 0 | | | Activ | | (VITAMIN B-12) 500 | mouth Daily. | | | | | e | | mcg tablet | | | | | | | + + + +---------+------+------+-------+ | hydrophilic | Apply 120 g | | 0 | | | Activ | | ointment | topically Daily. | | | | | e | + + + +---------+------+------+-------+ | insulin aspart | Inject 22 Units | | 0 | | | Activ | | (NOVOLOG PENFILL) | under the skin 3 | | | | | e | | 100 units/mL | times daily (before | | | | | | | injection cartridge | meals). | | | | | | + + + +---------+------+------+-------+ | metFORMIN | Take 1,000 mg by | | 0 | | | Activ | | (GLUCOPHAGE) 1000 MG | mouth 2 times daily | | | | | e | | tablet | (with breakfast & | | | | | | | | dinner). | | | | | | + + + +---------+------+------+-------+ | aspirin 81 mg EC | Take 81 mg by mouth | | 0 | | | Activ | | tablet | Daily. | | | | | e | + + + +---------+------+------+-------+ | rosuvastatin | Take 20 mg by mouth | | 0 | | | Activ | | (CRESTOR) 20 mg | nightly. | | | | | e | | tablet | | | | | | | + + + +---------+------+------+-------+ | atorvaSTATin | Take 1 tablet by | | 0 | 10/2 | | Activ | | (LIPITOR) 80 MG | mouth nightly. | | | 8/20 | | e | | tablet | | | | 16 | | | + + + +---------+------+------+-------+ | clopidogrel | Take 1 tablet by | | 0 | 10/2 | | Activ | | (PLAVIX) 75 mg | mouth daily. | | | 8/20 | | e | | tablet | | | | 16 | | | + + + +---------+------+------+-------+ | insulin detemir | Inject 13 Units into | | 0 | 10/2 | | Activ | | (LEVEMIR FLEXTOUCH) | the skin 2 (two) | | | 8/20 | | e | | 100 units/mL | times daily. | | | 16 | | | | injection (pen) | | | | | | | + + + +---------+------+------+-------+ | insulin lispro | Inject 5 Units into | | 0 | 10/2 | | Activ | | (HUMALOG) 100 | the skin 3 (three) | | | 8/20 | | e | | units/mL injection | times daily before | | | 16 | | | | (vial) | meals. | | | | | | + + + +---------+------+------+-------+ | metoprolol | Take 1 tablet by | | 0 | 12/0 | | Activ | | tartrate (LOPRESSOR) | mouth 2 (two) times | | | 6/20 | | e | | 50 mg tablet | daily. | | | 16 | | | + + + +---------+------+------+-------+ | lisinopril | Take 1 tablet by | | 0 | 12/0 | | Activ | | (PRINIVIL, ZESTRIL) | mouth daily. | | | 6/20 | | e | | 5 mg tablet | | | | 16 | | | + + + +---------+------+------+-------+ | cyanocobalamin | Take 500 mcg by | | 0 | | | Activ | | (VITAMIN B-12) 500 | mouth 2 (two) times | | | | | e | | mcg tablet | daily. | | | | | | + + + +---------+------+------+-------+ Active Problems + + + | Problem | Noted Date | + + + | Coronary artery disease involving coronary bypass graft without | 07/10/2016 | | angina pectoris | | + + + | Obesity due to excess calories | 07/10/2016 | + + + | Type 2 diabetes mellitus without complication | 07/10/2016 | + + + | Diabetes mellitus | 06/14/2016 | + + + + + | Last Assessment & Plan: - Continue bid glargine, insulin | | sliding scale, and short-acting insulin before meals | + + + + + | Hyperlipidemia | 06/14/2016 | + + + + + | Last Assessment & Plan: - Continue statin, check lipids in AM | + + + + + | Obstructive sleep apnea | 06/14/2016 | + + + + + | Last Assessment & Plan: - Untreated, and has not had sleep | | study, but almost certainly has HUNTER given his morbid obesity, his | | RBBB, and chronic snoring- Consider overnight sleep ox study | | while hospitalized to see if he becomes hypoxic while sleeping | + + + + + | Essential hypertension | 06/14/2016 | + + + + + | Last Assessment & Plan: - Continue outpatient lisinopril, | | start metoprolol at low dose 25 mg bid | + + + + + | Morbid obesity with BMI of 40.0-44.9, adult | 06/14/2016 | + + + + + | Last Assessment & Plan: - BMI of 43, would benefit from | | weight loss | + + + + + | Unstable angina | 06/14/2016 | + + + + + | Last Assessment & Plan: - Presents with progressive, | | worsening substernal chest pain with exertion relieved with rest, | | and he has every risk factor for CAD (family history, | | hyperlipidemia, smoking history, hypertension, diabetes, obesity, | | HUNTER)- Troponin slightly elevated in [place], and discussed | | with Dr. Ochoa of cardiology, will plan for angiogram while | | hospitalized, pretest probability of CAD very high, NPO at | | midnight- Daily aspirin- No active chest pain, but will start | | enoxaparin if he has chest pain | + + + + + | Hypertriglyceridemia | 06/14/2016 | + + + | Coronary artery disease involving [place] coronary artery of | 06/14/2016 | | [place] heart with unstable angina pectoris | | + + + Family History + + +------+ + | Medical History | Relation | Name | Comments | + + +------+ + | Heart disease | Father | | | + + +------+ + | High cholesterol | Father | | | + + +------+ + | Hypertension | Father | | | + + +------+ + | Stroke | Father | | | + + +------+ + + +------+ + + | Relation | Name | Status | Comments | + +------+ + + | Father | | | heart disease, Hypertension,Hyperlipidemia | | | | (Age | | | | | 62) | | + +------+ + + | Father | | | | + +------+ + + | Mother | | | unknown | | | | (Age | | | | | 83) | | + +------+ + + Social History + +-------+ +--------+------+ [...] on file | | + + + Last Filed Vital Signs + + + + + | Vital Sign | Reading | Time Taken | Comments | + + + + + | Blood Pressure | 130/72 | 07/31/2016 2:13 PM | | | | | PST | | + + + + + | Pulse | 88 | 07/31/2016 2:13 PM | | | | | PST | | + + + + + | Temperature | 36.2 C (97.2 F) | 07/17/2016 11:15 AM | | | | | PST | | + + + + + | Respiratory Rate | 21 | 07/31/2016 2:13 PM | | | | | PST | | + + + + + | Oxygen Saturation | 96% | 06/14/2016 6:15 PM | | | | | PDT | | + + + + + | Inhaled Oxygen | - | - | | | Concentration | | | | + + + + + | Weight | 130.5 kg (287 lb | 07/31/2016 2:13 PM | | | | 11.2 oz) | PST | | + + + + + | Height | 175.3 cm (5' 9") | 07/31/2016 2:13 PM | | | | | PST | | + + + + + | Body Mass Index | 42.49 | 07/31/2016 2:13 PM | | | | | PST | | + + + + + Plan of Treatment + + +-------+ + | Health Maintenance | Due Date | Last | Comments | | | | Done | | + + +-------+ + | Vaccine: | | | | | Dtap/Tdap/Td (1 - | 3 | | | | Tdap) | | | | + + +-------+ + | Vaccine: Zoster (1 | | | | | of 2) | 4 | | | + + +-------+ + | Vaccine: | | | | | Pneumococcal 65+ (1 | 9 | | | | of 1 - PPSV23) | | | | + + +-------+ + | Vaccine: Influenza | | | | | (#1) | 0 | | | + + +-------+ + Implants + +------+--------+ +--------+--------+--------+ | Implanted | Type | Area | Manufacture | Device | Shelf | Model | | | | | r | | Expira | / | | | | | | Identi | tion | Serial | | | | | | fier | Date | / Lot | + +------+--------+ +--------+--------+--------+ | Plate [facility] Acute [id number] - | | N/A: | ACUTE | | | [id number] | | Sn/AImplanted: Qty: 3 on | | Sternu | INNOVATIONS | | | | | 06/15/2016 by Kendall Chaney, | | m | LLC - RANJEET | | | | | MD | | | | | | | + +------+--------+ +--------+--------+--------+ Results Not on filefrom Last 3 Months Insurance + +--------+ +--------+-------+---------+--------+ | Payer | Benefi | Subscriber | Effect | Phone | Address | Type | | | t Plan | ID | adrian | | | | | | / | | Dates | | | | | | Group | | | | | | + +--------+ +--------+-------+---------+--------+ | BCBS | BCBS | [id number] | 09/30/19 | | | PPO | | | FEDERA | | 16-Pre | | | | | | L FEP | | sent | | | | + +--------+ +--------+-------+---------+--------+ | [employer] | IHS | [id number] | | | | Indemn | | SERVICE | YELLOW | | 016-Pr | | | ity | | | HAWK | | esent | | | | + +--------+ +--------+-------+---------+--------+ + +--------+ +--------+ + + | Guarantor Name | Accoun | Relation to | Date | Phone | Billing Address | | | t Type | Patient | of | | | | | | | | | | + +--------+ +--------+ + + | Quinton Renae | Person | Self [birth year] | [address] | | | al/Fam | | 1955 | [phone] | [address] [place], | | | [place] | | | 4 (Home) | [place] [address] | | | | | | [phone] | | | | | | | [phone] | | | | | | | (Work) | | + +--------+ +--------+ + + | Quinton Renae | Person | Self [birth year] | [address] | | | al/Fam | | 1955 | [phone] | [address] [place], | | | [place] | | | 4 (Home) | [place] [address] | + +--------+ +--------+ + + Advance Directives + + + + + | Type | Date Recorded | Patient | Explanation | | | | High School Admissions Representative | | + + + + + | Power of | | | | | Ux Researcher | | | | + + + + + | Advance | | | | | Directive | | | | + + + + + + + + + + | Code Status | Date | Date | Comments | | | Activated | Inactivated | | + + + + + | Full Code | 06/13/2016 | 06/14/2016 | | | | 10:24 PM | 8:28 PM | | + + + + +
--- OUTSIDE RECORDS SUMMARY | ~2020-05-12 | XMS | Clinical Summary ---
Demographics + + + | Address | [address] | | | [place] [address] | + + + | Home Phone | | + + + | Preferred Language | Unknown | + + + | Marital Status | Legally | + + + | Oriental Orthodox Affiliation | 1041 | + + + | Race | or | + + + | Ethnic Group | Not or | + + + Author + + + | Author | [facility] | | | and [place] | + + + | Organization | [facility] | | | and [place] | + + + | Address | Unknown | + + + | Phone | Unavailable | + + + Support + + + + + | Name | Relationship | Address | Phone | + + + + + | Jenniffer Chew | ECON | [address] | | | | | [address] | | | | | [address] | | + + + + + Care Team Providers + +------+ + | Care Teacher Of The Deaf/Hard Of Hearing Name | Role | Phone | + [...] | | HUNTER)- Troponin slightly elevated in [place], and discussed | | with Dr. Ochoa [...] + + | Coronary artery disease involving [place] coronary artery of | 06/14/2016 | | [place] heart with unstable angina pectoris | | [...] Lot | + +------+--------+ +--------+--------+--------+ | Plate [facility] Acute [id number] - | | N/A: | ACUTE | | | [id number] | | Sn/AImplanted: Qty: 3 on | [...] +--------+ +--------+-------+---------+--------+ | BCBS | BCBS | [id number] | 09/30/19 | | | PPO | | | FEDERA | | 16-Pre | | | | | | L FEP | | sent | | | | + +--------+ +--------+-------+---------+--------+ | [facility] | IHS | [id number] | | | | Indemn | | [...] | | | 4 (Home) | [place] [address] | | | | | | [phone] [...] | | | 4 (Home) | [place] [address] | + +--------+ +--------+ + + Advance Directives + + + + + | Type | Date Recorded | Patient | Explanation | | | | Naphthalene Operator | | + + + + + | Power of | | | | | Bead Maker | | | | + + + [...]
[~2020-05-12 14:16] MED LIST changes: +DOXYCYCLINE HY100 MG PO; +GLUCOPHAGE500 MG PO; +KEFLEX500 MG PO; +LIPITOR80 MG PO; +METOPROLOL TART50 MG PO; +NORVASC5 MG PO
--- OUTSIDE RECORDS SUMMARY | 2020-05-12 14:20 | XMS ---
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 Dioni has no Care Guidelines for this patient. [facility] VIS[facility] COUNT (12 MO[address] [facility] NOTE: Visits indicate total known visits. ED/C VISIT TRACKING (12 MO.) 05/12/2020 14:[address] [facility] [place] TYPE: Emergency COMPLAINT: - POSSIBLE INFECTION 04/24/2020 22:[address] [facility] [place] TYPE: Emergency COMPLAINT: - LEG SPASMS DIAGNOSES: - Type 2 diabetes mellitus with diabetic neuropathy, unspecifie - Essential (primary) hypertension - correction (current) use of insulin - correction (current) use of aspirin - Other mcfp (current) drug therapy - Paresthesia of skin INPATIENT VISIT TRACKING (12 MO.) No inpatient visits to display in this time frame [email or web address]
[2020-05-14] MEDS ORDERED: LANTUS100 UNITS/ SUB-Q (09:54)
[2020-05-14] MEDS ORDERED: AMOX TR-K CLV1 EACH PO (09:54)
[2020-05-15] MEDS ORDERED: LISINOPRIL20 MG PO (09:57)
[2020-05-15] MEDS ORDERED: AMLODIPINE BESYL5 MG PO (09:58)
[2020-05-15] MEDS ORDERED: CEPHALEXIN500 MG PO (09:58)
== END 2020-05-14 12:55 | disposition home or self-care (01) | DRG 639 ==
LOC: ED 14:16 → MS 16:46
PROVIDERS: ADMIT Internal Medicine; ATTEND Internal Medicine
DX: E11.628 Type 2 diabetes mellitus with other skin complications (principal); E11.65 Type 2 diabetes mellitus with hyperglycemia; L03.032 Cellulitis of left toe; E11.40 Type 2 diabetes mellitus with diabetic neuropathy, unspecified; I10 Essential (primary) hypertension; E78.5 Hyperlipidemia, unspecified; I25.10 Atherosclerotic heart disease of native coronary artery without angina pectoris; Z95.1 Presence of aortocoronary bypass graft; Z79.899 Other long term (current) drug therapy; Z79.82 Long term (current) use of aspirin; Z79.4 Long term (current) use of insulin
CPT/HCPCS: 36415; 73630; 80048; 80053; 81001; 83605; 84550; 85025; 99285-25; J0295; J1815; J2920; J3370; J7030; J7060

== ENCOUNTER 2020-05-15 09:43 | Emergency (ER) | payer MEDICARE, OTHER ==
[~2020-05-15] VITALS: Ht 175.3 cm; Wt 111.6 kg
[~2020-05-15 09:43] MED LIST changes: +AMOX TR-K CLV1 EACH PO
--- OUTSIDE RECORDS SUMMARY | 2020-05-15 09:46 | XMS ---
PreManage Notification: TR CABALLERO Security Traffic [address] Magistrate Events No recent Security Events currently on file CRITERIA MET - [facility] - 2 Visits in 30 Days CARE PROVIDERS Name Unknown Case Management 05/13/2020-Current PHONE: [phone] Dioni has no Care Guidelines for this patient. Care History Medical/Surgical 05/13/2020 [facility] - PATIENT IS [facility] ELIGIBLE, \T\middot;\T\nbsp; PLEASE REFER PATIENT TO [facility] FOR NON EMERGENT MEDICAL NEEDS. \T\middot;\T\nbsp; [facility] CAN SEE PATIENTS SAME DAY FOR APTS IF PATIENT CALLS FIRST THING IN THE MORNING. E.D. VISIT COUNT (12 MO.) 3 [facility] TOTAL 3 NOTE: Visits indicate total known visits. ED/UCC VISIT TRACKING (12 MO.) 05/15/2020 09:44 [facility] [place] TYPE: Emergency COMPLAINT: - LT GREAT TOE PAIN 05/12/2020 14:17 [facility] [place] TYPE: Emergency COMPLAINT: - POSSIBLE INFECTION 04/24/2020 22:19 [facility] [place] TYPE: Emergency COMPLAINT: - LEG SPASMS DIAGNOSES: - Type 2 diabetes mellitus with diabetic neuropathy, unspecifie - Essential (primary) hypertension - penitentiary (current) use of insulin - penitentiary (current) use of aspirin - Other jail (current) drug therapy - Paresthesia of skin INPATIENT VISIT TRACKING (12 MO.) 05/12/2020 16:46 [facility] [place] TYPE: Medical Surgical COMPLAINT: - LEFT GREAT TOE CELLULITIS, HYPERGLYCEMIA [email or web address]
[2020-05-15] MEDS ORDERED: LISINOPRIL20 MG PO (09:57)
[2020-05-15] MEDS ORDERED: AMLODIPINE BESYL5 MG PO (09:58)
[2020-05-15] MEDS ORDERED: CEPHALEXIN500 MG PO (09:58)
== END 2020-05-15 10:54 | disposition home or self-care (01) ==
LOC: ED 09:43
DX: S90.422A Blister (nonthermal), left great toe, initial encounter (principal); L03.032 Cellulitis of left toe; X58.XXXA Exposure to other specified factors, initial encounter; E11.40 Type 2 diabetes mellitus with diabetic neuropathy, unspecified; I10 Essential (primary) hypertension; Z87.891 Personal history of nicotine dependence; Z79.899 Other long term (current) drug therapy; Z79.4 Long term (current) use of insulin
CPT/HCPCS: 99283

== ENCOUNTER 2020-09-22 14:32 | Inpatient (IN) | payer MEDICARE, OTHER ==
[~2020-09-22] VITALS: Ht 175.3 cm; Wt 113.3 kg
[~2020-09-22 14:32] MED LIST changes: +AMLODIPINE BESYL5 MG PO; +CEPHALEXIN500 MG PO
--- NOTE | 2020-09-22 18:45 | NUR ---
PATIENT ARRIVED TO THE CCU ROOM 128 VIA STRETCHER WITH JOE HAMMOND. PATIENT STOOD AND TRANSFERED HIMSELF TO THE BED. THIS RN, RAMIREZ MULLINS, AND ASHANTI STUDENT RN IN THE ROOM TO ADMIT PATIENT. PATIENT PLEASANT UPON ARIVAL.
--- NOTE | 2020-09-22 19:08 | NUR ---
ADMITTED PATIENT AND CHECKED IN. PATIENT ALERT AND ORIENTED. PATIENT BREATH SOUNDS CLEAR AND BOWEL TOENS ACTIVE. PATIENT EATING HIS HIS DINNER AT THIS TIME. PATIENT STATES "I HAVE AN ULCER ON MY LEFT BIG TOE THAT IS BEING TREATED AT THE HOSPITAL BY DR. CEE". WILL FOLLOW-UP ON WOUND CARE ORDERES. PASSED ON TO SATELLITE DISH INSTALLER TO PLEASE REVIEW SKIN ASSESSMENT AND PLACE PICTURES IN THE CHART. NO OTHER QUESTIONS AT THIS TIME. PATIENT RESTING IN BED EATING. CALL LIGHT IN REACH. SATELLITE DISH INSTALLER REPORT GIVEN.
--- NOTE | 2020-09-22 20:02 | NUR ---
PATIENT FINISHED 100% OF HIS DINNER. DENIES ANY CONCERNS. REPORTS NOT SLEEPING WELL AND IS READY FOR BED. EVENING MEDS GIVEN PER ORDER. IV FLUIDS PER ORDER, SITE WNL. DILT DRIP AT 7.5 MG/HR. HR 100-110. ADEQUATE BP. IV SITE WNL. IV MAG 2G STARTED PER ORDERS. PATIENT IS AAOX4. LUNGS ARE CLEAR, ROOM AIR. NO GI UPSET. PATIENT IS DUE TO VOID. URNAL AT BEDSIDE. CALL LIGHT IN REACH.
--- NOTE | 2020-09-22 21:06 | NUR ---
PROVIDED UPDATE TO WHILE HE WAS IN THE UNIT. ORDERS TO SL PATIENT. 2ND DOSE IV MAG INFUSING AT THIS TIME. PATIENT SLEEPING SOUNDLY. WAKES WHEN RN ENTERS ROOM. HR 70-80'S A. FLUTTER. TITRATED DILT TO 5 MG/HR.
--- NOTE | 2020-09-22 22:57 | NUR ---
PATIENT SLEEPING SOUNDLY. WOKE EASILY TO VOICE. ENCOURAGED PATIENT TO REPOSITION IN BED. IV SITES WNL X2. BP CUFF SWITCHED TO RIGHT ARM. DILT DRIP CONTINUES AT 5 MG/HR. HR 70-80'S. ADEQUATE BP.
--- NOTE | 2020-09-22 23:50 | NUR ---
PATIENT UP TO THE BEDSIDE TO VOID. PATIENT STEADY ON HIS FEET. HR INCREASED FROM 80'S TO 100 WITH ACTIVITY. BACK TO 80-90'S AT REST. ASSISTED PATIENT TO REPOSITION. TITRATED DILT DRIP TO 2.5 MG/HR. PROVIDED PATIENT SF PUDDING SNACK PER REQUEST. VS STABLE. PATIENT DENIED ANY FURTHER NEEDS. CALL LIGHT IN REACH.
--- NOTE | 2020-09-23 02:00 | NUR ---
SCHEDULED MEDS PROVIDED BY RN TRAUMA, VASQUEZ HAMMOND. DILTIAZEM DRIP STOPPED AT THIS TIME. HR CONSISTENTLY IN 70-80'S. A. FLUTTER.
--- NOTE | 2020-09-23 03:27 | NUR ---
PATIENT UP TO BEDSIDE TO USE THE URNAL. STEADY ON HIS FEET. ASSISTED PATIENT TO STRAIGHTEN OUT MONITOR CORDS AND THE BED LINEN. PAITNET REPORTS SLEEPING WELL AND FEELING LESS SOB WHEN GETTING UP. VS STABLE. HR 80-90'S WITH ACTIVITY. 70'S AT REST.
--- NOTE | 2020-09-23 06:42 | NUR ---
PATIENT RESTING IN BED. BP CUFF ADJUSTED FOR READING. VS STABLE. HR 90-100. IRREGULAR. PATIENT DENIES ANY CONCERNS. REQUEST COFFEE. DECAF COFFEE PROVIDED.
--- NOTE | 2020-09-23 07:30 | NUR ---
PATIENT SHIFT REPORT RECIEVED FROM DIRECTOR OF DEVELOPMENT AND MARKETING RN. PATIENT RESTING IN BED AT THIS TIME. CALL LIGHT IN REACH. PATIENT CALLS APPROPRIATELY. WILL CONTINUE TO CLOSELY MONITOR.
--- NOTE | 2020-09-23 08:00 | NUR ---
PATIENT UP TO URINATE AND HIS HR INCREASED TO 125 WITH ACTIVITY. PATIENT NOW RESTING IN THE CHAIR WITH HR 100-120. WILL CLOSELY MONITOR. PATIENT DOES NOT FEEL THE TACHYCARDIA. PATIENT DENIES SOB. BREAKFAST ORDERED. WILL CONTINUE TO CLOSELY MONITOR.
[2020-09-23] MEDS ORDERED: CELECOXIB200 MG PO (08:08)
[2020-09-23] MEDS ORDERED: ATORVASTATIN CA80 MG PO (08:08)
[2020-09-23] MEDS ORDERED: METFORMIN HCL500 M1 PO (08:10)
[2020-09-23] MEDS ORDERED: LANTUS SOL100 UNIT/1 SUB-Q (08:17)
[2020-09-23] MEDS ORDERED: VITAMIN D3125 MC1 PO (08:21)
[2020-09-23] MEDS ORDERED: ADULT ASPIRIN R81 MG PO (08:25)
[2020-09-23] MEDS ORDERED: CEPHALEXIN500 MG PO (09:23)
--- NOTE | 2020-09-23 09:30 | NUR ---
PATIENT UP EATING BREAKFAST. STAFF WILL BE DOWN TO DO AN ECHO. NO OTHER NEEDS AT THIS TIME. WILL CONTINUE TO CLOSELY MONITIOR.
[2020-09-23] MEDS ORDERED: TERBINAFINE HC250 MG PO (09:42)
[2020-09-23] MEDS ORDERED: AMLODIPINE BESYL5 MG PO (09:42)
[2020-09-23] MEDS ORDERED: NOVOLOG FL100 UNIT/1 SUB-Q (09:43)
--- NOTE | 2020-09-23 09:44 | NUR ---
MED REC COMPLETE
--- NOTE | 2020-09-23 10:30 | NUR ---
PATIENT RESTARTED ON CARDIZEM GTT AT 2.5MLS/HR D/T PATIENTS HR PER MD CHUA. WILL GIVE DOSE OF METOPROLOL AND MONITOR PATIETNS HR.
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
--- NOTE | 2020-09-23 11:56 | NUR ---
PT SITTING IN CHAIR, ALERT AND ORIENTED. PT SAID HE REMEMBERS ME FROM PREVIOUS VISIT. HE ALSO SAID THAT THIS AFIB IS SOMETHING HE SAID IS NEW. FEELS FINE, HE THEN BEGAN TO SHARE WITH ME HIS SPIRITUAL JOURNEY, LISTS ALEVISM HIS [facility] CHOICE, AND WOULD LIKE STRATEGIC DEBRIEFING SPECIALIST TO VISIT. INFORMED PRIESTS, GAVE BLESSING.
--- NOTE | 2020-09-23 12:03 | NUR ---
Left note requesting RN fax rx and note to [facility] [phone] when documentation completed for walker.
--- NOTE | 2020-09-23 12:31 | NUR ---
PATIENTS HR 80-100 NOW AT THIS TIME AFTER RECIEVING METOPROLOL. PATIENT REMAINS ON CARDIZEM GTT AT 2.5MLS/HR. WILL CONTINUE TO CLOSELY MONITOR. LUNCH AT THE BEDSIDE. INSULIN GIVEN. ASSESSMENT REMAINS UNCHANGED. WILL CONTINUE TO CLOSELY MONITOR.
--- NOTE | 2020-09-23 13:00 | NUR ---
PATIENT TURNED OFF CARDIZEM GTT D/T HEART RATE 70-90'S. WILL MONITOR HR CHANGES.
--- NOTE | 2020-09-23 15:30 | NUR ---
PATIENT RESTING UP IN THE CHAIR. PATIENT REVIWED MEDICATIONS WITH TR IN PHARMACY AT THE BEDSIDE. PATIENT WOULD LIKE A SHOWER. WILL PREP SHOWER AND ASSIST PATIENT INTO SHOWER.
--- NOTE | 2020-09-23 15:51 | EKG ---
[facility] [address] [place] [address] Signed Wide QRS tachycardia Left axis deviation Right bundle branch block Abnormal ECG When compared with ECG of 13-JUN-2016 16:11, Wide QRS tachycardia has replaced Sinus rhythm Vent. rate has increased BY 55 BPM Confirmed by JAY CHUA DO ([id number]) on 09/23/2020 3:51:39 PM Electronically Signed By: JAY CHUA DO 09/23/20 1551 PATIENT NAME: TR CABALLERO Electrocardiogram DATE OF : 53 PHYSICIAN: JAY CHUA DO REPORT #: [id number] REPORT IS CONFIDENTIAL AND NOT TO BE RELEASED WITHOUT AUTHORIZATION
--- NOTE | 2020-09-23 16:00 | NUR ---
PATIENT PLACED ON TELEMETRY TO ALLOW PATIENT TO HAVE A SHOWER. PATIENT WALKED FROM ROOM 128 TO 126 AND DENIED SOB. PATIENTS HR HIGH WAS 105. PATIENT SHOWERED ON HIS OWN AFTER STAFF INITIALLY SET UP THE SHOWER AND ASSISTED PATIENT IN THE BEGINNING. PATIENT ABLE TO WALK BACK TO HIS ROOM WITH NO ISSUES. PATIENT STATES "I FEEL MUCH BETTER". PATIENT DENEIS SOB DURING AMBULATION AND AFTER SHOWER. PATIENT DENIES DIZZINESS. PATIENTS HR 70-80'S WITH REST AND 90-105 WITH ACTIVITY. REMOVED TOE DRESSING. WILL ALLOW TO BE OPEN TO AIR TO DRY AND THEN WILL RE-DRESS SITE PER ORDERS.
--- NOTE | 2020-09-23 17:00 | NUR ---
PATIENTS BLOOD SUGAR IS 160. RECENTLY PATIENTS BLOOD SUGAR HAS BEEN 300-400'S AT HOME. PATIENT FEELS LOW AT THIS LEVEL. GAVE PATIENT AN ENSURE UNTIL DINNER ARRIVED. PATIENT TOELRATING WELL. PUT A NEW DRESSING ON PATIENTS LEFT BIG TOE PER ORDERS. PATIENTS TOE LOOKS GOOD. NOTED TO HAVE A CALLUSED AREA ON TOE. DOES NOT APPEAR TO BE OPEN. NO OTHER NEEDS WILL CONTINUE TO CLOSELY MONITOR.
--- NOTE | 2020-09-23 19:43 | NUR ---
SHIFT REPORT RECEIVED. PATIENT RESTING IN BED. REQUEST ASSISTANCE TO REMOVE HIS GOWN AND TURN THE TEMP DOWN IN HIS ROOM WHICH WAS DONE. PATIENT DENIED ANY OTHER NEEDS. HR 70-80'S WITH MINIMAL ACTIVITY.
--- NOTE | 2020-09-23 20:37 | NUR ---
DISCUSSED PATIENT'S BLOOD GLUCOSE OF 134 WITH . ORDERS TO CHANGE LANTUS ORDER BACK TO 35 UNITS BID FROM 45 UNITS BID. VERIFIED BY REPEAT BACK.
--- NOTE | 2020-09-23 20:51 | NUR ---
PATIENT PROVIDED WITH EVENING MEDS AND EDUCATION. PATIENT HAS MODERATE UNDERSTANDING. ACCU CHECK IS 134 PER PATIENT'S PERSONAL MONITOR WHICH WAS CALIBRATED ON DAYSHIFT. PATIENT REPORTS FEELING LOW. SNACK PROVIDED. DISCUSSED WITH MD. PATIENT PROVIDED WITH TYLENOL FOR GENRAL DISCOMFORT. LUNGS ARE CLEAR. TOLERATING ROOM AIR. VS STABLE. HR 80'S AND IRREGULAR. DRESSING ON LEFT GREAT TOE IS CDI. IV SITE SL, FLUSHED AND WNL. PATIENT IS ON TELE MONITORING. INDEPENDENT TO STAND AT BEDSIDE AND VOID. REPORTS HAVING A MODERATE SIZED BM AT SHIFT CHANGE. NO GI UPSET. LIGHTS DIMMED PER REQUEST. CALL LIGHT IN REACH.
--- NOTE | 2020-09-23 22:10 | NUR ---
pt ambualted to bathroom to void independently. assisted to replace tele leads. pt back to bed. call light in reach, side rails up x2. chamomile tea provided per request. denies other needs.
--- NOTE | 2020-09-23 23:45 | NUR ---
PATIENT REPORTS FEELING HIS BLOOD GLUCOSE IS LOW. HIS MONITOR READS 88 AND THE HOSPITAL ACCU CHECK SAYS 105. PATIENT PROVIDED WITH GRAMCRACKERS, A GRANOLA BAR AND REGULAR PUDDING. PATIENT IS ALERT AND ORIENTED. STATES "USUALLY IF I'M THIS LOW I FEEL SWEATY AND SHAKEY BUT I'M OKAY RIGHT NOW". [employer] CALLED FOR SNACK BOX.
--- NOTE | 2020-09-24 00:02 | NUR ---
PATIENT PROVIDED WITH SANDWICH BOX AND COTTAGE CHEESE. VS DONE. PATIENT'S BP IS SOFT, MAP GREATER THAN 65. PATIENT DENIES FEELING LIGHTHEADED. PATIENT SITTING UP IN BED EATING AND HOLDING FULL CONVERSATIONS. WILL CONTINUE TO MONIOTR.
--- NOTE | 2020-09-24 00:30 | NUR ---
PATIENT PREPARED FOR BED NOW. ASSISTED TO POSITION FOR COMFORT. HR 80'S AND IRREGULAR. PATIENT'S BLOOD GLUCOSE 150 PER HIS PERSONAL MONITOR SYSTEM. PATIENT FEELS BETTER AT THIS TIME. CALL LIGHT IN REACH.
--- NOTE | 2020-09-24 02:36 | NUR ---
PATIENT APPEARED TO BE SLEEPING SOUNDLY. WOKE WITH VOICE AND TOUCH. HR HAS BEEN 70'S DURING SLEEP. ADEQUATE BP AT THIS TIME. SCHEUDLED LOPRESSOR PROVIDED AND CARDIZEM HELD. WILL CONTINUE TO MONITOR.
--- NOTE | 2020-09-24 05:00 | NUR ---
PATIENT UP TO THE BATHROOM. PROVIDED WITH MOUTHWASH AND OTHER HYGEINE ESSENTIALS. HR 80-90 WITH ACTIVITY. PATIENT DENIES FEELING SOB WITH ACTIVITY. VS STABLE. LUNGS ARE CLEAR. DRESSING ON LEFT FOOT IS CDI.
--- NOTE | 2020-09-24 07:30 | NUR ---
REPORT RECIEVED, PATIENT SLEEPING NO DISTRESS NOTED.
--- NOTE | 2020-09-24 08:00 | NUR ---
WOKE FOR ASSESSMENT AND ACCUCHECK. ACCUCHECK-176. DENIES PAIN, NAUSEA. TALKED WITH PATIENT ABOUT POC FOR DAY, INDICATES UNDERSTANDING. WILL GIVE MEDICATIONS ORDERED. PATIENT IS VERY TALKATIVE THE MORNING.
--- NOTE | 2020-09-24 09:30 | NUR ---
AMBULATED TO BR TO VOID TO URINAL THEN TO CHAIR. IS FAIRLY STABLE ON FEET. DENIES PROBLEMS.
--- NOTE | 2020-09-24 10:30 | NUR ---
AMBULATED TO SHOWER USING WALKER. TOLERATED AMBULATION WELL. TELE OFF WHILE IN SHOWER.
--- NOTE | 2020-09-24 11:10 | NUR ---
pt given 400 mg po motrin for report of 7/10 chronic rt shoulder, neck, and back pain. pt also repositioned up in bed for comfort. pt able to order lunch at this time as well.
--- NOTE | 2020-09-24 11:15 | NUR ---
tolerated shower well.
--- NOTE | 2020-09-24 11:30 | NUR ---
dr. chua here to see patient, DR. CHUA IN ROOM WIT PATIENT APPROX HALF HOUR TALKING WITH HIM ABOUT DISCHARGE PLAN. PATIENT TO BE DISCHARGED TODAY.
[2020-09-24] MEDS ORDERED: METOPROLOL SUCC50 MG PO (11:58)
[2020-09-24] MEDS ORDERED: ELIQUIS5 MG PO (11:58)
[2020-09-24] MEDS ORDERED: LISINOPRIL2.5 MG PO (11:59)
[2020-09-24] MEDS ORDERED: DILTIAZEM ER180 MG PO (12:00)
--- NOTE | 2020-09-24 12:45 | NUR ---
ACCDIONICIO 277. TOTAL OF 12 UNITS OF HUMALOG INSULIN SQ GIVEN.
--- NOTE | 2020-09-24 13:20 | NUR ---
SITTING UP IN CHAIR TO EAT LUNCH.
--- NOTE | 2020-09-24 14:00 | NUR ---
took lunch well. PATIENT IS VERY TALKATIVE. DENIES PAIN, SHORTNESS OF BREATH DIZZINESS. MONITOR DC'D. IV SITES X 2 DC'D WITH CATH INTACT.
--- NOTE | 2020-09-24 14:20 | NUR ---
DISCHARGE INSTRUCTIONS GIVEN WITH PATIENT UNDERSTANDING
--- NOTE | 2020-09-24 14:40 | NUR ---
DISCHARGED VIA W/C ACCOMP BY RN. TO TRANSPORT PATIENT HOME.
== END 2020-09-24 14:40 | disposition home or self-care (01) | DRG 309 ==
LOC: ED 14:32 → CCU 17:12
PROVIDERS: ADMIT Student in an Organized Health Care Education/Training Program; ATTEND Student in an Organized Health Care Education/Training Program
DX: I48.91 Unspecified atrial fibrillation (principal); I50.20 Unspecified systolic (congestive) heart failure; Z20.822 Contact with and (suspected) exposure to COVID-19; E11.9 Type 2 diabetes mellitus without complications; I11.0 Hypertensive heart disease with heart failure; I25.10 Atherosclerotic heart disease of native coronary artery without angina pectoris; Z95.1 Presence of aortocoronary bypass graft; Z79.899 Other long term (current) drug therapy; Z79.4 Long term (current) use of insulin; Z79.1 Long term (current) use of non-steroidal anti-inflammatories (NSAID); Z79.82 Long term (current) use of aspirin
CPT/HCPCS: 36415; 71045; 80048; 80053; 81001; 83036; 83605; 83735; 83880; 84484; 85025; 93005; 93010; 93306; 96374; 96375; 96376; 97162; 99285-25; C9803; J0153; J1160; J1815; J3475; J7121; U0003

== ENCOUNTER 2020-10-17 05:42 | Inpatient (IN) | payer MEDICARE, OTHER ==
[~2020-10-17] VITALS: Ht 175.3 cm; Wt 122.7 kg
[~2020-10-17 05:42] MED LIST changes: +ADULT ASPIRIN R81 MG PO; +ATORVASTATIN CA80 MG PO; +CELECOXIB200 MG PO; +DILTIAZEM ER180 MG PO; +ELIQUIS5 MG PO; +LANTUS SOL100 UNIT/1 SUB-Q; +LISINOPRIL2.5 MG PO; +METFORMIN HCL500 M1 PO; +METOPROLOL SUCC50 MG PO; +TERBINAFINE HC250 MG PO; +VITAMIN D3125 MC1 PO
--- OUTSIDE RECORDS SUMMARY | 2020-10-17 05:44 | XMS ---
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 Care History Medical/Surgical 05/13/2020 [facility] [place] - PATIENT IS [facility] ELIGIBLE, \T\middot;\T\nbsp; PLEASE REFER PATIENT TO [facility] FOR NON EMERGENT MEDICAL NEEDS. \T\middot;\T\nbsp; [facility] CAN SEE PATIENTS SAME DAY FOR APTS IF PATIENT CALLS FIRST THING IN THE MORNING. E.D. VISIT COUNT (12 MO.) 5 [facility] TOTAL 5 NOTE: Visits indicate total known visits. ED/UCC VISIT TRACKING (12 MO.) 10/17/2020 05:43 [facility] [place] TYPE: Emergency COMPLAINT: - SOB 09/22/2020 14:32 [facility] [place] TYPE: Emergency COMPLAINT: - BLOOD SUGAR PROBLEM 05/15/2020 09:44 [facility] [place] TYPE: Emergency COMPLAINT: - LT GREAT TOE PAIN DIAGNOSES: - Other e commerce developer (current) drug therapy - Type 2 diabetes mellitus with diabetic neuropathy, unspecified - Blister (nonthermal), left great toe, initial encounter - Exposure to other specified factors, initial encounter - Essential (primary) hypertension - Cellulitis of left toe - Personal history of nicotine dependence - jail (current) use of insulin - Blister (nonthermal), left great toe, initial encounter 05/12/2020 14:17 [facility] [place] TYPE: Emergency COMPLAINT: - POSSIBLE INFECTION 04/24/2020 22:19 [facility] [place] TYPE: Emergency COMPLAINT: - LEG SPASMS DIAGNOSES: - Type 2 diabetes mellitus with diabetic neuropathy, unspecified - Essential (primary) hypertension - hvac specialist (current) use of insulin - jail (current) use of aspirin - Other e commerce developer (current) drug therapy - Paresthesia of skin INPATIENT VISIT TRACKING (12 MO.) 09/22/2020 17:12 [facility] [place] TYPE: Critical Care COMPLAINT: - AFIB DIAGNOSES: - Type 2 diabetes mellitus without complications - Unspecified atrial fibrillation - jail (current) use of aspirin - Other correction (current) drug therapy - hvac specialist (current) use of non-steroidal anti-inflammatories (NSAID) - Unspecified systolic (congestive) heart failure - Atherosclerotic heart disease of [place] coronary artery without angina pectoris - Presence of aortocoronary bypass graft - Hypertensive heart disease with heart failure - hvac specialist (current) use of insulin 05/12/2020 16:46 [facility] [place] TYPE: Medical Surgical COMPLAINT: - LEFT GREAT TOE CELLULITIS, HYPERGLYCEMIA DIAGNOSES: - Cellulitis of left toe - Type 2 diabetes mellitus with hyperglycemia - Type 2 diabetes mellitus with other skin complications - Presence of aortocoronary bypass graft - Type 2 diabetes mellitus with diabetic neuropathy, unspecified - Hyperlipidemia, unspecified - Other e commerce developer (current) drug therapy - Atherosclerotic heart disease of [place] coronary artery without angina pectoris - Essential (primary) hypertension - jail (current) use of insulin - hvac specialist (current) use of aspirin [email or web address]
[2020-10-17] MEDS ORDERED: LISINOPRIL20 MG PO (06:01)
--- NOTE | 2020-10-17 08:08 | NUR ---
PATIENT ADMITTED TO 130 FOR AFIB W/RVR. PT ABLE TO STAND, PIVOT AND MOVE TO CCU BED. PT REPORTS THAT HE HAS BEEN HAVING DIFFICULTY "CATCHING HIS BREATH," BUT DENIES SHORTNESS OF BREATH. PT IN AFLUTTER/AFIB 90s ON MONITOR. EDEMA NOTED IN LOWER LEGS. SP02 IS 96% ON ROOM AIR. FINE CRACKLES HEARD IN LOWER LUNG PARSONS. BREAKFAST ORDERED FOR PATIENT. DR. ABRAHAM TO SEE PATIENT.
--- NOTE | 2020-10-17 08:25 | NUR ---
Spoke with Quinton, denies changes since last admissions. Feels he is taking his meds correctly and following directions from Dr. States he became sob with his Afib. He states he could use a bath chair, will check if Y will pay as medicare will not. Note given to Dr. Whatley requesting he complete a note and RX to send. Pt states they can afford to buy if [facility] won't. Informed we will attempt to obtain. Pt. plans on dc to home when cleared medically.
--- NOTE | 2020-10-17 09:44 | NUR ---
DR. ABRAHAM IN ROOM TO SEE PATIENT AT THIS TIME. PLAN OF CARE DISCUSSED WITH DR. ABRAHAM. PATIENT REMAINS SITTING IN CHAIR.
[2020-10-17] MEDS ORDERED: DILT-XR180 MG PO (11:36)
[2020-10-17] MEDS ORDERED: ADULT ASPIRIN R81 MG PO (11:37)
--- NOTE | 2020-10-17 11:56 | NUR ---
Medications reconciled using pharmacy records and [facility] physician notes
--- NOTE | 2020-10-17 12:08 | NUR ---
PATIENT WANTING TO GET UP AND WALK AROUND SOME. PT HELPED TO WALK AROUND IN ROOM. PT UP TO 120s WITH THIS ACTIVITY AND PATIENT BECOMES QUITE WINDED. PT HELPED TO SHAVE THE REST OF HIS HEAD. PT STATES HE IS ALREADY FEELING BETTER AFTER THE LASIX WAS GIVEN AND HAS STARTED TO VOID. WILL CONTINUE TO MONITOR.
--- NOTE | 2020-10-17 12:42 | NUR ---
HR SUSTAINING 128-130 SINCE 1215. PT DENIES SHORTNESS OF BREATH OR CHEST PAIN. RHYTHM IS REGULAR, BUT NO P WAVES EVIDENT, AND CONSIDERING PATIENT WAS IN A FLUTTER EARLIER, ASSUMING THAT THIS RHYTHM REMAINS AFLUTTER. DR. ABRAHAM NOTIFIED AND THIS RN WAS ASKED TO GIVE PT'S 1400 DOSE OF CARDIZEM NOW, WHICH WAS GIVEN. THIS DOSE WAS 60 MG PO CARDIZEM. PT REMAINS SITTING IN CHAIR AND EATING LUNCH.
--- NOTE | 2020-10-17 13:02 | NUR ---
PT ALERT, ORIENTED AND SITTING IN CHAIR. PT FAMILIAR WITH ME, AND FELT COM- FORTABLE ENOUGH TO ADMIT THAT HE NOW NEEDS TO LISTEN AND DO WHAT HIS DR HAS BEEN TELLING HIM AND HIS ! PT IN GOOD MOOD, THANKED ME FOR COMING IN. LEFT. G.POST, WILL FOLLOW
--- NOTE | 2020-10-17 13:03 | NUR ---
PATIENT GIVEN 1400 DOSE OF METOPROLOL NOW FOR HR THAT IS STAYING IN THE 128-130s RANGE. RHYTHM REMAINS VERY REGULAR. PT ATE 90% OF HIS LUNCH. DISCUSSED FLUID RESTRICTION WITH PATIENT AND HIS DIETARY RESTRICTIONS. 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 PATIENT AGREEABLE TO CUT WAY BACK ON SALT AND WAS HEARD TALKING TO HIS ON THE PHONE SAYING, "WELL, I'M GOING TO HAVE TO GIVE UP SALT FINALLY." PT NOW STAINDING TO VOID. CONTINUE TO MONITOR.
--- NOTE | 2020-10-17 13:13 | NUR ---
PATIENT BACK FROM BATHROOM AND NOW SITTING IN CHAIR RELAXING. HR REMAINS ELEVATED, 128. PT UNABLE TO HAVE A BM AT THIS TIME.
--- NOTE | 2020-10-17 13:47 | NUR ---
Patient desaturated to 75% on RA. This RN to room. Patient states "I keep trying to fall asleep but when I do I feel like I can't take a breath in, so I wake myself up." 2LNC put in place. Discussed sleep apnea and the potential need for CPAP/Bipap, if the nasal cannula did not help. Patient states "They ([facility]) tried to get me to wear a mask for sleeping six years ago. I hope this nasal cannula works." Blinds drawn and tv turned off per patient request to take a nap. Denies further needs, call light within reach.
--- NOTE | 2020-10-17 14:45 | NUR ---
PATIENT AWAKE FROM HIS REST AND VOIDS TO URINAL. PT GIVEN NEXT DOSE OF IV LASIX, 40 MG. PT NOT WANTING TO WEAR HIS GOWN, HE FEELS HOT AND SWEATY. TEMP IS 97.7 AT THIS TIME. CONTINUE TO MONITOR.
--- NOTE | 2020-10-17 17:35 | NUR ---
BLOOD SUGAR DOWN TO 79. PT IS ALERT, TALKING, BUT DOES SAY HE FEELS "LOW" WHEN ASKED. PT GIVEN 20 G CARB SODA AND 20 G CARB CHOCOLATE PUDDING. PT WAITING ON HIS DINNER. WILL NOTIFY DR. ABRAHAM. PT CHECKED HIS CBG ON HIS CONTINUOUS BLOOD SUGAR MONITOR ON HIS LEFT ARM AND IT WAS NOTED TO BE 67. PT NOTES THAT HE HAS BEEN DROPPING LOW AT TIMES AT HOME.
--- NOTE | 2020-10-17 18:48 | NUR ---
DR. ABRAHAM NOTIFIED OF BLOOD SUGARS AND HR SUSTAINING IN THE 129-130 RANGE. NEW ORDERS TO BE REC'D AND WILL GIVE CARDIZEM NOW AND METOPROLOL NOW THAT WERE DUE AT 1999. PT RESTING IN BED ON HIS SIDE. CONTINUE TO MONITOR.
--- NOTE | 2020-10-17 19:45 | NUR ---
PT CALLS FOR ASSISTANCE TO GET UP TO CHAIR, RESTING HR 128, NO CHANGE WITH ACTIVITY. HELPED TO CHAIR, CALL LIGHT IN HAND, NO FURTHER REQUESTS.
--- NOTE | 2020-10-17 21:15 | NUR ---
IN TO DO ASSESSMENT AND HS MEDS. REQUESTS PUDDING FOR A SNACK. DENIES PAIN OR SOB. UP TO CHAIR WITH CALL LIGHT.
--- NOTE | 2020-10-18 | NUR ---
PT SLEEPING, AWAKENS BRIEFLY THEN BACK TO SLEEP. HR 90'S AFIB/FLUTTER.
--- NOTE | 2020-10-18 02:29 | NUR ---
IN TO GIVE MEDS, PT AWAKENS EASILY, DENIES NEEDS. CALL LIGHT IN REACH.
--- NOTE | 2020-10-18 04:00 | NUR ---
PT CALLS TO STATE HE WOKE UP SWEATY AND HIS BLOOD SUGAR WAS 65 PER HIS ARM GLUCOMETER. GIVEN ORANGE JUICE AND PUDDING AND WILL RECHECK.
--- NOTE | 2020-10-18 05:31 | NUR ---
UPDATED DR ABRAHAM ON PTS RECENT LOW BLOOD SUGARS, ORDER GIVEN TO DC INSULINS, CONT TO MONITOR PT. PT CURRENTLY SITTING UP IN CHAIR, CALL LIGHT IN HAND.
--- NOTE | 2020-10-18 06:20 | NUR ---
BLOOD SUGAR PER PTS GLUCOMETER 166. PT REPORTS FEELING MUCH BETTER, UP TO BATHROOM THEN UP TO CHAIR WITH CALL LIGHT IN REACH.
--- NOTE | 2020-10-18 07:30 | NUR ---
REPORT RECIEVED. PATIENT IS SITTING UP IN CHAIR. DENIES PROBLEMS.
--- NOTE | 2020-10-18 08:00 | NUR ---
ACCUCHECK DONE, BS 188 3 UNITS INSULIN GIVEN. ASSESSMENT DONE. DENIES SHORTNESS OF BREATH. CONTINUE WITH GENERALIZED EDEMA. ROUTINE MEDICATIONS GIVEN. PATIENT DENEIS PAIN. REASDY OF BREAKFAST.
--- NOTE | 2020-10-18 08:46 | NUR ---
breakfast given. v/s done. daily standing weight done. room picked up. no other needs at this time. call light with in reach
--- NOTE | 2020-10-18 09:30 | NUR ---
REMAINS IN CHAIR. HAS BEEN VOIDING TO URINAL. NO CHANGES.
--- NOTE | 2020-10-18 10:16 | NUR ---
pt. had bed bath with minimal assistance from truck crane operator
--- NOTE | 2020-10-18 12:30 | NUR ---
ASSESSMENT DONE, NO CHANGES. READY FOR LUNCH. ACCUCHECK 267, 5 UNITS INSULIN GIVEN.
--- NOTE | 2020-10-18 13:00 | NUR ---
TOOK LUNCH WELL. KILO BARR RN HERE TO START EDUCATION ON CHF. LASIX GIVEN ORDERED.
--- NOTE | 2020-10-18 13:59 | NUR ---
pt. went to bathroom and had bowel movement. no other needs at this time
--- NOTE | 2020-10-18 14:07 | NUR ---
PT ASLEEP, DID NOT DISTURB. WILL CHECK BACK
--- NOTE | 2020-10-18 16:00 | NUR ---
ASSESSMENT DONE. PATIENT AMBULATED IN HESTER, USING WALKER. TOLERATED WELL. AFTER WALKING UP AND DOWN HESTER TWICE THEN BACK TO ROOM. C/O INCREASED LEG PAIN UPO RETURN TO BED.
--- NOTE | 2020-10-18 16:14 | NUR ---
Certified Heart Failure Nurse Notes: Grey Iron Molder : Patient reports never establishing with one post previous cardiac events. Would like to be referred by his PCP so insurance will cover. PCP: Sanjiv Ramsey EF40% Alvarez Inhibitor and beta laura prescribed Admit Wt.: 286 lb BMI 42 Admit BNP: 188 Social support system: Jenniffer. Mentions having many relatives in the area. Weight monitoring: Scale present in home Explained how to weigh daily/ identifies when to notify PCP Symptom management: Addressed monitoring and reporting changes in weight or symptoms utilizing Zones form Diet: Usual meals include home cooked foods. Reports Jenniffer has been trying to get him to use less salt. Grows own garden vegetables. Understands label reading. Reinforced need for decreased sodium in diet and to be aware of prepared foods. Medication routine: Did not report any problems. Does not currently use a pill box. Advanced directive: Not discussed at this initial visit Recommendations prior to discharge: Reinforce low sodium heart healthy diet Document ambulation oxygen saturations prior to discharge Absence of orthostatic hypotension. Discharge weight less than admit weight. Follow up appointment within a week of DC. Self-Management Goal: Decrease sodium and take salt shaker off the table. To begin daily AM weight routine. Follow-up plans: To give BID pill reminder box, low sodium shopping list, and use of spices handouts prior to DC. Patient agrees to receive follow up call from this service. Patient does not currently qualify for cardiac rehabilitation but would be welcome for complimentary outpatient heart failure education. Teaching materials given: [facility] Heart Failure bundle folder-[facility] My Action Plan Living Well with Heart Failure book, Daily weight and symptom monitoring log, Zones magnet, [facility] contact information
--- NOTE | 2020-10-18 18:14 | NUR ---
CONTINUES TO SIT IN CHAIR. TOOK DINNER WELL. PATIENT STATES HE IWS FEELING GOOD.
--- NOTE | 2020-10-18 19:30 | NUR ---
Report received, orders acknowledged. Patient sitting up in chair, states "I had a great day - I feel like I'm getting better." Denies any needs at this time, call light within reach.
--- NOTE | 2020-10-18 20:00 | NUR ---
Patient sitting up in chair, alert and awake. When asked patient states "I had a great day, I even walked further today than I did yesterday." Patient requests to walk hallway prior to going to bed, which is accommodated. Patient heart rate ranging from 80-100's with ambulation down the hager and back to room. Patient states "I want to walk a little more, from here to the nurses station and back." Patient continues to ambulate, HR increases to 120's with more activity. Patient returns to room and sits in chair. Patient HR in the 120's and appears SOB. After several minutes of sitting, HR decreases to low 100's and patient no longer appears SOB. Patient independently goes to the bed and sits in high-fowlers. PM medications given. Vital signs taken, assessment complete. Patient denies pain, no further needs. Call light within reach.
--- NOTE | 2020-10-18 21:46 | NUR ---
Patient sleeping in bed in high fowlers, respirations even and unlabored. HR ranging from 90-100's. Call light within reach.
--- NOTE | 2020-10-18 22:01 | EKG ---
[facility] [address] [place] [address] Signed Atrial flutter with 2 to 1 block Right bundle branch block Left anterior fascicular block Bifascicular block Abnormal ECG When compared with ECG of 22-SEP-2020 14:41, Sinus rhythm has replaced Wide QRS tachycardia Confirmed by TAN ABRAHAM MD ([id number]) on 10/18/2020 10:01:02 PM Electronically Signed By: TAN ABRAHAM MD 10/18/202200 PATIENT NAME: TR CABALLERO Electrocardiogram DATE OF : 53 PHYSICIAN: TAN ABRAHAM MD REPORT #: [id number] REPORT IS CONFIDENTIAL AND NOT TO BE RELEASED WITHOUT AUTHORIZATION
--- NOTE | 2020-10-18 22:15 | NUR ---
Patient sleeping in bed, respirations even and unlabored. Patient rouses to voice, an additional 10 units of lantus given. Patient falls asleep easily. Call light within reach.
--- NOTE | 2020-10-18 23:31 | NUR ---
Patient sleeping in bed in high fowlers, respirations even and unlabored. 1LNC in place, SpO2 in the mid-90's. HR ranging from 80-100. Call light within reach.
--- NOTE | 2020-10-19 00:43 | NUR ---
Patient now awake, requests need to use urinal. Patient sits up at edge of bed and reports feeling "lightheaded and foggy." States "This is how I feel when I have low blood sugar." PRN accucheck of 168. Patient instructed to remain seated at edge of bed while feeling lightheaded. Vitals taken. Systolic BP of 99, HR ranging from 80-100. Assessment complete. Crackles heard in bilateral lung bases. Patient instructed to deep breath and cough. After several minutes patient reports feeling lightheadedness and fogginess decrease. Patient reports feeling this way at home occassionally and "I eat a banana and feel better." Patient able to stand at bedside to use urinal, steady on feet. 250 mls of urine noted. Patient returns to bed, remains in high fowlers. Warm blanket provided, denies further needs. Call light within reach.
--- NOTE | 2020-10-19 01:15 | NUR ---
Patient reports continuing to feel lightheaded and foggy. Patient checks blood sugar with in-arm blood sugar monitor, BG of 148. Patient reports feeling nauseous but denies chest or back pain. Patient sits at edge of bed. Chocolate pudding given to patient to help with feelings of nausea, fogginess, and lightheadedness. Patient requests to sit in chair, which is accommodated. Patient reports feeling improved after pudding and now sitting up in the chair. Warm blanket provided, denies further needs. Call light within reach.
--- NOTE | 2020-10-19 02:33 | NUR ---
Patient sleeping in chair, 1LNC in place. Slight snoring heard, SpO2 of 95%. Patient rouses to voice, scheduled cardiac meds given (see MAR). BP of 100/75, HR ranging from 80-100. Warm blankets provided, patient falls asleep easily. Call light within reach.
--- NOTE | 2020-10-19 03:45 | NUR ---
Patient requests to return to bed. Patient voids 250 mls of urine into urinal first. Patient able to ambulate independently to bed, in high fowlers. Warm blankets provided, denies further needs. Patient falls asleep easily. Call light within reach.
--- NOTE | 2020-10-19 05:15 | NUR ---
Lab in room for blood draw
--- NOTE | 2020-10-19 05:58 | NUR ---
Patient standing weight obtained; 124.7kg. Patient denies feeling "foggy or lightheaded" as in previous assessments. Reports "I feel good." Patient to chair independently, warm blankets provided. Patient watching tv, denies further needs. Call light within reach.
--- NOTE | 2020-10-19 07:30 | NUR ---
REPORT RECIEVED. PAIENT SITTING IN CHAIR. REQUESTING COFFEE.
--- NOTE | 2020-10-19 08:00 | NUR ---
ASSESSMENT DONE. TALKED WITH PATIENT ABOUT POC FOR DAY. ACCUCHECK-164. ONE UNIT INSULIN GIVEN.
--- NOTE | 2020-10-19 09:00 | NUR ---
TOOK BREAKFAST WELL ROUTINE MEDICATIONS GIVEN. TALKED WITH PATIENT ABOUT LOPRESSOR AND LONG ACTING CARDIZEM. TO BR TO PASS FLATUS AND HAD UNMEASURED VOID. PATIENT C/O INCREASED SHORTNESS OF BREATH WHEN ATTEMPTING TO PUT ON BRIEFS. PATIENT STATED HE HAD SPOTS IN FRONT OF EYES. AFTER THIS CLEARED BACK TO CHAIR.
--- NOTE | 2020-10-19 10:00 | NUR ---
LEFT EYE SOMEWHAT RED AND IRRITATED. SALINE GTT INSTILLED.
--- NOTE | 2020-10-19 10:40 | NUR ---
pt. sister ALIYA called to check in with him. Pt. was asleep, sister said she would call back later. no other needs at this time.
--- NOTE | 2020-10-19 11:59 | NUR ---
Pt sleeping, not awakened. Update from Rn, they have continued to provide education for diet and fluid restrict.
--- NOTE | 2020-10-19 12:47 | NUR ---
pt. used the urinal. called when finished, supervisor drying went in and emptied it.
--- NOTE | 2020-10-19 13:10 | NUR ---
LASIX 80 MG IV GIVEN ORDERED.
--- NOTE | 2020-10-19 13:45 | NUR ---
AMBULATED IN HALLWAY UP AND DOWN ONCE. C/O HIP AND LEG PAIN UPON RETURN TO ROOM.
--- NOTE | 2020-10-19 14:09 | NUR ---
PT SITTING IN CHAIR, C/O SWELLING IN BLE. ENCURAGED TO KEEP LEGS UP. PT SAID HE SLEPT FAIRLY WELL, SEEMED PLEASED I STOPPED BY. GAVE BLESSING, WILL FOLLOW
--- NOTE | 2020-10-19 17:58 | NUR ---
TOOK DINNER WELL. VERY TALKATIVE.
--- NOTE | 2020-10-19 18:07 | NUR ---
LEFT EYE REMAINS RED AND IRRITATED. SALINE GTT INSTILLED TO LEFT EYE.
--- NOTE | 2020-10-19 19:05 | NUR ---
RESTING IN BED, HOB ELEVATED. O2 ON AT 1 LITER NC. NO FUTHER CHANGES.
--- NOTE | 2020-10-19 19:15 | NUR ---
Report received, orders acknowledged. Patient sleeping in bed at this time, 1LNC in place. Call light within reach.
--- NOTE | 2020-10-19 21:00 | NUR ---
Patient sleeping in high fowlers position, rouses easily to voice. Vital signs taken, assessment complete. Insulin given per order (see MAR). Patient affect seems depressed and flat. Patient states "I just feel so grumpy right now." Patient denies lightheadedness, fogginess, or nausea. States "I just feel off." Therapeutic communication used. Patient reports feeling hot, afebrile. Cold cloth provided to wash face. Denies further needs, call light within reach.
--- NOTE | 2020-10-19 22:30 | NUR ---
Patient affected improved, patient now smiling and joking with nursing staff. Patient stands at bedside to void using urinal, 275 mls of yellow urine produced. Patient returns to bed, positioned for comfort. Denies needs, call light within reach.
--- NOTE | 2020-10-19 23:00 | NUR ---
Patient up to chair independently, steady on feet. Patient watching tv, warm blankets provided. Denies further needs, call light within reach.
--- NOTE | 2020-10-20 00:53 | NUR ---
Patient sleeping in chair, respirations even and unlabored. 1LNC in place, SpO2 of 92%. HR in the 60's. Call light within reach.
--- NOTE | 2020-10-20 03:00 | NUR ---
Patient sleeping in recliner with 1LNC in place. HR in the 60-70's. Respirations even and unlabored. Call light within reach.
--- NOTE | 2020-10-20 04:00 | NUR ---
Patient reports feeling "foggy and out of it." Patient checks his sarina machine, BG of 108. Snack provided for patient who reports feeling better afterwards. Patient falls asleep in the chair, respirations even and unlabored. Call light within reach.
--- NOTE | 2020-10-20 05:00 | NUR ---
Lab in room for blood draw
--- NOTE | 2020-10-20 06:45 | NUR ---
Patient up to scale for daily standing weight. As patient returning to chair, reports feeling dizzy. Patient assisted to chair and after one minute reports feeling better. HR in the 70's and systolic BP in the low 100's. Call light within reach.
--- NOTE | 2020-10-20 07:30 | NUR ---
PATIENT REPORT RECIEVED FROM DISH PERSON RN. PATIENT RESTING IN THE CHAIR AT THSI TIME WITH HIS LEGS PROPED UP. PATIENT DENEIS ANY OTHER NEEDS. CALL LIGHT IN REACH. WILL CONTINUE TO CLOSELY MONITOR.
--- NOTE | 2020-10-20 08:22 | NUR ---
Spoke with Quinton. He is frustrated as he feels his fluid is not decreasing. We reviewed Stop Light Protocol and pt does not remember any discussions with staff. Per staff, pt has been provided education daily on Stop Light. I got the paperwork and magnet for the protocol and reviewed with pt. He does remember speaking with staff about weighing daily.
--- NOTE | 2020-10-20 08:30 | NUR ---
Pt sitting up in chair eating breakfast. Morning meds given and pt was cooperative. No more needs at this moment. call light within reach, will continue to monitor.
--- NOTE | 2020-10-20 08:30 | NUR ---
v/s done, pt. up in chair, pt washed, room picked up bed done. no other needs at this time, call light within reach
--- NOTE | 2020-10-20 08:42 | NUR ---
PATIENT SHIFT ASSESSMENT COMPLETED. PATIENT SITTING UP IN THE CHAIR. PATIENTS BREATH SOUNDS CLEAR. PATIENT HAD NC IN NOSE BUT OXYGEN ON WALL WAS OFF. PATIENTS SPO2 95-100%. REMOVED CANNNULA. PATIENT REPORTS FEELING MUCH BETTER THAN YESTERDAY. BOWEL TONES ACTIVE. PAT REPORTS BM YESTERDAY MORNING AND CAN USE THE URINAL INDEPENDENTLY. URINAL WITHIN REACH. PATIENT NOTED TO HAVE 2-3+ EDEMA IN BILATERAL LOWER EXTREMITIES. PATIENT MEDICATIONS GIVEN AND PATIENT EATING BREAKFAST AT THIS TIME. WILL CONTINUE TO CLOSELY MONITOR.
--- NOTE | 2020-10-20 10:30 | NUR ---
PATIENT SITTING UP IN THE CHAIR. PATIENT ATE 100% OF HIS BREAKFAST. PATIENT UP TO THE BATHROOM WITH STAND-BY ASSIST AND BACK TO THE CHAIR. PATIENT TOLERATES WALKING WELL. PATIENT ENCOURAGED TO SIT WITH HIS LEGS ELEVATED. PATIENT ALWAYS ASK FOR MORE FLUID IF HE CAN GET IT BUT, UNDERSTANDS ON HIS CURRENT FLUID RESTRICTION HE CANT HAVE MORE. PATIENT EDUCATED ABOUT FLUID RESTRICTION AND SALT INTAKE. PATIENT IS OPEN TO EDUCATION, BUT STATES "I HAVE A HARD TIME MAKING THE BEST DECISION". CALL LIGHT IN REACH. PATIENT BACK ON 1L OF OXYGEN AT THIS TIME. WILL CONTINUE TO CLOSELY MONITOR.
--- NOTE | 2020-10-20 12:45 | NUR ---
PATIENTS FOOD HERE. IN TO GIVE FOOD AND INSULIN. PATIENT GIVEN 300 OF FLUID AT THSI TIME. PATIENT HAS BEEN AGREEABLE TO FLUID INTAKE THAT HAS BEEN LIMITED D/T THE CURRENT FLUID RESTRICTION. PATIENT DENEIS ANY OTHER NEEDS AT THIS TIME. WILL CONTINUE TO CLOSELY MONITOR.
--- NOTE | 2020-10-20 14:34 | NUR ---
IN TO GIVE MEDICATIONS AND EMPTY URINAL. PATIENT REQUESTED A PUDDING AT THIS TIME. SUGARFREE PUDDING GIVEN FOR SNACK. PATIENT DENIES ANY OTHER NEEDS AT THIS TIME. CALL LIGHT IN REACH.
--- NOTE | 2020-10-20 17:15 | NUR ---
PATIENT MEDICATIONS GIVEN AND FOOD AT THE BEDSIDE. COFFEE GIVEN. WILL ALLOW PATIENT TO EAT AT THIS TIME. PATIENT REMAINS UP IN THE CHAIR. CALL LIGHT IN REACH.
--- NOTE | 2020-10-20 17:55 | NUR ---
STUDENT NURSE IN TO GET DINNER ORDER AND CHECK ON PATIENT. PATIENT DENIES ANY OTHER NEEDS AT THIS TIME.
--- NOTE | 2020-10-20 17:58 | NUR ---
PATIENT STILL WORKING ON HIS DINNER. WILL CHECK BACK WITH PATIENT WHEN HE IS DONE.
--- NOTE | 2020-10-20 18:20 | NUR ---
ASSESSMENT DONE IN ROOM, PT RESTING IN CHAIR AFTER EATING DINNER. PT REPORTS NO PAIN OR NAUSEA. PT STATES NO NEEDS AT THIS MOMENT. CALL LIGHT, BEDSIDE TABLE, AND URINAL WITHIN REACH.
--- NOTE | 2020-10-20 19:00 | NUR ---
assisted pt into bed. pt is resting comfortably with call light, table, and urinal within reach.
--- NOTE | 2020-10-20 20:30 | NUR ---
PATIENT SLEEPING SOUNDLY. WOKE TO VOICE AND TOUCH. PATIENT IS ORIENTED X4. DENIES SOB OR PAIN. LUNG SOUNDS ARE CLEAR. DIMINISHED IN BASES. PATIENT LAYING IN THE BED. SCHEDULED MEDS PROVIDED AND ACCU CHECK DONE. VS STABLE. PATIENT DENIED NEED TO VOID. 1L NC IN PLACE FOR SLEEP. CALL LIGHT IN REACH.
--- NOTE | 2020-10-20 22:39 | NUR ---
PATIENT VOIDED INDEPENDENTLY IN URNAL. 350 MLS CLEAR YELLOW. ASSISTED PATIENT TO REPOSITION IN BED. 1L NC IN PLACE. HR 80-90'S WITH MILD ACTIVITY. PATIENT REPORTS FEELING TIRED BUT DENIES SOB. CALL LIGHT IN REACH.
--- NOTE | 2020-10-20 23:10 | NUR ---
ASSISTED PATIENT UP TO THE CHAIR. PROVIDED WITH HALF CUP OF DECAF COFFEE.
--- NOTE | 2020-10-20 23:54 | NUR ---
PATIENT UP TO THE BATHROOM TO HAVE LARGE BM. PATIENT FELT SOB RETURNING TO THE RECLINER. VS STABLE. 1L NC PLACED BACK ON PATIENT. PATIENT CHECKED HIS BLOOD GLUCOSE WITH HIS PERSONAL MONITOR WHICH WAS 168. SMALL SNACK PROVIDED PER REQUEST. PATIENT HAS CLEAR UPPER LOBES AND CRACKLES IN [place] BASES. PATIENT IS ITCHING AND HAS SOME OPEN AREAS ON HIS THIGH WHICH WERE CLEANING. ENCOURAGED PATIENT TO NOT SCRATCH SELF. PATIENT CONTINUES TO SIT IN THE RECLINER. FEET ELEVATED. CALL LIGHT IN REACH.
--- NOTE | 2020-10-21 02:45 | NUR ---
PATIENT WOKE AND REQUIRED HELP TO REPOSITION IN BED. SCHEDULED MEDS PROVIDED. VS STABLE. PATIENT REQUESTING A SNACK AND A SODA. ENCOURAGED PATIENT TO REST AND WAIT UNTIL MORNING. BLOOD GLUCOSE 190 ACCORDING TO PATIENT'S PERSONAL MEASURMENT. PATIENT SITTING UP IN BED NOW WATCHING TV.
--- NOTE | 2020-10-21 03:45 | NUR ---
PATIENT IS GOING TO ATTEMPT TO SLEEP MORE. ASSISTED PATIENT TO USE THE URNAL AND REPOSITION IN BED.
--- NOTE | 2020-10-21 04:36 | NUR ---
ASSISTED PATIENT UP TO THE BEDSIDE. NEW GOWN AND UNDERWEAR PROVIDED. PATIENT UP TO THE CHAIR AND REQUEST COFFEE WITH WAS PROVIDED. VS STABLE. PATIENT DOES NOT FEEL SOB AT THIS TIME.
--- NOTE | 2020-10-21 05:44 | NUR ---
PATIENT REPORTS FEELING SOB WHILE ON ROOM AIR. O2 SAT 90%. PATIENT PLACED ON 1L NC AND REACHED 97% O2 SAT QUICKLY. PATIENT FEELS BETTER NOW AND IS ATTEMPTING TO SLEEP IN THE RECLINER. CALL LIGHT IN REACH.
--- NOTE | 2020-10-21 06:13 | NUR ---
PATIENT AMBULATED IN THE HALLWAY THE LENGTH OF THE UNIT X1. PATIENT ON 2L NC AND CARDIAC MONITORING. HR WAS CONSISTENT IN THE 80'S AND PATIENT TOLERATED WELL. PATIENT DID FEEL INCREASINGLY SOB WITH ACTIVITY AND RETURNED TO THE RECLINER. VS STABLE. FRESH ICE WATER PROVIDED.
--- NOTE | 2020-10-21 07:45 | NUR ---
PATIENT SHIFT REPORT RECIEVED FROM RUMPER RN. PATIENT RESTING UP IN THE CHAIR. STUDENT RN JOEY IN WITH PATIENT AT THIS TIME. BREAKFAST ORDERED. WILL CONTINUE TO CLOSELY MONITOR.
--- NOTE | 2020-10-21 07:50 | NUR ---
IN PT ROOM FOR ASSESSMENT. PT FEELS WEAK AND STILL HAS EDEMA IN LOWER EXTREMITIES. PT STATES HE FEELS A LITTLE NAUSEATED. PT SITTING UP IN CHAIR, TABLE AND CALL LIGHT WITHIN REACH. WILL CONTINUE TO MONITOR. PT STATES NO MORE NEEDS AT THIS TIME, WILL CONTINUE TO MONITOR.
--- NOTE | 2020-10-21 07:59 | NUR ---
pt has zofran prn for nausea, but refused when I asked if he would like something for his nausea. pt stated "I feel low (blood suagr) and I know nausea will go away". pt checked his blood sugar and it was 186, sugar free pudding given to pt.
--- NOTE | 2020-10-21 08:22 | NUR ---
PT FEELING BETTER AFTER PUDDING THIS AM. PT IS SITTING UP NOW AND EATING BREAKFAST. BLOOD SUGAR CHECKED AND INSULIN GIVEN BEFORE BREAKFAST. PT STATES NO MORE NEEDS AT THIS TIME, WILL CONTINUE TO MONITOR.
--- NOTE | 2020-10-21 08:30 | NUR ---
WAITING TO GIVE PATIENT AM MEDICATIONS BECAUSE MD CHUA WILL BE CHANGING PO CARDIZEM ORDER PER VERBAL REPORT. PATIENT SITTING UP WORKING ON HIS BREAKFAST AT THIS TIME. WILL CONTINUE TO CLOSELY MONITOR.
--- NOTE | 2020-10-21 09:30 | NUR ---
THIS RN IN VISITING WITH PATIENT ABOUT RECENT HOSPITIALIZATION AND PRIOR HOSPITAL ADMISSION LAST MONTH. SPOKE WITH PATIENT IF THEY ERE ABLE TO GET HIM REFFERED TO A RESOURCE MANAGER. PATIENT STATES THEY MENTIONED THEY WOULD SEE IF THEY COULD GET HIM WITH A RESOURCE MANAGER, BUT DOUBTS HE WILL SEE ONE FOR AT LEAST 2 YEARS. PATIENT THEN STATED "WHAT CAN A RESOURCE MANAGER DO FOR ME ANYWAYS. ALL THEY DO IS ILL GO THERE AND THEY WILL CHAT WITH ME FOR 30 MIN AND SEND ME HOME". EDUCATED ON PURPOSE OF SEEING A RESOURCE MANAGER D/T HEART RHYTHM AND CHF DIAGNOSIS. PATIENT STATES HE IS FRUSTRATED CAUSE HE FEEL NO ONE FOLLOWS THROUGH AND GETS HIM THE HELP HE NEEDS. EDUCATED PATIENT THAT IN THE MEAN TIME HIS PRIMARY CARE PHYSICIAN WILL FOLLOW-UP WITH HIM, BUT HE NEEDS TO CONTINUE THE STEPS HE HAS LEARNED IN HERE WITH THE [facility] EDUCATOR. PATIENT REPORTS WENT AND BOUGHT A NEW SCALE. PATIENT CONSTANTLY ASKING FOR FLUIDS AND DOES NOT UNDERSTAND WHY STAFF CANT GIVE HIM MORE. EDUCATED ON HEART FAILURE AGAIN AND WHY HE IS ON A RESTRICTED DIET. WILL CONTINEU TO EDUCATE PATIENT DURING HIS STAY. CALLED AND MADE A FOLLOW-UP APPOINTMENT WITH [facility] FOR HIM. PATIENT DENIES ANY OTHER NEEDS. CALL LIGHT IN REACH. WILL CONTINUE TO CLOSELY MONITOR.
--- NOTE | 2020-10-21 11:56 | NUR ---
THIS RN AND STUDENT RN IN TO SEE PATIENT. ASSESSMENT DONE AND REMAINS UNCHANGED FROM PRIOR ASSESSMENT. PATIENTS LUNCH IS ORDERED. UPDATED ON CURRENT PLAN OF CARE. MEDICATIONS GIVEN. NO OTHER NEEDS AT THIS TIME. ORACLE MANUFACTURING CONSULTANT REVA IN TO VISIT WITH PATIENT.
--- NOTE | 2020-10-21 12:36 | NUR ---
PT SITTING IN CHAIR, ALERT AND ORIENTED. PT READY TO VISIT-SHARED HE HAS DECIDED TO GIVE UP COFFEE. DIFFICULT BUT WILL DO SO. PT MENTIONE THAT HE ALSO NEEDS TO MAKE OTHER LIFE CHANGES BECAUSE HE STILL WANTS TO LIVE HIS LIFE AND SPEND IT WITH FAMILY. PT MENTIONS ALSO THAT HE KNOWS HE SHOULD HAVE DONE SOME OF THESE THINGS SOONER AND WOULD HAVE KEPT BETTER HEALTH. PT TALKS ABOUT WHAT "USE TO BE".STRESSED THAT IS NOT REALISTIC BUT THERE ARE THINGS HE CAN DO THAT WILL MAKE LIFE ENJOYABLE. HE TALKED ABOUT [facility]- [facility]. GAVE BLESSING AND ENCOURAGEMENT. WILL FOLLOW
--- NOTE | 2020-10-21 12:45 | NUR ---
PATIENTS FOOD ARRIVED. MEDICATIONS GIVEN. PATIENT WORKING ON HIS LUNCH NOW AT THIS TIME. MD CHUA IN TO SEE PATIENT. WILL CONTINUE TO CLOSELY.
--- NOTE | 2020-10-21 13:35 | NUR ---
NO CHANGE IN DISCHARGE PLAN. HIS PREFERENCE IS TO DISCHARGE HOME WITH .
--- NOTE | 2020-10-21 13:45 | NUR ---
REPORT GIVEN TO LUCILLE HAMMOND. ALL QUESTIONS ANSWERED. WHEELED PATIENT OVER IN HIS CHAIR AND ALL BELONGINGS SENT WITH PATIENT. CHARGE NURSE RN IN THE ROOM ON ARRIVAL AND THEN LUCILLE RN AT THE BEDSIDE SHORTLY AFTER. NO FURTHER QUESTIONS. CALL LIGHT IN REACH.
--- NOTE | 2020-10-21 13:49 | NUR ---
PATIENT ARRIVES WITH STEPHANY DIALLO, IN RECLINER FROM ROOM 130 IN CCU TO ROOM 122.
--- NOTE | 2020-10-21 14:01 | NUR ---
PT RECEIVED FROM CCU. PT SITTING IN CHAIR. PT ON ROOM AIR, LUNG SOUNDS CLEAR WITH FINE CRACKLES IN BILAT BASES. IV SALINE LOCKED. PT WITH EDEMA TO BLE, 2-3+, WORSE IN RIGHT LEG. PT WITH WOUND TO LEFT GREAT TOE AND LEFT LATERAL ANKLE, CHRONIC WOUNDS. PT GIVEN SUGAR FREE PUDDING AND DISCUSSED FLUID RESTRICTION. PT DENIES OTHER NEEDS AT THIS TIME.
--- NOTE | 2020-10-21 14:32 | NUR ---
PATIENT AMBUALTED TO END OF HALLWAY AND BACK TO ROOM, 1PA FWW. PATIENT GOT A LITTLE SHORT OF BREATH. PATIENT NOW BACK IN CHAIR. 1LNC ON UPON RN REQUEST TO HELP WITH SHORTNESS OF BREATH FOR PATENTS COMFORT, O2 STAT AT 92% AFTER WALK. CALL LIGHT IN REACH. NO FURTHER NEEDS AT THIS TIME.
--- NOTE | 2020-10-21 17:17 | NUR ---
PT TRANSFERED FROM CCU. PT ON ROOM AIR, SOB WITH EXERTION, LUNG SOUNDS WITH FINE CRACKLES IN BASES. PT FOLLOWING FLUID RESTRICTION BUT DOES TRY TO GET MORE, REQUIRES EDUCATION. LOWER LEGS WITH EDEMA 2-3+, CMS INTACT. ACCU CHECK BLOOD GLUCOSE AND SS+BASE INSULIN. VOIDING QS.
--- NOTE | 2020-10-21 18:05 | NUR ---
PATIENT IN CHAIR WATCHING TV. FRESH WATER GIVEN. VITALS AND I&O'S CHARTED. CALL LIGHT IN REACH. NO FURTHER NEEDS AT THIS TIME.
--- NOTE | 2020-10-21 19:25 | NUR ---
SHIFT REPORT RECEIVED FROM IRIS HAMMOND. PT UP IN CHAIR, TALKING ON PHONE. CALL LIGHT IN REACH.
--- NOTE | 2020-10-21 19:56 | NUR ---
DOUBLE REAMER OPERATOR ROUNDING NOTE. PT RESTING IN RECLINER. STATES THAT HE WOULD LIKE TO TAKE A NAP THERE FOR A BIT, REPORTS THAT THE BED IS NOT VERY COMFORTABLE. PT REQUESTS LIGHTS BE TURNED DOWN. WARM BLANKET PROVIDED. WHITE BOARD UPDATED. PT DECLINES FURTHER NEEDS. CALL LIGHT IN REACH.
--- NOTE | 2020-10-21 20:44 | NUR ---
PT UTILIZES CALL LIGHT, REQUESTS ASSISTANCE TO GET INTO BED FROM RECLINER. PT UP WITH 1PA AND FWW. TOLERATED WELL. PILLOWS PLACED UNDER ARMS AND HANDS. THERMOSTAT INCREASED AND EXTRA BLANKETS PROVIDED. CALL LIGHT IN REACH.
--- NOTE | 2020-10-21 21:39 | NUR ---
ASSESSMENT, VS AND I&O COMPLETED. GCS 15, A&O X4. LUNGS CLEAR BUT DIMINISHED IN LOWER LOBES. HR AFIB @ 77. CMS INTACT. ABD FIRM, NONTENDER, OBESE, BOWEL TONES ACTIVE. SCHEDULED MEDS PROVIDED. BLE 2+ EDEMA, REDNESS. IV WNL, CDI, FLUSHED WELL. NO OTHER NEEDS AT THESE TIMES. CALL LIGHT IN REACH.
--- NOTE | 2020-10-21 23:56 | NUR ---
IN TO PROVIDE PT WITH HALF OF A CUP OF COFFEE, PER FLUID RESTRICTION AND RN, NO FURTHER NEEDS
--- NOTE | 2020-10-22 | NUR ---
PT RESTING IN BED, EYES CLOSED. RR EVEN, UNLABORED. HR AFIB @ 87. CALL LIGHT IN REACH.
--- NOTE | 2020-10-22 00:51 | NUR ---
PT CALLS STATING HIS IV WAS BOTHER HIM. IV FLUSHED WNL. RN OFFERED TO PLACE NEW IV. PT WANTS TO WAIT UNTIL THE MORNING. NO OTHER NEEDS AT THIS TIME. CALL LIGHT IN REACH.
--- NOTE | 2020-10-22 02:22 | NUR ---
PT TELE IS OFF, PT SITTING UP IN BED. TELE REPLACED, AFIB @ 81. PT ASSISTED TO CHAIR. ASSESSMENT COMPLETED. GCS 15, A&O X4. LUNGS CLEAR IN UPPER LOBE AND DIMINSISHED BUT CLEAR IN LOWER LOBES. ABD FIRM, OBESE, BOWEL TONES ACTIVE. 2+BLE EDEMA, NUMBNESS AND TINGLING. CMS INTACT IN UPPER EXTREMITIES. IV WNL. NO OTHER NEEDS AT THIS TIME. CALL LIGHT IN REACH.
--- NOTE | 2020-10-22 06:30 | NUR ---
IN TO GET AM VITALS, I&Os ARE DONE, DAILY WEIGHT TAKEN, FRESH ICE WATER GIVEN AT THIS TIME NO FURTHER NEEDS AT THIS TIME
--- NOTE | 2020-10-22 08:00 | NUR ---
PT RESTING WITH EYES CLOSED AT TIME OF REPORT.
--- NOTE | 2020-10-22 09:16 | NUR ---
PT UP IN CHAIR ALL MORNING, TOLERATES 100% OF BREAKFAST. DOES OWN PERSONAL CARES. DENIES DISCOMFORTS OR NEEDS
--- NOTE | 2020-10-22 10:17 | NUR ---
PT UP AMBULATING THE HALLS WITH P/T
--- NOTE | 2020-10-22 11:11 | NUR ---
DR CHUA IN TO SEE PT, ALL QUESTIONS ANSWERED
--- NOTE | 2020-10-22 18:09 | NUR ---
PATIENT SITTING IN CHAIR. VITAL SIGNS AND I&O'S DOCUMENTED. CALL LIGHT WITHIN REACH. NO FUTHER NEEDS AT THIS TIME.
--- NOTE | 2020-10-22 20:45 | NUR ---
PT RESTING IN BED WITH EYES CLOSED, NAD. RESPIRATIONS EVEN AND UNLABORED. CALL LIGHT IN REACH. WHITE BOARD UPDATED.
--- NOTE | 2020-10-22 21:40 | NUR ---
EVENING ASSESSMENT COMLETE. SCHEDULED MEDS ADMINISTERED PER EMAR. PT DENIES PAIN OR NAUSEA. NO CP OR SOB. EDEMA IN UPPER AND LOWER EXTREMITIES NOTED. LUNGS CLEAR. DIM IN BASES. WATER PROVIDED. PT WITHIN FLUID RESTRICTION. PT DENIES QUESTIONS OR CONCERNS. NO FURTHER NEEDS. CALL LIGHT IN REACH.
--- NOTE | 2020-10-22 23:21 | NUR ---
CALL LIGHT ON, PT REQUESTING TO GET UP TO THE TOILET, WILL CALL WHEN READY
--- NOTE | 2020-10-22 23:25 | NUR ---
PT BACK FROM THE TOILET, PUDDING PROVIDED
--- NOTE | 2020-10-23 02:04 | NUR ---
PT RESTING IN BED WITH EYES CLOSED LYING ON LEFT SIDE. RESPIRATIONS EVEN AND UNLABORED. CALL LIGHT IN REACH.
--- NOTE | 2020-10-23 04:12 | NUR ---
PT RESTING IN BED WITH EYES CLOSED, NAD. HOB ELEVATED. RESPIRATIONS EVEN AND UNLABORED.
--- NOTE | 2020-10-23 05:34 | NUR ---
PT UP TO BR WITH SBA AND FWW TO VOID 800 ML CLEAR YELLOW URINE. GAIT STEADY. WEIGHT OBTAINED. PT IN RECLINER AT THIS TIME WITH FEET ELEVATED. DENIES SOB OR CP. DENIES PAIN OR NAUSEA. NO FURTHER NEEDS. CALL LIGHT WITHIN REACH.
--- NOTE | 2020-10-23 07:15 | NUR ---
BEDSIDE HANDOFF REPORT RECEIVED FROM SHINGLE BOLT CUTTER RN. PT SITTING IN CHAIR PT DENIES NEEDS AT THIS TIME.
--- NOTE | 2020-10-23 08:40 | NUR ---
PT SITTING IN CHAIR. PT ON ISAMAR AIR, LUNG SOUNDS CLEAR WITH FINE CRACKLES IN BASES, DENIES SOB. PT TOLERATING DIET, FOLLOWING FLUID RESTRICTION, 13 UNITS INSULIN GIVEN FOR BLOOD GLUCOE 146 (1 UNIT SS AND 12 UNITS BASE). PT WITH EDEMA TO BLE 2+, PT CONTINUES TO STATE ABD FEELS DISTENDED. IV SALINE LOCKED, FLUSHED AND PATENT. DISCUSSED PLAN OF CARE FOR THE DAY, PT DENIES OTHER NEEDS AT THIS TIME.
--- NOTE | 2020-10-23 16:12 | NUR ---
PATIENT OFFERED SHOWER. PATIENT REQUESTS TO HAVE ONE TOMORROW MORNING INSTEAD. CALL LIGHT WITHIN REACH. DENIES NEEDS AT THIS TIME.
--- NOTE | 2020-10-23 17:10 | NUR ---
PT GIVEN 13 UNITS HUMALOG PER EMAR. PT SITTING IN CHAIR. PT DENIES OTHER NEEDS AT THIS TIME.
--- NOTE | 2020-10-23 18:23 | NUR ---
PT REMAININED ON ROOM AIR TODAY, LUNG SOUNDS WITH FINE CRACKLES IN BASES. PT WITH 2+ EDEMA IN BLE, ABD DISTENDEDED. PT FOLLOWING FLUID RESTRICTION, BLOOD GLUCOSE IS MUCH BETTER TODAY, RECEIVING SS HUMALOG AND A BASE OF 12 UNITS HUMALOG WITH EACH ML. PT GIVEN IV LASIX X2. PT SBA WITH FWW. PLAN FOR DC TOMORROW.
--- NOTE | 2020-10-23 19:32 | NUR ---
GOT PATIENT A NEW GOWN AND HE DIDN'T WANT TO BRUSH HIS TEETH RIGHT NOW.
--- NOTE | 2020-10-23 20:45 | NUR ---
Walking in room, in chair, encouraged to elevated legs. stated understanding. Watching tv. SL R Arm patent. CBG 102, no coverage needed, received 25 units Lantus. tolerating fluid restrictions. had indwelling BS reader on L upper arm. legs edematous. Coop. lungs clear and dim at bases, no c/o sob or pain
--- NOTE | 2020-10-24 01:58 | NUR ---
in bed turns and repositions self, on room air, no c/o pain. call light at bedside, fair to poor tolerance to fluid restriction.
--- NOTE | 2020-10-24 03:59 | NUR ---
UP TO BR, 1PA/FWW, COOP WITH ASSESSMENT. lUNGS WITH CRACKLES AT BASES, TOLERATING FLUID RESTRICTIONS. VOIDING LARGE AMOUNS OF YELLOW URINE. DAILY STANDING WEIGHT 122.7 kg.
--- NOTE | 2020-10-24 04:47 | NUR ---
pt tolerating fluid restriction. Up in chair, 1/2 of this shift, Back to bed at this time now. Has slept, On room air, Lungs with faint crackles, no SOB with exertion, has voided QS, 1PA/FWW edema LE, daily standing weight 122.7KG CBG 102 earlier on shift.
--- NOTE | 2020-10-24 07:44 | NUR ---
PT ALERT AND INTERACTIVE DURING SHIFT EXCHANGE. SITTING UP IN THE CHAIR CALL LIGHT IN REACH, DENIES IMMEDIATE NEEDS.
--- NOTE | 2020-10-24 09:27 | NUR ---
PT CONTINUES UP IN CHAIR SINCE START OF SHIFT WATCHING TV. BREAKFAST WELL TOLERATED EATS 100%
--- NOTE | 2020-10-24 10:28 | NUR ---
SPOKE WITH JACKIE LAUREANO. SHE STATES PATIENT HAS A APPOINTMENT SCHEDULED THIS WEEK ON SaturdayOctober AT 1:30PM. SHE STATES THEY DID SEND A REFERRAL FOR CARDIOLOGY AT [facility] ON 09/27/20. THEY HAVE SENT ALL RECORDS TWICE AND HAVE CALLED THREE TIMES TO CHECK ON THIS. IT IS STILL PENDING REVIEW. UPDATED DR CHUA AND STAFF.
[2020-10-24] MEDS ORDERED: METOPROLOL SUC100 MG PO (12:25)
[2020-10-24] MEDS ORDERED: DILTIAZEM 24HR240 M1 PO (12:25)
[2020-10-24] MEDS ORDERED: LISINOPRIL20 MG PO (12:26)
[2020-10-24] MEDS ORDERED: FUROSEMIDE40 MG PO (12:26)
[2020-10-24] MEDS ORDERED: POTASSIUM CHLO20 ME1 PO (12:27)
--- NOTE | 2020-10-24 12:43 | NUR ---
DR CHUA IN TO SEE PT DC ORDERS WRITTEN. ALL QUESTIONS ANSWERED PT AGREES HE IS READY TO GO HOME
--- NOTE | 2020-10-24 13:12 | NUR ---
PT ALERT, ORIENTED SITTING IN CHAIR AND WATCHING TV. PT HOPES TO DC TODAY AND FEELS HE IS READY. ADMITS AGAIN HE HAS SOME THINGS HE MUST STOP-COFFEE FOR ONE MONITOR FLUID INTAKE AND GET BACK TO GARDENING. ENCOURAGE PT TO KEEP LEGS UP WHEN SITTING. PT MENTIONED HIS HAS BOUGHT HIM A NEW RECLINER TO HELP. HE ALSO THANKED ME FOR VISITING. GAVE BLESSING WILL FOLLOW NEEDED
--- NOTE | 2020-10-24 14:56 | NUR ---
[facility] CALLED TO VERIFY PRINTED PRESCRIPTIONS OF CARDIZEM 480MG ONCE A DAY, ELEQUIS 5MG BID, METOPROLOL 200MG DAILY, AND LISINOPRIL 10MG DAILY. READ OFF ORDERS ON DISCHARGE SUMMARY. NO FURTHER QUESTIONS.
--- NOTE | 2020-10-25 16:07 | NUR ---
Heart Failure Follow Up Call. LM for patient to call this service PRN.
== END 2020-10-24 13:20 | disposition home or self-care (01) | DRG 292 ==
LOC: ED 05:42 → CCU 05:44 → MS 10-21 13:45
PROVIDERS: ADMIT Internal Medicine; ATTEND Internal Medicine
DX: I50.23 Acute on chronic systolic (congestive) heart failure (principal); I48.19 Other persistent atrial fibrillation; I48.92 Unspecified atrial flutter; Z20.822 Contact with and (suspected) exposure to COVID-19; I50.82 Biventricular heart failure; I10 Essential (primary) hypertension; E11.649 Type 2 diabetes mellitus with hypoglycemia without coma; I25.10 Atherosclerotic heart disease of native coronary artery without angina pectoris; I25.2 Old myocardial infarction; E78.5 Hyperlipidemia, unspecified; Z95.1 Presence of aortocoronary bypass graft; Z79.899 Other long term (current) drug therapy; Z79.01 Long term (current) use of anticoagulants; Z79.1 Long term (current) use of non-steroidal anti-inflammatories (NSAID); Z79.4 Long term (current) use of insulin
CPT/HCPCS: 36415; 71045; 80048; 80053; 83735; 83880; 84484; 85025; 85610; 85730; 93005; 93010; 96374; 97110; 97116; 97162; 99285-25; C9803; J1815; J1940; U0003

== ENCOUNTER → 2020-11-13 | Emergency (ER) | payer MEDICARE, OTHER ==
[~2020-11-13] VITALS: Ht 175.3 cm; Wt 121.1 kg
[~2020-11-13] MED LIST changes: +DILT-XR180 MG PO; +DILTIAZEM 24HR240 M1 PO; +FUROSEMIDE40 MG PO; +METOPROLOL SUC100 MG PO; +POTASSIUM CHLO20 ME1 PO
--- OUTSIDE RECORDS SUMMARY | 2020-11-13 16:58 | XMS ---
PreManage Notification: TR CABALLERO Security Primary Health Organisation Manager Events No recent Security Events currently on file CRITERIA MET - [facility] - 2 Visits in 30 Days CARE PROVIDERS [facility] Case Management 05/13/2020-[facility] PHONE: [phone] Dioni has no Care Guidelines for this patient. Care History Medical/Surgical 05/13/2020 [facility] - PATIENT IS [facility] ELIGIBLE, \T\middot;\T\nbsp; PLEASE REFER PATIENT TO [facility] FOR NON EMERGENT MEDICAL NEEDS. \T\middot;\T\nbsp; [facility] CAN SEE PATIENTS SAME DAY FOR APTS IF PATIENT CALLS FIRST THING IN THE MORNING. E.D. VISIT COUNT (12 MO.) [address] [place] [address] TOTAL 7 NOTE: Visits indicate total known visits. ED/UCC VISIT TRACKING (12 MO.) 11/13/2020 16:56 [facility] TYPE: Emergency COMPLAINT: - SOB 10/28/2020 15:17 [facility] TYPE: Emergency COMPLAINT: - SOB 10/17/2020 05:43 [facility] TYPE: Emergency COMPLAINT: - SOB 09/22/2020 14:32 [facility] TYPE: Emergency COMPLAINT: - BLOOD SUGAR PROBLEM 05/15/2020 09:44 [facility] TYPE: Emergency COMPLAINT: - LT GREAT TOE PAIN DIAGNOSES: - Other long filler cigar roller machine (current) drug therapy - Type 2 diabetes mellitus with diabetic neuropathy, unspecified - Blister (nonthermal), left great toe, initial encounter - Exposure to other specified factors, initial encounter - Essential (primary) hypertension - Cellulitis of left toe - Personal history of nicotine dependence - moth exterminator (current) use of insulin - Blister (nonthermal), left great toe, initial encounter 05/12/2020 14:17 [facility] TYPE: Emergency COMPLAINT: - POSSIBLE INFECTION 04/24/2020 22:19 [facility] TYPE: Emergency COMPLAINT: - LEG SPASMS DIAGNOSES: - Type 2 diabetes mellitus with diabetic neuropathy, unspecified - Essential (primary) hypertension - USP (current) use of insulin - moth exterminator (current) use of aspirin - Other long filler cigar roller machine (current) drug therapy - Paresthesia of skin INPATIENT VISIT TRACKING (12 MO.) 10/28/2020 15:18 [facility] TYPE: Observation COMPLAINT: - HYPOKALEMIA, ACUTE KIDNEY INJURY DIAGNOSES: - Hyperlipidemia, unspecified - Hyperkalemia - moth exterminator (current) use of insulin - Atherosclerotic heart disease of [place] coronary artery without angina pectoris - Acute kidney failure, unspecified - Personal history of nicotine dependence - Presence of aortocoronary bypass graft - Chronic systolic (congestive) heart failure - Type 2 diabetes mellitus without complications - Hypertensive heart disease with heart failure - Unspecified atrial fibrillation - Unspecified atrial flutter 10/17/2020 07:59 [facility] TYPE: Medical Surgical COMPLAINT: - A FIB WITH RVR DIAGNOSES: - USP (current) use of non-steroidal anti-inflammatories (NSAID) - Other persistent atrial fibrillation - Other long filler cigar roller machine (current) drug therapy - Essential (primary) hypertension - Presence of aortocoronary bypass graft - Unspecified atrial flutter - Atherosclerotic heart disease of [place] coronary artery without angina pectoris - moth exterminator (current) use of insulin - Type 2 diabetes mellitus with hypoglycemia without coma - Acute on chronic systolic (congestive) heart failure - moth exterminator (current) use of anticoagulants - Biventricular heart failure - Old myocardial infarction - Hyperlipidemia, unspecified 09/22/2020 17:12 [facility] TYPE: Critical Care COMPLAINT: - AFIB DIAGNOSES: - Type 2 diabetes mellitus without complications - Unspecified atrial fibrillation - moth exterminator (current) use of aspirin - Other intermediate (current) drug therapy - USP (current) use of non-steroidal anti-inflammatories (NSAID) - Unspecified systolic (congestive) heart failure - Atherosclerotic heart disease of [place] coronary artery without angina pectoris - Presence of aortocoronary bypass graft - Hypertensive heart disease with heart failure - USP (current) use of insulin 05/12/2020 16:46 [facility] TYPE: Medical Surgical COMPLAINT: - LEFT GREAT TOE CELLULITIS, HYPERGLYCEMIA DIAGNOSES: - Cellulitis of left toe - Type 2 diabetes mellitus with hyperglycemia - Type 2 diabetes mellitus with other skin complications - Presence of aortocoronary bypass graft - Type 2 diabetes mellitus with diabetic neuropathy, unspecified - Hyperlipidemia, unspecified - Other long filler cigar roller machine (current) drug therapy - Atherosclerotic heart disease of [place] coronary artery without angina pectoris - Essential (primary) hypertension - USP (current) use of insulin - moth exterminator (current) use of aspirin [email or web address]
--- NOTE | 2020-11-13 21:23 | EKG ---
[facility] [address] [facility] [place] [address] Signed Atrial flutter with 5:1 AV conduction Right bundle branch block Left anterior fascicular block Bifascicular block Abnormal ECG When compared with ECG of 28-OCT-2020 15:29, Left anterior fascicular block is now present T wave inversion now evident in Inferior leads Confirmed by ELVIN KUMAR MD ([id number]) on 11/13/2020 9:23:18 PM Electronically Signed By: ELVIN KUMAR MD 11/13/202122 PATIENT NAME: TR CABALLERO Electrocardiogram DATE OF : 53 PHYSICIAN: ELVIN KUMAR MD REPORT #: [id number] REPORT IS CONFIDENTIAL AND NOT TO BE RELEASED WITHOUT AUTHORIZATION
== END ==
LOC: ED 16:55
DX: I11.0 Hypertensive heart disease with heart failure (principal); I50.9 Heart failure, unspecified; I48.92 Unspecified atrial flutter; R00.1 Bradycardia, unspecified; Z20.822 Contact with and (suspected) exposure to COVID-19; E11.40 Type 2 diabetes mellitus with diabetic neuropathy, unspecified; I25.2 Old myocardial infarction; Z87.891 Personal history of nicotine dependence; Z79.899 Other long term (current) drug therapy; Z79.4 Long term (current) use of insulin
CPT/HCPCS: 71045; 80053; 83735; 83880; 84484; 85025; 93005; 93010; 96374; 99285-25; C9803; J7121; U0003

== ENCOUNTER 2020-11-18 17:55 | Emergency (ER) | payer MEDICARE, OTHER ==
[~2020-11-18] VITALS: Ht 175.3 cm; Wt 112.0 kg
--- OUTSIDE RECORDS SUMMARY | 2020-11-18 17:58 | XMS ---
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 - 2 Visits in 30 Days CARE PROVIDERS [facility] Case Management 05/13/2020-[facility] PHONE: [phone] Dioni has no Care Guidelines for this patient. Care History Medical/Surgical 05/13/2020 [facility] - PATIENT IS [facility] ELIGIBLE, \T\middot;\T\nbsp; PLEASE REFER PATIENT TO [facility] FOR NON EMERGENT MEDICAL NEEDS. \T\middot;\T\nbsp; [facility] CAN SEE PATIENTS SAME DAY FOR APTS IF PATIENT CALLS FIRST THING IN THE MORNING. E.D. VISIT COUNT (12 MO.) 8 [facility] TOTAL 8 NOTE: Visits indicate total known visits. ED/UCC VISIT TRACKING (12 MO.) 11/18/2020 17:55 [facility] [place] TYPE: Emergency COMPLAINT: - SOB 11/13/2020 16:56 [facility] [place] TYPE: Emergency COMPLAINT: - SOB DIAGNOSES: - senior living (current) use of insulin - Other penitentiary (current) drug therapy - Hypertensive heart disease with heart failure - Old myocardial infarction - Unspecified atrial flutter - Bradycardia, unspecified - Personal history of nicotine dependence - Shortness of breath - Heart failure, unspecified - Type 2 diabetes mellitus with diabetic neuropathy, unspecified 10/28/2020 15:17 [facility] [place] TYPE: Emergency COMPLAINT: - SOB 10/17/2020 05:43 [facility] [place] TYPE: Emergency COMPLAINT: - SOB 09/22/2020 14:[address] [facility] [facility] [place] TYPE: Emergency COMPLAINT: - BLOOD SUGAR PROBLEM 05/15/2020 09:44 [facility] [place] TYPE: Emergency COMPLAINT: - LT GREAT TOE PAIN DIAGNOSES: - Other supervisor intermediates (current) drug therapy - Type 2 diabetes mellitus with diabetic neuropathy, unspecified - Blister (nonthermal), left great toe, initial encounter - Exposure to other specified factors, initial encounter - Essential (primary) hypertension - Cellulitis of left toe - Personal history of nicotine dependence - senior living (current) use of insulin - Blister (nonthermal), left great toe, initial encounter 05/12/2020 14:17 [facility] TYPE: Emergency COMPLAINT: - POSSIBLE INFECTION 04/24/2020 22:19 [facility] TYPE: Emergency COMPLAINT: - LEG SPASMS DIAGNOSES: - Type 2 diabetes mellitus with diabetic neuropathy, unspecified - Essential (primary) hypertension - long term care phlebotomist (current) use of insulin - senior living (current) use of aspirin - Other penitentiary (current) drug therapy - Paresthesia of skin INPATIENT VISIT TRACKING (12 MO.) 11/13/2020 18:56 [facility] [place] TYPE: Internal Medicine DIAGNOSES: - Hyperkalemia - Atherosclerosis of coronary artery bypass graft(s) without angina pectoris - Typical atrial flutter - Wrebf-jx-xibbfqy renal failure - Atrial flutter with bradycardia 10/28/2020 15:18 [facility] [place] TYPE: Observation COMPLAINT: - HYPOKALEMIA, ACUTE KIDNEY INJURY DIAGNOSES: - Hyperlipidemia, unspecified - Hyperkalemia - senior living (current) use of insulin - Atherosclerotic heart disease of rincon coronary artery without angina pectoris - Acute [...] - A FIB WITH RVR DIAGNOSES: - senior living (current) use of non-steroidal anti-inflammatories (NSAID) - Other persistent atrial fibrillation - Other supervisor intermediates (current) drug therapy - Essential (primary) hypertension - Presence of aortocoronary bypass graft - Unspecified atrial flutter - Atherosclerotic heart disease of rincon coronary artery without angina pectoris - long term care phlebotomist (current) use of insulin - Type 2 diabetes mellitus with hypoglycemia without coma - Acute on chronic systolic (congestive) heart failure - long term care phlebotomist (current) use of anticoagulants - Biventricular heart failure - Old myocardial infarction - Hyperlipidemia, unspecified 09/22/2020 17:12 [facility] [place] TYPE: Critical Care COMPLAINT: - AFIB DIAGNOSES: - Type 2 diabetes mellitus without complications - Unspecified atrial fibrillation - long term care phlebotomist (current) use of aspirin - Other penitentiary (current) drug therapy - senior living (current) use of non-steroidal anti-inflammatories (NSAID) - Unspecified systolic (congestive) heart failure - Atherosclerotic heart disease of rincon coronary artery without angina pectoris - Presence of aortocoronary bypass graft - Hypertensive heart disease with heart failure - long term care phlebotomist (current) use of insulin 05/12/2020 16:46 [facility] [place] TYPE: Medical Surgical COMPLAINT: - LEFT GREAT TOE CELLULITIS, HYPERGLYCEMIA DIAGNOSES: - Cellulitis of left toe - Type 2 diabetes mellitus with hyperglycemia - Type 2 diabetes mellitus with other skin complications - Presence of aortocoronary bypass graft - Type 2 diabetes mellitus with diabetic neuropathy, unspecified - Hyperlipidemia, unspecified - Other penitentiary (current) drug therapy - Atherosclerotic heart disease of rincon coronary artery without angina pectoris - Essential (primary) hypertension - senior living (current) use of insulin - senior living (current) use of aspirin [id number]
--- NOTE | 2020-11-21 19:10 | EKG ---
[facility] [address] [place] [address] Signed Atrial flutter Right bundle branch block Left anterior fascicular block Bifascicular block Abnormal ECG When compared with ECG of 13-NOV-2020 17:04, No significant change was found Confirmed by TAN ABRAHAM MD ([id number]) on 11/21/2020 7:10:05 PM Electronically Signed By: TAN ABRAHAM MD 11/21/20 1910 PATIENT NAME: ADATR MEHTA Electrocardiogram DATE OF : 53 PHYSICIAN: TAN ABRAHAM MD REPORT #: [id number] REPORT IS CONFIDENTIAL AND NOT TO BE RELEASED WITHOUT AUTHORIZATION
--- NOTE | 2020-11-21 19:11 | EKG ---
[facility] [address] [facility] [place] [address] Signed Wide QRS rhythm ? Junctional rhythm with retrograde P wave condution Right bundle branch block Left anterior fascicular block Bifascicular block Abnormal ECG When compared with ECG of 18-NOV-2020 18:04, (Unconfirmed) Wide QRS rhythm has replaced Atrial flutter Confirmed by TAN ABRAHAM MD ([id number]) on 11/21/2020 7:11:16 PM Electronically Signed By: TNA ABRAHAM MD 11/21/201910 PATIENT NAME: TR CABALLERO Electrocardiogram DATE OF : 53 PHYSICIAN: TAN ABRAHAM MD REPORT #: [id number] REPORT IS CONFIDENTIAL AND NOT TO BE RELEASED WITHOUT AUTHORIZATION
== END 2020-11-18 20:27 | disposition short-term general hospital (02) ==
LOC: ED 17:55
DX: R57.0 Cardiogenic shock (principal); R00.1 Bradycardia, unspecified; I95.9 Hypotension, unspecified; Z20.822 Contact with and (suspected) exposure to COVID-19; E11.40 Type 2 diabetes mellitus with diabetic neuropathy, unspecified; I11.0 Hypertensive heart disease with heart failure; I50.9 Heart failure, unspecified; I25.2 Old myocardial infarction; Z79.899 Other long term (current) drug therapy; Z79.4 Long term (current) use of insulin
CPT/HCPCS: 71045; 80053; 83880; 84484; 85025; 92960; 93005; 93010; 99152; 99285-25; C9803; J0461; J2405; J2704; J7030; U0003

== ENCOUNTER 2022-06-18 08:42 | Emergency (ER) | payer MEDICARE, OTHER ==
[~2022-06-18] VITALS: Ht 175.3 cm; Wt 130.0 kg
[~2022-06-18 08:42] MED LIST changes: +K-TAB ER20 MEQ PO
== END 2022-06-18 10:38 | disposition home or self-care (01) ==
LOC: ED 08:42
DX: M25.512 Pain in left shoulder (principal); M54.12 Radiculopathy, cervical region; E11.9 Type 2 diabetes mellitus without complications; I11.0 Hypertensive heart disease with heart failure; I50.9 Heart failure, unspecified; I25.2 Old myocardial infarction; Z79.01 Long term (current) use of anticoagulants; Z79.899 Other long term (current) drug therapy; Z79.4 Long term (current) use of insulin
CPT/HCPCS: 73030

== ENCOUNTER 2022-07-04 15:28 | Emergency (ER) | payer MEDICARE, OTHER ==
[~2022-07-04] VITALS: Ht 175.3 cm; Wt 129.5 kg
--- OUTSIDE RECORDS SUMMARY | 2022-07-04 15:37 | XMS ---
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 Care History Medical/Surgical 05/13/2020 [facility] - PATIENT IS [facility] ELIGIBLE, \T\middot;\T\nbsp; PLEASE REFER PATIENT TO [facility] FOR NON EMERGENT MEDICAL NEEDS. \T\middot;\T\nbsp; [facility] CAN SEE PATIENTS SAME DAY FOR APTS IF PATIENT CALLS FIRST THING IN THE MORNING. E.D. VISIT COUNT (12 MO.) 3 [facility] TOTAL 3 NOTE: Visits indicate total known visits. ED/UCC VISIT TRACKING (12 MO.) 07/04/2022 15:28 [facility] [place] TYPE: Emergency COMPLAINT: - SWOLLEN LEGS, SOB 06/18/2022 08:43 [facility] [place] TYPE: Emergency COMPLAINT: - L SHOULDER PAIN DIAGNOSES: - Other long term acute care registered nurse (current) drug therapy - Old myocardial infarction - Hypertensive heart disease with heart failure - intermission coordinator (current) use of anticoagulants - Type 2 diabetes mellitus without complications - Heart failure, unspecified - Radiculopathy, cervical region - intermission coordinator (current) use of insulin - Pain in left shoulder 05/09/2022 11:[address] [facility] [place] TYPE: Emergency COMPLAINT: - SOB, WATER RETENTION DIAGNOSES: - Hypertensive heart disease with heart failure - Type 2 diabetes mellitus with diabetic neuropathy, unspecified - custodial (current) use of anticoagulants - Heart failure, unspecified - Shortness of breath - Other long term acute care registered nurse (current) drug therapy - custodial (current) use of insulin INPATIENT VISIT TRACKING (12 MO.) No inpatient visits to display in this time frame [email or web address]
[2022-07-04] MEDS ORDERED: ISOSORBIDE MONO30 MG PO (15:46)
[2022-07-04] MEDS ORDERED: [UNRECOGNIZED DRUG - OTHER] MC (15:46)
[2022-07-04] MEDS ORDERED: METOPROLOL SUCC50 MG PO (15:46)
[2022-07-04] MEDS ORDERED: VICTOZA 2-0.6 MG/0.1 SUB-Q (15:47)
--- NOTE | 2022-07-04 20:36 | EKG ---
[facility] [address] [place] [address] Signed Sinus rhythm with short [place] Right bundle branch block Left anterior fascicular block Bifascicular block Abnormal ECG When compared with ECG of 18-NOV-2020 19:31, Sinus rhythm has replaced Wide QRS rhythm Confirmed by ELVIN KUMAR MD ([id number]) on 07/04/2022 8:36:10 PM Electronically Signed By: ELVIN KUMAR MD 07/04/222035 PATIENT NAME: TR CABALLERO Electrocardiogram DATE OF : 53 PHYSICIAN: ELVIN KUMAR MD REPORT #: [id number] REPORT IS CONFIDENTIAL AND NOT TO BE RELEASED WITHOUT AUTHORIZATION
== END 2022-07-04 22:45 | disposition home or self-care (01) ==
LOC: ED 15:28
DX: I11.0 Hypertensive heart disease with heart failure (principal); I50.9 Heart failure, unspecified; E11.9 Type 2 diabetes mellitus without complications; I25.2 Old myocardial infarction; Z79.899 Other long term (current) drug therapy; Z79.4 Long term (current) use of insulin; Z20.822 Contact with and (suspected) exposure to COVID-19
CPT/HCPCS: 36415; 71045; 71250; 80053; 83735; 83880; 84484; 85025; 93005; 93010; C9803; J1940; U0003

== ENCOUNTER 2022-08-01 11:22 | Emergency (ER) | payer MEDICARE, OTHER ==
[~2022-08-01] VITALS: Ht 175.3 cm; Wt 129.5 kg
[~2022-08-01 11:22] MED LIST changes: +ISOSORBIDE MONO30 MG PO; +VICTOZA 2-0.6 MG/0.1 SUB-Q; +[UNRECOGNIZED DRUG - OTHER] MC
--- OUTSIDE RECORDS SUMMARY | 2022-08-01 11:28 | XMS ---
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 Case Management 05/13/2020-[facility] PHONE: [phone] Dioni has no Care Guidelines for this patient. Care History Medical/Surgical 05/13/2020 [facility] - PATIENT IS [facility] ELIGIBLE, \T\middot;\T\nbsp; PLEASE REFER PATIENT TO [facility] FOR NON EMERGENT MEDICAL NEEDS. \T\middot;\T\nbsp; [facility] CAN SEE PATIENTS SAME DAY FOR APTS IF PATIENT CALLS FIRST THING IN THE MORNING. E.D. VISIT COUNT (12 MO.) 4 [facility] TOTAL 4 NOTE: Visits indicate total known visits. ED/UCC VISIT TRACKING (12 MO.) 08/01/2022 11:22 [facility] [place] TYPE: Emergency COMPLAINT: - SHORTNESS OF BREATH 07/04/2022 15:28 [facility] [place] TYPE: Emergency COMPLAINT: - SWOLLEN LEGS, SOB DIAGNOSES: - Hypertensive heart disease with heart failure - Shortness of breath - marine oil terminal superintendent (current) use of insulin - Other terminal operator (current) drug therapy - Contact with and (suspected) exposure to COVID-19 - Heart failure, unspecified - Type 2 diabetes mellitus without complications - Old myocardial infarction 06/18/2022 08:43 [facility] [place] TYPE: Emergency COMPLAINT: - L SHOULDER PAIN DIAGNOSES: - assisted (current) use of anticoagulants - Type 2 diabetes mellitus without complications - Heart failure, unspecified - Radiculopathy, cervical region - assisted (current) use of insulin - Pain in left shoulder - Other terminal operator (current) drug therapy - Old myocardial infarction - Hypertensive heart disease with heart failure 05/09/2022 11:55 [facility] [place] TYPE: Emergency COMPLAINT: - SOB, WATER RETENTION DIAGNOSES: - Heart failure, unspecified - Shortness of breath - Other [facility] (current) drug therapy - marine 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
[2022-08-01] MEDS ORDERED: VAZALORE81 MG PO (11:36)
[2022-08-01] MEDS ORDERED: HYDRALAZINE HCL25 MG PO (11:37)
--- NOTE | 2022-08-01 23:32 | EKG ---
[facility] [address] [place] [address] Signed Sinus rhythm with occasional premature ventricular complexes Left axis deviation Right bundle branch block Minimal voltage criteria for LVH, may be normal variant ( R in aVL ) Septal infarct , age undetermined Abnormal ECG When compared with ECG of 04-JUL-2022 15:54, premature ventricular complexes are now present Septal infarct is now present Nonspecific T wave abnormality has replaced inverted T waves in Inferior leads Confirmed by Melvina Dean MD () on 08/01/2022 11:31:56 PM Electronically Signed By: MELVINA DEAN MD 08/01/22 [facility] PATIENT NAME: TR CABALLERO Electrocardiogram DATE OF : 53 PHYSICIAN: MELVINA DEAN MD REPORT #: [id number] REPORT IS CONFIDENTIAL AND NOT TO BE RELEASED WITHOUT AUTHORIZATION
== END 2022-08-01 16:37 | disposition home or self-care (01) ==
LOC: ED 11:22
DX: I50.9 Heart failure, unspecified (principal); E11.40 Type 2 diabetes mellitus with diabetic neuropathy, unspecified
CPT/HCPCS: 36415; 71045; 80053; 83880; 84484; 85025; 87502; 93005; 93010; 94640; C9803; U0003

== ENCOUNTER 2022-10-25 17:35 | Emergency (ER) | payer MEDICARE, OTHER ==
[~2022-10-25] VITALS: Ht 175.3 cm; Wt 128.9 kg
[~2022-10-25 17:35] MED LIST changes: +HYDRALAZINE HCL25 MG PO; +VAZALORE81 MG PO
[2022-10-25] MEDS ORDERED: DOXYCYCLINE HY100 MG PO (20:06)
== END 2022-10-25 20:21 | disposition home or self-care (01) ==
LOC: ED 17:35
DX: L03.116 Cellulitis of left lower limb (principal); I11.0 Hypertensive heart disease with heart failure; I50.9 Heart failure, unspecified; E11.40 Type 2 diabetes mellitus with diabetic neuropathy, unspecified; Z79.899 Other long term (current) drug therapy
CPT/HCPCS: 93971; 99283-25; A9270

== ENCOUNTER 2023-01-12 12:29 | Inpatient (IN) | payer MEDICARE, OTHER ==
[~2023-01-12] VITALS: Ht 175.3 cm; Wt 121.4 kg
[2023-01-12 15:31] VITALS: BP 116/66
[2023-01-12] MEDS ORDERED: HYDROCHLOROTH12.5 M1 PO (16:08)
[2023-01-12] MEDS ORDERED: INVOKANA100 MG PO (16:09)
[2023-01-12] MEDS ORDERED: METOPROLOL SUCC25 MG PO (16:12)
[2023-01-12 20:00] VITALS: BP 142/70; BP 181/77
[2023-01-13 06:38] VITALS: BP 146/78
[2023-01-13 08:05] VITALS: BP 135/76
[2023-01-13 17:15] VITALS: BP 141/89
[2023-01-13 20:00] VITALS: BP 128/64
--- NOTE | 2023-01-13 21:39 | EKG ---
[facility] [address] [place] [address] Signed Sinus tachycardia Right bundle branch block Left anterior fascicular block Bifascicular block Septal infarct (cited on or before 01-AUG-2022) Abnormal ECG When compared with ECG of 01-AUG-2022 12:37, premature ventricular complexes are no longer present Vent. rate has increased BY 46 BPM QRS duration has increased Nonspecific T wave abnormality now evident in Lateral leads Confirmed by Melvina Dean MD () on 01/13/2023 9:39:27 PM Electronically Signed By: MELVINA DEAN MD 01/13/23 2139 PATIENT NAME: TR CABALLERO Electrocardiogram DATE OF : 53 PHYSICIAN: MELVINA DEAN MD REPORT #: [id number] REPORT IS CONFIDENTIAL AND NOT TO BE RELEASED WITHOUT AUTHORIZATION
[2023-01-14 06:38] VITALS: BP 146/70
[2023-01-14 07:45] VITALS: BP 119/94
[2023-01-14 12:01] VITALS: BP 115/71
[2023-01-14 17:22] VITALS: BP 131/68
[2023-01-14 20:00] VITALS: BP 125/61
[2023-01-15 04:04] VITALS: BP 144/70
[2023-01-15 08:02] VITALS: BP 157/77
[2023-01-15 09:29] VITALS: BP 157/90
[2023-01-15 14:06] VITALS: BP 128/60
[2023-01-15 17:51] VITALS: BP 112/61
[2023-01-15 20:03] VITALS: BP 152/59
[2023-01-16 05:19] VITALS: BP 145/66
[2023-01-16 08:45] VITALS: BP 152/77
[2023-01-16 09:41] VITALS: BP 162/72
[2023-01-16 16:41] VITALS: BP 129/58
[2023-01-16 20:16] VITALS: BP 155/66
[2023-01-17 05:46] VITALS: BP 164/67
[2023-01-17 09:30] VITALS: BP 144/64
[2023-01-17 13:32] VITALS: BP 168/53
[2023-01-17 18:20] VITALS: BP 179/47
[2023-01-17 20:55] VITALS: BP 154/63
[2023-01-18 05:37] VITALS: BP 159/64
[2023-01-18 10:12] VITALS: BP 147/61
[2023-01-18 13:40] VITALS: BP 139/57
[2023-01-18 18:04] VITALS: BP 146/59
[2023-01-18 20:19] VITALS: BP 147/57
[2023-01-18] MEDS ORDERED: DOXYCYCLINE HY100 MG PO (22:49)
[2023-01-19 05:10] VITALS: BP 167/66
[2023-01-19] MEDS ORDERED: FUROSEMIDE40 MG PO (08:46)
[2023-01-19] MEDS ORDERED: K-TAB ER20 MEQ PO (08:46)
[2023-01-19 09:31] VITALS: BP 151/59
[2023-01-19 10:10] VITALS: BP 145/69
== END 2023-01-19 10:21 | disposition home or self-care (01) | DRG 872 ==
LOC: ED 12:29 → CCU 12:31 → MS 01-14 11:37 → CCU 01-14 12:00 → MS 01-15 12:40
PROVIDERS: ADMIT Family Medicine; ATTEND Internal Medicine
DX: A40.9 Streptococcal sepsis, unspecified (principal); N12 Tubulo-interstitial nephritis, not specified as acute or chronic; L03.115 Cellulitis of right lower limb; N17.9 Acute kidney failure, unspecified; I13.0 Hypertensive heart and chronic kidney disease with heart failure and stage 1 through stage 4 chronic kidney disease, or unspecified chronic kidney disease; E87.1 Hypo-osmolality and hyponatremia; E66.2 Morbid (severe) obesity with alveolar hypoventilation; Z68.41 Body mass index [BMI] 40.0-44.9, adult; I50.22 Chronic systolic (congestive) heart failure; E78.5 Hyperlipidemia, unspecified; G89.29 Other chronic pain; E11.40 Type 2 diabetes mellitus with diabetic neuropathy, unspecified; M25.551 Pain in right hip; M25.552 Pain in left hip; Z20.822 Contact with and (suspected) exposure to COVID-19; R29.6 Repeated falls; E11.22 Type 2 diabetes mellitus with diabetic chronic kidney disease; N18.9 Chronic kidney disease, unspecified; M51.9 Unspecified thoracic, thoracolumbar and lumbosacral intervertebral disc disorder; I48.91 Unspecified atrial fibrillation; I25.2 Old myocardial infarction; Z98.890 Other specified postprocedural states; Z91.198 Patient's noncompliance with other medical treatment and regimen for other reason; Z98.52 Vasectomy status; Z79.82 Long term (current) use of aspirin; Z79.4 Long term (current) use of insulin; Z79.2 Long term (current) use of antibiotics; R65.20 Severe sepsis without septic shock; Z79.899 Other long term (current) drug therapy; W01.0XXA Fall on same level from slipping, tripping and stumbling without subsequent striking against object, initial encounter; Y92.009 Unspecified place in unspecified non-institutional (private) residence as the place of occurrence of the external cause
CPT/HCPCS: 36415; 70450; 71045; 71250; 73560; 74176; 80048; 80053; 81001; 82553; 83605; 83735; 83880; 84100; 85025; 85610; 85730; 87040; 87502; 93005; 93010; 93971; 94760; 96365; 96366; 96367; 96372; 96375; 97161; 97165; 97535; 99285-25; A9270; C9803; G0378; J0696; J0878; J1650; J1815; J1940; J2543; J3370; J7030; J7060; U0002

== ENCOUNTER 2023-08-01 12:53 | Emergency (ER) | payer MEDICARE, OTHER ==
[~2023-08-01] VITALS: Ht 175.3 cm; Wt 122.8 kg
[~2023-08-01 12:53] MED LIST changes: +HYDROCHLOROTH12.5 M1 PO; +INVOKANA100 MG PO; +METOPROLOL SUCC25 MG PO
[2023-08-01 13:35] LABS: EOSINOPHILS 4.2 % (0-6); HEMATOCRIT 39.8 % (35.0-50.0); HEMOGLOBIN 13.1 g/dL (12.0-18.0); LYMPHOCYTES 18.2 % (24-44); MCH 28.4 (27-36); MCV 86.2 fl (81-99); MONOCYTES 6.1 % (0-12); NEUTROPHILS 70.5 % (39-80); PLATELET COUNT 208 K/uL (140-440); RBC 4.62 M/ul (4.3-5.7); RDW 12.6 (10.5-15.0)
[2023-08-01 13:51] LABS: BILIRUBIN, URINE NEGATIVE (negative); BLOOD/HGB, URINE SMALL (Negative); KETONE, URINE NEGATIVE (Negative); LEUK ESTERASE, URINE NEGATIVE (negative); NITRITE, URINE NEGATIVE (negative); PH, URINE 6.5 (5-7)
[2023-08-01 13:56] LABS: ALBUMIN 2.8 g/dL (3.4-5.0); ALBUMIN/GLOBULIN RATIO 0.67 (1.1-2.4); ANION GAP 8.4 (7-21); BILIRUBIN, TOTAL 0.5 ng/dL (0.2-1.0); BUN/CREATININE RATIO 11.65 (6.0-28.6); CALCIUM 8.5 mg/dL (8.5-10.1); CREATININE, SERUM 2.06 mg/dL (0.70-1.30); MAGNESIUM 1.7 mg/dL (1.8-2.4); POTASSIUM 4.4 mmol/L (3.5-5.1)
[2023-08-01 13:58] LABS: BACTERIA, URINE NONE SEEN /hpf (negative); CASTS, URINE NONE SEEN \\lpf; CRYSTALS, URINE NONE SEEN (0-1+); EPITHELIAL CELLS, URINE NONE SEEN /lpf (0-1+); WHITE BLOOD CELLS, URINE 0-1 /HPF (0-5)
[2023-08-01 13:59] LABS: COLLECTION TYPE, URINE CLEAN CATCH; REFLEX CULTURE, URINE No (No)
--- NOTE | 2023-08-01 15:23 | EKG ---
[facility] [address] [facility] [place] [address] Signed Normal sinus rhythm Possible Left atrial enlargement Right bundle branch block Left anterior fascicular block Bifascicular block Minimal voltage criteria for LVH, may be normal variant ( R in aVL ) Abnormal ECG When compared with ECG of 12-JAN-2023 12:46, Criteria for Septal infarct are no longer present T wave inversion no longer evident in Anterior leads Confirmed by NIR ARELLANO MD ([id number]) on 08/01/2023 3:22:47 PM Electronically Signed By: NIR ARELLANO 08/01/23 1523 PATIENT NAME: TR CABALLERO Electrocardiogram DATE OF : 53 PHYSICIAN: NIR ARELLANO REPORT #: [id number] REPORT IS CONFIDENTIAL AND NOT TO BE RELEASED WITHOUT AUTHORIZATION
[2023-08-01 15:35] VITALS: BP 195/92
--- NOTE | 2023-08-02 19:44 | EKG ---
[facility] [address] [facility] [place] [address] Signed Normal sinus rhythm Right bundle branch block Left anterior fascicular block Bifascicular block Abnormal ECG When compared with ECG of 01-AUG-2023 12:57, (Unconfirmed) No significant change was found Confirmed by NIR ARELLANO MD ([id number]) on 08/02/2023 7:44:26 PM Electronically Signed By: NIR ARELLANO 08/02/23 1944 PATIENT NAME: CABALLEROTROlga MEHTA Electrocardiogram DATE OF : 53 PHYSICIAN: NIR ARELLANO REPORT #: [id number] REPORT IS CONFIDENTIAL AND NOT TO BE RELEASED WITHOUT AUTHORIZATION
== END 2023-08-01 15:35 | disposition home or self-care (01) ==
LOC: ED 12:53
PROVIDERS: Emergency Medicine
DX: I11.0 Hypertensive heart disease with heart failure (principal); I50.9 Heart failure, unspecified; I45.2 Bifascicular block; E11.65 Type 2 diabetes mellitus with hyperglycemia; E66.01 Morbid (severe) obesity due to excess calories; E78.5 Hyperlipidemia, unspecified; Z79.4 Long term (current) use of insulin; Z79.82 Long term (current) use of aspirin; Z79.899 Other long term (current) drug therapy; Z79.84 Long term (current) use of oral hypoglycemic drugs
CPT/HCPCS: 36415; 71045; 80053; 81001; 83735; 83880; 84484; 85025; 93005; 93010; J1940

== ENCOUNTER 2024-03-17 19:26 | Emergency (ER) | payer MEDICARE, OTHER ==
[~2024-03-17] VITALS: Ht 175.3 cm; Wt 120.0 kg
[2024-03-17] MEDS ORDERED: ondansetron HCL 4 MG/2 ML VIAL IV ONE (19:45)
[2024-03-17] MEDS ORDERED: ASPIRIN 81 MG CHEW PO ONE (19:45)
[2024-03-17] MEDS ORDERED: METOPROLOL TARTRATE 5 MG/5 ML VIAL IV ONE ×2 (19:45→21:00)
[2024-03-17] MEDS ORDERED: NITROGLYCERIN PACKET TOP ONE ×2 (19:45→23:45)
[2024-03-17 19:57] LABS: BASOPHILS 0.9 % (0-2); EOSINOPHILS 3.3 % (0-6); HEMATOCRIT 41.9 % (35.0-50.0); HEMOGLOBIN 13.9 g/dL (12.0-18.0); MCH 28.7 (27-36); MONOCYTES 6.5 % (0-12); NEUTROPHILS 70.3 % (39-80); PLATELET COUNT 222 K/uL (140-440); RBC 4.82 M/ul (4.3-5.7); RDW 13.4 (10.5-15.0)
[2024-03-17 20:00] LABS: INR 0.94 (0.80-1.30); PROTIME 12.2 Sec (11.2-14.2)
[2024-03-17 20:15] LABS: ALBUMIN 2.7 g/dL (3.4-5.0); ALBUMIN/GLOBULIN RATIO 0.63 (1.1-2.4); ANION GAP 11.1 (7-21); BILIRUBIN, TOTAL 0.4 ng/dL (0.2-1.0); BUN/CREATININE RATIO 11.93 (6.0-28.6); CALCIUM 8.3 mg/dL (8.5-10.1); CREATININE, SERUM 2.43 mg/dL (0.70-1.30); MAGNESIUM 1.7 mg/dL (1.8-2.4); POTASSIUM 4.1 mmol/L (3.5-5.1)
[2024-03-17 20:26] LABS: INFLUENZA B NAA NEGATIVE (NEGATIVE); RESPIRATORY SYNCYTIAL VIR NAA NEGATIVE (NEGATIVE)
[2024-03-17] MEDS ORDERED: MAGNESIUM SULFATE 2 GM/50 ML BAG IV ONE (20:30)
[2024-03-17] MEDS ORDERED: SODIUM CHLORIDE 0.9% 500 ML IV PRN (20:30)
[2024-03-17] MEDS ORDERED: INSULIN LISPRO 100 UNIT/ML ML IV ONE (20:30)
[2024-03-17] MEDS ORDERED: FUROSEMIDE 20 MG/2 ML VIAL IV ONE (21:00)
[2024-03-17] MEDS ORDERED: dilTIAZem HCL 25 MG/5 ML VIAL IV ONE (21:15)
[2024-03-17 21:18] LABS: PH, VENOUS 7.288 (7.31-7.41)
--- NOTE | 2024-03-17 21:57 | EKG ---
[facility] [address] [facility] [place], [place] [address] Signed Wide QRS tachycardia Left axis deviation Right bundle branch block Minimal voltage criteria for LVH, may be normal variant ( R in aVL ) Abnormal ECG No previous ECGs available Confirmed by NIR ARELLANO MD ([id number]) on 03/17/2024 9:57:32 PM Electronically Signed By: NIR ARELLANO 03/17/24 2157 PATIENT NAME: TR CABALLERO Electrocardiogram DATE OF : 53 PHYSICIAN: NIR ARELLANO REPORT #: [id number] REPORT IS CONFIDENTIAL AND NOT TO BE RELEASED WITHOUT AUTHORIZATION
[2024-03-17] MEDS ORDERED: HEPARIN SOD,PORK IN 0.45% NACL 500 ML IV SCH (23:00)
[2024-03-17] MEDS ORDERED: HEParin SOD (PORCINE) 5,000 UNIT/ML VIAL IV ONE (23:00)
[2024-03-17] MEDS ORDERED: FUROSEMIDE 40 MG/4 ML VIAL IV ONE (23:15)
[2024-03-18 00:41] VITALS: BP 119/71
== END 2024-03-18 00:45 | disposition short-term general hospital (02) ==
LOC: ED 19:26
PROVIDERS: Family Medicine
DX: I21.4 Non-ST elevation (NSTEMI) myocardial infarction (principal); I13.0 Hypertensive heart and chronic kidney disease with heart failure and stage 1 through stage 4 chronic kidney disease, or unspecified chronic kidney disease; E11.22 Type 2 diabetes mellitus with diabetic chronic kidney disease; N18.9 Chronic kidney disease, unspecified; I50.9 Heart failure, unspecified; Z79.899 Other long term (current) drug therapy; Z79.4 Long term (current) use of insulin; Z79.82 Long term (current) use of aspirin; Z11.52 Encounter for screening for COVID-19
CPT/HCPCS: 36415; 71045; 80053; 82010; 82803; 83735; 83880; 84443; 84484; 85025; 85379; 85610; 85730; 87502; 93005; 93010; A9270; J1644; J1815; J2405; J3475; J7040; U0002

== ENCOUNTER 2024-06-22 22:24 | Inpatient (IN) | payer MEDICARE, OTHER ==
[~2024-06-22] VITALS: Ht 175.3 cm; Wt 111.6 kg
[~2024-06-22 22:24] MED LIST changes: +ASPIRIN81 MG PO; -VAZALORE81 MG PO; -VITAMIN D3125 MC1 PO; +VITAMIN D350 MC3 PO
[2024-06-22] MEDS ORDERED: ATORVASTATIN CA40 MG PO (22:39)
[2024-06-22] MEDS ORDERED: METOPROLOL SUCC50 MG PO (22:40)
[2024-06-22] MEDS ORDERED: JARDIANCE10 MG PO (22:40)
[2024-06-22 22:45] LABS: BASOPHILS 0.8 % (0-2); EOSINOPHILS 7.1 % (0-6); HEMATOCRIT 39.2 % (35.0-50.0); HEMOGLOBIN 13.3 g/dL (12.0-18.0); LYMPHOCYTES 18.2 % (24-44); MCH 29.1 (27-36); MCHC 33.8 g/dl (30-36); MONOCYTES 12.2 % (0-12); NEUTROPHILS 61.7 % (39-80); PLATELET COUNT 260 K/uL (140-440); RBC 4.56 M/ul (4.3-5.7); RDW 13.5 (10.5-15.0)
[2024-06-22] MEDS ORDERED: ALBUTEROL/IPRATROPIUM 3 ML NEB INH PRN (22:45)
[2024-06-22 23:28] LABS: ALBUMIN/GLOBULIN RATIO 0.42 (1.1-2.4); BILIRUBIN, TOTAL 0.3 ng/dL (0.2-1.0); BUN/CREATININE RATIO 9.12 (6.0-28.6); CALCIUM 8.5 mg/dL (8.5-10.1); CREATININE, SERUM 2.74 mg/dL (0.70-1.30); MAGNESIUM 1.8 mg/dL (1.8-2.4); PROTEIN, TOTAL 6.8 g/dL (6.4-8.2)
[2024-06-22] MEDS ORDERED: FUROSEMIDE 100 MG/10 ML VIAL IV ONE (23:30)
[2024-06-23] VITALS (9 sets, daily range): BP systolic 153–173; BP diastolic 68–82
[2024-06-23 00:08] LABS: INFLUENZA B NAA NEGATIVE (NEGATIVE); RESPIRATORY SYNCYTIAL VIR NAA NEGATIVE (NEGATIVE)
[2024-06-23] MEDS ORDERED: MORPHINE SULFATE 4 MG/ML VIAL IV PRN (01:15)
[2024-06-23] MEDS ORDERED: ondansetron HCL 4 MG/2 ML VIAL IV PRN (01:15)
[2024-06-23] MEDS ORDERED: ACETAMINOPHEN 325 MG TAB PO PRN (01:15)
[2024-06-23] MEDS ORDERED: Insulin Regular, Human 100 UNIT/ML ML SUB-Q SCH ×2 (01:15→08:00)
[2024-06-23] MEDS ORDERED: CEFTRIAXONE/SODIUM CHLORIDE 2 GM/100 ML PIGGYBACK IV ONE (01:15)
--- NOTE | 2024-06-23 03:48 | NUR ---
THIS RN BROUGHT PATIENT TO THE MEDICAL FLOOR. PATIENT ABLE TO TRANSFER FROM STRETCHER TO THE HOSPITAL BED. PATIENTS VITALS TAKEN. PATIENTS ADMISSION COMPLETED. ASSESMENT COMPLETED. PATIENT PLACED ON TELE #4. PATIENT IS ON 2L VIA NC. PATIENTS IV FLUSHED AND SL PER ORDER. PATIENT ORIENTED TO CALL LIGHT AND PLAN OF CARE. ALL QUESTIONS ANSWERED. PATIENT DENIES ANY NEEDS. CALL LIGHT IN REACH. BED ALARM PLACED ON FOR SAFETY. FRESH ICE WATER PROVIDED.
--- NOTE | 2024-06-23 05:04 | NUR ---
PATIENT USED THE CALL LIGHT. PATIENT UP TO USE THE URINAL TO VOID 400ML YELLOW URINE. OFFERED PULL UP AND CHANGED HIS SHORTSAND PLACED IN THE GREEN PERSONAL BAG. NO FURTHER REQUESTS. BED ALARM SET ON FOR SAFETY. WARM BLANKET PROVIDED.
--- NOTE | 2024-06-23 07:12 | NUR ---
PATIENT USED THE CALL LIGHT. UP TO USE THE URINAL AND VOIDED 350ML YELLOW URINE. PATIENT IS UP IN THE CHAIR. NO FURTHER REQUEST AT THIS TIME.
--- NOTE | 2024-06-23 07:41 | NUR ---
Patient sitting up in chair, alert and oriented x3. Patient is on 2L oxygen per nc. Patient reports he is short of breath with exertion. Respirations are non labored at this time, legs evelated. Personal supplies and call light within reach.
[2024-06-23] MEDS ORDERED: IBLOOD GLUCOSE TEST STRIP 1 EA TEST VI SCH ×2 (08:00→17:00)
--- NOTE | 2024-06-23 08:16 | NUR ---
Board has been updated and call light has been placed within reach
[2024-06-23] MEDS ORDERED: CEFTRIAXONE/SODIUM CHLORIDE 2 GM/100 ML PIGGYBACK IV SCH (09:00)
[2024-06-23] MEDS ORDERED: FUROSEMIDE 100 MG/10 ML VIAL IV SCH (09:00)
--- NOTE | 2024-06-23 10:50 | NUR ---
Spoke with Quinton. He cont. to live in housing at the [facility] with his . She is on dialysis. Daughter has moved in with them and is there cg. I gave him the number for [facility] to check if the daughter and he would qualify for state paid cg. Pt denies any needs for more DME, He does not qualify for food stamps. He is able to get food commodities through the [facility]. 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 Pt was stopped by the police for driving last week. He states he is no longer going to drive. Pt states he has and [employer] pension. Denies other needs. plans on dc to home when cleared.
--- NOTE | 2024-06-23 11:11 | NUR ---
Patient sitting up in chair watching tv, no acute distress. Patient on 2L oxygen per nc, respirations no labored resting. Patient denies needs, encouarged him to call if he has needs. Personal supplies and call light within reach.
[2024-06-23] MEDS ORDERED: ASPIRIN 81 MG CHEW PO SCH (14:04)
[2024-06-23] MEDS ORDERED: METOPROLOL SUCCINATE 50 MG TABCR PO SCH (14:04)
[2024-06-23] MEDS ORDERED: HEParin SOD (PORCINE) 5,000 UNIT/ML SDV SUB-Q SCH (14:05)
[2024-06-23] MEDS ORDERED: DEXTROSE 5% 1,000 ML IV PRN (14:15)
[2024-06-23] MEDS ORDERED: IBLOOD GLUCOSE TEST STRIP 1 EA TEST XX PRN (14:15)
[2024-06-23] MEDS ORDERED: ALBUTEROL SULFATE 0.5% 2.5 MG/0.5 ML VIAL INH PRN (14:15)
[2024-06-23] MEDS ORDERED: DEXTROSE 50% 50 ML SYR IV PRN ×2 (14:15)
[2024-06-23] MEDS ORDERED: GLUCAGON,HUMAN RECOMBINANT 1 MG/ML VIAL SUB-Q PRN (14:15)
--- NOTE | 2024-06-23 16:12 | NUR ---
MED REC COMPLETE
[2024-06-23] MEDS ORDERED: INSULIN LISPRO 100 UNIT/ML ML SUB-Q SCH (17:00)
[2024-06-23] MEDS ORDERED: GLUCOSE4 GM PO (17:21)
--- NOTE | 2024-06-23 19:15 | NUR ---
RECEIVED REPORT FROM DAY SHIFT RN. PATIENT UP TO BR WITH DIGITAL SALES EXECUTIVE. NO NEEDS NOTED. CALL LIGHT IN REACH.
[2024-06-23] MEDS ORDERED: AZITHROMYCIN 250 MG TAB PO SCH (19:38)
[2024-06-23] MEDS ORDERED: INSULIN GLARGINE-YFGN 100 UNIT/ML ML SUB-Q SCH (21:00)
[2024-06-23] MEDS ORDERED: ATORVASTATIN 40 MG TAB PO SCH (21:00)
--- NOTE | 2024-06-23 21:20 | NUR ---
PATIENTS VITALS TAKEN AND RECORDED. PATIENTS INTAKE AND OUTPUT RECORDED. PATIENTS BS TAKEN IS NOTED TO BE 68 PATIENTS BS RECHECKED AND IS NOTED TO BE 71. PATIENT PROVIDED JUICE AND SANDWICH BOX. PATIENTS PM MEDS GIVEN PER ORDER. PATIENTS IV FLUSHED AND SL PER ORDER. PATIENTS ASSESMENT COMPLETED. PATIENT IS ON 2L VIA NC. PATIENT DENIES ANY SOB. PATIENT IS SITTING UP IN BED EATING. NO FURTHER NEEDS NOTED. CALL LIGHT IN REACH. BED ALARM ON FOR SAFETY. PATIENT REMAINS ON TELE # 4.
--- NOTE | 2024-06-23 22:00 | NUR ---
PATIENT ASSISTED TO RECLINER FROM HOSPITAL BED. PATIENT IS A 1PA W/FWW. PATIENT DENIES ANY PAIN OR SOB. PATIENT REMAINS ON 2L VIA NC. PATIENTS BELONGINGS ARE WITHIN REACH. CALL LIGHT IN REACH. CHAIR ALARM ON FOR SAFETY
--- NOTE | 2024-06-23 23:20 | NUR ---
ASSISTED TO USE THE BATHROOM. PATIENT HAD A LARGE SOFT BM AND VOIDED 200ML YELLOW URINE. PATIENT IS BACK IN CHAIR WITH ALARM ON. NO FURTHER NEEDS AT THIS TIME.
[2024-06-24] VITALS (9 sets, daily range): BP systolic 138–172; BP diastolic 64–78
--- NOTE | 2024-06-24 00:51 | NUR ---
PATIENT IS RESTING IN RECLINER WITH EYES CLOSED, RR 19. CALL LIGHT IN REACH. CHAIR ALARM IN USE.
--- NOTE | 2024-06-24 02:25 | NUR ---
PATIENT IS RESTING IN RECLINER WITH EYES CLOSED, RR 19. CALL LIGHT IN REACH. CHAIR ALARM IN USE FOR PATIENT SAFETY.
--- NOTE | 2024-06-24 03:32 | NUR ---
PATIENT ASSISTED TO STAND AND USE URINAL. PATIENT ABLE TO VOID. PATIENT IS BACK IN BED RESTING. PATIENT PROVIDED WARM BLANKET. PATIENT DENIES ANY FURTHER NEEDS. CALL LIGHT IN REACH. CHAIR ALARM ON FOR SAFETY.
--- NOTE | 2024-06-24 04:12 | NUR ---
PATIENT IS RESTING IN RECLINER WITH EYES CLOSED, RR 19. CALL LIGHT IN REACH. CHAIR ALARM ON FOR SAFETY.
--- NOTE | 2024-06-24 05:18 | NUR ---
LAB IN ROOM. VITALS TAKEN AND RECORDED. INTAKE AND OUTPUT RECORDED. PATIENT UP AN AMBULATED X2 LAPS IN ROOM A 1PA W/FWW. PATIENT TOLERATED ACTIVITY WELL AND DENIED SOB W/AMBULATION. PATIENT REMAINS ON 2L VIA NC. PATIENT IS BACK IN RECLINER RESTING. PATIENT DENIES ANY FURTHER NEEDS. CALL LIGHT IN REACH. CHAIR ALARM ON FOR SAFETY.
[2024-06-24 05:24] LABS: BASOPHILS 0.5 % (0-2); EOSINOPHILS 8.4 % (0-6); HEMATOCRIT 34.3 % (35.0-50.0); HEMOGLOBIN 11.4 g/dL (12.0-18.0); LYMPHOCYTES 20.3 % (24-44); MCH 28.9 (27-36); MCHC 33.4 g/dl (30-36); MCV 86.5 fl (81-99); MONOCYTES 8.8 % (0-12); PLATELET COUNT 309 K/uL (140-440); RBC 3.96 M/ul (4.3-5.7); RDW 13.3 (10.5-15.0)
[2024-06-24 05:40] LABS: ALBUMIN 1.8 g/dL (3.4-5.0); ALBUMIN/GLOBULIN RATIO 0.37 (1.1-2.4); ANION GAP 8.9 (7-21); BILIRUBIN, TOTAL 0.2 ng/dL (0.2-1.0); BUN/CREATININE RATIO 10.39 (6.0-28.6); CALCIUM 8.7 mg/dL (8.5-10.1); CREATININE, SERUM 2.79 mg/dL (0.70-1.30); MAGNESIUM 1.8 mg/dL (1.8-2.4); POTASSIUM 3.9 mmol/L (3.5-5.1); PROTEIN, TOTAL 6.7 g/dL (6.4-8.2)
--- NOTE | 2024-06-24 05:52 | NUR ---
call light answered, pt up sba with walker-steady of feet. voided 100mls, no bm. pt back in chair, chair alarm resumed and call light in reach. ble elevated in chair.
--- NOTE | 2024-06-24 06:00 | NUR ---
PATIENT IS RESTING IN RECLINER. PATIENT DENIES ANY NEEDS. CALL LIGHT IN REACH. CHAIR ALARM ON FOR SAFETY.
--- NOTE | 2024-06-24 06:54 | NUR ---
PATIENT CALLED AND STATED "I FEEL LIKE MY BLOOD SUGARS LOW". PATIENTS BS CHECKED AND ITS 137. PATIENT DENIES ANY PAIN OR SOB. PATIENT STATED "WELL I THINK I MIGHT HAVE BEEN SLEEPING TO HARD". PATIENT IS AAOX4. PATIENT PROVIDED FRESH ICE WATER AND SUGAR FREE SEVEN UP. PATIENT IS IN RECLINER WATCHIING TV. PATIENTS CALL LIGHT IN REACH. CHAIR ALARM ON FOR SAFETY.
--- NOTE | 2024-06-24 07:47 | NUR ---
PT SITTING UP IN CHAIR, WATCHING TV AT THIS TIME. CALL LIGHT WITHIN REACH, DENIES ANY NEEDS. ALL PT CARE NEEDS MET AT THIS TIME.
[2024-06-24] MEDS ORDERED: FUROSEMIDE 100 MG/10 ML VIAL IV SCH (09:00)
[2024-06-24] MEDS ORDERED: CEFTRIAXONE/SODIUM CHLORIDE 2 GM/100 ML PIGGYBACK IV SCH (09:00)
[2024-06-24] MEDS ORDERED: SODIUM CHLORIDE 0.9% IV SCH (09:15)
[2024-06-24] MEDS ORDERED: FERUMOXYTOL IV SCH (09:15)
--- NOTE | 2024-06-24 09:34 | NUR ---
VERIFIED WITH PHARMACY ON THE FERUMOXYLTOL, THERE IS NO TEST DOSE THAT IS NEEDED PRIOR TO THIS INFUSION.
[2024-06-24] MEDS ORDERED: ferumoxytoL 1,020 MG in SODIUM CHLORIDE 0.9% 250 ML IV SCH (09:41)
--- NOTE | 2024-06-24 11:11 | NUR ---
Spoke with Quinton. He has questions about 02 and wanting oxygen on dc. Explained the day of dc they will complete an 02 qualifier if he is still on 0xygen. I will help he get 02 set up for any DME company he desires. He denies other needs.
--- NOTE | 2024-06-24 11:59 | NUR ---
Patient reported feeling sweaty and asked for a fan. BS check was 70. STEPHANY Figueroa was on break so charge nurse Keely was notified.
--- NOTE | 2024-06-24 12:15 | NUR ---
PT SITTING UP IN CHAIR, REPORTS CBG IS LOW, WAS PREVIOUSLY GIVEN PUDDING. PROVIDED APPLE JUICE/NOHEMI CRACKERS.
--- NOTE | 2024-06-24 12:18 | NUR ---
PROVIDER INFORMED OF LOW CBG THIS AFTERNOON, DC SCHEDULED MEALTIME INSULIN, AND CHANGED LANTUS TO 10UNITS AT BEDTIME. WILL CONTINUE TO MONITOR BLOOD SUGARS CLOSELY.
--- NOTE | 2024-06-24 12:38 | NUR ---
UR CLINICAL REVIEW: 2 MN FOR VERSALUS-MEETS INPATIENT CRITERIA FOR CHF MEDICARE INPT 06/23/24 @ 1937 ORDER MATCHES REG NO AUTH REQUIRED PER MEDICARE GUIDELINES DISCHARGE TO HOME WHEN STABLE. ANTICIPATE 1-2 DAYS.
--- NOTE | 2024-06-24 13:41 | NUR ---
WHILE MD ROUNDING, ORDER TO CHANGE LANTUS TO MORNING PATIENT STATES NORMALLY TAKES LONG ACTING INSULIN IN MORNING IT WORKS BEST FOR HIM, PER MD CHANGED ORDER - SEE MAR.
--- NOTE | 2024-06-24 14:24 | NUR ---
Patient was sittingupright in their chair and asked for a cup of coffee. Nothing else was requested.
--- NOTE | 2024-06-24 14:44 | NUR ---
PT RESTING IN HIS CHAIR, ASSISTED WITH URINAL. PT DENIES ANY FURTHER NEEDS, OFFERED SHOWER AND PT AGREES. NAC AWARE AND WILL WORK ON GETTING SHOWER THIS EVENING.
[2024-06-24] MEDS ORDERED: ATORVASTATIN 40 MG TAB PO SCH (16:30)
--- NOTE | 2024-06-24 16:36 | NUR ---
Patient was sitting upright in their chair. They requested and were given a cup of coffee. No other cares were requested.
--- NOTE | 2024-06-24 19:02 | NUR ---
Patient asked to get back into bed. During vitals, their temp was slightly elevated from earlier rounds. It was documented and reported to STEPHANY Figueroa. After settling into bed, no other cares were requested.
--- NOTE | 2024-06-24 19:25 | NUR ---
PATIENT IS RESTING IN RECLINER. PATIENT DENIES ANY NEEDS. CALL LIGHT IN REACH.
--- NOTE | 2024-06-24 20:16 | NUR ---
SAFE DEPOSIT CLERK OBTAINED VITALS AND I&O. SAFE DEPOSIT CLERK GAVE PT A VANILLA PUDDING UPON PT REQUEST. PT STATES NO FURTHER NEEDS AT THIS TIME CALL LIGHT WITHIN REACH.
[2024-06-24] MEDS ORDERED: INSULIN GLARGINE-YFGN 100 UNIT/ML ML SUB-Q SCH (21:00)
--- NOTE | 2024-06-24 21:00 | NUR ---
PATIENT IS RESTING IN RECLINER. PATIENTS VITALS TAKEN AND RECORDED. INTAKE AND OUTPUT RECORDED. PATIENT DENIES ANY PAIN OR SOB. PATIENT IS ON 2L VIA NC. PATIENTS BS CHECKED AN SS INSULIN GIVEN PER ORDER. PATIENTS PM MEDS GIVEN PER ORDER. PATIENTS IV FLUSHED AND SL PER ORDER. PATIENT PROVIDED FRRESH ICE WATER AND A VTMR BLANKET. PATIENTS ASSESMENT COMPLETED.
--- NOTE | 2024-06-24 21:34 | NUR ---
call light answered, pt up sba with fww from chair to bed, bed alarm on and call light and personal belongins in reach. pt denies additional needs, call light in reach. primary rn clarisse aware and updated, bed rails x3 up per pt request.
--- NOTE | 2024-06-24 22:00 | NUR ---
PATIENT IS RESTING IN BED WATCHING TV. PATIENT DENIES ANY NEEDS. CALL LIGHT IN REACH.
--- NOTE | 2024-06-24 22:57 | NUR ---
CALL LIGHT ANSWERED. PT NEEDED TO USE URIANL. SENIOR TECHNICAL SUPPORT ENGINEER ASSISTED PT TO STAND AT BEDSIDE. PT USED URINAL AND WAS ASSISTED BACK INTO BED. OUTPUT NOTED. PT STATES NO FURTHER NEEDS AT THIS TIME. CALL LIGHT WITHIN REACH AND BED ALARM ON.
[2024-06-25] VITALS (10 sets, daily range): BP systolic 139–155; BP diastolic 66–91
--- NOTE | 2024-06-25 00:18 | NUR ---
CALL LIGHT ANSWERED. PT NEEDED TO USE BATHROOM. WEIGH BOX TENDER ASSISTED PT TO STAND AT BEDSIDE WITH FWW. PT USED URINAL AND ASSISTED BACK TO BED. OUTPUT NOTED. PT GIVEN SUGAR FREE SODA UPON PT REQUEST. PT STATES NO FURTHER NEEDS AT THIS TIME. CALL LIGHT WITHIN REACH AND BED ALARM ON.
--- NOTE | 2024-06-25 00:22 | NUR ---
PATIENT JUST RETURNED TO BED FROM THE BR WITH PROCUREMENT OFFICER. PATIENT REMAINS ON 2L NC. PATIENT DENIES ANY FURTHER NEEDS. CALL LIGHT IN REACH.
--- NOTE | 2024-06-25 01:45 | NUR ---
PATIENT IS RESTING IN BED WATCHING TV. PATIENT PROVIDED DECAF COFFFE PER REQUEST. PATIENT DENIES ANY PAIN OR SOB. PATIENT DENIES ANY FURTHER NEEDS. CALL LIGHT IN REACH. BED ALARM ON FOR SAFETY. CALL LIGHT IN REACH.
--- NOTE | 2024-06-25 02:17 | NUR ---
CALL LIGHT ANSWERED. PT STATED THAT HE NEEDED TO USE URINAL AND WOULD LIKE TO MOVE TO THE CHAIR. COMPENSATOR 1PA TO STAND AT BEDSIDE AND USE URINAL. OUTPUT NOTED AND PT ASSISTED TO CHAIR. PT COMPLAINING OF DISCOMFORT AND POINTING TOWARDS ANDREW WHEELER. PRIMARY RN NOTIFED.
--- NOTE | 2024-06-25 02:23 | NUR ---
CIGARETTE SELLER ALERTED THIS RN THAT PATIENT WAS REPORTING DISCOMFORT AND POINTING TO HIS CHEST. PATIENT IS RESTING IN RECLINER. PATIENT STATED "I WAS HAVING SOME DISCOMFORT AFTER I WAS PUFFING ON THAT THING LIKE A CIGAR". PATIENT POINTED TO ACAPELLA. PATIENT STATED "I GOT BORED AND HAVE JUST BEEN PUFFING ON IT FOR THE LAST HALF HOUR". PATIENT EDUCATED THATS TO MUCH. PATIENT REPORTS BEING SOB. RT NOT AVAILABLE TO ADMIN NEB. THIS RN TO ADMIN NEB. PATIENT REFUSED NEAB AND STATED "I FEEL BETTER NOW AND I DONT NEED THAT". PATIENT CONTINUES TO REST IN RECLINER. PATIENT DENIES ANY FURTHER NEEDS. CALL LIGHT IN REACH. ROOM LIGHTS TURNED OF PER PATIEN REQUEST.
[2024-06-25] MEDS ORDERED: ALBUTEROL/IPRATROPIUM 3 ML NEB INH PRN (03:15)
--- NOTE | 2024-06-25 04:30 | NUR ---
CALL LIGHT ANSWERED. PT WANTED TO GET BACK INTO BED. MEDICAL INSURANCE CLAIMS SPECIALIST 1PA WITH FWW FROM CHAIR TO BED. MEDICAL INSURANCE CLAIMS SPECIALIST AND RN OBTAINED AND DOCUMENTED VITALS AND I&O. PT ICE WATER REFILLED. PT STATES NO FURTHER NEEDS AT THIS TIME. CALL LIGHT WITHIN REACH AND BED ALARM ON.
--- NOTE | 2024-06-25 04:41 | NUR ---
PATIENT ASSISTED TO BED FROM RECLINER BY RAYNE. PATIENT IS NOW RESTING IN BED. PATIENTS VITALS TAKEN AND RECORDED. INTAKE AND OUTPUT RECORDED. PATIENT REMAINS ON 2L VIA NC. PATIENT DENIES ANY SOB. PATIENT DENIES ANY FURTHER NEEDS. CALL LIGHT IN REACH. BED ALARM ON FOR SAFETY.
--- NOTE | 2024-06-25 05:21 | NUR ---
PATIENT CALLED AND REPORTED SOB. PATIENTS OXYGEN WAS 93 ON 2L VIA NC. PATIENT RR NOTED TO BE 24. PRN NEB GIVEN PER ORDER. PATIENT ABLE TO COUGH UP A LARGE AMOUNT OF SPUTUM. PATIENT MOVED TO RECLINER. PATIENT STATED "I FEEL SO MUCH BETTER". PATIENT REMAINS ON 2L VIA NC. PATIENT DENIES ANY FURTHER NEEDS. CALL LIGHT IN REACH. BELONGINGS ARE WITH IN REACH.
[2024-06-25 05:55] LABS: BASOPHILS 0.5 % (0-2); EOSINOPHILS 6.4 % (0-6); HEMATOCRIT 38.5 % (35.0-50.0); HEMOGLOBIN 13.1 g/dL (12.0-18.0); LYMPHOCYTES 20.9 % (24-44); MCH 29.3 (27-36); MCHC 34.1 g/dl (30-36); MCV 85.9 fl (81-99); MONOCYTES 9.8 % (0-12); NEUTROPHILS 62.4 % (39-80); PLATELET COUNT 325 K/uL (140-440); RBC 4.48 M/ul (4.3-5.7); RDW 13.5 (10.5-15.0)
--- NOTE | 2024-06-25 06:04 | NUR ---
PATIENT UP TO BR A SBA W/FWW. PATIENT ABLE TO VOID AND HAVE BM. DW OBTAINED AND RECORDED. PATIENT IS BACK IN RECLINER RESTING. PATIENT DENIES ANY FURTHER NEEDS. CALL LIGHT IN REACH.
[2024-06-25 06:06] LABS: ANION GAP 12.2 (7-21); BUN/CREATININE RATIO 12.93 (6.0-28.6); CALCIUM 8.8 mg/dL (8.5-10.1); CREATININE, SERUM 2.86 mg/dL (0.70-1.30); POTASSIUM 4.2 mmol/L (3.5-5.1)
--- NOTE | 2024-06-25 08:10 | NUR ---
RECEIVED REPORT FROM TESHA RN, PT SITTING UP AND ASLEEP IN RECLINER. CALL LIGHT WITHIN REACH, ALLOWED TO SLEEP AT THIS TIME.
--- NOTE | 2024-06-25 08:48 | NUR ---
Patient was alert and sitting up in their chair. They were in good spirits. No cares were needed.
[2024-06-25] MEDS ORDERED: INSULIN GLARGINE-YFGN 100 UNIT/ML ML SUB-Q SCH (09:00)
--- NOTE | 2024-06-25 09:27 | NUR ---
PT SITTING UP IN CHAIR, DOES NOT APPEAR IN DISTRESS THIS MORNING, STATES HE IS FEELING BETTER THIS MORNING SINCE HIS COUGHIN ATTACK LASTNIGHT. REPORTS LITTLE SLEEP THIS MORNING/NIGHT. LUNG SOUNDS ARE COARSE, PT INSTRUCTED TO USE THE ACAPELA THIS MORNING, WHICH HE DEMONSTRATED WHILE IN THE ROOM. IV ABX INFUSING ORDERED - SEE MAR. PT VS STABLE. REMAINS ON 2L NC AT 95%. 1+ EDEMA TO UPPER CALFS, 2+ EDEMA AROUND ANKLES, PULSES PALPABLE. CALL LIGHT WITHIN REACH, ALL PT CARE NEEDS MET. WILL CONTINUE TO MONITOR.
--- NOTE | 2024-06-25 09:30 | NUR ---
Spoke with Quinton. He denies needs. Has questions about assistance from a cg and if his daughter can be his state paid cg. He does not have his phone with him. I called [employer] was able to speak with Radha Reynoso. I then gave the phone to Quinton for him to complete an eval.
--- NOTE | 2024-06-25 10:03 | NUR ---
PER MD, FOLLOW UP ON WEIGHT/MEDS, HOLD LASIX DOSE TODAY, ORDER ROUTINE LASIX HOME DOSE, ORDERS INPUT TO START TOMORROW MORNING PER MD. SEE MAR.
--- NOTE | 2024-06-25 10:10 | NUR ---
PT VISITING WITH DEBURRER AT THIS TIME. IV IRON HUNG AND INFUSING NOW.
--- NOTE | 2024-06-25 10:21 | NUR ---
VISITED DURING SPIRITUAL CARE ROUNDS. PT IN OVERALL GOOD SPIRITS, ENGAGED IN CONVERSATION, NO OVERT SIGNS OF ANXIETY. DOCK WORKER PROVIDED SUPPORTIVE PRESENCE, HOSPITALITY, PRAYER. PT REQUESTED VISIT FROM MANDOLIN REPAIRER. LEFT NOTE IN SACRISTRY REQUESTING SAME.
--- NOTE | 2024-06-25 11:05 | NUR ---
Patient's IV site appeared to be leaking. STEPHANY Figueroa was informed.
--- NOTE | 2024-06-25 12:06 | NUR ---
PT SITTING UP IN CHAIR. IV IRON COMPLETED. SALINE LOCK TO (L) HAND AT THIS TIME, AWIATING LUNCH, NO OTHER ISSUES/CONCERNS. CALL LIGHT WITHIN REACH.
--- NOTE | 2024-06-25 14:39 | EKG ---
[facility] [address] [facility] [place] [address] Signed Normal sinus rhythm Right bundle branch block Left anterior fascicular block Bifascicular block Abnormal ECG When compared with ECG of 17-MAR-2024 21:24, Vent. rate has increased BY 38 BPM Nonspecific T wave abnormality has replaced inverted T waves in Inferior leads QT has lengthened Confirmed by Leana Palmer MD ([id number]) on 06/25/2024 2:39:24 PM Electronically Signed By: LEANA PALMER DO 06/25/24 1439 PATIENT NAME: TR CABALLERO Electrocardiogram DATE OF : 53 PHYSICIAN: LEANA PALMER DO REPORT #: [id number] REPORT IS CONFIDENTIAL AND NOT TO BE RELEASED WITHOUT AUTHORIZATION
--- NOTE | 2024-06-25 15:09 | NUR ---
RT in room with patient. Patient requested and was given ice water.
--- NOTE | 2024-06-25 16:15 | NUR ---
ASSISTED PT TO RESTROOM. PT AMBULATED WELL TO RESTROOM WITH WALKER. PT REMAINS ON 2L O2 NC. ASSISTED PT BACK TO BED. CALL LIGHT WITHIN REACH.
--- NOTE | 2024-06-25 17:17 | NUR ---
Patient returned to their bed after sitting up in their chair. After rounding and BS check, they went back to sleep.
--- NOTE | 2024-06-25 17:59 | NUR ---
ROUNDED ON PT. WRECKER OPERATOR AT BEDSIDE. PT UP TO BATHROOM. ATE WELL FOR DINNER.
--- NOTE | 2024-06-25 19:32 | NUR ---
Received report from STEPHANY Gonzalez. Pt sleeping soundly. White board updated. Call light within reach.
--- NOTE | 2024-06-25 20:02 | NUR ---
BATHROOM CALL LIGHT ANSWERED. PT WAS FINISHED HAVING BM. NATURAL RESOURCES INSTRUCTOR ASSITD PT WITH CLEANING AND CHANGED ATTENDS. PT ASSISTED BACK TO CHAIR. OUTPUT MEASURED AND PT STATES NO FURTHER NEEDS AT THIS TIME. CALL LIGHT WITHIN REACH.
--- NOTE | 2024-06-25 20:45 | NUR ---
PT UP IN RECLINER, DROWSY. VSS, HR SLIGHTLY GARY. DENIES PAIN. LS COARSE, MPC NOTED. 2L O2 N/C. REPORTS FEELING SOB AT REST. HRR, GARY. BTA. 1+ BLE EDEMA, BLE ELEVATED ON FOOT REST. SL LH. COCCYX REDDENED, PT ASSISTED BACK TO BED AND POSITIONED ON RIGHT SIDE. REQUIRES 1 ASSIST AND FWW FOR TRANSFERS. CALL LIGHT WITHIN REACH.
[2024-06-25] MEDS ORDERED: MELATONIN 3 MG TAB PO SCH (21:00)
--- NOTE | 2024-06-25 21:50 | NUR ---
CALL LIGHT ANSWERED. PT WANTED TO MOVE TO THE CHAIR. DIRECTOR MOTION PICTURE 1PA WITH FWW FROM BED TO CHAIR. PT STATES NO FURTHER NEEDS AT THIS TIME. CALL LIGHT WITHIN REACH.
--- NOTE | 2024-06-25 22:45 | NUR ---
PT UP IN RECLINER. STATES BED WASNT COMFORTABLE ENOUGH TO SLEEP IN. NO OTHER NEEDS AT THIS TIME.
--- NOTE | 2024-06-25 23:08 | NUR ---
CALL LIGHT ANSWERED. PT NEEDED TO USE BATHROOM. LOADER ASSISTED PT TO STAND AND USE URINAL. PT VOIDED AND ASSISTED BACK INTO CHAIR. OUTPUT MEASURED. PT GIVEN WARM BLANKET AND ANOTHER PILLOW. PT STATES NO FURTHER NEEDS AT THIS TIME. CALL LIGHT WITHIN REACH.
--- NOTE | 2024-06-26 01:20 | NUR ---
PT ASLEEP IN RECLINER. APPEARS COMFORTABLE. CALL LIGHT WITHIN REACH.
--- NOTE | 2024-06-26 02:13 | NUR ---
CALL LIGHT ANSWERED. PT WANTED TO MOVE TO THE BED. PATIENT FINANCIAL SERVICES MANAGER ENTERED ROOM AND PT STATED THAT HE ALSO NEEDED TO USE THE BATHROOM. PATIENT FINANCIAL SERVICES MANAGER ASSISTED PT TO STAND AND USE URINAL. OUTPUT MEASURED AND PT WAS THEN ASSISTED FROM CHAIR TO BED. PT ICE WATER REFILLED. PT STATES NO FURTHER NEEDS AT THIS TIME. CALL LIGHT WITHIN REACH.
--- NOTE | 2024-06-26 03:43 | NUR ---
CALL LIGHT ANSWERED. PT WANTED TO MOVE TO CHAIR. SILVICULTURE PROFESSOR 1PA PT WITH FWW FROM BED TO CHAIR. SILVICULTURE PROFESSOR BROUGHT PT A DIET SODA UPON PT REQUEST. PT STATES NO FURTHER NEEDS AT THIS TIME. CALL LIGHT WITHIN REACH.
--- NOTE | 2024-06-26 04:19 | NUR ---
PT UP AND DOWN FROM BED TO RECLINER ALL NIGHT. [place]. LS COARSE, MPC. 2L O2, WILL D/C WITH. ? D/C HOME TODAY
[2024-06-26 04:30] VITALS: BP 152/81
--- NOTE | 2024-06-26 04:34 | NUR ---
UP TO BR W/ 1 ASSIST AND FWW. VOIDED AND SMALL BM. SKIN CHECK COMPLETED W/ STEPHANY AGUERO. REDNESS TO COCCYX/DERECK AREA-BARRIER CREAM APPLIED. PT DECLINED GETTING BACK INTO BED, INSTEAD RETURNED TO RECLINER. 2L O2 IN PLACE. LS COARSE. VSS. CALL LIGHT WITHIN REACH.
--- NOTE | 2024-06-26 04:35 | NUR ---
CALL LIGHT ANSWERED. PT NEEDED TO HAVE BM. SEO PROFESSIONAL 1PA WITH FWW TO BATHROOM. PT INSTRUCTED TO USE BATHROOM CALL LIGHT WHEN DONE. BATHROOM CALL LIGHT ANSWERED. PRIMARY RN NOTIFED FOR SKIN CHECK. DAILY WIEGHT OBTAINED. PT ASSISTED BACK TO CHAIR. SEO PROFESSIONAL AND RN OBTAINED AND DOCUMENTED VITALS AND I&O. PT STATES NO FURTHER NEEDS AT THIS TIME. CALL LIGHT WITHIN REACH.
[2024-06-26 05:02] VITALS: BP 152/81
[2024-06-26 05:33] LABS: BASOPHILS 0.9 % (0-2); EOSINOPHILS 6.9 % (0-6); HEMATOCRIT 36.4 % (35.0-50.0); HEMOGLOBIN 12.3 g/dL (12.0-18.0); LYMPHOCYTES 19.9 % (24-44); MCH 29.4 (27-36); MCHC 33.8 g/dl (30-36); MCV 86.9 fl (81-99); MONOCYTES 9.1 % (0-12); NEUTROPHILS 63.2 % (39-80); PLATELET COUNT 316 K/uL (140-440); RBC 4.19 M/ul (4.3-5.7); RDW 13.5 (10.5-15.0)
[2024-06-26 05:42] LABS: ANION GAP 10.2 (7-21); BUN/CREATININE RATIO 14.08 (6.0-28.6); CALCIUM 8.8 mg/dL (8.5-10.1); CREATININE, SERUM 2.91 mg/dL (0.70-1.30); POTASSIUM 4.2 mmol/L (3.5-5.1)
--- NOTE | 2024-06-26 06:08 | NUR ---
CALL LIGHT ANSWERED. PT NEEDED TO USE BATHROOM. COMMUNITY COORDINATOR ASSISTED PT TO STAND FROM CHAIR WITH FWW AND USE URINAL. PT VOIDED AND ASSISTED TO SIT BACK INTO THE CHAIR. OUTPUT MEASURED AND PT ICE WATER REFILLED. PT STATES NO FURTHER NEEDS AT THIS TIME. CALL LIGHT WITHIN REACH.
--- NOTE | 2024-06-26 07:15 | NUR ---
REPORT RECEIVED FROM ENTERPRISE SYSTEMS MANAGER RN DIEGO. PATIENT IS SITTING UPRIGHT IN THE CHAIR WITH EYES CLOSED AND RESPIRATIONS ARE EVEN AND UNLABORED. CALL LIGHT AND PERSONAL BELONGINGS ARE WITHIN REACH.
--- NOTE | 2024-06-26 07:54 | NUR ---
Rx for [address] completed and signed by Dr. Rodgers. Face sheet, H&P, RX, O2 qual faxed to [facility] at pts request. Note added pt will dc today.
--- NOTE | 2024-06-26 08:20 | NUR ---
WENT IN TO TAKE PT VITALS. PT NEEDED TO USE URINAL AND I HAD TO TAKE PT WEIGHT. PHLEBOTOMIST ASSOCIATE WANTED TO TAKE BLOOD SUGAR AND THE DAILY WEIGHT BOTH WERE CHARTED. CALL LIGHT IS WITHIN REACH AND PT DIDNT NEED ANYTHING ELSE.
[2024-06-26] MEDS ORDERED: FUROSEMIDE 40 MG TAB PO SCH (09:00)
[2024-06-26 09:06] VITALS: BP 151/89
--- NOTE | 2024-06-26 09:28 | NUR ---
INITIAL ASSESSMENT COMPLETE. PT HAS SN, SNs INSTRUCTOR, AND LEXUS FROM CASE MANAGEMENT PRESENT IN ROOM. SN AND SNs INSTRUCTOR ADMINISTERED MORNING MEDICATIONS. PT CURRENTLY SITTING UP IN RECLINER WITH LOWER EXTREMETIES ELEVATED, CONVERSING PLEASANTLY. PT CURRENTLY REPORTS NO PAIN. NC IN PLACE AT 2L, PT LEANING FORWARD IN RECLINER. LUNG SOUNDS HAVE COARSE CRACKLES THROUGHOUT, PT REPORTS NO SOB AT THIS TIME. HEART TONES HEARD WNL, BOWEL TONES ACTIVE. PT HAS 1+ PITTING EDEMA IN HIS BLE AND REPORTS HE HAS CHRONIC NUMBNESS AND TINGLING FROM HIS BILAT SHINS TO HIS FEET. HE REPORTS VAGUE SENSATION BUT BEING UNABLE TO CLARIFY WHICH LEG IS BEING TOUCHED WITH HIS EYES CLOSED. PULSES 2+ IN ALL FOUR EXTREMETIES, CAPILLARY REFILL > 3SEC IN BILATERAL FEET. FEET ARE COOL TO THE TOUCH. PT IS HARD OF HEARING BUT ALERT AND ORIENTED. PT STATES NO FURTHER NEEDS AT THIS TIME, CALL LIGHT AND PERSONAL BELONGINGS IN REACH.
[2024-06-26 09:46] VITALS: BP 151/89
--- NOTE | 2024-06-26 09:46 | NUR ---
RN REVIEWED MEWS AND SHIFT SCREENING AT THIS TIME.
--- NOTE | 2024-06-26 09:50 | NUR ---
STEPHANY VERIFIED ON LASIX DOSE AT 0900. STATED TO HOLD THE LASIX DOSE AT THIS TIME. WITHNO FURTHER ORDERS.
--- NOTE | 2024-06-26 10:50 | NUR ---
Received a call from [facility]. They cannot fill this RX as there is issues with Medicare and equipment. I called [facility] and they state they had this pt in the past. He lost their equipment. They are willing to restart his 02 but will need to have a conversation with the pt and the . They would also like the daughter's phone number as there were issues contacting this family. Attempted to call [facility] to check for updated phone numbers. I am unable to reach anyone.
--- NOTE | 2024-06-26 11:25 | NUR ---
ROUNDING ON PT. PT UP IN RECLINER WITH BLE ELEVATED, WATCHING TELEVISION. PT REQUESTING WARM BLANKET AND SUGAR FREE PUDDING - PROVIDED. NO OTHER NEEDS AT THIS TIME, CALL LIGHT AND PERSONAL BELONGINGS IN REACH.
--- NOTE | 2024-06-26 13:33 | NUR ---
ROUNDING ON PT. PT REMAINS UP IN RECLINER WITH BLE ELEVATED. RR UNLABORED. PT REQUESTS SUGAR FREE PUDDING, PROVIDED. NO OTHER NEEDS AT THIS TIME, CALL LIGHT AND PERSONAL BELONGINGS IN REACH.
--- NOTE | 2024-06-26 14:05 | NUR ---
PT AMBULATES WITH FWW AND SBA TO RESTROOM. NEW GOWN PROVIDED. RN EDUCATED PT TO CALL WHEN FINISHED IN THE RESTROOM, PT VERBALIZES UNDERSTANDING.
[2024-06-26 14:38] VITALS: BP 166/72
[2024-06-26 14:42] VITALS: BP 166/72
--- NOTE | 2024-06-26 14:51 | NUR ---
DR DEAN IN TO ROUND ON PT, [facility] MULTIPLE RESAW OPERATOR ALSO PRESENT. DR DEAN EDUCATES PT ON CURRENT ILLNESS, ANSWERS ALL QUESTIONS, PT VERBALIZES UNDERSTANDING. PT SITTING UP IN [facility], SD IN PLACE. NO NEEDS AT THIS TIME, CALL LIGHT AND PERSONAL BELONGINGS IN REACH.
--- NOTE | 2024-06-26 15:21 | NUR ---
DC SUMMARY FAXED TO [facility].
--- NOTE | 2024-06-26 15:34 | NUR ---
[facility]
--- NOTE | 2024-06-26 17:14 | NUR ---
RN REVIEWED KENZIE, MOBILE EQUIPMENT OPERATOR TRANSFER/SUMMARY AT THIS TIME.
== END 2024-06-26 16:35 | disposition home or self-care (01) | DRG 291 ==
LOC: ED 22:24 → MS 22:25
PROVIDERS: Family Medicine; ADMIT Student in an Organized Health Care Education/Training Program; ATTEND Student in an Organized Health Care Education/Training Program
DX: I13.0 Hypertensive heart and chronic kidney disease with heart failure and stage 1 through stage 4 chronic kidney disease, or unspecified chronic kidney disease (principal); I50.23 Acute on chronic systolic (congestive) heart failure; J96.01 Acute respiratory failure with hypoxia; J18.9 Pneumonia, unspecified organism; E87.1 Hypo-osmolality and hyponatremia; N17.9 Acute kidney failure, unspecified; N18.9 Chronic kidney disease, unspecified; E11.22 Type 2 diabetes mellitus with diabetic chronic kidney disease; I25.10 Atherosclerotic heart disease of native coronary artery without angina pectoris; E78.5 Hyperlipidemia, unspecified; Z66 Do not resuscitate; I25.2 Old myocardial infarction; E11.40 Type 2 diabetes mellitus with diabetic neuropathy, unspecified; Z98.890 Other specified postprocedural states; Z98.52 Vasectomy status; Z79.4 Long term (current) use of insulin; Z79.899 Other long term (current) drug therapy; Z79.82 Long term (current) use of aspirin; Z99.81 Dependence on supplemental oxygen; Z87.891 Personal history of nicotine dependence; Z95.5 Presence of coronary angioplasty implant and graft
CPT/HCPCS: 36415; 71045; 71250; 80048; 80053; 83036; 83735; 83880; 84484; 85025; 87502; 93005; 93010; 94640; 94667; 94760; 94761; 94762; 96365; 96375; 96376; 99285-25; A9270; G0378; J0696; J1644; J1815; J1940; J7050; Q0138; U0002

== ENCOUNTER 2024-08-12 16:11 | Emergency (ER) | payer MEDICARE, OTHER ==
[~2024-08-12] VITALS: Ht 175.3 cm; Wt 113.0 kg
[~2024-08-12 16:11] MED LIST changes: +ATORVASTATIN CA40 MG PO; +GLUCOSE4 GM PO; +JARDIANCE10 MG PO
[2024-08-12 16:33] LABS: BASOPHILS 0.9 % (0-2); EOSINOPHILS 4.8 % (0-6); HEMATOCRIT 38.7 % (35.0-50.0); HEMOGLOBIN 12.9 g/dL (12.0-18.0); LYMPHOCYTES 20.4 % (24-44); MCH 29.4 (27-36); MCHC 33.4 g/dl (30-36); MONOCYTES 9.3 % (0-12); NEUTROPHILS 64.6 % (39-80); PLATELET COUNT 234 K/uL (140-440); RDW 14.5 (10.5-15.0)
[2024-08-12] MEDS ORDERED: ADENOSINE 3 MG/ML VIAL ONE (16:33)
[2024-08-12] MEDS ORDERED: ADENOSINE 3 MG/ML VIAL IV SCH (16:45)
[2024-08-12] MEDS ORDERED: ADENOSINE 3 MG/ML VIAL IV ONE (16:45)
[2024-08-12 16:54] LABS: ALBUMIN 2.4 g/dL (3.4-5.0); ALBUMIN/GLOBULIN RATIO 0.55 (1.1-2.4); ANION GAP 11.4 (7-21); BILIRUBIN, TOTAL 0.3 ng/dL (0.2-1.0); BUN/CREATININE RATIO 13.76 (6.0-28.6); CALCIUM 8.9 mg/dL (8.5-10.1); CREATININE, SERUM 2.76 mg/dL (0.70-1.30); MAGNESIUM 1.9 mg/dL (1.8-2.4); POTASSIUM 4.4 mmol/L (3.5-5.1); PROTEIN, TOTAL 6.8 g/dL (6.4-8.2)
[2024-08-12 18:24] VITALS: BP 119/69
--- NOTE | 2024-08-16 20:10 | EKG ---
[facility] [address] [place] [address] Signed Supraventricular tachycardia Left axis deviation Right bundle branch block Minimal voltage criteria for LVH, may be normal variant ( R in aVL ) Abnormal ECG When compared with ECG of 22-JUN-2024 22:34, Supraventricular tachycardia has replaced Sinus rhythm Vent. rate has increased BY 51 BPM Confirmed by Nabil Pollock MD ([id number]) on 08/16/2024 8:10:35 PM Electronically Signed By: NABIL POLLOCK MD 08/16/242009 PATIENT NAME: TR CABALLERO Electrocardiogram DATE OF : 53 PHYSICIAN: NABIL POLLOCK MD REPORT #: [id number] REPORT IS CONFIDENTIAL AND NOT TO BE RELEASED WITHOUT AUTHORIZATION
== END 2024-08-12 18:24 | disposition home or self-care (01) ==
LOC: ED 16:11
PROVIDERS: Emergency Medicine
DX: I47.10 Supraventricular tachycardia, unspecified (principal); I11.0 Hypertensive heart disease with heart failure; I50.9 Heart failure, unspecified; E11.9 Type 2 diabetes mellitus without complications; I25.2 Old myocardial infarction; Z79.4 Long term (current) use of insulin; Z79.899 Other long term (current) drug therapy
CPT/HCPCS: 36415; 71045; 80053; 83735; 83880; 84484; 85025; 93005; 93010; 96374; 99285-25; J0153

== ENCOUNTER 2024-11-06 10:16 | Emergency (ER) | payer MEDICARE, OTHER ==
[~2024-11-06] VITALS: Ht 175.3 cm; Wt 111.0 kg
[2024-11-06] MEDS ORDERED: OZEMPIC0.25 MG/02 SUB-Q (10:30)
[2024-11-06] MEDS ORDERED: ISOSORBIDE MONO30 MG PO (10:30)
[2024-11-06] MEDS ORDERED: HYDROCHLOROTH12.5 M1 PO (10:31)
[2024-11-06] MEDS ORDERED: OFLOXACIN5 ML OTIC (10:31)
[2024-11-06 10:45] LABS: BASOPHILS 0.7 % (0-2); EOSINOPHILS 7.8 % (0-6); HEMATOCRIT 35.5 % (35.0-50.0); HEMOGLOBIN 11.9 g/dL (12.0-18.0); LYMPHOCYTES 20.2 % (24-44); MCH 29.5 (27-36); MCHC 33.4 g/dl (30-36); MCV 88.3 fl (81-99); MONOCYTES 10.2 % (0-12); NEUTROPHILS 61.1 % (39-80); PLATELET COUNT 194 K/uL (140-440); RBC 4.02 M/ul (4.3-5.7); RDW 13.6 (10.5-15.0)
[2024-11-06 11:02] LABS: ALBUMIN 2.7 g/dL (3.4-5.0); ALBUMIN/GLOBULIN RATIO 0.61 (1.1-2.4); ANION GAP 10.6 (7-21); BILIRUBIN, TOTAL 0.2 mg/dL (0.2-1.0); BUN/CREATININE RATIO 21.15 (6.0-28.6); CREATININE, SERUM 3.12 mg/dL (0.70-1.30); MAGNESIUM 1.8 mg/dL (1.8-2.4); POTASSIUM 4.6 mmol/L (3.5-5.1); PROTEIN, TOTAL 7.1 g/dL (6.4-8.2)
[2024-11-06 14:41] VITALS: BP 182/92
--- NOTE | 2024-11-07 15:49 | EKG ---
[facility] [address] [place] [address] Signed Undetermined rhythm Right bundle branch block Left anterior fascicular block Bifascicular block Minimal voltage criteria for LVH, may be normal variant ( R in aVL ) Abnormal ECG When compared with ECG of 12-AUG-2024 16:29, Current undetermined rhythm precludes rhythm comparison, needs review Confirmed by Leana Palmer DO ([id number]) on 11/07/2024 3:49:08 PM Electronically Signed By: LEANA PALMER DO 11/07/24 1549 PATIENT NAME: TR CABALLERO Electrocardiogram DATE OF : 53 PHYSICIAN: LEANA PALMER DO REPORT #: [id number] REPORT IS CONFIDENTIAL AND NOT TO BE RELEASED WITHOUT AUTHORIZATION
== END 2024-11-06 14:43 | disposition home or self-care (01) ==
LOC: ED 10:16
PROVIDERS: Emergency Medicine
DX: R00.2 Palpitations (principal); I11.0 Hypertensive heart disease with heart failure; I50.9 Heart failure, unspecified; I25.2 Old myocardial infarction; E11.40 Type 2 diabetes mellitus with diabetic neuropathy, unspecified; Z79.85 Long-term (current) use of injectable non-insulin antidiabetic drugs; Z79.4 Long term (current) use of insulin; Z79.82 Long term (current) use of aspirin; Z79.84 Long term (current) use of oral hypoglycemic drugs; Z79.899 Other long term (current) drug therapy
CPT/HCPCS: 36415; 71045; 80053; 83735; 83880; 84484; 85025; 93005; 93010; 99285-25

== ENCOUNTER 2024-11-14 09:08 | Emergency (ER) | payer MEDICARE, OTHER ==
[~2024-11-14] VITALS: Ht 175.3 cm; Wt 107.9 kg
[~2024-11-14 09:08] MED LIST changes: +OFLOXACIN5 ML OTIC; +OZEMPIC0.25 MG/02 SUB-Q
[2024-11-14 09:27] LABS: BASOPHILS 0.8 % (0-2); EOSINOPHILS 9.8 % (0-6); HEMATOCRIT 33.6 % (35.0-50.0); HEMOGLOBIN 11.6 g/dL (12.0-18.0); LYMPHOCYTES 23.9 % (24-44); MCH 30.1 (27-36); MCHC 34.6 g/dl (30-36); MCV 86.9 fl (81-99); MONOCYTES 10.4 % (0-12); NEUTROPHILS 55.1 % (39-80); PLATELET COUNT 193 K/uL (140-440); RBC 3.87 M/ul (4.3-5.7); RDW 13.8 (10.5-15.0)
[2024-11-14 09:41] LABS: ALBUMIN 2.7 g/dL (3.4-5.0); ALBUMIN/GLOBULIN RATIO 0.63 (1.1-2.4); ANION GAP 11.9 (7-21); BILIRUBIN, TOTAL 0.4 mg/dL (0.2-1.0); BUN/CREATININE RATIO 19.44 (6.0-28.6); CALCIUM 8.2 mg/dL (8.5-10.1); CREATININE, SERUM 3.24 mg/dL (0.70-1.30); POTASSIUM 4.9 mmol/L (3.5-5.1)
[2024-11-14] MEDS ORDERED: ASPIRIN 81 MG CHEW PO ONE (11:15)
[2024-11-14] MEDS ORDERED: CLOPIDOGREL BISULFATE 75 MG TAB PO ONE (11:15)
[2024-11-14 14:33] VITALS: BP 185/86
== END 2024-11-14 14:35 | disposition short-term general hospital (02) ==
LOC: ED 09:08
PROVIDERS: Emergency Medicine
DX: G45.9 Transient cerebral ischemic attack, unspecified (principal); I65.21 Occlusion and stenosis of right carotid artery; I11.0 Hypertensive heart disease with heart failure; I50.9 Heart failure, unspecified; I25.2 Old myocardial infarction; E11.40 Type 2 diabetes mellitus with diabetic neuropathy, unspecified; Z79.899 Other long term (current) drug therapy
CPT/HCPCS: 36415; 70450; 80053; 85025; 93880; A9270

== ENCOUNTER 2025-02-13 18:28 | Emergency (ER) | payer MEDICARE, OTHER ==
[~2025-02-13] VITALS: Ht 175.3 cm; Wt 113.4 kg
[2025-02-13] MEDS ORDERED: ALBUTEROL/IPRATROPIUM 3 ML NEB INH PRN (18:45)
[2025-02-13 18:59] LABS: BASOPHILS 0.5 % (0.2-1.2); EOSINOPHILS 5.4 % (0.8-7.0); HEMATOCRIT 31.7 % (40.1-51.0); HEMOGLOBIN 10.4 g/dL (13.7-17.5); LYMPHOCYTES 17.5 % (21.8-53.1); MCH 29.1 PG (25.7-32.2); MCHC 32.8 g/dL (32.3-36.5); MCV 88.5 fL (79.0-92.2); NEUTROPHILS 67.2 % (34.0-67.9); PLATELET COUNT 182 K/uL (163-337); RBC 3.58 M/uL (4.63-6.08)
[2025-02-13] MEDS ORDERED: ZOLPIDEM TARTRAT5 MG PO (19:11)
[2025-02-13] MEDS ORDERED: BAQSIMI3 MG NAS (19:11)
[2025-02-13] MEDS ORDERED: CLOPIDOGREL75 MG PO (19:12)
[2025-02-13 19:14] LABS: ALBUMIN 2.8 g/dL (3.4-5.0); ALBUMIN/GLOBULIN RATIO 0.7 (1.1-2.4); BILIRUBIN, TOTAL 0.3 mg/dL (0.2-1.0); BUN/CREATININE RATIO 16.07 (6.0-28.6); CALCIUM 7.6 mg/dL (8.5-10.1); CREATININE, SERUM 4.23 mg/dL (0.70-1.30); MAGNESIUM 1.8 mg/dL (1.8-2.4); PROTEIN, TOTAL 6.8 g/dL (6.4-8.2)
[2025-02-13] MEDS ORDERED: methylPREDNISolone SOD SUCC 125 MG/2 ML VIAL IV ONE (20:00)
[2025-02-13] MEDS ORDERED: FUROSEMIDE 40 MG/4 ML VIAL IV ONE (20:00)
[2025-02-13] MEDS ORDERED: CALCIUM CARBONATE 500 MG CHEW PO ONE (20:00)
[2025-02-13] MEDS ORDERED: ALBUTEROL SULFATE 8 GM HOME.PACK INH ONE (21:15)
[2025-02-13 21:38] VITALS: BP 190/79
--- NOTE | 2025-02-14 22:34 | EKG ---
[facility] [address] [place] [address] Signed Sinus bradycardia with blocked premature atrial complexes Right bundle branch block Left anterior fascicular block Bifascicular block Minimal voltage criteria for LVH, may be normal variant ( R in aVL ) Abnormal ECG When compared with ECG of 06-NOV-2024 10:17, No significant change was found Confirmed by Melvina Dean MD () on 02/14/2025 10:33:50 PM Electronically Signed By: MELVINA DEAN MD 02/14/25 2234 PATIENT NAME: TR CABALLERO Electrocardiogram DATE OF : 53 PHYSICIAN: MELVINA DEAN MD REPORT #: [id number] REPORT IS CONFIDENTIAL AND NOT TO BE RELEASED WITHOUT AUTHORIZATION
== END 2025-02-13 21:38 | disposition home or self-care (01) ==
LOC: ED 18:28
PROVIDERS: Emergency Medicine
DX: I11.0 Hypertensive heart disease with heart failure (principal); I50.9 Heart failure, unspecified; J44.9 Chronic obstructive pulmonary disease, unspecified; I25.2 Old myocardial infarction; E11.40 Type 2 diabetes mellitus with diabetic neuropathy, unspecified; Z79.82 Long term (current) use of aspirin; Z79.4 Long term (current) use of insulin; Z79.02 Long term (current) use of antithrombotics/antiplatelets
CPT/HCPCS: 36415; 71045; 80053; 83735; 83880; 84484; 85025; 93005; 93010; 94664; 96374; 96375; 99285-25; J1938; J2919

== ENCOUNTER 2025-03-05 09:54 | Emergency (ER) | payer MEDICARE, OTHER ==
[~2025-03-05] VITALS: Ht 175.3 cm; Wt 118.0 kg
[~2025-03-05 09:54] MED LIST changes: +BAQSIMI3 MG NAS; +CLOPIDOGREL75 MG PO; +ZOLPIDEM TARTRAT5 MG PO
[2025-03-05 10:12] LABS: BASOPHILS 0.2 % (0.2-1.2); EOSINOPHILS 4.8 % (0.8-7.0); LYMPHOCYTES 13.1 % (21.8-53.1); MCH 29.2 PG (25.7-32.2); MCHC 32.4 g/dL (32.3-36.5); MCV 90.4 fL (79.0-92.2); MONOCYTES 6.4 % (5.3-12.2); NEUTROPHILS 75.1 % (34.0-67.9); RBC 3.42 M/uL (4.63-6.08)
[2025-03-05 10:30] LABS: BLOOD/HGB, URINE SMALL (Negative); KETONE, URINE NEGATIVE (Negative); LEUK ESTERASE, URINE NEGATIVE (negative); NITRITE, URINE NEGATIVE (negative)
[2025-03-05 10:36] LABS: EPITHELIAL CELLS, URINE SQUAMOUS 1+ /lpf (0-1+)
[2025-03-05 10:37] LABS: BACTERIA, URINE RARE /hpf (negative); CRYSTALS, URINE NONE SEEN (0-1+)
[2025-03-05 10:38] LABS: CASTS, URINE GRANULAR 2+ \\lpf; REFLEX CULTURE, URINE No (No)
[2025-03-05 10:46] LABS: ALT (SGPT) 24.0 U/L (14-59); AST (SGOT) 12.0 U/L (15-37); GLOMERULAR FILTRATION RATE,EST 15.0 mL/min (>60); PROTEIN, TOTAL 6.6 g/dL (6.4-8.2); UREA NITROGEN 54.0 mg/dL (7-18)
[2025-03-05 14:23] VITALS: BP 147/65
--- NOTE | 2025-03-07 17:46 | EKG ---
[facility] [address] [facility] [place] [address] Signed Sinus bradycardia with sinus arrhythmia Possible Left atrial enlargement Right bundle branch block Left anterior fascicular block Bifascicular block Abnormal ECG When compared with ECG of 13-FEB-2025 18:51, premature atrial complexes are no longer present Confirmed by Ziggy Palmer DO ([id number]) on 03/07/2025 5:46:17 PM Electronically Signed By: ZIGGY PALMER DO 03/07/25 1746 PATIENT NAME: TR CABALLERO JANINE Electrocardiogram DATE OF : 53 PHYSICIAN: ZIGGY PALMER DO REPORT #: [id number] REPORT IS CONFIDENTIAL AND NOT TO BE RELEASED WITHOUT AUTHORIZATION
== END 2025-03-05 14:22 | disposition short-term general hospital (02) ==
LOC: ED 09:54
PROVIDERS: Emergency Medicine
DX: I21.4 Non-ST elevation (NSTEMI) myocardial infarction (principal); I11.0 Hypertensive heart disease with heart failure; I50.9 Heart failure, unspecified; E11.40 Type 2 diabetes mellitus with diabetic neuropathy, unspecified; I25.2 Old myocardial infarction; Z79.01 Long term (current) use of anticoagulants; Z79.4 Long term (current) use of insulin; Z79.82 Long term (current) use of aspirin; Z79.84 Long term (current) use of oral hypoglycemic drugs; Z79.899 Other long term (current) drug therapy
CPT/HCPCS: 36415; 71045; 80053; 81001; 83735; 83880; 84484; 85025; 93005; 93010; 99285-25

== ENCOUNTER 2025-05-20 22:05 | Emergency (ER) | payer MEDICARE, OTHER ==
[~2025-05-20] VITALS: Ht 175.3 cm; Wt 110.5 kg
[2025-05-21 01:17] VITALS: BP 178/75
== END 2025-05-21 01:19 | disposition home or self-care (01) ==
LOC: ED 22:05
DX: S90.411A Abrasion, right great toe, initial encounter (principal); S90.414A Abrasion, right lesser toe(s), initial encounter; E11.42 Type 2 diabetes mellitus with diabetic polyneuropathy; I11.0 Hypertensive heart disease with heart failure; I50.9 Heart failure, unspecified; I25.2 Old myocardial infarction; Z79.02 Long term (current) use of antithrombotics/antiplatelets; Z79.4 Long term (current) use of insulin; Z79.82 Long term (current) use of aspirin; Z79.84 Long term (current) use of oral hypoglycemic drugs; Z79.899 Other long term (current) drug therapy; W23.0XXA Caught, crushed, jammed, or pinched between moving objects, initial encounter
CPT/HCPCS: 73630; 99283

== ENCOUNTER 2025-07-28 17:46 | Emergency (ER) | payer MEDICARE, OTHER ==
[~2025-07-28] VITALS: Ht 175.3 cm; Wt 111.1 kg
--- OUTSIDE RECORDS SUMMARY | ~2025-07-28 | XMS | Continuity of Care Document ---
Demographics + + + | Address | [address] | | | [place] [address] | + + + | Preferred Language | Unknown | + + + | Marital Status | | + + + | Evangelical Affiliation | Unknown | + + + | Race | or | + + + | Ethnic Group | Not or | + + + Author + + + | Author | [facility] | + + + | Organization | [facility] | + + + | Address | [address] | | | [place] [address] | + + + | Phone | | + + + Care Team Providers + + + + | Care Marriage Counselor Minister Name | Role | Phone | + + + + Unavailable | Unavailable | + + + + Unavailable | Unavailable | + + + + Allergies and Intolerances + + + + + + | date | description | facility | reaction | severity | + + + + + + | 2025-05-20 | UNK | [facility] - | (no reaction) | Mild | | 00:00 | | [facility] | | | + + + + + + Encounters No information. Functional Status No information. Immunizations No information. Medications + + + + | date | description | facility | + + + + | (no date) | LISINOPRIL | [facility] | | | | [facility] | + + + + | (no date) | EMPAGLIFLOZIN | [facility] | | | | [facility] | + + + + | (no date) | INSULIN ASPART | [facility] | | | | [facility] | + + + + | (no date) | AMLODIPINE BESYLATE | [facility] | | | | [facility] | + + + + | (no date) | LISINOPRIL | [facility] | | | | [facility] | + + + + | (no date) | HYDROCHLOROTHIAZIDE | [facility] | | | | [facility] | + + + + | (no date) | CELECOXIB | [facility] | | | | [facility] | + + + + | (no date) | HYDROCHLOROTHIAZIDE | [facility] | | | | [facility] | + + + + | (no date) | CEPHALEXIN | [facility] | | | | [facility] | + + + + | (no date) | Glucagon | [facility] | | | | [facility] | + + + + | (no date) | ATORVASTATIN | [facility] | | | | [facility] | + + + + | (no date) | INSULIN GLARGINE | [facility] | | | | [facility] | + + + + | (no date) | Aspirin | [facility] | | | | [facility] | + + + + | (no date) | CEPHALEXIN | [facility] | | | | [facility] | + + + + | (no date) | CLOPIDOGREL BISULFATE | [facility] | | | | [facility] | + + + + | (no date) | DEXTROSE | [facility] | | | | [facility] | + + + + | (no date) | TERBINAFINE HCL | [facility] | | | | [facility] | + + + + | (no date) | LISINOPRIL | [facility] | | | | [facility] | + + + + | (no date) | ISOSORBIDE MONONITRATE | [facility] | | | | [facility] | + + + + | (no date) | ASPIRIN | [facility] | | | | [facility] | + + + + | (no date) | ATORVASTATIN CALCIUM | [facility] | | | | [facility] | + + + + | (no date) | Cholecalciferol (Vitamin | [facility] | | | D3) | [facility] | + + + + | (no date) | DILTIAZEM HCL | [facility] | | | | [facility] | + + + + | (no date) | CHLORHEXIDINE GLUCONATE | [facility] | | | | [facility] | + + + + | (no date) | INSULIN | [facility] | | | MATHEW GAITANANLOG | [facility] | + + + + | (no date) | ZOLPIDEM TARTRATE | [facility] | | | | [facility] | + + + + | (no date) | metFORMIN HCL | [facility] | | | | [facility] | + + + + | (no date) | METFORMIN HCL | [facility] | | | | [facility] | + + + + | (no date) | metFORMIN HCL | [facility] | | | | [facility] | + + + + | (no date) | METOPROLOL SUCCINATE | [facility] | | | | [facility] | + + + + Problems + + + + | date | description | facility | + + + + | 2025-05-21 00:00 | Abrasion of right foot or | [facility] | | | toe | [facility] | + + + + Procedures No information. Results/Labs No information. Social History +--------+ + + | date | description | facility | +--------+ + + Vital Signs + + + +---------+ | date | measurement | value | units | + + + +---------+ | 2025-05-20 00:00 | BMI | 36.0 | kg/m2 | + + + +---------+ | 2025-05-20 00:00 | height_metric | 175.26 | cm | + + + +---------+ | 2025-05-20 00:00 | height_standard | 69 | in | + + + +---------+ | 2025-05-20 00:00 | weight_metric | 110.501 | kg | + + + +---------+ | 2025-05-20 00:00 | weight_standard | 243.612 | lb | + + + +---------+ | 2025-05-21 00:00 | BP_diastolic | 75 | mmHg | + + + +---------+ | 2025-05-21 00:00 | BP_systolic | 178 | mmHg | + + + +---------+ | 2025-05-21 00:00 | heart_rate | 52 | /min | + + + +---------+ | 2025-05-21 00:00 | o2_saturation | 98 | % | + + + +---------+ | 2025-05-21 00:00 | respiration_rate | 14 | /min | + + + +---------+ | 2025-05-21 00:00 | | 98.2 | F | | | temperature_standar | | | | | d | | | + + + +---------+"
[2025-07-28] MEDS ORDERED: ALBUTEROL/IPRATROPIUM 3 ML NEB INH PRN (18:00)
[2025-07-28] MEDS ORDERED: ALBUTEROL/IPRATROPIUM 3 ML NEB INH ONE (19:15)
[2025-07-28 19:43] LABS: BASOPHILS 0.4 % (0.2-1.2); EOSINOPHILS 1.1 % (0.8-7.0); LYMPHOCYTES 9.5 % (21.8-53.1); MCH 28.2 PG (25.7-32.2); MCHC 32.4 g/dL (32.3-36.5); MCV 86.9 fL (79.0-92.2); MONOCYTES 8.6 % (5.3-12.2); NEUTROPHILS 79.7 % (34.0-67.9); RBC 3.44 M/uL (4.63-6.08)
[2025-07-28 20:00] LABS: ALT (SGPT) 25 U/L (14-59); AST (SGOT) 14 U/L (15-37); GLOMERULAR FILTRATION RATE,EST 8 mL/min (>60); PROTEIN, TOTAL 7.2 g/dL (6.4-8.2); UREA NITROGEN 117 mg/dL (7-18)
[2025-07-28] MEDS ORDERED: FUROSEMIDE 100 MG/10 ML VIAL IV ONE (20:00)
[2025-07-28 20:06] LABS: CORONAVIRUS COVID-19 AG NEGATIVE (NEGATIVE)
[2025-07-28] MEDS ORDERED: ASPIRIN 81 MG CHEW PO ONE (20:15)
[2025-07-28 20:39] LABS: LACTIC ACID, BLOOD 0.5 mmol/L (0.4-2.0)
[2025-07-28] MEDS ORDERED: NITROGLYCERIN 50MG/D5W 250 ML IV SCH (20:45)
[2025-07-28] MEDS ORDERED: HEPARIN SOD,PORK IN 0.45% NACL 500 ML IV SCH (21:00)
[2025-07-28 21:04] LABS: INR 1.1 (0.80-1.30); PROTIME 13.5 Sec (11.2-14.2)
[2025-07-28] MEDS ORDERED: LORazepam 2 MG/ML VIAL IV ONE (21:30)
[2025-07-28] MEDS ORDERED: LIDOCAINE 2% VISCOUS 6 ML SYR TOP ONE (22:00)
[2025-07-29 01:58] VITALS: BP 112/99
--- NOTE | 2025-07-30 22:05 | EKG ---
[facility] [address] [facility] [place] [address] Signed Sinus bradycardia Left axis deviation Right bundle branch block Septal infarct (cited on or before 28-JUL-2025) Abnormal ECG When compared with ECG of 05-MAR-2025 10:03, No significant change was found Confirmed by Melvina Dean MD () on 07/30/2025 10:05:12 PM Electronically Signed By: MELVINA DEAN MD 07/30/252204 PATIENT NAME: TR CABALLERO Electrocardiogram DATE OF : 53 PHYSICIAN: MELVINA DEAN MD REPORT #: [id number] REPORT IS CONFIDENTIAL AND NOT TO BE RELEASED WITHOUT AUTHORIZATION
== END 2025-07-29 01:55 | disposition short-term general hospital (02) ==
LOC: ED 17:46
PROVIDERS: Internal Medicine
DX: I21.4 Non-ST elevation (NSTEMI) myocardial infarction (principal); I11.0 Hypertensive heart disease with heart failure; I50.9 Heart failure, unspecified; E11.40 Type 2 diabetes mellitus with diabetic neuropathy, unspecified; Z79.02 Long term (current) use of antithrombotics/antiplatelets; Z79.4 Long term (current) use of insulin; Z79.82 Long term (current) use of aspirin
CPT/HCPCS: 36415; 51702; 71045; 80053; 82803; 83605; 83880; 84484; 85025; 85610; 85730; 87040; 87070; 87077; 87186; 87205; 93005; 93010; 94640; 96365; 96375; 99285-25; A9270; J0696; J1644; J1938; J2060; J2919

== ENCOUNTER 2025-08-22 10:51 | Emergency (ER) | payer MEDICARE, OTHER ==
[~2025-08-22] VITALS: Ht 175.3 cm; Wt 108.1 kg
--- OUTSIDE RECORDS SUMMARY | ~2025-08-22 | XMS | Continuity of Care Document ---
Demographics + + + | Address | [address] | | | [place] [address] | + + + | Preferred Language | Unknown | + + + | Marital Status | Unknown | + + + | Bahai Affiliation | Unknown | + + + | Race | or | + + + | Ethnic Group | Not or | + + + Author + + + | Author | [facility] | + + + | Organization | [facility] | + + + | Address | [address] | | | [place] [address] | + + + | Phone | | + + + Care Team Providers + + + + | Care Truck Assembler Name | Role | Phone | + + + + Unavailable | Unavailable | + + + + Allergies No information. Encounters No information. Functional Status No information. Immunizations No information. Medications + + + + | date | description | facility | + + + + | (no date) | LISINOPRIL | [facility] [place] [facility] [place] | | | | [facility] | + + + + | (no date) | EMPAGLIFLOZIN | [facility] [place] [facility] | | | | [facility] | + + + + | (no date) | INSULIN ASPART | [facility] [place] [facility] | | | | [facility] | + + + + | (no date) | AMLODIPINE BESYLATE | [facility] [place] [facility] | | | | [facility] | + + + + | (no date) | LISINOPRIL | [facility] [place] | | | | [facility] | + + + + | (no date) | HYDROCHLOROTHIAZIDE | [facility] [place] [place] | | | | [facility] | + + + + | (no date) | CELECOXIB | [facility] [place] | | | | [facility] | + + + + | (no date) | HYDROCHLOROTHIAZIDE | [facility] [place] [place] | | | | [facility] | + + + + | (no date) | CEPHALEXIN | [facility] | | | | [facility] | + + + + | (no date) | Glucagon | [facility] [place] | | | | [facility] | + + + + | (no date) | ATORVASTATIN | [facility] [place] | | | | [facility] | + + + + | (no date) | INSULIN GLARGINE | [facility] [place] [place] | | | | [facility] | + + + + | (no date) | Aspirin | [facility] [place] [place] | | | | [facility] | + + + + | (no date) | CEPHALEXIN | [facility] [place] [place] | | | | [facility] | + + + + | (no date) | CLOPIDOGREL BISULFATE | [facility] | | | | [facility] | + + + + | (no date) | DEXTROSE | [facility] [place] | | | | [facility] | + + + + | (no date) | TERBINAFINE HCL | [facility] [place] [facility] | | | | [facility] | + + + + | (no date) | LISINOPRIL | [facility] [place] [facility] | | | | [facility] | + + + + | (no date) | ISOSORBIDE MONONITRATE | [facility] [place] [facility] | | | | [facility] | + + + + | (no date) | ASPIRIN | [facility] [place] [place] | | | | [facility] | + + + + | (no date) | ATORVASTATIN CALCIUM | [facility] [place] | | | | [facility] | + + + + | (no date) | Cholecalciferol (Vitamin | [facility] [place] | | | D3) | [facility] | + + + + | (no date) | DILTIAZEM HCL | [facility] [place] | | | | [facility] | + + + + | (no date) | CHLORHEXIDINE GLUCONATE | [facility] [place] | | | | [facility] | + + + + | (no date) | INSULIN | [facility] [place] | | | HUM. ARNIERECATIFLOG | [facility] | + + + + | (no date) | ZOLPIDEM TARTRATE | [facility] [place] | | | | [facility] | + + + + | (no date) | metFORMIN HCL | [facility] [place] | | | | [facility] | + + + + | (no date) | METFORMIN HCL | [facility] [place] | | | | [facility] | + + + + | (no date) | metFORMIN HCL | [facility] [place] | | | | [facility] | + + + + | (no date) | METOPROLOL SUCCINATE | [facility] [place] | | | | [facility] | + + + + Problems No information. Procedures No information. Results/Labs No information. Social History +--------+ + + | date | description | facility | +--------+ + + Vital Signs No information."
[2025-08-22] MEDS ORDERED: HYDROmorphone HCL 1 MG/ML SYR IM ONE (11:00)
[2025-08-22] MEDS ORDERED: AMIODARONE HCL200 MG (11:10)
[2025-08-22] MEDS ORDERED: ELIQUIS2.5 MG (11:10)
[2025-08-22] MEDS ORDERED: LORAZEPAM0.5 MG PO (11:10)
[2025-08-22] MEDS ORDERED: FUROSEMIDE80 MG (11:10)
[2025-08-22] MEDS ORDERED: AMLODIPINE BESY10 MG (11:10)
[2025-08-22] MEDS ORDERED: NALTREXONE HCL50 MG PO (11:47)
== END 2025-08-22 12:30 | disposition home or self-care (01) ==
LOC: ED 10:51
DX: L29.9 Pruritus, unspecified (principal); E11.40 Type 2 diabetes mellitus with diabetic neuropathy, unspecified; I11.0 Hypertensive heart disease with heart failure; I50.9 Heart failure, unspecified; Z79.02 Long term (current) use of antithrombotics/antiplatelets; Z79.4 Long term (current) use of insulin; Z79.82 Long term (current) use of aspirin; Z79.899 Other long term (current) drug therapy
CPT/HCPCS: 96372; 99283; J1171; J1200; J2212